=== PATIENT | female | born 1970 | race Caucasian/White ===

== ENCOUNTER 2020-10-25 08:55 | Outpatient (CLI) | payer MEDICARE, OTHER, SELFPAY ==
--- NOTE | ~2020-10-25 | MM_ITS ---
EXAMINATION: MM screening luis BI w wilian HISTORY: Screening TECHNIQUE: Craniocaudal and mediolateral oblique 3-D tomosynthesis images were obtained and synthetic 2-D images were generated. CAD analysis was submitted and interpreted. COMPARISON: Comparison to multiple prior studies sequentially, with oldest reviewed study dated 02/15. BREAST PARENCHYMAL COMPOSITION: There are scattered areas of fibroglandular density. FINDINGS: There is no evidence of suspicious mass, calcification, or architectural distortion to sugg est malignancy in either breast. There has been no suspicious interval change. IMPRESSION: 1. No mammographic evidence of malignancy. 2. Recommend routine screening mammography in one year. BI-RADS Category 1: Negative Reviewed, dictated and finalized at location A. TH CENTER ASSISTANT
== END 2020-10-25 08:56 | disposition home or self-care (01) ==
LOC: ANHIMG 08:58
PROVIDERS: PCP Family Medicine; Visit Provider Family Medicine
DX: Z12.31 Encounter for screening mammogram for malignant neoplasm of breast (principal)
CPT/HCPCS: 77063; 77067

== ENCOUNTER → 2020-11-30 12:35 | Outpatient (CLI) | payer MEDICARE, OTHER, SELFPAY ==
--- NOTE | ~2020-11-30 | US_ITS ---
EXAMINATION: US transvaginal DATE: 11/30/2020 12:56 INDICATION: Right upper quadrant pain. Comparison:No prior studies for comparison. TECHNIQUE: Multiple transabdominal and endovaginal sonographic images of the pelvis performed. FINDINGS: The uterus measures 4.3 x 1.6 x 2.8 cm. The endometrial complex measures 2 mm. The right ovary measures 2 x 1.1 x 1.2 cm and the left ovary measures 2.2 x 1.2 x 1.1 cm. There are small follicles in each ovary. There is normal Doppler signal in the ovaries. There is no free fluid in the pelvis. There are no abnormal masses seen on either side. IMPRESSION: 1. Unremarkable pelvic ultrasound. Reviewed, dictated and finalized at location A. EL SETTER
== END ==
PROVIDERS: PCP Family Medicine; Visit Provider Obstetrics & Gynecology Gynecology
DX: N83.201 Unspecified ovarian cyst, right side (principal)
CPT/HCPCS: 76830

== ENCOUNTER → 2021-01-20 17:37 | Outpatient (CLI) | payer MEDICARE, OTHER, SELFPAY ==
--- NOTE | ~2021-01-20 | DEXA_ITS ---
Bone Density Report Name: Tracey Lambert Age: 50 Sex: Female Ethnicity: White Date of : 1970 Indication: postmenopausal; screening for osteoporosis; height loss; history of glucocorticoids; asthma or emphysema; Referring Provider: JOHANNA MANZANO Study: Bone densitometry was performed. Exam Date: January 20, 2021 Accession number: [id number] Bone Density: Region BMD T-score Z-score Classification AP Spine (L1-L4) 1.298 2.3 3.1 Normal Femoral Neck (Left) 0.875 0.2 1.1 Normal Total Hip (Left) 0.963 0.2 0.7 Normal Femoral Neck (Right) 0.802 -0.4 0.4 Normal Total Hip (Right) 0.920 -0.2 0.3 Normal Total Hip Mean 0.942 0.0 0.5 Normal World Health Organization criteria for BMD impression classify patients as: Normal (T-score at or above -1.0), Osteopenia (T-score between -1.0 and -2.5), or Osteoporosis (T-score at or below -2.5). 10-year Fracture Risk: FRAX not reported because: All T-scores for Spine Total, Hip Total, Femoral Neck at or above -1.0 Previous Exams: Region Exam Age BMD T-score BMD Change BMD Change Date g/cm2 vs Baseline vs Previous AP Spine(L1-L4) 01/20/2021 50 1.298 2.3 0.095 0.082* 07/02/2018 47 1.216 1.5 0.013 0.077 06/23/2014 43 1.140 0.8 -0.064* -0.064* 09/26/2008 38 1.203 1.4 Total Hip(Left) 01/20/2021 50 0.963 0.2 -0.009 0.029* 07/02/2018 47 0.934 -0.1 -0.038 -0.002 06/23/2014 43 0.936 0.0 -0.036* -0.036* 09/26/2008 38 0.972 0.2 Total Hip(Right) 01/20/2021 50 0.920 -0.2 -0.094 -0.005 07/02/2018 47 0.926 -0.1 -0.089 0.024 06/23/2014 43 0.902 -0.3 -0.113* -0.113* 09/26/2008 38 1.015 0.6 *Denotes significance at 95% confidence level, LSC for AP Spine = 0.022 g/cm2, LSC for Total Hip = 0.027 g/cm2 Clinical Information Provided by Patient: Has taken Glucocorticoids Has used the following medications: Vitamin D Has the following medical conditions: Asthma or Emphysema Patient maximum height was 69.5 Does not regularly consume dairy products Drinks caffeinated beverages Onset of menses at age 7 Number of children 0 Missed period for more than 6 months in a row Impression: The patient has normal bone mass. The patient has risk factors, including: history of glucocorticoid therapy. No significant bone
== END ==
PROVIDERS: PCP Family Medicine; Visit Provider Obstetrics & Gynecology Gynecology
DX: Z78.0 Asymptomatic menopausal state (principal)
CPT/HCPCS: 77080

== ENCOUNTER 2021-01-24 12:35 | Inpatient (IN) | payer MEDICARE, OTHER, SELFPAY ==
--- NOTE | ~2021-01-24 | XR_ITS ---
EXAMINATION: XR chest 1V portable DATE: 01/25/2021 15:53 INDICATION: Hypoxia. TECHNIQUE: A single frontal view of the chest was obtained. COMPARISON: Chest 2 views 03/26/2015, CT abdomen and pelvis 01/24/2021 FINDINGS: There is mild atelectasis in the lower lung zones. No pleural effusion or pneumothorax. The heart size is normal. There is a right internal jugular port with tip at superior cavoatrial junctio n. IMPRESSION: 1. Mild atelectasis in the lower lung zones. Reviewed, dictated and finalized at location A.
--- NOTE | ~2021-01-24 | CT_ITS ---
EXAMINATION: CT abdomen pelvis w con DATE: 01/24/2021 15:46 INDICATION: Right lower quadrant abdominal pain. TECHNIQUE: Computed tomography (CT) of the abdomen and pelvis was performed with 100 mL Omnipaque 350 intravenous contrast. Automated exposure control and iterative reconstruction technique were employe d. The dose-length product was 1405.57 mGy-cm. COMPARISON: CT abdomen and pelvis 09/03/2019 FINDINGS: The visualized portions of the lung bases demonstrate mild atelectasis. No pleural effusion . The heart size is normal. No pericardial effusion. The liver is normal. The gallbladder is distende d. The spleen, pancreas, adrenal glands, and kidneys are normal. There is an anastomosis in the recto sigmoid, new from the prior exam. The appendix is absent. There are changes of multiple ventral herni a repairs. There is a small volume of fluid deep to a new mesh in the right lower quadrant. In the ri ght lower quadrant in the expected area of the appendix, there is a 7.1 x 3.6 x 3.5 cm rim-enhancing fluid collection. In the rectouterine pouch, there is a 7.7 x 3.8 x 3.4 cm rim-enhancing fluid collec tion. There is wall thickening of cecum and loops of ileum in right lower quadrant, consistent with i nflammation. There are no pathologically enlarged lymph nodes. There is severe lumbar spondylosis. IMPRESSION: 1. Rim-enhancing fluid collections in the right lower quadrant and rectouterine pouch, consistent wit h abscesses. 2. Gallbladder distention, which may be secondary to fasting. Reviewed, dictated and finalized at location A. IMPRESSION: 1. Rim-enhancing fluid collections in the right lower quadrant and rectouterine pouch, consistent with abscesses. 2. Gallbladder distention, which may be secondary to fasting.
[2021-01-24 12:40] VITALS: BP 131/75; PULSE 113; RESP 18; TEMP 38; O2SAT 98
[2021-01-24 12:58] LABS: Basophils Absolute Auto 0.1 K/mm3 (0.0-0.1); Basophils Percent Auto 0.4 % (0.2-1.2); Eosinophils Absolute Auto 0.3 K/mm3 (0-0.3); Eosinophils Percent Auto 1.8 % (0-4.4); Hematocrit 38.3 % (37.0-47.0); Hemoglobin 13.1 g/dL (12.0-15.0); Immature Granulocyte Absolute 0.08 K/mm3 (0.00-0.031); Immature Granulocyte Percent A 0.5 % (0-0.5); Lymphocytes Absolute Auto 1.67 K/mm3 (0.9-3.2); Lymphocytes Percent Auto 9.8 % (18.3-44.2); Mean Corpuscular HGB Conc 34.2 g/dl (32-36); Mean Corpuscular Hemoglobin 31.6 pg (26-34); Mean Corpuscular Volume 92.3 fl (80-100); Mean Platelet Volume 9.2 fl (7.4-10.4); Monocytes Absolute Auto 1.6 K/mm3 (0.1-0.6); Monocytes Percent Auto 9.2 % (2.6-8.5); Neutrophils Absolute Auto 13.3 K/mm3 (1.3-6.7); Neutrophils Percent Auto 78.3 % (45.5-73.1); Platelet Count Result 457 k/mm3 (150-375); Red Blood Count 4.15 M/mm3 (4.2-5.4); Red Cell Distribution Width 12.8 % (11.5-14.5)
[2021-01-24 13:10] LABS: Alanine Aminotransferase 12 U/L (4-35); Albumin Level 4.1 g/dL (3.5-5.1); Alkaline Phosphatase 65 U/L (38-126); Anion Gap 13 mmol/L (8-16); Aspartate Amino Transferase 18 U/L (14-36); Bilirubin,Total 0.8 mg/dL (0.2-1.3); Blood Urea Nitrogen 8 mg/dL (7-17); Calcium 8.6 mg/dL (8.4-10.2); Carbon Dioxide 21 mmol/L (22-30); Chloride 99 mmol/L (98-107); Estimated CRCL calculation 94 ml/min; Estimated Glomerular Filt Rate > 60; Glucose 116 mg/dL (65-105); Lipase 41 U/L (23-300); Potassium 3.1 mmol/L (3.4-5.0); Sodium 133 mmol/L (137-145)
[2021-01-24 14:36] VITALS: BP 136/74; PULSE 107; RESP 16; O2SAT 98
[2021-01-24] MEDS: SODIUM CHLORIDE 0.9% IV 1,000 ML 999 ML IV CONT (15:56)
[2021-01-24 16:06] LABS: Add Urine Microscopic? YES; Appearance Urine Cloudy (Clear); Bacteria Urine Trace /hpf; Bilirubin Urine Negative (Negative); Blood Urine Negative (Negative); Color Urine Amber (Yellow); Glucose Urine UA Negative (Negative); Ketones Urine 1+ mg/dL (Negative); Leukocyte Esterase Ur Negative LEU/UL (Negative); Mucus Urine Few /lpf; Nitrate Urine Negative (Negative); Protein Urine 2+ mg/dL (Negative); Specific Grav Ur 1.021 (1.001-1.035); Squamous Epithelial Cell Urine Few /hpf (Few); Urobilinogen Urine Negative mg/dL (<2.0)
--- NOTE | 2021-01-24 16:21 | ED.GENADULT ---
HPI - General Adult General Chief complaint: Nausea/Vomiting/Diarrhea Stated complaint: POST OP COMPLICATIONS Time Seen by Provider: 01/24/21 14:38 History of Present Illness HPI narrative: Patient is a 50-year-old female who presents ER with lower abdominal pain and fever. Patient underwent a operation on 12/28/2020 at [facility] by Dr. Zhou. Patient has history of ventral hernia and they placed a mesh in the right lower quadrant where she had some breakdown from previous surgery for partial colectomy. She reports she has been having persistent lower abdominal discomfort over the last month that she thought was related to her healing. She then started having fevers 4 days ago. They have been as high as 104.5 ?F. She reports she has been taking 325 mg of Tylenol to treat her fevers. She reports she feels like she is very dehydrated as she has been having some vomiting as well and is not keeping down food and water for the last 2 days. She denies any diarrhea. No abdominal distention. No abnormal discharge from the vagina. No urinary frequency/urgency/dysuria. Related Data Home Medications Medication Instructions Recorded Confirmed albuterol sulfate 09/03/19 11/03/19 amlodipine 10 mg PO DAILY 09/03/19 11/10/19 ciprofloxacin-dexamethasone drp 09/03/19 11/03/19 [Ciprodex] clindamycin-benzoyl peroxide TOPICAL 09/03/19 11/03/19 epinephrine 0.3 mg SUBCUT DIRECTED 09/03/19 11/10/19 ergocalciferol (vitamin D2) 50,000 unit PO DAILY 09/03/19 11/10/19 fluticasone propionate 50 mcg INTRANASAL DAILY 09/03/19 11/10/19 furosemide 40 mg PO DAILY 09/03/19 11/10/19 guaifenesin [Mucinex] 600 mg PO DAILY 09/03/19 11/10/19 hydrocodone-acetaminophen 2.5 - 325 tablet PO DAILY 09/03/19 11/10/19 lamotrigine 200 mg PO DAILY 09/03/19 11/10/19 omeprazole 20 mg PO DAILY 09/03/19 11/10/19 ondansetron HCl 4 mg PO DAILY 09/03/19 11/10/19 rivaroxaban [Xarelto] 20 mg PO DAILY 09/03/19 11/10/19 theophylline 300 mg PO DAILY 09/03/19 11/03/19 tiotropium bromide [Spiriva with 18 mcg INHALATION DAILY 09/03/19 11/03/19 HandiHaler] tobramycin 0.3 % OPHTHALMIC (EYE) DAILY 09/03/19 11/10/19 mometasone-formoterol HFA 200 2 puff INHALATION BID 11/03/19 11/10/19 mcg-5 mcg/actuation aerosol inhaler benzonatate 200 mg capsule 200 mg PO BID PRN 11/04/20 budesonide 0.5 mg/2 mL suspension 0.5 mg INHALATION DAILY 11/04/20 for nebulization fexofenadine 180 mg tablet 180 mg PO DAILY 11/04/20 ramipril 5 mg capsule 5 mg PO DAILY 11/04/20 Allergies Allergy/AdvReac Type Severity Reaction Status Date / Time aztreonam Allergy Intermediate RASH Verified 09/06/19 12:24 sulfamethoxazole Allergy Intermediate HIVES Verified 09/06/19 12:24 albuterol Allergy Mild Unknown Verified 09/06/19 12:24 adhesive Allergy Unknown rash Verified 09/06/19 12:24 aspirin Allergy Unknown anaphylaxis Verified 09/06/19 12:24 ciprofloxacin Allergy Unknown Unknown Verified 09/06/19 12:24 ibuprofen Allergy Unknown Anaphylaxis Verified 09/06/19 12:24 latex Allergy Unknown Dyspnea Verified 09/06/19 12:24 nifedipine Allergy Unknown Urticaria Verified 09/06/19 12:24 NSAIDS (Non-Steroidal Allergy Unknown Anaphylactic Verified 09/06/19 12:24 Anti-Inflamma Shock Penicillins Allergy Unknown Unknown Verified 09/06/19 12:24 shellfish derived Allergy Unknown Dyspnea / Verified 09/06/19 12:24 SOB soy Allergy Unknown Rash Verified 09/06/19 12:24 sulfamethizole Allergy Unknown Urticaria Verified 09/06/19 12:24 terbinafine Allergy Unknown Urticaria Verified 09/06/19 12:24 trimethoprim Allergy Unknown Unknown Verified 09/06/19 12:24 vancomycin Allergy Unknown Rash Verified 09/06/19 12:24 clioquinol [From Iohydro] AdvReac Dyspnea / Verified 09/06/19 12:24 SOB hydrocortisone [From Iohydro] AdvReac Dyspnea / Verified 09/06/19 12:24 SOB SHELL FISH Allergy Intermediate LIP Uncoded 11/09/19 12:24 SWELLING Review of Systems Review of Systems: All systems reviewed & are unremarkable
[2021-01-24] MEDS: MORPHINE SULFATE (*CRX) 4 MG/ML INJ IV PUSH ×2 (16:33→19:42)
--- NOTE | 2021-01-24 20:02 | PC.NURSE ---
Sarah from [facility] transfer...no beds available at [facility], at capacity. They don't expect anything until at least morning.
[2021-01-24 20:07] VITALS: BP 131/86; PULSE 83; RESP 16; TEMP 36.6; O2SAT 98
--- NOTE | 2021-01-24 23:10 | ADMGEN ---
This patient, Tracey Lambert, was admitted to Medical Room 340-01. Patient/family oriented to hospital policies and general routines including ID bracelet, bed and alarms, visiting hours, pain management, procedures, bathroom and other care routines, personal items, smoking policy, room service/diet, and visiting hours. Information on how to activate the Rapid Response Team has been discussed. Patient/Family are encouraged to report perceived risks to care and to ask questions if they do not understand what they are told or what they should do.
[2021-01-24 23:20] VITALS: BP 131/72; PULSE 116; RESP 20; TEMP 39.4; O2SAT 97; BMI 39.2
[2021-01-24] MEDS: SODIUM CHLORIDE 0.9% IV 1,000 ML 125 ML IV CONT (23:23)
[2021-01-24 23:52] LABS: Lactic Acid Reflex 1.5 mmol/L (0.7-2.1)
[2021-01-24 23:54] VITALS: TEMP 37.1
[2021-01-25] VITALS (9 sets, daily range): BP systolic 117–134; BP diastolic 62–79; PULSE 88–125; RESP 18–22; TEMP 37.7–40.1; O2SAT 88–98
[2021-01-25] MEDS: MORPHINE SULFATE (*CRX) 4 MG/ML INJ IV PUSH ×5 (00:54→16:00)
[2021-01-25] MEDS: ONDANSETRON INJ 4 MG/2 ML VIAL IV PUSH ×3 (00:55→13:54)
--- NOTE | 2021-01-25 05:43 | PM.SD2 ---
Same Day Admit/Disch: HPI History of Present Illness Chief complaint: intrabdominal abscess Narrative: H&P/transfer summary Tracey Lambert is a 50 year old female with a past medical history of immunodeficiency, COPD/asthma, and recent ventral hernia repair who presented to the ER with nausea vomiting and fevers for 4 days. She reports that she had a right ventral hernia repair December 28, 2020 with mesh placed. This was performed at [facility]. She reports that ever since she had surgery she has had intermittent abdominal discomfort. She has noticed that recently her abdominal pain has worsened instead of improving. She reports that she frequently does have low-grade temperatures at specially around times of her immunoglobulin infusions. However over the last 4 days she has had fevers as high as 104.5. She has been taking 325 mg with Tylenol to treat her fevers without relief in symptoms. She reports feeling dry and dehydrated. She has been having some vomiting for the last 2 days. She has not been having any diarrhea. She has some mild abdominal distension but is essentially unchanged from her preop state. She denies any dysuria or hematuria. She has not had any vaginal discharge. She denies any mucus year bloody stools. She received her 2nd COVID vaccine on January 09, 2021. The patient's case was discussed with nurse practitioner rn lactation consultant for the hospitalist service at [facility]. Given the patient's clinical stability in the fact that she was on the medical floor her bed request was changed to a request for medical bed. [facility], [facility] Past Medical History Medical History (Updated 01/25/21 @ 15:34 by Monique Sanchez DO) Abnormal uterine bleeding Anxiety Arthritis Arthropathy of right knee Asthma Bronchitis Colitis Dx 03 September 2019 COPD (chronic obstructive pulmonary disease) Depression DVT (deep venous thrombosis) Emphysema of lung Fibromyalgia Foot fracture, left GERD (gastroesophageal reflux disease) GI bleed History of oxygen administration HLD (hyperlipidemia) HTN (hypertension) IgM deficiency Irritable bowel Ovarian cyst PCOS (polycystic ovarian syndrome) Pneumonia Pulmonary embolism Raynauds syndrome Sinus problem UTI (urinary tract infection) Surgical History Surgical History (Updated 01/25/21 @ 14:07 by Monique Sanchez DO) H/O dilation and curettage H/O sinus surgery History of endometrial ablation History of ventral hernia repair (12/28/20) Hx of appendectomy Hx of tonsillectomy S/P laparoscopic-assisted sigmoidectomy (~03/2020) Performed due to: Stricture resulting in right ventral hernia Family History Family History (Updated 01/25/21 @ 14:09 by Monique Sanchez DO) Father Hypertension Diabetes mellitus Mother Hypertension Acute myocardial infarction Heart disease Rheumatoid arthritis Sibling Hypertension Other Family history of gout Family history of obesity Family history unknown Social History Social History Smoking status: Never smoker Alcohol intake: current Drinks per week: 1 Substance use: never Living arrangements: with family Gender identity (if verbalized by the patient): Female Spiritual care concerns: No Same Day Admit/Disch: Med Pre-admit Medications Home Medications Medication Instructions Recorded Confirmed Type albuterol sulfate 2.5 mg INHALATION Q6H PRN 09/03/19 01/25/21 History amlodipine 10 mg PO DAILY 09/03/19 01/25/21 History clindamycin-benzoyl peroxide 1 applic TOPICAL BID 09/03/19 01/25/21 History epinephrine 0.3 mg SUBCUT DIRECTED PRN 09/03/19 01/25/21 History ergocalciferol (vitamin D2) 50,000 unit PO WEEKLY 09/03/19 01/25/21 History fluticasone propionate 50 mcg INTRANASAL DAILY 09/03/19 01/25/21 History furosemide 40 mg PO DAILY 09/03/19 01/25/21 History guaifenesin [Mucinex] 600 mg PO DAILY 09/03/19 01/25/21 History lamotrigine 200 mg PO BID 09/03/19
[2021-01-25 06:39] LABS: Hematocrit 38.6 % (37.0-47.0); Hemoglobin 12.7 g/dL (12.0-15.0); Mean Corpuscular HGB Conc 32.9 g/dl (32-36); Mean Corpuscular Hemoglobin 31.1 pg (26-34); Mean Corpuscular Volume 94.4 fl (80-100); Mean Platelet Volume 9.3 fl (7.4-10.4); Platelet Count Result 439 k/mm3 (150-375); Red Blood Count 4.09 M/mm3 (4.2-5.4); Red Cell Distribution Width 13.1 % (11.5-14.5); White Blood Count 12.6 K/mm3 (4.5-10.0)
[2021-01-25 06:47] LABS: Anion Gap 10 mmol/L (8-16); Blood Urea Nitrogen 8 mg/dL (7-17); Calcium 8.4 mg/dL (8.4-10.2); Carbon Dioxide 25 mmol/L (22-30); Chloride 102 mmol/L (98-107); Estimated CRCL calculation 94 ml/min; Estimated Glomerular Filt Rate > 60; Glucose 99 mg/dL (65-105); Sodium 137 mmol/L (137-145)
[2021-01-25 06:50] LABS: Potassium 3.2 mmol/L (3.4-5.0)
[2021-01-25] MEDS: SODIUM CHLORIDE 0.9% IV 1,000 ML 100 ML IV CONT (10:01)
[2021-01-25] MEDS: FLUTICASONE PROPIONATE 0.05% NA SPR 16 GM BTL (*BKC) 2 SPRAY NASAL (10:03)
[2021-01-25] MEDS: PANTOPRAZOLE SODIUM IV 40 MG VIAL IV PUSH (10:04)
--- NOTE | 2021-01-25 14:55 | PM.IMPN ---
Progress Note: A&P Assessment and Plan (1) Sepsis: Qualifiers: Sepsis type: sepsis due to unspecified organism Sepsis acute organ dysfunction status: without acute organ dysfunction Qualified Code(s): A41.9 - Sepsis, unspecified organism Code(s): A41.9 - Sepsis, unspecified organism Status: Acute Assessment and Plan: Sepsis criteria met on admission with leukocytosis fever, intra-abdominal abscess. This afternoon patient spiked a fever of 104?, she was given IV Tylenol with improvement of temperature 98?. Will schedule Tylenol q.6 hours IV. She is tachycardic with a stable blood pressure at this time. She was found to be hypoxic, 88% on room air. She was placed on 1 L of oxygen and ordered stat DuoNeb treatment with improvement of her oxygen saturation at 97% on 1 L. will continue monitoring respiratory status Chest x-ray was ordered Patient is on empiric antibiotic therapy with Zosyn and blood cultures are pending. (2) Abscess, intra-abdominal, postoperative: Code(s): T81.43XA - Infection following a procedure, organ and space surgical site, initial encounter Status: Acute Assessment and Plan: The patient has intra-abdominal abscess following ventral hernia repair with mesh placement 12/28/20. Patient is awaiting a bed at [facility]. Patient is on empiric antibiotic therapy with Zosyn. She is currently NPO with ice chips. Blood cultures are pending. Leukocytosis has improved with antibiotic therapy. (3) Hypoxia: Code(s): R09.02 - Hypoxemia Status: Acute Assessment and Plan: Ordering chest x-ray. Could be due to COPD and not taking her inhaler this morning. Will schedule DuoNebs every 6 hours. If patient does have underlying pneumonia she is still being cover with the correct antibiotics with IV Zosyn. (4) COPD (chronic obstructive pulmonary disease): Code(s): J44.9 - Chronic obstructive pulmonary disease, unspecified Status: Acute Assessment and Plan: DuoNeb treatments scheduled. Will continue monitoring her respiratory status. 97% on 1 L at this time. Will wean as tolerated. Time Spent With Patient Time with patient: 25 - 35 minutes Subjective Date/time seen: 01/25/21 14:55 Interval history: Date of service 01/25/21: Evaluated the patient who is awaiting transfer to [facility]. She reports having a fever and shaking chills at this time. She was coughing up some yellow sputum, and she did not take her inhaler this morning for her COPD. She denies any shortness of breath, chest pain. She does have some abdominal distension and discomfort as well as some nausea. She denies any vomiting at this time. Review of Systems Review of Systems: All systems reviewed & are unremarkable except as noted in HPI and below Exam Narrative: Exam Narrative: General: 50-year-old woman laying on her right side in bed bundled up under blankets, shaking. Appears comfortable. In no acute distress. Skin: No jaundice or cyanosis. Good skin turgor. Neck: Full range of motion. Supple. Respiratory: Diffuse wheezing, and coarse breath sounds. No bony chest wall tenderness. Cardiovascular: Tachycardic heart rate, normal rhythm. Lower extremities: No lower extremity edema. Distal pulses are easily palpated. No calf tenderness to palpation. Gastrointestinal: Small laparoscopic abdominal incisions well healing, no signs of erythema, drainage, or abnormality. The abdomen has slight distention and mild tenderness to palpation. Active bowel sounds. Psychiatric: Lucid and oriented. Memory intact. Neurologic: No focal deficits. Speech is clear. No facial drooping. Objective Data Vital Signs Vital Signs: Vital Signs - 24 hr 01/24/21 20:
[2021-01-25] MEDS: ALBUTEROL SULFATE NEB 2.5 MG/0.5 ML INH INHALATION (15:30)
[2021-01-25] MEDS: IPRATROPIUM BR 0.02% INH SOLN 0.5 MG/2.5 ML VIAL INHALATION (15:30)
--- NOTE | 2021-01-25 15:37 | PM.IMHP ---
H&P: HPI History of Present Illness Date/Time: 01/25/21 15:37 Chief Complaint: Fever and abdominal pain Narrative: Tracey Lambert is a 50 year old female with a past medical history of immunodeficiency, COPD/asthma, and recent ventral hernia repair who presented to the ER with nausea vomiting and fevers for 4 days. She reports that she had a right ventral hernia repair December 28, 2020 with mesh placed. This was performed at [facility]. She reports that ever since she had surgery she has had intermittent abdominal discomfort. She has noticed that recently her abdominal pain has worsened instead of improving. She reports that she frequently does have low-grade temperatures at specially around times of her immunoglobulin infusions. However over the last 4 days she has had fevers as high as 104.5. She has been taking 325 mg with Tylenol to treat her fevers without relief in symptoms. She reports feeling dry and dehydrated. She has been having some vomiting for the last 2 days. She has not been having any diarrhea. She has some mild abdominal distension but is essentially unchanged from her preop state. She denies any dysuria or hematuria. She has not had any vaginal discharge. She denies any mucus year bloody stools. She received her 2nd COVID vaccine on January 09, 2021. The patient's case was discussed with nurse practitioner consulting business developer for the hospitalist service at [facility]. Given the patient's clinical stability in the fact that she was on the medical floor her bed request was changed to a request for medical bed. Review of Systems Review of Systems: Narrative: 12 systems were reviewed with pertinent positives and negatives per HPI. Except as documented in the HPI, all other systems were reviewed and are negative. [facility] Past Medical History Medical History (Updated 01/25/21 @ 15:34 by Monique Sanchez DO) Abnormal uterine bleeding Anxiety Arthritis Arthropathy of right knee Asthma Bronchitis Colitis Dx 03 September 2019 COPD (chronic obstructive pulmonary disease) Depression DVT (deep venous thrombosis) Emphysema of lung Fibromyalgia Foot fracture, left GERD (gastroesophageal reflux disease) GI bleed History of oxygen administration HLD (hyperlipidemia) HTN (hypertension) IgM deficiency Irritable bowel Ovarian cyst PCOS (polycystic ovarian syndrome) Pneumonia Pulmonary embolism Raynauds syndrome Sinus problem UTI (urinary tract infection) Surgical History Surgical History (Updated 01/25/21 @ 14:07 by Monique Sanchez DO) H/O dilation and curettage H/O sinus surgery History of endometrial ablation History of ventral hernia repair (12/28/20) Hx of appendectomy Hx of tonsillectomy S/P laparoscopic-assisted sigmoidectomy (~03/2020) Performed due to: Stricture resulting in right ventral hernia Family History Family History (Updated 01/25/21 @ 14:09 by Monique Sanchez DO) Father Hypertension Diabetes mellitus Mother Hypertension Acute myocardial infarction Heart disease Rheumatoid arthritis Sibling Hypertension Other Family history of gout Family history of obesity Family history unknown Social History Social History Smoking status: Never smoker Alcohol intake: current Drinks per week: 1 Substance use: never Living arrangements: with family Gender identity (if verbalized by the patient): Female Spiritual care concerns: No Meds Home Medications and Allergies Home Medications Medication Instructions Recorded Confirmed Type albuterol sulfate 2.5 mg INHALATION Q6H PRN 09/03/19 01/25/21 History amlodipine 10 mg PO DAILY 09/03/19 01/25/21 History clindamycin-benzoyl peroxide 1 applic TOPICAL BID 09/03/19 01/25/21 History epinephrine 0.3 mg SUBCUT DIRECTED PRN 09/03/19 01/25/21 History ergocalciferol (vitamin D2) 50,000 unit PO WEEKLY 09/03/19 01/25/21 History fluticasone propionate 50 mcg INTRANASAL
--- NOTE | 2021-01-25 16:06 | PC.NURSE ---
Observed patient care and reviewed documentation by [facility] student nurse Tiffany Brower
[2021-01-25] MEDS: ENOXAPARIN 120 MG/0.8 ML SYRINGE 115 MG SUB-Q (17:05)
--- NOTE | 2021-01-25 17:52 | PC.NURSE ---
Handoff report given to Shereen at [facility] concerned over Temperature. Pt received IV ofirmev and temperature was taken and reported to Shereen at time of DC.
--- NOTE | 2021-01-27 12:51 | PC.NURSE ---
urine cx results faxed to RN at [facility].
--- NOTE | 2021-01-31 12:17 | PC.NURSE ---
Blood cx are negative.
== END 2021-01-25 17:40 | disposition short-term general hospital (02) | DRG 862 ==
LOC: ANHED 21:32 → ANH3MED 22:09
PROVIDERS: Admitting Provider Internal Medicine; Emergency Provider Emergency Medicine; PCP Family Medicine; Visit Provider Internal Medicine
DX: T81.43XA Infection following a procedure, organ and space surgical site, initial encounter (principal); A41.9 Sepsis, unspecified organism; D83.9 Common variable immunodeficiency, unspecified; R09.02 Hypoxemia; J43.9 Emphysema, unspecified; I10 Essential (primary) hypertension; E78.5 Hyperlipidemia, unspecified; K21.9 Gastro-esophageal reflux disease without esophagitis; M79.7 Fibromyalgia; I73.00 Raynaud's syndrome without gangrene; Z79.01 Long term (current) use of anticoagulants; Z79.899 Other long term (current) drug therapy; Z86.711 Personal history of pulmonary embolism; Z86.718 Personal history of other venous thrombosis and embolism; Z90.49 Acquired absence of other specified parts of digestive tract; Z88.0 Allergy status to penicillin; Z88.2 Allergy status to sulfonamides; Z88.8 Allergy status to other drugs, medicaments and biological substances
CPT/HCPCS: 36415; 71045; 74177; 80048; 80053; 81001; 83605; 83690; 85025; 85027; 87040; 87077; 87086; 87088; 87186; 94640; 96361; 96365; 96375; 96376; 99285; A9270; C9113; G0378; J0131; J1650; J2270; J2405; J2543; J3480; J7030; Q9967

== ENCOUNTER → 2021-09-24 07:49 | Outpatient (CLI) | payer MEDICARE, OTHER, SELFPAY ==
--- NOTE | ~2021-09-24 | US_ITS ---
US abdomen complete EXAMINATION: US Abdomen Complete INDICATION: Nocturnal polyuria PROCEDURE: Realtime High Resolution abdomen ultrasound. COMPARISON: No prior studies for comparison FINDINGS: Gallbladder is surgically absent. Common bile duct measures 3 mm. Liver echotexture within normal limits without focal mass. Pancreas within normal limits. Pancreati c tail is obscured by bowel gas. Spleen is unremarkeable. Renal echotexture is within normal limits bilaterally without hydronephrosis, contour deforming mass or renal stone. Right kidney measures 10.1 cm. Left kidney measures 9.4 cm. Visualized aspects of the aorta and IVC are within normal limits. Portal vein is patent. IMPRESSION: 1: Normal abdominal ultrasound postcholecystectomy. Reviewed, dictated and finalized at location A. [facility]
== END ==
PROVIDERS: Visit Provider Family Medicine
DX: R35.81 Nocturnal polyuria (principal)
CPT/HCPCS: 76700

== ENCOUNTER → 2021-09-26 09:49 | Outpatient (CLI) | payer MEDICARE, OTHER, SELFPAY ==
--- NOTE | ~2021-09-26 | US_ITS ---
EXAMINATION: US pelvic complete DATE: 09/26/2021 10:07 INDICATION: Polyuria. Patient is postmenopausal. No hormone replacement therapy. Comparison:Ultrasound dated 11/30/2020 TECHNIQUE: Multiple transabdominal and endovaginal sonographic images of the pelvis performed. FINDINGS: The uterus measures 5.6 x 2.2 x 2.8 cm. The endometrial complex measures 5 mm. The ovaries are not visualized. There is no free fluid in the pelvis. There are no abnormal masses seen on either side. IMPRESSION: 1. Thickened endomtrial complex. The differential diagnosis includes endometrial hyperplasia, polyp a nd carcinoma. Biopsy is recommended. Reviewed, dictated and finalized at location B. EL TRUCK DRIVER IMPRESSION: 1. Thickened endomtrial complex. The differential diagnosis includes endometria l hyperplasia, polyp and carcinoma. Biopsy is recommended.
== END ==
PROVIDERS: PCP Family Medicine; Visit Provider Family Medicine
DX: R35.81 Nocturnal polyuria (principal); R93.89 Abnormal findings on diagnostic imaging of other specified body structures
CPT/HCPCS: 76856

== ENCOUNTER 2021-10-03 11:35 | Emergency (ER) | payer MEDICARE, OTHER, SELFPAY ==
--- NOTE | ~2021-10-03 | CT_ITS ---
EXAMINATION: CT abdomen pelvis w con EXAM DATE: 10/03/2021 17:48 INDICATION: Right lower quadrant pain. TECHNIQUE: Spiral CT of the abdomen and pelvis was performed following intravenous injection of 100 m L Omnipaque 350. Axial, coronal and sagittal images of the abdomen and pelvis were reviewed. The do se-length product (DLP) for this examination was 1275.63 mGy-cm. The exposure was tailored according to patient size (auto mA exposure control), and iterative reconstruction (ASIR) was used as addition al dose reduction technique. Comparison is made to prior examination from 01/24/2021. FINDINGS: Previously seen pelvic abscess has resolved. Development of left lower lobe subsegmental po steromedial airspace disease which could be bacterial pneumonia. Minimal amount of right lower lobe m edial airspace disease. The liver, spleen, adrenal glands and pancreas are unremarkable. There are cholecystectomy clips. P ortal and splenic veins are patent. Kidneys enhance symmetrically. There is no hydronephrosis. Ther e is punctate left nephrolithiasis. No ureteral stones. The uterus is unremarkable. The bladder is unremarkable. There is no retroperitoneal or pelvic lymphadenopathy. There is mild scattered naomy riosclerotic disease. Anterior abdominal wall mesh anchors. There is a right lower quadrant abdominal wall hernia which is moderate in size with a loop of nonobstructed small bowel bulging inside, is new compared to previous examination. The appendix is not positively visualized. There is no pericecal inflammatory change to suggest appe ndicitis. The stomach and small bowel are unremarkable. There is expected amount of colonic stool. No free intraperitoneal gas. There are no osteoblastic or osteolytic lesions identified. IMPRESSION: 1. Small amount of bibasilar left greater than right subsegmental airspace disease, would favor bact erial pneumonia over atelectasis. 2. Development of right lower quadrant hernia containing nonobstructed small bowel. 3. Punctate left nephrolithiasis. Reviewed, dictated and finalized at location A. ESTATE MARKETING COORDINATOR IMPRESSION: 1. Small amount of bibasilar left greater than right subsegmental airspace dis ease, would favor bacterial pneumonia over atelectasis. 2. Development of right lower quadrant hernia containing nonobstructed small b owel. 3. Punctate left nephrolithiasis.
[2021-10-03 11:55] VITALS: BP 138/91; PULSE 104; RESP 16; TEMP 36.8; O2SAT 96
[2021-10-03 15:33] VITALS: BP 143/79; PULSE 105; TEMP 38.7; O2SAT 100
[2021-10-03 16:33] LABS: Add Urine Microscopic? YES; Appearance Urine Cloudy (Clear); Bacteria Urine Trace /hpf; Bilirubin Urine Negative (Negative); Blood Urine Negative (Negative); Color Urine Yellow (Yellow); Glucose Urine UA Negative (Negative); Ketones Urine Trace mg/dL (Negative); Leukocyte Esterase Ur Negative LEU/UL (Negative); Mucus Urine Rare /lpf; Nitrate Urine Negative (Negative); Protein Urine Negative (Negative); Specific Grav Ur 1.018 (1.001-1.035); Squamous Epithelial Cell Urine Few /hpf (Few); Urobilinogen Urine Negative mg/dL (<2.0); WBC Urine 0-3 /hpf
[2021-10-03 16:54] VITALS: BP 137/76; PULSE 98; RESP 18; O2SAT 98
[2021-10-03 17:04] VITALS: BP 149/100; PULSE 100; RESP 17; O2SAT 96
[2021-10-03 17:04] LABS: Basophils Absolute Auto 0.1 K/mm3 (0.0-0.1); Basophils Percent Auto 0.6 % (0.2-1.2); Eosinophils Absolute Auto 0.3 K/mm3 (0-0.3); Eosinophils Percent Auto 2.4 % (0-4.4); Hematocrit 35.2 % (37.0-47.0); Hemoglobin 12.2 g/dL (12.0-15.0); Immature Granulocyte Absolute 0.04 K/mm3 (0.00-0.031); Immature Granulocyte Percent A 0.3 % (0-0.5); Lymphocytes Absolute Auto 1.97 K/mm3 (0.9-3.2); Lymphocytes Percent Auto 15.6 % (18.3-44.2); Mean Corpuscular HGB Conc 34.7 g/dl (32-36); Mean Corpuscular Hemoglobin 32.5 pg (26-34); Mean Corpuscular Volume 93.9 fl (80-100); Mean Platelet Volume 9.2 fl (7.4-10.4); Monocytes Absolute Auto 1.3 K/mm3 (0.1-0.6); Monocytes Percent Auto 10.5 % (2.6-8.5); Neutrophils Absolute Auto 8.9 K/mm3 (1.3-6.7); Neutrophils Percent Auto 70.6 % (45.5-73.1); Platelet Count Result 337 k/mm3 (150-375); Red Blood Count 3.75 M/mm3 (4.2-5.4); Red Cell Distribution Width 13.4 % (11.5-14.5); White Blood Count 12.6 K/mm3 (4.5-10.0)
[2021-10-03 17:14] LABS: Lactic Acid Reflex 0.8 mmol/L (0.7-2.1)
[2021-10-03 17:16] LABS: Alanine Aminotransferase 15 U/L (4-35); Albumin Level 4.4 g/dL (3.5-5.1); Alkaline Phosphatase 71 U/L (38-126); Anion Gap 13 mmol/L (8-16); Aspartate Amino Transferase 23 U/L (14-36); Bilirubin,Total 0.6 mg/dL (0.2-1.3); Blood Urea Nitrogen 7 mg/dL (7-17); Calcium 9.1 mg/dL (8.4-10.2); Carbon Dioxide 22 mmol/L (22-30); Chloride 98 mmol/L (98-107); Estimated CRCL calculation 107 ml/min; Estimated Glomerular Filt Rate > 60; Glucose 107 mg/dL (65-110); Lipase 57 U/L (23-300); Potassium 3.1 mmol/L (3.4-5.0); Sodium 133 mmol/L (137-145)
--- NOTE | 2021-10-03 18:38 | ED.ABDPAIN ---
HPI - Abdominal Pain General Chief Complaint: Abdominal Pain Stated Complaint: abd pain Time Seen by Provider: 10/03/21 16:11 Source: patient Mode of arrival: ambulatory Limitations: no limitations History of Present Illness HPI narrative: 51-year-old with a history of hypertension, hyperlipidemia, PCOS, multiple other medical problems here with complaints of fever and associated with right lower abdominal pain for past 2 to 3 days. She states her temperature was 100.3 this morning. She denies any nausea or vomiting. She states that she had diarrhea. Patient states that she becomes septic quite often. MD elicited complaint: abdominal pain Onset (ago): day(s) (3) Pain Consistency: constant Quality: cramping and aching Radiation: RLQ Migration to: no migration Exacerbating factors: nothing Relieving factors: nothing Related Data Home Medications Medication Instructions Recorded Confirmed albuterol sulfate 2.5 mg INHALATION Q6H PRN 09/03/19 01/25/21 amlodipine 10 mg PO DAILY 09/03/19 01/25/21 clindamycin-benzoyl peroxide 1 applic TOPICAL BID 09/03/19 01/25/21 epinephrine 0.3 mg SUBCUT DIRECTED PRN 09/03/19 01/25/21 ergocalciferol (vitamin D2) 50,000 unit PO WEEKLY 09/03/19 01/25/21 fluticasone propionate 50 mcg INTRANASAL DAILY 09/03/19 01/25/21 furosemide 40 mg PO DAILY 09/03/19 01/25/21 guaifenesin [Mucinex] 600 mg PO DAILY 09/03/19 01/25/21 lamotrigine 200 mg PO BID 09/03/19 01/25/21 omeprazole 40 mg PO BID 09/03/19 01/25/21 ondansetron HCl 4 mg PO Q8H PRN 09/03/19 01/25/21 rivaroxaban [Xarelto] 20 mg PO DAILY 09/03/19 01/25/21 theophylline 300 mg PO BID 09/03/19 01/25/21 tiotropium bromide [Spiriva with 18 mcg INHALATION DAILY 09/03/19 01/25/21 HandiHaler] mometasone-formoterol HFA 200 2 puff INHALATION BID 11/03/19 01/25/21 mcg-5 mcg/actuation aerosol inhaler benzonatate 200 mg capsule 200 mg PO TID PRN 11/04/20 01/25/21 budesonide 0.5 mg/2 mL suspension 0.5 mg INHALATION DAILY 11/04/20 01/25/21 for nebulization fexofenadine 180 mg tablet 180 mg PO DAILY 11/04/20 01/25/21 ramipril 5 mg capsule 5 mg PO BID 11/04/20 01/25/21 cetirizine-pseudoephedrine 1 tablet PO DAILY 01/25/21 01/25/21 diphenhydramine HCl [Allergy 25 mg PO HS 01/25/21 01/25/21 (diphenhydramine)] fluticasone propionate [Flovent 1 puff INHALATION BID 01/25/21 01/25/21 HFA] althea (Zingiber officinalis) 550 mg PO BIDWMEAL 01/25/21 01/25/21 hydrocodone-acetaminophen 1 tablet PO Q4H PRN 01/25/21 01/25/21 peg 400-propylene glycol [Systane 1 drp EACH EYE BID PRN 01/25/21 01/25/21 (propylene glycol)] polyethylene glycol 3350 17 g PO DAILY 01/25/21 01/25/21 Allergies Allergy/AdvReac Type Severity Reaction Status Date / Time shellfish derived Allergy Severe Swelling Verified 10/03/21 17:06 of Lip/Tongue/Throat aztreonam Allergy Intermediate RASH Verified 10/03/21 17:06 sulfamethoxazole Allergy Intermediate HIVES Verified 10/03/21 17:06 albuterol Allergy Mild Unknown Verified 10/03/21 17:06 adhesive Allergy Unknown rash Verified 10/03/21 17:06 aspirin Allergy Unknown anaphylaxis Verified 10/03/21 17:06 ciprofloxacin Allergy Unknown Unknown Verified 10/03/21 17:06 ibuprofen Allergy Unknown Anaphylaxis Verified 10/03/21 17:06 latex Allergy Unknown Dyspnea Verified 10/03/21 17:06 nifedipine Allergy Unknown Urticaria Verified 10/03/21 17:06 NSAIDS (Non-Steroidal Allergy Unknown Anaphylactic Verified 10/03/21 17:06 Anti-Inflamma Shock Penicillins Allergy Unknown Unknown Verified 10/03/21 17:06 sulfamethizole Allergy Unknown Urticaria Verified 10/03/21 17:06 terbinafine Allergy Unknown Urticaria Verified 10/03/21 17:06 trimethoprim Allergy Unknown Unknown Verified 10/03/21 17:06 vancomycin Allergy Unknown Rash Verified 10/03/21 17:06 clioquinol [From Iohydro] AdvReac Dyspnea / Verified 10/03/21 17:06 SOB hydrocortisone [From Ionoonan] AdvReac Dyspnea / Verified 10/03/21 17:06 SOB Review of Systems Review of Systems: All system
[2021-10-03] MEDS: ACETAMINOPHEN 325 MG TABLET 650 MG PO (19:06)
[2021-10-03] MEDS: HEPARIN SODIUM LOCK FLUSH 500 UNITS/5 ML VIAL (19:12)
[2021-10-03 19:20] VITALS: BP 154/86; PULSE 100; RESP 14; O2SAT 97
== END 2021-10-03 19:21 | disposition home or self-care (01) ==
PROVIDERS: Emergency Provider Family Medicine; PCP Family Medicine
DX: J18.9 Pneumonia, unspecified organism (principal); R10.31 Right lower quadrant pain; I10 Essential (primary) hypertension; E78.5 Hyperlipidemia, unspecified; E28.2 Polycystic ovarian syndrome; J43.9 Emphysema, unspecified; K58.9 Irritable bowel syndrome, unspecified; I73.00 Raynaud's syndrome without gangrene; Z86.718 Personal history of other venous thrombosis and embolism; Z86.711 Personal history of pulmonary embolism; Z87.440 Personal history of urinary (tract) infections; K46.9 Unspecified abdominal hernia without obstruction or gangrene; N20.0 Calculus of kidney
CPT/HCPCS: 36415; 74177; 80053; 81001; 83605; 83690; 85025; 99284; A9270; J1642; Q9967

== ENCOUNTER → 2021-11-02 13:02 | Outpatient (CLI) | payer MEDICARE, OTHER, SELFPAY ==
--- NOTE | ~2021-11-02 | US_ITS ---
EXAMINATION: US thyroid DATE: 11/02/2021 13:27 INDICATION: Goiter. TECHNIQUE: Multiple ultrasound images of the thyroid were obtained. COMPARISON: Ultrasound 08/15/2019 FINDINGS: The right thyroid lobe measures 4.6 x 1.5 x 1.5 cm. The left thyroid lobe measures 3.7 x 1.4 x 1.4 c m. In the right thyroid lobe, there is a 4 mm nodule. IMPRESSION: 1. Small thyroid nodule, likely not clinically significant. No follow-up is needed. Reviewed, dictated and finalized at location A. HASING COORDINATOR IMPRESSION: 1. Small thyroid nodule, likely not clinically significant. No follow-up is nee ded.
== END ==
PROVIDERS: Visit Provider Internal Medicine Endocrinology, Diabetes & Metabolism
DX: E04.1 Nontoxic single thyroid nodule (principal)
CPT/HCPCS: 76536

== ENCOUNTER → 2021-11-04 11:54 | Outpatient (CLI) | payer MEDICARE, OTHER, SELFPAY ==
--- NOTE | ~2021-11-04 | MM_ITS ---
EXAMINATION: MM screening [facility] BI w wilian HISTORY: Screening mammogram TECHNIQUE: Craniocaudal and mediolateral oblique 3-D tomosynthesis images were obtained and synthetic 2-D images were generated. CAD analysis was submitted and interpreted. COMPARISON: 10/25/2020, 07/28/2019, 06/05/2018 BREAST PARENCHYMAL COMPOSITION: The breasts are almost entirely fatty. FINDINGS: There is no evidence of suspicious mass, calcification, or architectural distortion to sugg est malignancy in either breast. There has been no suspicious interval change. IMPRESSION: 1. No mammographic evidence of malignancy. 2. Recommend routine screening mammography in one year. BI-RADS Category 1: Negative Reviewed, dictated and finalized at location A. D COOK
== END ==
PROVIDERS: Visit Provider Obstetrics & Gynecology Gynecology
DX: Z12.31 Encounter for screening mammogram for malignant neoplasm of breast (principal)
CPT/HCPCS: 77063; 77067

== ENCOUNTER 2021-11-11 09:33 | Outpatient (CLI) | payer MEDICARE, OTHER, SELFPAY ==
[2021-11-15 14:34] LABS: Theophylline 7.7 mg/L (10.0-20.0)
== END 2021-11-11 09:34 | disposition home or self-care (01) ==
PROVIDERS: Anesthesiology; Visit Provider Obstetrics & Gynecology Gynecology
DX: Z01.812 Encounter for preprocedural laboratory examination (principal); Z51.81 Encounter for therapeutic drug level monitoring; Z79.899 Other long term (current) drug therapy
CPT/HCPCS: 36415; 80198

== ENCOUNTER 2021-11-14 00:15 | Day surgery (SDC) | payer MEDICARE, OTHER, SELFPAY ==
--- NOTE | 2021-11-08 10:12 | PC.NURSE ---
Report to the Outpatient Waiting Room, entrance under the green pavilion located off [facility], at time 8:00 on date 11/14/21. OR Time: 10:00. - You will be asked a series of questions to screen for COVID 19 for your protection. - A mask is required within the hospital. - No visitors are allowed at this time. Preoperative COVID Testing Requirements: No COVID Test needed if: (proof is required; if not received patient will have Rapid Test prior to entry) - Patient has received COVID Vaccine at least 14 days prior to procedure date or - Patient has positive COVID test result within last 90 days of surgery date. COVID Test needed if above criteria is not met Patients may have clear liquids (water, carbonated beverages, clear teas, apple juice) until 3 hours prior to surgery (7:00) with a maximum of 20 ounces. - No food from midnight until time of surgery Take the following medications with a SIP of water the morning of surgery: INHALERS. AMLODIPINE, THEOPHYLLINE Medications to discontinue per physician: VITAMINS/SUPPLEMENTS Date to take last dose: 11/10/[address] MANZANO (5 DAYS PRIOR TO SURGERY, LAST DOSE 11/08/21) Please no make-up, nail yemeni, hairspray, perfume, deodorant, or body powder the day of surgery. No jewelry (including any body piercings) or valuables the day of surgery, leave them at home. Please take a shower or bath the night before, or the morning of, surgery with an antibacterial soap. Wear comfortable, loose fitting clothing. - Jewelry must be removed prior to entering the operating room. Rings and piercings that are not removed may be cut off. - The hospital will not accept responsibility for valuables. - Please leave all valuables, including medications, at home the day of surgery. If you are going home after surgery, a licensed pile driver engineer must drive you home. - NO public transportation without another adult. - We recommend that an adult stay with you for 24 hours following discharge. - We also recommend that you do not drive, make important decision, drink alcoholic beverages, or take any drugs that were not prescribed by your health care provider for at least 24 hours after your discharge time. Follow any additional instructions given to you from your surgeon. Telephone instructions given to FEDERICO TORRES and asked if any additional questions and then verbalized understanding. Patient advised to call surgeon office or pre surgery nurse liaison [phone] if any additional questions.
[2021-11-14 06:11] VITALS: BP 147/79; PULSE 91; RESP 20; TEMP 36.5; O2SAT 98
[2021-11-14] MEDS: ACETAMINOPHEN 500 MG TABLET 1000 MG PO (06:34)
[2021-11-14] MEDS: LACTATED RINGERS 1,000 ML 30 ML IV CONT (06:40)
--- NOTE | 2021-11-14 06:57 | WPDANESEPPF ---
Anes - Initial Pre Proc Eval Procedure: Operation Date: 11/14/21 07:30 Proposed Procedures p Hysteroscopy, Dilation and Curettage - Ketty Hinds MD Date/Time: 11/14/21 06:57 Surgeon: Ketty Hinds MD Pre Op Diagnosis: Thickened Endometrium Patient Data Age: 51 Gender: F Height: 1.7 m Weight: 116.9 kg Allergies Allergy/AdvReac Type Severity Reaction Status Date / Time shellfish derived Allergy Severe Swelling Verified 11/14/21 06:13 of Lip/Tongue/Throat aztreonam Allergy Intermediate RASH Verified 11/14/21 06:13 sulfamethoxazole Allergy Intermediate HIVES Verified 11/14/21 06:13 adhesive Allergy Unknown rash Verified 11/14/21 06:13 aspirin Allergy Unknown anaphylaxis Verified 11/14/21 06:13 ciprofloxacin Allergy Unknown Unknown Verified 11/14/21 06:13 ibuprofen Allergy Unknown Anaphylaxis Verified 11/14/21 06:13 latex Allergy Unknown Dyspnea Verified 11/14/21 06:13 nifedipine Allergy Unknown Urticaria Verified 11/14/21 06:13 NSAIDS (Non-Steroidal Allergy Unknown Anaphylactic Verified 11/14/21 06:13 Anti-Inflamma Shock sulfamethizole Allergy Unknown Urticaria Verified 11/14/21 06:13 terbinafine Allergy Unknown Urticaria Verified 11/14/21 06:13 trimethoprim Allergy Unknown Unknown Verified 11/14/21 06:13 vancomycin Allergy Unknown Rash Verified 11/14/21 06:13 Home Medications Medication Instructions Recorded Confirmed Type albuterol sulfate 2.5 mg INHALATION Q6H PRN 09/03/19 11/14/21 History amlodipine 10 mg PO DAILY 09/03/19 11/14/21 History epinephrine 0.3 mg SUBCUT DIRECTED PRN 09/03/19 11/08/21 History ergocalciferol (vitamin D2) 50,000 unit PO WEEKLY 09/03/19 11/14/21 History fluticasone propionate 50 mcg INTRANASAL DAILY 09/03/19 11/14/21 History furosemide 40 mg PO DAILY 09/03/19 11/14/21 History guaifenesin [Mucinex] 600 mg PO DAILY 09/03/19 11/08/21 History lamotrigine 200 mg PO BID 09/03/19 11/14/21 History omeprazole 40 mg PO BID 09/03/19 11/14/21 History ondansetron HCl 4 mg PO Q8H PRN 09/03/19 11/14/21 History rivaroxaban [Xarelto] 20 mg PO DAILY 09/03/19 11/14/21 History theophylline 300 mg PO BID 09/03/19 11/14/21 History tiotropium bromide [Spiriva with 18 mcg INHALATION DAILY 09/03/19 11/14/21 History HandiHaler] mometasone-formoterol HFA 200 2 puff INHALATION BID 11/03/19 11/14/21 History mcg-5 mcg/actuation aerosol inhaler fexofenadine 180 mg tablet 180 mg PO DAILY 11/04/20 11/14/21 History ramipril 5 mg capsule 5 mg PO BID 11/04/20 11/14/21 History cetirizine-pseudoephedrine 1 tablet PO DAILY 01/25/21 11/14/21 History diphenhydramine HCl [Allergy 25 mg PO HS 01/25/21 11/14/21 History (diphenhydramine)] fluticasone propionate [Flovent 1 puff INHALATION BID 01/25/21 11/14/21 History HFA] hydrocodone-acetaminophen 1 tablet PO Q4H PRN 01/25/21 11/14/21 History Patient hx anesthesia problems: post op nausea/vomiting Family hx anesthesia problems: none Results Review: All pre-operative results and documents have been reviewed as part of the pre-operative evaluation. [facility] Past Medical History Medical History Abnormal uterine bleeding Anxiety Arthritis Arthropathy of right knee Asthma Bronchitis Colitis Dx 03 September 2019 COPD (chronic obstructive pulmonary disease) Depression DVT (deep venous thrombosis) Emphysema of lung Fibromyalgia Foot fracture, left GERD (gastroesophageal reflux disease) GI bleed History of oxygen administration HLD (hyperlipidemia) HTN (hypertension) IgM deficiency Irritable bowel Ovarian cyst PCOS (polycystic ovarian syndrome) Pneumonia Pulmonary embolism Raynauds syndrome Sinus problem UTI (urinary tract infection) Surgical History Surgical History H/O dilation and curettage H/O sinus surgery History of endometrial ablation History of ventral hernia repair (12/28/20) Hx of appendectomy Hx of t
--- NOTE | 2021-11-14 06:59 | WPDHPUPDATE1 ---
History and Physical Update Update Date/Time: 11/14/21 06:59 History and Physical has been reviewed, including an updated exam of the patient. There are NO changes in the patient's condition. Risks, benefits, and alternatives have been discussed and questions answered. Patient agrees to proceed with procedure.
--- NOTE | 2021-11-14 06:59 | PM.HPGS ---
History of Present Illness History of Present Illness Consent: Risks, benefits, and alternatives have been discussed and questions answered. Patient agrees to proceed with procedure. Chief complaint: Thickened Endometrium Narrative: Tracey Lambert is a 51 year old female with thickened endometrium found on u/s. Patient without vaginal bleeding. History of endometrial ablation. Patient has taken cytotec for last 5 nights. Discussed with patient risks of infection, bleeding, perforation, and inability to enter cavity. Possible pathology also discussed. Agrees to proceed. PENDING SALE TO [facility] Past Medical History Medical History (Updated 11/14/21 @ 07:06 by Ketty Hinds MD) Anxiety Arthritis Arthropathy of right knee Asthma Colitis Dx 03 September 2019 Common variable immunodeficiency COPD (chronic obstructive pulmonary disease) Depression DVT (deep venous thrombosis) Emphysema of lung Fibromyalgia Foot fracture, left GERD (gastroesophageal reflux disease) GI bleed HLD (hyperlipidemia) HTN (hypertension) IgM deficiency Irritable bowel PCOS (polycystic ovarian syndrome) Pulmonary embolism Raynauds syndrome Surgical History Surgical History (Updated 11/14/21 @ 07:05 by Ketty Hinds MD) H/O dilation and curettage H/O laminectomy H/O sinus surgery History of endometrial ablation History of knee surgery x 2 right x 1 left History of ventral hernia repair (12/28/20) Hx of appendectomy Hx of tonsillectomy S/P laparoscopic-assisted sigmoidectomy (~03/2020) Performed due to: Stricture resulting in right ventral hernia Family History Family History Father Hypertension Diabetes mellitus Mother Hypertension Acute myocardial infarction Heart disease Rheumatoid arthritis Sibling Hypertension Other Family history of gout Family history of obesity Family history unknown Social History Social History Smoking status: Never smoker Alcohol intake: current Drinks per week: 1 Alcohol use details: A FEW/MONTH Substance use: never Substance use type: does not use Living arrangements: with family Gender identity (if verbalized by the patient): Female Spiritual care concerns: No Meds Home Medications and Allergies Home Medications Medication Instructions Recorded Confirmed Type albuterol sulfate 2.5 mg INHALATION Q6H PRN 09/03/19 11/14/21 History amlodipine 10 mg PO DAILY 09/03/19 11/14/21 History epinephrine 0.3 mg SUBCUT DIRECTED PRN 09/03/19 11/08/21 History ergocalciferol (vitamin D2) 50,000 unit PO WEEKLY 09/03/19 11/14/21 History fluticasone propionate 50 mcg INTRANASAL DAILY 09/03/19 11/14/21 History furosemide 40 mg PO DAILY 09/03/19 11/14/21 History guaifenesin [Mucinex] 600 mg PO DAILY 09/03/19 11/08/21 History lamotrigine 200 mg PO BID 09/03/19 11/14/21 History omeprazole 40 mg PO BID 09/03/19 11/14/21 History ondansetron HCl 4 mg PO Q8H PRN 09/03/19 11/14/21 History rivaroxaban [Xarelto] 20 mg PO DAILY 09/03/19 11/14/21 History theophylline 300 mg PO BID 09/03/19 11/14/21 History tiotropium bromide [Spiriva with 18 mcg INHALATION DAILY 09/03/19 11/14/21 History HandiHaler] mometasone-formoterol HFA 200 2 puff INHALATION BID 11/03/19 11/14/21 History mcg-5 mcg/actuation aerosol inhaler fexofenadine 180 mg tablet 180 mg PO DAILY 11/04/20 11/14/21 History ramipril 5 mg capsule 5 mg PO BID 11/04/20 11/14/21 History cetirizine-pseudoephedrine 1 tablet PO DAILY 01/25/21 11/14/21 History diphenhydramine HCl [Allergy 25 mg PO HS 01/25/21 11/14/21 History (diphenhydramine)] fluticasone propionate [Flovent 1 puff INHALATION BID 01/25/21 11/14/21 History HFA] hydrocodone-acetaminophen 1 tablet PO Q4H PRN 01/25/21 11/14/21 History Allergies Allergy/AdvReac Type Severity Reaction Status Date / Time shellfish derived Allergy Severe Swelling Veri
[2021-11-14] MEDS: FAMOTIDINE 20 MG/2 ML VIAL IV PUSH (07:09)
[2021-11-14] MEDS: ONDANSETRON INJ 4 MG/2 ML VIAL IV PUSH (07:11)
[2021-11-14] MEDS: MIDAZOLAM HCL (*CRX) 2 MG/2 ML VIAL IV PUSH (07:13)
[2021-11-14] MEDS: LIDOCAINE HCL 1% LOCAL INJ 2 ML AMPUL 30 ML INFILTRATE (07:40)
--- NOTE | 2021-11-14 07:51 | P.OP_ITS ---
Procedure Note - Detailed Date of Procedure 11/14/21 Pre-op Diagnosis Thickened Endometrium Post-op Diagnosis same Procedure Performed D&C hysteroscopy Surgeon Ketty Hinds MD Anesthesia MAC and local Findings Stenotic os with uterus measuring 5.5cm. Endometrium scarred with no thickened areas visible. Description of Procedure The patient is taken the operating room and placed under anesthesia in the dorsal lithotomy position. She was prepped and draped in the usual sterile fashion. [place] speculum was placed in the vagina and the cervix was grasped on the anterior lip with a tenaculum. The uterus is attempted to be sounded and the internal os is stenotic. The os Finders are used and able to enter the endometrium. The uterus is sounded to 5.5cm. The cervix is serially dilated with Hegar to an 8. The tenaculum pulled off the anterior lip x3 during this process. It was finally grasped at 1 to 3 o'clock and held. The diagnostic hysteroscope was placed with no abnormalities noted. Small sharp curette is used to curette the endometrium until a good uterine cry was noted in all areas. Minimal materials obtained consistent with the scarred atrophic appearance. All instruments are removed. Patient was awakened from anesthesia and taken to recovery in stable condition. Estimated Blood Loss 5 Drains No Packing No Pathology yes (Endometrial curettings) Complications No immediate complications Condition stable Disposition PACU
[2021-11-14 07:55] VITALS: BP 139/83; PULSE 95; RESP 18; O2SAT 97
[2021-11-14 08:20] VITALS: BP 131/80; PULSE 86; RESP 18; O2SAT 97
[2021-11-14] MEDS: oxyCODONE HCL (*CRX) 5 MG TAB IR PO (08:20)
[2021-11-14 08:45] VITALS: BP 125/72; PULSE 80; RESP 18
== END 2021-11-14 08:55 | disposition home or self-care (01) ==
PROVIDERS: PCP Family Medicine; Visit Provider Obstetrics & Gynecology Gynecology
PROC: 0U5B8ZZ Destruction of Endometrium, Via Natural or Artificial Opening Endoscopic (ICD-10-PCS; CPT 58563; principal; 2021-11-14 07:30)
DX: R93.89 Abnormal findings on diagnostic imaging of other specified body structures (principal); N88.2 Stricture and stenosis of cervix uteri; J44.9 Chronic obstructive pulmonary disease, unspecified; M19.90 Unspecified osteoarthritis, unspecified site; J45.909 Unspecified asthma, uncomplicated; K52.9 Noninfective gastroenteritis and colitis, unspecified; F41.8 Other specified anxiety disorders; Z86.718 Personal history of other venous thrombosis and embolism; K21.9 Gastro-esophageal reflux disease without esophagitis; E78.5 Hyperlipidemia, unspecified; I10 Essential (primary) hypertension; E28.2 Polycystic ovarian syndrome; I73.00 Raynaud's syndrome without gangrene; K92.2 Gastrointestinal hemorrhage, unspecified; Z79.01 Long term (current) use of anticoagulants; Z79.51 Long term (current) use of inhaled steroids; Z79.82 Long term (current) use of aspirin; E66.9 Obesity, unspecified; Z68.41 Body mass index [BMI] 40.0-44.9, adult
CPT/HCPCS: 58558; 88305; A9270; J2250; J2405; J2704; J3010; J7030; J7120

== ENCOUNTER 2022-02-21 10:43 | Emergency (ER) | payer MEDICARE, OTHER, SELFPAY ==
--- NOTE | ~2022-02-21 | CT_ITS ---
EXAMINATION: CT abdomen pelvis w con DATE: 02/21/2022 12:28 INDICATION: Right lower quadrant abdominal pain, fever. TECHNIQUE: Computed tomography (CT) of the abdomen and pelvis was performed with 100 CC Omnipaque 350 intravenous contrast. Automated exposure control and iterative reconstruction technique were employe d. Exam dose: 1377.22 mGy-cm total exam DLP. COMPARISON: 10/03/2021 CT abdomen pelvis FINDINGS: There is mild discoid atelectasis or scarring of the middle lobe and lingula and to a minim al extent the dependent posteromedial basilar left lower lobe. Normal heart size. No pericardial or pleural effusion. Status post cholecystectomy. No hepatic space-occupying mass lesion. No bile duct or pancreatic duct dilatation. No pancreatic mass lesion or calcification. Normal splenic size. 7.7 mm splenic cyst. Normal morphology of the adrenal glands. No renal mass lesion or urinary tract calculus or hydroureteronephrosis. The urinary bladder is unrem arkable. The uterus and adnexal areas are unremarkable. Normal caliber of the abdominal aorta. No intraperitoneal or retroperitoneal or pelvic mass lesion or adenopathy or ascites. There is a suture line in the distal sigmoid colon. Right lateral lower quadrant ventral abdominal wall hernia containing nonobstructed non strangulated small bowel. The mouth of the hernia is up to approximately 3.8 cm maximal width. Hernia sac measures up to 5.3 cm depth and 8 cm width. Status post ventral abdominal wall hernia repair There is degenerative change at the apophyseal joints with associated grade 1 anterolisthesis at L4-5 . Severe degenerative disc disease at L5-S1. IMPRESSION: Right lower quadrant anterolateral abdominal wall hernia containing nonobstructed small bowel Status post ventral abdominal wall hernia repair Status post cholecystectomy Status post sigmoid colon resection Reviewed, dictated and finalized at [facility]. Reviewed, dictated and finalized at location [facility]. IMPRESSION: Right lower quadrant anterolateral abdominal wall hernia containin g nonobstructed small bowel Status post ventral abdominal wall hernia repair Status post cholecystectomy Status post sigmoid colon resection
--- NOTE | ~2022-02-21 | XR_ITS ---
EXAMINATION: XR chest 2V DATE: 02/21/2022 11:20 INDICATION: Wheezing TECHNIQUE: PA and lateral views of the chest were obtained. COMPARISON: Chest radiograph dated 01/25/[address] dated 05/27/2019 FINDINGS: Dual-lumen right internal jugular central venous port catheter with distal tip at the caudal superior vena cava. Persistent chronic bandlike opacities at the lingula and right middle lobe consistent wit h discoid atelectasis/scarring. No new airspace opacities, pulmonary edema, pleural effusion or pneum othorax. The cardiomediastinal silhouette is normal. Mild thoracic spondylosis with chronic mild ante rior wedging at T6. Cholecystectomy clips in the right upper quadrant. IMPRESSION: 1. Chronic discoid atelectasis/scarring at the lingula and right middle lobe. No acute cardiopulmonar y disease. Reviewed, dictated and finalized at [facility]. IMPRESSION: 1. Chronic discoid atelectasis/scarring at the lingula and right middle lobe. N o acute cardiopulmonary disease.
[2022-02-21 10:45] VITALS: BP 156/95; PULSE 110; RESP 24; TEMP 36.2; O2SAT 94
--- NOTE | 2022-02-21 10:55 | ECG_ITS ---
Measurements Intervals [place] Rate: 98 P: 37 MD: 151 QRS: -5 QRSD: 106 T: 16 QT: 354 QTc: 453 Interpretive Statements SINUS RHYTHM NO PREVIOUS ECG AVAILABLE FOR COMPARISON Electronically Signed On 02-22-2022 13:30:32 CDT by Daisy Fabian M.D.
[2022-02-21 11:04] VITALS: RESP 24; O2SAT 96
[2022-02-21 11:10] LABS: Basophils Absolute Auto 0.1 K/mm3 (0.0-0.1); Eosinophils Absolute Auto 0.9 K/mm3 (0-0.3); Eosinophils Percent Auto 10.1 % (0-4.4); Hematocrit 42.6 % (37.0-47.0); Hemoglobin 13.7 g/dL (12.0-15.0); Immature Granulocyte Absolute 0.02 K/mm3 (0.00-0.031); Immature Granulocyte Percent A 0.2 % (0-0.5); Lymphocytes Absolute Auto 3.18 K/mm3 (0.9-3.2); Lymphocytes Percent Auto 34.9 % (18.3-44.2); Mean Corpuscular HGB Conc 32.2 g/dl (32-36); Mean Corpuscular Hemoglobin 31.1 pg (26-34); Mean Corpuscular Volume 96.6 fl (80-100); Mean Platelet Volume 9.4 fl (7.4-10.4); Monocytes Absolute Auto 0.7 K/mm3 (0.1-0.6); Monocytes Percent Auto 7.1 % (2.6-8.5); Neutrophils Absolute Auto 4.3 K/mm3 (1.3-6.7); Neutrophils Percent Auto 46.7 % (45.5-73.1); Platelet Count Result 398 k/mm3 (150-375); Red Blood Count 4.41 M/mm3 (4.2-5.4); Red Cell Distribution Width 13.9 % (11.5-14.5); White Blood Count 9.1 K/mm3 (4.5-10.0)
--- NOTE | 2022-02-21 11:13 | ED.FEVER ---
HPI - Fever General Chief Complaint: Fever Stated Complaint: i may have pneumonia - diarrhea Time Seen by Provider: 02/21/22 10:59 Source: patient Mode of arrival: ambulatory Limitations: no limitations History of Present Illness HPI Narrative: Patient is a 51-year-old female who presents the ED with report of cough and shortness of breath. Patient states she has felt unwell overall for the past 1 week. She has a history of COPD and asthma and reports having chronic shortness of breath but it has worsened over the last few days. She has been using her inhalers at home. She developed a cough around 4 days ago which has been productive of green-yellow, brown sputum. She also reports having a fever up to 101F at home, right lower quadrant abdominal pain, nausea, diarrhea, but she denies any chest pain, vomiting, rectal bleeding, urinary symptoms. Patient took Tylenol around 9 am this morning. Related Data Home Medications Medication Instructions Recorded Confirmed albuterol sulfate 2.5 mg INHALATION Q6H PRN 09/03/19 11/14/21 amlodipine 10 mg PO DAILY 09/03/19 11/14/21 epinephrine 0.3 mg SUBCUT DIRECTED PRN 09/03/19 11/08/21 ergocalciferol (vitamin D2) 50,000 unit PO WEEKLY 09/03/19 11/14/21 fluticasone propionate 50 mcg INTRANASAL DAILY 09/03/19 11/14/21 furosemide 40 mg PO DAILY 09/03/19 11/14/21 guaifenesin [Mucinex] 600 mg PO DAILY 09/03/19 11/08/21 lamotrigine 200 mg PO BID 09/03/19 11/14/21 omeprazole 40 mg PO BID 09/03/19 11/14/21 ondansetron HCl 4 mg PO Q8H PRN 09/03/19 11/14/21 rivaroxaban [Xarelto] 20 mg PO DAILY 09/03/19 11/14/21 theophylline 300 mg PO BID 09/03/19 11/14/21 tiotropium bromide [Spiriva with 18 mcg INHALATION DAILY 09/03/19 11/14/21 HandiHaler] mometasone-formoterol HFA 200 2 puff INHALATION BID 11/03/19 11/14/21 mcg-5 mcg/actuation aerosol inhaler fexofenadine 180 mg tablet 180 mg PO DAILY 11/04/20 11/14/21 ramipril 5 mg capsule 5 mg PO BID 11/04/20 11/14/21 cetirizine-pseudoephedrine 1 tablet PO DAILY 01/25/21 11/14/21 diphenhydramine HCl [Allergy 25 mg PO HS 01/25/21 11/14/21 (diphenhydramine)] fluticasone propionate [Flovent 1 puff INHALATION BID 01/25/21 11/14/21 HFA] hydrocodone-acetaminophen 1 tablet PO Q4H PRN 01/25/21 11/14/21 Allergies Allergy/AdvReac Type Severity Reaction Status Date / Time shellfish derived Allergy Severe Swelling Verified 02/21/22 11:05 of Lip/Tongue/Throat aztreonam Allergy Intermediate RASH Verified 02/21/22 11:05 sulfamethoxazole Allergy Intermediate HIVES Verified 02/21/22 11:05 adhesive Allergy Unknown rash Verified 02/21/22 11:05 aspirin Allergy Unknown anaphylaxis Verified 02/21/22 11:05 ciprofloxacin Allergy Unknown Unknown Verified 02/21/22 11:05 ibuprofen Allergy Unknown Anaphylaxis Verified 02/21/22 11:05 latex Allergy Unknown Dyspnea Verified 02/21/22 11:05 nifedipine Allergy Unknown Urticaria Verified 02/21/22 11:05 NSAIDS (Non-Steroidal Allergy Unknown Anaphylactic Verified 02/21/22 11:05 Anti-Inflamma Shock sulfamethizole Allergy Unknown Urticaria Verified 02/21/22 11:05 terbinafine Allergy Unknown Urticaria Verified 02/21/22 11:05 trimethoprim Allergy Unknown Unknown Verified 02/21/22 11:05 vancomycin Allergy Unknown Rash Verified 02/21/22 11:05 Review of Systems Review of Systems: CONSTITUTIONAL: Reports fever, chills. CARDIOVASCULAR: Denies chest pain. RESPIRATORY: Reports productive cough or dyspnea. GASTROINTESTINAL: Reports RLQ ABD pain, nausea, diarrhea. Denies vomiting or rectal bleeding. GENITOURINARY: Denies dysuria or hematuria. MUSCULOSKELETAL: Denies back pain, joint pain, or myalgia. NEUROLOGIC: Denies headache, numbness, or weakness. All systems reviewed & are unremarkable except as noted in HPI and below PMFSH Past Medical History Medical History Anxiety Arthritis Arthropathy of right knee Asthma Colitis Dx 03 September 2019 Common variable immunodeficiency
[2022-02-21 11:20] LABS: Alanine Aminotransferase 19 U/L (4-35); Albumin Level 4.8 g/dL (3.5-5.1); Alkaline Phosphatase 75 U/L (38-126); Anion Gap 11 mmol/L (8-16); Aspartate Amino Transferase 29 U/L (14-36); Bilirubin,Total 0.5 mg/dL (0.2-1.3); Blood Urea Nitrogen 15 mg/dL (7-17); Calcium 9.1 mg/dL (8.4-10.2); Carbon Dioxide 23 mmol/L (22-30); Chloride 104 mmol/L (98-107); Estimated CRCL calculation 77 ml/min; Estimated Glomerular Filt Rate > 60; Glucose 101 mg/dL (65-110); Potassium 4.3 mmol/L (3.4-5.0); Sodium 138 mmol/L (137-145)
[2022-02-21] MEDS: ONDANSETRON INJ 4 MG/2 ML VIAL IV PUSH (11:28)
[2022-02-21 11:50] LABS: D Dimer 0.31 ug/mL (<0.48)
[2022-02-21 11:52] LABS: Influenza A QL RT-PCR Negative (Negative); Influenza B QL RT-PCR Negative (Negative); SARS-CoV-2 RNA PCR Negative
[2022-02-21 12:04] LABS: Troponin I < 0.012 ng/mL (0.000-0.034)
[2022-02-21 14:15] VITALS: BP 154/93; PULSE 108; RESP 20; O2SAT 97
== END 2022-02-21 14:17 | disposition home or self-care (01) ==
PROVIDERS: Physician Assistant; Emergency Provider Emergency Medicine; PCP Family Medicine
DX: K43.9 Ventral hernia without obstruction or gangrene (principal); J06.9 Acute upper respiratory infection, unspecified; J44.9 Chronic obstructive pulmonary disease, unspecified; F32.A Depression, unspecified; M19.90 Unspecified osteoarthritis, unspecified site; M79.7 Fibromyalgia; E78.5 Hyperlipidemia, unspecified; I10 Essential (primary) hypertension; E28.2 Polycystic ovarian syndrome; Z20.822 Contact with and (suspected) exposure to COVID-19; Z86.718 Personal history of other venous thrombosis and embolism; Z79.899 Other long term (current) drug therapy; Z91.013 Allergy to seafood; Z88.2 Allergy status to sulfonamides; Z88.8 Allergy status to other drugs, medicaments and biological substances; Z91.040 Latex allergy status; Z91.048 Other nonmedicinal substance allergy status; Z90.89 Acquired absence of other organs; Z86.711 Personal history of pulmonary embolism
CPT/HCPCS: 36415; 71046; 74177; 80053; 84484; 85025; 85380; 87502; 93005; 96374; 99284; C9803; J2405; Q9967; U0003; U0005

== ENCOUNTER → 2022-05-10 09:58 | Outpatient (CLI) | payer MEDICARE, OTHER, SELFPAY ==
--- NOTE | ~2022-05-10 | MR_ITS ---
EXAMINATION: MR knee RT wo con DATE: 05/10/2022 10:57 INDICATION: Chronic right knee pain TECHNIQUE: Magnetic resonance imaging (MRI) of the right knee was performed without intravenous contr ast. Sequences included coronal PD-weighted FSE, coronal PD-weighted FS FSE, sagittal T2-weighted FS E, sagittal PD-weighted FS FSE and axial PD weighted fat saturated FSE. COMPARISON: Right knee radiographs dated 07/02/2018 FINDINGS: Medial compartment: Longitudinal horizontal tear extending to the inferior articular surface at the posterior aspect of t he medial meniscal body and medial side of the posterior horn. Articular cartilage is normal. Lateral compartment: Lateral meniscus is normal. Articular cartilage is normal. Patellofemoral compartment: Small region of partial-thickness chondral fissuring involving less than 50% the cartilage thickness along the lateral patellar facet. Trochlear cartilage is normal. Ligaments and tendons: Anterior and posterior cruciate ligaments are normal. The medial collateral ligament and fibular iza ateral ligament complex are normal. The extensor mechanism is normal. The visualized medial and later al hamstring tendons as well as the iliotibial band are normal. Fluid: Physiologic amount of fluid in the joint space. No loose osteochondral bodies identified. Osseous/other: Small low signal intensity bone island at the medial femoral condyle. Bone marrow signal is otherwise normal. No fracture or pathologic marrow replacing process. IMPRESSION: 1. Medial meniscal tear. 2. Small region of partial-thickness chondral fissuring at the lateral patellar facet. Reviewed, dictated and finalized at [facility].
== END ==
PROVIDERS: PCP Student in an Organized Health Care Education/Training Program; Visit Provider Student in an Organized Health Care Education/Training Program
DX: S83.241A Other tear of medial meniscus, current injury, right knee, initial encounter (principal)
CPT/HCPCS: 73721

== ENCOUNTER 2022-09-29 09:57 | Outpatient (CLI) | payer MEDICARE, OTHER, SELFPAY ==
--- NOTE | ~2022-09-29 | CT_ITS ---
EXAMINATION: CT abdomen pelvis w con DATE: 09/29/2022 10:29 INDICATION: Lower abdominal pain TECHNIQUE: Computed tomography (CT) of the abdomen and pelvis was performed with 100 CC Omnipaque 350 intravenous contrast. Automated exposure control and iterative reconstruction technique were employe d. Exam dose: 1109.32 mGy-cm total exam DLP. COMPARISON: 02/21/2022 CT abdomen pelvis FINDINGS: Chronic bibasilar discoid scarring. Normal heart size. No pericardial or pleural effusion. Status post cholecystectomy. No hepatic, splenic, pancreatic, and adrenal or renal space-occupying ma ss lesion. No bile duct or pancreatic duct dilatation. No urinary tract calculus or hydroureteronephr osis. The urinary bladder is unremarkable. Uterus and adnexal areas are unremarkable. There is a suture line of the distal sigmoid colon. No bowel obstruction is detected. Normal caliber of the abdominal aorta. No intraperitoneal or retroperitoneal or pelvic mass lesion or adenopathy or ascites. Status post ventral supraumbilical and infraumbilical abdominal wall repair. Again noted is an approximately 4 cm wide mouth prominent right lower anterolateral wall hernia conta ining fat and nonobstructed nonstrangulated small bowel. There is degenerative change at the apophyseal joints with associated grade 1 anterolisthesis at L4-5 . There is moderately severe degenerative disc disease at L5-S1. Mild to moderate degenerative disc disease at the remaining lumbar interspaces with associated minima l retrolisthesis L2-3 and L3-4. Mild degenerative change at the lower thoracic spine. No suspicious osteolytic or osteoblastic lesions are noted. IMPRESSION: Chronic 4 cm wide mouth right lower quadrant anterolateral wall ventral hernia containin g nonobstructed none strangulate and small bowel Status post supraumbilical and infraumbilical ventral abdominal wall hernia repair Status post cholecystectomy Status post sigmoid colon resection Reviewed, dictated and finalized at [facility]. Reviewed, dictated and finalized at [facility]. 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
[2022-09-29 10:21] LABS: Estimated Glomerular Filt Rate > 60
== END 2022-09-29 09:58 ==
LOC: MICIMG 09:58
PROVIDERS: PCP Student in an Organized Health Care Education/Training Program; Visit Provider Student in an Organized Health Care Education/Training Program
DX: K43.9 Ventral hernia without obstruction or gangrene (principal); R10.30 Lower abdominal pain, unspecified; R19.5 Other fecal abnormalities
CPT/HCPCS: 74177; Q9967

== ENCOUNTER → 2022-10-09 12:42 | Outpatient (CLI) | payer MEDICARE, OTHER, SELFPAY ==
--- NOTE | ~2022-10-09 | US_ITS ---
Ultrasound of the neck CLINICAL HISTORY: Cervical lymphadenopathy TECHNIQUE: Real-time sonographic imaging of the neck was performed bilaterally. FINDINGS: There are prominent bilateral cervical lymph nodes, many which demonstrate mild cortical th ickening, but most which also demonstrate a fatty hilum. No fluid collection identified. Largest righ t-sided lymph node measures 2.7 x 0.7 cm in size. Largest left-sided lymph node measures 2.1 x 1.2 x 0.9 cm. IMPRESSION: Mild bilateral cervical lymphadenopathy, as detailed above, nonspecific. Diagnostic considerations in clude reactive/inflammatory lymph nodes versus the possibility of lymphoma or other metastatic diseas e. Consider cross-sectional imaging of the neck for further evaluation, or PET/CT to evaluate for hyp ermetabolic activity. Reviewed, dictated and finalized at location [] CH ASSOCIATE IMPRESSION: Mild bilateral cervical lymphadenopathy, as detailed above, nonspecific. Diagno stic considerations include reactive/inflammatory lymph nodes versus the possib ility of lymphoma or other metastatic disease. Consider cross-sectional imaging of the neck for further evaluation, or PET/CT to evaluate for hypermetabolic a ctivity.
== END ==
PROVIDERS: PCP Internal Medicine Endocrinology, Diabetes & Metabolism; Visit Provider Internal Medicine Endocrinology, Diabetes & Metabolism
DX: R59.0 Localized enlarged lymph nodes (principal)
CPT/HCPCS: 76536

== ENCOUNTER → 2022-11-03 08:00 | Outpatient (CLI) | payer MEDICARE, OTHER, SELFPAY ==
--- NOTE | ~2022-11-03 | CT_ITS ---
EXAMINATION: CT soft tissue neck w con DATE: 11/03/2022 08:59 INDICATION: Localized enlarged lymph nodes in the neck. TECHNIQUE: Computed tomography (CT) of the neck was performed with 75 mL Omnipaque-350 intravenous co ntrast. Automated exposure control and iterative reconstruction technique were employed. The dose-mara gth product was 360.48 mGy-cm. COMPARISON: Neck CT 12/02/2012, ultrasound 10/09/2022, chest CT 05/27/2019 FINDINGS: The visualized portions of the lung apices demonstrate mild bronchiectasis in right upper l obe with nodules measuring up to 7 mm. There is mucosal thickening in the paranasal sinuses with thic kening and sclerosis of the sinus plaza and surgical changes, consistent with chronic sinusitis. Ther e are areas of bone dehiscence at the anterior skull base adjacent to the sinuses. The pharynx and la rynx are normal. There is a 15 x 10 mm right submandibular node. There is a 12 x 13 mm high left inte rnal jugular chain lymph node. There is a right internal jugular port with tip not included. There is plaque in proximal left internal carotid artery with 0% stenosis relative to normal distal artery tiana men diameter. There is severe cervical spondylosis. IMPRESSION: 1. Mild bilateral cervical lymphadenopathy, likely reactive. 2. Chronic sinusitis. 3. Pulmonary nodules measuring up to 7 mm, worsened from 05/27/19, probably benign. Noncontrast low-do se chest CT is recommended in 6 months. Reviewed, dictated and finalized at location [facility]. 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 Mild bilateral cervical lymphadenopathy, likely reactive. 2. Chronic sinusitis. 3. Pulmonary nodules measuring up to 7 mm, worsened from 05/27/19, probably radha gn. Noncontrast low-dose chest CT is recommended in 6 months.
[2022-11-03 08:49] LABS: Estimated Glomerular Filt Rate 58
== END ==
PROVIDERS: PCP Student in an Organized Health Care Education/Training Program; Visit Provider Internal Medicine Endocrinology, Diabetes & Metabolism
DX: R59.0 Localized enlarged lymph nodes (principal); J32.9 Chronic sinusitis, unspecified; R91.8 Other nonspecific abnormal finding of lung field
CPT/HCPCS: 70491; Q9967

== ENCOUNTER 2022-12-06 08:13 | Emergency (ER) | payer MEDICARE, OTHER, SELFPAY ==
--- NOTE | ~2022-12-06 | CT_ITS ---
EXAMINATION: CT abdomen pelvis wo con DATE: 12/06/2022 08:59 INDICATION: Right flank pain. Generalized abdominal pain. TECHNIQUE: Computed tomography (CT) of the abdomen and pelvis was performed without intravenous contr ast. Automated exposure control and iterative reconstruction technique were employed. The dose-length product was 749.53 mGy-cm. COMPARISON: CT abdomen and pelvis 09/29/2022, 10/03/21 FINDINGS: The visualized portions of the lung bases demonstrate mild atelectasis. There is mucous plu gging in the lower lobes. There is a 12 mm nodule in left lower lobe and measured 7 mm on 10/03/2021. No pleural effusion. The heart size is normal. No pericardial effusion. The liver and spleen are norm al. There are changes of cholecystectomy. The pancreas, adrenal glands, and kidneys are normal. There is no urolithiasis. There are changes of ventral hernia repair. There is a right-sided ventral herni a containing nonobstructed small bowel. There is an anastomosis in the sigmoid colon. The appendix is not visualized. There are no pathologically enlarged lymph nodes. There is no free intraperitoneal f luid. There is severe lower lumbar spondylosis. IMPRESSION: 1. Right-sided ventral hernia containing nonobstructed small bowel. I called this result to Dr. Patton on at 9:01 AM. 2. No urolithiasis. 3. 12 mm pulmonary nodule, which measured 7 mm on 10/03/2021. This finding is indeterminate for malign deann. Consider PET/CT. I called this result to Dr. Guerrier at 10:51 AM. 4. Mucous plugging in the lower lobes. Reviewed, dictated and finalized at location [facility]. 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 Right-sided ventral hernia containing nonobstructed small bowel. I called th is result to Dr. Guerrier at 9:01 AM. 2. No urolithiasis. 3. 12 mm pulmonary nodule, which measured 7 mm on 10/03/2021. This finding is in determinate for malignancy. Consider PET/CT. I called this result to Dr. Aly alvarez at 10:51 AM. 4. Mucous plugging in the lower lobes.
[2022-12-06 08:20] VITALS: BP 158/97; PULSE 104; RESP 18; TEMP 36.8; O2SAT 97
--- NOTE | 2022-12-06 08:26 | ED.ABDPAIN ---
HPI - Abdominal Pain General Chief Complaint: Abdominal Pain Stated Complaint: right flank pain, blood in urine Time Seen by Provider: 12/06/22 08:16 Source: RN notes reviewed History of Present Illness HPI narrative: Patient presents emergency room from home for hematuria. Patient states that she has a long history of kidney stones states that she has followed with urology at our facility and recently passed some kidney stones last week states that her symptoms have been resolving but then she began to note hematuria again yesterday and today states is associated with pain in the right flank that radiates around to the right side of the abdomen described as aching and feels like previous kidney stones. Patient states she did take a Vicodin this morning for the pain with minimal relief. She denies any fevers or chills chest pain shortness of breath nausea vomiting diarrhea or any other symptoms Related Data Home Medications Medication Instructions Recorded Confirmed albuterol sulfate 2.5 mg/3 mL 2.5 mg inhalation Q6H PRN Dyspnea 09/03/19 11/14/21 (0.083 %) solution for nebulization amlodipine 10 mg tablet 10 mg PO DAILY 09/03/19 11/14/21 epinephrine 0.3 mg/0.3 mL 0.3 mg subcut DIRECTED PRN 09/03/19 11/08/21 injection, auto-injector Anaphylaxis ergocalciferol (vitamin D2) 1,250 50,000 unit PO WEEKLY 09/03/19 11/14/21 mcg (50,000 unit) capsule fluticasone propionate 50 50 mcg intranasal DAILY 09/03/19 11/14/21 mcg/actuation nasal spray,suspension furosemide 40 mg tablet 40 mg PO DAILY 09/03/19 11/14/21 guaifenesin 600 mg tablet, 600 mg PO DAILY 09/03/19 11/08/21 extended release 12 hr (Mucinex) lamotrigine 200 mg tablet 200 mg PO BID 09/03/19 11/14/21 omeprazole 20 mg capsule,delayed 40 mg PO BID 09/03/19 11/14/21 release ondansetron HCl 4 mg tablet 4 mg PO Q8H PRN Nausea And Vomiting 09/03/19 11/14/21 rivaroxaban 20 mg tablet (Xarelto) 20 mg PO DAILY 09/03/19 11/14/21 theophylline 300 mg 300 mg PO BID 09/03/19 11/14/21 tablet,extended release,12 hr tiotropium bromide 18 mcg capsule 18 mcg inhalation DAILY 09/03/19 11/14/21 with inhalation device (Spiriva with HandiHaler) mometasone-formoterol HFA 200 2 puff inhalation BID 11/03/19 11/14/21 mcg-5 mcg/actuation aerosol inhaler (Dulera) fexofenadine 180 mg tablet 180 mg PO DAILY 11/04/20 11/14/21 ramipril 5 mg capsule (Altace) 5 mg PO BID 11/04/20 11/14/21 cetirizine 5 mg-pseudoephedrine ER 1 tablet PO DAILY 01/25/21 11/14/21 120 mg tablet,extended release,12hr diphenhydramine HCl 25 mg capsule 25 mg PO HS 01/25/21 11/14/21 (Allergy (diphenhydramine)) fluticasone propionate 110 1 puff inhalation BID 01/25/21 11/14/21 mcg/actuation HFA aerosol inhaler (Flovent HFA) hydrocodone 5 mg-acetaminophen 325 1 tablet PO Q4H PRN Pain (Scale 01/25/21 11/14/21 mg tablet Score 4-6) Allergies Allergy/AdvReac Type Severity Reaction Status Date / Time shellfish derived Allergy Severe Swelling Verified 12/06/22 08:41 of Lip/Tongue/Throat aztreonam Allergy Intermediate RASH Verified 12/06/22 08:41 sulfamethoxazole Allergy Intermediate HIVES Verified 12/06/22 08:41 adhesive Allergy Unknown rash Verified 12/06/22 08:41 aspirin Allergy Unknown anaphylaxis Verified 12/06/22 08:41 ciprofloxacin Allergy Unknown Unknown Verified 12/06/22 08:41 ibuprofen Allergy Unknown Anaphylaxis Verified 12/06/22 08:41 latex Allergy Unknown Dyspnea Verified 12/06/22 08:41 nifedipine Allergy Unknown Urticaria Verified 12/06/22 08:41 NSAIDS (Non-Steroidal Allergy Unknown Anaphylactic Verified 12/06/22 08:41 Anti-Inflamma Shock sulfamethizole Allergy Unknown Urticaria Verified 02/21/22 11:05 terbinafine Allergy Unknown Urticaria Verified 02/21/22 11:05 trimethoprim Allergy Unknown Unknown Verified 02/21/22 11:05 vancomycin Allergy Unknown Rash Verified 02/21/22 11:05 Review of Systems Review of Systems: Gen.: Denies fevers or chills ENT: Denies congestion Respi
[2022-12-06 09:05] LABS: Basophils Absolute Auto 0.1 K/mm3 (0.0-0.1); Basophils Percent Auto 0.8 % (0.2-1.2); Eosinophils Absolute Auto 0.8 K/mm3 (0-0.3); Hematocrit 41.6 % (37.0-47.0); Hemoglobin 13.6 g/dL (12.0-15.0); Immature Granulocyte Absolute 0.03 K/mm3 (0.00-0.031); Immature Granulocyte Percent A 0.3 % (0-0.5); Lymphocytes Absolute Auto 1.83 K/mm3 (0.9-3.2); Lymphocytes Percent Auto 16.2 % (18.3-44.2); Mean Corpuscular HGB Conc 32.7 g/dl (32-36); Mean Corpuscular Hemoglobin 31.2 pg (26-34); Mean Corpuscular Volume 95.4 fl (80-100); Mean Platelet Volume 9.3 fl (7.4-10.4); Monocytes Absolute Auto 0.8 K/mm3 (0.1-0.6); Neutrophils Absolute Auto 7.8 K/mm3 (1.3-6.7); Neutrophils Percent Auto 68.7 % (45.5-73.1); Platelet Count Result 426 k/mm3 (150-375); Red Blood Count 4.36 M/mm3 (4.2-5.4); Red Cell Distribution Width 14.5 % (11.5-14.5); White Blood Count 11.3 K/mm3 (4.5-10.0)
[2022-12-06] MEDS: MORPHINE SULFATE (*CRX) 4 MG/ML INJ IV PUSH (09:10)
[2022-12-06] MEDS: SODIUM CHLORIDE 0.9% IV 1,000 ML 999 ML IV CONT (09:10)
[2022-12-06] MEDS: ONDANSETRON INJ 4 MG/2 ML VIAL (09:19)
[2022-12-06 09:21] LABS: Alanine Aminotransferase 21 U/L (6-35); Albumin Level 4.7 g/dL (3.5-5.1); Alkaline Phosphatase 84 U/L (38-126); Anion Gap 9 mmol/L (8-16); Aspartate Amino Transferase 35 U/L (14-36); Bilirubin,Total 0.8 mg/dL (0.2-1.3); Blood Urea Nitrogen 15 mg/dL (7-17); Calcium 9.3 mg/dL (8.4-10.2); Carbon Dioxide 28 mmol/L (22-30); Chloride 102 mmol/L (98-107); Estimated Glomerular Filt Rate > 60; Glucose 103 mg/dL (65-110); Lipase 111 U/L (23-300); Potassium 3.9 mmol/L (3.4-5.0); Sodium 139 mmol/L (137-145)
[2022-12-06 10:05] LABS: Appearance Urine Clear (Clear); Bilirubin Urine Negative (Negative); Blood Urine 3+ (Negative); Color Urine Yellow (Yellow); Glucose Urine UA Negative (Negative); Ketones Urine Negative (Negative); Leukocyte Esterase Ur 2+ LEU/UL (Negative); Nitrate Urine Negative (Negative); Protein Urine 2+ mg/dL (Negative); Urobilinogen Urine 0.2 mg/dL (<2.0); pH Urine 6.5 (5.0-9.0)
[2022-12-06 10:08] LABS: Bacteria Urine Trace /hpf; Mucus Urine Rare /lpf; RBC Urine 21-50 /hpf (0-2); WBC Urine >75 /hpf
[2022-12-06 10:11] LABS: Add Urine Microscopic? YES
== END 2022-12-06 12:16 | disposition home or self-care (01) ==
PROVIDERS: Emergency Provider Emergency Medicine; PCP Student in an Organized Health Care Education/Training Program
DX: N39.0 Urinary tract infection, site not specified (principal); R10.9 Unspecified abdominal pain; F41.9 Anxiety disorder, unspecified; M19.90 Unspecified osteoarthritis, unspecified site; J45.909 Unspecified asthma, uncomplicated; F32.9 Major depressive disorder, single episode, unspecified; K21.9 Gastro-esophageal reflux disease without esophagitis; I10 Essential (primary) hypertension; E78.5 Hyperlipidemia, unspecified; I73.00 Raynaud's syndrome without gangrene
CPT/HCPCS: 36415; 74176; 80053; 81001; 83690; 85025; 87086; 96361; 96365; 96375; 99284; J0696; J2270; J2405; J7030

== ENCOUNTER 2023-03-01 21:13 | Inpatient (IN) | payer MEDICARE, OTHER, SELFPAY ==
--- NOTE | ~2023-03-01 | CT_ITS ---
EXAMINATION: CT soft tissue neck chest wo DATE: 03/02/2023 09:45 INDICATION: Chills. Infected port. TECHNIQUE: Computed tomography (CT) of the neck and chest was performed with 75 mL Omnipaque-350 intr avenous contrast. Automated exposure control and iterative reconstruction technique were employed. Th e dose-length product was 976.51 mGy-cm. COMPARISON: neck CT 11/03/22, chest CT 05/27/19, CT abdomen and pelvis 12/06/2022, 10/03/2021 FINDINGS: CT NECK: There is a right internal jugular port with tip directed superiorly in the internal jugular vein. There is a borderline-enlarged right submandibular lymph node, likely reactive. There is mucosa l thickening in the paranasal sinuses. There are ethmoidectomies and uncinectomies. There is perforat ion of the nasal septum. There is a trace right mastoid effusion. There is severe cervical spondylosi s. CT CHEST: The lungs demonstrate mild atelectasis. There is mucous plugging in the lower lobes. There is an 11 mm nodule in left lower lobe. No pleural effusion. There are calcifications in right brachio cephalic vein, likely chronic thrombus. There is fluid and fat stranding around the subcutaneous port reservoir in anterior right chest. The fluid collection measures 4.9 x 3.0 x 2.9 cm. There is a mild ly enlarged right paratracheal lymph node, likely reactive. There is mild thoracic spondylosis. IMPRESSION: 1. Port tip in abnormal position in right internal jugular vein directed superiorly. 2. 4.9 x 3.0 x 2.9 cm fluid collection around the port reservoir in anterior right chest. This findin g may be seroma, hematoma, or abscess. 3. 11 mm nodule in left lung lower lobe, stable from 12/06/22 and worsened from 7 mm on 10/03/21. This f inding is indeterminate for malignancy. Consider PET/CT. Reviewed, dictated and finalized at location A. IMPRESSION: 1. Port tip in abnormal position in right internal jugular vein directed superi ankit. 2. 4.9 x 3.0 x 2.9 cm fluid collection around the port reservoir in anterior ri ght chest. This finding may be seroma, hematoma, or abscess. 3. 11 mm nodule in left lung lower lobe, stable from 12/06/22 and worsened from 7 mm on 10/03/21. This finding is indeterminate for malignancy. Consider PET/CT.
--- NOTE | ~2023-03-01 | XR_ITS ---
EXAMINATION: XR chest 2V Exam Date/Time: 03/01/2023 22:40 CDT HISTORY: sepsis, PORT INFECTION. JUST HAD A NEW ONE PUT IN. Comparison: None available. RESULT: Lines, tubes, and devices: Right chest implanted port, which enters the right internal jugular vein and is directed superiorly, tip out of the [id number]. Lungs and pleura: Streaky bibasilar atelectasis/scar. No focal consolidation or pneumothorax. Cardiomediastinal silhouette: Stable. Other: No acute osseous or upper abdominal finding. IMPRESSION: No acute cardiopulmonary process. The catheter of the right chest port is directed superiorly into th e neck, tip not included in the [id number] Reviewed, dictated and finalized at location K. IMPRESSION: No acute cardiopulmonary process. The catheter of the right chest port is direc tamar superiorly into the neck, tip not included in the [id number]
[2023-03-01 21:19] VITALS: BP 147/82; PULSE 114; RESP 18; TEMP 38.7; O2SAT 93
--- NOTE | 2023-03-01 21:58 | ECG_ITS ---
Measurements Intervals [place] Rate: 103 P: 39 ID: [id number] QRS: -5 QRSD: 108 T: 3 QT: 322 QTc: 422 Interpretive Statements SINUS TACHYCARDIA BORDERLINE ST-T WAVE ABNORMALITY- ANT/INF LEADS BORDERLINE ECG COMPARED TO ECG 02/21/2022 11:02:15 SINUS TACHYCARDIA NOW PRESENT Electronically Signed On 03-02-2023 6:47:43 CDT by Lex Ch D.O.
--- NOTE | 2023-03-01 22:03 | ED.FEVER ---
HPI - Fever General Chief Complaint: Fever Stated Complaint: fever, infected port Time Seen by Provider: 03/01/23 21:43 History of Present Illness HPI Narrative: Patient is a 52-year-old female with a history of CVID on monthly plasma infusions, COPD, CHF presenting with concern for an infected port. Patient states that she had right-sided port placed a couple of months ago at an [facility] facility. States that for the last couple of days it has been increasingly swollen and red. States that she has been running a high fever. States that her PCP started her on doxycycline today but the redness and swelling is worsening. States that she is scheduled to have the port removed in a couple of weeks. Denies headache, vision changes, numbness or weakness, left-sided chest pain, shortness of breath, abdominal pain, vomiting, diarrhea, leg swelling. States that she has pain over the port site. Related Data Home Medications Medication Instructions Recorded Confirmed albuterol sulfate 2.5 mg/3 mL 2.5 mg inhalation Q6H PRN Dyspnea 09/03/19 03/01/23 (0.083 %) solution for nebulization amlodipine 10 mg tablet 10 mg PO DAILY 09/03/19 03/01/23 epinephrine 0.3 mg/0.3 mL 0.3 mg subcut DIRECTED PRN 09/03/19 03/01/23 injection, auto-injector Anaphylaxis ergocalciferol (vitamin D2) 1,250 50,000 unit PO WEEKLY 09/03/19 03/01/23 mcg (50,000 unit) capsule fluticasone propionate 50 50 mcg intranasal DAILY 09/03/19 03/01/23 mcg/actuation nasal spray,suspension furosemide 40 mg tablet 40 mg PO DAILY 09/03/19 03/01/23 guaifenesin 600 mg tablet, 600 mg PO DAILY 09/03/19 03/01/23 extended release 12 hr (Mucinex) lamotrigine 200 mg tablet 200 mg PO BID 09/03/19 03/01/23 omeprazole 20 mg capsule,delayed 40 mg PO BID 09/03/19 03/01/23 release ondansetron HCl 4 mg tablet 4 mg PO Q8H PRN Nausea And Vomiting 09/03/19 03/01/23 rivaroxaban 20 mg tablet (Xarelto) 20 mg PO DAILY 09/03/19 03/01/23 theophylline 300 mg 300 mg PO BID 09/03/19 03/01/23 tablet,extended release,12 hr tiotropium bromide 18 mcg capsule 18 mcg inhalation DAILY 09/03/19 03/01/23 with inhalation device (Spiriva with HandiHaler) mometasone-formoterol HFA 200 2 puff inhalation BID 11/03/19 03/01/23 mcg-5 mcg/actuation aerosol inhaler (Dulera) fexofenadine 180 mg tablet 180 mg PO DAILY 11/04/20 03/01/23 ramipril 5 mg capsule (Altace) 5 mg PO BID 11/04/20 03/01/23 cetirizine 5 mg-pseudoephedrine ER 1 tablet PO DAILY 01/25/21 03/01/23 120 mg tablet,extended release,12hr diphenhydramine HCl 25 mg capsule 25 mg PO HS 01/25/21 03/01/23 (Allergy (diphenhydramine)) fluticasone propionate 110 1 puff inhalation BID 01/25/21 03/01/23 mcg/actuation HFA aerosol inhaler (Flovent HFA) hydrocodone 5 mg-acetaminophen 325 1 tablet PO Q4H PRN Pain (Scale 01/25/21 03/01/23 mg tablet Score 4-6) folic acid 1 mg tablet 1 mg PO DAILY 03/02/23 03/02/23 levothyroxine 25 mcg tablet 50 mcg PO DAILY 03/02/23 03/02/23 (Unithroid) Allergies Allergy/AdvReac Type Severity Reaction Status Date / Time shellfish derived Allergy Severe Swelling Verified 03/01/23 21:35 of Lip/Tongue/Throat aztreonam Allergy Intermediate RASH Verified 03/01/23 21:35 sulfamethoxazole Allergy Intermediate HIVES Verified 03/01/23 21:35 adhesive Allergy Unknown rash Verified 03/01/23 21:35 aspirin Allergy Unknown anaphylaxis Verified 03/01/23 21:35 ciprofloxacin Allergy Unknown Unknown Verified 03/01/23 21:35 ibuprofen Allergy Unknown Anaphylaxis Verified 03/01/23 21:35 latex Allergy Unknown Dyspnea Verified 03/01/23 21:35 nifedipine Allergy Unknown Urticaria Verified 03/01/23 21:35 NSAIDS (Non-Steroidal Allergy Unknown Anaphylactic Verified 03/01/23 21:35 Anti-Inflamma Shock sulfamethizole Allergy Unknown Urticaria Verified 03/01/23 21:35 terbinafine Allergy Unknown Urticaria Verified 03/01/23 21:35 trimethoprim Allergy Unknown Unknown Verified 03/01/23 21:35 vancomycin Allergy Unknown Rash Verified
[2023-03-01 22:39] VITALS: BP 138/90; PULSE 103; RESP 18; O2SAT 93
[2023-03-01 22:45] LABS: Basophils Absolute Auto 0.1 K/mm3 (0.0-0.1); Basophils Percent Auto 0.7 % (0.2-1.2); Eosinophils Absolute Auto 0.3 K/mm3 (0-0.3); Hematocrit 40.8 % (37.0-47.0); Hemoglobin 13.2 g/dL (12.0-15.0); Immature Granulocyte Absolute 0.06 K/mm3 (0.00-0.031); Immature Granulocyte Percent A 0.4 % (0-0.5); Lymphocytes Absolute Auto 1.84 K/mm3 (0.9-3.2); Lymphocytes Percent Auto 12.8 % (18.3-44.2); Mean Corpuscular HGB Conc 32.4 g/dl (32-36); Mean Corpuscular Hemoglobin 30.2 pg (26-34); Mean Corpuscular Volume 93.4 fl (80-100); Mean Platelet Volume 9.5 fl (7.4-10.4); Monocytes Absolute Auto 1.1 K/mm3 (0.1-0.6); Monocytes Percent Auto 7.5 % (2.6-8.5); Neutrophils Percent Auto 76.6 % (45.5-73.1); Platelet Count Result 417 k/mm3 (150-375); Red Blood Count 4.37 M/mm3 (4.2-5.4); Red Cell Distribution Width 14.3 % (11.5-14.5); White Blood Count 14.4 K/mm3 (4.5-10.0)
[2023-03-01 22:55] LABS: Prothrombin Time 24.3 Seconds (11.1-14.7)
[2023-03-01 22:56] LABS: Partial Thromboplastin Time 43.4 SECONDS (22.3-36.8)
[2023-03-01 22:57] LABS: Lactic Acid Reflex 1.1 mmol/L (0.7-2.0)
[2023-03-01 22:59] LABS: Alanine Aminotransferase 19 U/L (6-35); Albumin Level 4.8 g/dL (3.5-5.1); Alkaline Phosphatase 69 U/L (38-126); Anion Gap 9 mmol/L (8-16); Aspartate Amino Transferase 28 U/L (14-36); Bilirubin,Total 0.8 mg/dL (0.2-1.3); Blood Urea Nitrogen 14 mg/dL (7-17); Calcium 9.1 mg/dL (8.4-10.2); Carbon Dioxide 26 mmol/L (22-30); Chloride 98 mmol/L (98-107); Estimated CRCL calculation 92 ml/min; Estimated Glomerular Filt Rate > 60; Glucose 120 mg/dL (65-110); Potassium 3.9 mmol/L (3.4-5.0); Sodium 133 mmol/L (137-145)
[2023-03-01 23:10] LABS: Troponin I < 0.012 ng/mL (0.000-0.034)
[2023-03-01] MEDS: PIPERACILLN/TAZ 3.375GM/NS50ML 3.375 GM/50 ML BAG IVPB (23:20)
[2023-03-01] MEDS: oxyCODONE HCL (*CRX) 5 MG TAB IR PO (23:26)
[2023-03-01 23:43] LABS: Appearance Urine Clear (Clear); Bilirubin Urine Negative (Negative); Blood Urine Negative (Negative); Color Urine Yellow (Yellow); Glucose Urine UA Negative (Negative); Ketones Urine Negative (Negative); Leukocyte Esterase Ur Negative LEU/UL (Negative); Nitrate Urine Negative (Negative); Protein Urine Negative (Negative); Specific Grav Ur 1.009 (1.001-1.035); Urobilinogen Urine 0.2 mg/dL (<2.0); pH Urine 6.5 (5.0-9.0)
[2023-03-01 23:53] LABS: Add Urine Microscopic? NO
[2023-03-01 23:57] VITALS: TEMP 37.6
[2023-03-02] VITALS (12 sets, daily range): BP systolic 118–131; BP diastolic 67–83; PULSE 74–93; RESP 12–20; TEMP 36.6–37.3; O2SAT 93–100; BMI 38.9
[2023-03-02] MEDS: CLINDAMYCIN 900 MG/D5W 50 ML 900 MG/50 ML PIGGYBACK 50 MG IVPB (00:02)
--- NOTE | 2023-03-02 00:39 | PM.IMHP ---
H&P: HPI History of Present Illness Date/Time: 03/02/23 00:39 Chief Complaint: Infected port Narrative: This is a 52-year-old female with past medical history significant for common variable immune deficiency, chronic port, chronic infusion of immunoglobulins, COPD/emphysema, obesity, hypertension. Patient presented to the emergency room due to tenderness, warmth, redness and swelling of the port site has had chills generalized malaise denies any cough, sputum production, no nausea, no vomiting, no diarrhea, no abdominal pain had a scheduled appointment for removal of the port upcoming. Preliminary workup was significant for chest x-ray was reported as: EXAMINATION:? XR chest 2V Exam Date/Time:? 03/01/2023 22:40 CDT HISTORY: sepsis, PORT INFECTION. JUST HAD A NEW ONE PUT IN. ? Comparison:? None available. RESULT: Lines, tubes, and devices:? Right chest implanted port, which enters the right internal jugular vein and is directed superiorly, tip out of the [id number]. Lungs and pleura:? Streaky bibasilar atelectasis/scar. No focal consolidation or pneumothorax. Cardiomediastinal silhouette:? Stable. Other:? No acute osseous or upper abdominal finding. ? IMPRESSION: No acute cardiopulmonary process. The catheter of the right chest port is directed superiorly into the neck, tip not included in the [id number] Patient is been admitted for further evaluation management and treatment. Review of Systems Review of Systems: Swelling, tenderness, redness, warmth of port site, chills, generalized malaise, malfunctioning port Constitutional: Constitutional: Reports chills, Reports fatigue, Reports fever(s), Reports lethargy, Reports malaise, Reports poor appetite and Reports weakness Eyes: Eyes: Denies change in vision ENT: Denies dysphagia, Denies vertigo, Denies dizziness, Denies nasal congestion, Denies nasal discharge and Denies odynophagia Cardiovascular: Cardiovascular: Denies chest pain, Denies leg edema, Denies lightheadedness and Denies palpitations Respiratory: Respiratory: Denies chest congestion, Denies cough and Denies dyspnea Gastrointestinal: Gastrointestinal: Denies dyspepsia, Denies heartburn, Denies diarrhea, Denies nausea and Denies vomiting Genitourinary: Genitourinary: Denies dysuria Musculoskeletal: Musculoskeletal: Denies back pain, Denies arthralgias, Denies joint swelling and Denies muscle weakness Integumentary/Breasts: Skin/Breast: Reports erythema, Reports skin pain and Reports skin swelling Neurologic: Denies focal weakness and Denies Sensory deficit (Neuro) Psychiatric: Psychiatric: Reports no additional psychiatric complaints and Reports as per HPI Endocrine: Endocrine: Denies cold intolerance, Denies flushing, Denies heat intolerance, Denies polyphagia, Denies polydipsia and Denies palpitations Hematologic/Lymphatic: Hematologic/Lymphatic: Reports no additional hematologic/lymphatic complaints and Reports as per HPI Allergic/Immunologic: Allergic/Immunologic: Reports no additional allergic/immunologic complaints and Reports as per HPI PMFSH Past Medical History Medical History (Updated 03/02/23 @ 03:27 by Anna Santos MD) Anxiety Arthritis Arthropathy of right knee Asthma Colitis Dx 03 September 2019 Common variable immunodeficiency COPD (chronic obstructive pulmonary disease) Depression DVT (deep venous thrombosis) Emphysema of lung Fibromyalgia Foot fracture, left GERD (gastroesophageal reflux disease) GI bleed HLD (hyperlipidemia) HTN (hypertension) IgM deficiency Irritable bowel PCOS (polycystic ovarian syndrome) Pulmonary embolism Raynauds syndrome Surgical History Surgical History H/O dilation and curettage H/O laminectomy H/O sinus surgery History of endometrial ablation History of knee surgery x 2 right x 1 left History of ventral hernia repair (12/28/20) Hx of appendectomy Hx of tonsille
--- NOTE | 2023-03-02 02:10 | ADMGEN ---
This patient, Tracey Lambert, was admitted to 3 [facility] Surg Room 305-01. Patient/family oriented to hospital policies and general routines including ID bracelet, bed and alarms, visiting hours, pain management, procedures, bathroom and other care routines, personal items, smoking policy, room service/diet, and visiting hours. Information on how to activate the Rapid Response Team has been discussed. Patient/Family are encouraged to report perceived risks to care and to ask questions if they do not understand what they are told or what they should do.
[2023-03-02] MEDS: oxyCODONE HCL (*CRX) 5 MG TAB IR PO ×3 (03:49→16:58)
[2023-03-02] MEDS: ALBUTEROL SULFATE NEB 2.5 MG/3 ML INH INHALATION (08:36)
[2023-03-02] MEDS: FLUTICASONE/SALMETEROL 230-21 MCG INHALER 1 PUFF 2 PUFF INHALATION ×2 (08:39→20:14)
[2023-03-02] MEDS: UMECLIDINIUM BROMIDE 62.5 MCG ELLIPTA 1 PUFF INHALATION (08:39)
[2023-03-02] MEDS: HYDROmorphone HCL INJ (*CRX) 1 MG/ML SYR 0.5 MG IV PUSH ×3 (09:04→21:02)
[2023-03-02] MEDS: THEOPHYLLINE 300 MG ER 12 HR TABLET PO ×2 (09:05→20:59)
[2023-03-02] MEDS: ERGOCALCIFEROL 50,000 UNITS CAPSULE 50000 UNITS PO (09:05)
[2023-03-02] MEDS: amLODIPine BESYLATE 5 MG TABLET 10 MG PO (09:05)
[2023-03-02] MEDS: lamoTRIgine 100 MG TABLET 200 MG PO ×2 (09:05→20:57)
--- NOTE | 2023-03-02 10:58 | PM.CNGS ---
Assessment and Plan Assessment and plan (1) Infected venous access port: Code(s): T80.219A - Unspecified infection due to central venous catheter, initial encounter Status: Acute Assessment and Plan: Patient appears to have an infected Port-A-Cath with wound abscess. Despite the fact that she is fully anticoagulated, we will go ahead with removal of the Port-A-Cath today. Unless there is significant bleeding such that the pocket asked to be packed rather than dressed, I will go ahead and place a wound VAC in the infected pocket to facilitate more efficient wound healing. She will not be having another Port-A-Cath placed until this infection is completely resolved. The Port-A-Cath itself is not in suitable position to be used. (2) Common variable immunodeficiency: Code(s): D83.9 - Common variable immunodeficiency, unspecified Status: Chronic Assessment and Plan: Increases risk of infection (3) Chronic anticoagulation: Code(s): Z79.01 - roasterman (current) use of anticoagulants Status: Chronic Assessment and Plan: Took a dose of Xarelto last night. Increases risks of postop bleeding. (4) Chronic, continuous use of opioids: Code(s): F11.90 - Opioid use, unspecified, uncomplicated Status: Chronic Assessment and Plan: Chronic use of hydrocodone. Has neuropathic pain syndrome. History of Present Illness Consult details Consult date: 03/02/23 Reason for consult: central line (Port-A-Cath infected) Requesting physician: Aarcelis Garcia MD Narrative: Patient is a 52-year-old woman with CVID and chronic neuropathic pain disorder. She had a Port-A-Cath placed at an outside facility several weeks ago. Recently it has become swollen and painful. She came to the emergency room where she was noted to have a Port-A-Cath infection and sepsis. Imaging shows the Port-A-Cath is not in the superior vena cava but rather proceeds up to the right internal jugular vein. She has been started on IV antibiotics and I am asked to see her for Port-A-Cath removal and wound care of the infected pocket. She has had fevers to 101.6 [place] [id number]. She has medical illnesses of chronic opioid dependence, fibromyalgia, CVID, irritable bowel syndrome, polycystic ovarian syndrome, pulmonary embolism and chronic anticoagulation with Xarelto. She took her last dose of 20 mg of Xarelto last night. She is seen in consultation at this time. Patient complains of pain and swelling at the right subclavian area. She informed me that the tip of the catheter is in her jaw and that she does need another Port-A-Cath placed. Review of Systems Review of Systems: All systems reviewed & are unremarkable except as noted in HPI and below (HPI and those items noted below) Constitutional: Constitutional: Denies chills and Denies fever(s) Cardiovascular: Cardiovascular: Denies chest pain, Denies diaphoresis, Denies dyspnea and Denies paroxysmal nocturnal dyspnea Respiratory: Respiratory: Denies chest congestion, Denies cough and Denies dyspnea Integumentary/Breasts: Skin/Breast: Denies lesions and Denies rash PMFSH Past Medical History Medical History Anxiety Arthritis Arthropathy of right knee Asthma Colitis Dx 03 September 2019 Common variable immunodeficiency COPD (chronic obstructive pulmonary disease) Depression DVT (deep venous thrombosis) Emphysema of lung Fibromyalgia Foot fracture, left GERD (gastroesophageal reflux disease) GI bleed HLD (hyperlipidemia) HTN (hypertension) IgM deficiency Irritable bowel PCOS (polycystic ovarian syndrome) Pulmonary embolism Raynauds syndrome Surgical History Surgical History H/O dilation and curettage H/O laminectomy H/O sinus surgery History of endometrial ablation History of knee surgery x 2 right x 1 left Histor
[2023-03-02] MEDS: ACETAMINOPHEN 500 MG TABLET 1000 MG PO (11:11)
[2023-03-02] MEDS: FLUTICASONE PROPIONATE 0.05% NA SPR 16 GM BTL (*BKC) 2 SPRAY NASAL (11:11)
[2023-03-02] MEDS: PIPERACILLN/TAZ 3.375GM/NS50ML 3.375 GM/50 ML BAG IVPB ×2 (11:17→17:00)
--- NOTE | 2023-03-02 11:45 | PM.IMPN ---
Progress Note: A&P Assessment and Plan (1) Infected venous access port: Code(s): T80.219A - Unspecified infection due to central venous catheter, initial encounter Status: Acute Assessment and Plan: Presented with redness, swelling over the port site, and high grade fever Continue clindamycin General surgery consult IV fluids CT soft tissue of the chest noted fluid collection, 11mm left lung nodule removal scheduled for today Cultures in progress pain medications ordered (2) COPD (chronic obstructive pulmonary disease): Code(s): J44.9 - Chronic obstructive pulmonary disease, unspecified Status: Acute Assessment and Plan: Stable Continue home meds Continue to monitor (3) HTN (hypertension): Code(s): I10 - Essential (primary) hypertension Status: Acute Assessment and Plan: Restart home meds Continue to monitor BP stable currently on 120/71 (4) Common variable immunodeficiency: Code(s): D83.9 - Common variable immunodeficiency, unspecified Status: Chronic Assessment and Plan: Follow-up in outpatient setting Time Spent With Patient Time: 38 minutes Time with patient: Greater than 35 minutes Subjective Date/time seen: 03/02/231114 Interval history: 03/02/231114 Patient stated that she is pretty uncomfortable at this time. Patient stated that she does have a lot of pain. Currently she is denying any chest pain, shortness a breath, nausea, vomiting, diarrhea constipation. She is wanting to have the procedure done today if possible. Currently she is set for 4:00pm 03/02/23? 00:39 This is a 52-year-old female with past medical history significant for common variable immune deficiency, chronic port, chronic infusion of immunoglobulins, COPD/emphysema, obesity, hypertension.? Patient presented to the emergency room due to tenderness, warmth, redness and swelling of the port site has had chills generalized malaise denies any cough, sputum production, no nausea, no vomiting, no diarrhea, no abdominal pain had a scheduled appointment for removal of the port upcoming. Review of Systems Review of Systems: All systems reviewed & are unremarkable except as noted in HPI and below Exam Narrative: General: well-nourished, well-appearing 52-year-old female, laying in bed, uncomfortable, NARD Neuro: awake, alert and oriented x4, speech clear, no focal neuro deficits noted HEENMT: normocephalic, atraumatic, EOMI, sclerae anicteric, moist oral mucosa Respiratory: Clear to auscultation bilaterally without crackles, rhonchi or wheezes, nonlabored breathing Cardio: regular rate, regular rhythm with S1-S2 Abdomen: nondistended, normoactive bowel sounds, soft, nontender to palpation Extremities: no edema, erythema, or tenderness to palpation, DP pulses 2+ bilaterally Skin: no rashes or lesions, warm and dry Psych: appropriate mood and affect, judgment and insight intact Chest: redness and swelling over the port site noted Objective Data Vital Signs Vital Signs: Vital Signs - 24 hr 03/01/23 21:19 03/01/23 22:39 03/01/23 23:57 Temperature 101.6 F H 99.7 F H Pulse Rate 114 H 103 H Respiratory Rate 18 18 Blood Pressure 147/82 H 138/90 Pulse Oximetry 93 93 Oxygen Delivery Room Air 03/02/23 00:06 03/02/23 01:48 03/02/23 02:27 Temperature 99.1 F Pulse Rate 89 88 89 Respiratory Rate 17 18 18 Blood Pressure 120/78 128/79 131/83 Pulse Oximetry 93 98 94 Oxygen Delivery 03/02/23 08:39 03/02/23 08:39 03/02/23 08:50 Temperature Pulse Rate 92 92 90 Respiratory Rate 20 20 Blood Pressure Pulse Oximetry 93 Oxygen Delivery Room Air 03/02/23 08:15 03/02/23 13:51 03/02/23 15:55 Temperature 99.2 F 98.5 F Pulse Rate 77 93 Respiratory Rate 16 15 Blood Pressure 131/72 130/77 Pulse Oximetry 99 96 Oxygen Delivery Room Air Room Air Room Air 03/02/23 16:10 03/02/23 16:25 03/02/23 16:40 Temperature P
--- NOTE | 2023-03-02 12:20 | WPDANESEPPF ---
Anes - Initial Pre Proc Eval Procedure: Operation Date: 03/02/23 16:00 Proposed Procedures p Removal Right Subclavian Shanelle Cath - Kelechi Lazar MD Date/Time: 03/02/23 12:20 Surgeon: Anna Santos MD Pre Op Diagnosis: Infected Port Patient Data Age: 52 Gender: F Height: 1.7 m Weight: 112.9 kg Last Vital Signs Temp 37.3 C 03/02/23 02:27 Pulse 90 03/02/23 08:50 Resp 20 03/02/23 08:50 BP 131/83 03/02/23 02:27 Pulse Ox 93 03/02/23 08:39 O2 Del Method Room Air 03/02/23 08:39 Allergies Allergy/AdvReac Type Severity Reaction Status Date / Time shellfish derived Allergy Severe Swelling Verified 03/01/23 21:35 of Lip/Tongue/Throat aztreonam Allergy Intermediate RASH Verified 03/01/23 21:35 sulfamethoxazole Allergy Intermediate HIVES Verified 03/01/23 21:35 adhesive Allergy Unknown rash Verified 03/01/23 21:35 aspirin Allergy Unknown anaphylaxis Verified 03/01/23 21:35 ciprofloxacin Allergy Unknown Unknown Verified 03/01/23 21:35 ibuprofen Allergy Unknown Anaphylaxis Verified 03/01/23 21:35 latex Allergy Unknown Dyspnea Verified 03/01/23 21:35 nifedipine Allergy Unknown Urticaria Verified 03/01/23 21:35 NSAIDS (Non-Steroidal Allergy Unknown Anaphylactic Verified 03/01/23 21:35 Anti-Inflamma Shock sulfamethizole Allergy Unknown Urticaria Verified 03/01/23 21:35 terbinafine Allergy Unknown Urticaria Verified 03/01/23 21:35 trimethoprim Allergy Unknown Unknown Verified 03/01/23 21:35 vancomycin Allergy Unknown Rash Verified 03/01/23 21:35 Home Medications Medication Instructions Recorded Confirmed Type albuterol sulfate 2.5 mg/3 mL 2.5 mg inhalation Q6H PRN Dyspnea 09/03/19 03/01/23 History (0.083 %) solution for nebulization amlodipine 10 mg tablet 10 mg PO DAILY 09/03/19 03/01/23 History epinephrine 0.3 mg/0.3 mL 0.3 mg subcut DIRECTED PRN 09/03/19 03/01/23 History injection, auto-injector Anaphylaxis ergocalciferol (vitamin D2) 1,250 50,000 unit PO WEEKLY 09/03/19 03/01/23 History mcg (50,000 unit) capsule fluticasone propionate 50 50 mcg intranasal DAILY 09/03/19 03/01/23 History mcg/actuation nasal spray,suspension furosemide 40 mg tablet 40 mg PO DAILY 09/03/19 03/01/23 History guaifenesin 600 mg tablet, 600 mg PO DAILY 09/03/19 03/01/23 History extended release 12 hr (Mucinex) lamotrigine 200 mg tablet 200 mg PO BID 09/03/19 03/01/23 History omeprazole 20 mg capsule,delayed 40 mg PO BID 09/03/19 03/01/23 History release ondansetron HCl 4 mg tablet 4 mg PO Q8H PRN Nausea And Vomiting 09/03/19 03/01/23 History rivaroxaban 20 mg tablet (Xarelto) 20 mg PO DAILY 09/03/19 03/01/23 History theophylline 300 mg 300 mg PO BID 09/03/19 03/01/23 History tablet,extended release,12 hr tiotropium bromide 18 mcg capsule 18 mcg inhalation DAILY 09/03/19 03/01/23 History with inhalation device (Spiriva with HandiHaler) mometasone-formoterol HFA 200 2 puff inhalation BID 11/03/19 03/01/23 History mcg-5 mcg/actuation aerosol inhaler (Dulera) fexofenadine 180 mg tablet 180 mg PO DAILY 11/04/20 03/01/23 History ramipril 5 mg capsule (Altace) 5 mg PO BID 11/04/20 03/01/23 History cetirizine 5 mg-pseudoephedrine ER 1 tablet PO DAILY 01/25/21 03/01/23 History 120 mg tablet,extended release,12hr diphenhydramine HCl 25 mg capsule 25 mg PO HS 01/25/21 03/01/23 History (Allergy (diphenhydramine)) fluticasone propionate 110 1 puff inhalation BID 01/25/21 03/01/23 History mcg/actuation HFA aerosol inhaler (Flovent HFA) hydrocodone 5 mg-acetaminophen 325 1 tablet PO Q4H PRN Pain (Scale 01/25/21 03/01/23 History mg tablet Score 4-6) cefdinir 300 mg capsule 300 mg PO Q12H #14 caps 12/06/22 03/01/23 Rx folic acid 1 mg tablet 1 mg PO DAILY 03/02/23 03/02/23 History levothyroxine 25 mcg tablet 50 mcg PO DAILY 03/02/23 03/02/23 History (Unithroid) Laboratory Tests 03/01/23 03/01/23 22:39 23:19 WBC 14.4 H K/mm3 (4.5-10.0
[2023-03-02] MEDS: LACTATED RINGERS 1,000 ML 30 ML IV CONT (13:45)
--- NOTE | 2023-03-02 14:55 | WPDHPUPDATE1 ---
History and Physical Update Update Date/Time: 03/02/23 14:55 History and Physical has been reviewed, including an updated exam of the patient. There are NO changes in the patient's condition. Risks, benefits, and alternatives have been discussed and questions answered. Patient agrees to proceed with procedure.
[2023-03-02] MEDS: ceFAZolin 2 GM/D5W 50 ML 2 GM/50 ML BAG IVPB (15:17)
[2023-03-02] MEDS: BUPIVACAINE/EPINEPHRINE 0.5% 50 ML VIAL 10 ML INFILTRATE (15:41)
--- NOTE | 2023-03-02 16:10 | W.PM.PROC2 ---
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 There was a large pocket with fluctuance. The tip of the Port-A-Cath was in the right internal jugular vein rather the superior vena cava. She is taken to surgery now for removal of the Port-A-Cath with drainage of the wound pocket abscess and placement of a wound VAC. Findings Purulent fluid filling the Port-A-Cath pocket. Intact Port-A-Cath. Fibrin is exudate. No evidence of necrosis or necrotizing infection. Description of Procedure Patient was taken to surgery and anesthesia was introduced. Prep and drape of the right subclavian area was carried out. Local anesthetic was infiltrated into the skin and the deeper subcutaneous tissues. Incision was made and deepened through the subcutaneous into the Port-A-Cath pocket. Thin purulent fluid gushed forth. Culture for aerobes, anaerobes, and Gram stain was obtained. Fluid was suctioned out of the Port-A-Cath pocket. The Port-A-Cath itself was exposed. The suture attached to the Port-A-Cath was dissected and removed. Port-A-Cath then easily came out of the pocket. The tubing was intact came out to the expected length. Port-A-Cath itself was discarded. The wound was irrigated and suctioned. Wound VAC was then placed. Black foam was then cut to the appropriate size and placed within the Port-A-Cath pocket. Adherent transparent gauze was placed over the wound and the surrounding skin. Transparent gauze attached to the suction tubing was then placed over the black foam. Wound VAC was turned on and was working well. Patient was then awakened and taken to recovery in good condition. Sponge and needle counts were correct x2. Estimated Blood Loss 0 Drains Yes (Wound VAC) Pathology Other (Cultures only) Complications No immediate complications Condition Stable Disposition PACU [facility] Billing Surgery - Charge Forward: Surgery Billing (Removal Port-A-Cath, drainage wound abscess, placement wound VAC.)
[2023-03-02] MEDS: fentaNYL CITRATE INJ (*CRX) 100 MCG/2 ML VIAL 25 MCG IV PUSH ×4 (16:16→16:30)
[2023-03-02] MEDS: PANTOPRAZOLE 40 MG TABLET PO (16:58)
[2023-03-02] MEDS: guaiFENesin 12 HR 600 MG TABCR PO (20:57)
[2023-03-02] MEDS: diphenhydrAMINE HCl CAP 25 MG CAPSULE PO (20:57)
[2023-03-02] MEDS: ramipriL 5 MG CAPSULE PO (20:58)
[2023-03-03] MEDS: PIPERACILLN/TAZ 3.375GM/NS50ML 3.375 GM/50 ML BAG IVPB ×5 (00:26→23:17)
[2023-03-03] MEDS: LEVOTHYROXINE SODIUM 50 MCG TABLET PO (05:37)
[2023-03-03] MEDS: HYDROmorphone HCL INJ (*CRX) 1 MG/ML SYR 0.5 MG IV PUSH ×3 (05:38→20:46)
[2023-03-03 05:50] VITALS: BP 102/58; PULSE 80; RESP 14; TEMP 37.1; O2SAT 97
[2023-03-03 06:36] LABS: Hematocrit 37.9 % (37.0-47.0); Hemoglobin 11.8 g/dL (12.0-15.0); Mean Corpuscular HGB Conc 31.1 g/dl (32-36); Mean Corpuscular Hemoglobin 29.9 pg (26-34); Mean Corpuscular Volume 95.9 fl (80-100); Mean Platelet Volume 9.4 fl (7.4-10.4); Platelet Count Result 352 k/mm3 (150-375); Red Blood Count 3.95 M/mm3 (4.2-5.4); Red Cell Distribution Width 13.8 % (11.5-14.5); White Blood Count 13.8 K/mm3 (4.5-10.0)
[2023-03-03 06:47] LABS: Anion Gap 8 mmol/L (8-16); Blood Urea Nitrogen 9 mg/dL (7-17); Calcium 9.1 mg/dL (8.4-10.2); Carbon Dioxide 27 mmol/L (22-30); Chloride 104 mmol/L (98-107); Estimated CRCL calculation 119 ml/min; Estimated Glomerular Filt Rate > 60; Glucose 90 mg/dL (65-110); Potassium 3.9 mmol/L (3.4-5.0); Sodium 139 mmol/L (137-145)
--- NOTE | 2023-03-03 06:59 | WPDANESPN ---
Anes - Prog Note Post-Op Date/Time: 03/03/23 06:59 Cardiovascular status: normal Respiratory status: normal Airway patency: baseline Mental status: baseline Post-Op hydration status: normal Vital Signs: Last Vital Signs Temp 37.1 C 03/03/23 05:50 Pulse 80 03/03/23 05:50 Resp 14 03/03/23 05:50 BP 102/58 L 03/03/23 05:50 Pulse Ox 97 03/03/23 05:50 O2 Del Method Room Air 03/02/23 20:00 Pain Score (VAS): 2 I/O: Intake & Output 03/02/23 03/02/23 03/03/23 15:59 23:59 07:59 Intake Total 100 1030 400 Balance 100 1030 400 Laboratory Tests 03/03/23 06:12 03/03/23 06:12 03/03/23 06:12 WBC 13.8 H RBC 3.95 L Hgb 11.8 L Hct 37.9 MCV 95.9 MCH 29.9 MCHC 31.1 L RDW 13.8 Plt Count 352 MPV 9.4 Sodium 139 Potassium 3.9 Chloride 104 Carbon Dioxide 27 Anion Gap 8 BUN 9 D Creatinine 0.60 L Estim Creat Clear Calc 119 Estimated GFR > 60 Glucose 90 Calcium 9.1 Microbiology 03/01/23 22:38 Blood Blood Culture - Preliminary 03/01/23 22:38 Blood Blood Culture - Preliminary Post-procedural complaints: none Patient Feedback: Patient satisfied with anesthetic care.
[2023-03-03] MEDS: lamoTRIgine 100 MG TABLET 200 MG PO ×2 (08:30→20:45)
[2023-03-03] MEDS: guaiFENesin 12 HR 600 MG TABCR PO ×2 (08:30→20:45)
[2023-03-03] MEDS: ramipriL 5 MG CAPSULE PO ×2 (08:30→20:45)
[2023-03-03] MEDS: oxyCODONE HCL (*CRX) 5 MG TAB IR PO ×3 (08:30→17:18)
[2023-03-03] MEDS: THEOPHYLLINE 300 MG ER 12 HR TABLET PO ×2 (08:30→20:45)
[2023-03-03] MEDS: amLODIPine BESYLATE 5 MG TABLET 10 MG PO (08:30)
[2023-03-03] MEDS: PANTOPRAZOLE 40 MG TABLET PO ×2 (08:30→17:18)
[2023-03-03] MEDS: FLUTICASONE PROPIONATE 0.05% NA SPR 16 GM BTL (*BKC) 2 SPRAY NASAL (08:31)
[2023-03-03 09:00] VITALS: PULSE 81; RESP 16
[2023-03-03] MEDS: UMECLIDINIUM BROMIDE 62.5 MCG ELLIPTA 1 PUFF INHALATION (09:00)
[2023-03-03] MEDS: FLUTICASONE/SALMETEROL 230-21 MCG INHALER 1 PUFF 2 PUFF INHALATION ×2 (09:00→20:40)
[2023-03-03 10:13] VITALS: BP 130/73; PULSE 81; RESP 16; TEMP 36.1; O2SAT 100
--- NOTE | 2023-03-03 11:00 | PM.IMPN ---
Progress Note: A&P Assessment and Plan (1) Infected venous access port: Qualifiers: Encounter type: subsequent encounter Qualified Code(s): T80.219D - Unspecified infection due to central venous catheter, subsequent encounter Code(s): T80.219A - Unspecified infection due to central venous catheter, initial encounter Status: Acute Assessment and Plan: Presented with redness, swelling over the port site, and high grade fever Continue Zosyn General surgery consult IV fluids CT soft tissue of the chest noted fluid collection, 11mm left lung nodule port was removed on 03/02/23, wound vac now present Blood Cultures grew staph coccus in clusters in one bottle, will hold off on treatment as it seems to be more likely a contaminate pain medications ordered (2) COPD (chronic obstructive pulmonary disease): Code(s): J44.9 - Chronic obstructive pulmonary disease, unspecified Status: Acute Assessment and Plan: Stable Continue home meds Continue to monitor (3) HTN (hypertension): Code(s): I10 - Essential (primary) hypertension Status: Acute Assessment and Plan: Restart home meds Continue to monitor BP stable currently on 130/73 (4) Common variable immunodeficiency: Code(s): D83.9 - Common variable immunodeficiency, unspecified Status: Chronic Assessment and Plan: Follow-up in outpatient setting Plan Staph coccus in cluster in one bottle of blood cultures hold off on changing antibiotics as this is most likely a contamination WBC slightly elevated probably related to post procedure no fevers noted Continue to tend labs Time Spent With Patient Time: 48 minutes Time with patient: Greater than 35 minutes Subjective Date/time seen: 03/03/23 1100 Interval history: 03/03/23 1100 patient was sitting in bed and is doing well. She does have some significant pain which she stated the pain medicine is helping. Talked to her about her labs in other findings. She currently denies any chest pain, shortness a breath, nausea, vomiting, diarrhea constipation. She does states that she was concerned about getting a DVT however has been walking around the room since she is not getting her Xarelto. She stated that she is allergic to Lovenox and gave her big whelps on her body. 03/02/23 1115 Patient stated that she is pretty uncomfortable at this time. Patient stated that she does have a lot of pain. Currently she is denying any chest pain, shortness a breath, nausea, vomiting, diarrhea constipation. She is wanting to have the procedure done today if possible. Currently she is set for 4:00pm 03/02/23? 00:39 This is a 52-year-old female with past medical history significant for common variable immune deficiency, chronic port, chronic infusion of immunoglobulins, COPD/emphysema, obesity, hypertension.? Patient presented to the emergency room due to tenderness, warmth, redness and swelling of the port site has had chills generalized malaise denies any cough, sputum production, no nausea, no vomiting, no diarrhea, no abdominal pain had a scheduled appointment for removal of the port upcoming. Review of Systems Review of Systems: All systems reviewed & are unremarkable except as noted in HPI and below Exam Narrative: General: well-nourished, well-appearing 52-year-old female, laying in bed, uncomfortable, NARD Neuro: awake, alert and oriented x4, speech clear, no focal neuro deficits noted HEENMT: normocephalic, atraumatic, EOMI, sclerae anicteric, moist oral mucosa Respiratory: Clear to auscultation bilaterally without crackles, rhonchi or wheezes, nonlabored breathing Cardio: regular rate, regular rhythm with S1-S2 Abdomen: nondistended, normoactive bowel sounds, soft, nontender to palpation Extremities: no edema, erythema, or tenderness to palpation, DP pulses 2+ bilaterally Skin: no rashes or lesions, warm and dry Psych: appropriate
--- NOTE | 2023-03-03 11:23 | PM.PNGS ---
Progress Note: A&P Assessment and Plan (1) Infected venous access port: Qualifiers: Encounter type: subsequent encounter Qualified Code(s): T80.219D - Unspecified infection due to central venous catheter, subsequent encounter Code(s): T80.219A - Unspecified infection due to central venous catheter, initial encounter Status: Acute Assessment and Plan: Catheter successfully removed yesterday and abscess drained. Wound VAC in place and working well. Cultures pending from wound. Continue IV antibiotics. (2) Chronic anticoagulation: Code(s): Z79.01 - roasterman (current) use of anticoagulants Status: Chronic Assessment and Plan: Xarelto on hold. No evidence of bleeding complication from surgery as yet. (3) Chronic, continuous use of opioids: Code(s): F11.90 - Opioid use, unspecified, uncomplicated Status: Chronic Subjective Subjective Date/Time Seen: 03/03/23 11:23 Post Op day: 1 Patient reports: no new complaints Exam Chest: Chest palpation & inspection: abnormal inspection of the chest (Wound VAC in place, working well, less erythema), no crepitus and tenderness Objective Data Vital Signs Vital Signs: Vital Signs - 24 hr 03/02/23 13:51 03/02/23 15:55 03/02/23 16:10 Temperature 37.3 C 36.9 C Pulse Rate 77 93 83 Respiratory Rate 16 15 14 Blood Pressure 131/72 130/77 120/74 Pulse Oximetry 99 96 96 Oxygen Delivery Room Air Room Air Room Air 03/02/23 16:25 03/02/23 16:40 03/02/23 20:16 Temperature Pulse Rate 83 83 74 Respiratory Rate 12 12 16 Blood Pressure 130/76 120/71 Pulse Oximetry 100 98 Oxygen Delivery Room Air Room Air 03/02/23 21:53 03/02/23 20:00 03/03/23 05:50 Temperature 36.6 C 37.1 C Pulse Rate 75 80 Respiratory Rate 16 14 Blood Pressure 118/67 102/58 L Pulse Oximetry 96 97 Oxygen Delivery Room Air 03/03/23 08:00 03/03/23 10:13 03/03/23 09:00 Temperature 36.1 C L Pulse Rate 81 81 Respiratory Rate 16 16 Blood Pressure 130/73 Pulse Oximetry 100 Oxygen Delivery Room Air Intake/Output Intake/Output: Intake & Output 05/03/23 03/01/23 03/02/23 03/03/23 23:59 23:59 23:59 23:59 Intake Total 100 3230 640 Output Total 1 Balance 100 3229 640 Meds/Results Medications: Active Medications Generic Name Dose Route Start Last Admin Trade Name Freq PRN Reason Stop Dose Admin Acetaminophen 1,000 mg 03/02/23 03:25 03/02/23 11:11 Acetaminophen 500 Mg Tablet PO 1,000 mg Q6H PRN Administration Mild Pain (1-3) or Fever Albuterol 2.5 mg 03/02/23 03:22 03/02/23 08:36 Albuterol Sulfate Neb 2.5 Mg/3 Ml Inh INHALATION 2.5 mg Q6H PRN Administration Dyspnea Amlodipine Besylate 10 mg 03/02/23 09:00 03/03/23 08:30 Amlodipine Besylate 5 Mg Tablet PO 10 mg DAILY RUSTY Administration Diphenhydramine HCl 25 mg 03/02/23 21:00 03/02/23 20:57 Diphenhydramine Hcl Cap 25 Mg Capsule PO 25 mg HS RUSTY Administration Ergocalciferol 50,000 units 03/02/23 09:00 03/02/23 09:05 Ergocalciferol 50,000 Units Capsule PO 50,000 units Fr@0900 RUSTY Administration Fluticasone Propionate 2 spray 03/02/23 09:00 03/03/23 08:31 Fluticasone Propionate 0.05% Na Spr 16 Gm Btl (*Bkc) NASAL 2 spray DAILY RUSTY Administration Guaifenesin 600 mg 03/02/23 09:00 03/03/23 08:30 Guaifenesin 12 Hr 600 Mg Tabcr PO 600 mg Q12HR RUSTY Administration Hydromorphone HCl 0.5 mg 03/02/23 11:59 03/03/23 05:38 Hydromorphone Hcl Inj (*Crx) 1 Mg/Ml Syr IV PUSH 0.5 mg Q3H PRN Administration Pain Rated 7-10 Piperacillin/Tazobactam/Dextrose 3.375 gm in 50 mls @ 100 mls/hr 03/02/23 12:00 03/03/23 05:37 Zosyn 3.375 Gm/Ns 50 Ml IVPB 100 mls/hr Q6HR RUSTY Administration Lamotrigine 200 mg 03/02/23 09:00 03/03/23 08:30 Lamotrigine 100 Mg Tablet PO 200 mg Q12HR RUSTY Administration Levothyroxine Sodium 50 mcg 03/03/23 06:30 03/03/23 05:3
[2023-03-03 14:27] VITALS: BP 123/76; PULSE 79; RESP 18; TEMP 36.3; O2SAT 100
[2023-03-03 20:00] VITALS: PULSE 80; RESP 16; O2SAT 99
[2023-03-03] MEDS: diphenhydrAMINE HCl CAP 25 MG CAPSULE PO (20:45)
[2023-03-03 21:48] VITALS: BP 117/70; PULSE 80; RESP 16; TEMP 36.3; O2SAT 99
[2023-03-04] MEDS: HYDROmorphone HCL INJ (*CRX) 1 MG/ML SYR 0.5 MG IV PUSH ×5 (02:21→21:27)
[2023-03-04 06:28] LABS: Basophils Absolute Auto 0.1 K/mm3 (0.0-0.1); Basophils Percent Auto 0.4 % (0.2-1.2); Eosinophils Absolute Auto 0.4 K/mm3 (0-0.3); Eosinophils Percent Auto 3.7 % (0-4.4); Hematocrit 34.3 % (37.0-47.0); Hemoglobin 10.8 g/dL (12.0-15.0); Immature Granulocyte Absolute 0.13 K/mm3 (0.00-0.031); Immature Granulocyte Percent A 1.2 % (0-0.5); Lymphocytes Absolute Auto 3.37 K/mm3 (0.9-3.2); Mean Corpuscular HGB Conc 31.5 g/dl (32-36); Mean Corpuscular Hemoglobin 30.3 pg (26-34); Mean Corpuscular Volume 96.3 fl (80-100); Mean Platelet Volume 9.6 fl (7.4-10.4); Monocytes Absolute Auto 0.8 K/mm3 (0.1-0.6); Monocytes Percent Auto 7.5 % (2.6-8.5); Neutrophils Absolute Auto 6.4 K/mm3 (1.3-6.7); Neutrophils Percent Auto 57.2 % (45.5-73.1); Platelet Count Result 353 k/mm3 (150-375); Red Blood Count 3.56 M/mm3 (4.2-5.4); Red Cell Distribution Width 14.1 % (11.5-14.5); White Blood Count 11.2 K/mm3 (4.5-10.0)
[2023-03-04] MEDS: PIPERACILLN/TAZ 3.375GM/NS50ML 3.375 GM/50 ML BAG IVPB (06:31)
[2023-03-04] MEDS: LEVOTHYROXINE SODIUM 50 MCG TABLET PO (06:31)
[2023-03-04 06:38] VITALS: BP 126/73; PULSE 69; RESP 16; TEMP 36.1; O2SAT 99
[2023-03-04 07:01] LABS: Alanine Aminotransferase 14 U/L (6-35); Albumin Level 3.8 g/dL (3.5-5.1); Alkaline Phosphatase 59 U/L (38-126); Anion Gap 8 mmol/L (8-16); Aspartate Amino Transferase 21 U/L (14-36); Bilirubin,Total 0.4 mg/dL (0.2-1.3); Blood Urea Nitrogen 13 mg/dL (7-17); Calcium 8.5 mg/dL (8.4-10.2); Carbon Dioxide 27 mmol/L (22-30); Chloride 106 mmol/L (98-107); Estimated CRCL calculation 104 ml/min; Estimated Glomerular Filt Rate > 60; Glucose 88 mg/dL (65-110); Potassium 3.6 mmol/L (3.4-5.0); Sodium 141 mmol/L (137-145)
[2023-03-04] MEDS: oxyCODONE HCL (*CRX) 5 MG TAB IR PO ×3 (08:12→16:14)
[2023-03-04] MEDS: lamoTRIgine 100 MG TABLET 200 MG PO ×2 (08:13→21:26)
[2023-03-04] MEDS: guaiFENesin 12 HR 600 MG TABCR PO ×2 (08:13→21:26)
[2023-03-04] MEDS: amLODIPine BESYLATE 5 MG TABLET 10 MG PO (08:13)
[2023-03-04] MEDS: ramipriL 5 MG CAPSULE PO ×2 (08:13→21:26)
[2023-03-04] MEDS: PANTOPRAZOLE 40 MG TABLET PO ×2 (08:13→16:13)
[2023-03-04] MEDS: THEOPHYLLINE 300 MG ER 12 HR TABLET PO ×2 (08:13→21:26)
[2023-03-04] MEDS: FLUTICASONE PROPIONATE 0.05% NA SPR 16 GM BTL (*BKC) 2 SPRAY NASAL (08:14)
[2023-03-04] MEDS: FLUTICASONE/SALMETEROL 230-21 MCG INHALER 1 PUFF 2 PUFF INHALATION ×2 (08:27→21:05)
[2023-03-04] MEDS: UMECLIDINIUM BROMIDE 62.5 MCG ELLIPTA 1 PUFF INHALATION (08:27)
[2023-03-04] MEDS: cefTRIAXone 2 GM/NS 100 ML 2 GM/100 ML BAG IVPB (10:20)
[2023-03-04 12:59] VITALS: TEMP 37.3
[2023-03-04] MEDS: ACETAMINOPHEN 500 MG TABLET 1000 MG PO (12:59)
--- NOTE | 2023-03-04 13:30 | PM.IMPN ---
Progress Note: A&P Assessment and Plan (1) Infected venous access port: Qualifiers: Encounter type: subsequent encounter Qualified Code(s): T80.219D - Unspecified infection due to central venous catheter, subsequent encounter Code(s): T80.219A - Unspecified infection due to central venous catheter, initial encounter Status: Acute Assessment and Plan: Presented with redness, swelling over the port site, and high grade fever Continue Zosyn General surgery consult IV fluids CT soft tissue of the chest noted fluid collection, 11mm left lung nodule port was removed on 03/02/23, wound vac now present Blood and wound Cultures grew staph aureus MSSA Change Zosyn to Ceftriaxone 2gm Q24H, and Ancef will start tomorrow Will consult ID pharm pain medications ordered (2) COPD (chronic obstructive pulmonary disease): Qualifiers: COPD type: unspecified COPD Qualified Code(s): J44.9 - Chronic obstructive pulmonary disease, unspecified Code(s): J44.9 - Chronic obstructive pulmonary disease, unspecified Status: Acute Assessment and Plan: Stable Continue home meds Continue to monitor Not in acute exacerbation (3) HTN (hypertension): Qualifiers: Hypertension type: primary hypertension Qualified Code(s): I10 - Essential (primary) hypertension Code(s): I10 - Essential (primary) hypertension Status: Acute Assessment and Plan: Restart home meds Continue to monitor BP stable currently on 126/73 (4) Common variable immunodeficiency: Code(s): D83.9 - Common variable immunodeficiency, unspecified Status: Chronic Assessment and Plan: Follow-up in outpatient setting (5) Bacteremia associated with IV line: Qualifiers: Encounter type: initial encounter Qualified Code(s): T82.7XXA - Infection and inflammatory reaction due to other cardiac and vascular devices, implants and grafts, initial encounter; R78.81 - Bacteremia Code(s): T82.7XXA - Infection and inflammatory reaction due to other cardiac and vascular devices, implants and grafts, initial encounter; R78.81 - Bacteremia Status: Acute Assessment and Plan: Blood culture grew Staph Aureus (MSSA) Change Zosyn to Ceftriaxone 2g Q24H, start ancef in the am Repeat blood cultures ordered ID consult Await sensitivities No fevers noted Most likely related to infected port, since wound cultures came back the same Time Spent With Patient Time: 48 minutes Time with patient: Greater than 35 minutes Subjective Date/time seen: 03/04/23 1330 Interval history: 03/04/231329 patient seems to be in good spirits. She is wondering about her blood infection. She denies any chest pain, shortness of breath, weakness, fatigue, constipation, diarrhea. She showed me some pictures from some of her reactions. She also told me that the pain is still relatively high and that The area is throbbing. she is also worried that she is Going to run into some constipation is requesting some stool softeners. 03/03/23 1100 patient was sitting in bed and is doing well. She does have some significant pain which she stated the pain medicine is helping. Talked to her about her labs in other findings. She currently denies any chest pain, shortness a breath, nausea, vomiting, diarrhea constipation. She does states that she was concerned about getting a DVT however has been walking around the room since she is not getting her Xarelto. She stated that she is allergic to Lovenox and gave her big whelps on her body. 03/02/23 1115 Patient stated that she is pretty uncomfortable at this time. Patient stated that she does have a lot of pain. Currently she is denying any chest pain, shortness a breath, nausea, vomiting, diarrhea constipation. She is wanting to have the procedure done today if p
--- NOTE | 2023-03-04 13:30 | P.PNIM_ITS ---
Progress Note: A&P Assessment and Plan (1) Infected venous access port: Qualifiers: Encounter type: subsequent encounter Qualified Code(s): T80.219D - Unspecified infection due to central venous catheter, subsequent encounter Code(s): T80.219A - Unspecified infection due to central venous catheter, initial encounter Status: Acute Assessment and Plan: * Presented with redness, swelling over the port site, and high grade fever * Continue Zosyn * General surgery consult * IV fluids * CT soft tissue of the chest noted fluid collection, 11mm left lung nodule * port was removed on 03/02/23, wound vac now present * Blood and wound Cultures grew staph aureus MSSA * Change Zosyn to Ceftriaxone 2gm Q24H, and Ancef will start tomorrow * Will consult ID pharm * pain medications ordered (2) COPD (chronic obstructive pulmonary disease): Qualifiers: COPD type: unspecified COPD Qualified Code(s): J44.9 - Chronic obstructive pulmonary disease, unspecified Code(s): J44.9 - Chronic obstructive pulmonary disease, unspecified Status: Acute Assessment and Plan: * Stable * Continue home meds * Continue to monitor * Not in acute exacerbation (3) HTN (hypertension): Qualifiers: Hypertension type: primary hypertension Qualified Code(s): I10 - Essential (primary) hypertension Code(s): I10 - Essential (primary) hypertension Status: Acute Assessment and Plan: * Restart home meds * Continue to monitor * BP stable * currently on 126/73 (4) Common variable immunodeficiency: Code(s): D83.9 - Common variable immunodeficiency, unspecified Status: Chronic Assessment and Plan: * Follow-up in outpatient setting (5) Bacteremia associated with IV line: Qualifiers: Encounter type: initial encounter Qualified Code(s): T82.7XXA - Infection and inflammatory reaction due to other cardiac and vascular devices, implants and grafts, initial encounter; R78.81 - Bacteremia Code(s): T82.7XXA - Infection and inflammatory reaction due to other cardiac and vascular devices, implants and grafts, initial encounter; R78.81 - Bacteremia Status: Acute Assessment and Plan: * Blood culture grew Staph Aureus (MSSA) * Change Zosyn to Ceftriaxone 2g Q24H, start ancef in the am * Repeat blood cultures ordered * ID consult * Await sensitivities * No fevers noted * Most likely related to infected port, since wound cultures came back the same Time Spent With Patient Time: 48 minutes Time with patient: Greater than 35 minutes Subjective Date/time seen: 03/04/231329 Interval history: 03/04/231329 patient seems to be in good spirits. She is wondering about her blood infection. She denies any chest pain, shortness of breath, weakness, fatigue, constipation, diarrhea. She showed me some pictures from some of her reactions. She also told me that the pain is still relatively high and that The area is throbbing. she is also worried that she is Going to run into some constipation is requesting some stool softeners. 03/03/23 1100 patient was sitting in bed and is doing well. She does have some significant pain which she stated the pain medicine is helping. Talked to her about her labs in other findings. She currently denies any chest pain, shortness a breath, nausea, vomiting, diarrhea constipation.
[2023-03-04] MEDS: FUROSEMIDE 40 MG TABLET PO (16:13)
[2023-03-04 20:00] VITALS: PULSE 72; RESP 16; O2SAT 99
[2023-03-04 21:05] VITALS: PULSE 77; RESP 16
[2023-03-04] MEDS: diphenhydrAMINE HCl CAP 25 MG CAPSULE PO (21:26)
[2023-03-04] MEDS: DOCUSATE SODIUM 100 MG CAPSULE PO (21:26)
[2023-03-04 21:55] VITALS: BP 127/78; PULSE 72; RESP 16; TEMP 36.3; O2SAT 99
--- NOTE | 2023-03-05 | ECHO_ITS ---
Patient Info Name: Tracey Lambert Age: 52 years : 1970 Gender: Female Ht: 67 in Wt: 248 lbs BSA: 2.36 m2 HR: 72 bpm BP: 128 / 76 mmHg Technical Quality: Good Exam Date: 03/05/2023 1:01 PM Exam Location: [facility] Exam Room: 305 Patient Status: Inpatient Admit Date: 03/02/2023 Staff Ordering Physician: James Spear Patient Service Associate: Reena Abdullahi RDCS Attending Provider: Anna Santos MD Referring Physician: Rainer BENSON; Exam Type: CA echo doppler color flow Study Info Indications - blood infection Complete two-dimensional, color flow and Doppler transthoracic echocardiogram is performed. Summary 1. Complete two-dimensional, color flow and Doppler transthoracic echocardiogram is performed. 2. Left ventricular chamber dimension is normal. 3. Left ventricular systolic function is normal, estimated at 60-65%. 4. The left ventricular diastolic function is grade II diastolic dysfunction. 5. E/e' 8 is minimally elevated. 6. There is trace mitral valve regurgitation. 7. There is trace tricuspid valve regurgitation. 8. No pulmonary hypertension, estimated pulmonary arterial systolic pressure is 36 mmHg. Left Ventricle E/e' 8 is minimally elevated. Left ventricular chamber dimension is normal. Left ventricular systolic function is normal, estimated at 60-65%. The left ventricular diastolic function is grade II diastolic dysfunction. Right Ventricle Right ventricular chamber dimension is normal. Right ventricular systolic function is normal. Left Atria Left atrial chamber dimension is normal. Right Atria Right atrial chamber dimension is normal. Aortic Valve The aortic valve is trileaflet. There is no aortic valve stenosis. There is no aortic valve regurgitation. Pulmonic Valve There is no pulmonic regurgitation. Mitral Valve There is no mitral valve stenosis. There is trace mitral valve regurgitation. Tricuspid Valve There is trace tricuspid valve regurgitation. No pulmonary hypertension, estimated pulmonary arterial systolic pressure is 36 mmHg. Pericardium/Pleural There is no pericardial effusion. Inferior Vena Cava Normal inferior vena cava with >50% collapse upon inspiration consistent with normal right atrial pressure, 5 mmHg. Aorta The aortic root size at the sinus of Valsalva is normal. Left Ventricular Outflow Tract Name Value Normal LVOT 2D LVOT Diameter 2.0 cm LVOT Doppler LVOT Peak Gradient 5 mmHg LVOT Mean Gradient 3 mmHg LVOT VTI 22 cm LVOT VTI/AV VTI Ratio 0.8 LVOT Stroke Volume 68 ml LVOT CO 14.8 l/min LVOT CI 6.3 l/min/m2 Pulmonic Valve Name Value Normal RVOT Doppler RVOT Peak Gradient 2 mmHg PV Doppler
[2023-03-05] MEDS: HYDROmorphone HCL INJ (*CRX) 1 MG/ML SYR 0.5 MG IV PUSH ×4 (04:11→20:48)
[2023-03-05] MEDS: LEVOTHYROXINE SODIUM 50 MCG TABLET PO (05:33)
[2023-03-05] MEDS: FOLIC ACID 1 MG TABLET PO (05:33)
[2023-03-05] MEDS: ceFAZolin 2 GM/D5W 50 ML 2 GM/50 ML BAG IVPB ×2 (05:33→13:31)
[2023-03-05 06:03] VITALS: BP 106/64; PULSE 73; RESP 16; TEMP 36.3; O2SAT 99
[2023-03-05 06:37] LABS: Basophils Absolute Auto 0.1 K/mm3 (0.0-0.1); Basophils Percent Auto 0.8 % (0.2-1.2); Eosinophils Absolute Auto 0.5 K/mm3 (0-0.3); Eosinophils Percent Auto 7.3 % (0-4.4); Hematocrit 38.7 % (37.0-47.0); Hemoglobin 11.7 g/dL (12.0-15.0); Immature Granulocyte Absolute 0.02 K/mm3 (0.00-0.031); Immature Granulocyte Percent A 0.3 % (0-0.5); Lymphocytes Absolute Auto 2.44 K/mm3 (0.9-3.2); Lymphocytes Percent Auto 34.3 % (18.3-44.2); Mean Corpuscular HGB Conc 30.2 g/dl (32-36); Mean Corpuscular Hemoglobin 29.8 pg (26-34); Mean Corpuscular Volume 98.7 fl (80-100); Mean Platelet Volume 9.3 fl (7.4-10.4); Monocytes Absolute Auto 0.5 K/mm3 (0.1-0.6); Monocytes Percent Auto 6.5 % (2.6-8.5); Neutrophils Absolute Auto 3.6 K/mm3 (1.3-6.7); Neutrophils Percent Auto 50.8 % (45.5-73.1); Platelet Count Result 391 k/mm3 (150-375); Red Blood Count 3.92 M/mm3 (4.2-5.4); White Blood Count 7.1 K/mm3 (4.5-10.0)
[2023-03-05 06:52] LABS: Alanine Aminotransferase 15 U/L (6-35); Albumin Level 4.2 g/dL (3.5-5.1); Alkaline Phosphatase 63 U/L (38-126); Anion Gap 9 mmol/L (8-16); Aspartate Amino Transferase 20 U/L (14-36); Bilirubin,Total 0.4 mg/dL (0.2-1.3); Blood Urea Nitrogen 8 mg/dL (7-17); Calcium 8.9 mg/dL (8.4-10.2); Carbon Dioxide 26 mmol/L (22-30); Chloride 102 mmol/L (98-107); Estimated CRCL calculation 104 ml/min; Estimated Glomerular Filt Rate > 60; Glucose 93 mg/dL (65-110); Magnesium 2.1 mg/dL (1.6-2.3); Potassium 3.5 mmol/L (3.4-5.0); Sodium 137 mmol/L (137-145)
--- NOTE | 2023-03-05 07:46 | PM.PNGS ---
Progress Note: A&P Assessment and Plan (1) Infected venous access port: Qualifiers: Encounter type: subsequent encounter Qualified Code(s): T80.219D - Unspecified infection due to central venous catheter, subsequent encounter Code(s): T80.219A - Unspecified infection due to central venous catheter, initial encounter Status: Acute Assessment and Plan: Wound healing well. Culture showing Staph aureus but sensitivities pending. Will start silver gel with Aquacel Silver rope and Mepilex transfer today. Okay to shower. (2) Chronic anticoagulation: Code(s): Z79.01 - jail (current) use of anticoagulants Status: Chronic Assessment and Plan: Continue to hold Xarelto for now. Subjective Subjective Date/Time Seen: 03/05/23 07:46 Post Op day: 3 Patient reports: no new complaints, feels better and pain is less Interval history: Wound VAC was not working and replaced with wet to dry dressing. I was not aware until this morning. Exam Chest: Chest palpation & inspection: abnormal inspection of the chest (Right subclavian wound looks great, granulating and pink.) Objective Data Vital Signs Vital Signs: Vital Signs - 24 hr 03/04/23 08:00 03/04/23 12:59 03/04/23 21:05 Temperature 37.3 C Pulse Rate 77 Respiratory Rate 16 Blood Pressure Pulse Oximetry Oxygen Delivery Room Air 03/04/23 21:55 03/04/23 20:00 03/05/23 06:03 Temperature 36.3 C L 36.3 C L Pulse Rate 72 72 73 Respiratory Rate 16 16 16 Blood Pressure 127/78 106/64 Pulse Oximetry 99 99 99 Oxygen Delivery Room Air Intake/Output Intake/Output: Intake & Output 03/02/23 03/03/23 03/04/23 03/05/23 23:59 23:59 23:59 23:59 Intake Total 3230 1870 2370 450 Output Total 1 Balance 3229 1870 2370 450 Meds/Results Medications: Active Medications Generic Name Dose Route Start Last Admin Trade Name Freq PRN Reason Stop Dose Admin Acetaminophen 1,000 mg 03/02/23 03:25 03/04/23 12:59 Acetaminophen 500 Mg Tablet PO 1,000 mg Q6H PRN Administration Mild Pain (1-3) or Fever Albuterol 2.5 mg 03/02/23 03:22 03/02/23 08:36 Albuterol Sulfate Neb 2.5 Mg/3 Ml Inh INHALATION 2.5 mg Q6H PRN Administration Dyspnea Amlodipine Besylate 10 mg 03/02/23 09:00 03/04/23 08:13 Amlodipine Besylate 5 Mg Tablet PO 10 mg DAILY RUSTY Administration Diphenhydramine HCl 25 mg 03/02/23 21:00 03/04/23 21:26 Diphenhydramine Hcl Cap 25 Mg Capsule PO 25 mg HS RUSTY Administration Docusate Sodium 100 mg 03/04/23 21:00 03/04/23 21:26 Docusate Sodium 100 Mg Capsule PO 100 mg Q12HR RUSTY Administration Ergocalciferol 50,000 units 03/02/23 09:00 03/02/23 09:05 Ergocalciferol 50,000 Units Capsule PO 50,000 units Fr@0900 RUSTY Administration Fluticasone Propionate 2 spray 03/02/23 09:00 03/04/23 08:14 Fluticasone Propionate 0.05% Na Spr 16 Gm Btl (*Bkc) NASAL 2 spray DAILY RUSTY Administration Folic Acid 1 mg 03/05/23 06:30 03/05/23 05:33 Folic Acid 1 Mg Tablet PO 1 mg DAILY@0630 RUSTY Administration Furosemide 40 mg 03/04/23 15:20 03/04/23 16:13 Furosemide 40 Mg Tablet PO 40 mg DAILY RUSTY Administration Guaifenesin 600 mg 03/02/23 09:00 03/04/23 21:26 Guaifenesin 12 Hr 600 Mg Tabcr PO 600 mg Q12HR RUSTY Administration Hydromorphone HCl 0.5 mg 03/02/23 11:59 03/05/23 04:11 Hydromorphone Hcl Inj (*Crx) 1 Mg/Ml Syr IV PUSH 0.5 mg Q3H PRN Administration Pain Rated 7-10 Cefazolin Sodium 2 gm in 50 mls @ 100 mls/hr 03/05/23 06:00 03/05/23 06:03 Ancef 2 Gm/D5w 50 Ml IVPB Infused Q8H RUSTY Infusion Lamotrigine 200 mg 03/02/23 09:00 03/04/23 21:26 Lamotrigine 100 Mg Tablet PO 200 mg Q12HR RUSTY Administration Levothyroxine Sodium 50 mcg 03/03/23 06:30 03/05/23 05:33 Levothyroxine Sodium 50 Mcg Tablet PO 50 mcg DAILY@0630 RUSTY Administration Loratadine/Pseudoephedrine
[2023-03-05] MEDS: DOCUSATE SODIUM 100 MG CAPSULE PO ×2 (07:59→20:47)
[2023-03-05 08:00] VITALS: BP 128/76
[2023-03-05] MEDS: amLODIPine BESYLATE 5 MG TABLET 10 MG PO (08:00)
[2023-03-05] MEDS: PANTOPRAZOLE 40 MG TABLET PO ×2 (08:00→16:42)
[2023-03-05] MEDS: guaiFENesin 12 HR 600 MG TABCR PO ×2 (08:01→20:47)
[2023-03-05] MEDS: lamoTRIgine 100 MG TABLET 200 MG PO ×2 (08:01→20:48)
[2023-03-05] MEDS: ramipriL 5 MG CAPSULE PO ×2 (08:01→20:48)
[2023-03-05] MEDS: THEOPHYLLINE 300 MG ER 12 HR TABLET PO ×2 (08:01→20:48)
[2023-03-05] MEDS: oxyCODONE HCL (*CRX) 5 MG TAB IR PO ×3 (08:02→16:42)
[2023-03-05] MEDS: FUROSEMIDE 40 MG TABLET PO (08:02)
[2023-03-05] MEDS: FLUTICASONE PROPIONATE 0.05% NA SPR 16 GM BTL (*BKC) 2 SPRAY NASAL (08:03)
[2023-03-05] MEDS: UMECLIDINIUM BROMIDE 62.5 MCG ELLIPTA 1 PUFF INHALATION (08:46)
[2023-03-05] MEDS: FLUTICASONE/SALMETEROL 230-21 MCG INHALER 1 PUFF 2 PUFF INHALATION ×2 (08:48→19:29)
--- NOTE | 2023-03-05 08:49 | IDPHARM ---
[facility] was consulted by Candice Spear regarding infectious diseases for Tracey Lambert. Tracey Lambert is a 52 year old F with concerns regarding MSSA BSI likely 2/2 patient's port also growing MSSA. Background The patient is currently receiving Cefazolin 2g q8h (D2). The patient's PMH includes multiple past infections per consulting provider, COPD, HTN, immunodeficiency among others. Additionally, patient has positive BCX on 03/01 with MSSA in one bottle of one set with repeat sets ordered on 03/04 that are still pending. Preliminary cultures obtained during port removal by surgery on 03/02 that also involved abscess drainage also growing Staphylococcus aureus with sensitivities pending. Admission BCX note MSSA resistant to clindamycin and erythromycin (Oxacillin NICOLETTE 0.5). Patient is also allergic to many antibiotic classes. Options unavailable to us include: Sulfamethoxazole/Trimethoprim, Aztreonam, Vancomycin, and Ciprofloxacin. Leukocytosis has resolved from admission (14.4 --> 7.1) and SCr remains stable around 0.7 mg/dL with CrCl >100 mL/min. 03/01 BCX: MSSA 11/01 bottles - R to clinda/eryth 03/02 Op CX: Staphylococcus aureus - sensitivities pending 03/04 BCX: Pending Assessment/Recommendation/Discussion Discussed patient with consulting provider and noted that the provider is currently seeking an echo at this time. Additionally, with the source of this BSI likely removed via the drainage of abscess and port removal on 03/02 - source control has likely been achieved (pending echo). Will leave diagnostic considerations to all providers. Discussions with provider revealed that patient may not be able to financially afford OPAT as the patient did require this in the past and was left with a hefty bill per the patient despite patient having insurance in the form of [employer]. Should the echo not reveal any further insidious source of infection, the patient will likely require two weeks of antibiotics from negative blood cultures (currently 03/04 BCX pending but if negative then EOT of 03/17/23). Ideally, the patient is able to receive oxacillin 12g/24h or nafcillin 12g/24h once outpatient for this duration, however if oral options are required linezolid serves as an appropriate (reported sensitive by Denise at [facility] and will be released) option for completing this relatively short course of 2 weeks after negative BCX. Linezolid may interact with patient's theophylline - can result in increased blood pressure and monitoring of BP is recommended whilst usage is concurrent (see below for a summary of this potential interaction). Will follow peripherally for 5/7 BCX being clear, sensitivities of 5/5 operative culture, and echo results but please reach out if needed if additional information is required or 5/7 BCX return positive, 5/5 Operative culture S. aureus has concerning resistances not accounted for, or if the indication for antibiotics changes. Theophylline and Linezolid interaction: Effect was noted in one clinical study (PMID [id number] and package insert) that patients receiving non-serotonergic sympathomimetics (pseudoephedrine / phenylpropanolamine in this study) found a peak increase in BP by 14-24 mmHg in healthy volunteers 2-3 hours after sympathomimetic administration and blood pressures returned to baseline 2-3 hours after this peak (no affect on HR). Thank you for the interesting consult. Wesly Gardner, SaeD Infectious Disease/Antimicrobial Stewardship Pharmacist 03/05/23; [id number]
--- NOTE | 2023-03-05 09:48 | PCWOUND ---
Spoke with Dr. Lazar who states wound vac was removed sometime on 03/04/23. Patient was already seen by today and states wound vac therapy no longer needed. Patient does not need to be followed by wound care at this time.
[2023-03-05] MEDS: SILVERGEL (ELTA) 45 ML 1 APPLIC TOPICAL (10:18)
[2023-03-05] MEDS: HYDROCOLLOID DRESSING 1 PATCH TOPICAL (10:18)
[2023-03-05] MEDS: SILVER NITRATE 1 EA BANDAGE (AQUACEL-AG)(*BKC) 1 EACH TOPICAL (10:19)
--- NOTE | 2023-03-05 13:45 | PM.IMPN ---
Progress Note: A&P Assessment and Plan (1) Infected venous access port: Qualifiers: Encounter type: subsequent encounter Qualified Code(s): T80.219D - Unspecified infection due to central venous catheter, subsequent encounter Code(s): T80.219A - Unspecified infection due to central venous catheter, initial encounter Status: Acute Assessment and Plan: Presented with redness, swelling over the port site, and high grade fever General surgery consult IV fluids stopped CT soft tissue of the chest noted fluid collection, 11mm left lung nodule port was removed on 03/02/23, wound vac now present Blood and wound Cultures grew staph aureus MSSA Repeat blood cultures are still pending discontinue ancef and start Zyvox to watch for any reactions Will consult ID pharm pain medications ordered (2) COPD (chronic obstructive pulmonary disease): Qualifiers: COPD type: unspecified COPD Qualified Code(s): J44.9 - Chronic obstructive pulmonary disease, unspecified Code(s): J44.9 - Chronic obstructive pulmonary disease, unspecified Status: Acute Assessment and Plan: Stable Continue home meds Continue to monitor Not in acute exacerbation (3) HTN (hypertension): Qualifiers: Hypertension type: primary hypertension Qualified Code(s): I10 - Essential (primary) hypertension Code(s): I10 - Essential (primary) hypertension Status: Acute Assessment and Plan: Restart home meds Continue to monitor BP stable currently on 128/76 (4) Common variable immunodeficiency: Code(s): D83.9 - Common variable immunodeficiency, unspecified Status: Chronic Assessment and Plan: Follow-up in outpatient setting (5) Bacteremia associated with IV line: Qualifiers: Encounter type: initial encounter Qualified Code(s): T82.7XXA - Infection and inflammatory reaction due to other cardiac and vascular devices, implants and grafts, initial encounter; R78.81 - Bacteremia Code(s): T82.7XXA - Infection and inflammatory reaction due to other cardiac and vascular devices, implants and grafts, initial encounter; R78.81 - Bacteremia Status: Acute Assessment and Plan: Blood culture grew Staph Aureus (MSSA) Ancef continued Repeat blood cultures ordered ID consult Await sensitivities No fevers noted Most likely related to infected port, since wound cultures came back the same If need IV antibiotics Oxicillin or naficillin both 12gm Q24H, or Zyvox 600mg PO BID for 2 weeks from negative 03/04/23 Started Zyvox. Echo is pending read Time Spent With Patient Time: 52 minutes Time with patient: Greater than 35 minutes Subjective Date/time seen: 03/05/23 1345 Interval history: 03/05/23 1345 She is laying in bed. Pain has been controlled. She is aware of the plan for up coming days. She is wanting to hopefully be able to be discharged tomorrow. She denies any chest pain, shortness of breath, nausea, vomiting, diarrhea, constipation. 03/04/23 1330 patient seems to be in good spirits. She is wondering about her blood infection. She denies any chest pain, shortness of breath, weakness, fatigue, constipation, diarrhea. She showed me some pictures from some of her reactions. She also told me that the pain is still relatively high and that The area is throbbing. she is also worried that she is Going to run into some constipation is requesting some stool softeners. 03/03/23 1100 patient was sitting in bed and is doing well. She does have some significant pain which she stated the pain medicine is helping. Talked to her about her labs in other findings. She currently denies any chest pain, shortness a breath, nausea, vomiting, diarrhea constipation. She does states that she was concerned about getting a DVT however has been walking around the
--- NOTE | 2023-03-05 13:45 | P.PNIM_ITS ---
Progress Note: A&P Assessment and Plan (1) Infected venous access port: Qualifiers: Encounter type: subsequent encounter Qualified Code(s): T80.219D - Unspecified infection due to central venous catheter, subsequent encounter Code(s): T80.219A - Unspecified infection due to central venous catheter, initial encounter Status: Acute Assessment and Plan: * Presented with redness, swelling over the port site, and high grade fever * General surgery consult * IV fluids stopped * CT soft tissue of the chest noted fluid collection, 11mm left lung nodule * port was removed on 03/02/23, wound vac now present * Blood and wound Cultures grew staph aureus MSSA * Repeat blood cultures are still pending * discontinue ancef and start Zyvox to watch for any reactions * Will consult ID pharm * pain medications ordered (2) COPD (chronic obstructive pulmonary disease): Qualifiers: COPD type: unspecified COPD Qualified Code(s): J44.9 - Chronic obstructive pulmonary disease, unspecified Code(s): J44.9 - Chronic obstructive pulmonary disease, unspecified Status: Acute Assessment and Plan: * Stable * Continue home meds * Continue to monitor * Not in acute exacerbation (3) HTN (hypertension): Qualifiers: Hypertension type: primary hypertension Qualified Code(s): I10 - Essential (primary) hypertension Code(s): I10 - Essential (primary) hypertension Status: Acute Assessment and Plan: * Restart home meds * Continue to monitor * BP stable * currently on 128/76 (4) Common variable immunodeficiency: Code(s): D83.9 - Common variable immunodeficiency, unspecified Status: Chronic Assessment and Plan: * Follow-up in outpatient setting (5) Bacteremia associated with IV line: Qualifiers: Encounter type: initial encounter Qualified Code(s): T82.7XXA - Infection and inflammatory reaction due to other cardiac and vascular devices, implants and grafts, initial encounter; R78.81 - Bacteremia Code(s): T82.7XXA - Infection and inflammatory reaction due to other cardiac and vascular devices, implants and grafts, initial encounter; R78.81 - Bacteremia Status: Acute Assessment and Plan: * Blood culture grew Staph Aureus (MSSA) * Ancef continued * Repeat blood cultures ordered * ID consult * Await sensitivities * No fevers noted * Most likely related to infected port, since wound cultures came back the same * If need IV antibiotics Oxicillin or naficillin both 12gm Q24H, or Zyvox 600mg PO BID for 2 weeks from negative 03/04/23 * Started Zyvox. * Echo is pending read Time Spent With Patient Time: 52 minutes Time with patient: Greater than 35 minutes Subjective Date/time seen: 03/05/23 1345 Interval history: 03/05/231344 She is laying in bed. Pain has been controlled. She is aware of the plan for up coming days. She is wanting to hopefully be able to be discharged tomorrow. She denies any chest pain, shortness of breath, nausea, vomiting, diarrhea, constipation. 03/04/23 1330 patient seems to be in good spirits. She is wondering about her blood infection. She denies any chest pain, shortness of breath, weakness, fatigue, constipation, diarrhea. She showed me some pictures from some of her reactions. She also told me that the pain is still relatively high and that T
[2023-03-05 14:00] VITALS: BP 134/96; PULSE 100; RESP 122; TEMP 36.1; O2SAT 98
[2023-03-05 19:31] VITALS: PULSE 75; RESP 18
[2023-03-05] MEDS: LINEZOLID 600 MG TABLET PO (20:48)
[2023-03-05] MEDS: diphenhydrAMINE HCl CAP 25 MG CAPSULE PO (20:48)
[2023-03-05 21:50] VITALS: BP 128/74; PULSE 88; RESP 18; TEMP 37.4; O2SAT 98
[2023-03-06] MEDS: HYDROmorphone HCL INJ (*CRX) 1 MG/ML SYR 0.5 MG IV PUSH ×3 (04:03→12:42)
[2023-03-06] MEDS: LEVOTHYROXINE SODIUM 50 MCG TABLET PO (05:56)
[2023-03-06] MEDS: FOLIC ACID 1 MG TABLET PO (05:56)
[2023-03-06 06:40] VITALS: BP 121/71; PULSE 84; RESP 18; TEMP 37.2; O2SAT 95
[2023-03-06 06:41] LABS: Basophils Absolute Auto 0.1 K/mm3 (0.0-0.1); Eosinophils Absolute Auto 0.6 K/mm3 (0-0.3); Eosinophils Percent Auto 7.2 % (0-4.4); Hematocrit 38.3 % (37.0-47.0); Hemoglobin 12.1 g/dL (12.0-15.0); Immature Granulocyte Absolute 0.02 K/mm3 (0.00-0.031); Immature Granulocyte Percent A 0.3 % (0-0.5); Lymphocytes Absolute Auto 2.37 K/mm3 (0.9-3.2); Lymphocytes Percent Auto 30.3 % (18.3-44.2); Mean Corpuscular HGB Conc 31.6 g/dl (32-36); Mean Corpuscular Hemoglobin 29.9 pg (26-34); Mean Corpuscular Volume 94.6 fl (80-100); Mean Platelet Volume 9.2 fl (7.4-10.4); Monocytes Absolute Auto 0.6 K/mm3 (0.1-0.6); Monocytes Percent Auto 7.8 % (2.6-8.5); Neutrophils Absolute Auto 4.2 K/mm3 (1.3-6.7); Neutrophils Percent Auto 53.4 % (45.5-73.1); Platelet Count Result 449 k/mm3 (150-375); Red Blood Count 4.05 M/mm3 (4.2-5.4); Red Cell Distribution Width 13.8 % (11.5-14.5); White Blood Count 7.8 K/mm3 (4.5-10.0)
[2023-03-06 07:00] LABS: Alanine Aminotransferase 15 U/L (6-35); Albumin Level 4.5 g/dL (3.5-5.1); Alkaline Phosphatase 63 U/L (38-126); Anion Gap 11 mmol/L (8-16); Aspartate Amino Transferase 24 U/L (14-36); Bilirubin,Total 0.6 mg/dL (0.2-1.3); Blood Urea Nitrogen 9 mg/dL (7-17); Calcium 9.2 mg/dL (8.4-10.2); Carbon Dioxide 26 mmol/L (22-30); Chloride 99 mmol/L (98-107); Estimated CRCL calculation 92 ml/min; Estimated Glomerular Filt Rate > 60; Glucose 96 mg/dL (65-110); Magnesium 2.2 mg/dL (1.6-2.3); Potassium 3.9 mmol/L (3.4-5.0); Sodium 136 mmol/L (137-145)
[2023-03-06] MEDS: oxyCODONE HCL (*CRX) 5 MG TAB IR PO (08:11)
[2023-03-06] MEDS: guaiFENesin 12 HR 600 MG TABCR PO (08:18)
[2023-03-06] MEDS: LINEZOLID 600 MG TABLET PO (08:18)
[2023-03-06] MEDS: ramipriL 5 MG CAPSULE PO (08:18)
[2023-03-06] MEDS: THEOPHYLLINE 300 MG ER 12 HR TABLET PO (08:18)
[2023-03-06] MEDS: amLODIPine BESYLATE 5 MG TABLET 10 MG PO (08:18)
[2023-03-06] MEDS: PANTOPRAZOLE 40 MG TABLET PO (08:18)
[2023-03-06] MEDS: DOCUSATE SODIUM 100 MG CAPSULE PO (08:18)
[2023-03-06] MEDS: lamoTRIgine 100 MG TABLET 200 MG PO (08:18)
[2023-03-06] MEDS: FUROSEMIDE 40 MG TABLET PO (08:19)
[2023-03-06] MEDS: FLUTICASONE PROPIONATE 0.05% NA SPR 16 GM BTL (*BKC) 2 SPRAY NASAL (08:41)
[2023-03-06] MEDS: FLUTICASONE/SALMETEROL 230-21 MCG INHALER 1 PUFF 2 PUFF INHALATION (09:00)
[2023-03-06] MEDS: UMECLIDINIUM BROMIDE 62.5 MCG ELLIPTA 1 PUFF INHALATION (09:00)
--- NOTE | 2023-03-06 09:30 | P.DS_ITS ---
DS: Admitting Diagnosis Discharge Date 03/06/23 0830 Admitting Diagnosis Bacteremia, infected implanted port DS: Discharge Diagnosis Discharge Diagnosis (1) Infected venous access port: Qualifiers: Encounter type: subsequent encounter Qualified Code(s): T80.219D - Unspecified infection due to central venous catheter, subsequent encounter Code(s): T80.219A - Unspecified infection due to central venous catheter, initial encounter Status: Acute Assessment and Plan: * Presented with redness, swelling over the port site, and high grade fever * General surgery consult * IV fluids stopped * CT soft tissue of the chest noted fluid collection, 11mm left lung nodule * port was removed on 03/02/23, wound vac now present * Blood and wound Cultures grew staph aureus MSSA * Repeat blood cultures are still pending * discontinue ancef and start Zyvox to watch for any reactions * Will consult ID pharm * pain medications ordered (2) COPD (chronic obstructive pulmonary disease): Qualifiers: COPD type: unspecified COPD Qualified Code(s): J44.9 - Chronic o bstructive pulmonary disease, unspecified Code(s): J44.9 - Chronic obstructive pulmonary disease, unspecified Status: Acute Assessment and Plan: * Stable * Continue home meds * Continue to monitor * Not in acute exacerbation (3) HTN (hypertension): Qualifiers: Hypertension type: primary hypertension Qualified Code(s): I10 - Essential (primary) hypertension Code(s): I10 - Essential (primary) hypertension Status: Acute Assessment and Plan: * Restart home meds * Continue to monitor * BP stable * currently on 121/71 (4) Common variable immunodeficiency: Code(s): D83.9 - Common variable immunodeficiency, unspecified Status: Chronic Assessment and Plan: * Follow-up in outpatient setting (5) Bacteremia associated with IV line: Qualifiers: Encounter type: initial encounter Qualified Code(s): T82.7XXA - Infection and inflammatory reaction due to other cardiac and vascular devices, implants and grafts, initial encounter; R78.81 - Bacteremia Code(s): T82.7XXA - Infection and inflammatory reaction due to other cardiac and vascular devices, implants and grafts, initial encounter; R78.81 - Bacteremia Status: Acute Assessment and Plan: * Blood culture grew Staph Aureus (MSSA) * Ancef continued * Repeat blood cultures ordered * ID consult * Await sensitivities * No fevers noted * Most likely related to infected port, since wound cultures came back the same * If need IV antibiotics Oxicillin or naficillin both 12gm Q24H, or Zyvox 600mg PO BID for 2 weeks from negative 03/04/23 * Started Zyvox. * Echo showed EF of 60-65% with grade 2 diastolic dysfunction Plan Was called to the patient's room today for what appeared to be purulent drainage of the right upper chest wound. Wound Care has been consulted and surgery did also come to evaluate. After removing the dressing, purulence appearing drainage did flow out however the tissue underneath appears to be healthy and well. Seems to be more likely the drainage came from the silver alginate. No signs or symptoms of further infection. Will continue Zyvox at this time. Dr. Lazar also viewed the wound and the patient and is okay with discharge at this ti me. Wound was clean and dressed and specific would instru
--- NOTE | 2023-03-06 09:30 | PM.DS ---
DS: Admitting Diagnosis Discharge Date 03/06/23829 Admitting Diagnosis Bacteremia, infected implanted port DS: Discharge Diagnosis Discharge Diagnosis (1) Infected venous access port: Qualifiers: Encounter type: subsequent encounter Qualified Code(s): T80.219D - Unspecified infection due to central venous catheter, subsequent encounter Code(s): T80.219A - Unspecified infection due to central venous catheter, initial encounter Status: Acute Assessment and Plan: Presented with redness, swelling over the port site, and high grade fever General surgery consult IV fluids stopped CT soft tissue of the chest noted fluid collection, 11mm left lung nodule port was removed on 03/02/23, wound vac now present Blood and wound Cultures grew staph aureus MSSA Repeat blood cultures are still pending discontinue ancef and start Zyvox to watch for any reactions Will consult ID pharm pain medications ordered (2) COPD (chronic obstructive pulmonary disease): Qualifiers: COPD type: unspecified COPD Qualified Code(s): J44.9 - Chronic obstructive pulmonary disease, unspecified Code(s): J44.9 - Chronic obstructive pulmonary disease, unspecified Status: Acute Assessment and Plan: Stable Continue home meds Continue to monitor Not in acute exacerbation (3) HTN (hypertension): Qualifiers: Hypertension type: primary hypertension Qualified Code(s): I10 - Essential (primary) hypertension Code(s): I10 - Essential (primary) hypertension Status: Acute Assessment and Plan: Restart home meds Continue to monitor BP stable currently on 121/71 (4) Common variable immunodeficiency: Code(s): D83.9 - Common variable immunodeficiency, unspecified Status: Chronic Assessment and Plan: Follow-up in outpatient setting (5) Bacteremia associated with IV line: Qualifiers: Encounter type: initial encounter Qualified Code(s): T82.7XXA - Infection and inflammatory reaction due to other cardiac and vascular devices, implants and grafts, initial encounter; R78.81 - Bacteremia Code(s): T82.7XXA - Infection and inflammatory reaction due to other cardiac and vascular devices, implants and grafts, initial encounter; R78.81 - Bacteremia Status: Acute Assessment and Plan: Blood culture grew Staph Aureus (MSSA) Ancef continued Repeat blood cultures ordered ID consult Await sensitivities No fevers noted Most likely related to infected port, since wound cultures came back the same If need IV antibiotics Oxicillin or naficillin both 12gm Q24H, or Zyvox 600mg PO BID for 2 weeks from negative 03/04/23 Started Zyvox. Echo showed EF of 60-65% with grade 2 diastolic dysfunction Plan Was called to the patient's room today for what appeared to be purulent drainage of the right upper chest wound. Wound Care has been consulted and surgery did also come to evaluate. After removing the dressing, purulence appearing drainage did flow out however the tissue underneath appears to be healthy and well. Seems to be more likely the drainage came from the silver alginate. No signs or symptoms of further infection. Will continue Zyvox at this time. Dr. Lazar also viewed the wound and the patient and is okay with discharge at this time. Wound was clean and dressed and specific would instructions have been given to the patient. DS: Summary Hospital Course Hospital Course: Patient is a 52-year-old white male with a past medical history of immuno deficiency, chronic port, chronic IgG infusions, COPD, obesity, hypertension who presented to the ED with complaints of tenderness, warmth, redness, increased swelling at the site of the port. Prior to coming the patient did state that she had a fever of 104. At that time her has been made her come to the ED. General surge
--- NOTE | 2023-03-06 09:45 | PM.PNGS ---
Progress Note: A&P Assessment and Plan (1) Infected venous access port: Qualifiers: Encounter type: subsequent encounter Qualified Code(s): T80.219D - Unspecified infection due to central venous catheter, subsequent encounter Code(s): T80.219A - Unspecified infection due to central venous catheter, initial encounter Status: Acute Assessment and Plan: Wound continues to heal well. Will change to silver gel dressing changes with moist gauze wicked into the wound, essentially wet to dry dressings to be changed daily. Patient states her and friends who are nurses will be able to assist with her daily dressing changes. Discussed with the Hospitalist that it is okay to discharge home on Linezolid from our standpoint. Follow-up with Dr. Lazar in 1 week. (2) Chronic anticoagulation: Code(s): Z79.01 - assisted (current) use of anticoagulants Status: Chronic Plan I have discussed the patient's case and plan of care with Dr. Lazar. Subjective Subjective Date/Time Seen: 03/06/23 09:45 Post Op day: 4 (Removal right subclavian Port-A-Cath, drainage abscess, placement wound VAC) Patient reports: no new complaints and afebrile Interval history: Chart reviewed. I was called to the room by the wound care nurse this morning as there was report from staff that she had purulent drainage from her right chest wound. Per wound care nurse, they had her wound packed with silver rope and covered with a duoderm dressing. When I entered the room, her dressing was already removed. No new complaints or acute changes overnight per the patient. Exam Narrative: Right chest wound with minimal yellow drainage in the wound and on the silver rope. The wound was irrigated and cleaned with wound cleanser. The entire wound bed appears pink and healthy with granulation tissue forming. No purulent drainage or pockets of fluid noted. Wound healing well. No surrounding erythema. Const: General: comfortable and no acute distress Orientation/consciousness: patient oriented x3 Objective Data Vital Signs Vital Signs: Vital Signs - 24 hr 03/05/23 14:00 03/05/23 19:31 03/05/23 21:50 Temperature 97.0 F L 99.3 F Pulse Rate 100 75 88 Respiratory Rate 122 H 18 18 Blood Pressure 134/96 H 128/74 Pulse Oximetry 98 98 03/06/23 06:40 Temperature 98.9 F Pulse Rate 84 Respiratory Rate 18 Blood Pressure 121/71 Pulse Oximetry 95 Intake/Output Intake/Output: Intake & Output 03/03/23 03/04/23 03/05/23 03/06/23 23:59 23:59 23:59 23:59 Intake Total 1870 2369 1969 200 Balance 1870 2369 1969 200 Meds/Results Medications: Active Medications Generic Name Dose Route Start Last Admin Trade Name Freq PRN Reason Stop Dose Admin Acetaminophen 1,000 mg 03/02/23 03:25 03/04/23 12:59 Acetaminophen 500 Mg Tablet PO 1,000 mg Q6H PRN Administration Mild Pain (1-3) or Fever Albuterol 2.5 mg 03/02/23 03:22 03/02/23 08:36 Albuterol Sulfate Neb 2.5 Mg/3 Ml Inh INHALATION 2.5 mg Q6H PRN Administration Dyspnea Amlodipine Besylate 10 mg 03/02/23 09:00 03/06/23 08:18 Amlodipine Besylate 5 Mg Tablet PO 10 mg DAILY RUSTY Administration Diphenhydramine HCl 25 mg 03/02/23 21:00 03/05/23 20:48 Diphenhydramine Hcl Cap 25 Mg Capsule PO 25 mg HS RUSTY Administration Docusate Sodium 100 mg 03/04/23 21:00 03/06/23 08:18 Docusate Sodium 100 Mg Capsule PO 100 mg Q12HR RUSTY Administration Ergocalciferol 50,000 units 03/02/23 09:00 03/02/23 09:05 Ergocalciferol 50,000 Units Capsule PO 50,000 units Fr@0900 RUSTY Administration Fluticasone Propionate 2 spray 03/02/23 09:00 03/06/23 08:41 Fluticasone Propionate 0.05% Na Spr 16 Gm Btl (*Bkc) NASAL 2 spray DAILY RUSTY Administration Folic Acid 1 mg 03/05/23 06:30 03/06/23 05:56 Folic Acid 1 Mg Tablet PO 1 mg DAILY@0630 RUSTY Administration Furosemide 40 mg 03/04/23 15:20 03/06/23 08:19 Furos
[2023-03-06] MEDS: SILVER NITRATE 1 EA BANDAGE (AQUACEL-AG)(*BKC) 1 EACH TOPICAL (13:00)
== END 2023-03-06 13:20 | disposition home or self-care (01) | DRG 315 ==
LOC: ANHED 21:43 → ANH3MEDSUR 03-02 02:01
PROVIDERS: Surgery; Admitting Provider Internal Medicine; Emergency Provider Emergency Medicine; PCP Student in an Organized Health Care Education/Training Program; Visit Provider Nurse Practitioner
PROC: 0JPT0WZ Removal of Totally Implantable Vascular Access Device from Trunk Subcutaneous Tissue and Fascia, Open Approach (ICD-10-PCS; CPT 36589; principal; 2023-03-02 16:00)
DX: T80.219A Unspecified infection due to central venous catheter, initial encounter (principal); D83.9 Common variable immunodeficiency, unspecified; R78.81 Bacteremia; I10 Essential (primary) hypertension; I73.00 Raynaud's syndrome without gangrene; J44.9 Chronic obstructive pulmonary disease, unspecified; B95.61 Methicillin susceptible Staphylococcus aureus infection as the cause of diseases classified elsewhere; E78.5 Hyperlipidemia, unspecified; E28.2 Polycystic ovarian syndrome; K58.9 Irritable bowel syndrome, unspecified; K21.9 Gastro-esophageal reflux disease without esophagitis; M19.90 Unspecified osteoarthritis, unspecified site; M79.7 Fibromyalgia; G89.29 Other chronic pain; G62.9 Polyneuropathy, unspecified; R91.1 Solitary pulmonary nodule; F41.9 Anxiety disorder, unspecified; F32.A Depression, unspecified; Z86.711 Personal history of pulmonary embolism; Z79.01 Long term (current) use of anticoagulants; Z86.718 Personal history of other venous thrombosis and embolism; Z79.891 Long term (current) use of opiate analgesic
CPT/HCPCS: 36415; 70490; 71046; 71250; 80048; 80053; 81003; 83605; 83735; 84484; 85025; 85027; 85610; 85730; 87040; 87070; 87075; 87147; 87181; 87186; 87205; 93005; 93306; 94640; 96365; 96367; 99285; A9270; J0131; J0690; J0696; J1100; J1170; J2250; J2405; J2543; J2704; J3010; J7030; J7120

== ENCOUNTER 2023-04-06 08:14 | Outpatient (CLI) | payer MEDICARE, OTHER, SELFPAY ==
[2023-04-06 09:16] LABS: INR 1.6; Prothrombin Time 20.1 Seconds (11.1-14.7)
[2023-04-06 09:17] LABS: Partial Thromboplastin Time 38.7 SECONDS (22.3-36.8)
[2023-04-10 13:52] LABS: Theophylline 7.2 mg/L (10.0-20.0)
== END 2023-04-06 08:15 | disposition home or self-care (01) ==
LOC: ANHSURGERY 08:18
PROVIDERS: Anesthesiology; PCP Student in an Organized Health Care Education/Training Program; Visit Provider Surgery
DX: T80.219A Unspecified infection due to central venous catheter, initial encounter (principal); Z51.81 Encounter for therapeutic drug level monitoring
CPT/HCPCS: 36415; 80198; 85610; 85730

== ENCOUNTER 2023-04-11 07:05 | Day surgery (SDC) | payer MEDICARE, OTHER, SELFPAY ==
[2023-04-04 10:15] VITALS: BMI 38.4
--- NOTE | 2023-04-04 10:35 | PC.NURSE ---
PRE-OP INSTRUCTIONS, PLEASE READ CAREFULLY Report to the Outpatient Waiting Room, entrance under the green pavilion located off [facility], at time _0630_ on date _04/11/23_. Planned Procedure Time: _0830_. Time changes happen often and if your time is changed the preop area will call you the afternoon before. - You and your visitor will be asked to self-screen and do not enter if you have any COVID symptoms. - A mask is optional within the hospital at this time. Patients may have clear liquids (water, carbonated beverages, clear teas, apple juice) until 3 hours prior to surgery (0530 AM) with a maximum of 20 ounces. - No food from midnight until time of surgery Take the following medications with a SIP of water the morning of surgery: _AMLODIPINE, FOLIC ACID, LAMOTRIGINE, LEVOTHYROXINE, THEOPHYLLINE, INHALERS, NASAL SPRAY_ DO NOT STOP ANY OF YOUR OTHER PRESCRIPTION MEDICATIONS PRIOR TO SURGERY ?EXCEPT THE FOLLOWING Medications to discontinue per DR. MILLER __XARELTO, Date to take last dose 04/07/23__ Please no make-up, nail burmese, hairspray, perfume, deodorant, or body powder the day of surgery. No jewelry (including any body piercings) or valuables the day of surgery, leave them at home. Please take a shower or bath the night before, or the morning of, surgery with an antibacterial soap. Wear comfortable, loose fitting clothing. - Jewelry must be removed prior to entering the operating room. Rings and piercings that are not removed may be cut off. - The hospital will not accept responsibility for valuables. - Please leave all valuables, including medications, at home the day of surgery. If you are going home after surgery, a licensed pharmacy delivery driver must drive you home. - NO public transportation without another adult if you receive anesthesia. - We recommend that an adult stay with you for 24 hours following discharge. - We also recommend that you do not drive, make important decision, drink alcoholic beverages, or take any drugs that were not prescribed by your health care provider for at least 24 hours after your discharge time. Follow any additional instructions given to you from your surgeon. If you or anyone in your household have experienced Covid symptoms in the past week, please notify your surgeon or the nurse liaison at the phone number below for possible testing. Telephone instructions given to _PATIENT_and asked if any additional questions and then verbalized understanding. Patient advised to call surgeon office or pre surgery nurse liaison [phone] if any additional questions.
== END 2023-04-11 07:06 | disposition home or self-care (01) ==
LOC: ANHSURGERY 05-04 14:06
PROVIDERS: PCP Student in an Organized Health Care Education/Training Program; Visit Provider Surgery
DX: T80.219A Unspecified infection due to central venous catheter, initial encounter (principal); Y83.8 Other surgical procedures as the cause of abnormal reaction of the patient, or of later complication, without mention of misadventure at the time of the procedure; Z53.8 Procedure and treatment not carried out for other reasons
CPT/HCPCS: 99199

== ENCOUNTER → 2023-05-02 13:58 | Outpatient (CLI) | payer MEDICARE, OTHER, SELFPAY ==
--- NOTE | ~2023-05-02 | US_ITS ---
EXAMINATION: US transvaginal DATE: 05/02/2023 14:25 INDICATION: Postmenopausal bleeding. TECHNIQUE: Multiple transvaginal sonographic images of the pelvis were obtained. COMPARISON: None. FINDINGS: The uterus measures 4.7 x 2.1 x 3.3 cm. There is physiologic free fluid in the pelvis. The endometria l complex measures 7 mm in thickness. The right ovary measures 3.5 x 2.5 x 3.2 cm. The left ovary no sures 1.8 x 1.0 x 1.2 cm. IMPRESSION: 1. Thickened endometrial complex. The differential diagnosis includes endometrial hyperplasia, polyp, and carcinoma. Biopsy is recommended. Reviewed, dictated and finalized at location A. IMPRESSION: 1. Thickened endometrial complex. The differential diagnosis includes endometri al hyperplasia, polyp, and carcinoma. Biopsy is recommended.
== END ==
PROVIDERS: PCP Student in an Organized Health Care Education/Training Program; Visit Provider Nurse Practitioner
DX: N95.0 Postmenopausal bleeding (principal); R93.89 Abnormal findings on diagnostic imaging of other specified body structures
CPT/HCPCS: 76830

== ENCOUNTER 2023-05-09 00:27 | Day surgery (SDC) | payer MEDICARE, OTHER, SELFPAY ==
--- NOTE | 2023-05-02 15:40 | PC.NURSE ---
Report to the Outpatient Waiting Room, entrance under the green pavilion located off [facility], at time _1230__ on date _05/09/23___. Planned Procedure Time: __1430 . Time changes happen often and if your time is changed the preop area will call you the afternoon before. - You and your visitor will be asked to self-screen and do not enter if you have any COVID symptoms. - A mask is optional within the hospital at this time. Patients may have clear liquids (water, carbonated beverages, clear teas, apple juice) until 3 hours prior to surgery with a maximum of 20 ounces. - No food from midnight until time of surgery Take the following medications with a SIP of water the morning of surgery: AMLODIPINE, FOLIC ACID, LAMICTAL, THYROID MED, THEOPHYLLINE, INHALERS, NASAL SPRAY DO NOT STOP ANY OF YOUR OTHER PRESCRIPTION MEDICATIONS PRIOR TO SURGERY ?EXCEPT THE FOLLOWING Medications to discontinue per physician ___BEBE CABRERA ___ Date to take last dose__05/06/23____ Please no make-up, nail azerbaijani, hairspray, perfume, deodorant, or body powder the day of surgery. No jewelry (including any body piercings) or valuables the day of surgery, leave them at home. Please take a shower or bath the night before, or the morning of, surgery with an antibacterial soap. Wear comfortable, loose fitting clothing. - Jewelry must be removed prior to entering the operating room. Rings and piercings that are not removed may be cut off. - The hospital will not accept responsibility for valuables. - Please leave all valuables, including medications, at home the day of surgery. If you are going home after surgery, a licensed mobile lounge driver must drive you home. - NO public transportation without another adult if you receive anesthesia. - We recommend that an adult stay with you for 24 hours following discharge. - We also recommend that you do not drive, make important decision, drink alcoholic beverages, or take any drugs that were not prescribed by your health care provider for at least 24 hours after your discharge time. Follow any additional instructions given to you from your surgeon. If you or anyone in your household have experienced Covid symptoms in the past week, please notify your surgeon or the nurse liaison at the phone number below for possible testing. Telephone instructions given to __AMBER_and asked if any additional questions and then verbalized understanding. Patient advised to call surgeon office or pre surgery nurse liaison [phone] if any additional questions.
--- NOTE | 2023-05-08 17:19 | PM.SD2 ---
Same Day Admit/Disch: HPI History of Present Illness Chief complaint: Requests Port-A-Cath Narrative: Tracey Lambert is a 52 year old female whom I saw her early in February for an infected Port-A-Cath in the right subclavian position. She has a history of common variable immunodeficiency disorder. This Port-A-Cath was placed at another facility several weeks prior to her presentation here. Port-A-Cath was removed and she was treated with antibiotics. I saw her in follow-up and the wound has gone on to heal. She receives IV immunoglobulin on a regular basis and has been requested by her administering physician, Dr. Quezada, to have a Port-A-Cath placed again for ease of administration. I spoke with Dr. Quezada who advised having the new Port-A-Cath placed within 3-4 days of IVIG administration for minimal risk of postoperative infection. She is taken to surgery now as an outpatient for elective placement of a new left subclavian Port-A-Cath under anesthesia. [facility] Past Medical History Medical History Anxiety Arthritis Arthropathy of right knee Asthma Colitis Dx 03 September 2019 Common variable immunodeficiency COPD (chronic obstructive pulmonary disease) Depression DVT (deep venous thrombosis) Emphysema of lung Fibromyalgia Foot fracture, left GERD (gastroesophageal reflux disease) GI bleed HLD (hyperlipidemia) HTN (hypertension) IgM deficiency Irritable bowel PCOS (polycystic ovarian syndrome) Pulmonary embolism Raynauds syndrome Surgical History Surgical History H/O dilation and curettage H/O laminectomy H/O sinus surgery History of endometrial ablation History of incision and drainage Removal of right subclavian port-a-cath and I&D of right chest abscess on 03/02/23. History of knee surgery x 2 right x 1 left History of ventral hernia repair (12/28/20) Hx of appendectomy Hx of tonsillectomy S/P laparoscopic-assisted sigmoidectomy (~03/2020) Performed due to: Stricture resulting in right ventral hernia Family History Family History Father Hypertension Diabetes mellitus Mother Hypertension Acute myocardial infarction Heart disease Rheumatoid arthritis Sibling Hypertension Other Family history of gout Family history of obesity Family history unknown Social History Social History Smoking status: Never smoker Second hand tobacco smoke exposure: No Alcohol intake: current Drinks per week: 1 Alcohol use details: FEW A MONTH Substance use: never Substance use type: does not use Lack of Transportation: No Lack of Food: Never True Current Housing: I Have Housing Concerned About Future Housing: No Difficulty Paying Gas/Electric Bills: No Difficulty Paying for Meds: No Currently Unemployed: No Education: Associate Degree Difficulty w/ Childcare or Family Care: No Living arrangements: with family Gender identity (if verbalized by the patient): Female Spiritual care concerns: No Same Day Admit/Disch: Med Pre-admit Medications Home Medications Medication Instructions Recorded Confirmed Type albuterol sulfate 2.5 mg/3 mL 2.5 mg inhalation Q6H PRN Dyspnea 09/03/19 05/09/23 History (0.083 %) solution for nebulization amlodipine 10 mg tablet 10 mg PO DAILY 09/03/19 05/09/23 History epinephrine 0.3 mg/0.3 mL 0.3 mg subcut DIRECTED PRN 09/03/19 05/09/23 History injection, auto-injector Anaphylaxis ergocalciferol (vitamin D2) 1,250 50,000 unit PO WEEKLY 09/03/19 05/09/23 History mcg (50,000 unit) capsule fluticasone propionate 50 50 mcg intranasal DAILY 09/03/19 05/09/23 History mcg/actuation nasal spray,suspension furosemide 40 mg tablet 40 mg PO DAILY 09/03/19 05/09/23 History guaifenesin 600 mg tablet, 600 mg PO DAILY 09/03/19
--- NOTE | ~2023-05-09 | XR_ITS ---
EXAMINATION: XR fl guide central line place DATE: 05/09/2023 11:07 INDICATION: Left subclavian port catheter insertion TECHNIQUE: Single frontal fluoroscopic image of the central chest was obtained during procedure perfo rmed by Dr. Lazar. Radiologist was not present for the imaging or procedure. The amount of fluoroscopy time used during this procedure was 1.2 minutes. COMPARISON: 03/01/2023 FINDINGS: New left subclavian central venous port catheter with distal tip at the caudal superior vena cava. Vi sualized portions of the lungs are clear. Heart size is normal. IMPRESSION: 1. Left subclavian central venous catheter with distal tip at the caudal superior vena cava. Reviewed, dictated and finalized at location A. IMPRESSION: 1. Left subclavian central venous catheter with distal tip at the caudal superi or vena cava.
--- NOTE | ~2023-05-09 | XR_ITS ---
EXAMINATION: XR chest port-a-cath/central DATE: 05/09/2023 11:18 INDICATION: Port catheter insertion TECHNIQUE: frontal view of the chest was obtained. COMPARISON: Chest radiograph dated 03/01/2023 FINDINGS: New left subclavian central venous port catheter with distal tip at the caudal superior vena cava. Ch ronic linear discoid atelectasis/scarring at the right middle lobe. No other airspace opacities, pulm onary edema, pleural effusion or pneumothorax. The cardiomediastinal silhouette is normal. IMPRESSION: 1. Left subclavian central venous port catheter tip in the caudal superior vena cava. 2. Chronic atelectasis/scarring at the right middle lobe. Reviewed, dictated and finalized at location A.
[2023-05-09 09:26] VITALS: BP 139/77; PULSE 79; RESP 20; TEMP 36.9; O2SAT 96
--- NOTE | 2023-05-09 09:33 | WPDANESEPPF ---
Anes - Initial Pre Proc Eval Procedure: Operation Date: 05/09/23 14:30 Proposed Procedures p Insertion Left Subclavian Shanelle Cath - Kelechi Lazar MD Date/Time: 05/09/23 09:33 Surgeon: Kelechi Lazar MD Pre Op Diagnosis: Requests Port-A-Cath Patient Data Age: 52 Gender: F Height: 1.7 m Weight: Allergies Allergy/AdvReac Type Severity Reaction Status Date / Time shellfish derived Allergy Severe Swelling Verified 05/02/23 15:32 of Lip/Tongue/Throat aztreonam Allergy Intermediate RASH Verified 05/02/23 15:32 sulfamethoxazole Allergy Intermediate HIVES Verified 05/02/23 15:32 adhesive Allergy Unknown rash Verified 05/02/23 15:32 aspirin Allergy Unknown anaphylaxis Verified 05/02/23 15:32 ciprofloxacin Allergy Unknown Hives Verified 05/02/23 15:32 ibuprofen Allergy Unknown Anaphylaxis Verified 05/02/23 15:32 latex Allergy Unknown Dyspnea Verified 05/02/23 15:32 nifedipine Allergy Unknown Urticaria Verified 05/02/23 15:32 NSAIDS (Non-Steroidal Allergy Unknown Anaphylactic Verified 05/02/23 15:32 Anti-Inflamma Shock sulfamethizole Allergy Unknown Urticaria Verified 05/02/23 15:32 terbinafine Allergy Unknown Urticaria Verified 05/02/23 15:32 trimethoprim Allergy Unknown Hives Verified 05/02/23 15:32 vancomycin Allergy Unknown Rash Verified 05/02/23 15:32 Home Medications Medication Instructions Recorded Confirmed Type albuterol sulfate 2.5 mg/3 mL 2.5 mg inhalation Q6H PRN Dyspnea 09/03/19 05/02/23 History (0.083 %) solution for nebulization amlodipine 10 mg tablet 10 mg PO DAILY 09/03/19 05/02/23 History epinephrine 0.3 mg/0.3 mL 0.3 mg subcut DIRECTED PRN 09/03/19 05/02/23 History injection, auto-injector Anaphylaxis ergocalciferol (vitamin D2) 1,250 50,000 unit PO WEEKLY 09/03/19 05/02/23 History mcg (50,000 unit) capsule fluticasone propionate 50 50 mcg intranasal DAILY 09/03/19 05/02/23 History mcg/actuation nasal spray,suspension furosemide 40 mg tablet 40 mg PO DAILY 09/03/19 05/02/23 History guaifenesin 600 mg tablet, 600 mg PO DAILY 09/03/19 05/02/23 History extended release 12 hr (Mucinex) lamotrigine 200 mg tablet 200 mg PO BID 09/03/19 05/02/23 History omeprazole 20 mg capsule,delayed 40 mg PO BID 09/03/19 05/02/23 History release ondansetron HCl 4 mg tablet 4 mg PO Q8H PRN Nausea And Vomiting 09/03/19 05/02/23 History rivaroxaban 20 mg tablet (Xarelto) 20 mg PO DAILY 09/03/19 05/02/23 History theophylline 300 mg 300 mg PO BID 09/03/19 05/02/23 History tablet,extended release,12 hr tiotropium bromide 18 mcg capsule 18 mcg inhalation DAILY 09/03/19 05/02/23 History with inhalation device (Spiriva with HandiHaler) mometasone-formoterol HFA 200 2 puff inhalation BID 11/03/19 05/02/23 History mcg-5 mcg/actuation aerosol inhaler (Dulera) fexofenadine 180 mg tablet 180 mg PO DAILY 11/04/20 05/02/23 History ramipril 5 mg capsule (Altace) 5 mg PO BID 11/04/20 05/02/23 History diphenhydramine HCl 25 mg capsule 25 mg PO HS PRN SLEEEP 01/25/21 05/02/23 History (Allergy (diphenhydramine)) fluticasone propionate 110 1 puff inhalation BID 01/25/21 05/02/23 History mcg/actuation HFA aerosol inhaler (Flovent HFA) hydrocodone 5 mg-acetaminophen 325 1 tablet PO Q4H PRN Pain (Scale 01/25/21 05/02/23 History mg tablet Score 4-6) folic acid 1 mg tablet 1 mg PO DAILY 03/02/23 05/02/23 History levothyroxine 25 mcg tablet 50 mcg PO DAILY 03/02/23 05/02/23 History (Unithroid) Ivig See Rx Instructions .Route .COMPLEX 04/04/23 05/02/23 History liothyronine 5 mcg tablet 5 mcg PO BID 05/02/23 05/02/23 History Patient hx anesthesia problems: none Family hx anesthesia problems: none Results Review: All pre-operative results and documents have been reviewed as part of the pre-operative evaluation. [facility] Past Medical History Medical History Anxiety Arthritis Arthropathy of right knee Asthma C
[2023-05-09] MEDS: LACTATED RINGERS 1,000 ML 30 ML IV CONT (09:40)
--- NOTE | 2023-05-09 09:49 | WPDHPUPDATE1 ---
History and Physical Update Update Date/Time: 05/09/23 09:49 History and Physical has been reviewed, including an updated exam of the patient. There are NO changes in the patient's condition. Risks, benefits, and alternatives have been discussed and questions answered. Patient agrees to proceed with procedure.
[2023-05-09 10:00] LABS: INR 0.9; Prothrombin Time 13.1 Seconds (11.1-14.7)
[2023-05-09 10:01] LABS: Partial Thromboplastin Time 27.4 SECONDS (22.3-36.8)
[2023-05-09] MEDS: ceFAZolin 2 GM/D5W 50 ML 2 GM/50 ML BAG IVPB (10:06)
[2023-05-09] MEDS: HEPARIN SODIUM 5,000 UNITS/ML VIAL 1000 UNITS IRRIGATION (10:32)
[2023-05-09 11:10] VITALS: BP 128/73; PULSE 84; RESP 16; O2SAT 98
--- NOTE | 2023-05-09 11:12 | P.OP_ITS ---
Procedure Note - Detailed Date of Procedure 05/09/23 Pre-op Diagnosis Common variable immunodeficiency disorder, inadequate venous access Post-op Diagnosis Same Procedure Performed Placement left subclavian vortex Port-A-Cath under fluoroscopy Surgeon Kelechi Lazar MD [employer] Marline Chambers [facility] Anesthesia General and Local (0.5% Marcaine with epinephrine) Indications Patient is a 52-year-old woman with CVID who gets monthly intravenous immunoglobulin infusions. She had a right subclavian Port-A-Cath that she was using for this but it became infected and had to be removed. She is taken to surgery now for placement of a left subclavian Port-A-Cath to be used for the infusions. She just received her IV immunoglobulin 4 days ago. Findings None significant, portable chest a ray by my review shows tip of the catheter in the distal SVC right atrial junction. Description of Procedure Patient was taken to surgery and anesthesia was introduced. The left subclavian and left neck areas were prepped and draped. The proposed incision was marked on the skin. Local was infiltrated in the area of the anticipated incision and the deeper subcutaneous tissues. Incision was made dissection was carried down through the subcutaneous. We continued all the way to the pectoralis major fascia. We then dissected under the pectoralis major fascia creating a subfascial pocket. Additional local was infiltrated in the area of the subcutaneous between the skin and the pocket. Some of the subcutaneous overlying the pocket was excised so that the port would be easier to palpate and cannulate. Cautery was used for hemostasis. Once the pocket was satisfactory, we infiltrated local under the left subclavian vein. It took a few different punctures but eventually, with the patient in Trendelenburg, I was able to cannulate the left subclavian vein and pass a guidewire into the superior vena cava. Patient was then placed back in a level supine position. We verified the guidewire was in the superior vena cava. I measured the length of Port-A-Cath that would be necessary. I cut the Port-A-Cath to the appropriate length. An introducer and sheath were then passed over the guidewire. The guidewire and introducer were removed. The Port-A-Cath was passed through the sheath and into the superior vena cava. We verified the position using fluoroscopy. The sheath was then removed. The Port-A-Cath tip was in the distal SVC. It appeared to be in the appropriate position. I checked the Port-A-Cath several times and it aspirated blood easily and flushed well with heparin. I then sutured the Port-A-Cath to the pectoralis major fascia with 4 different 3-0 silk suture. Port-A-Cath reservoir was easily palpable through the overlying subcutaneous and skin. I then closed the wound with layered closure of running 2-0 Vicryl. There were 2 layers of subcutaneous closure. The skin was then closed with running 4-0 Monocryl skin suture. Wound was dressed with Exofin surgical adhesive. Patient was taken to outpatient surgery in good condition. Sponge and needle counts were correct x2. Per my review of the chest x-ray following the procedure there was no pneumothorax and the Port-A-Cath appeared to be in good position. Implants Vortex Port-A-Cath Estimated Blood Loss -5 Drains No Packing No Pathology None sent Complications No immediate complications Condition Stable Disposition Same day [facility] Billing Surgery - Charge Forward: Surgery Billing (Placement left subclavian vortex Port-A-Cath under fluoroscopy)
[2023-05-09] MEDS: fentaNYL CITRATE INJ (*CRX) 100 MCG/2 ML VIAL 25 MCG IV PUSH ×2 (11:20→11:23)
[2023-05-09] MEDS: oxyCODONE HCL (*CRX) 5 MG TAB IR PO (11:31)
[2023-05-09 11:40] VITALS: BP 125/67; PULSE 83; RESP 20
[2023-05-09 12:10] VITALS: BP 109/77; PULSE 74; RESP 20
== END 2023-05-09 12:13 | disposition home or self-care (01) ==
PROVIDERS: PCP Student in an Organized Health Care Education/Training Program; Visit Provider Surgery
PROC: (CPT 36561; principal; 2023-05-09 14:30)
DX: D83.9 Common variable immunodeficiency, unspecified (principal); I87.2 Venous insufficiency (chronic) (peripheral); I10 Essential (primary) hypertension; E78.5 Hyperlipidemia, unspecified; K21.9 Gastro-esophageal reflux disease without esophagitis; M79.7 Fibromyalgia; F41.9 Anxiety disorder, unspecified; F32.A Depression, unspecified; J43.9 Emphysema, unspecified; Z86.711 Personal history of pulmonary embolism; Z86.718 Personal history of other venous thrombosis and embolism; Z90.49 Acquired absence of other specified parts of digestive tract; Z79.51 Long term (current) use of inhaled steroids; Z79.01 Long term (current) use of anticoagulants; Z79.891 Long term (current) use of opiate analgesic; E66.9 Obesity, unspecified; Z68.38 Body mass index [BMI] 38.0-38.9, adult
CPT/HCPCS: 36561; 36415; 77001; 85610; 85730; A9270; C1788; J0690; J1644; J2250; J2704; J3010; J7030; J7120

== ENCOUNTER 2023-06-13 10:17 | Outpatient (CLI) | payer MEDICARE, OTHER, SELFPAY ==
[2023-06-13 11:17] LABS: Anion Gap 12 mmol/L (8-16); Blood Urea Nitrogen 14 mg/dL (7-17); Calcium 9.6 mg/dL (8.4-10.2); Carbon Dioxide 26 mmol/L (22-30); Chloride 102 mmol/L (98-107); Estimated Glomerular Filt Rate > 60; Glucose 92 mg/dL (65-110); Potassium 3.6 mmol/L (3.4-5.0); Sodium 140 mmol/L (137-145)
[2023-06-15 14:57] LABS: Theophylline 7.1 mg/L (10.0-20.0)
== END 2023-06-13 10:18 | disposition home or self-care (01) ==
PROVIDERS: Anesthesiology; PCP Student in an Organized Health Care Education/Training Program; Visit Provider Obstetrics & Gynecology Gynecology
DX: Z01.818 Encounter for other preprocedural examination (principal); J44.9 Chronic obstructive pulmonary disease, unspecified; I10 Essential (primary) hypertension
CPT/HCPCS: 36415; 80048; 80198

== ENCOUNTER 2023-06-18 00:44 | Day surgery (SDC) | payer MEDICARE, OTHER, SELFPAY ==
--- NOTE | 2023-06-12 16:04 | SUR.PREOP ---
Report to the Outpatient Waiting Room, entrance under the green pavilion located off [facility], at time __1045 on date _06/18/23 . Planned Procedure Time: __1245 . Time changes happen often and if your time is changed the preop area will call you the afternoon before. - You and your visitor will be asked to self-screen and do not enter if you have any COVID symptoms. - A mask is optional within the hospital at this time. Patients may have clear liquids (water, carbonated beverages, clear teas, apple juice) until 3 hours prior to surgery with a maximum of 20 ounces. - No food from midnight until time of surgery - Infants may have breast milk until 4 hours before surgery, infant formula 6 hours prior to surgery. - Children will be allowed to drink immediately following surgery. If applicable, please bring a bottle or sippy cup to assist with drinking. Juice, water, soda, and popsicles are readily available. For infants on formula, please bring formula the day of surgery. Pacifiers are allowed. Take the following medications with a SIP of water the morning of surgery: SPIRIVA,FLOVENT,DULERA INHALERS,AMLODIPINE,LIOTHYRONINE,THEOPHYLINE, BRING ALBUTEROL INHALER DO NOT STOP ANY OF YOUR OTHER PRESCRIPTION MEDICATIONS PRIOR TO SURGERY ?EXCEPT THE FOLLOWING Medications to discontinue per physician _VITAMIN SUPPLEMENTS X 3DAYS,XARELTO X 4 DAYS Date to take last dose Please no make-up, nail guinean, hairspray, perfume, deodorant, or body powder the day of surgery. No jewelry (including any body piercings) or valuables the day of surgery, leave them at home. Please take a shower or bath the night before, or the morning of, surgery with an antibacterial soap. Wear comfortable, loose fitting clothing. Children are encouraged to wear pajamas. - Jewelry must be removed prior to entering the operating room. Rings and piercings that are not removed may be cut off. - The hospital will not accept responsibility for valuables. - Please leave all valuables, including medications, at home the day of surgery. If you are going home after surgery, a licensed stud driver must drive you home. - NO public transportation without another adult if you receive anesthesia. - We recommend that an adult stay with you for 24 hours following discharge. - We also recommend that you do not drive, make important decision, drink alcoholic beverages, or take any drugs that were not prescribed by your health care provider for at least 24 hours after your discharge time. For Pediatric surgeries, we recommend two adults accompany the child home. Follow any additional instructions given to you from your surgeon. If you or anyone in your household have experienced Covid symptoms in the past week, please notify your surgeon or the nurse liaison at the phone number below for possible testing. Telephone instructions given to _FEDERICO TORRES and asked if any additional questions and then verbalized understanding. Patient advised to call surgeon office or pre surgery nurse liaison [phone] if any additional questions.
--- NOTE | 2023-06-18 09:45 | WPDHPUPDATE1 ---
History and Physical Update Update Date/Time: 06/18/23 09:45 History and Physical has been reviewed, including an updated exam of the patient. There are NO changes in the patient's condition. Risks, benefits, and alternatives have been discussed and questions answered. Patient agrees to proceed with procedure.
--- NOTE | 2023-06-18 09:45 | PM.HPGS ---
History of Present Illness History of Present Illness Consent: Risks, benefits, and alternatives have been discussed and questions answered. Patient agrees to proceed with procedure. Chief complaint: postmenopausal bleeding Narrative: Tracey Lambert is a 52 year old female with an episode of postmenopausal bleeding. Pelvic ultrasound was performed and revealed a thickened endometrium 7mm. The uterus was noted to be quite small at 4.7cm length. It was recommended to undergo D&C hysteroscopy. The patient was initially scheduled, however, she was admitted with a collapsed lung on 05/18. The patient has been cleared by the clinical research coordinator to proceed. Risks of infection, bleeding, and perforation are reviewed. Due to the patient's prior endometrial ablation she was given Cytotec prior to the procedure. Possible pathology was also discussed. Patient voices understanding and agrees to proceed. Review of Systems Review of Systems: not repeated day of surgery; patient states no changes in status PMFSH Past Medical History Medical History (Updated 06/18/23 @ 09:50 by Ketty Hinds MD) Anxiety Arthritis Arthropathy of right knee Asthma Colitis Dx 03 September 2019 Common variable immunodeficiency COPD (chronic obstructive pulmonary disease) Depression DVT (deep venous thrombosis) Emphysema of lung Fibromyalgia Foot fracture, left GERD (gastroesophageal reflux disease) GI bleed HLD (hyperlipidemia) HTN (hypertension) IgM deficiency Irritable bowel PCOS (polycystic ovarian syndrome) Pulmonary embolism Raynauds syndrome Surgical History Surgical History (Updated 06/18/23 @ 09:49 by Ketty Hinds MD) H/O dilation and curettage H/O laminectomy H/O sinus surgery History of endometrial ablation History of hysteroscopy October of 2021 History of incision and drainage Removal of right subclavian port-a-cath and I&D of right chest abscess on 03/02/23. History of knee surgery x 2 right x 1 left History of ventral hernia repair (12/28/20) Hx of appendectomy Hx of tonsillectomy S/P laparoscopic-assisted sigmoidectomy (~03/2020) Performed due to: Stricture resulting in right ventral hernia Family History Family History Father Hypertension Diabetes mellitus Mother Hypertension Acute myocardial infarction Heart disease Rheumatoid arthritis Sibling Hypertension Other Family history of gout Family history of obesity Family history unknown Social History Social History Smoking status: Never smoker Second hand tobacco smoke exposure: No Alcohol intake: current Drinks per week: 3 Alcohol use details: FEW A MONTH Substance use: never Substance use type: does not use Lack of Transportation: No Lack of Food: Never True Current Housing: I Have Housing Concerned About Future Housing: No Difficulty Paying Gas/Electric Bills: No Difficulty Paying for Meds: No Currently Unemployed: No Education: Associate Degree Difficulty w/ Childcare or Family Care: No Living arrangements: with family Gender identity (if verbalized by the patient): Female Spiritual care concerns: No Meds Home Medications and Allergies Home Medications Medication Instructions Recorded Confirmed Type albuterol sulfate 2.5 mg/3 mL 2.5 mg inhalation Q6H PRN Dyspnea 09/03/19 06/12/23 History (0.083 %) solution for nebulization amlodipine 10 mg tablet 10 mg PO DAILY 09/03/19 06/12/23 History epinephrine 0.3 mg/0.3 mL 0.3 mg subcut DIRECTED PRN 09/03/19 06/12/23 History injection, auto-injector Anaphylaxis ergocalciferol (vitamin D2) 1,250 50,000 unit PO WEEKLY 09/03/19 06/12/23 History mcg (50,000 unit) capsule fluticasone propionate 50 50 mcg intranasal DAILY 09/03/19 06/12/23 History mcg/actuation nasal spray,suspension furosemide 40 mg tablet
[2023-06-18 10:54] VITALS: BP 136/80; PULSE 81; RESP 18; TEMP 36.2; O2SAT 100
--- NOTE | 2023-06-18 11:49 | WPDANESEPPF ---
Anes - Initial Pre Proc Eval Procedure: Operation Date: 06/18/23 12:45 Proposed Procedures p Hysteroscopy Dilation and Curettage - Ketty Hinds MD Date/Time: 06/18/23 11:49 Surgeon: Ketty Hinds MD Pre Op Diagnosis: postmenopausal bleeding Patient Data Age: 52 Gender: F Height: 1.7 m Weight: 114.3 kg Last Vital Signs Temp 36.2 C L 06/18/23 10:54 Pulse 81 06/18/23 10:54 Resp 18 06/18/23 10:54 BP 136/80 06/18/23 10:54 Pulse Ox 100 06/18/23 10:54 O2 Del Method Room Air 06/18/23 10:54 Allergies Allergy/AdvReac Type Severity Reaction Status Date / Time aspirin Allergy Severe anaphylaxis Verified 06/18/23 11:32 aztreonam Allergy Severe RASH Verified 06/18/23 11:32 ibuprofen Allergy Severe Anaphylaxis Verified 06/18/23 11:32 NSAIDS (Non-Steroidal Allergy Severe Anaphylactic Verified 06/18/23 11:32 Anti-Inflamma Shock shellfish derived Allergy Severe Swelling Verified 06/18/23 11:32 of Lip/Tongue/Throat adhesive Allergy Intermediate rash Verified 06/18/23 11:32 ciprofloxacin Allergy Intermediate Hives Verified 06/18/23 11:32 latex Allergy Intermediate Dyspnea Verified 06/18/23 11:32 nifedipine Allergy Intermediate Urticaria Verified 06/18/23 11:32 sulfamethizole Allergy Intermediate Urticaria Verified 06/18/23 11:32 terbinafine Allergy Intermediate Urticaria Verified 06/18/23 11:32 trimethoprim Allergy Intermediate Hives Verified 06/18/23 11:32 vancomycin Allergy Intermediate Rash Verified 06/18/23 11:32 Home Medications Medication Instructions Recorded Confirmed Type albuterol sulfate 2.5 mg/3 mL 2.5 mg inhalation Q6H PRN Dyspnea 09/03/19 06/18/23 History (0.083 %) solution for nebulization amlodipine 10 mg tablet 10 mg PO DAILY 09/03/19 06/18/23 History epinephrine 0.3 mg/0.3 mL 0.3 mg subcut DIRECTED PRN 09/03/19 06/18/23 History injection, auto-injector Anaphylaxis ergocalciferol (vitamin D2) 1,250 50,000 unit PO WEEKLY 09/03/19 06/18/23 History mcg (50,000 unit) capsule fluticasone propionate 50 50 mcg intranasal DAILY 09/03/19 06/18/23 History mcg/actuation nasal spray,suspension furosemide 40 mg tablet 40 mg PO DAILY 09/03/19 06/18/23 History guaifenesin 600 mg tablet, 600 mg PO DAILY 09/03/19 06/18/23 History extended release 12 hr (Mucinex) lamotrigine 200 mg tablet 200 mg PO BID 09/03/19 06/18/23 History omeprazole 20 mg capsule,delayed 40 mg PO BID 09/03/19 06/18/23 History release ondansetron HCl 4 mg tablet 4 mg PO Q8H PRN Nausea And Vomiting 09/03/19 06/18/23 History rivaroxaban 20 mg tablet (Xarelto) 20 mg PO DAILY 09/03/19 06/18/23 History theophylline 300 mg 300 mg PO BID 09/03/19 06/18/23 History tablet,extended release,12 hr tiotropium bromide 18 mcg capsule 18 mcg inhalation DAILY 09/03/19 06/18/23 History with inhalation device (Spiriva with HandiHaler) mometasone-formoterol HFA 200 2 puff inhalation BID 11/03/19 06/18/23 History mcg-5 mcg/actuation aerosol inhaler (Dulera) fexofenadine 180 mg tablet 180 mg PO DAILY 11/04/20 06/18/23 History ramipril 5 mg capsule (Altace) 5 mg PO BID 11/04/20 06/18/23 History diphenhydramine HCl 25 mg capsule 25 mg PO HS PRN SLEEEP 01/25/21 06/18/23 History (Allergy (diphenhydramine)) fluticasone propionate 110 1 puff inhalation BID 01/25/21 06/18/23 History mcg/actuation HFA aerosol inhaler (Flovent HFA) hydrocodone 5 mg-acetaminophen 325 1 tablet PO Q4H PRN Pain (Scale 01/25/21 06/18/23 History mg tablet Score 4-6) folic acid 1 mg tablet 1 mg PO DAILY 03/02/23 06/18/23 History levothyroxine 25 mcg tablet 50 mcg PO DAILY 03/02/23 06/18/23 History (Unithroid) Ivig See Rx Instructions .Route .COMPLEX 04/04/23 06/18/23 History liothyronine 5 mcg tablet 5 mcg PO BID 05/02/23 06/18/23 History Patient hx anesthesia problems: none Family hx anesthesia problems: none Results Review: All pre-operative results and documents have been reviewed as pa
[2023-06-18 13:06] VITALS: BP 140/79; PULSE 80; RESP 14; O2SAT 98
[2023-06-18] MEDS: LACTATED RINGERS 1,000 ML 30 ML IV CONT (13:06)
--- NOTE | 2023-06-18 13:08 | W.PM.PROC2 ---
Procedure Note - Detailed Date of Procedure 06/18/23 Pre-op Diagnosis postmenopausal bleeding Post-op Diagnosis Same Procedure Performed D&C hysteroscopy Surgeon Ketty Hinds MD Anesthesia MAC Findings cervix is very stenotic; endometrium was very scarred with no discrete lesions Description of Procedure The patient was taken to the operating room and placed under anesthesia in the dorsal lithotomy position. She was prepped and draped in the usual sterile fashion. [place] speculum was placed in the vagina and the cervix grasped on the anterior lip with a tenaculum. The cervix is stenotic at approximately half a cm into the cervical canal. The os Finders are used. The hysteroscope was then used to hydro dissect into the endometrial cavity. The cavity is very small and very scarred consistent with prior visualization and consistent with ultrasound. There are no lesions or thickened areas noted. The hysteroscope was removed and the sharp curette used to curette the endometrium until a good uterine cry was noted in all areas. Minimal materials obtained consistent with the visual appearance. All instruments are removed. Sponge, needle, and instrument counts are correct per the OR staff. Patient is awakened from anesthesia and taken to recovery in stable condition. Estimated Blood Loss 5 Drains No Packing No Pathology Yes ( Endometrial curettings) Complications No immediate complications Condition Stable Disposition PACU
[2023-06-18] MEDS: oxyCODONE HCL (*CRX) 5 MG TAB IR PO (13:32)
[2023-06-18 13:35] VITALS: BP 140/79; PULSE 80; RESP 20
[2023-06-18 14:00] VITALS: BP 135/77; PULSE 73; RESP 20
== END 2023-06-18 14:08 | disposition home or self-care (01) ==
PROVIDERS: PCP Student in an Organized Health Care Education/Training Program; Visit Provider Obstetrics & Gynecology Gynecology
PROC: 0U5B8ZZ Destruction of Endometrium, Via Natural or Artificial Opening Endoscopic (ICD-10-PCS; CPT 58563; principal; 2023-06-18 12:45)
DX: N95.0 Postmenopausal bleeding (principal); I10 Essential (primary) hypertension; E78.5 Hyperlipidemia, unspecified; E28.2 Polycystic ovarian syndrome; J43.9 Emphysema, unspecified; K21.9 Gastro-esophageal reflux disease without esophagitis; M79.7 Fibromyalgia; F41.9 Anxiety disorder, unspecified; F32.A Depression, unspecified; D83.9 Common variable immunodeficiency, unspecified; I73.00 Raynaud's syndrome without gangrene; Z86.718 Personal history of other venous thrombosis and embolism; Z86.711 Personal history of pulmonary embolism; Z79.51 Long term (current) use of inhaled steroids; Z79.01 Long term (current) use of anticoagulants; E66.01 Morbid (severe) obesity due to excess calories; Z68.39 Body mass index [BMI] 39.0-39.9, adult
CPT/HCPCS: 58558; 88305; A9270; J1100; J2250; J2405; J2704; J3010; J7120

== ENCOUNTER 2023-07-05 10:05 | Outpatient (CLI) | payer MEDICARE, OTHER, SELFPAY ==
--- NOTE | ~2023-07-05 | XR_ITS ---
Clinical Indication: Vascular implant/graft PA and lateral views of the chest: Comparison: 05/09/2023 Findings: Left-sided Mediport is unchanged. There is probable discoid atelectasis or scarring at the right lung base. Lungs are otherwise clear. Cardiomediastinal silhouette is within normal limits. Malachi jefry and soft tissues are unremarkable. Impression: Stable left-sided Mediport. Discoid right basilar atelectasis or scarring, otherwise clear lungs. Reviewed, dictated and finalized at location M. Impression: Stable left-sided Mediport. Discoid right basilar atelectasis or scarring, otherwise clear lungs.
== END 2023-07-05 10:06 | disposition home or self-care (01) ==
PROVIDERS: PCP Student in an Organized Health Care Education/Training Program; Visit Provider Surgery
DX: Z95.828 Presence of other vascular implants and grafts (principal)
CPT/HCPCS: 71046

== ENCOUNTER 2023-07-27 09:44 | Outpatient (CLI) | payer MEDICARE, OTHER, SELFPAY ==
[2023-07-27 10:18] LABS: Basophils Absolute Auto 0.1 K/mm3 (0.0-0.1); Basophils Percent Auto 1.3 % (0.2-1.2); Eosinophils Percent Auto 11.6 % (0-4.4); Hematocrit 41.6 % (37.0-47.0); Hemoglobin 13.2 g/dL (12.0-15.0); Immature Granulocyte Absolute 0.01 K/mm3 (0.00-0.031); Immature Granulocyte Percent A 0.1 % (0-0.5); Lymphocytes Percent Auto 29.4 % (18.3-44.2); Mean Corpuscular HGB Conc 31.7 g/dl (32-36); Mean Corpuscular Hemoglobin 29.4 pg (26-34); Mean Corpuscular Volume 92.7 fl (80-100); Mean Platelet Volume 9.4 fl (7.4-10.4); Monocytes Absolute Auto 0.6 K/mm3 (0.1-0.6); Monocytes Percent Auto 6.9 % (2.6-8.5); Neutrophils Absolute Auto 4.1 K/mm3 (1.3-6.7); Neutrophils Percent Auto 50.7 % (45.5-73.1); Platelet Count Result 425 k/mm3 (150-375); Red Blood Count 4.49 M/mm3 (4.2-5.4); Red Cell Distribution Width 13.9 % (11.5-14.5); White Blood Count 8.2 K/mm3 (4.5-10.0)
[2023-07-27 10:28] LABS: INR 1.5; Prothrombin Time 19.3 Seconds (11.1-14.7)
[2023-07-27 10:29] LABS: Partial Thromboplastin Time 37.6 SECONDS (22.3-36.8)
== END 2023-07-27 09:45 | disposition home or self-care (01) ==
LOC: ANHSURGERY 09:49
PROVIDERS: PCP Student in an Organized Health Care Education/Training Program; Visit Provider Surgery
DX: Z01.818 Encounter for other preprocedural examination (principal); T82.518A Breakdown (mechanical) of other cardiac and vascular devices and implants, initial encounter
CPT/HCPCS: 36415; 85025; 85610; 85730

== ENCOUNTER → 2023-07-27 12:07 | Outpatient (CLI) | payer MEDICARE, OTHER, SELFPAY ==
--- NOTE | ~2023-07-27 | MM_ITS ---
EXAMINATION: MM screening luis BI w wilian HISTORY: Screening mammogram TECHNIQUE: Craniocaudal and mediolateral oblique 3-D tomosynthesis images were obtained and synthetic 2-D images were generated. CAD analysis was submitted and interpreted. COMPARISON: 11/04/2021, 10/25/2020 bilateral screening mammogram examinations BREAST PARENCHYMAL COMPOSITION: The breasts are almost entirely fatty. FINDINGS: There is no evidence of suspicious mass, calcification, or architectural distortion to sugg est malignancy in either breast. There has been no suspicious interval change. IMPRESSION: 1. No mammographic evidence of malignancy. 2. Recommend routine screening mammography in one year. BI-RADS Category 1: Negative Reviewed, dictated and finalized at location A.
== END ==
PROVIDERS: PCP Student in an Organized Health Care Education/Training Program; Visit Provider Student in an Organized Health Care Education/Training Program
DX: Z12.31 Encounter for screening mammogram for malignant neoplasm of breast (principal)
CPT/HCPCS: 77063; 77067

== ENCOUNTER 2023-08-01 00:18 | Day surgery (SDC) | payer MEDICARE, OTHER, SELFPAY ==
--- NOTE | 2023-07-23 15:01 | PC.NURSE ---
Report to the Outpatient Waiting Room, entrance under the green pavilion located off [facility], at time _0600_ on date _[id number]_. Planned Procedure Time: _0730_. Time changes happen often and if your time is changed the preop area will call you the afternoon before. - You and your visitor will be asked to self-screen and do not enter if you have any COVID symptoms. - A mask is optional within the hospital at this time. Patients may have clear liquids (water, carbonated beverages, clear teas, apple juice) until 3 hours prior to surgery with a maximum of 20 ounces. - No food from midnight until time of surgery Take the following medications with a SIP of water the morning of surgery: __Amlodipine, Theophylline, Lamotrigine, Levothyroxine, Liothyronine, Flovent, Mometasone, Flonase, Vicodin or tylenol if needed.__ DO NOT STOP ANY OF YOUR OTHER PRESCRIPTION MEDICATIONS PRIOR TO SURGERY ?EXCEPT THE FOLLOWING Medications to discontinue per physician ___Patient says is stopping Xarelto [id number] Date to take last dose Please no make-up, nail tajik, hairspray, perfume, deodorant, or body powder the day of surgery. No jewelry (including any body piercings) or valuables the day of surgery, leave them at home. Please take a shower or bath the night before, or the morning of, surgery with an antibacterial soap. Wear comfortable, loose fitting clothing. - Jewelry must be removed prior to entering the operating room. Rings and piercings that are not removed may be cut off. - The hospital will not accept responsibility for valuables. - Please leave all valuables, including medications, at home the day of surgery. If you are going home after surgery, a licensed m48/m60 tank driver must drive you home. - NO public transportation without another adult if you receive anesthesia. - We recommend that an adult stay with you for 24 hours following discharge. - We also recommend that you do not drive, make important decision, drink alcoholic beverages, or take any drugs that were not prescribed by your health care provider for at least 24 hours after your discharge time. Follow any additional instructions given to you from your surgeon. If you or anyone in your household have experienced Covid symptoms in the past week, please notify your surgeon or the nurse liaison at the phone number below for possible testing. Telephone instructions given to __Patient___and asked if any additional questions and then verbalized understanding. Patient advised to call surgeon office or pre surgery nurse liaison [phone] if any additional questions.
--- NOTE | 2023-07-31 14:16 | WPDANESEPPF ---
Anes - Initial Pre Proc Eval Procedure: Operation Date: 08/01/23 07:30 Proposed Procedures p Revision or Replacemet of Left Subclavian Shanelle Cath - Kelechi Lazar MD Date/Time: 07/31/23 14:16 Surgeon: Kelechi Lazar MD Pre Op Diagnosis: Port A Cath Dysfunction Patient Data Age: 53 Gender: F Height: 1.7 m Weight: Allergies Allergy/AdvReac Type Severity Reaction Status Date / Time aspirin Allergy Severe anaphylaxis Verified 07/23/23 14:54 aztreonam Allergy Severe RASH Verified 07/23/23 14:54 ibuprofen Allergy Severe Anaphylaxis Verified 07/23/23 14:54 NSAIDS (Non-Steroidal Allergy Severe Anaphylactic Verified 07/23/23 14:54 Anti-Inflamma Shock shellfish derived Allergy Severe Swelling Verified 07/23/23 14:54 of Lip/Tongue/Throat adhesive Allergy Intermediate rash Verified 07/23/23 14:54 ciprofloxacin Allergy Intermediate Hives Verified 07/23/23 14:54 latex Allergy Intermediate Dyspnea Verified 07/23/23 14:54 nifedipine Allergy Intermediate Urticaria Verified 07/23/23 14:54 sulfamethizole Allergy Intermediate Urticaria Verified 07/23/23 14:54 terbinafine Allergy Intermediate Urticaria Verified 07/23/23 14:54 trimethoprim Allergy Intermediate Hives Verified 07/23/23 14:54 vancomycin Allergy Intermediate Rash Verified 07/23/23 14:54 Home Medications Medication Instructions Recorded Confirmed Type albuterol sulfate 2.5 mg/3 mL 2.5 mg inhalation Q6H PRN Dyspnea 09/03/19 07/23/23 History (0.083 %) solution for nebulization amlodipine 10 mg tablet 10 mg PO DAILY 09/03/19 07/23/23 History epinephrine 0.3 mg/0.3 mL 0.3 mg subcut DIRECTED PRN 09/03/19 07/23/23 History injection, auto-injector Anaphylaxis ergocalciferol (vitamin D2) 1,250 50,000 unit PO WEEKLY 09/03/19 07/23/23 History mcg (50,000 unit) capsule fluticasone propionate 50 50 mcg intranasal DAILY 09/03/19 07/23/23 History mcg/actuation nasal spray,suspension furosemide 40 mg tablet 40 mg PO DAILY 09/03/19 07/23/23 History guaifenesin 600 mg tablet, 600 mg PO DAILY 09/03/19 07/23/23 History extended release 12 hr (Mucinex) lamotrigine 200 mg tablet 200 mg PO BID 09/03/19 07/23/23 History omeprazole 20 mg capsule,delayed 40 mg PO BID 09/03/19 07/23/23 History release ondansetron HCl 4 mg tablet 4 mg PO Q8H PRN Nausea And Vomiting 09/03/19 07/23/23 History rivaroxaban 20 mg tablet (Xarelto) 20 mg PO DAILY 09/03/19 07/23/23 History theophylline 300 mg 300 mg PO BID 09/03/19 07/23/23 History tablet,extended release,12 hr tiotropium bromide 18 mcg capsule 18 mcg inhalation DAILY 09/03/19 07/23/23 History with inhalation device (Spiriva with HandiHaler) mometasone-formoterol HFA 200 2 puff inhalation BID 11/03/19 07/23/23 History mcg-5 mcg/actuation aerosol inhaler (Dulera) fexofenadine 180 mg tablet 180 mg PO DAILY 11/04/20 07/23/23 History ramipril 5 mg capsule (Altace) 5 mg PO BID 11/04/20 07/23/23 History diphenhydramine HCl 25 mg capsule 25 mg PO HS PRN SLEEEP 01/25/21 07/23/23 History (Allergy (diphenhydramine)) fluticasone propionate 110 1 puff inhalation BID 01/25/21 07/23/23 History mcg/actuation HFA aerosol inhaler (Flovent HFA) hydrocodone 5 mg-acetaminophen 325 1 tablet PO Q4H PRN Pain (Scale 01/25/21 07/23/23 History mg tablet Score 4-6) folic acid 1 mg tablet 1 mg PO DAILY 03/02/23 07/23/23 History levothyroxine 25 mcg tablet 50 mcg PO DAILY 03/02/23 07/23/23 History (Unithroid) Ivig See Rx Instructions .Route .COMPLEX 04/04/23 07/23/23 History liothyronine 5 mcg tablet 5 mcg PO BID 05/02/23 07/23/23 History progesterone micronized 100 mg 100 mg PO QAM 07/09/23 07/23/23 History capsule Patient hx anesthesia problems: post op nausea/vomiting Family hx anesthesia problems: none Results Review: All pre-operative results and documents have been reviewed as part of the pre-operative evaluation. [facility] Past Medical History Medical History (Reviewed 07/09/23 @ 10:3
--- NOTE | ~2023-08-01 | XR_ITS ---
CORRECTED REPORT exam description [facility] [place] 08/07/23 This report was recreated on 08/07/23. Original report was EXAMINATION: XR fluoroscopy no charge DATE: 08/01/2023 08:32 INDICATION: Revision left subclavian port catheter TECHNIQUE: 2 fluoroscopic images of the upper chest were obtained during procedure performed by Dr. Lazar. Radiologist was not present for the imaging or procedure. The amount of fluoroscopy time used during this procedure was 0.2 minutes. COMPARISON: None. FINDINGS/IMPRESSION: Left subclavian central venous port catheter with distal tip near the superior cavoatrial junction. Reviewed, dictated and finalized at location A. [facility]
--- NOTE | ~2023-08-01 | XR_ITS ---
EXAMINATION: XR chest port-a-cath/central DATE: 08/01/2023 08:54 INDICATION: Revision left subclavian port catheter placement TECHNIQUE: frontal view of the chest was obtained. COMPARISON: Chest radiograph dated 07/15/2023 FINDINGS: Left subclavian central venous port catheter with distal tip near the superior cavoatrial junction. N o significant change in a bandlike opacity extending across the right lower lung zone and more subtle linear opacity lateral left lung base consistent with discoid atelectasis/scarring. No new airspace opacities, pulmonary edema, pleural effusion or pneumothorax. Heart size is normal. IMPRESSION: 1. Left subclavian central venous port catheter in expected position with distal tip near the superio r cavoatrial junction. 2 . Chronic discoid atelectasis/scarring at the bilateral lower lung zones. No acute cardiopulmonary disease. Reviewed, dictated and finalized at location A. IMPRESSION: 1. Left subclavian central venous port catheter in expected position with dista l tip near the superior cavoatrial junction. 2 . Chronic discoid atelectasis/scarring at the bilateral lower lung zones. No acute cardiopulmonary disease.
[2023-08-01] MEDS: LACTATED RINGERS 1,000 ML 30 ML IV CONT (06:30)
[2023-08-01 07:00] VITALS: BP 129/83; PULSE 93; RESP 16; TEMP 36.6; O2SAT 98
--- NOTE | 2023-08-01 07:16 | WPDHPUPDATE1 ---
History and Physical Update Update Date/Time: 08/01/23 07:16 History and Physical has been reviewed, including an updated exam of the patient. There are NO changes in the patient's condition. Risks, benefits, and alternatives have been discussed and questions answered. Patient agrees to proceed with procedure.
[2023-08-01] MEDS: ceFAZolin 2 GM/D5W 50 ML 2 GM/50 ML BAG IVPB (07:28)
[2023-08-01 07:29] LABS: Prothrombin Time 13.3 Seconds (11.1-14.7)
[2023-08-01 07:30] LABS: Partial Thromboplastin Time 26.4 SECONDS (22.3-36.8)
[2023-08-01] MEDS: HEPARIN SODIUM 5,000 UNITS/ML VIAL 1000 UNITS IRRIGATION (07:46)
[2023-08-01] MEDS: BUPIVACAINE/EPINEPHRINE 0.5% 50 ML VIAL INFILTRATE (07:49)
[2023-08-01] MEDS: ceFAZolin SODIUM 1 GM VIAL IRRIGATION (08:19)
[2023-08-01 08:35] VITALS: BP 111/67; PULSE 81; RESP 16; O2SAT 99
--- NOTE | 2023-08-01 08:53 | W.PM.PROC2 ---
Procedure Note - Detailed Date of Procedure 08/01/23 Pre-op Diagnosis Port A Cath Dysfunction Common variable immunodeficiency disorder Post-op Diagnosis Same Procedure Performed Revision left subclavian Port-A-Cath Surgeon Kelechi Lazar MD Intermediate Card Tender Abner MEJIA Anesthesia General (G IV S) and Local (0.5% Marcaine with epinephrine) Indications Patient is a 53-year-old woman who I initially saw in early February with an infected right subclavian Port-A-Cath which had been placed at another facility. This Port-A-Cath was removed and the wound was allowed to heal. The patient receives IV infusions of immunoglobulin monthly. She has dwindling peripheral venous access. I placed a new left subclavian Port-A-Cath on May 09, 2023. Prior to that, I had discussed the proper timing of placement of a Port-A-Cath relative to her immunoglobulin infusion with her physician. This Port-A-Cath was placed shortly after that infusion, within a week. Unfortunately, this Port-A-Cath was unable to be cannulated by nursing where she receives her immunoglobulin. I saw her back in the office and it appeared that the Port-A-Cath had flipped 180? such that the back of the Port-A-Cath was now facing anterior. Chest x-ray done at that time looked normal. She is taken back to surgery now for revision or possibly replacement of the left subclavian Port-A-Cath. She did just have her immunoglobulin infusion 5 days ago. Findings I found 4 silk sutures in the wound but none of them were attached to the Port-A-Cath. She did have a fibrous sheath over the Port-A-Cath but this had been ruptured and the general pocket was much larger than usual. As I opened the wound, the Port-A-Cath was oriented properly but was quite mobile and easily could flipped 180? so that the back of the Port-A-Cath was anterior and not able to be cannulated. The Port-A-Cath itself was checked and re checked throughout the procedure and always aspirated blood and flushed easily with heparin. It was quite suitable to use. Description of Procedure Patient was taken to surgery and placed in a supine position with the head turned slightly to the right and the subclavian and neck areas were well exposed. The and the prep and drape was carried out the usual fashion. I then marked an ellipse around her old scar. Local was infiltrated into the skin and the deeper subcutaneous tissues. The ellipse of skin was excised. Cautery was used for hemostasis. Additional local was infiltrated and we dissected down to the Port-A-Cath pocket. The pocket was opened and very little fluid was within the pocket. I extended the opening of the pocket to coincide with the incision. I was then able to easily see the Port-A-Cath. It was oriented appropriately with the rubbery access side facing anterior. Further examination, showed that it was excessively mobile and no sutures were attached to the Port-A-Cath. I cannulated the Port-A-Cath with a Spear needle and was easily able to aspirate blood and flush the Port-A-Cath with heparin. This was done several times. I then searched the wound and removed all suture that I could find. There were at least 4 sutures I removed. These appeared to be silk sutures which is my usual practice to secure the Port-A-Cath. I did notice also that the fibrous sheath was present at the bottom of the pocket but the Port-A-Cath was cephalad to the sheath which had been disrupted in some fashion. A patient is obese and there was fair amount of subcutaneous tissue between the skin and the Port-A-Cath. I removed at least a cm to a cm and a half thickness of subcutaneous so that the skin would be closer to the Port-A-Cath but with still some subcutaneous over the Port-A-Cath and between the Port-A-Cath and the skin. This subcutaneous tissue was discarded. I then sutured the Port-A-Cath to the pectoralis major muscle. Healthy bites of pectoralis major or muscle and scar tissue from the fibrous sheath were
[2023-08-01 09:05] VITALS: BP 137/81; PULSE 72; RESP 20
[2023-08-01] MEDS: oxyCODONE HCL (*CRX) 5 MG TAB IR PO (09:19)
[2023-08-01 09:35] VITALS: BP 130/70; PULSE 70; RESP 20
--- NOTE | 2023-08-01 10:04 | SUR.PHASEII ---
0945 - dr. minor in room talking with patient
== END 2023-08-01 09:50 | disposition home or self-care (01) ==
PROVIDERS: PCP Student in an Organized Health Care Education/Training Program; Visit Provider Surgery
PROC: (CPT 36597; principal; 2023-08-01 07:30)
DX: T82.524A Displacement of infusion catheter, initial encounter (principal); Y83.8 Other surgical procedures as the cause of abnormal reaction of the patient, or of later complication, without mention of misadventure at the time of the procedure; D83.9 Common variable immunodeficiency, unspecified; I10 Essential (primary) hypertension; E78.5 Hyperlipidemia, unspecified; K21.9 Gastro-esophageal reflux disease without esophagitis; J43.9 Emphysema, unspecified; F41.9 Anxiety disorder, unspecified; F32.A Depression, unspecified; M79.7 Fibromyalgia; I73.00 Raynaud's syndrome without gangrene; Z86.711 Personal history of pulmonary embolism; Z86.718 Personal history of other venous thrombosis and embolism; Z79.51 Long term (current) use of inhaled steroids; Z79.01 Long term (current) use of anticoagulants; Z79.891 Long term (current) use of opiate analgesic; Z90.49 Acquired absence of other specified parts of digestive tract; E66.9 Obesity, unspecified; Z68.39 Body mass index [BMI] 39.0-39.9, adult
CPT/HCPCS: 36597; 36415; 77001; 85610; 85730; 99199; A9270; J0690; J1644; J2250; J2405; J2704; J7030; J7120

== ENCOUNTER → 2023-08-06 12:37 | Outpatient (CLI) | payer MEDICARE, OTHER, SELFPAY ==
--- NOTE | ~2023-08-06 | CT_ITS ---
EXAMINATION: CT abdomen pelvis wo con DATE: 08/06/2023 13:07 INDICATION: Renal stones. TECHNIQUE: Computed tomography (CT) of the abdomen and pelvis was performed without intravenous contr ast. Automated exposure control and iterative reconstruction technique were employed. The dose-length product was 1020.63 mGy-cm. COMPARISON: CT abdomen and pelvis 12/06/2022, 02/21/22 FINDINGS: The visualized portions of the lung bases demonstrate mild atelectasis. There is mucous plu gging in left lower lobe. In the left lower lobe, there is a 12 mm nodule, stable from 12/06/2022 and i ncreased from 10 mm on 02/21/2022. No pleural effusion. The heart size is normal. No pericardial effus ion. The liver is normal. There are changes of cholecystectomy. The spleen, pancreas, adrenal glands, and kidneys are normal. There is no urolithiasis. There is an anastomosis in the sigmoid colon. Ther e is a right-sided ventral hernia containing nonobstructed colon and distal small bowel. The appendix is not visualized. There are no pathologically enlarged lymph nodes. There are changes of ventral he rnia repair. There is no free intraperitoneal fluid. There is severe lower lumbar spondylosis. IMPRESSION: 1. No urolithiasis. 2. Right-sided ventral hernia containing nonobstructed bowel. 3. 12 mm pulmonary nodule, stable from 12/06/22 and increased from 10 mm on 02/21/22. This finding is in determinate for malignancy. Consider PET/CT. Reviewed, dictated and finalized at location A. IMPRESSION: 1. No urolithiasis. 2. Right-sided ventral hernia containing nonobstructed bowel. 3. 12 mm pulmonary nodule, stable from 12/06/22 and increased from 10 mm on . This finding is indeterminate for malignancy. Consider PET/CT.
== END ==
PROVIDERS: PCP Student in an Organized Health Care Education/Training Program; Visit Provider Urology
DX: N20.0 Calculus of kidney (principal); K43.9 Ventral hernia without obstruction or gangrene; R91.1 Solitary pulmonary nodule
CPT/HCPCS: 74176

== ENCOUNTER 2023-08-24 10:55 | Inpatient (IN) | payer MEDICARE, OTHER, SELFPAY ==
--- NOTE | ~2023-08-24 | XR_ITS ---
XR chest 1V portable DATE: 08/26/2023 13:40 INDICATION: Fever, leukocytosis, tachycardia TECHNIQUE: Portable upright AP chest on 08/26/2023 at 1337 hours COMPARISON: 07/2023 portable AP chest at 0851 hours FINDINGS: Left Port-A-Cath catheter tip overlies superior vena cava. Normal heart size. No hilar or mediastinal enlargement. Mild atelectasis is suggested at the lower lung zones. No pulmonary infiltrate or consolidation, pleu ral effusion or pulmonary vascular congestion or pneumothorax is noted otherwise. IMPRESSION: Mild bibasilar atelectasis Left Port-A-Cath Reviewed, dictated and finalized at location A.
--- NOTE | ~2023-08-24 | XR_ITS ---
EXAMINATION: XR surgery orthopedic DATE: 08/27/2023 12:02 INDICATION: ORIF left ankle fracture TECHNIQUE: 4 fluoroscopic images of the left ankle were obtained during procedure performed by Dr. Eduardo meng. Radiologist was not present for the imaging or procedure. The amount of fluoroscopy time used during this procedure was 0.8 minutes. COMPARISON: 08/24/2023 FINDINGS: Old reduction internal fixation of the previously seen left ankle fracture. The medial malleolar frac ture is fixed with a pair of cannulated lag screws. The lateral malleolar fractures fixed with interf ragmentary screw and lateral plate and screws. The small fracture at the posterior malleolus remains in near-anatomic alignment without fixation. Alignment appears near-anatomic with a congruent ankle m ortise. No other fractures identified. Small Achilles and plantar calcaneal spurs. Joint spaces are n ormal. IMPRESSION: 1. Near-anatomic alignment post reduction internal fixation of a trimalleolar fracture of the left an kle. Reviewed, dictated and finalized at location A. IMPRESSION: 1. Near-anatomic alignment post reduction internal fixation of a trimalleolar f racture of the left ankle.
--- NOTE | ~2023-08-24 | XR_ITS ---
XR ankle LT min 3V 08/24/2023 11:17 Indication: Left ankle pain Procedure: 3 views left ankle Comparison: 01/01/2019 Findings: There are displaced bilateral malleolar fractures. There is lateral subluxation of the talu s with respect to the tibia, approximately one half bone width. There is dorsal subluxation of the di stal fibular fracture fragment, best seen on lateral view. There is moderate soft tissue swelling. Sm all degenerative calcaneal enthesophytes. Impression: 1: Displaced bimalleolar fracture. Reviewed, dictated and finalized at location B. Impression: 1: Displaced bimalleolar fracture.
[2023-08-24 10:58] VITALS: BP 132/82; PULSE 105; RESP 20; TEMP 36.7; O2SAT 98
--- NOTE | 2023-08-24 12:31 | ED.LOWEXIN ---
HPI - Extremity Injury (Lower) General Chief Complaint: Extremity Injury, Lower <Sonia Matos PA-C - Last Filed: 08/24/23 16:46> Stated Complaint: left ankle injury <IAM Martines Last Filed: 08/24/23 16:46> Time Seen by Provider: 08/24/23 11:55 <Sonia Matos PA-C - Last Filed: 08/24/23 16:46> Source: patient <IAM Martines Last Filed: 08/24/23 16:46> Mode of arrival: wheelchair <IAM Martines Last Filed: 08/24/23 16:46> Limitations: no limitations <IAM Martines Last Filed: 08/24/23 16:46> History of Present Illness HPI Narrative: This is a 53-year-old female that presents to the emergency department for left ankle pain. Reports she slipped and fell trying to get out of the shower. Denies hitting her head or loss of consciousness. Reports decreased range of motion in the ankle. Denies numbness. <Sonia Matos PA-C - Last Filed: 08/24/23 16:46> Related Data Home Medications: Home Medications Medication Instructions Recorded Confirmed albuterol sulfate 2.5 mg/3 mL 2.5 mg inhalation Q6H PRN Dyspnea 09/03/19 08/24/23 (0.083 %) solution for nebulization amlodipine 10 mg tablet 10 mg PO DAILY 09/03/19 08/24/23 epinephrine 0.3 mg/0.3 mL 0.3 mg subcut DIRECTED PRN 09/03/19 08/24/23 injection, auto-injector Anaphylaxis ergocalciferol (vitamin D2) 1,250 50,000 unit PO WEEKLY 09/03/19 08/24/23 mcg (50,000 unit) capsule furosemide 40 mg tablet 40 mg PO DAILY 09/03/19 08/24/23 guaifenesin 600 mg tablet, 600 mg PO BID PRN Cough 09/03/19 08/24/23 extended release 12 hr (Mucinex) lamotrigine 200 mg tablet 200 mg PO BID 09/03/19 08/24/23 omeprazole 20 mg capsule,delayed 60 mg PO BID 09/03/19 08/24/23 release ondansetron HCl 4 mg tablet 4 mg PO Q8H PRN Nausea And Vomiting 09/03/19 08/24/23 rivaroxaban 20 mg tablet (Xarelto) 20 mg PO DAILY 09/03/19 08/24/23 theophylline 300 mg 300 mg PO BID 09/03/19 08/24/23 tablet,extended release,12 hr tiotropium bromide 18 mcg capsule 18 mcg inhalation DAILY 09/03/19 08/24/23 with inhalation device (Spiriva with HandiHaler) mometasone-formoterol HFA 200 2 puff inhalation BID 11/03/19 08/24/23 mcg-5 mcg/actuation aerosol inhaler (Dulera) fexofenadine 180 mg tablet 180 mg PO DAILY 11/04/20 08/24/23 (Nneka Allergy) ramipril 5 mg capsule (Altace) 5 mg PO BID 11/04/20 08/24/23 diphenhydramine HCl 25 mg capsule 50 mg PO Q28D 01/25/21 08/24/23 (Allergy (diphenhydramine)) fluticasone propionate 110 1 puff inhalation BID 01/25/21 08/24/23 mcg/actuation HFA aerosol inhaler (Flovent HFA) folic acid 1 mg tablet 1 mg PO QAM 03/02/23 08/24/23 levothyroxine 25 mcg tablet 50 mcg PO QMWF 03/02/23 08/24/23 (Unithroid) Ivig See Rx Instructions .Route .COMPLEX 04/04/23 08/24/23 liothyronine 5 mcg tablet 5 mcg PO BID 05/02/23 08/24/23 acetaminophen 325 mg tablet 650 mg PO Q6H PRN pain or fever 08/24/23 08/24/23 (Tylenol) doxycycline hyclate 100 mg tablet 100 mg PO BID 08/24/23 08/24/23 lansoprazole 15 mg capsule,delayed 15 mg PO DAILY 08/24/23 08/24/23 release (Prevacid 24Hr) levothyroxine 25 mcg tablet 25 mcg PO QTUTHSASU 08/24/23 08/24/23 (Unithroid) <Sonia Matos PA-C - Last Filed: 08/24/23 16:46> Allergies/Adverse Reactions: Allergies Allergy/AdvReac Type Severity Reaction Status Date / Time aspirin Allergy Severe anaphylaxis Verified 08/24/23 10:56 aztreonam Allergy Severe RASH Verified 08/24/23 10:56 ibuprofen Allergy Severe Anaphylaxis Verified 08/24/23 10:56 NSAIDS (Non-Steroidal Allergy Severe Anaphylactic Verified 08/24/23 10:56 Anti-Inflamma Shock shellfish derived Allergy Severe Swelling Verified 08/24/23 10:56 of Lip/Tongue/Throat adhesive Allergy Intermediate rash Verified 08/24/23 10:56 ciprofloxacin Allergy Intermediate Hives Verified 08/24/23 10:56 latex Allergy Intermediate Dyspnea Verified 08/24/23 10:56 nifedipine Allergy Int
[2023-08-24] MEDS: ONDANSETRON INJ 4 MG/2 ML VIAL IV PUSH (13:19)
[2023-08-24] MEDS: MORPHINE SULFATE (*CRX) 4 MG/ML INJ IV PUSH ×2 (13:19→16:39)
[2023-08-24] MEDS: fentaNYL CITRATE INJ (*CRX) 100 MCG/2 ML VIAL 50 MCG IV PUSH (14:13)
--- NOTE | 2023-08-24 14:52 | PC.NURSE ---
PA requested for pt to attempt walking with crutches. This RN attempted to get pt up to walk with crutches when she stated, you are going to need more help because I am clumsy and am probably going to just fall down. This RN did not get the pt up and PA aware of situation.
[2023-08-24 15:16] LABS: Basophils Absolute Auto 0.1 K/mm3 (0.0-0.1); Basophils Percent Auto 0.8 % (0.2-1.2); Eosinophils Absolute Auto 0.3 K/mm3 (0-0.3); Eosinophils Percent Auto 2.7 % (0-4.4); Hematocrit 38.5 % (37.0-47.0); Hemoglobin 12.1 g/dL (12.0-15.0); Immature Granulocyte Absolute 0.04 K/mm3 (0.00-0.031); Immature Granulocyte Percent A 0.3 % (0-0.5); Lymphocytes Absolute Auto 2.52 K/mm3 (0.9-3.2); Lymphocytes Percent Auto 20.6 % (18.3-44.2); Mean Corpuscular HGB Conc 31.4 g/dl (32-36); Mean Corpuscular Hemoglobin 29.2 pg (26-34); Mean Platelet Volume 9.2 fl (7.4-10.4); Monocytes Absolute Auto 0.8 K/mm3 (0.1-0.6); Monocytes Percent Auto 6.3 % (2.6-8.5); Neutrophils Absolute Auto 8.5 K/mm3 (1.3-6.7); Neutrophils Percent Auto 69.3 % (45.5-73.1); Platelet Count Result 417 k/mm3 (150-375); Red Blood Count 4.14 M/mm3 (4.2-5.4); Red Cell Distribution Width 15.7 % (11.5-14.5); White Blood Count 12.2 K/mm3 (4.5-10.0)
[2023-08-24 15:30] LABS: Anion Gap 7 mmol/L (8-16); Blood Urea Nitrogen 14 mg/dL (7-17); Calcium 9.3 mg/dL (8.4-10.2); Carbon Dioxide 24 mmol/L (22-30); Chloride 101 mmol/L (98-107); Estimated Glomerular Filt Rate > 60; Glucose 96 mg/dL (65-110); Potassium 3.7 mmol/L (3.4-5.0); Sodium 132 mmol/L (137-145)
[2023-08-24] MEDS: ACETAMINOPHEN 500 MG TABLET 1000 MG PO (16:43)
--- NOTE | 2023-08-24 16:55 | PM.IMHP ---
H&P: HPI History of Present Illness Date/Time: 08/24/23 19:30 Chief Complaint: Left ankle pain after fall. Narrative: This is a 53-year-old female with hypertension, asthma, hypothyroidism, fibromyalgia, common variable immunodeficiency, and deep venous thrombosis and pulmonary embolism on rivaroxaban who presented to the emergency department via private vehicle from home for evaluation of left ankle pain after a fall. The patient provides the following history. This morning the patient was shaving her legs and was sitting on the side of the bathtub. When she went to stand up she slept and turned her left ankle inward, causing her to fall. She had immediate pain in that left ankle and was unable to get herself up. EMS was summoned and she was brought in for evaluation. Radiographs showed a displaced bimalleolar fracture which was splinted. Unfortunately her pain is severe and she was unable to ambulate without multiple person assist and she is being admitted overnight for pain control and orthopedic consultation. She sustained no other injuries in the fall and she denies head trauma and loss of consciousness. Review of Systems Review of Systems: Twelve systems were reviewed. She has occasional fevers which she attributes to her common variable immunodeficiency. She denies current cold and flu symptoms, diarrhea, and dysuria. She is however currently on antibiotics for an ear infection and has 2 days remaining on that course. Except as documented, all other systems were reviewed and are negative. [facility] Past Medical History Medical History Anxiety Arthritis Arthropathy of right knee Asthma Colitis Dx 03 September 2019 Common variable immunodeficiency COPD (chronic obstructive pulmonary disease) Depression DVT (deep venous thrombosis) Emphysema of lung Fibromyalgia Foot fracture, left GERD (gastroesophageal reflux disease) GI bleed HLD (hyperlipidemia) HTN (hypertension) IgM deficiency Irritable bowel PCOS (polycystic ovarian syndrome) Pulmonary embolism Raynauds syndrome Surgical History Surgical History H/O dilation and curettage H/O laminectomy H/O sinus surgery History of endometrial ablation History of hysteroscopy October of 2021 History of incision and drainage Removal of right subclavian port-a-cath and I&D of right chest abscess on 03/02/23. History of knee surgery x 2 right x 1 left History of ventral hernia repair (12/28/20) Hx of appendectomy Hx of tonsillectomy S/P laparoscopic-assisted sigmoidectomy (~03/2020) Performed due to: Stricture resulting in right ventral hernia Family History Family History Father Diabetes mellitus Hypertension Mother Rheumatoid arthritis Acute myocardial infarction Heart disease Hypertension Sibling Hypertension Diabetes mellitus Other Family history of gout Family history of obesity Family history unknown Social History Social History (Updated 08/24/23 @ 22:55 by Beverley Lama PA-C) Social History: Surrogate medical decision maker: Hector Petra, spouse. Code status: Full code. Smoking status: Never smoker Second hand tobacco smoke exposure: No Alcohol intake: current Drinks per week: 1 Alcohol use details: FEW A MONTH Substance use: never Substance use type: does not use Lack of Transportation: No Lack of Food: Never True Current Housing: I Have Housing Concerned About Future Housing: No Difficulty Paying Gas/Electric Bills: No Difficulty Paying for Meds: No Currently Unemployed: No Education: Associate Degree Difficulty w/ Childcare or Family Care: No Living arrangements: with family Spiritual care concerns: No Meds Home Medications and Allergies Home Medications Medication Instructions Recorded Confirmed Type a
--- NOTE | 2023-08-24 17:50 | PC.NURSE ---
This patient, Tracey Lambert, was admitted to 3 Med Surg Room 328-01 @ 1750. Patient/family oriented to hospital policies and general routines including ID bracelet, bed and alarms, visiting hours, pain management, procedures, bathroom and other care routines, personal items, smoking policy, room service/diet, and visiting hours. Information on how to activate the Rapid Response Team has been discussed. Patient/Family are encouraged to report perceived risks to care and to ask questions if they do not understand what they are told or what they should do.
[2023-08-24 18:24] VITALS: BMI 39.1
[2023-08-24] MEDS: oxyCODONE HCL (*CRX) 5 MG TAB IR PO (19:56)
[2023-08-24 22:00] VITALS: BP 150/82; PULSE 91; RESP 18; TEMP 35.8; O2SAT 97
[2023-08-24] MEDS: HYDROmorphone HCL INJ (*CRX) 1 MG/ML SYR 0.5 MG IV PUSH (22:34)
[2023-08-24] MEDS: LIOTHYRONINE SODIUM 5 MCG TABLET PO (23:42)
[2023-08-24] MEDS: PANTOPRAZOLE 40 MG TABLET PO (23:43)
[2023-08-24] MEDS: THEOPHYLLINE 300 MG ER 12 HR TABLET PO (23:43)
[2023-08-24] MEDS: ramipriL 5 MG CAPSULE PO (23:43)
[2023-08-24] MEDS: lamoTRIgine 100 MG TABLET 200 MG PO (23:44)
[2023-08-25] VITALS (15 sets, daily range): BP systolic 84–150; BP diastolic 51–75; PULSE 75–108; RESP 12–18; TEMP 36.2–38.1; O2SAT 95–100
[2023-08-25] MEDS: oxyCODONE HCL (*CRX) 5 MG TAB IR PO (02:08)
[2023-08-25] MEDS: HYDROmorphone HCL INJ (*CRX) 1 MG/ML SYR 0.5 MG IV PUSH ×2 (03:08→06:01)
--- NOTE | 2023-08-25 04:52 | ECG_ITS ---
Measurements Intervals [place] Rate: 74 P: 60 MO: 154 QRS: 23 QRSD: 99 T: 24 QT: 392 QTc: 437 Interpretive Statements SINUS RHYTHM NORMAL ECG COMPARED TO ECG 03/01/2023 22:35:44 SINUS RHYTHM NOW PRESENT Electronically Signed On 08-25-2023 14:37:14 CDT by Shay Samayoa M.D.
[2023-08-25] MEDS: LEVOTHYROXINE SODIUM 25 MCG TABLET PO (06:01)
[2023-08-25] MEDS: ONDANSETRON INJ 4 MG/2 ML VIAL IV PUSH ×2 (06:01→23:03)
[2023-08-25] MEDS: FOLIC ACID 1 MG TABLET PO (06:01)
--- NOTE | 2023-08-25 07:56 | PM.CNOR ---
Assessment and Plan Assessment and plan (1) Bimalleolar fracture of left ankle: Qualifiers: Encounter type: initial encounter Fracture type: closed Qualified Code(s): S82.842A - Displaced bimalleolar fracture of left lower leg, initial encounter for closed fracture Code(s): S82.842A - Displaced bimalleolar fracture of left lower leg, initial encounter for closed fracture Status: Acute Assessment and Plan: New patient evaluation for chief complaint left ankle fracture. History, physical exam and radiographs reviewed with the patient. Discussed the condition, nature, etiology and course of natural history with the patient. Treatment options including surgical and nonoperative treatment were reviewed. Risks and benefits of each as well as alternatives reviewed. The patient's questions were answered. Splinted in the emergency room. Admitted for inability to mobilize with nonweightbearing restrictions. Also admitted for pain control. Conservative treatment ice, compression and elevation. Patient to consider operative versus non operative treatment options. Plan Discussed nonoperative and operative treatment options with the patient. Risks and benefits of each as well as alternatives were reviewed. All of the patient's questions were answered. The risks of surgery reviewed including but not limited to: Neurovascular damage, wound complication, infection, blood clot, pulmonary embolus, stroke, myocardial infarction, and anesthetic risks up to and including . Continued pain and possible dysfunction were explained. Specific risks of the procedure including later recurrence of deformity. No guarantees were offered. If hardware used, discussed risk of failure/ breakage and possible need for removal. If complications occur, the patient understands the need for further treatment, possible further surgery. Patient verbalizes understanding and wishes to proceed. PLAN: Open reduction internal fixation left ankle fracture History of Present Illness HPI Consult date: 08/25/23 Requesting physician: Sonia Matos PA-C Chief complaint: Left Bimalleolar Fracture Narrative: 53-year-old woman lost balance while at home and fell twisting left ankle. Unable to bear weight. Brought to the emergency room and found to have left ankle fracture. Reduced and splinted in the emergency room. No loss of consciousness. Review of Systems Constitutional: Constitutional: Denies fever(s) Eyes: Eyes: Denies blurry vision ENT: Reports Normal hearing present Cardiovascular: Cardiovascular: Denies chest pain and Denies dyspnea Respiratory: Respiratory: Denies dyspnea and Denies wheezing Gastrointestinal: Gastrointestinal: Denies abdominal pain Genitourinary: Genitourinary: Denies urinary urgency Musculoskeletal: Musculoskeletal: Reports as per HPI and Denies numbness Integumentary/Breasts: Skin/Breast: Denies changing lesions and Denies sores Neurologic: Reports Normal hearing present, Denies behavioral changes, Denies confusion, Denies numbness and Denies convulsions Psychiatric: Psychiatric: Denies behavioral changes, Denies confusion and Denies hallucinations Endocrine: Endocrine: Denies heat intolerance Hematologic/Lymphatic: Hematologic/Lymphatic: Denies easy bleeding Allergic/Immunologic: Allergic/Immunologic: Denies wheezing PMFSH Past Medical History Medical History Anxiety Arthritis Arthropathy of right knee Asthma Colitis Dx 03 September 2019 Common variable immunodeficiency COPD (chronic obstructive pulmonary disease) Depression DVT (deep venous thrombosis) Emphysema of lung Fibromyalgia Foot fracture, left GERD (gastroesophageal reflux disease) GI bleed HLD (hyperlipidemia) HTN (hypertension) IgM deficiency Irritable bowel PCOS (polycystic ovarian syndrome) Pulmonary embolism Raynauds syndrome Surgical History Surgical Histo
[2023-08-25] MEDS: UMECLIDINIUM BROMIDE 62.5 MCG ELLIPTA 1 PUFF INHALATION (08:01)
[2023-08-25] MEDS: FLUTICASONE/SALMETEROL 230-21 MCG INHALER 1 PUFF 2 PUFF INHALATION (08:02)
[2023-08-25] MEDS: ACETAMINOPHEN 500 MG TABLET 1000 MG PO (08:35)
[2023-08-25] MEDS: THEOPHYLLINE 300 MG ER 12 HR TABLET PO ×2 (08:36→20:46)
[2023-08-25] MEDS: ramipriL 5 MG CAPSULE PO ×2 (08:36→21:17)
[2023-08-25] MEDS: amLODIPine BESYLATE 5 MG TABLET 10 MG PO (08:37)
[2023-08-25] MEDS: lamoTRIgine 100 MG TABLET 200 MG PO ×2 (08:37→20:46)
[2023-08-25] MEDS: ACETAMINOPHEN 325 MG TABLET 650 MG PO ×2 (08:50→22:39)
--- NOTE | 2023-08-25 09:07 | WPDANESEPPF ---
Anes - Initial Pre Proc Eval Procedure: Operation Date: 08/25/23 12:00 Proposed Procedures p ORIF Ankle Fracture - Valentín De La Cruz MD Date/Time: 08/25/23 09:07 Surgeon: Caden Leiva MD Pre Op Diagnosis: Left Bimalleolar Fracture Patient Data Age: 53 Gender: F Height: 1.7 m Weight: 113.4 kg Last Vital Signs Temp 36.3 C L 08/25/23 06:00 Pulse 90 08/25/23 08:01 Resp 18 08/25/23 08:01 BP 133/75 08/25/23 06:00 Pulse Ox 98 08/25/23 06:00 O2 Del Method Room Air 08/24/23 10:58 Allergies Allergy/AdvReac Type Severity Reaction Status Date / Time aspirin Allergy Severe anaphylaxis Verified 08/24/23 10:56 aztreonam Allergy Severe RASH Verified 08/24/23 10:56 ibuprofen Allergy Severe Anaphylaxis Verified 08/24/23 10:56 NSAIDS (Non-Steroidal Allergy Severe Anaphylactic Verified 08/24/23 10:56 Anti-Inflamma Shock shellfish derived Allergy Severe Swelling Verified 08/24/23 10:56 of Lip/Tongue/Throat adhesive Allergy Intermediate rash Verified 08/24/23 10:56 ciprofloxacin Allergy Intermediate Hives Verified 08/24/23 10:56 latex Allergy Intermediate Dyspnea Verified 08/24/23 10:56 nifedipine Allergy Intermediate Urticaria Verified 08/24/23 10:56 sulfamethizole Allergy Intermediate Urticaria Verified 08/24/23 10:56 terbinafine Allergy Intermediate Urticaria Verified 08/24/23 10:56 trimethoprim Allergy Intermediate Hives Verified 08/24/23 10:56 vancomycin Allergy Intermediate Rash Verified 08/24/23 10:56 Home Medications Medication Instructions Recorded Confirmed Type albuterol sulfate 2.5 mg/3 mL 2.5 mg inhalation Q6H PRN Dyspnea 09/03/19 08/24/23 History (0.083 %) solution for nebulization amlodipine 10 mg tablet 10 mg PO DAILY 09/03/19 08/24/23 History epinephrine 0.3 mg/0.3 mL 0.3 mg subcut DIRECTED PRN 09/03/19 08/24/23 History injection, auto-injector Anaphylaxis ergocalciferol (vitamin D2) 1,250 50,000 unit PO WEEKLY 09/03/19 08/24/23 History mcg (50,000 unit) capsule furosemide 40 mg tablet 40 mg PO DAILY 09/03/19 08/24/23 History guaifenesin 600 mg tablet, 600 mg PO BID PRN Cough 09/03/19 08/24/23 History extended release 12 hr (Mucinex) lamotrigine 200 mg tablet 200 mg PO BID 09/03/19 08/24/23 History omeprazole 20 mg capsule,delayed 60 mg PO BID 09/03/19 08/24/23 History release ondansetron HCl 4 mg tablet 4 mg PO Q8H PRN Nausea And Vomiting 09/03/19 08/24/23 History rivaroxaban 20 mg tablet (Xarelto) 20 mg PO DAILY 09/03/19 08/24/23 History theophylline 300 mg 300 mg PO BID 09/03/19 08/24/23 History tablet,extended release,12 hr tiotropium bromide 18 mcg capsule 18 mcg inhalation DAILY 09/03/19 08/24/23 History with inhalation device (Spiriva with HandiHaler) mometasone-formoterol HFA 200 2 puff inhalation BID 11/03/19 08/24/23 History mcg-5 mcg/actuation aerosol inhaler (Dulera) fexofenadine 180 mg tablet 180 mg PO DAILY 11/04/20 08/24/23 History (Nneka Allergy) ramipril 5 mg capsule (Altace) 5 mg PO BID 11/04/20 08/24/23 History diphenhydramine HCl 25 mg capsule 50 mg PO Q28D 01/25/21 08/24/23 History (Allergy (diphenhydramine)) fluticasone propionate 110 1 puff inhalation BID 01/25/21 08/24/23 History mcg/actuation HFA aerosol inhaler (Flovent HFA) folic acid 1 mg tablet 1 mg PO QAM 03/02/23 08/24/23 History levothyroxine 25 mcg tablet 50 mcg PO QMWF 03/02/23 08/24/23 History (Unithroid) Ivig See Rx Instructions .Route .COMPLEX 04/04/23 08/24/23 History liothyronine 5 mcg tablet 5 mcg PO BID 05/02/23 08/24/23 History hydrocodone 5 mg-acetaminophen 325 1 - 2 tablet PO Q8H PRN pain #10 08/01/23 08/24/23 Rx mg tablet tabs acetaminophen 325 mg tablet 650 mg PO Q6H PRN pain or fever 08/24/23 08/24/23 History (Tylenol) doxycycline hyclate 100 mg tablet 100 mg PO BID 08/24/23 08/24/23 History lansoprazole 15 mg capsule,delayed 15 mg PO DAILY 08/24/23 08/24/23 History release (Prevacid 24Hr) levothyroxine 25 mc
--- NOTE | 2023-08-25 09:19 | WPDHPUPDATE1 ---
History and Physical Update Update Date/Time: 08/25/23 09:19 History and Physical has been reviewed, including an updated exam of the patient. There are NO changes in the patient's condition. Risks, benefits, and alternatives have been discussed and questions answered. Patient agrees to proceed with procedure.
[2023-08-25] MEDS: ceFAZolin 3 GM/D5W 100 ML 100 ML IVPB (09:44)
[2023-08-25] MEDS: BUPIVACAINE/EPINEPHRINE 0.5% 50 ML VIAL 30 ML INFILTRATE (10:13)
[2023-08-25] MEDS: LACTATED RINGERS 1,000 ML 30 ML IV CONT (11:37)
--- NOTE | 2023-08-25 11:54 | W.PM.PROC2 ---
Procedure Note - Detailed Date of Procedure 08/25/23 Pre-op Diagnosis Left Bimalleolar Fracture Post-op Diagnosis Same Procedure Performed Open reduction internal fixation left ankle bimalleolar fracture Surgeon Valentín De La Cruz MD Client Support Administrator 1st fws faculty assistant Anesthesia General Indications 53-year-old woman who fell at home and sustained a left ankle bimalleolar fracture. Noted to have displacement and instability. Presents now for operative treatment. Description of Procedure After informed consent, the operative extremity was marked in the preoperative holding area. Patient received intravenous antibiotics. Patient was then taken to the operating room and underwent general anesthesia by the anesthesia team. Positioned supine on the operating room table with a soft bump under the ipsilateral hip. A time-out was performed confirming the patient, site of the surgery, operative plan. Lower extremity then prepped and draped in the usual sterile surgical fashion using ChloraPrep skin solution. Foot and ankle exsanguinated and a thigh tourniquet inflated to 250 mmHg. Longitudinal incision made over the lateral ankle distal fibula with a 15 blade knife. Hemostasis controlled with electrocautery. Full-thickness soft tissue flaps developed and the fascia was incised in line with the skin incision. Fracture identified and cleared with a dental pick, irrigation and rongeur. Fracture reduced and held with bone-holding clamp. Image intensification confirmed reduction of the fracture and the ankle mortise. Fixation achieved with a 3.5 millimeter fully-threaded cortical screw placed in lag technique across the fracture. Neutralization with a lateral plate with unicortical screws distal to fracture and bicortical screws proximal to the fracture. Good alignment and stability of the fracture noted. Image intensification used to confirm reduction of the fracture and placement of the hardware. Medial side then addressed. Longitudinal incision made with a 15 blade knife over the medial malleolus fracture. Hemostasis controlled with electrocautery. Fascia incised in line with skin incision. Periosteum cleared from the medial malleolus fracture. Medial side of the joint inspected and noted to have mild amount of trauma to the chondral surface. Thorough irrigation of the ankle joint and suctioned out. Fracture reduced and provisionally pinned. Fixation achieved with 4.0 mm partially threaded cancellous screws x2 placed in cannulated screw fashion. Image intensification confirmed reduction of the fracture and placement of the hardware. Stress of the ankle performed with good stability of the ankle mortise in all directions. No posterior malleolus fracture noted. Wounds thoroughly irrigated with antibiotic solution. Fascia repaired with 00 Vicryl interrupted suture. Subcutaneous tissue repaired with 000 Monocryl interrupted suture and Skin approximated with cary. Sterile dressings applied followed by bulky dressing and splint. Patient awoken from anesthesia, extubated and taken to the recovery room in stable condition. All sponge, needle and instrument counts correct at the end of the case. Palpable dorsalis pedis pulse noted prior to dressing. Implants Arthrex distal fibula plate and screws, 4.0 mm cannulated screw x2 medially Estimated Blood Loss 30 Tourniquet Time 75 Urine Output 1,300 Drains No Packing No Pathology None sent Complications None Condition Stable Disposition PACU [facility] Billing Surgery - Charge Forward: Surgery Billing ([id number] LT)
--- NOTE | 2023-08-25 11:59 | PM.IMPN ---
Progress Note: A&P Assessment and Plan (1) Bimalleolar fracture of left ankle: Qualifiers: Encounter type: initial encounter Fracture type: closed Qualified Code(s): S82.842A - Displaced bimalleolar fracture of left lower leg, initial encounter for closed fracture Code(s): S82.842A - Displaced bimalleolar fracture of left lower leg, initial encounter for closed fracture Status: Acute Assessment and Plan: Sustained a mechanical fall. Ankle has been splinted. Orthopedic surgeon consulted. Analgesics available as needed. 08/25: Patient underwent open reduction internal fixation displaced by malleolar ankle fracture the left. (2) Hypertension: Code(s): I10 - Essential (primary) hypertension Status: Acute Assessment and Plan: Blood pressures were reviewed 08/25 and they are stable. Continue antihypertensives and monitor. (3) Ear infection: Code(s): H66.90 - Otitis media, unspecified, unspecified ear Status: Acute Assessment and Plan: On day 6 of 7 of doxycycline. Continue. (4) Hypothyroidism: Code(s): E03.9 - Hypothyroidism, unspecified Status: Acute Assessment and Plan: Continue levothyroxine and liothyronine. (5) Asthma: Code(s): J45.909 - Unspecified asthma, uncomplicated Status: Acute Assessment and Plan: No acute issues. Continue maintenance inhalers. 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 Home medication approved will be reviewed by pharmacy administered by nursing. Time Spent With Patient Time with patient: 25 - 35 minutes Subjective Date/time seen: 08/25/23 11:59 Interval history: Patient fractured left ankle by malleolar closed fracture that was displaced. The splinting in the emergency department and pain medicine was inadequate for pain control. Orthopedics was consulted in patient admitted to hospitalist service. Today patient underwent ORIF with Dr. Mei. Patient reports that she is due for her IVIG today that she takes every 28 days. Her port is accessed. Home supply is available. Pharmacy will verify home infusion and this will be delivered the IV pump. Patient gets 50 mg IV Benadryl before infusion and p.r.n. oral Benadryl for itching. Patient was having significant pain control issues earlier and was yelling at the nurses but has since calmed down and pain appears to be improved now the patient's is at bedside. Patient did apologize to the nurse she yelled at. Review of Systems Review of Systems: All systems reviewed & are unremarkable except as noted in HPI and below Exam Narrative: GENERAL: Generally well appearing, alert and oriented, in no apparent distress. HEENT: Pupils are equally round and briskly reactive to light. Extraocular muscles are intact. Oral mucous membranes are moist without lesions. NECK: The patient has no noted JVD. No adenopathy is appreciated. CHEST/LUNGS: Lungs are clear bilaterally without rhonchi, rales, or wheezes. There is no subcutaneous air appreciated. There is no tenderness to the chest wall. Left chest wall port is accessed. HEART: The patient has a regular rate and rhythm. No murmurs, rubs, or gallops are appreciated. Distal pulses are 2+. ABDOMEN: The patient?s abdomen is soft, nontender, and nondistended. Bowel sounds are positive. No peritoneal signs EXTREMITIES: Left ankle is splinted with good capillary refill motor and sensation to the exposed toes. Significant pain with any movement SKIN: The patient?s skin is warm and dry,
[2023-08-25] MEDS: fentaNYL CITRATE INJ (*CRX) 100 MCG/2 ML VIAL 25 MCG IV PUSH ×2 (12:20→12:27)
[2023-08-25] MEDS: PANTOPRAZOLE 40 MG TABLET PO ×2 (14:28→20:46)
[2023-08-25] MEDS: LORATADINE 10 MG TABLET 180 MG PO (14:29)
[2023-08-25] MEDS: DOXYCYCLINE HYCLATE 100 MG TABLET PO ×2 (14:29→20:46)
[2023-08-25] MEDS: FUROSEMIDE 40 MG TABLET PO (14:29)
[2023-08-25] MEDS: LIOTHYRONINE SODIUM 5 MCG TABLET PO ×2 (14:29→20:46)
[2023-08-25] MEDS: HYDROcodone/acetaminophen (*CRX) 5-325 MG TABLET PO ×2 (16:24→17:37)
--- NOTE | 2023-08-25 17:02 | PC.NURSE ---
Pt receives her IVig treatment from [facility] pharmacy and administered by Nursing
[2023-08-25] MEDS: ceFAZolin 1 GM/NS 50 ML 1 GM/50 ML BAG IVPB (17:34)
--- NOTE | 2023-08-25 22:24 | PM.EVENT ---
Event Note Event Note Event Note: Nursing staff with discussing the patient with me as the patient is anxious and restless in bed. Patient is requesting something for anxiety. I do not want to suppress patient's respiratory drive given her history of asthma. Shortly thereafter while I was still discussing the patient's case the nurse the patient's INJECTION SPECIALIST called to state the patient had spiked a fever of 100.4 work. This likely postoperative fever. However patient did have some mild leukocytosis yesterday. Will repeat CBC electrolyte panel lactic acid and obtain blood cultures and urine culture specially in the setting of patient having common variable immunodeficiency at baseline. Will also check a COVID PCR given the increasing numbers of COVID in the general population. Or encourage incentive spirometry. Will continue to monitor.
[2023-08-26] VITALS: BP 130/76; PULSE 104; RESP 18; TEMP 37.9; O2SAT 96
[2023-08-26 00:51] LABS: Basophils Absolute Auto 0.1 K/mm3 (0.0-0.1); Basophils Percent Auto 0.6 % (0.2-1.2); Eosinophils Percent Auto 0.3 % (0-4.4); Hematocrit 33.2 % (37.0-47.0); Hemoglobin 10.5 g/dL (12.0-15.0); Immature Granulocyte Absolute 0.03 K/mm3 (0.00-0.031); Immature Granulocyte Percent A 0.2 % (0-0.5); Lymphocytes Absolute Auto 2.67 K/mm3 (0.9-3.2); Lymphocytes Percent Auto 21.9 % (18.3-44.2); Mean Corpuscular HGB Conc 31.6 g/dl (32-36); Mean Corpuscular Hemoglobin 29.8 pg (26-34); Mean Corpuscular Volume 94.3 fl (80-100); Mean Platelet Volume 9.7 fl (7.4-10.4); Monocytes Absolute Auto 1.3 K/mm3 (0.1-0.6); Monocytes Percent Auto 10.3 % (2.6-8.5); Neutrophils Absolute Auto 8.1 K/mm3 (1.3-6.7); Neutrophils Percent Auto 66.7 % (45.5-73.1); Platelet Count Result 382 k/mm3 (150-375); Red Blood Count 3.52 M/mm3 (4.2-5.4); Red Cell Distribution Width 15.5 % (11.5-14.5); White Blood Count 12.2 K/mm3 (4.5-10.0)
[2023-08-26 00:57] LABS: Appearance Urine Clear (Clear); Bacteria Urine None Seen /hpf; Bilirubin Urine Negative (Negative); Blood Urine 3+ (Negative); Color Urine Yellow (Yellow); Glucose Urine UA Negative (Negative); Ketones Urine Negative (Negative); Leukocyte Esterase Ur Trace LEU/UL (Negative); Nitrate Urine Negative (Negative); Protein Urine 1+ mg/dL (Negative); RBC Urine 51-100 /hpf (0-2); Specific Grav Ur 1.014 (1.001-1.035); Squamous Epithelial Cell Urine None seen /hpf (Few); Urobilinogen Urine 0.2 mg/dL (<2.0); pH Urine 7.5 (5.0-9.0)
[2023-08-26 00:58] LABS: Add Urine Microscopic? YES
[2023-08-26 01:05] LABS: Anion Gap 8 mmol/L (8-16); Blood Urea Nitrogen 11 mg/dL (7-17); Carbon Dioxide 28 mmol/L (22-30); Chloride 98 mmol/L (98-107); Estimated CRCL calculation 82 ml/min; Estimated Glomerular Filt Rate > 60; Glucose 102 mg/dL (65-110); Potassium 3.5 mmol/L (3.4-5.0); Sodium 134 mmol/L (137-145)
[2023-08-26 01:07] LABS: Lactic Acid Reflex 1.2 mmol/L (0.7-2.0)
[2023-08-26] MEDS: HYDROcodone/acetaminophen (*CRX) 5-325 MG TABLET PO ×2 (01:10→08:44)
[2023-08-26 01:26] LABS: Influenza A QL RT-PCR Negative (Negative); Influenza B QL RT-PCR Negative (Negative); SARS-CoV-2 RNA PCR Negative (Negative)
[2023-08-26] MEDS: ceFAZolin 1 GM/NS 50 ML 1 GM/50 ML BAG IVPB ×2 (03:03→08:38)
[2023-08-26 05:09] VITALS: BP 155/81; PULSE 99; RESP 20; TEMP 37.8; O2SAT 95
[2023-08-26] MEDS: LEVOTHYROXINE SODIUM 25 MCG TABLET PO (06:07)
[2023-08-26 06:40] LABS: Hematocrit 33.6 % (37.0-47.0); Hemoglobin 10.4 g/dL (12.0-15.0); Mean Corpuscular Hemoglobin 29.4 pg (26-34); Mean Corpuscular Volume 94.9 fl (80-100); Platelet Count Result 357 k/mm3 (150-375); Red Blood Count 3.54 M/mm3 (4.2-5.4); Red Cell Distribution Width 15.4 % (11.5-14.5); White Blood Count 10.9 K/mm3 (4.5-10.0)
[2023-08-26 06:41] LABS: Basophils Absolute Auto 0.1 K/mm3 (0.0-0.1); Basophils Percent Auto 0.5 % (0.2-1.2); Eosinophils Absolute Auto 0.1 K/mm3 (0-0.3); Eosinophils Percent Auto 0.7 % (0-4.4); Immature Granulocyte Absolute 0.03 K/mm3 (0.00-0.031); Immature Granulocyte Percent A 0.3 % (0-0.5); Lymphocytes Absolute Auto 2.06 K/mm3 (0.9-3.2); Lymphocytes Percent Auto 18.9 % (18.3-44.2); Mean Platelet Volume 9.5 fl (7.4-10.4); Monocytes Absolute Auto 1.5 K/mm3 (0.1-0.6); Monocytes Percent Auto 13.4 % (2.6-8.5); Neutrophils Absolute Auto 7.2 K/mm3 (1.3-6.7); Neutrophils Percent Auto 66.2 % (45.5-73.1)
[2023-08-26 06:55] LABS: Albumin Level 4.2 g/dL (3.5-5.1); Anion Gap 7 mmol/L (8-16); Blood Urea Nitrogen 9 mg/dL (7-17); Carbon Dioxide 29 mmol/L (22-30); Chloride 99 mmol/L (98-107); Estimated CRCL calculation 91 ml/min; Estimated Glomerular Filt Rate > 60; Glucose 120 mg/dL (65-110); Phosphorus 3.7 mg/dL (2.5-4.5); Potassium 3.5 mmol/L (3.4-5.0); Sodium 135 mmol/L (137-145)
[2023-08-26 07:30] VITALS: PULSE 107; RESP 18; O2SAT 97
[2023-08-26] MEDS: FLUTICASONE/SALMETEROL 230-21 MCG INHALER 1 PUFF 2 PUFF INHALATION (07:36)
[2023-08-26] MEDS: FLUTICASONE PROP 110 MCG INHALER 12 GM (*SP) 1 PUFF INHALATION (07:36)
[2023-08-26] MEDS: UMECLIDINIUM BROMIDE 62.5 MCG ELLIPTA 1 PUFF INHALATION (07:37)
--- NOTE | 2023-08-26 08:19 | WPDANESPN ---
Anes - Prog Note Post-Op Date/Time: 08/26/23 08:19 Cardiovascular status: normal Respiratory status: normal Airway patency: baseline Mental status: baseline Post-Op hydration status: normal Vital Signs: Last Vital Signs Temp 37.8 C H 08/26/23 05:09 Pulse 107 H 08/26/23 07:30 Resp 18 08/26/23 07:30 BP 155/81 H 08/26/23 05:09 Pulse Ox 97 08/26/23 07:30 O2 Del Method Room Air 08/26/23 07:30 O2 Flow Rate 6 08/25/23 11:51 Pain Score (VAS): 01/05 I/O: Intake & Output 08/25/23 08/26/23 08/26/23 23:59 07:59 15:59 Intake Total 1330 800 Output Total 2500 1750 Balance -1170 -950 Laboratory Tests 08/26/23 06:17 08/26/23 06:17 08/25/23 08/25/23 08/25/23 23:16 23:17 23:18 WBC 12.2 H RBC 3.52 L Hgb 10.5 L Hct 33.2 L MCV 94.3 MCH 29.8 MCHC 31.6 L RDW 15.5 H Plt Count 382 H MPV 9.7 Immature Gran % (Auto) 0.2 Neut % (Auto) 66.7 Lymph % (Auto) 21.9 [place] % (Auto) 10.3 H Eos % (Auto) 0.3 Baso % (Auto) 0.6 Lymph # (Auto) 2.67 [place] # (Auto) 1.3 H Eos # (Auto) 0.0 Baso # (Auto) 0.1 Abs Immat Gran (auto) 0.03 Absolute Neuts (auto) 8.1 H Absolute Nucleated RBC 0.0 Nucleated RBC % 0.0 Sodium 134 L Potassium 3.5 Chloride 98 Carbon Dioxide 28 Anion Gap 8 BUN 11 Creatinine 0.90 Estim Creat Clear Calc 82 Estimated GFR > 60 Glucose 102 Lactic Acid 1.2 Calcium 9.0 Phosphorus Albumin Urine Color Yellow Urine Appearance Clear Urine pH 7.5 Ur Specific [place] 1.014 Urine Protein 1+ H Urine Glucose (UA) Negative Urine Ketones Negative Ur Blood (Man) 3+ H Urine Nitrate Negative Urine Bilirubin Negative Urine Urobilinogen 0.2 Leukocyte Esterase Rfl Trace H Urine RBC 51-100 Urine WBC 6-10 H Ur Squamous Epith Cells None seen Urine Bacteria None seen Urine Casts 3-5 Influenza A (RT-PCR) Negative Influenza B (RT-PCR) Negative SARS-CoV-2 RNA (RT-PCR) Negative 08/26/23 06:17 WBC 10.9 H RBC 3.54 L Hgb 10.4 L Hct 33.6 L MCV 94.9 MCH 29.4 MCHC 31.0 L RDW 15.4 H Plt Count 357 MPV 9.5 Immature Gran % (Auto) 0.3 Neut % (Auto) 66.2 Lymph % (Auto) 18.9 [place] % (Auto) 13.4 H Eos % (Auto) 0.7 Baso % (Auto) 0.5 Lymph # (Auto) 2.06 [place] # (Auto) 1.5 H Eos # (Auto) 0.1 Baso # (Auto) 0.1 Abs Immat Gran (auto) 0.03 Absolute Neuts (auto) 7.2 H Absolute Nucleated RBC 0.0 Nucleated RBC % 0.0 Sodium 135 L Potassium 3.5 Chloride 99 Carbon Dioxide 29 Anion Gap 7 L BUN 9 Creatinine 0.80 Estim Creat Clear Calc 91 Estimated GFR > 60 Glucose 120 H Lactic Acid Calcium 9.0 Phosphorus 3.7 Albumin 4.2 Urine Color Urine Appearance Urine pH Ur Specific [place] Urine Protein Urine Glucose (UA) Urine Ketones Ur Blood (Man) Urine Nitrate Urine Bilirubin Urine Urobilinogen Leukocyte Esterase Rfl Urine RBC Urine WBC Ur Squamous Epith Cells Urine Bacteria Urine Casts Influenza A (RT-PCR) Influenza B (RT-PCR) SARS-CoV-2 RNA (RT-PCR) Post-procedural complaints: none Patient Feedback: Patient satisfied with anesthetic care.
[2023-08-26] MEDS: LORATADINE 10 MG TABLET 180 MG PO (08:40)
[2023-08-26] MEDS: RIVAROXABAN 20 MG TABLET PO (08:41)
[2023-08-26] MEDS: PANTOPRAZOLE 40 MG TABLET PO (08:41)
[2023-08-26] MEDS: DOXYCYCLINE HYCLATE 100 MG TABLET PO (08:41)
[2023-08-26] MEDS: lamoTRIgine 100 MG TABLET 200 MG PO (08:41)
[2023-08-26] MEDS: THEOPHYLLINE 300 MG ER 12 HR TABLET PO (08:41)
[2023-08-26] MEDS: FUROSEMIDE 40 MG TABLET PO (08:41)
[2023-08-26] MEDS: LIOTHYRONINE SODIUM 5 MCG TABLET PO (08:41)
[2023-08-26] MEDS: FOLIC ACID 1 MG TABLET PO (08:41)
[2023-08-26] MEDS: amLODIPine BESYLATE 5 MG TABLET 10 MG PO (08:41)
[2023-08-26] MEDS: ONDANSETRON INJ 4 MG/2 ML VIAL IV PUSH (08:41)
[2023-08-26 08:45] VITALS: PULSE 82; RESP 16; TEMP 36.8; O2SAT 98
[2023-08-26] MEDS: ramipriL 5 MG CAPSULE PO (08:47)
--- NOTE | 2023-08-26 08:47 | PCOTNOTE ---
Pt declined to participate in therapy treatment right now due to increase pain and nausea. Pt states that she will be receiving pain medication shortly, but does not want to participate in anything until later.
[2023-08-26] MEDS: HYDROmorphone HCL INJ (*CRX) 1 MG/ML SYR 0.5 MG IV PUSH ×2 (08:48→13:06)
[2023-08-26 09:08] VITALS: BP 142/73; PULSE 101; RESP 20; TEMP 37.9; O2SAT 96
--- NOTE | 2023-08-26 09:14 | PM.PNORT ---
Progress Note: A&P Assessment and Plan (1) Bimalleolar fracture of left ankle: Qualifiers: Encounter type: subsequent encounter Fracture type: closed Fracture healing: with routine healing Qualified Code(s): S82.842D - Displaced bimalleolar fracture of left lower leg, subsequent encounter for closed fracture with routine healing Code(s): S82.842A - Displaced bimalleolar fracture of left lower leg, initial encounter for closed fracture Status: Acute Assessment and Plan: Postoperative day 1 open reduction internal fixation left ankle fracture. Operative treatment reviewed with the patient. Fixation of both medial and lateral fractures. Pain control -pain increased when nerve block wore off. Discussed medication. Will transition to Percocet at more frequent interval. Dilaudid for breakthrough. PT/OT with nonweightbearing left leg. DVT prophylaxis with Xarelto. Disposition when stable. Subjective Subjective Date/Time Seen: 08/26/23 09:14 Post Op day: 1 Principal diagnosis: Left ankle fracture Interval history: Patient complains of pain left ankle. Awake and alert. Oriented to person, place and time. pain worse after nerve block wore off. Exam Const: General: No confusion Orientation/consciousness: No confusion HENMT: Head: normal to inspection, normocephalic and atraumatic Neck: Neck: supple and nontender Chest: Chest palpation & inspection: normal inspection of the chest Resp: Effort & Inspection: normal respiratory effort and no audible wheezes Cardio: Rate: regular rate Extrem: General: capillary refill normal Right upper extremity: normal to inspection Left upper extremity: normal to inspection Right lower extremity: normal to inspection and hip/thigh Details: normal to inspection Left lower extremity: hip/thigh Details: normal to inspection, knee Details: normal to inspection and knee ligament exam normal Details: anterior drawer test normal, valgus stress test normal, varus stress test normal and Masha's test normal, ankle (no calf tenderness) Details: abnormal to inspection ( Obvious swelling at the ankle joint), tenderness ( lateral malleolus), swelling (moderate lateral ankle), abnormal ROM Details: pain with active ROM Details: with plantar flexion and with dorsiflexion and with range as follows ( limited secondary to injury), crepitus Details: at the lateral malleolus and other ( good capillary refill in toes, 2+ DP pulse) and foot Details: normal capillary refill, toes with normal ROM, vascular exam Details: dorsalis pedis pulse present and motor-sensory exam Other: Left leg splint in place. Toes pink and warm. Able to move. Good sensation. Objective Data Vital Signs Vital Signs: Vital Signs - 24 hr 08/25/23 11:37 08/25/23 11:51 08/25/23 12:05 Temperature 97.2 F L Pulse Rate 75 76 95 Respiratory Rate 13 12 14 Blood Pressure 84/57 L 87/51 L 122/74 Pulse Oximetry 97 97 99 Oxygen Delivery Simple Face Mask Simple Face Mask Room Air Oxygen Flow Rate 6 6 08/25/23 12:20 08/25/23 12:34 08/25/23 12:50 Temperature 97.7 F Pulse Rate 96 95 87 Respiratory Rate 12 13 13 Blood Pressure 121/73 135/75 119/58 L Pulse Oximetry 96 97 98 Oxygen Delivery Room Air Room Air Oxygen Flow Rate 08/25/23 13:20 08/25/23 14:20 08/25/23 14:45 Temperature 97.6 F 98 F Pulse Rate 93 101 H Respiratory Rate 14 14 Blood Pressure 110/61 144/72 H Pulse Oximetry 95 100 Oxygen Delivery Room Air Oxygen Flow Rate 08/25/23 22:39 08/25/23 20:53 08/25/23 22:20 Temperature 100.3 F H 97.5 F L 100.3 F H Pulse Rate 108 H Respiratory Rate 18 Blood Pressure 150/75 H Pulse Oximetry 99 Oxygen Delivery Oxygen Flow Rate 08/25/23 23:38 08/26/23 00:00 08/25/23 20:00 Temperature 100.5 F H 100.3 F H Pulse Rate 104 H 104 H Respiratory Rate 18 18 Blood Pressure 130/76 Pulse Oximetry 96 96 Oxygen Delivery Room Air Oxygen Flow R
--- NOTE | 2023-08-26 11:12 | PC.NURSE ---
I spoke with Dr. Mei regarding the possibility of pt discharging today with home health. He stated that was permissible and he would have his office follow up with her tomorrow.
--- NOTE | 2023-08-26 11:13 | PC.NURSE ---
Pt called me to her room to insist of more pain med. I explained to her that she already had two pain pills and IV push pain med all within the last 90 minutes and she could not have any more for several hours. Pt kept insisting on more pain med. Pt was not exhibiting any signs or symptoms of pain.
--- NOTE | 2023-08-26 13:15 | ECG_ITS ---
Measurements Intervals [place] Rate: 98 P: 52 MS: 144 QRS: -3 QRSD: 109 T: -2 QT: 364 QTc: 465 Interpretive Statements SINUS RHYTHM MINIMAL VOLTAGE CRITERIA FOR LVH, CONSIDER NORMAL VARIANT [MEETS CRITERIA IN ONE OF: R(aVL), S(V1), R(V5), R(V5/V6)+S(V1)] NONSPECIFIC ST AND T-WAVE ABNORMALITY ABNORMAL ECG COMPARED TO ECG 08/25/2023 05:05:54 NO SIGNIFICANT CHANGES Electronically Signed On 08-27-2023 8:46:43 CDT by Danilo Asencio M.D.
--- NOTE | 2023-08-26 13:19 | PM.IMPN ---
Progress Note: A&P Assessment and Plan (1) Bimalleolar fracture of left ankle: Qualifiers: Encounter type: subsequent encounter Fracture healing: with routine healing Fracture type: closed Qualified Code(s): S82.842D - Displaced bimalleolar fracture of left lower leg, subsequent encounter for closed fracture with routine healing Code(s): S82.842A - Displaced bimalleolar fracture of left lower leg, initial encounter for closed fracture Status: Acute Assessment and Plan: Sustained a mechanical fall. Ankle has been splinted. Orthopedic surgeon consulted. Analgesics available as needed. 08/25: Patient underwent open reduction internal fixation displaced by malleolar ankle fracture the left. (2) Hypertension: Code(s): I10 - Essential (primary) hypertension Status: Acute Assessment and Plan: Blood pressures were reviewed 08/25 and they are stable. Continue antihypertensives and monitor. (3) Ear infection: Code(s): H66.90 - Otitis media, unspecified, unspecified ear Status: Acute Assessment and Plan: On day 7 of 7 of doxycycline. Continue. (4) Hypothyroidism: Code(s): E03.9 - Hypothyroidism, unspecified Status: Acute Assessment and Plan: Continue levothyroxine and liothyronine. (5) Asthma: Code(s): J45.909 - Unspecified asthma, uncomplicated Status: Acute Assessment and Plan: No acute issues. Continue maintenance inhalers. 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 Home medication approved will be reviewed by pharmacy administered by nursing. (8) Fever: Code(s): R50.9 - Fever, unspecified Status: Acute Assessment and Plan: Leukocytosis, tachycardia and fever CXR blood culture, lactic acid monitor one more day Subjective Date/time seen: 08/26/23 13:19 Interval history: patient is s/p ORIF Patient is tachycardic, fever and leukocytosis Ortho okay with discharge and coordinator of library services set up Home health however wants to work up patient for infection given the above Review of Systems Review of Systems: Twelve systems were reviewed. She has occasional fevers which she attributes to her common variable immunodeficiency. She denies current cold and flu symptoms, diarrhea, and dysuria. She is however currently on antibiotics for an ear infection and has 2 days remaining on that course. Except as documented, all other systems were reviewed and are negative. All systems reviewed & are unremarkable except as noted in HPI and below Exam Narrative: GENERAL: Generally well appearing, alert and oriented, in no apparent distress. HEENT: Pupils are equally round and briskly reactive to light. Extraocular muscles are intact. Oral mucous membranes are moist without lesions. NECK: The patient has no noted JVD. No adenopathy is appreciated. CHEST/LUNGS: Lungs are clear bilaterally without rhonchi, rales, or wheezes. There is no subcutaneous air appreciated. There is no tenderness to the chest wall. Left chest wall port is accessed. HEART: The patient has a regular rate and rhythm. No murmurs, rubs, or gallops are appreciated. Distal pulses are 2+. ABDOMEN: The patient?s abdomen is soft, nontender, and nondistended. Bowel sounds are positive. No peritoneal signs EXTREMITIES: Left ankle is splinted with good capillary refill motor and sensation to the exposed toes. Significant pain with any movement SKIN: The patient?s skin is warm and dry, without rashes or lesions. PSYCHIATRIC: The patient has normal mental status and has an appropriate affect at time of
[2023-08-26 14:00] VITALS: BP 116/76; PULSE 103; RESP 20; TEMP 36.9; O2SAT 100
[2023-08-26 14:15] LABS: Lactic Acid Reflex 0.8 mmol/L (0.7-2.0)
--- NOTE | 2023-08-26 14:41 | PM.DS ---
DS: Admitting Diagnosis Discharge Date 08/26/23 Admitting Diagnosis bimalleolar fracture DS: Discharge Diagnosis Discharge Diagnosis (1) Bimalleolar fracture of left ankle: Qualifiers: Encounter type: subsequent encounter Fracture healing: with routine healing Fracture type: closed Qualified Code(s): S82.842D - Displaced bimalleolar fracture of left lower leg, subsequent encounter for closed fracture with routine healing Code(s): S82.842A - Displaced bimalleolar fracture of left lower leg, initial encounter for closed fracture Status: Acute DS: Summary Hospital Course Hospital Course: This is a 53-year-old female with hypertension, asthma, hypothyroidism, fibromyalgia, common variable immunodeficiency, and deep venous thrombosis and pulmonary embolism on rivaroxaban who presented to the emergency department via private vehicle from home for evaluation of left ankle pain after a fall. The patient provides the following history. This morning the patient was shaving her legs and was sitting on the side of the bathtub. When she went to stand up she slept and turned her left ankle inward, causing her to fall. She had immediate pain in that left ankle and was unable to get herself up. EMS was summoned and she was brought in for evaluation. Radiographs showed a displaced bimalleolar fracture which was splinted. Unfortunately her pain is severe and she was unable to ambulate without multiple person assist and she is being admitted overnight for pain control and orthopedic consultation. She sustained no other injuries in the fall and she denies head trauma and loss of consciousness. s/p ORIF patient had mild temperature today 100.2, but not below 100.4 and no other record of temperature upto 100.2 or above 100.4 Lactic acid normal, CXR unremarkable, EKG showed Sinus rhythm with rate of 98 leukocytosis is markedly improving Patient will continue Doxycycline for ear infection and f/u with PCP Also continue f/u with ortho. please see topical management below for other details Assessment and Plan (1) Bimalleolar fracture of left ankle: ?Qualifiers: ?Encounter type:?subsequent encounter??Fracture healing:?with routine healing??Fracture type:?closed? Qualified Code(s):?S82.842D - Displaced bimalleolar fracture of left lower leg, subsequent encounter for closed fracture with routine healing ?Code(s): S82.842A - Displaced bimalleolar fracture of left lower leg, initial encounter for closed fracture ?Status:?Acute ?Assessment and Plan: Sustained a mechanical fall. Ankle has been splinted. Orthopedic surgeon consulted.? Analgesics available as needed. 08/25:? Patient underwent open reduction internal fixation displaced by malleolar ankle fracture the left. PT evaluated adn recommended home with home health (2) Hypertension: ?Code(s): I10 - Essential (primary) hypertension ?Status:?Acute ?Assessment and Plan: Blood pressures were reviewed 08/25 and they are stable.? Continue antihypertensives and monitor. (3) Ear infection: ?Code(s): H66.90 - Otitis media, unspecified, unspecified ear ?Status:?Acute ?Assessment and Plan: Continue Doxycycline (4) Hypothyroidism: ?Code(s): E03.9 - Hypothyroidism, unspecified ?Status:?Acute ?Assessment and Plan: Continue levothyroxine and liothyronine. (5) Asthma: ?Code(s): J45.909 - Unspecified asthma, uncomplicated ?Status:?Acute ?Assessment and Plan: No acute issues.? Continue maintenance inhalers. (6) Chronic anticoagulation: ?Code(s): Z79.01 - group home (current) use of anticoagulants ?Status:?Chronic ?Assessment and Plan: back on Xarelto (7) Common variable immunodeficiency: ?Code(s): D83.9 - Common variable immunodeficiency, unspecified ?Status:?Chronic ?Assessment and Plan: 08/25:? Patient is due for IVIG infusion today.? Home
[2023-08-26] MEDS: oxyCODONE/ACETAMINOPHEN (*CRX) 10-325 MG TABLET 1 TAB PO (14:49)
--- NOTE | 2023-08-26 18:50 | PC.NURSE ---
I received a call from pt stating that her pain meds (which Dr. De La Cruz had changed to Percocet 10 prior to discharge this morning) were not available at the [facility]'s pharmacy. She stated she was having a lot of pain and would need something. I just spoke with the hospitalist, Dr. Leiva, and explained to him that pt's pain meds were not transmitted. I further explained that nurses cannot transmit narcotics and that he would have to transmit the orders to her preferred pharmacy. After discussing the problem and pt's situation, Dr. Leiva stated that he would attempt to transmit the Percocet 10 to pt's preferred pharmacy [facility].
== END 2023-08-26 15:53 | disposition home health service (06) | DRG 493 ==
LOC: ANHED 16:46 → ANH3MEDSUR 17:11
PROVIDERS: Internal Medicine; Nurse Practitioner; Orthopaedic Surgery; Admitting Provider Internal Medicine; Emergency Provider Physician Assistant; PCP Student in an Organized Health Care Education/Training Program; Visit Provider Internal Medicine
PROC: 0QSH04Z Reposition Left Tibia with Internal Fixation Device, Open Approach (ICD-10-PCS; principal; 2023-08-25 12:00)
DX: S82.842A Displaced bimalleolar fracture of left lower leg, initial encounter for closed fracture (principal); D83.9 Common variable immunodeficiency, unspecified; W18.2XXA Fall in (into) shower or empty bathtub, initial encounter; M19.90 Unspecified osteoarthritis, unspecified site; E78.5 Hyperlipidemia, unspecified; J44.9 Chronic obstructive pulmonary disease, unspecified; K21.9 Gastro-esophageal reflux disease without esophagitis; M79.7 Fibromyalgia; H66.90 Otitis media, unspecified, unspecified ear; E03.9 Hypothyroidism, unspecified; I10 Essential (primary) hypertension; E28.2 Polycystic ovarian syndrome; R50.9 Fever, unspecified; I73.00 Raynaud's syndrome without gangrene; E66.01 Morbid (severe) obesity due to excess calories; Z68.39 Body mass index [BMI] 39.0-39.9, adult; Z86.718 Personal history of other venous thrombosis and embolism; Z86.711 Personal history of pulmonary embolism; Z90.49 Acquired absence of other specified parts of digestive tract; Z79.01 Long term (current) use of anticoagulants; Z11.52 Encounter for screening for COVID-19
CPT/HCPCS: 29515; 36415; 71045; 73610; 80048; 80069; 81001; 83605; 85025; 87040; 87086; 87636; 93005; 94640; 96375; 96376; 97116; 97161; 97165; 97530; 97535; 99199; 99285; A9270; C1713; C1769; G0378; J0330; J0690; J1100; J1170; J1200; J2250; J2270; J2405; J2704; J3010; J7120

== ENCOUNTER → 2023-11-28 10:30 | Outpatient (CLI) | payer MEDICARE, OTHER, SELFPAY ==
--- NOTE | ~2023-11-28 | US_ITS ---
EXAMINATION: US pelvic complete w TV DATE: 11/28/2023 10:55 INDICATION: Postmenopausal bleeding TECHNIQUE: Multiple transabdominal and endovaginal sonographic images of the pelvis were obtained. COMPARISON: 05/02/2023 FINDINGS: The uterus measures 3.5 x 1.5 x 2.6 cm. The endometrial complex measures 3 mm in thickness. 4 mm ane choic nabothian cyst at the cervix. The right ovary measures 1.8 x 1.3 x 1.5 cm. The left ovary measu res 1.8 x 1.0 x 1.5 cm. After flow identified on color Doppler at both ovaries. There is no free flui d in the pelvis. IMPRESSION: 1. Normal postmenopausal COVID ultrasound. Reviewed, dictated and finalized at location A. 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
== END ==
PROVIDERS: PCP Student in an Organized Health Care Education/Training Program; Visit Provider Obstetrics & Gynecology Gynecology
DX: N95.0 Postmenopausal bleeding (principal)
CPT/HCPCS: 76830; 76856

== ENCOUNTER 2024-01-21 11:34 | Outpatient (CLI) | payer MEDICARE, OTHER, SELFPAY ==
--- NOTE | ~2024-01-21 | XR_ITS ---
XR chest 2V 01/21/2024 11:52 Indication: Presence of vascular implants. Dyspnea. Procedure: 2 view chest Comparison: Comparison to multiple prior studies sequentially, with oldest reviewed study dated 05/09. Findings: Heart size normal. Portacatheter tip in the SVC. No focal air space disease, pulmonary chayo a, pleural effusion or suspected pneumothorax. Left basilar atelectasis. Impression: 1: Left basilar atelectasis. Reviewed, dictated and finalized at location B. Impression: 1: Left basilar atelectasis.
== END 2024-01-21 11:35 | disposition home or self-care (01) ==
PROVIDERS: PCP Student in an Organized Health Care Education/Training Program; Visit Provider Surgery
DX: Z95.828 Presence of other vascular implants and grafts (principal); R91.8 Other nonspecific abnormal finding of lung field
CPT/HCPCS: 71046

== ENCOUNTER 2024-01-29 10:07 | Outpatient (CLI) | payer MEDICARE, OTHER, SELFPAY | END 2024-01-29 10:08 | disposition home or self-care (01) | LOC: ANHOUTPT 10:08 | PROVIDERS: PCP Student in an Organized Health Care Education/Training Program; Visit Provider Surgery | DX: T82.49XA Other complication of vascular dialysis catheter, initial encounter (principal); Y83.8 Other surgical procedures as the cause of abnormal reaction of the patient, or of later complication, without mention of misadventure at the time of the procedure | CPT/HCPCS: 96523 ==

== ENCOUNTER 2024-02-25 14:01 | Outpatient (CLI) | payer MEDICARE, OTHER, SELFPAY ==
--- NOTE | ~2024-02-25 | MR_ITS ---
EXAMINATION: MR knee RT wo con DATE: 02/25/2024 14:40 INDICATION: Pain and swelling of right knee TECHNIQUE: Magnetic resonance imaging (MRI) of the right knee was performed without intravenous contr ast. Sequences included axial PD-weighted FS FSE, coronal PD-weighted FSE and PD-weighted FS FSE, sag ittal PD-weighted FSE, and sagittal T2-weighted FS FSE. COMPARISON: 05/10/2022 FINDINGS: Medial compartment: Complex tear of the posterior horn involving oblique undersurface and vertical components, likely wit h interspersed granulation tissue. Moderate diffuse cartilage thinning. Mild osteophytosis. Lateral compartment: Intact meniscus. Moderate diffuse cartilage thinning. Mild osteophytosis. Patellofemoral compartment: Mild cartilage signal abnormality in the lateral facet. Mild thinning of cartilage in the medial face t. Intact retinacula. Ligaments and tendons: The ACL, PCL, MCL, and LCL are intact. Remaining flexor and extensor tendons are intact. Fluid: No significant fluid collection. Osseous/other: No suspicious focal or diffuse marrow signal. Bone island in the medial condyle. IMPRESSION: Chronic tear of the posterior horn, medial meniscus. Mild tricompartmental osteoarthritis. Reviewed, dictated and finalized at location K.
== END 2024-02-25 14:02 ==
LOC: MICIMG 14:02
PROVIDERS: PCP Student in an Organized Health Care Education/Training Program; Visit Provider Student in an Organized Health Care Education/Training Program
DX: M25.461 Effusion, right knee (principal); M17.11 Unilateral primary osteoarthritis, right knee
CPT/HCPCS: 73721

== ENCOUNTER 2024-03-04 11:09 | Emergency (ER) | payer MEDICARE, OTHER, SELFPAY ==
--- NOTE | ~2024-03-04 | US_ITS ---
EXAMINATION: US venous doppler UE LT DATE: 03/04/2024 12:53 INDICATION: Left upper limb pain TECHNIQUE: Grayscale images without and with compression and Doppler images of the left upper extremi ty veins were obtained. COMPARISON: None. FINDINGS: The left internal jugular vein, subclavian vein, axillary vein, brachial vein, basilic vein, cephalic vein, radial vein, and ulnar vein are patent. IMPRESSION: 1. Patent left upper extremity veins. No evidence of venous thrombosis. Reviewed, dictated and finalized at location A.
--- NOTE | ~2024-03-04 | XR_ITS ---
EXAMINATION: XR chest 2V DATE: 03/04/2024 12:22 INDICATION: Port-A-Cath problems with pain radiating to the left arm TECHNIQUE: PA and lateral views of the chest were obtained. COMPARISON: Chest radiograph dated 01/21/2024 FINDINGS: Again seen is a left subclavian central venous port catheter with distal tip at the cephalad superior vena cava. Since the prior study the reservoir has flipped with the access port directed right poste riorly. Unchanged mild streaky lingular atelectasis/scarring at the left lung base. No other airspace opaciti es, pulmonary edema, pleural effusion or pneumothorax. The cardiomediastinal silhouette is normal. Mo derate thoracic spondylosis with chronic mild anterior wedging of a midthoracic vertebral body. Anuja cystectomy clips in right upper quadrant. IMPRESSION: 1. Left subclavian central venous port catheter reservoir has flipped now with the access port direct ed right posteriorly. 2. Chronic mild lingular atelectasis/scarring. No acute cardiopulmonary disease. Reviewed, dictated and finalized at location A. IMPRESSION: 1. Left subclavian central venous port catheter reservoir has flipped now with the access port directed right posteriorly. 2. Chronic mild lingular atelectasis/scarring. No acute cardiopulmonary disease .
[2024-03-04 11:10] VITALS: BP 147/86; PULSE 98; RESP 16; TEMP 37.1; O2SAT 99
--- NOTE | 2024-03-04 12:00 | ED.GENADULT ---
HPI - General Adult General Chief complaint: Recheck/Abnormal Lab/Rx Stated complaint: left upper chest discomfort Time Seen by Provider: 03/04/24 11:57 History of Present Illness HPI narrative: Patient is a 53 year old female with history of HTN, DVT/PE, COPD, CVID here with left sided upper chest pain. Patient notes pain began a couple of days ago, is located in his left upper chest around the area of her port and radiates into her left neck and left arm. She denies associated nausea, shortness of breath, dizziness. She denies prior history of AL. She notes she has had ongoing issues with her ports in the past, last attempt to access was a couple of weeks ago at our vascular lab. She has followed with Dr. Lazar regarding her port for may years, is scheduled for a revision at the end of this month. She does take xeralto, last took a dose around 9 pm last night. Related Data Home Medications Medication Instructions Recorded Confirmed albuterol sulfate 2.5 mg/3 mL 2.5 mg inhalation Q6H PRN Dyspnea 09/03/19 01/28/24 (0.083 %) solution for nebulization amlodipine 10 mg tablet 10 mg PO DAILY 09/03/19 01/28/24 epinephrine 0.3 mg/0.3 mL 0.3 mg subcut DIRECTED PRN 09/03/19 01/28/24 injection, auto-injector Anaphylaxis ergocalciferol (vitamin D2) 1,250 50,000 unit PO WEEKLY 09/03/19 01/28/24 mcg (50,000 unit) capsule furosemide 40 mg tablet 40 mg PO DAILY 09/03/19 01/28/24 guaifenesin 600 mg tablet, 600 mg PO BID PRN Cough 09/03/19 01/28/24 extended release 12 hr (Mucinex) lamotrigine 200 mg tablet 200 mg PO BID 09/03/19 01/28/24 omeprazole 20 mg capsule,delayed 60 mg PO BID 09/03/19 01/28/24 release ondansetron HCl 4 mg tablet 4 mg PO Q8H PRN Nausea And Vomiting 09/03/19 01/28/24 rivaroxaban 20 mg tablet (Xarelto) 20 mg PO DAILY 09/03/19 01/28/24 theophylline 300 mg 300 mg PO BID 09/03/19 01/28/24 tablet,extended release,12 hr tiotropium bromide 18 mcg capsule 18 mcg inhalation DAILY 09/03/19 01/28/24 with inhalation device (Spiriva with HandiHaler) mometasone-formoterol HFA 200 2 puff inhalation BID 11/03/19 01/28/24 mcg-5 mcg/actuation aerosol inhaler (Dulera) fexofenadine 180 mg tablet 180 mg PO DAILY 11/04/20 01/28/24 (Nneka Allergy) ramipril 5 mg capsule (Altace) 5 mg PO BID 11/04/20 01/28/24 diphenhydramine HCl 25 mg capsule 50 mg PO Q28D 01/25/21 01/28/24 (Allergy (diphenhydramine)) fluticasone propionate 110 1 puff inhalation BID 01/25/21 01/28/24 mcg/actuation HFA aerosol inhaler (Flovent HFA) folic acid 1 mg tablet 1 mg PO QAM 03/02/23 01/28/24 levothyroxine 25 mcg tablet 50 mcg PO QMWF 03/02/23 01/28/24 (Unithroid) Ivig See Rx Instructions .Route .COMPLEX 04/04/23 01/28/24 liothyronine 5 mcg tablet 5 mcg PO BID 05/02/23 01/28/24 acetaminophen 325 mg tablet 650 mg PO Q6H PRN pain or fever 08/24/23 01/28/24 (Tylenol) lansoprazole 15 mg capsule,delayed 15 mg PO DAILY 08/24/23 01/28/24 release (Prevacid 24Hr) levothyroxine 25 mcg tablet 25 mcg PO QTUTHSASU 08/24/23 01/28/24 (Unithroid) Allergies Allergy/AdvReac Type Severity Reaction Status Date / Time aspirin Allergy Severe anaphylaxis Verified 01/28/24 09:47 aztreonam Allergy Severe RASH Verified 01/28/24 09:47 ibuprofen Allergy Severe Anaphylaxis Verified 01/28/24 09:47 NSAIDS (Non-Steroidal Allergy Severe Anaphylactic Verified 01/28/24 09:47 Anti-Inflamma Shock shellfish derived Allergy Severe Swelling Verified 01/28/24 09:47 of Lip/Tongue/Throat adhesive Allergy Intermediate rash Verified 01/28/24 09:47 ciprofloxacin Allergy Intermediate Hives Verified 01/28/24 09:47 latex Allergy Intermediate Dyspnea Verified 01/28/24 09:47 nifedipine Allergy Intermediate Urticaria Verified 01/28/24 09:47 sulfamethizole Allergy Intermediate Urticaria Verified 01/28/24 09:47 terbinafine Allergy Intermediate Urticaria Verified 01/28/24 09:47 trimethoprim Allergy Intermediate Hives Verified 01/28/24 09:47 vancomycin Allergy Intermedi
--- NOTE | 2024-03-04 13:00 | ECG_ITS ---
SEE SCANNED COPY FOR CONFIRMED REPORT. MTDD
[2024-03-04 13:26] VITALS: BP 126/91; PULSE 85; RESP 20; O2SAT 99
[2024-03-04 13:29] LABS: Basophils Absolute Auto 0.1 K/mm3 (0.0-0.1); Basophils Percent Auto 0.8 % (0.2-1.2); Eosinophils Absolute Auto 1.1 K/mm3 (0-0.3); Eosinophils Percent Auto 11.6 % (0-4.4); Hematocrit 38.9 % (37.0-47.0); Hemoglobin 12.3 g/dL (12.0-15.0); Immature Granulocyte Absolute 0.03 K/mm3 (0.00-0.031); Immature Granulocyte Percent A 0.3 % (0-0.5); Lymphocytes Absolute Auto 2.36 K/mm3 (0.9-3.2); Lymphocytes Percent Auto 25.9 % (18.3-44.2); Mean Corpuscular HGB Conc 31.6 g/dl (32-36); Mean Corpuscular Hemoglobin 29.4 pg (26-34); Mean Corpuscular Volume 92.8 fl (80-100); Mean Platelet Volume 9.2 fl (7.4-10.4); Monocytes Absolute Auto 0.6 K/mm3 (0.1-0.6); Monocytes Percent Auto 6.8 % (2.6-8.5); Neutrophils Percent Auto 54.6 % (45.5-73.1); Platelet Count Result 406 k/mm3 (150-375); Red Blood Count 4.19 M/mm3 (4.2-5.4); Red Cell Distribution Width 15.6 % (11.5-14.5); White Blood Count 9.1 K/mm3 (4.5-10.0)
[2024-03-04] MEDS: MORPHINE SULFATE (*CRX) 4 MG/ML INJ IV PUSH (13:40)
[2024-03-04] MEDS: ONDANSETRON INJ 4 MG/2 ML VIAL IV PUSH (13:40)
[2024-03-04 13:41] LABS: Alanine Aminotransferase 15 U/L (6-35); Albumin Level 4.8 g/dL (3.5-5.1); Alkaline Phosphatase 71 U/L (38-126); Anion Gap 10 mmol/L (4-12); Aspartate Amino Transferase 23 U/L (14-36); Bilirubin,Total 0.6 mg/dL (0.2-1.3); Blood Urea Nitrogen 13 mg/dL (7-17); Calcium 9.6 mg/dL (8.4-10.2); Carbon Dioxide 23 mmol/L (22-30); Chloride 107 mmol/L (98-107); Estimated CRCL calculation 68 ml/min; Estimated Glomerular Filt Rate > 60; Glucose 91 mg/dL (65-110); Potassium 3.6 mmol/L (3.4-5.0); Sodium 140 mmol/L (137-145)
[2024-03-04 13:44] LABS: INR 1.3; Prothrombin Time 16.8 Seconds (11.1-14.7)
[2024-03-04 13:45] VITALS: BP 143/78; PULSE 85; RESP 12; O2SAT 94
[2024-03-04 13:45] LABS: Partial Thromboplastin Time 26.4 Seconds (22.3-36.8)
[2024-03-04 13:46] VITALS: BP 130/86; PULSE 84; RESP 14; O2SAT 93
[2024-03-04 13:52] LABS: Troponin I < 0.012 ng/mL (0.000-0.034)
[2024-03-04 14:01] VITALS: BP 144/87; PULSE 81; RESP 15; O2SAT 93
[2024-03-04 14:16] VITALS: BP 140/80; PULSE 79; RESP 14
== END 2024-03-04 14:58 | disposition home or self-care (01) ==
PROVIDERS: Emergency Provider Student in an Organized Health Care Education/Training Program; PCP Student in an Organized Health Care Education/Training Program
DX: T82.524A Displacement of infusion catheter, initial encounter (principal); R07.9 Chest pain, unspecified; D83.9 Common variable immunodeficiency, unspecified; J44.9 Chronic obstructive pulmonary disease, unspecified; J43.9 Emphysema, unspecified; I10 Essential (primary) hypertension; I73.00 Raynaud's syndrome without gangrene; E78.5 Hyperlipidemia, unspecified; E28.2 Polycystic ovarian syndrome; K21.9 Gastro-esophageal reflux disease without esophagitis; M79.7 Fibromyalgia; M17.0 Bilateral primary osteoarthritis of knee; K58.9 Irritable bowel syndrome, unspecified; Z86.718 Personal history of other venous thrombosis and embolism; Z86.711 Personal history of pulmonary embolism; Z90.49 Acquired absence of other specified parts of digestive tract; Y84.8 Other medical procedures as the cause of abnormal reaction of the patient, or of later complication, without mention of misadventure at the time of the procedure
CPT/HCPCS: 36415; 71046; 80053; 84484; 85025; 85610; 85730; 93005; 93971; 96374; 96375; 99284; J2270; J2405

== ENCOUNTER 2024-03-05 01:05 | Day surgery (SDC) | payer MEDICARE, OTHER, SELFPAY ==
--- NOTE | 2024-03-04 17:13 | SUR.PREOP ---
Report to the Outpatient Waiting Room, entrance under the green pavilion located off [facility], at time 1245 on date 03/05/24. Planned Procedure Time: 1445. Time changes happen often and if your time is changed the preop area will call you the afternoon before. - You and your visitor will be asked to self-screen and do not enter if you have any COVID symptoms. - A mask is optional within the hospital at this time. Patients may have clear liquids (water, carbonated beverages, clear teas, apple juice) until 3 hours prior to surgery with a maximum of 20 ounces. - NO CLEAR LIQUIDS AFTER 11:45AM - No food from midnight until time of surgery - Infants may have breast milk until 4 hours before surgery, formula 6 hours prior to surgery. - Children will be allowed to drink immediately following surgery. If applicable, please bring a bottle or sippy cup to assist with drinking. Juice, water, soda, and popsicles are readily available. For infants on formula, please bring formula the day of surgery. Pacifiers are allowed. Take the following medications with a SIP of water the morning of surgery: amlodipine, folic acid, hydrocodone, lamotrigine, unithroid, liothyronine, theophylline Please no make-up, nail welsh, hairspray, perfume, deodorant, or body powder the day of surgery. No jewelry (including any body piercings) or valuables the day of surgery, leave them at home. Please take a shower or bath the night before, or the morning of, surgery with an antibacterial soap. Wear comfortable, loose fitting clothing. Children are encouraged to wear pajamas. - Jewelry must be removed prior to entering the operating room. Rings and piercings that are not removed may be cut off. - The hospital will not accept responsibility for valuables. - Please leave all valuables, including medications, at home the day of surgery. If you are going home after surgery, a licensed otr van cdl truck driver must drive you home. - NO public transportation without another adult if you receive anesthesia. - We recommend that an adult stay with you for 24 hours following discharge. - We also recommend that you do not drive, make important decision, drink alcoholic beverages, or take any drugs that were not prescribed by your health care provider for at least 24 hours after your discharge time. For Pediatric surgeries, we recommend two adults accompany the child home. Follow any additional instructions given to you from your surgeon. If you or anyone in your household have experienced Covid symptoms in the past week, please notify your surgeon or the nurse liaison at the phone number below for possible testing. Telephone instructions given to FEDERICO TORRES and asked if any additional questions and then verbalized understanding. Patient advised to call surgeon office or pre surgery nurse liaison [phone] if any additional questions.
--- NOTE | ~2024-03-05 | XR_ITS ---
EXAMINATION: XR fl guide central line place DATE: 03/05/2024 20:59 INDICATION: Port catheter removal and replacement TECHNIQUE: 3 fluoroscopic images of the chest were obtained during procedure performed by Dr. Lazar. R adiologist was not present for the imaging or procedure. The amount of fluoroscopy time used during t his procedure was 2.3 minutes. COMPARISON: 03/04/2024 which is been returned to a normal configuration. FINDINGS: Images redemonstrate a left subclavian central venous port catheter with distal tip . To advanced now to the caudal superior vena cava. The access port which previously appeared flipped towards the [facility] t now demonstrates a normal configuration. There is been placement of a new right internal jugular ce ntral venous port catheter with distal tip near the superior cavoatrial junction. IMPRESSION: 1. Placement of a new right internal jugular central venous port catheter with distal tip near the chavez perior cavoatrial junction. 2. Left subclavian central venous port catheter has changed in position with distal tip now extending to the caudal superior vena cava and with the previously flipped access port now having been returne d to a normal configuration. Reviewed, dictated and finalized at location A. IMPRESSION: 1. Placement of a new right internal jugular central venous port catheter with distal tip near the superior cavoatrial junction. 2. Left subclavian central venous port catheter has changed in position with di stal tip now extending to the caudal superior vena cava and with the previously flipped access port now having been returned to a normal configuration.
--- NOTE | ~2024-03-05 | XR_ITS ---
EXAMINATION: XR chest port-a-cath/central DATE: 03/05/2024 21:40 INDICATION: Port catheter removal and replacement TECHNIQUE: frontal view of the chest was obtained. COMPARISON: Chest radiograph dated 03/04/2024 FINDINGS: Interval removal of a prior left subclavian central venous port catheter in place. New right internal jugular central venous port catheter with distal tip near the superior cavoatrial junction. Unchange d mild streaky lingular atelectasis/scarring at the left lung base. No new airspace opacities, pulmon johan edema, pleural effusion or pneumothorax. The cardiomediastinal silhouette is normal. IMPRESSION: 1. New right internal jugular central venous port catheter with distal tip near the superior cavoatri al junction. 2. Chronic mild lingular atelectasis/scarring. No acute cardiopulmonary disease. Reviewed, dictated and finalized at location [facility]. IMPRESSION: 1. New right internal jugular central venous port catheter with distal tip near the superior cavoatrial junction. 2. Chronic mild lingular atelectasis/scarring. No acute cardiopulmonary disease .
[2024-03-05 13:23] VITALS: BP 145/78; PULSE 82; RESP 18; TEMP 36.6; O2SAT 99
[2024-03-05] MEDS: fentaNYL CITRATE INJ (*CRX) 100 MCG/2 ML VIAL 25 MCG IV PUSH ×4 (15:30→16:32)
--- NOTE | 2024-03-05 15:31 | SUR.PREOP ---
1515 PT UPDATED ON SURGERY TIME DELAY, WARM BLANKET GIVEN
[2024-03-05 15:57] VITALS: BMI 36.8
--- NOTE | 2024-03-05 17:02 | PM.SD2 ---
Same Day Admit/Disch: HPI History of Present Illness Chief complaint: Dysfunctional Port A Cath Narrative: Tracey Lambert is a 53 year old female whom I initially saw 1 year ago. At that time she had had a right subclavian Port-A-Cath placed and it had become infected. She had been admitted to the hospital and I removed her Port-A-Cath. Her wound healed with wound VAC therapy and chronic wound care. Last April, I placed a new left subclavian vortex Port-A-Cath. This was an uneventful placement and the port worked well. However, 3 months later, in July, the port had flipped such that the access side was facing the chest. She was taken back to surgery and the Port-A-Cath was revised. All the sutures had come loose from the pectoralis major muscle. I re-sutured the Port-A-Cath placing sutures in every access site available. Recently, it has become apparent that the Port-A-Cath is again turning over in the pocket and in fact has migrated down the chest wall, moving more caudal from its original position. Patient has common variable immune deficiency disorder and receives IV IG on a regular basis. She reports that she had good success with the Bard purple port which lasted 13 years. She does not want the current port revised again. She would like to try the purple port again and have it placed on her other (right) side. [facility] Past Medical History Medical History Anxiety Arthritis Arthropathy of right knee Asthma Colitis Dx 03 September 2019 Common variable immunodeficiency COPD (chronic obstructive pulmonary disease) Degenerative arthritis of knee, bilateral Depression DVT (deep venous thrombosis) Emphysema of lung Encounter for postoperative care Fibromyalgia Foot fracture, left GERD (gastroesophageal reflux disease) GI bleed HLD (hyperlipidemia) HTN (hypertension) IgM deficiency Irritable bowel PCOS (polycystic ovarian syndrome) Pulmonary embolism Raynauds syndrome Surgical History Surgical History H/O dilation and curettage H/O laminectomy H/O sinus surgery History of endometrial ablation History of hysteroscopy October of 2021 History of incision and drainage Removal of right subclavian port-a-cath and I&D of right chest abscess on 03/02/23. History of knee surgery x 2 right x 1 left History of ventral hernia repair (12/28/20) Hx of appendectomy Hx of tonsillectomy S/P laparoscopic-assisted sigmoidectomy (~03/2020) Performed due to: Stricture resulting in right ventral hernia Family History Family History Father Diabetes mellitus Hypertension Mother Rheumatoid arthritis Acute myocardial infarction Heart disease Hypertension Sibling Hypertension Diabetes mellitus Other Family history of gout Family history of obesity Family history unknown Social History Social History Social History: Surrogate medical decision maker: Hector Lambert, spouse. Code status: Full code. Smoking status: Never smoker Second hand tobacco smoke exposure: No Alcohol intake: current Drinks per week: 1 Alcohol use details: FEW A MONTH Substance use: never Substance use type: does not use Lack of Transportation: No Lack of Food: Never True Current Housing: I Have Housing Concerned About Future Housing: No Difficulty Paying Gas/Electric Bills: No Difficulty Paying for Meds: No Currently Unemployed: No Education: Associate Degree Difficulty w/ Childcare or Family Care: No Living arrangements: with family Spiritual care concerns: No Same Day Admit/Disch: Med Pre-admit Medications Home Medications Medication Instructions Recorded Confirmed Type albuterol sulfate 2.5 mg/3 mL 2.5 mg inhalation Q6H PRN Dyspnea 09/03/19 03/05/24 History (0.083 %) solution f
--- NOTE | 2024-03-05 17:15 | WPDHPUPDATE1 ---
History and Physical Update Update Date/Time: 03/05/24 17:15 History and Physical has been reviewed, including an updated exam of the patient. There are NO changes in the patient's condition. Risks, benefits, and alternatives have been discussed and questions answered. Patient agrees to proceed with procedure.
--- NOTE | 2024-03-05 18:26 | WPDANESEPPF ---
Anes - Initial Pre Proc Eval Procedure: Operation Date: 03/05/24 14:45 Proposed Procedures p Removal of Shanelle Cath, Replacement of Shanelle Cath - Kelechi Lazar MD Date/Time: 03/05/24 18:26 Surgeon: Kelechi Lazar MD Pre Op Diagnosis: Dysfunctional Port A Cath Patient Data Age: 53 Gender: F Height: 1.7 m Weight: 106.5 kg Last Vital Signs Temp 36.6 C 03/05/24 13:23 Pulse 82 03/05/24 13:23 Resp 18 03/05/24 13:23 BP 145/78 H 03/05/24 13:23 Pulse Ox 99 03/05/24 13:23 O2 Del Method Room Air 03/05/24 13:23 Allergies Allergy/AdvReac Type Severity Reaction Status Date / Time aspirin Allergy Severe anaphylaxis Verified 03/05/24 12:55 aztreonam Allergy Severe RASH Verified 03/05/24 12:55 ibuprofen Allergy Severe Anaphylaxis Verified 03/05/24 12:55 NSAIDS (Non-Steroidal Allergy Severe Anaphylactic Verified 03/05/24 12:55 Anti-Inflamma Shock shellfish derived Allergy Severe Swelling Verified 03/05/24 12:55 of Lip/Tongue/Throat adhesive Allergy Intermediate rash Verified 03/05/24 12:55 ciprofloxacin Allergy Intermediate Hives Verified 03/05/24 12:55 latex Allergy Intermediate Dyspnea Verified 03/05/24 12:55 nifedipine Allergy Intermediate Urticaria Verified 03/05/24 12:55 sulfamethizole Allergy Intermediate Urticaria Verified 03/05/24 12:55 terbinafine Allergy Intermediate Urticaria Verified 03/05/24 12:55 trimethoprim Allergy Intermediate Hives Verified 03/05/24 12:55 vancomycin Allergy Intermediate Rash Verified 03/05/24 12:55 Home Medications Medication Instructions Recorded Confirmed Type albuterol sulfate 2.5 mg/3 mL 2.5 mg inhalation Q6H PRN Dyspnea 09/03/19 03/05/24 History (0.083 %) solution for nebulization amlodipine 10 mg tablet 10 mg PO DAILY 09/03/19 03/05/24 History epinephrine 0.3 mg/0.3 mL 0.3 mg subcut DIRECTED PRN 09/03/19 03/05/24 History injection, auto-injector Anaphylaxis ergocalciferol (vitamin D2) 1,250 50,000 unit PO WEEKLY 09/03/19 03/05/24 History mcg (50,000 unit) capsule furosemide 40 mg tablet 40 mg PO DAILY 09/03/19 03/05/24 History guaifenesin 600 mg tablet, 600 mg PO BID PRN Cough 09/03/19 03/05/24 History extended release 12 hr (Mucinex) lamotrigine 200 mg tablet 200 mg PO BID 09/03/19 03/05/24 History omeprazole 20 mg capsule,delayed 60 mg PO BID 09/03/19 03/05/24 History release ondansetron HCl 4 mg tablet 4 mg PO Q8H PRN Nausea And Vomiting 09/03/19 03/05/24 History rivaroxaban 20 mg tablet (Xarelto) 20 mg PO DAILY 09/03/19 03/05/24 History theophylline 300 mg 300 mg PO BID 09/03/19 03/05/24 History tablet,extended release,12 hr tiotropium bromide 18 mcg capsule 18 mcg inhalation DAILY 09/03/19 03/05/24 History with inhalation device (Spiriva with HandiHaler) mometasone-formoterol HFA 200 2 puff inhalation BID 11/03/19 03/05/24 History mcg-5 mcg/actuation aerosol inhaler (Dulera) fexofenadine 180 mg tablet 180 mg PO DAILY 11/04/20 03/05/24 History (Nneka Allergy) ramipril 5 mg capsule (Altace) 5 mg PO BID 11/04/20 03/05/24 History diphenhydramine HCl 25 mg capsule 50 mg PO Q28D 01/25/21 03/05/24 History (Allergy (diphenhydramine)) fluticasone propionate 110 1 puff inhalation BID 01/25/21 03/05/24 History mcg/actuation HFA aerosol inhaler (Flovent HFA) folic acid 1 mg tablet 1 mg PO QAM 03/02/23 03/05/24 History levothyroxine 25 mcg tablet 50 mcg PO QMWF 03/02/23 03/05/24 History (Unithroid) Ivig See Rx Instructions .Route .COMPLEX 04/04/23 03/05/24 History liothyronine 5 mcg tablet 5 mcg PO BID 05/02/23 03/05/24 History acetaminophen 325 mg tablet 650 mg PO Q6H PRN pain or fever 08/24/23 03/05/24 History (Tylenol) lansoprazole 15 mg capsule,delayed 15 mg PO BID 08/24/23 03/05/24 History release (Prevacid 24Hr) levothyroxine 25 mcg tablet 25 mcg PO QTUTHSASU 08/24/23 03/05/24 History (Unithroid) hydrocodone 5 mg-acetaminophen 325 1 tablet PO Q6-8H PRN pain 03/04/24 03/05/24 His
[2024-03-05] MEDS: ceFAZolin 2 GM/D5W 50 ML 2 GM/50 ML BAG IVPB (19:42)
[2024-03-05] MEDS: HEPARIN SODIUM 1,000 UNITS/ML VIAL 1000 UNITS IV PUSH (20:09)
[2024-03-05] MEDS: BUPIVACAINE/EPINEPHRINE 0.5% 30 ML VIAL 20 ML INFILTRATE (20:09)
[2024-03-05 21:30] VITALS: BP 146/85; PULSE 93; RESP 16; O2SAT 94
[2024-03-05] MEDS: LACTATED RINGERS 1,000 ML 30 ML IV CONT (21:30)
--- NOTE | 2024-03-05 21:52 | W.PM.PROC2 ---
Procedure Note - Detailed Date of Procedure 03/05/24 Pre-op Diagnosis Dysfunctional Port A Cath Post-op Diagnosis Same Procedure Performed Placement new right internal jugular vein Bard purple port using ultrasound and under fluoroscopy, removal previous left subclavian Port-A-Cath. Surgeon Kelechi Lazar MD Change Management Director Marline MEJIA Anesthesia General (G IV S) and Local Indications Patient has had a right subclavian port infection 1 year ago and port removal. 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 After the infection resolved she had a left subclavian Port-A-Cath placed. This worked well but then the sutures came free from the surrounding tissues namely the pectoralis major muscle. The port flipped over so it was not accessible. This port was then revised but left in the left subclavian position. Despite suturing securely, this port has flipped and is also not accessible. She is taken to surgery now for placement of a new implantable venous access port on the right side. The left subclavian Port-A-Cath will also be removed. Findings I was not able to cannulate the right subclavian vein. The right internal jugular vein was easily cannulated. Port was placed in the right subclavian position with the catheter tunneled and entering the right internal jugular vein. The left subclavian Port-A-Cath was removed intact. The silk sutures holding the port in place were no longer attached to any surrounding tissue but were still attached to the openings on the Port-A-Cath made for securing the Port-A-Cath. Description of Procedure Patient was taken to surgery and anesthesia was introduced. Both the right upper chest and right neck as well as the left chest were prepped and draped. We started on patient's right side. Local was infiltrated into her old scar. The skin of this scar was excised. I then dissected down to the pectoralis fascia and the anterior edge of the clavicle. Cautery was used for hemostasis. A subcutaneous pocket was then created in this area. Additional local was placed under the right clavicle. I attempted 3 different times to cannulate the right subclavian vein what was unsuccessful. The ultrasound was then draped and brought into the field. It worked well and a single puncture was used to cannulate the right internal jugular vein. A guidewire passed readily. The guidewire was in good position in the distal SVC by fluoroscopy. I then marked a counter incision on the right neck and tunneled the tubing for the purple port from the pocket through the counter incision and then out the incision where the guidewire was located. I then used fluoroscopy and passed a dilator and sleeve over the guidewire and into the superior vena cava. The introducer and guidewire were removed. The Port-A-Cath tubing was passed down through the sleeve and into the distal SVC, right atrial junction. I then went to the other end of the tubing and cut the tubing at the appropriate length. It was attached to the purple port reservoir and secured with the overlying plastic sleeve. I then placed the Port-A-Cath so that the upper 2 sites that it can be secured were at the lower margin of the clavicle. I then sutured on the medial side of the port with 2-0 silk such that this suture included the paola clavicular fascia and also went through the port at the attachment site. I did the same procedure just lateral to the purple port and similarly brought that through the attachment site. Both of these 2-0 silk sutures were then tied down securing the port to paola clavicular fascia and possibly some periosteum to hopefully prevent it from migrating or turning over. The 2 other attachment sites were also sutured with 2 0 silk to the pectoralis major muscle. I checked the purple port several times and it aspirated blood and flushe
[2024-03-05 22:00] VITALS: BP 158/97; PULSE 83; RESP 14; O2SAT 94
[2024-03-05] MEDS: oxyCODONE HCL (*CRX) 5 MG TAB IR PO (22:15)
== END 2024-03-05 10:28 | disposition home or self-care (01) ==
PROVIDERS: PCP Student in an Organized Health Care Education/Training Program; Visit Provider Surgery
PROC: (CPT 36561; principal; 2024-03-05 14:45)
DX: T82.898A Other specified complication of vascular prosthetic devices, implants and grafts, initial encounter (principal); D83.9 Common variable immunodeficiency, unspecified; Y83.8 Other surgical procedures as the cause of abnormal reaction of the patient, or of later complication, without mention of misadventure at the time of the procedure; J44.9 Chronic obstructive pulmonary disease, unspecified; J43.9 Emphysema, unspecified; I10 Essential (primary) hypertension; E78.5 Hyperlipidemia, unspecified; K21.9 Gastro-esophageal reflux disease without esophagitis; M79.7 Fibromyalgia; F41.9 Anxiety disorder, unspecified; F32.A Depression, unspecified; Z86.718 Personal history of other venous thrombosis and embolism; Z86.711 Personal history of pulmonary embolism; Z90.49 Acquired absence of other specified parts of digestive tract; E66.9 Obesity, unspecified; Z68.36 Body mass index [BMI] 36.0-36.9, adult; Z79.51 Long term (current) use of inhaled steroids; Z79.01 Long term (current) use of anticoagulants; Z79.620 Long term (current) use of immunosuppressive biologic
CPT/HCPCS: 36561; 36590; 77001; A9270; C1788; J0690; J1200; J1644; J2250; J2405; J2704; J3010; J7030; J7120

== ENCOUNTER 2024-03-12 10:03 | Emergency (ER) | payer MEDICARE, OTHER, SELFPAY ==
--- NOTE | ~2024-03-12 | CT_ITS ---
Non-contrast CT scan of the Abdomen and Pelvis Clinical indication: Kidney stone Technique: 2.5 mm axial scans were obtained through the abdomen and pelvis without intravenous or or al contrast. Dose reduction technique was used on this scan by utilizing automated exposure control a nd iterative reconstruction technique. The dose-length product (DLP) was 726.07 mGy-cm. COMPARISON: 08/06/2023 Findings: Images through the lung bases reveal probable focal chronic area of rounded atelectasis in the right middle lobe adjacent to the fissure. There is mild lingular atelectatic change. Stable 11 mm left lower lobe pulmonary nodule (axial image 28). There is no evidence of renal or ureteral calculi. The kidneys and the ureters are nondilated. The liver, spleen, pancreas, and adrenals appear normal. Cholecystectomy clips are present. There is no aortic aneurysm. There is no evidence of bowel obstruction. There is evidence of prior anterior midline herniorrhaphy. There is a large right-sided spigelian hernia, containing the cecum/proximal ascending colon as well as loops of distal ileum. Images through the pelvis were performed. There is no evidence of ascites or lymphadenopathy. Urinary bladder unremarkable. No pelvic mass seen. No ascites. Impression: Large right-sided spigelian hernia containing cecum, proximal ascending colon, and multiple distal il eal loops. No bowel obstruction or bowel wall thickening seen. This is similar in appearance to prior exam. No renal stone identified. Stable 11 mm left lower lobe pulmonary nodule. Reviewed, dictated and finalized at [facility]. Impression: Large right-sided spigelian hernia containing cecum, proximal ascending colon, and multiple distal ileal loops. No bowel obstruction or bowel wall thickening seen. This is similar in appearance to prior exam. No renal stone identified. Stable 11 mm left lower lobe pulmonary nodule.
[2024-03-12 10:32] VITALS: BP 140/77; PULSE 94; RESP 18; TEMP 36.3; O2SAT 95
[2024-03-12 12:01] LABS: Basophils Absolute Auto 0.1 K/mm3 (0.0-0.1); Basophils Percent Auto 0.9 % (0.2-1.2); Eosinophils Absolute Auto 1.1 K/mm3 (0-0.3); Eosinophils Percent Auto 14.6 % (0-4.4); Hemoglobin 12.1 g/dL (12.0-15.0); Immature Granulocyte Absolute 0.02 K/mm3 (0.00-0.031); Immature Granulocyte Percent A 0.3 % (0-0.5); Lymphocytes Absolute Auto 2.42 K/mm3 (0.9-3.2); Lymphocytes Percent Auto 31.5 % (18.3-44.2); Mean Corpuscular HGB Conc 31.8 g/dl (32-36); Mean Corpuscular Hemoglobin 29.7 pg (26-34); Mean Corpuscular Volume 93.1 fl (80-100); Mean Platelet Volume 9.6 fl (7.4-10.4); Monocytes Absolute Auto 0.7 K/mm3 (0.1-0.6); Monocytes Percent Auto 9.4 % (2.6-8.5); Neutrophils Absolute Auto 3.3 K/mm3 (1.3-6.7); Neutrophils Percent Auto 43.3 % (45.5-73.1); Platelet Count Result 365 k/mm3 (150-375); Red Blood Count 4.08 M/mm3 (4.2-5.4); White Blood Count 7.7 K/mm3 (4.5-10.0)
[2024-03-12 12:03] LABS: Appearance Urine Cloudy (Clear); Bacteria Urine 4+ /hpf; Bilirubin Urine Negative (Negative); Blood Urine Trace (Negative); Color Urine Yellow (Yellow); Glucose Urine UA Negative (Negative); Ketones Urine Negative (Negative); Leukocyte Esterase Ur 3+ LEU/UL (Negative); Nitrate Urine Positive (Negative); Protein Urine Negative (Negative); RBC Urine 0-2 /hpf (0-2); Squamous Epithelial Cell Urine None Seen /hpf (Few); Urobilinogen Urine 0.2 mg/dL (<2.0); WBC Urine >100 /hpf (0-3)
[2024-03-12 12:05] LABS: Add Urine Microscopic? YES
[2024-03-12 12:13] LABS: Alanine Aminotransferase 14 U/L (6-35); Albumin Level 4.5 g/dL (3.5-5.1); Alkaline Phosphatase 72 U/L (38-126); Anion Gap 10 mmol/L (4-12); Aspartate Amino Transferase 24 U/L (14-36); Bilirubin,Total 0.4 mg/dL (0.2-1.3); Blood Urea Nitrogen 15 mg/dL (7-17); Carbon Dioxide 24 mmol/L (22-30); Chloride 105 mmol/L (98-107); Estimated CRCL calculation 87 ml/min; Estimated Glomerular Filt Rate > 60; Glucose 93 mg/dL (65-110); Potassium 3.8 mmol/L (3.4-5.0); Sodium 139 mmol/L (137-145)
--- NOTE | 2024-03-12 12:22 | ED.GENADULT ---
HPI - General Adult General Chief complaint: Urogenital-Female Stated complaint: frequent urination Time Seen by Provider: 03/12/24 11:23 History of Present Illness HPI narrative: Tracey Lambert is a 53 y/o female who presents today with complaints of having cloudy urine that started about 2 days ago, and she states she had a fever of 100 today. SHe took Acetaminophen at around 0900 today. reports mild suprapubic pain and pain to the right flank Denies any nausea/vomiting. Related Data Home Medications Medication Instructions Recorded Confirmed albuterol sulfate 2.5 mg/3 mL 2.5 mg inhalation Q6H PRN Dyspnea 09/03/19 03/05/24 (0.083 %) solution for nebulization amlodipine 10 mg tablet 10 mg PO DAILY 09/03/19 03/05/24 epinephrine 0.3 mg/0.3 mL 0.3 mg subcut DIRECTED PRN 09/03/19 03/05/24 injection, auto-injector Anaphylaxis ergocalciferol (vitamin D2) 1,250 50,000 unit PO WEEKLY 09/03/19 03/05/24 mcg (50,000 unit) capsule furosemide 40 mg tablet 40 mg PO DAILY 09/03/19 03/05/24 guaifenesin 600 mg tablet, 600 mg PO BID PRN Cough 09/03/19 03/05/24 extended release 12 hr (Mucinex) lamotrigine 200 mg tablet 200 mg PO BID 09/03/19 03/05/24 omeprazole 20 mg capsule,delayed 60 mg PO BID 09/03/19 03/05/24 release ondansetron HCl 4 mg tablet 4 mg PO Q8H PRN Nausea And Vomiting 09/03/19 03/05/24 rivaroxaban 20 mg tablet (Xarelto) 20 mg PO DAILY 09/03/19 03/05/24 theophylline 300 mg 300 mg PO BID 09/03/19 03/05/24 tablet,extended release,12 hr tiotropium bromide 18 mcg capsule 18 mcg inhalation DAILY 09/03/19 03/05/24 with inhalation device (Spiriva with HandiHaler) mometasone-formoterol HFA 200 2 puff inhalation BID 11/03/19 03/05/24 mcg-5 mcg/actuation aerosol inhaler (Dulera) fexofenadine 180 mg tablet 180 mg PO DAILY 11/04/20 03/05/24 (Nneka Allergy) ramipril 5 mg capsule (Altace) 5 mg PO BID 11/04/20 03/05/24 diphenhydramine HCl 25 mg capsule 50 mg PO Q28D 01/25/21 03/05/24 (Allergy (diphenhydramine)) fluticasone propionate 110 1 puff inhalation BID 01/25/21 03/05/24 mcg/actuation HFA aerosol inhaler (Flovent HFA) folic acid 1 mg tablet 1 mg PO QAM 03/02/23 03/05/24 levothyroxine 25 mcg tablet 50 mcg PO QMWF 03/02/23 03/05/24 (Unithroid) Ivig See Rx Instructions .Route .COMPLEX 04/04/23 03/05/24 liothyronine 5 mcg tablet 5 mcg PO BID 05/02/23 03/05/24 acetaminophen 325 mg tablet 650 mg PO Q6H PRN pain or fever 08/24/23 03/05/24 (Tylenol) lansoprazole 15 mg capsule,delayed 15 mg PO BID 08/24/23 03/05/24 release (Prevacid 24Hr) levothyroxine 25 mcg tablet 25 mcg PO QTUTHSASU 08/24/23 03/05/24 (Unithroid) hydrocodone 5 mg-acetaminophen 325 1 tablet PO Q6-8H PRN pain 03/04/24 03/05/24 mg tablet Allergies Allergy/AdvReac Type Severity Reaction Status Date / Time aspirin Allergy Severe anaphylaxis Verified 03/12/24 11:13 aztreonam Allergy Severe RASH Verified 03/12/24 11:13 ibuprofen Allergy Severe Anaphylaxis Verified 03/12/24 11:13 NSAIDS (Non-Steroidal Allergy Severe Anaphylactic Verified 03/12/24 11:13 Anti-Inflamma Shock shellfish derived Allergy Severe Swelling Verified 03/12/24 11:13 of Lip/Tongue/Throat adhesive Allergy Intermediate rash Verified 03/12/24 11:13 ciprofloxacin Allergy Intermediate Hives Verified 03/12/24 11:13 latex Allergy Intermediate Dyspnea Verified 03/12/24 11:13 nifedipine Allergy Intermediate Urticaria Verified 03/12/24 11:13 sulfamethizole Allergy Intermediate Urticaria Verified 03/12/24 11:13 terbinafine Allergy Intermediate Urticaria Verified 03/12/24 11:13 trimethoprim Allergy Intermediate Hives Verified 03/12/24 11:13 vancomycin Allergy Intermediate Rash Verified 03/12/24 11:13 Review of Systems Review of Systems: All systems reviewed & are unremarkable except as noted in HPI and below PMFSH Past Medical History Medical History Anxiety Arthritis Arthropathy of right knee A
[2024-03-12] MEDS: cefTRIAXone 2 GM/NS 100 ML 2 GM/100 ML BAG IVPB (13:17)
[2024-03-12 13:58] VITALS: BP 130/78; PULSE 84; RESP 16; TEMP 36.6; O2SAT 98
== END 2024-03-12 14:01 | disposition home or self-care (01) ==
PROVIDERS: Emergency Medicine; Emergency Provider Nurse Practitioner Family; PCP Student in an Organized Health Care Education/Training Program
DX: N30.00 Acute cystitis without hematuria (principal); R10.9 Unspecified abdominal pain; Z79.01 Long term (current) use of anticoagulants; J45.909 Unspecified asthma, uncomplicated; Z86.718 Personal history of other venous thrombosis and embolism; K21.9 Gastro-esophageal reflux disease without esophagitis; E78.5 Hyperlipidemia, unspecified; I10 Essential (primary) hypertension; F41.8 Other specified anxiety disorders; D83.9 Common variable immunodeficiency, unspecified; Z86.711 Personal history of pulmonary embolism
CPT/HCPCS: 36415; 74176; 80053; 81001; 85025; 87077; 87086; 87088; 87186; 96365; 99284; J0696

== ENCOUNTER 2024-11-10 12:25 | Outpatient (CLI) | payer MEDICARE, OTHER, SELFPAY ==
--- NOTE | ~2024-11-10 | MM_ITS ---
EXAMINATION: MM screening luis BI w wilian HISTORY: Screening mammogram TECHNIQUE: Craniocaudal and mediolateral oblique 3-D tomosynthesis images were obtained and synthetic 2-D images were generated. CAD analysis was submitted and interpreted. COMPARISON: 07/27/2023, 11/04/2021 BREAST PARENCHYMAL COMPOSITION:Not Dense. The breasts are almost entirely fatty FINDINGS: No suspicious mass, calcification, or architectural distortion are identified in either merrick ast to suggest malignancy. There has been no suspicious interval change. IMPRESSION: No mammographic evidence of malignancy. Recommend routine screening mammography in one year. BI-RADS Category 1: Negative Reviewed, dictated and finalized at location . NING SERVICES COORDINATOR
== END 2024-11-10 12:26 | disposition home or self-care (01) ==
PROVIDERS: PCP Student in an Organized Health Care Education/Training Program; Visit Provider Nurse Practitioner
DX: Z12.31 Encounter for screening mammogram for malignant neoplasm of breast (principal)
CPT/HCPCS: 77063; 77067

== ENCOUNTER 2024-12-14 13:15 | Emergency (ER) | payer MEDICARE, OTHER, SELFPAY ==
--- OUTSIDE RECORDS SUMMARY | 2024-12-14 13:18 | XMS_ITS | Encounter Summary ---
Author Organization [facility] Address [address] [place] [id number] Care Team Providers Care Drop Man Name Role Phone Sera Theodore Jesus DO Primary Care Provider + Nena Holland RN Unavailable [phone] Bonifacio Easton MD Unavailable Encounter Details Date Type Department Care Team (Late st Contact Info) Description 03/23/2022 Mundi Message Enc [facility] Family & Internal Medicine [address] [phone] M[facility] Provider Previous PCP Social History Tobacco Use Types Packs/Day Years Used Date Smoking Tobacco: Never Smokeless Tobacco: Never Alcohol Use Standard Drinks/Week Comments Yes 0 (1 standard drink = 0.6 oz pur e alcohol) occ PHQ-2 Answer Date Recorded PHQ-2 Score - If the patient scores above 3, please move on to questions 3-9 0 03/16/2022 Comments No Sex and Gender Information Value Date Recorded Sex Assigned at Female 11/26/2024 1:20 PM JAZZ SINGER Legal Sex Female 5:37 PM CDT Gender Identity Female 11/26/2024 1:20 PM JAZZ SINGER Sexual Orientation Not on file Occupation Industry Job Start Date Job End Date unemployed Not on file Not on file Not on file COVID-19 Exposure Response Date Recorded In the last 10 days, have yo u been in contact with someone who was confirmed or suspected to have Coronavirus/COVID-19? No / Unsure 03/16/2022 8:47 AM CDT documented as of this encounter Plan of Treatment Upcoming Encounters Date Type Department Care Team (Late st Contact Info) Description 12/16/2024 11:[address] [facility] [address] [place] [address] Marcus, MD Joycelyn 12/16/2024 1:00 [address] [facility] [address] [place] [address] Patel Garay MD [address] [facility] [address] [place] [address] 02/24/2025 1:00 PM CDT Office Visit [facility] Family & Internal Medicine [facility] [address] [place] [phone] Theodore Zamora DO [address] [place] [id number] documented as of this encounter Goals Goal Patient Goal Type Associated Problems Recent Progress Patient-Stated? Author Consistently take medications as Prescribed General On track(2024 3:27 PM JAZZ SINGER) Nena Mohan RN Establish Plan for Symptom Monitoring- COPD/Asthma General On track(2024 3:27 PM JAZZ SINGER) Nena Mohan RN Note: COPD/Asthma: Patient will recognize symptoms of COPD/Asthma exacerbation and report to the physician. If severe, patient will seek emergent treatment at [facility] or [facility]. 01/24/23: Patient seen by ([employer]) on 01/10/23 and will f/u on 03/28/23. Reduce Blood Pressure Lifestyle On track(2024 3:27 PM JAZZ SINGER) Nena Mohan RN Note: Patient to monitor blood pressure weekly and report the onset of any changes. Patient will take medications as directed. documented as of this encounter Visit Diagnoses Not on filedocumented in this encounter Care Teams Drop Man Relationship Specialty Start Date End Date Theodore Zamora DO [address] [place] [address] [phone] PCP - General FAMILY PRACTICE 03/15/22 Nena Holland RN [address] [place] [address] Seed Specialist (Ambulatory) REGISTERED NURSE 03/17/22 Bonifacio Easton MD [address] [place] [address] PULMONARY DISEASE 08/29/22 documented as of this encounter
--- OUTSIDE RECORDS SUMMARY | 2024-12-14 13:18 | XMS_ITS | Encounter Summary ---
Author Organization [facility] Address [address] [place] [address] Care Team Providers Care Laboratory Chief Name Role Phone Theodore Zamora DO Primary Care Provider + Nena Holland RN Unavailable [phone] Bonifacio Easton MD Unavailable Encounter Details Date Type Department Care Team (Late st Contact Info) Description 06/21/2022 MyChart Message Enc [facility] Family & Internal Medicine [facility] [address] [place] [address] Theodore Zamora DO [facility] [place] [address] Medication. Social History Tobacco Use Types Packs/Day Years Used Date Smoking Tobacco: Never Smokeless Tobacco: Never Alcohol Use Standard Drinks/Week Comments Yes 0 (1 standard drink = 0.6 oz pur e alcohol) occ PHQ-2 Answer Date Recorded PHQ-2 Score - If the patient scores above 3, please move on to questions 3-9 0 04/21/2022 Comments No Sex and Gender Information Value Date Recorded Sex Assigned at Female 11/26/2024 1:20 PM DRYING OVEN ATTENDANT Legal Sex Female 5:37 PM CDT Gender Identity Female 11/26/2024 1:20 PM DRYING OVEN ATTENDANT Sexual Orientation Not on file Occupation Industry Job Start Date Job End Date unemployed Not on file Not on file Not on file COVID-19 Exposure Response Date Recorded In the last 10 days, have yo u been in contact with someone who was confirmed or suspected to have Coronavirus/COVID-19? No / Unsure 06/02/2022 7:38 AM CDT documented as of this encounter Progress Notes * Theodore Zamora DO - 06/21/2022 3:42 PM CDT We do not have [facility] ID. ENT will order ID if it is needed. * Fariba Mari MA - 06/21/2022 1:57 PM CDTFrom: Tracey Lambert To: Dr. Theodore Zamora Sent: 06/21/2022 11:04 AM CDT Subject: Medication. Good morning Dr. Zamora, My ear and sinus surgery went well. Although, I didn't regain much hearing in my ears. Which is very disappointing. It???s been two weeks. My cultures for ear and sinuses grew some very odd and aggressive bacteria. Do you think I need a Infectious disease doctor? And if so is there on at [facility]. I need 2 refills on medications. My Hydrocodone. And my Amlodipine. To Man in [place]. Thank you. Tracey Lambert. [phone] documented in this encounter Plan of Treatment Upcoming Encounters Date Type Department Care Team (Late st Contact Info) Description 12/16/2024 11:30 AM DRYING OVEN ATTENDANT Appointment [facility] [address] [place] [address] Joycelyn Velazquez MD 12/16/2024 1:00 PM DRYING OVEN ATTENDANT Appointment [facility] [address] [place] [address] Patel Garay MD [address] [address] 02/24/2025 1:00 PM CDT Office Visit [facility] Family & Internal Medicine - [place] [address] [place] [address] Theodore Zamora DO [address] [place] [address] documented as of this encounter Goals Goal Patient Goal Type Associated Problems Recent Progress Patient-Stated? Author Consistently take medications as Prescribed General On track(2024 3:27 PM DRYING OVEN ATTENDANT) No Nena Holland RN Establish Plan for Symptom Monitoring- COPD/Asthma General On track(2024 3:27 PM DRYING OVEN ATTENDANT) Nena Mohan, RN Note: COPD/Asthma: Patient will recognize symptoms of COPD/Asthma exacerbation and report to the physician. If severe, patient will seek emergent treatment at [facility] or [facility]. 01/24/23: Patient seen by (Production Supervisor Trainee) on 01/10/23 and will f/u on 03/28/23. Reduce Blood Pressure Lifestyle On track(2024 3:27 PM DRYING OVEN ATTENDANT) Nena Mohan, RN Note: Patient to monitor blood pressure weekly and report the onset of any changes. Patient will take medications as directed. documented as of this encounter Visit Diagnoses Diagnosis Essential hypertension Unspecified essential hypertension Chronic pain syndrome documented in this encounter Additional Health Concerns Assessment Noted Time PHQ-9 Depression Total Score: 0 04/21/20 22 8:42 AM CDT documented as of this encounter Care Teams Laboratory Chief Relationship Specialty Start Date End Date Theodore Zamora DO [address] [place] [address] PCP - General FAMILY PRACTICE 03/15/22 Nena Holland, RN [address] [place] [address] Java Lead (Ambulatory) REGISTERED NURSE 03/17/22 Bonifacio Easton MD [address] [place] [id number] PULMONARY DISEASE 08/29/22 documented as of this encounter
--- OUTSIDE RECORDS SUMMARY | 2024-12-14 13:18 | XMS_ITS | Encounter Summary ---
Author Organization [facility] Address [address] [place] [address] Care Team Providers Care Customer Business Manager Name Role Phone Theodore Zamora DO Primary Care Provider + Nena Holland RN Unavailable [phone] Bonifacio Easton MD Unavailable Encounter Details Date Type Department Care Team (Late Contact Info) Description 07/25/2022 MyCOpGent Message Enc [facility] Family & Internal Medicine [facility] [address] [place] [address] Theodore Zamora DO [facility] [place] [address] Medication sent to [employer]. Social History Tobacco Use Types Packs/Day Years [...] Sex Assigned at Female 11/26/2024 1:20 PM WELDER PRODUCTION LINE COMBINATION Legal Sex Female 5:37 PM CDT Gender Identity Female 11/26/2024 1:20 PM WELDER PRODUCTION LINE COMBINATION Sexual Orientation Not on file Occupation Industry Job Start Date Job End Date unemployed Not on file Not on file Not on file documented as of this encounter Plan of Treatment Upcoming Encounters Date Type Department Care Team (Late st Contact Info) Description 12/16/2024 11:30 AM WELDER PRODUCTION LINE COMBINATION Appointment [facility] [address] [place] [address] None, MD Joycelyn 12/16/2024 1:00 PM WELDER PRODUCTION LINE COMBINATION Appointment [facility] [address] [place] [address] Patel Garay MD [address] [facility] [address] [place] [address] 02/24/2025 1:00 PM CDT Office Visit [facility] Family & Internal Medicine [place] [address] [place] [address] [place] [address] [place] [address] documented as of this encounter Goals Goal Patient Goal Type Associated Problems Recent Progress Patient-Stated? Author Consistently take medications as Prescribed General On track(2024 3:27 PM WELDER PRODUCTION LINE COMBINATION) Nena Mohan RN Establish Plan for Symptom Monitoring- COPD/Asthma General On track(2024 3:27 PM WELDER PRODUCTION LINE COMBINATION) Nena Mohan RN Note: COPD/Asthma: Patient will recognize symptoms of COPD/Asthma exacerbation and report to the physician. If severe, patient will seek emergent treatment at [facility]. 01/24/23: Patient seen by (Lpn Medical Assistant) on 01/10/23 and will f/u on 03/28/23. Reduce Blood Pressure Lifestyle On track(2024 3:27 PM WELDER PRODUCTION LINE COMBINATION) No Nena Holland RN Note: Patient to monitor blood pressure weekly and report the onset of any changes. Patient will take medications as directed. documented as of this encounter Visit Diagnoses Not on filedocumented in this encounter Additional Health Concerns Assessment Noted Time PHQ-9 Depression Total Score: 0 04/21/20 8:42 AM CDT documented as of this encounter Care Teams Customer Business Manager Relationship Specialty Start Date End Date Theodore Zamora DO [address] [place] [address] PCP - General FAMILY PRACTICE 03/15/22 Nena Holland RN [address] [place] [address] Band Director (Ambulatory) REGISTERED NURSE 03/17/22 Bonifacio Easton MD [address] [place] [id number] PULMONARY DISEASE 08/29/22 documented as of this encounter
--- OUTSIDE RECORDS SUMMARY | 2024-12-14 13:19 | XMS_ITS | Data Portability ---
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 Increasing areas of pain, dysuria/urgen cy/frequency. Waiting for surgery for removal of mesh which became infected after herniorrhaphy . surgery postponed due to high demand for previously postponed procedures. [email or web address] Not available 05/01/2021 17:01:22 Plan of Treatment Reminders Order Date Submit Date Provider Last Modified By Organization Details Last Modified Time Details Appointments None recorded. Lab culture, aerobic + anaerobic 2021 022 MABELVALE [facility], 2022 Sydni Crow, [address], [address], 15:09:15 urinalysis, dipstick 2020 021 BILL In-Office Order, Internal Use Only DO Not Attach Compendium DO Not Attach Compendium, Do Not Delete/merge, [id number] 14:42:27 Referral None recorded. Procedures None recorded. Surgeries None recorded. Imaging electrocard iogram 2021 022 In-Office Order, Internal Use Only DO Not Attach Compendium DO Not Attach Compendium, Do Not Delete/merge, [id number] 13:52:33 US, abdomen + pelvis 2020 021 [facility], [facility] [address], [place], [address], 15:46:27 Medication Orders omeprazole 40 mg capsule,del ayed release 2021 [facility] #[id number], [address] [facility], [place], [place], [id number], 15:55:14 amoxicillin 875 mg-potassiu m clavulanate 125 mg tablet 2021 [facility] #68941, [address] [facility], [place], [place], [id number], 15:55:16 hydrocodone 5 mg-acetamin ophen 325 mg tablet 2021 [facility] #38843, [address] [facility], [place], [place], [id number], 12:00:56 fluticasone propionate 50 mcg/actuati on nasal spray,suspe nsion 2021 [facility] #93785, [address] [facility], [place], [place], [id number], 12:00:23 theophyllin e ER 300 mg tablet,exte nded release,12 hr 2021 [facility] #85709, [address] [facility], [place], [place], [id number], 12:01:24 hydrocodone 5 mg-acetamin ophen 325 mg tablet [facility] [address] [facility], [place], [place], [id number], 14:49:59 fluticasone propionate 50 mcg/actuati on nasal spray,suspe nsion 2020 [facility] #24728, [address] [facility], [place], [place], [id number], 12:57:17 hydrocodone 5 mg-acetamin ophen 325 mg tablet 2020 [facility] #42060, [address] [facility], [place], [place], [id number], 10:29:16 fluticasone propionate 50 mcg/actuati on nasal spray,suspe nsion 2020 [facility] #79384, [address] [facility], [place], [place], [id number], 11:23:45 Patient TargetsNo targets recorded. Patient Instructions Encounter Date Encounter Id Patient Instructions Last Modified By Organization Details Last Modified Time 04/21/2021 [id number] acute pain after surgery: care instructions [email or web address] Not available 05/01/2021 17:06:05 06/06/2021 [id number] knee arthritis: care instructions Not available 06/06/2021 11:13:15 allergies: care instructions Not available 06/06/2021 11:23:25 managing your allergies: care instructions Not available 06/06/2021 11:23:25 gastroesophageal reflux disease (GERD): care instructions Not available 06/06/2021 11:23:25 chronic obstruct mario pulmonary disease (COPD): care instructions Not available 06/06/2021 11:13:14 learning about c opd and how to prevent lung infections Not available 06/06/2021 11:13:14 When You Want to Lose Weight: Care Instructions Not available 06/06/2021 11:23:25 learning about h igh blood pressure Not available 06/06/2021 11:23:25 deep vein thrombosis: care instructions Not available 06/06/2021 11:23:25 learning about d eep vein thrombosis Not available 06/06/2021 11:23:25 09/12/2021 [id number] painful urinatio n (dysuria): care instructions Not available 09/12/2021 13:04:38 knee arthritis: care instructions Not available 09/12/2021 12:56:49 allergies: care instructions Not available 09/12/2021 12:56:50 managing your allergies: care instructions Not available 09/12/2021 12:56:50 gastroesophageal reflux disease (GERD): care instructions Not available 09/12/2021 12:56:49 chronic obstruct mario pulmonary disease (COPD): care instructions Not available 09/12/2021 12:56:49 learning about c opd and how to prevent lung infections Not available 09/12/2021 12:56:50 When You Want to Lose Weight: Care Instructions Not available 09/12/2021 12:56:49 learning about h igh blood pressure Not available 09/12/2021 12:56:49 deep vein thrombosis: care instructions Not available 09/12/2021 12:56:49 learning about d eep vein thrombosis Not available 09/12/2021 12:56:50 10/31/2021 [id number] knee arthritis: care instructions Not available 10/31/2021 12:00:16 allergies: care instructions Not available 10/31/2021 12:00:17 managing your allergies: care instructions Not available 10/31/2021 12:00:16 gastroesophageal reflux disease (GERD): care instructions Not available 10/31/2021 12:00:16 chronic obstruct mario pulmonary disease (COPD): care instructions Not available 10/31/2021 12:00:17 learning about c opd and how to prevent lung infections Not available 10/31/2021 12:00:17 When You Want to Lose Weight: Care Instructions Not available 10/31/2021 12:00:16 learning about h igh blood pressure Not available 10/31/2021 12:00:17 deep vein thrombosis: care instructions Not available 10/31/2021 12:00:17 learning about d eep vein thrombosis Not available 10/31/2021 12:00:17 01/03/2022 [id number] osteoarthritis: care instructions jhsieh Not available 01/03/2022 15:55:10 Reason for Referral None Reported. Results Created Date Observation Date Name Description Value Unit Range Abnormal Flag Note LastModifiedBy Organization Detail LastModifiedTime 08/03/20 21 08/09/2021 TOXAS SURE SELEC T 13 (MW) summary report (summary) FINAL ===== ===== ===== ===== ===== ===== ===== ===== ===== ===== ===== ===== ===== === TOXAS SURE SELEC T 13 (MW) ===== ===== ===== ===== ===== ===== ===== ===== ===== ===== ===== ===== ===== === Test Resul t Flag Units NO DRUGS DETEC VENKAT. ===== ===== ===== ===== ===== ===== ===== ===== ===== ===== ===== ===== ===== === Test Resul t Flag Units Ref Range Creat inine 61 mg/dL >=20 ===== ===== ===== ===== ===== ===== ===== ===== ===== ===== ===== ===== ===== === Decla red Medic ation s: Medic ation list was not provi ded. ===== ===== ===== ===== ===== ===== ===== ===== ===== ===== ===== ===== ===== === For clini gricelda consu ltati on, pleas e call [phone]. ===== ===== ===== ===== ===== ===== ===== ===== ===== ===== ===== ===== ===== === Not Available [employer] [address] [facility], [place], [address], 08/10/2021 03:07:31 08/03/20 21 08/09/2021 TOXAS SURE SELEC T 13 (MW) pdf . Not Available [employer] [address] [facility], [place], [address], 08/10/2021 03:07:31 09/12/20 21 09/12/2021 urina lysis , dipst ick Leukocytes Negati ve Not Available In-Office Order Internal Use Only DO Not Attach Compendium DO Not Attach Compendium, Do Not Delete/merge, [id number] 09/12/2021 12:47:12 09/12/20 21 09/12/2021 urina lysis , dipst ick Nitrite negati ve Not Available In-Office Order Internal Use Only DO Not Attach Compendium DO Not Attach Compendium, Do Not Delete/merge, [id number] 09/12/2021 12:47:12 09/12/20 21 09/12/2021 urina lysis , dipst ick Urobilinogen .2 Not Available In-Of fice Order Internal Use Only DO Not Attach Compendium DO Not Attach Compendium, Do Not Delete/merge, [id number] 09/12/2021 12:47:12 09/12/20 21 09/12/2021 urina lysis , dipst ick Protein Negati ve Not Available In-Office Order Internal Use Only DO Not Attach Compendium DO Not Attach Compendium, Do Not Delete/merge, [id number] 09/12/2021 12:47:12 09/12/2009/12/2021 urina lysis , dipst ick pH 6.0 Not Available In-Office Order Internal Use Only DO Not Attach Compendium DO Not Attach Compendium, Do Not Delete/merge, [id number] 09/12/2021 12:47:12 09/12/20 21 09/12/2021 urina lysis , dipst ick Blood Negati ve Not Available In-Office Order Internal Use Only DO Not Attach Compendium DO Not Attach Compendium, Do Not Delete/merge, [id number] 09/12/2021 12:47:12 09/12/2009/12/2021 urina lysis , dipst ick Specific [place] 1.020 Not Available In-Off ice Order Internal Use Only DO Not Attach Compendium DO Not Attach Compendium, Do Not Delete/merge, 09/12/2021 12:47:12 09/12/20 21 09/12/2021 urina lysis , dipst ick Ketone Negati ve Not Available In-Office Order Internal Use Only DO Not Attach Compendium DO Not Attach Compendium, Do Not Delete/merge, 09/12/2021 12:47:12 09/12/2009/12/2021 urina lysis , dipst ick Bilirubin Negati ve Not Available In-Office Order Internal Use Only DO Not Attach Compendium DO Not Attach Compendium, Do Not Delete/merge, [id number] 09/12/2021 12:47:12 09/12/2009/12/2021 urina lysis , dipst ick Glucose Negati ve Not Available In-Office Order Internal Use Only DO Not Attach Compendium DO Not Attach Compendium, Do Not Delete/merge, 09/12/2021 12:47:12 09/12/2009/12/2021 urina lysis , dipst ick Appearance Clear Not Available In-Offi ce Order Internal Use Only DO Not Attach Compendium DO Not Attach Compendium, Do Not Delete/merge, [id number] 09/12/2021 12:47:12 09/12/20 09/12/2021 urina lysis , dipst ick Color Yellow Not Available In-Office Order Internal Use Only DO Not Attach Compendium DO Not Attach Compendium, Do Not Delete/merge, [id number] 09/12/2021 12:47:12 01/05/20 22 01/08/2022 ANAER OBIC AND AEROB IC CULTU RE aerobic culture Final report abnormal Not Available [facility] ([facility]) [address] [facility], [place], [address], 01/09/2022 15:09:15 01/05/20 22 01/08/2022 ANAER OBIC AND AEROB IC CULTU RE result 1 Staphy lococc us aureus abnormal Based on susce ptibi lity to oxaci llin this isola te would be susce ptibl e to: *Peni cilli nase- stabl e penic illin s, such as: Cloxa cilli n, Diclo xacil margi, Nafci llin *Beta -lact am combi natio n agent s, such as: Amoxi cilli n-cla vulan ic acid, Ampic illin -sulb actam , Piper acill in-ta zobac avitia *Oral cephe ms, such as: Cefac estephania, Cefdi arielle, Cefpo doxim e, Cefpr ozil, Cefur oxime , Cepha lexin , Lorac arbef *Pare ntera l cephe ms, such as: Cefaz lemuel, Cefep jay, Cefot axime , Cefot alina, Cefta rolin e, Cefti zoxim e, Ceftr iaxon e, Cefur oxime *Carb apene ms, such as: Dorip enem, Ertap enem, Imipe nem, Merop enem Scant growt h Not Available [facility] ([facility]) [address] [facility], [place], [address], 01/09/2022 15:09:15 01/05/20 22 01/08/2022 ANAER OBIC AND AEROB IC CULTU RE antimicrobia l susceptibili ty Commen t S = Susce ptibl e; I = Inter media te; R = Resis tant P = Posit mario; N = Negat mario MICS are expre ssed in micro grams per mL Antib iotic RSLT# 1 RSLT# 2 RSLT# 3 RSLT# 4 Cipro floxa jose c R Clind amyci n R Eryth romyc in R Genta micin S Levof loxac in R Linez olid S Moxif loxac in R Oxaci llin S Penic illin R Quinu prist in/Da lfopr istin S Rifam pin S Tetra cycli ne S Trime thopr im/ lfa S Vanco mycin S Not Available [facility] ([facility]) [address] [facility], [place], [address], 01/09/2022 15:09:15 01/05/20 22 01/09/2022 ANAER OBIC AND AEROB IC CULTU RE anaerobic culture Final report Not Available [facility] ([facility]) [address] [facility], [place], [address], 01/09/2022 15:09:15 01/05/20 22 01/09/2022 ANAER OBIC AND AEROB IC CULTU RE result 1 Commen t No anaer obic growt h in 72 hours . Not Available [facility] ([facility]) [address] [facility], [place], [address], 01/09/2022 15:09:15 09/24/20 21 09/24/2021 US, abdom en + pelvi s No observ ation record ed. [facility] [address], [place], [address], 09/25/2021 08:44:45 09/26/20 21 09/24/2021 US, abdom en + pelvi s No observ ation record ed. [facility] [address], [place], [address], 09/26/2021 13:29:34 09/26/20 21 09/26/2021 US, abdom en + pelvi s No observ ation record ed. [facility] [address], [place], [address], 09/26/2021 13:29:35 09/26/20 21 09/26/2021 US, abdom en + pelvi s No observ ation record ed. [facility] [address], [place], [address], 09/26/2021 13:29:35 09/26/20 21 09/24/2021 US, abdom en + pelvi s No observ ation record ed. [facility] [address], [place], [address], 09/26/2021 13:29:36 10/03/20 21 10/03/2021 CT, abdom en + pelvi s, w/ contr ast No observ ation record ed. [address], [address], 10/10/2021 09:44:10 10/31/19 22 10/31/2021 elect judah hoyt am No observ ation record ed. In-Office Order Internal Use Only DO Not Attach Compendium DO Not Attach Compendium, Do Not Delete/merge, [id number] 10/31/2021 13:58:21 10/31/19 22 11/03/2021 CT, abdom en + pelvi s, w/ contr ast No observ ation record ed. [facility] Not Available 2021 13:30:48 10/31/19 22 10/31/2021 elect rocana laura diogr am No observ ation record ed. [facility] In-Office Order Internal Use Only DO Not Attach Compendium DO Not Attach Compendium, Do Not Delete/merge, [id number] 10/31/2021 13:36:30 02/22/20 22 02/21/2022 XR, chest , 2 view No observ ation record ed. [address], [place], [address], 02/22/2022 16:08:33 02/22/20 22 02/21/2022 CT, abdom en + pelvi s, w/ contr ast No observ ation record ed. [place] [id number] [facility] [address], [place], [address], 02/22/2022 16:08:49 Result Notes None recorded. Problems Name Problem SNOMED Code Status Onset Date Resolution Date Notes Provider Name and Address Organization Details Recorded Time Acute bronchitis 33732778 Active 2017 Not Available [facility] 2 03:29:31 Osteoarthriti s of knee 904704745 Active 2017 Not Available [facility] 2 03:29:31 Low back pain 285251704 Active 2017 Not Available [facility] 2 03:29:31 Seasonal allergic rhinitis 585838061 Active 2017 Not Available [facility] 2 03:29:31 Conductive hearing loss 67369862 Active 2019 Not Available [facility] 2 03:29:31 Gastric ulcer 043860792 Active 2019 Not Available [facility] 2 03:29:31 Problem Notes None recorded. Procedures Surgical History Date Name Laterality Status Provider Name and Address Organization Details Recorded Time 12/29/19 21 Hernia repair w/mesh completed ZOE Dobbs [facility] 01/03/2021 14:04:26 11/29/19 21 Date of Last Pap Smear completed Debra Whitlock [place] [facility] 10/31/2021 11:00:33 06/17/20 20 procedure on ear completed ZOE Dobbs [facility] 07/28/2020 15:25:22 12/24/19 20 colonoscopy and biopsy of colon completed ZOE Dobbs [facility] 01/06/2020 14:14:46 10/29/19 19 Date of Last Mammogram completed ZOE Dobbs [facility] 01/06/2020 14:11:48 Knee Surgery completed Sandra Tao CMA [place] [facility] 03/26/2018 14:34:21 Appendectomy completed Sandra Tao [facility] 03/26/2018 14:34:28 Imaging Results Imaging Date Name Status LastModified by Organization Details LastModified Time 09/24/2021 US, abdomen + pelvis completed [facility] [address], [place], [address], 09/25/2021 08:44:45 09/24/2021 US, abdomen + pelvis completed [facility] [address], [place], [address], 09/26/2021 13:29:34 09/26/2021 US, abdomen + pelvis completed [facility] [address], [place], [address], 09/26/2021 13:29:35 09/26/2021 US, abdomen + pelvis completed [facility] [address], [place], [address], 09/26/2021 13:29:35 09/24/2021 US, abdomen + pelvis completed [facility] [address], [place], [address], 09/26/2021 13:29:36 10/03/2021 CT, abdomen + pelvis, w/ contrast completed [facility] [address], [place], [address], 10/10/2021 09:44:10 10/31/2021 electrocardiogram completed In-Offi ce Order Internal Use Only DO Not Attach Compendium DO Not Attach Compendium, Do Not Delete/merge, [id number] 10/31/2021 13:58:21 11/03/2021 CT, abdomen + pelvis, w/ contrast completed [facility] Information not available 10/31/2021 13:30:48 10/31/2021 electrocardiogram completed [facility] In-Offi ce Order Internal Use Only DO Not Attach Compendium DO Not Attach Compendium, Do Not Delete/merge, [id number] 10/31/2021 13:36:30 02/21/2022 XR, chest, 2 view completed [facility] [address] [place] [address], [address], 02/22/2022 16:08:33 02/21/2022 CT, abdomen + pelvis, w/ contrast completed [place] [id number] [facility] [address], [place], [address], 02/22/2022 16:08:49 Procedure Notes None recorded. Medical Equipment None Reported. Allergies Allergen ID Allergen Name Allergen Category Reaction Reaction Severity Criticality Documentation Date Start Date Code Code System Note Provider Name and Address Organization Details Recorded Time 193024 aspirin medicatio n Not available Not available Not available 03/26/2018 1191 RxNorm Not Available Not Available Not Available 669467 aztreonam medicatio n Not available Not available Not available 03/26/2018 1272 RxNorm Not Available Not Available Not Available 717012 sulfameth oxazole medicatio n Not available Not available Not available 03/26/2018 00854 RxNorm Not Available Not Available Not Available 720711 Cipro medicatio n Not available Not available Not available 03/26/2018 79390 3 RxNorm Not Available Not Available Not Available 304709 adhesive tape environme nt,medica tion Not available Not available Not available 03/26/2018 87095 UNK Not Available Not Available Not Available 668443 ibuprofen medicatio n Not available Not available Not available 03/26/2018 5640 RxNorm Not Available Not Available Not Available 566979 iohexol medicatio n Not available Not available Not available 03/26/2018 5956 RxNorm Not Available Not Available Not Available 142992 latex environme nt,medica tion Not available Not available Not available 03/26/2018 18540 91 RxNorm Not Available Not Available Not Available 069184 nifedipin e medicatio n Not available Not available Not available 03/26/2018 7417 RxNorm Not Available Not Available Not Available 166933 shellfish derived food,medi cation Not available Not available Not available 03/26/2018 24795 UNK Not Available Not Available Not Available 241817 soy environme nt,food,m edication Not available Not available Not available 03/26/2018 16745 UNK Not Available Not Available Not Available 160817 vancomyci n medicatio n Not available Not available Not available 03/26/2018 91203 RxNorm Not Available Not Available Not Available 409954 terbinafi ne medicatio n Not available Not available Not available 03/26/2018 45989 RxNorm Not Available Not Available Not Available 232929 Non-stero idal anti-infl ammatory agent (product) medicatio n Not available Not available Not available 03/26/2018 49608 005 SNOMED Not Available Not Available Not Available 987190 Iodinated contrast media (substanc e) medicatio n facial swelling moderate Not available 05/22/20182017 27186 2004 SNOMED Not Available Not Available Not Available 726404 Substance with sulfonami de structure and antibacte rial mechanism of action (substanc e) medicatio n Not available Not available Not available 07/16/2018 56735 8003 SNOMED Not Available Not Available Not Available 974429 heparin medicatio n hives Not available Not available 07/28/2020 5224 RxNorm Was getti ng shot in arm due-l ocali zed Not Available Not Available Not Available Medications Name Sig Start Date Stop Date Status Note LastModified by Organization Details LastModified Time Prescript ion - Prior Authoriza tion Request 08/25 completed Not Available Not Available Not Available furosemid e 40 mg tablet TAKE 1 TABLET BY MOUTH EVERY DAY IN THE MORNING NEEDED 2021 active Not Available Not Available Not Avai lable desonide 0.05 % topical cream active Not Available Not Available Not Available Qvar 80 mcg/actua tion Metered Aerosol oral inhaler 07/16 completed Not Available Not Available Not Available neomycin- polymyxin -hydrocor t 3.5 mg/mL-10, 000 unit/mL-1 % ear solution 01/03 completed Not Available Not Available Not Available nystatin 100,000 unit/mL oral suspensio n 01/03 completed Not Available Not Available Not Available cefprozil 500 mg tablet Take 1 tablet every 24 hours by oral route. 06/05 completed Not Available Not Available Not Available prednison e 10 mg tablet take 6 tablets for three days, then 5,5,5,4, 4,4,3,3, 3,2,2,2, 1,1,1 in am with food 01/03 completed Not Available Not Available Not Available doxycycli ne hyclate 100 mg capsule TAKE 1 CAPSULE BY MOUTH TWICE DAILY AFTER MEALS FOR 10 DAYS active Not Available Not Available No t Available lamotrigi ne 200 mg tablet TAKE 1 TABLET BY MOUTH TWICE DAILY active Not Available Not Available No t Available albuterol sulfate 2.5 mg/3 mL (0.083 %) solution for nebulizat ion USE 1 VIAL VIA NEBULIZE R FOUR TIMES DAILY NEEDED active Not Available Not Available No t Available BD Luer-Calvin Syringe 3 mL 25 x 5/8 USE TO ADMINIST ER DIPHENHY DRAMINE FOR ALLERGIC REACTION S ASSOCIAT ED WITH IMMUNE GLOBULIN INFUSION S FOR IMMUNODE FICIENCY active Not Available Not Available No t Available azithromy jose c 250 mg tablet 01/03 completed Not Available Not Available Not Available Lidocaine Viscous 2 % mucosal solution 01/03 completed Not Available Not Available Not Available fluconazo le 150 mg tablet TAKE 1 TABLET BY MOUTH EVERY WEEK 01/03 completed Not Available Not Available Not Available benzonata te 200 mg capsule Take 1 capsule 3 times a day by oral route. 01/05 completed Not Available Not Available Not Available hydrocodo ne 5 mg-acetam inophen 325 mg tablet TAKE 1 TABLET BY MOUTH TWICE DAILY NEEDED active Not Available Not Available No t Available sucralfat e 1 gram tablet 01/03 completed Not Available Not Available Not Available ondansetr on HCl 4 mg tablet TAKE 1 TABLET BY MOUTH PRE-OP FOR 1 DOSE active Not Available Not Available No t Available famotidin e 40 mg tablet Take 1 tablet every day by oral route. active Not Available Not Available No t Available prednison e 20 mg tablet 01/03 completed Not Available Not Available Not Available dexametha sone 6 mg tablet TAKE 1 TABLET BY MOUTH TWICE DAILY 01/03 completed Not Available Not Available Not Available moxifloxa jose c 400 mg tablet Take 1 tablet every day by oral route in the morning for 10 days. 08/25 completed Not Available Not Available Not Available pseudoeph edrine ER 120 mg tablet,ex tended release Take 1 tablet every 12 hours by oral route. 01/03 completed Not Available Not Available Not Available metronida zole 500 mg tablet TAKE 1 TABLET BY MOUTH THREE TIMES DAILY FOR 7 DAYS 01/03 completed Not Available Not Available Not Available fluocinon rebeca 0.05 % topical ointment apply thin layer daily to rash 01/03 completed Not Available Not Available Not Available clindamyc in 1 %-benzoyl peroxide 5 % topical gel Apply 1 applicat ion(s) by topical route. 01/03 completed Not Available Not Available Not Available sulfameth oxazole 800 mg-trimet hoprim 160 mg tablet Take 1 tablet every 12 hours by oral route. 06/05 completed Not Available Not Available Not Available peg-elect rolyte solution 420 gram oral solution 01/03 completed Not Available Not Available Not Available omeprazol e 40 mg capsule,d elayed release TAKE 1 CAPSULE BY MOUTH TWICE DAILY BEFORE BREAKFAS T AND SUPPER active Not Available Not Available No t Available triamcino lone acetonide 0.1 % topical cream APPLY EXTERNAL LY TO HANDS TWICE DAILY NEEDED FOR RASH 01/03 completed Not Available Not Available Not Available theophyll ine ER 300 mg tablet,ex tended release,1 2 hr TAKE 1 TABLET BY MOUTH TWICE DAILY 2021 active Not Available Not Available Not Avai lable cefadroxi l 500 mg capsule 08/25 completed Not Available Not Available Not Available diphenhyd ramine 50 mg/mL injection solution 1 ml IM prior to infusion ; may repeat x 3 09/12 completed Not Available Not Available Not Available amlodipin e 10 mg tablet Take 1 tablet(s ) every day by oral route. active Not Available Not Available No t Available benzonata te 100 mg capsule 01/03 completed Not Available Not Available Not Available doxycycli ne monohydra te 100 mg capsule Take 1 capsule twice a day by oral route. 06/05 completed Not Available Not Available Not Available pantopraz ole 40 mg tablet,de layed release 08/25 completed Not Available Not Available Not Available cyanocoba ange (vit B-12) 1,000 mcg/mL injection solution ADMINIST ER 1 ML UNDER THE SKIN EVERY WEEK IN THE MORNING active Not Available Not Available No t Available tacrolimu s 0.1 % topical ointment 01/03 completed Not Available Not Available Not Available ferrous sulfate 325 mg (65 mg iron) tablet Take 1 tablet every day by oral route. 01/03 completed Not Available Not Available Not Available triamcino lone acetonide 0.1 % topical ointment 01/03 completed Not Available Not Available Not Available nystatin 100,000 unit/gram topical cream APPLY TOPICALL Y TO THE AFFECTED AREA 2 TO 4 TIMES PER DAY active Not Available Not Available No t Available olopatadi ne 0.1 % eye drops INSTILL 2 DROPS IN AFFECTED EYE(S) EVERY DAY active Not Available Not Available No t Available Nneka-D 12 Hour 60 mg-120 mg tablet,ex tended release 06/27 completed Not Available Not Available Not Available misoprost ol 200 mcg tablet 01/03 completed Not Available Not Available Not Available BD Safety-Lo k Tuberculi n 1 mL 25 gauge x 5/8 syringe USE FOR B12 INJECTIO N ONCE A WEEK active Not Available Not Available No t Available omeprazol e 20 mg capsule,d elayed release Take 1 capsule every day by oral route. active Take 1 in the morning and 1 in the evening- GI Doctor @ [facility] Not Available Not Available Not Available folic acid 1 mg tablet TAKE 1 TABLET BY MOUTH EVERY DAY IN THE MORNING active Not Available Not Available No t Available Unithroid 25 mcg tablet TAKE 1 TABLET BY MOUTH EVERY DAY IN THE MORNING active Not Available Not Available No t Available ergocalci ferol (vitamin D2) 1,250 mcg (50,000 unit) capsule TAKE 1 CAPSULE BY MOUTH EVERY WEEK active Not Available Not Available No t Available azelastin e 137 mcg (0.1 %) nasal spray 2 puffs in nose daily as needed active Not Available Not Available No t Available epinephri ne 0.3 mg/0.3 mL injection , auto-inje ctor INJECT 0.3 ML IN THE MUSCLE ONCE NEEDED FOR ANAPHYLA XIS active Not Available Not Available No t Available cefprozil 250 mg tablet TAKE 2 TABLETS BY MOUTH TWICE DAILY FOR 7 DAYS 01/03 completed Not Available Not Available Not Available polyethyl rafael glycol 3350 17 gram/dose oral powder MIX AND DRINK 17 GRAMS PO D 01/03 completed Not Available Not Available Not Available neomycin 500 mg tablet 01/03 completed Not Available Not Available Not Available morphine 15 mg immediate release tablet TAKE 1 TABLET BY MOUTH EVERY 6 HOURS NEEDED FOR PAIN OR SEVERE PAIN 01/03 completed Not Available Not Available Not Available theophyll ine ER 300 mg capsule,e xtended release 24 hr one po bid 2017 active [facility] Not Available Not Available Not Available cefdinir 300 mg capsule Take 1 capsule every 12 hours by oral route for 20 days. 01/03 completed Not Available Not Available Not Available fluticaso ne propionat e 50 mcg/actua tion nasal spray,carla pension [place] 2 sprays every day by intranas al route. active Not Available Not Available No t Available doxycycli ne hyclate 100 mg tablet TAKE 1 TABLET BY MOUTH TWICE DAILY FOR 4 DAYS 01/03 completed Not Available Not Available Not Available ramipril 5 mg capsule TAKE 1 CAPSULE BY MOUTH TWICE DAILY active Not Available Not Available No t Available ipratropi um bromide 0.02 % solution for inhalatio n Inhale 2.5 mL every 6 hours by inhalati on route. active Not Available Not Available No t Available amoxicill in 875 mg-potass ium clavulana te 125 mg tablet TAKE 1 TABLET BY MOUTH EVERY 12 HOURS AFTER MEALS FOR 10 DAYS active Not Available Not Available No t Available amoxicill in 500 mg-potass ium clavulana te 125 mg tablet TAKE 1 TABLET BY MOUTH TWICE DAILY WITH THE MORNING AND EVENING MEAL 09/12 completed Not Available Not Available Not Available diphenhyd ramine 50 mg/mL injection syringe INJECT 1 ML IN THE port PRIOR TO INFUSION . MAY REPEAT THREE TIMES 2019 active Not Available Not Available Not Avai lable Mucinex 600 mg tablet, extended release Take 1 tablet 3 times a day by oral route as needed. 01/03 completed Not Available Not Available Not Available ciproflox acin 0.3 %-dexamet hasone 0.1 % ear drops,carla pension SHAKE WELL AND INSTILL 4 DROPS INTO BOTH EARS TWICE DAILY FOR 7 DAYS 01/03 completed Not Available Not Available Not Available Allergy Relief (diphenhy dramine) 25 mg capsule active Not Available Not Available Not Available Spiriva with [employer] r 18 mcg and inhalatio n capsules INHALE THE CONTENTS OF 1 CAPSULE VIA INHALATI ON DEVICE EVERY DAY IN THE MORNING active Not Available Not Available No t Available Flovent HFA 110 mcg/actua tion aerosol inhaler 06/05 completed Not Available Not Available Not Available Flovent HFA 220 mcg/actua tion aerosol inhaler USE 1 INHALATI ON TWICE A DAY active Not Available Not Available No t Available Nneka-D 24 Hour 180 mg-240 mg tablet,ex tended release Take 1 tablet every day by oral route in the morning. 2019 active Not Available Not Available Not Avai lable EasiVent Holding Chamber active Not Available Not Available Not Available ProAir HFA 90 mcg/actua tion aerosol inhaler INHALE 2 PUFFS BY MOUTH EVERY 4 HOURS NEEDED active Not Available Not Available No t Available peg 3350-elec trolytes 236 gram-22.7 4 gram-6.74 gram-5.86 gram solution 01/03 completed Not Available Not Available Not Available olopatadi ne 0.6 % nasal spray [place] 2 sprays every day by intranas al route as needed. 01/03 completed Not Available Not Available Not Available Dulera 200 mcg-5 mcg/actua tion HFA aerosol inhaler USE 2 INHALATI ONS TWICE A DAY active Not Available Not Available No t Available Allergy Relief (fexofena dine) 180 mg tablet TAKE 1 TABLET BY MOUTH EVERY DAY active Not Available Not Available No t Available Nneka Allergy active Not Available Not Available Not Available Xarelto 20 mg tablet Take 1 tablet every day by oral route. active Not Available Not Available No t Available tobramyci n add contents of one capsule and saline. irrigate each nostrile with 120 ML of medicine twice each day 01/03 completed Not Available Not Available Not Available clindamyc in 1 %-benzoyl peroxide 5 % topical gel with pump APPLY TOPICALL Y TO THE AFFECTED AREA TWICE DAILY DIRECTED 09/12 completed Not Available Not Available Not Available Flucelvax Quad 2866-9584 (PF) 60 mcg (15 mcg x 4)/0.5 mL IM syringe 06/27 completed Not Available Not Available Not Available Flucelvax Quad (PF) 60 mcg (15 mcg x 4)/0.5 mL IM syringe 07/28 completed Not Available Not Available Not Available Vitals Date Recorded Body height Body mass index (BMI) Body weight Oxygen saturation Oxygen saturation in Arterial blood by Pulse oximetry Heart rate Systolic blood pressure Diastolic blood pressure Provider Name and Address Organization Details Last Updated DateTime 1 171.45 cm 38.4 kg/m2 623910. 5 g 99 % 99 % 87 /min 110 mm[Hg] 70 mm[Hg] Chloe Montaño MA [facility] 1 10:28:44 Date Recorded Body height Body mass index (BMI) Body weight Oxygen saturation Oxygen saturation in Arterial blood by Pulse oximetry Heart rate Respiratory rate Body temperature Systolic blood pressure Diastolic blood pressure Provider Name and Address Organization Details Last Updated DateTime 1 171.45 cm 39.1 kg/m2 259897. 02 g 98 % 98 % 68 /min 16 /min 98.6 [degF] 140 mm[Hg] 80 mm[Hg] Chester Corea MA [facility] 1 12:06:17 Date Recorded Body height Body mass index (BMI) Body weight Oxygen saturation Oxygen saturation in Arterial blood by Pulse oximetry Heart rate Systolic blood pressure Diastolic blood pressure Provider Name and Address Organization Details Last Updated DateTime 2 171.45 cm 39.8 kg/m2 557581. 83 g 98 % 98 % 86 /min 114 mm[Hg] 82 mm[Hg] Debra Whitlock [facility] 2 11:03:11 Date Recorded Body height Body mass index (BMI) Body weight Body temperature Oxygen saturation Oxygen saturation in Arterial blood by Pulse oximetry Heart rate Systolic blood pressure Diastolic blood pressure Provider Name and Address Organization Details Last Updated DateTime 2 171.45 cm 40.4 kg/m2 294573. 2 g 98.1 [degF] 95 % 95 % 102 /min 116 mm[Hg] 78 mm[Hg] Altaf Samuel MA [place] - [facility] 2 14:26:55 Social History Question Answer Notes LastModified by Organizat ion Details LastModified Time Tobacco Smoking Status Never Smoker Sandra Tao, LAURITA null, [place] - [facility] 03/26/2018 14:45:09 Do You Have An Advance Directive? No Information not available 01/06/2020 What Is Your Level Of Alcohol Consumption? Occasional Socially Information not available 01/03/2021 Are You Blind Or Do You Have Difficulty Seeing? No Information not available 01/03/2021 What Is Your Level Of Caffeine Consumption? Moderate [email or web address] Information not available 04/21/2021 How Much Tobacco Do You Chew? None Information not available 01/06/2020 In The 14 Days Before Symptom Onset, Have You Had Close Contact With A Laboratory-confi rmed COVID-19 While That Case Was Ill? No Information not available 01/03/2021 In The 14 Days Before Symptom Onset, Have You Had Close Contact With A Person Who Is Under Investigation For COVID-19 While That Person Was Ill? No Information not available 01/03/2021 Have You Been To An Area Known To Be High Risk For COVID-19? No Information not available 01/03/2021 Are You Currently Employed? No Information not available 01/06/2020 Are You Deaf Or Do You Have Serious Difficulty Hearing? 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 REGULAR Information not available 01/03/2021 Which Illicit Or Recreational Drugs Have You Used? None Information not available 01/06/2020 Do You Or Have You Ever Used E-cigarettes Or Vape? Never Used Electronic Cigarettes Information not available 10/17/2019 Education 2 Year College Information not available 01/06/2020 What Is Your Occupation? Disability Information not available 09/12/2021 Are There Any Guns Present In Your Home? No Information not available 09/12/2021 Hard Of Hearing Or Deaf In One Or Both Ears? Yes Information not available 01/06/2020 Legally Blind In One Or Both Eyes? No Information not available 01/06/2020 Live Alone Or With Others? With Others Information not available 01/06/2020 Do You Have A High School Diploma Or Higher Education? Yes Information not available 09/12/2021 Do You Sometimes Have To Miss Your Medical Appointments Due To Difficult Getting Transportation? No Information not available 09/12/2021 Do You Feel Unfairly Treated Due To Things Such As Race, Age, Gender, Disability Or Some Other Reason? Yes Information not available 09/12/2021 Do You Feel Physically And Emotionally Safe While Living At Home? Yes Information not available 09/12/2021 Do You Feel Physically And Emotionally Safe In Your Neighborhood Or Other Public Places? Yes Information not available 09/12/2021 What Was The Date Of Your Most Recent Tobacco Screening? 10/31/2021 [email or web address] Information not available 10/31/2021 How Many Children Do You Have? 0 Information not available 01/06/2020 What Is Your Relationship Status? Information not available 09/12/2021 Do You Use Your Seat Belt Or Car Seat Routinely? Yes Information not available 09/12/2021 Are You Sexually Active? No Information not available 09/12/2021 Do You Have Smoke And Carbon Monoxide Detectors In Your Home? Yes Information not available 01/03/2021 Are You Passively Exposed To Smoke? No Child Information not available 07/28/2020 Do You Or Have You Ever Used Smokeless Tobacco? Never Used Smokeless Tobacco Information not available 10/17/2019 How Much Tobacco Do You Smoke? No Information not available 10/17/2019 General Stress Level Medium Information not available 01/06/2020 Do You Feel Stressed (tense, Restless, Nervous, Or Anxious, Or Unable To Sleep At Night)? [id number] Information not available 09/12/2021 Do You Use Sunscreen Routinely? Yes Information not available 09/12/2021 Has Tobacco Cessation Counseling Been Provided? No Information not available 01/03/2021 On What Date Was Tobacco Cessation Counseling Provided? 03/09/2020 Information not available 03/09/2020 How Many Years Have You Smoked Tobacco? 0 Information not available 10/17/2019 Do You Or Have You Ever Used Any Other Forms Of Tobacco Or Nicotine? No Information not available 01/03/2021 Sex: Female Functional Status Question Answer Note LastModified by Organizat ion Details LastModified Time Are you able to care for yourself? Yes Information not available 01/06/2020 What is your exercise level? Occasional Information not available 09/12/2021 Mental Status None recorded. Family History Relationship Description Onset Age of this Age Resolved Age Notes LastModified by Organization Details LastModified Time Father Malignant tumor of colon [email or web address] Not available 2017 14:35:13 Father Diabetes mellitus thulsema Not available 2017 14:35:33 Father Hypertensive disorder thulsema Not available 2017 14:35:54 Father Malignant tumor of prostate thulsema Not available 2017 14:36:33 Mother Coronary arterioscler osis thulsema Not available 2017 14:35:21 Mother Disorder of thyroid gland thulsema Not available 2017 14:35:44 Mother Hypertensive disorder thulsema Not available 2017 14:35:54 Mother Hypercholest erolemia thulsema Not available 2017 14:36:03 Mother Myocardial infarction thulsema Not available 03/26 14:36:13 Mother Osteoporosis thulsema Not avail able 03/26/2018 14:36:23 Mother Dementia Relate d to Calciu m deposi ts in her arteri es [email or web address] Not available 01/03/2021 14:02:10 Mother Vascular dementia [email or web address] Not available 2020 14:04:34 Brother Diabetes mellitus thulsema Not available 2017 14:35:33 Medical History Condition Response Coronary Artery Disease N Other N Atrial Fibrillation N High Blood Pressure Y Depression N COPD Y Blood Clots Y Anxiety Disorder Y Muscle, Joint, or Bone Problems Y Acid Reflux (GERD) Y Cancer N Stroke N Headaches N Kidney or Bladder Problems N Eating Disorder N Skin Problems Y Asthma Y Allergies Y Substance Abuse N Hepatitis N ADHD N High Cholesterol Y Liver Disease N Schizophrenia N Thyroid Problems Y GI Problems Y Anemia N Heart Attack (NC) N Diabetes N Seizures/Epilepsy N Heart Failure N Osteoporosis N Gynecological History Statement/Question Response Menses Monthly N Date of Last Pap Smear 11/29/2020 Age at Menarche 7 Date of Last Mammogram 10/29/2018 Obstetrics History GPAL:G 0 P 0 0 0 0 Type Value Multiple Births 0 Full Term 0 Induced 0 Spontaneous 0 Premature 0 Living 0 Ectopics 0 Total 0 Immunizations Vaccine Type Date Status Note Provider Nam e and Address Organization Details Recorded Time influenza, unspecified formulation 9 completed Not Available [facility] 02/03/2022 03:29:32 influenza, unspecified formulation 0 completed Not Available [facility] 02/03/2022 03:29:32 COVID-19, mRNA, LNP-S, PF, 100 mcg/0.5mL dose or 50 mcg/0.25mL dose 1 completed Not Available [facility] 02/03/2022 03:29:32 COVID-19, mRNA, LNP-S, PF, 30 mcg/0.3 mL dose 1 completed Not Available [facility] 02/03/2022 03:29:32 COVID-19, mRNA, LNP-S, PF, 30 mcg/0.3 mL dose 1 completed Not Available [facility] 02/03/2022 03:29:32 pneumococcal, unspecified formulation 6 completed Not Available [facility] 02/03/2022 03:29:31 Influenza, split virus, quadrivalent, PF 8 completed Not Available [facility] 11/15/2019 02:45:24 pneumococcal polysaccharide PPV23 8 completed Not Available [facility] 11/15/2019 02:36:24 Pneumococcal conjugate PCV 13 5 completed Not Available [facility] 02/03/2022 03:29:32 Past Encounters Encounter ID Performer Location Encounter Start Date Encounter Closed Date Diagnosis/Indication Diagnosis SNOMED-CT Code Diagnosis ICD10 Code Diagnosis Note [id number] Graciela Lee MD [facility] [address] [place] [address] 03/26/2018 13:55:48 03/29/2018 15:26:58 Acute bronchitis 66701116 J20.9 Chicken soup, orange juice, popsicles, snow cones, slurpees, ice cream, tea with honey and lemon, hot lemonade, gatorade, and yogurt may make you feel better. Chronic low back pain 27 5960836 M54.5 patient takes hydrocodon e as needed. Acute bila teral otitis media 866064556 H66.93 Avelox should help Immunodefi ciency disorder 048472780 D84.9 continue immunoglob ulin infections ; uses benadryl injections if needed for reactions. Osteoarthr itis of knee 792430839 M17.0 Standardiz ed adult depression screening tool completed 1829038635 42197 Z13.89 no sign of depression . Body mass index 30+ - obesity 416686120 Z68.37 discussed low fat, low carb diet, and encouraged exercise. [id number] Graciela Lee MD [facility] [address] [place] [address] 06/27/2018 12:04:56 06/27/2018 15:15:46 Osteoarthritis of knee 900688702 M17.0 Acute sinusitis 50597109 J01.90 patient specifical ly requested Septra since she did have a previous reaction, but was on multiple new medication s at the time, and she thought she might be able to tolerate sulfa antibiotic s. History of steroid therapy 860617272 Z92.241 History of deep vein thrombosis 142279754 Z86.787 [id number] Graciela Lee MD [facility] [address] [place] [address] 07/16/2018 11:30:40 07/17/2018 11:47:03 Osteoarthritis of knee 211852041 M17.0 Not up to date with immunizations 705184909 Z28.3 Acute bronchitis 5046408 2 J20.9 patient has immune suppressio n and gets lung infections frequently . [id number] Graciela Lee MD [facility] [address] [place] [address] 08/15/2018 13:36:08 08/15/2018 14:34:35 Rosacea 752190174 L71.9 Gallbladder pain 0034220 00 K82.9 [id number] Graciela Lee MD [facility] [address] [place] [address] 09/17/2018 11:09:39 10/03/2018 14:57:42 Acute sinusitis 34914480 J01.90 Patient had sinus surgery yesterday and is coming in for pain medication related to postop pain. Essential hypertension 99511399 I10 Moderate p ersistent asthma 122534090 J45.40 [id number] Graciela Lee MD [facility] [address] [place] [address] 10/15/2018 14:26:55 10/24/2018 10:31:36 Acute sinusitis 65765180 J01.90 Patient had sinus surgery yesterday and is coming in for pain medication related to postop pain. Moderate p ersistent asthma 520680517 J45.40 [id number] Graciela Lee MD [facility] [address] [place] [address] 11/14/2018 11:27:44 11/21/2018 11:27:21 Acute bronchitis 15165142 J20.9 patient has immune suppressio n and gets lung infections frequently . Standardiz ed adult depression screening tool completed 5682622075 19420 Z13.89 no sign of depression . [id number] Graciela Lee MD [facility] [address] [place] [address] 12/16/2018 11:34:45 12/23/2018 09:59:52 Chronic obstructive pulmonary disease 36932781 J44.9 If culture is resistant to everything but Zyvox, patient may need a prescripti on for Zyvox. Essential hypertension 15921021 I10 Eczema 84756943 L30.9 Allergic reaction 056397 005 T78.40XD patient gets infusions of immunoglob ulins every month and takes 3-5 ml of benadryl to control reactions to the infusions. Allergic rhinitis 231364 04 J30.9 Low back pain 880047237 M54.5 Left lower quadrant pain 651438217 R10.32 [id number] Graciela Lee MD [facility] [address] [place] [address] 01/06/2019 14:23:10 01/13/2019 07:57:49 Hyperthyroidism 01905303 E05.90 Iron defic iency anemia 72901748 D50.9 [id number] Graciela Lee MD [facility] [address] [place] [address] 02/10/2019 11:26:04 02/17/2019 08:41:14 Acute bronchitis 64945394 J20.9 patient has immune suppressio n and gets lung infections frequently . Tachycardia 6356392 R00. [address] Samayoa at [facility] [id number] E04.9 Combined immunodeficiency disease 140961019 D81.9 [id number] Graciela Lee MD [facility] [address] [place] [address] 03/05/2019 13:53:15 03/10/2019 08:18:08 Chronic hoarseness 1563348328 105 R49.0 Hernia of anterior abdominal wall 490531565 K43.9 Low back pain 767937707 M54.5 [id number] Graciela Lee MD [facility] [address] [place] [address] 04/24/2019 13:30:56 05/02/2019 08:34:14 Acute bronchitis 95171559 J20.9 patient has immune suppressio n and gets lung infections frequently . Osteoarthr itis of knee 830621783 M17.0 History of repair of umbilical hernia 225552567 Z98.890 may have reinjured her abdominal wall by heavy lifting after surgery. Will follow up with surgeon. 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 Serous kyle tis media of right ear 7167023314 638847 H65.91 Chronic re spiratory failure 80883427 J96.10 Gastroesop hageal reflux disease without esophagitis 676002792 K21.9 [id number] Graciela Lee MD [facility] [address] [place] [address] 09/10/2019 14:26:47 09/15/2019 09:38:11 Chronic diarrhea of unknown origin 96038909 K52.9 please send results to Dr. Lane Mixed hyperlipidemia 267 677653 E78.2 Osteoarthr itis of knee 929376327 M17.0 [id number] Graciela Lee MD [facility] [address] [place] [address] 10/17/2019 13:27:50 10/20/2019 14:40:32 Acute sinusitis 93160670 J01.90 Allergic rhinitis 244562 04 J30.9 Essential hypertension 89396611 I10 Moderate p ersistent asthma 190794650 J45.40 Gastrointe stinal hemorrhage 07023249 K92.2 Rosacea, e rythematous telangiectatic type 688464 L71.8 [id number] Graciela Lee MD [facility] [address] [place] [address] 11/21/2019 13:19:44 11/24/2019 10:59:35 Cough 34038571 R05 Osteoarthr itis of knee 938284713 M17.0 Chronic ob structive pulmonary disease 79778907 J44.9 Allergic reaction 082692 005 T78.40XD patient gets infusions of immunoglob ulins every month and takes 3-5 ml of benadryl to control reactions to the infusions. Acute bronchitis 5699631 2 J20.9 patient has immune suppressio n and gets lung infections frequently . Depression screening [id number] Z13.31 patient does not appear to be significan tly depressed. [id number] Graciela Lee MD [facility] [address] [place] [address] 01/06/2020 13:27:22 01/12/2020 08:20:19 Pre-surgery evaluation [id number] Z01.818 needs ear surgery. Decreased hearing acuity, increased pain and pressure. Osteoarthr itis of knee 856769030 M17.0 Gastritis 9244313 K29.70 [id number] Graciela Lee MD [facility] [address] [place] [address] 03/09/2020 09:28:47 03/12/2020 00:30:24 Osteoarthritis of knee 932083887 M17.0 Allergic reaction 178075 005 T78.40XD patient gets infusions of immunoglob ulins every month and takes 3-5 ml of benadryl to control reactions to the infusions. Eczema 53183992 L30.9 use to administer diphenhydr amine for allergic reactions for gamma globulin infusions [id number] Graciela Lee MD [facility] [address] [place] [address] 07/28/2020 15:21:48 07/29/2020 10:39:16 Allergic rhinitis 06201418 J30.9 Acute sinusitis 23640472 J01.90 Moderate p ersistent asthma 196994609 J45.40 Essential hypertension 89581641 I10 Vitamin D deficiency 347 14131 E55.9 Osteoarthr itis of knee 988346359 M17.0 [id number] Graciela Lee MD [facility] [address] [place] [address] 01/03/2021 08:05:36 01/10/2021 09:36:09 History of hernia repair [id number] 9109 Z98.890 patient will follow up with DR. Zhou as scheduled. [id number] Graciela Lee MD [facility] [address] [place] [address] 04/21/2021 08:19:09 04/27/2021 09:58:44 Postoperative pain 433197184 G89.18 post operative infection which will need surgery. [id number] Boogie Meyer MD [facility] [address] [place] [address] 06/06/2021 09:46:11 06/13/2021 13:51:14 Chronic obstructive pulmonary disease 88340569 J44.9 acute bronchitis history.. . 2 liters NC prn... Osteoarthr itis of knee 046235668 M17.9 right knee mostly... received injections ... Obesity 567662512 E66.9 diet and exercise.. . Allergic rhinitis 667976 04 J30.9 meds and follow up.... Essential hypertension 43554266 I10 amlodipine 10 mg po daily/losa rtan 100 mg Deep venou s thrombosis 974850989 I82.409 on Xarelto... Gastroesop hageal reflux disease 928175591 K21.9 omeprazole ... Hernia of abdominal cavity 09559808 K46.9 recent surgeries. .. had GB removed... [id number] Boogie Meyer MD [facility] [address] [place] [address] 09/12/2021 10:43:03 09/14/2021 12:18:07 Polyuria 19203425 R35.81 check and follow up.. Chronic ob structive pulmonary disease 42989006 J44.9 acute bronchitis history.. . 2 liters NC prn... Osteoarthr itis of knee 855558159 M17.9 right knee mostly... received injections ... Obesity 156318830 E66.9 diet and exercise.. . Allergic rhinitis 353272 04 J30.9 meds and follow up.... Essential hypertension 83054968 I10 amlodipine 10 mg po daily/losa rtan 100 mg Deep venou s thrombosis 934323519 I82.409 on Xarelto... Gastroesop hageal reflux disease 985292410 K21.9 omeprazole ... Hernia of abdominal cavity 73155919 K46.9 recent surgeries. .. had GB removed... ... Dysuria 63989255 R30.9 urine negative.. . U/s... [id number] Boogie Meyer MD [facility] [address] [place] [address] 10/31/2021 10:41:38 11/07/2021 10:57:09 Chronic obstructive pulmonary disease 87241282 J44.9 acute bronchitis history.. . 2 liters NC prn... Osteoarthr itis of knee 989220665 M17.9 right knee mostly... received injections ... Obesity 078970141 E66.9 diet and exercise.. . Allergic rhinitis 701273 04 J30.9 meds and follow up.... Essential hypertension 13709519 I10 amlodipine 10 mg po daily/losa rtan 100 mg Deep venou s thrombosis 324875174 I82.409 on Xarelto... Gastroesop hageal reflux disease 673674167 K21.9 omeprazole ... Hernia of abdominal cavity 82553260 K46.9 recent surgeries. .. had GB removed... -2020... Electrocar diogram abnormal 159572766 R94.31 reorder and follow up... [id number] Tim Leos MD [facility] (Adult Med) [address] [place] [address] 01/03/2022 13:23:21 01/04/2022 06:13:24 Chronic otitis media 47023119 H65.01 Culture of right ear obtained, she can take penicillin s and it derivative , she agreed to try amoxicilli n for the mean time, Acid reflux 761639885 K2 1.9 Wants refill omeprazole . Degenerati ve joint disease involving multiple joints 921177750 M15.9 Discussed with patient, she has been on hydrocodon e for the past 15 years. some dependence might have developed, due to comlexicit y of policy, will refer to pain management clinic, initially was referred to [facility], but she will find her own in the local area. 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 Disorder o f thyroid gland 59786892 E07.9 Under the care of [facility]. Health Concerns Section Related Observation LastModified by Organization Detai ls LastModified Time None Recorded Concern Status LastModified by Organization Details LastModified Time None Recorded Advance Directives Directive N: Payers Encounter Date Sequence Insurance Name Policy Number Policy Clements Covered Member ID Clements Member ID Guarantor Name 04/21/2021 1 [place] Tracey Navarro Petra [id number] Tracey Petra 04/21/2021 2 WPS - FOR LIFE (MEDICARE SUPPLEMENT) Tracey Petra [id number] Tracey Petra 06/06/2021 1 [place] Tracey Navarro Petra [id number] Tracey Petra 06/06/2021 2 [employer] - FOR LIFE (MEDICARE SUPPLEMENT) Tracey Petra [id number] Tracey Petra 09/12/2021 1 [place] Tracey Navarro Petra [id number] Tracey Petra 09/12/2021 2 [employer] - FOR LIFE (MEDICARE SUPPLEMENT) Tracey Petra [id number] Tracey Petra 10/31/2021 1 [place] Tracey Navarro Petra [id number] Tracey Petra 10/31/2021 2 [employer] - FOR LIFE (MEDICARE SUPPLEMENT) Tracey Petra [id number] Tracey Petra 01/03/2022 1 [place] Tracey Navarro Petra [id number] Tracey Petra 01/03/2022 2 [employer] - FOR LIFE (MEDICARE SUPPLEMENT) Tracey Petra [id number] Tracey Lambert Notes Date Note Type Note Provider Name and Address Organization Details Recorded Time 04/21/2021 text/html Abdominal PainReported bypatient.Location:LL Q; RLQ Quality:bloating;cram ping;sharp;stabbing Severity:moderate Duration:intermittent Onset/Timing:worse; wax/wane Associated Symptoms:no fever; no blood in the urine;chills;heartbur n;shortness of breath;nausea;decreas ed appetite Other:denies possible Graciela Lee MD Attn: Accounting,[address] [place], [address], [facility] 05/01/2021 17:06:23 06/06/2021 text/html non smoker... ra re drinker... has had abdominal surgeries in ther past... here to day for refills... right knee pain also... will start to exercise soon... Boogie Meyer MD Attn: Accounting[address] [place], [address], [facility] 06/06/2021 11:44:00 09/12/2021 text/html polyuria/dysuria x 5 months... no blood... positive chills at times...has diarrhea at times, but has GI issues also... had evin in past... Boogie Meyer MD Attn: Accounting[address] [place], [address], [facility] 09/12/2021 13:14:57 10/31/2021 text/html no fevers/chills/SOB... has low back at times from renal stones dx 10-03-2021... stressed, but no S/H ideations... 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 Also has thyroid disease which is under the care of her director medical economics at [facility] long lists, 17 of them, of allergy reviewed. Tim Leos MD Attn: Accounting, [address] [place], [address], [facility] 01/04/2022 16:23:40 OBGyn Episode No OBEpisode recorded.
--- OUTSIDE RECORDS SUMMARY | 2024-12-14 13:19 | XMS_ITS | Encounter Summary ---
Author Organization [facility] Address [facility] [place] [address] Care Team Providers Care Flooring Salesperson Name Role Phone Theodore Zamora DO Primary Care Provider + Nena Holland RN Unavailable [phone] Bonifacio Easton MD Unavailable Encounter Details Date Type Department Care Team (Late st Contact Info) Description 04/12/2024 MyChart Message Enc [facility] Family & Internal Medicine [facility] [address] [place] [address] Theodore Zamora DO [address] [place] [address] Base refills Social History Tobacco Use Types Packs/Day Years Used Date Smoking Tobacco: Never Passive Smoke Exposure: Past Smokeless Tobacco: Never Alcohol Use Standard Drinks/Week Comments Yes 0 (1 standard drink = 0.6 oz pur e alcohol) occasional Overall Financial Resource Strain (CARDIA) Kirk r Date Recorded How hard is it for you to pa y for the very basics like food, housing, medical care, and heating? Not hard at all 07/30/2023 PHQ-2 Answer Date Recorded Patient Health Questionnaire-2 Score 0 11/14/2023 Hunger Vital Sign Answer Date Recorded Within the past 12 months, y ou worried that your food would run out before you got the money to buy more. Never true 07/30/20 23 Within the past 12 months, t he food you bought just didn't last and you didn't have money to get more. Never true 07/30/2023 PRAPARE - Transportation Answer Date Re corded In the past 12 months, has l ack of transportation kept you from medical appointments or from getting medications? No 11/2022 In the past 12 months, has l ack of transportation kept you from meetings, work, or from getting things needed for daily living? No 07/30/2023 Housing Stability Vital Sign Answer Yahir e Recorded In the last 12 months, was t here a time when you were not able to pay the mortgage or rent on time? No 07/30/2023 In the last 12 months, how many places have you lived? 1 07/30/2023 In the last 12 months, was t here a time when you did not have a steady place to sleep or slept in a skilled nursing (including now)? No 07/30/2023 Comments No Sex and Gender Information Value Date Recorded Sex Assigned at Female 11/26/2024 1:20 PM BATCH FREEZER Legal Sex Female 5:37 PM CDT Gender Identity Female 11/26/2024 1:20 PM BATCH FREEZER Sexual Orientation Not on file Occupation Industry Job Start Date Job End Date unemployed Not on file Not on file Not on file documented as of this encounter Progress Notes * Theodore Zamora DO - 04/15/2024 8:38 AM CDT We have trouble filling that one sometimes from a cost perspective; I'd recommend having her specimen boss continue filling that. * Liliana Erickson MA - 04/14/2024 1:51 PM CDT Xarelto sent. Spiriva has been filled previously by pulm. Bonifacio Easton MD Please advise on sending rx fro spiriva * Liliana Erickson MA - 04/14/2024 1:49 PM CDTFrom: Tracey Lambert To: Dr. Theodore Zamora Sent: 04/12/2024 11:38 AM CDT Subject: Base refills Good morning, Can you please send refills to [facility] for two scrips. 1. Spiriva inhaler 2. Xarelto Thank you, Tracey Lambert [phone]. documented in this encounter Plan of Treatment Upcoming Encounters Date Type Department Care Team (Late st Contact Info) Description 12/16/2024 11:30 AM BATCH FREEZER Appointment [facility] [address] [place] [address] Marcus, MD Joyeclyn 12/16/2024 1:00 PM BATCH FREEZER Appointment [facility] [address] [place] [address] Patel Garay MD [address] [address] 02/24/2025 1:00 PM CDT Office Visit [facility] Family & Internal Medicine - [address] [address] Theodore Zamora DO [address] [place] [address] documented as of this encounter Goals Goal Patient Goal Type Associated Problems Recent Progress Patient-Stated? Author Consistently take medications as Prescribed General On track(2024 3:27 PM BATCH FREEZER) No Nena Holland, RN Establish Plan for Symptom Monitoring- COPD/Asthma General On track(2024 3:27 PM BATCH FREEZER) No Nena Holland, RN Note: COPD/Asthma: Patient will recognize symptoms of COPD/Asthma exacerbation and report to the physician. If severe, patient will seek emergent treatment at [facility] or ER. 01/24/23: Patient seen by (Thread Inspector) on 01/10/23 and will f/u on 03/28/23. Reduce Blood Pressure Lifestyle On track(2024 3:27 PM BATCH FREEZER) No Nena Holland RN Note: Patient to monitor blood pressure weekly and report the onset of any changes. Patient will take medications as directed. documented as of this encounter Visit Diagnoses Diagnosis History of pulmonary embolism Personal history of pulmonary embolism documented in this encounter Additional Health Concerns Assessment Noted Time PHQ-9 Depression Total Score: 0 04/21/20 8:42 AM CDT documented as of this encounter Care Teams Flooring Salesperson Relationship Specialty Start Date End Date Theodore Zamora DO [address] [place] [address] PCP - General FAMILY PRACTICE 03/15/22 Nena Holland RN [address] [place], [place] [phone] International Recruiter (Ambulatory) REGISTERED NURSE 03/17/22 Bonifacio Easton MD [address] [place] [id number] PULMONARY DISEASE 08/29/22 documented as of this encounter
--- OUTSIDE RECORDS SUMMARY | 2024-12-14 13:19 | XMS_ITS | Encounter Summary ---
Author Organization [facility] Address [address] [place] [address] Care Team Providers Care Teacher Tutor Name Role Phone Gerardo Angeles MD Unavailable [phone] Edgar Piper MD Unavailable [phone] Ruby Manzano MD Unavailable Unavailable Stanley Quezada MD Unavailable [phone] Graciela Artis MD Primary Care Provider [phone] Theodore Zamora DO Primary Care Provider + Encounter Details Date Type Department Care Team (Late st Contact Info) Description 04/02/2023 Telephone [facility] - Allergy [address] [place] [address], [place] [phone] Stanley Quezada MD [address] [place] [address] OF ALLERGY/[place] [address] Social History Tobacco Use Types Packs/Day Years Used Date Smoking Tobacco: Never Smokeless Tobacco: Never Alcohol Use Standard Drinks/Week Comments Yes 0 (1 standard drink = 0.6 oz pur e alcohol) Socially AUDIT-C Answer Date Recorded Q1: How often do you have a drink containing alc ohol? Monthly or less 06/08/2022 Q2: How many drinks containi ng alcohol do you have on a typical day when you are drinking? 1 or 2 06/08/2022 Q3: How often do you have si x or more drinks on one occasion? Never 06/08/2022 PHQ-2 Answer Date Recorded PHQ2 TOTAL SCORE 0 06/28/2022 Sex and Gender Information Value Date Recorded Sex Assigned at Not on file Gender Identity Not on file Sexual Orientation Not on file documented as of this encounter Functional Status Functional Status Response Date of Assess ment Is person deaf or have serious hearing difficult y? No 01/25/2021 Is person blind or have serious difficulty seein g? No 01/25/2021 Does person have serious dif ficulty walking/climbing stairs? No 01/25/2021 Does person have difficulty dressing/bathing? No 01/25/2021 Does person have difficulty doing errands alone? No 01/25/2021 Cognitive Status Response Date of Assessm ent Does person have difficulty concentrating/remembering/making decisions? No 01/25/2021 documented as of this encounter Miscellaneous Notes * Telephone Encounter - Stanley Quezada MD - 04/02/2023 5:24 PM CDT 04/02/2023 Received message taken in clinic to call back Dr. Lazar. Called [phone], left VM message at 5.30 PM. Subsequently spoke to him, discussed timing of IVIG vs surgical procedure. Plan to give dose of IVIG within days of surgical procedure. UCT SALES REPRESENTATIVE documented in this encounter Plan of Treatment Upcoming Encounters Date Type Department Care Team (Late st Contact Info) Description 03/18/2025 8:00 PM CDT Procedure visit [facility] - Sleep Services [address] [place] [phone] 03/30/2025 11:00 AM CDT Office Visit [facility] - Pulmonology [address] [place] [address], [place] [address] Boniafcio Easton MD [address] [place] [address] OF PULMONARY/[place] [phone] 04/01/2025 1:00 PM CDT Office Visit [facility] - Dermatology [address] [place] [address], [place] [address] Ty Molina MD [address] [place] [address] [address] Dept [place] [address] 05/20/2025 3:00 PM CDT Office Visit [facility] - Allergy [address] [place] [address], [place] [address] Stanley Quezada MD [address] [place] [address] [address] DIV OF ALLERGY/[place] [address] documented as of this encounter Goals Goal Patient Goal Type Associated Problems Recent Progress Patient-Stated? Author Medication Management General On track( 020 8:56 AM CDT) Ac Rodriguez, RN Note: Expected end date: ongoing Interventions: Take all medications as prescribed Let your doctor know right away about any changes in your medications Make sure to request a refill of your medication at least one week prior to your last dose documented as of this encounter Visit Diagnoses Not on filedocumented in this encounter Care Teams Teacher Tutor Relationship Specialty Start Date End Date Graciela Artis MD [address] [place] [phone] PCP - General 07/04/22 04/10/23 Theodore Zamora DO [address] [place] [address] PCP - General Family Medicine Geriatric Medicine 04/11/23 Gerardo Angeles MD Otolaryngology 07/16/19 Edgar Piper MD Otolaryngology 07/16/19 Ruby Manzano MD Dermatology 07/16/19 Stanley Quezada MD [facility] [address] [address] Allergy and Immunology 07/16/19 documented as of this encounter
--- OUTSIDE RECORDS SUMMARY | 2024-12-14 13:19 | XMS_ITS | Referral Summary ---
Author Organization [facility] Address [address] [place] [address] Care Team Providers Care [employer] Person Name Role Phone Theodore Zamora DO Primary Care Provide r Encounters Date Type Department Care Team Description 12/01/2024 10:00 AM ENVIRONMENTAL STUDIES FACULTY MEMBER Pre-Admission Testing [facility] Center for Preoperative Assessment and Planning [facility] ([facility]) [address] [place] [address] Preoperative testing (Primary Dx) 11/28/2024 Telephone Advanced Medicine ([facility]) - [facility] Minimally Invasive Surgery [address] [facility] [address], [place] [address] Davide Catherine MD Medical Question/Miscellaneo us from Last 3 Months Allergies Active Allergy Reactions Criticality Noted Date Comments Adhesive Rash,Other (See comments) Medium 03/27/2019 Other reaction(s): rash Adhesive Tape-Silicones Rash Medium Aspirin Anaphylaxis,Hives,U nknown High 11/12/2003 Tongue swelling, SOB, went to ER... Given med's no artificial airway needed epi pen steroids and benadryl Other reaction(s): anaphylaxis ANAPHYLAXIS (PER 3066 5--03) Aztreonam Fever,Other (See comments),Rash High 09/20/2013 Severe hives with over all rash and skin peeled off Other reaction(s): RASH Aztreonam In Dextrose(Iso-Osm) Fever,Rash,Other (See comments) High 09/20/2013 Severe hives with over all rash and skin peeled off Chlorhexidine Rash Medium 08/29/2022 Ciprofloxacin Rash,Other (See comments) Medium 07/10/2014 Other reaction(s): Unknown Heparin Other (See comments) Low 06/14/2020 Red areas where heparin was given subQ Ibuprofen Anaphylaxis,Other (See comments),Unknown High 11/12/2003 Reaction: Other Tongue swelling, went to ER received meds, no artifical airway needed per 3066 (3-6-03) Iohexol Shortness of breath High 08/22/2012 Latex Shortness of breath,Swelling,Oth er (See comments) High 12/15/2011 Swelling of where ever the latex touches Other reaction(s): Dyspnea Nifedipine Dizziness,Hives,Urt icaria,Other (See comments) Medium 02/16/2011 Other reaction(s): Urticaria Nsaids (Non-Steroidal Anti-Inflammatory Drug) Anaphylaxis High 09/01/2024 Ondansetron Other (See comments),Palpitati ons Low 05/10/2021 When taken in high frequent doses Other Unknown 11/12/2003 Prochlorperazine Other (See comments),Unknown Low 03/03/2021 Pt. 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 Medications Flovent HFA 220 mcg/actuation inhalerIndicat ions:Maintenan ce Therapy for Asthma Inhale 1 puff every morning 021 Active albuterol 2.5 mg /3 mL (0.083 %) nebulizer solutionIndica tions:Acute Asthma Attack,Chronic Obstructive Pulmonary Disease Take 3 mL (2.5 mg total) by nebulization 4 (four) times a day as needed for wheezing or shortness of breath Active diphenhydrAMIN E (diphenhydrAMI NE) 50 mg/mL injectionIndic ations:IBIG Infuse 1 mL (50 mg total) into a venous catheter every 30 (thirty) days Active Mucinex 600 mg 12 hr tablet Take 1 tablet (600 mg total) by mouth as needed for congestion or cough Active theophylline (THEODUR) 300 mg 12 hr tabletIndicati ons:asthma Take 1 tablet (300 mg total) by mouth 2 (two) times a day Active HYDROcodone-ac etaminophen (NORCO) 5-325 mg per tablet Take 1 tablet by mouth every 6 (six) hours as needed for pain Active Xarelto 20 mg tabletIndicati ons:VTE Prophylaxis Take 1 tablet (20 mg total) by mouth nightly Active omeprazole (PriLOSEC) 40 mg capsuleIndicat ions:Stress Ulcer Prophylaxis Take 1 capsule (40 mg total) by mouth 2 (two) times a day Active fexofenadine (LENA) 180 mg tabletIndicati ons:Allergic Rhinitis Take 1 tablet (180 mg total) by mouth every morning Active ergocalciferol (VITAMIN D) 50,000 unit capsuleIndicat ions:Vitamin D Deficiency Take 1 capsule (50,000 Units total) by mouth once a week Sunday Active Dulera 200-5 mcg/actuation inhalerIndicat ions:Maintenan ce Therapy for Asthma Inhale 2 puffs 2 (two) times a day Active immune globulin (GAMMAGARD S-D) infusionIndica tions:CVID Infuse 1,400 mL (70 g total) into a venous catheter once every four weeks Active EPINEPHrine 0.3 mg/0.3 mL auto-injection syringe Inject 0.3 mL (0.3 mg total) into the muscle as instructed as needed for anaphylaxis Active amLODIPine (NORVASC) 10 mg tabletIndicati ons:hypertensi on Take 1 tablet (10 mg total) by mouth every morning Active furosemide (LASIX) 40 mg tabletIndicati ons:Edema,hype rtension Take 1 tablet (40 mg total) by mouth every morning Active lamoTRIgine (LaMICtal) 200 mg tabletIndicati ons:anxiety Take 1 tablet (200 mg total) by mouth 2 (two) times a day Active ramipriL (ALTACE) 5 mg capsuleIndicat ions:hypertens ion Take 1 capsule (5 mg total) by mouth 2 (two) times a day Active albuterol HFA (PROVENTIL HFA,VENTOLIN HFA,PROAIR HFA) 90 mcg/actuation inhalerIndicat ions:Acute Asthma Attack,Chronic Obstructive Pulmonary Disease Inhale 2 puffs every 6 (six) hours as needed for wheezing Active fluticasone propionate (FLONASE) 50 mcg/actuation nasal sprayIndicatio ns:Allergic Rhinitis Administer 1 spray into each nostril every morning Active acetaminophen 500 mg capsuleIndicat ions:Pain Take 1 capsule (500 mg total) by mouth every 4 (four) hours as needed (pain) Active olopatadine (PATANOL) 0.1 % ophthalmic solution Administer 1 drop into both eyes as needed for allergies Active clobetasoL (TEMOVATE) 0.05 % cream Apply 1 Application topically as needed (RAsh) Active cyanocobalamin (Vitamin B-12) 1,000 mcg/mL injectionIndic ations:Prevent ion of Vitamin B12 Deficiency Inject 1 mL (1,000 mcg total) into the muscle as instructed once a week Sunday Active folic acid (FOLVITE) 1 mg tabletIndicati ons:Folate Deficiency Take 1 tablet (1,000 mcg total) by mouth every morning Active folic acid (FOLVITE) 1 mg tabletIndicati ons:Folate Deficiency Take 1 tablet (1 mg total) by mouth slp before breakfast Active naloxone (NARCAN) 4 mg/actuation spray,non-aero solIndications :Opiate-Induce d Respiratory Depression Administer 1 spray into affected nostril(s) as needed for respiratory depression Active tacrolimus (PROTOPIC) 0.1 % ointment Apply 1 Application topically as needed (rash) Active triamcinolone (KENALOG) 0.1 % cream Apply topically 2 (two) times a day Active Spiriva Respimat 2.5 mcg/actuation inhalerIndicat ions:Bronchosp asm Prevention with COPD,Maintenan ce Therapy for Asthma Inhale 2 puffs every morning Active liothyronine (CYTOMEL) 5 mcg tabletIndicati ons:Hypothyroi dism due to Louise thyroiditis Take 1 tablet (5 mcg total) by mouth 2 (two) times a day 180 tablet 3 2024 Active Additional Information Patient taking differently:5 mcg oral 2 times daily,Indications: hypothyroidism, Informant: Self, Reported on 12/01/2024 famotidine (PEPCID) 40 mg tabletIndicati ons:Heartburn, Heartburn Prevention,gas troesophageal reflux disease Take 1 tablet (40 mg total) by mouth 2 (two) times a day Activ e potassium chloride ER 10 mEq CR tablet Active ondansetron (ZOFRAN) 4 mg tabletIndicati ons:Nausea and Vomiting Take 1 tablet (4 mg total) by mouth every 8 (eight) hours as needed for nausea or vomiting Active diphenhydrAMIN E 25 mg capsuleIndicat ions:Allergic Rhinitis Take 1 tablet/capsule (25 mg total) by mouth every 6 (six) hours as needed for itching Active benzonatate (TESSALON) 100 mg capsuleIndicat ions:Cough Take 1 capsule (100 mg total) by mouth 3 (three) times a day as needed for cough Active levothyroxine (SYNTHROID) 25 mcg tabletIndicati ons:hypothyroi dism Take 1 tablet (25 mcg total) by mouth slp before breakfast Sunday, and Active levothyroxine (SYNTHROID) 50 mcg tablet Take 1 tablet (50 mcg total) by mouth slp before breakfast Sun, Wed, and Sun Active miscellaneous medical supply misc Administer 3 L into affected nostril(s) as needed (SOB) Active clindamycin-be nzoyl peroxide 1-5 % gel with pump APPLY TOPICALLY TO THE AFFECTED AREA TWICE DAILY DIRECTED 2024 Discontinued UNABLE TO FIND Apply topically 2 (two) times a day as needed 2024 Discontinued cetirizine-pse udoephedrine ER (ZyrTEC-D) 5-120 mg per 12 hr tablet Take by mouth 2024 Discontinued BD Luer-Calvin Syringe 3 mL 25 x 5/8 syringe USE TO ADMINISTER DIPHENHYDRAMINE FOR ALLERGIC REACTIONS ASSOCIATED WITH IMMUNE GLOBULIN INFUSIONS FOR IMMUNODEFICIENCY 2024 Discontinued cetirizine (ZyrTEC) 10 mg tablet Take 1 tablet (10 mg total) by mouth daily as needed for allergies or rhinitis 2024 Discontinued cholestyramine (QUESTRAN) 4 gram packet MIX AND DRINK 1 PACKET(4 GRAMS) BY MOUTH DAILY NEEDED FOR DIARRHEA 2024 Discontinued ciclopirox (PENLAC) 8 % solution Apply topically 2 (two) times a day 2024 Discontinued ciprofloxacin- dexAMETHasone (CIPRODEX) otic suspension 2024 Discontinued clobetasoL (TEMOVATE) 0.05 % ointment Apply to affected areas on hands up to twice daily as needed for rash/itch. Avoid on face/armpits/groin. Limit use to 2 weeks per month. 30 days supply. 2024 Discontinued ipratropium (ATROVENT) 0.02 % nebulizer solution Take by nebulization 2024 Discontinued miSOPROStoL (CYTOTEC) 200 mcg tablet TAKE 5 TABLETS BY MOUTH EVERY NIGHT AT BEDTIME FOR 5 NIGHTS 2024 Discontinued mupirocin (BACTROBAN) 2 % ointment Apply topically 3 (three) times a day 2024 Discontinued nystatin-triam cinolone ointment APPLY EXTERNALLY TO VULVA AND BUTTICK AREA TWICE DAILY FOR 2 WEESLKS 2024 Discontinued predniSONE (DELTASONE) 20 mg tablet 024 2024 Discontinued UltiCare 1 mL 25 gauge x 5/8 syringe USE ONCE A WEEK DIRECTED 2024 Discontinued Unithroid 25 mcg tabletIndicati ons:Hypothyroi dism due to Louise thyroiditis 2 tab oral on Sunday, Sunday and Sunday and one tab on Sunday, , Sunday and Sunday 120 tablet 3 024 2024 Discontinued syringe with needle (Tuberculin Syringe) 1 mL 25 gauge x 5/8 syringe USE ONCE A WEEK DIRECTED 2024 Discontinued amoxicillin-cl avulanate (AUGMENTIN) 875-125 mg per tablet 2024 Discontinued insulin syringe-needle U-100 1 mL 31 gauge x 5/16 syringe USE TO INJECT B12 INJECTION WEEKLY 025 2024 Discontinued Active Problems Problem Noted Date Diagnosed Date 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 Assessment & Plan (09/01/2024 11:02 AM ENVIRONMENTAL STUDIES FACULTY MEMBER): Chronic, stable reviewed and discussed patient recent thyroid lab results Recommend to continue current dose of Unithroid and liothyronine Follow-up in 1 year Vitamin B12 deficiency 09/01/2024 Assessment & Plan (09/01/2024 11:05 AM ENVIRONMENTAL STUDIES FACULTY MEMBER): Chronic, Unknown status Patient currently on replacement therapy Recheck levels and further plans based on it Vitamin D deficiency 09/01/2024 Assessment & Plan (09/01/2024 11:05 AM ENVIRONMENTAL STUDIES FACULTY MEMBER): Chronic, Unknown status Patient currently on replacement therapy Check levels today and further plans based on it Recurrent incisional hernia with incarceration 1 Thrombocytosis 02/23/2021 Anxiety 06/17/2014 Overview (02/01/2017): Anxiety High risk drug monitoring status 04/22/2014 Overview (02/01/2017): Chronic anticoagulation Benign hypertension 04/22/2014 Overview (02/01/2017): HTN (hypertension), benign History of pulmonary embolism 04/22/2014 Overview (02/01/2017): Healed or old pulmonary embolism Coagulation disorder (CMS/HCC) 04/22/2014 Overview (02/01/2017): Coagulopathy 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 (02/01/2017): Deficiency, immunity, common variable Chronic infection of sinus 10/07/2012 Immunizations Immunization Administration Dates Next Due Influenza, Unspecified 06/30/2020 Pfizer SARS-CoV-2 Monovalent Vaccination (12+ Yrs) PURPLE 02/14/2021,01/09/2021 Social History Tobacco Use Types Packs/Day Years Used Date Smoking Tobacco: Never Passive Smoke Exposure: Past Smokeless Tobacco: Never Tobacco Cessation:Counseling Given: Not Answered Alcohol Use Standard Drinks/Week Comments Yes 0 (1 standard drink = 0.6 oz pur e alcohol) AUDIT-C Answer Date Recorded Q1: How often do you have a drink containing alc ohol? Monthly or less 12/01/2024 Q2: How many drinks containi ng alcohol do you have on a typical day when you are drinking? 1 or 2 12/01/2024 Q3: How often do you have si x or more drinks on one occasion? Never 12/01/2024 Personal Safety Answer Date Recorded Have you ever been in or are you currently in a harmful physical or emotional relationship or is someone making you feel afraid or unsafe? Denies 12/01/2024 Comments Unknown Sex and Gender Information Value Date Recorded Sex Assigned at Not on file Legal Sex Female 9:35 AM ENVIRONMENTAL STUDIES FACULTY MEMBER Gender Identity Female 03/03/2021 1:42 PM CDT Sexual Orientation Not on file Last Filed Vital Signs Vital Sign Reading Time Taken Comments Blood Pressure 116/85 12/01/2024 10:01 AM ENVIRONMENTAL STUDIES FACULTY MEMBER Pulse 87 12/01/2024 10:00 AM ENVIRONMENTAL STUDIES FACULTY MEMBER Temperature 37.2 C (98.9 F) 07/16/2024 1:20 PM CDT Respiratory Rate 20 09/01/2024 9:54 AM ENVIRONMENTAL STUDIES FACULTY MEMBER Oxygen Saturation 95% 12/01/2024 10:00 AM ENVIRONMENTAL STUDIES FACULTY MEMBER Inhaled Oxygen Concentration - - Weight 106 kg (233 lb 11 oz) 12/01/2024 5:35 PM ENVIRONMENTAL STUDIES FACULTY MEMBER Height 170.2 cm (5' 7 ) 12/01/2024 10:00 AM ENVIRONMENTAL STUDIES FACULTY MEMBER Body Mass Index 36.6 12/01/2024 10:00 AM ENVIRONMENTAL STUDIES FACULTY MEMBER Plan of Treatment Upcoming Encounters Date Type Department Care Team (Latest Contact Info) Description 12/22/2024 7:30 AM ENVIRONMENTAL STUDIES FACULTY MEMBER Hospital Encounter [facility] Operating [address] [place] [address] Davide Catherine MD [address] [place] [address] 12/22/2024 7:30 AM ENVIRONMENTAL STUDIES FACULTY MEMBER Anesthesia Event [facility] Operating [address] [place] [phone] Kai Godinez MD [address] [place] [address] 12/22/2024 7:30 AM ENVIRONMENTAL STUDIES FACULTY MEMBER - 12/22/2024 1:10 PM ENVIRONMENTAL STUDIES FACULTY MEMBER Surgery [facility] Operating [address] [place] [phone] Davide Catherine MD [address] [place] [address] REPAIR INCISIONAL HERNIA Scheduled Procedures Name Priority Associated Diagnoses Date/Ti me REPAIR INCISIONAL HERNIA Recurrent incisional hernia with incarceration 12/22/2024 7:30 AM ENVIRONMENTAL STUDIES FACULTY MEMBER RECONSTRUCTION ABDOMINAL WALL Recurrent incisional hernia with incarceration 12/22/2024 7:30 AM ENVIRONMENTAL STUDIES FACULTY MEMBER Procedures Procedure Name Priority Date/Time Associated Diagnosis Comments MAGNESIUM Routine 12/01/2024 11:45 AM ENVIRONMENTAL STUDIES FACULTY MEMBER Preoperative testing TYPE AND SCREEN Routine 12/01/2024 11:45 AM ENVIRONMENTAL STUDIES FACULTY MEMBER Preoperative testing from Last 3 Months Results * Type and screen (12/01/2024 11:45 AM ENVIRONMENTAL STUDIES FACULTY MEMBER) ABO Rh B Positive Maria, indirect Negative CERNER BJ Blood 12/01/2024 11:4 5 AM ENVIRONMENTAL STUDIES FACULTY MEMBER 12/01/2024 12:29 PM ENVIRONMENTAL STUDIES FACULTY MEMBER Narrative [facility] - 12/01/2024 1:58 PM ENVIRONMENTAL STUDIES FACULTY MEMBER Has the patient had Daratumumab or Isatuximab in the past 6 months?->Unknown Kai Godinez MD LAB BLOOD BANK TEST ORDERABLES Final Result [facility] [place] [address] * Magnesium (12/01/2024 11:45 AM ENVIRONMENTAL STUDIES FACULTY MEMBER) Magnesium 2.1 1.4 - 2.5 mg/dL Blood 12/01/2024 11:4 5 AM ENVIRONMENTAL STUDIES FACULTY MEMBER 12/01/2024 12:24 PM ENVIRONMENTAL STUDIES FACULTY MEMBER Kai Godinez MD LAB BLOOD ORDERABLE S Final Result Performing Organization Address [facility] Co de Phone Number [facility] [place] [address] from Last 3 Months Insurance MEDICARE [facility] MEDICARE FOR LIFE MEDICARE Care Teams [employer] Person Relationship Specialty Start Date End Date Theodore Zamora DO [address] [place] [address] [phone] PCP - General Family Medicine 03/20/24
--- OUTSIDE RECORDS SUMMARY | 2024-12-14 13:19 | XMS_ITS | Clinical Summary ---
Author Organization [facility] Address [address] [place] [address] Care Team Providers Care Wood Carving Lathe Operator Name Role Phone Theodore Zamora DO Primary Care Provide r Allergies Active Allergy Reactions Criticality Noted Date Comments Adhesive Rash,Other (See comments) Medium 03/27/2019 Other reaction(s): rash Adhesive Tape-Silicones Rash Medium Aspirin Anaphylaxis,Hives,U nknown High 11/12/2003 Tongue swelling, SOB, went to ER... Given med's no artificial airway needed epi pen steroids and benadryl Other reaction(s): anaphylaxis ANAPHYLAXIS (PER 3066 03-18-03) Aztreonam Fever,Other (See comments),Rash High 09/20/2013 Severe [...] meds, no artifical airway needed per 3066 (01-01-03) Iohexol Shortness of breath High 08/22/2012 Latex [...] needed for wheezing or shortness of breath 015 Active diphenhydrAMIN E (diphenhydrAMI NE) 50 mg/mL injectionIndic ations:IBIG Infuse 1 mL (50 mg total) into a venous catheter every 30 (thirty) days Active Mucinex 600 mg 12 hr tablet Take 1 tablet (600 mg total) by mouth as needed for congestion or cough 021 Active theophylline (THEODUR) 300 mg 12 hr [...] 1 tablet (1 mg total) by mouth piping engineer before breakfast Active naloxone (NARCAN) 4 mg/actuation [...] (two) times a day 180 tablet 3 024 2024 Active Additional Information Patient taking differently:5 mcg oral 2 times daily,Indications: hypothyroidism, Informant: Self, Reported on 12/01/2024 famotidine (PEPCID) 40 mg tabletIndicati ons:Heartburn, Heartburn Prevention,gas troesophageal reflux disease Take 1 tablet (40 mg total) by mouth 2 (two) times a day Activ e potassium chloride ER 10 mEq CR tablet 024 Active ondansetron (ZOFRAN) 4 mg tabletIndicati ons:Nausea [...] 1 tablet (25 mcg total) by mouth piping engineer before breakfast Sunday, and Active levothyroxine (SYNTHROID) 50 mcg tablet Take 1 tablet (50 mcg total) by mouth piping engineer before breakfast Mon, Wed, and Sun Active miscellaneous medical supply misc Administer 3 L into affected nostril(s) as needed (SOB) Active clindamycin-be nzoyl peroxide 1-5 % gel with pump APPLY TOPICALLY TO THE AFFECTED AREA TWICE DAILY DIRECTED 021 2024 Discontinued UNABLE TO FIND Apply topically [...] 2024 Discontinued predniSONE (DELTASONE) 20 mg tablet 2024 Discontinued UltiCare 1 mL 25 gauge x 5/8 syringe USE ONCE A WEEK DIRECTED 2024 Discontinued Unithroid 25 mcg tabletIndicati ons:Hypothyroi dism due to Louise thyroiditis 2 tab oral on Sunday, Sunday and Sunday and one tab on Sunday, , Sunday and Sunday 120 tablet 3 2024 Discontinued syringe with needle (Tuberculin Syringe) 1 mL 25 gauge x 5/8 syringe USE ONCE A WEEK DIRECTED 024 2024 Discontinued amoxicillin-cl avulanate (AUGMENTIN) 875-125 mg per tablet 2024 Discontinued insulin syringe-needle U-100 1 mL 31 gauge x 5/16 syringe USE TO INJECT B12 INJECTION WEEKLY 025 2024 Discontinued Active Problems Problem Noted Date Diagnosed Date 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 Assessment & Plan (09/01/2024 11:02 AM MEDICAL RECORDS LIBRARY PROFESSOR): Chronic, stable reviewed and discussed patient recent thyroid lab results Recommend to continue current dose of Unithroid and liothyronine Follow-up in 1 year Vitamin B12 deficiency 09/01/2024 Assessment & Plan (09/01/2024 11:05 AM MEDICAL RECORDS LIBRARY PROFESSOR): Chronic, Unknown status Patient currently on replacement therapy Recheck levels and further plans based on it Vitamin D deficiency 09/01/2024 Assessment & Plan (09/01/2024 11:05 AM MEDICAL RECORDS LIBRARY PROFESSOR): Chronic, Unknown status Patient currently on replacement [...] common variable Chronic infection of sinus 10/07/2012 Encounters Date Type Department Care Team Description 12/01/2024 10:00 AM MEDICAL RECORDS LIBRARY PROFESSOR Pre-Admission Testing [facility] for Preoperative Assessment and [facility] [address] [place] [address] Preoperative testing (Primary Dx) 11/28/2024 Telephone [facility] ([facility] - [facility] Minimally Invasive Surgery [address] [facility] [address] Floor, [place] [address] Davide Catherine MD Medical Question/Miscellaneo us from Last 3 Months Immunizations Immunization Administration Dates Next Due Influenza, Unspecified 06/30/2020 Pfizer SARS-CoV-2 Monovalent Vaccination (12+ Yrs) PURPLE 02/14/2021,01/09/2021 Surgical History Surgery Date Site/Laterality Comments APPENDECTOMY Appendectomy COLON SURGERY 03/29/2020 - 04/27/2020 ABDOMINAL SURGERY septic infection HERNIA REPAIR 12/27/2020 - 01/26/2021 COLONOSCOPY 09/28/2020 - 10/28/2020 SINUS SURGERY 05/29/2020 - 06/28/2020 PORT PLACEMENT CHEST >5 YEARS 09/09/2013 N/A PORT PLACEMENT CHEST >5 YEARS 09/09/2013 N/A IR PICC LINE PLACEMENT > 5 YEARS 02/15/2023 N/A HERNIA MESH REMOVAL CHOLECYSTECTOMY Medical History Medical History Date Comments Hypertension Hypertension Anxiety disorder Anxiety Arthritis Asthma Emphysema lung (HCC) Hypercholesteremia Thyroid disease Pneumonia Bronchitis Mononucleosis PONV (postoperative nausea and vomiting) Family History Medical History Relation Name Comments Colon cancer Father Diabetes Father Diabetes mellit us; Hypertension Father Hypertension; Prostate cancer Father Hypertension Mother Hypertension; Anesthesia problems Neg Hx Relation Name Status Comments Brother Alive Father (Age 73) Mother Alive Social History Tobacco Use Types Packs/Day Years [...] on file Legal Sex Female 9:35 AM MEDICAL RECORDS LIBRARY PROFESSOR Gender Identity Female 03/03/2021 1:42 PM CDT Sexual Orientation Not on file Obstetrics History Last Filed Vital Signs Vital Sign Reading Time Taken Comments Blood Pressure 116/85 12/01/2024 10:01 AM MEDICAL RECORDS LIBRARY PROFESSOR Pulse 87 12/01/2024 10:00 AM MEDICAL RECORDS LIBRARY PROFESSOR Temperature 37.2 C (98.9 F) 07/16/2024 1:20 PM CDT Respiratory Rate 20 09/01/2024 9:54 AM MEDICAL RECORDS LIBRARY PROFESSOR Oxygen Saturation 95% 12/01/2024 10:00 AM MEDICAL RECORDS LIBRARY PROFESSOR Inhaled Oxygen Concentration - - Weight 106 kg (233 lb 11 oz) 12/01/2024 5:35 PM MEDICAL RECORDS LIBRARY PROFESSOR Height 170.2 cm (5' 7 ) 12/01/2024 10:00 AM MEDICAL RECORDS LIBRARY PROFESSOR Body Mass Index 36.6 12/01/2024 10:00 AM MEDICAL RECORDS LIBRARY PROFESSOR Plan of Treatment Upcoming Encounters Date Type Department Care Team (Latest Contact Info) Description 12/22/2024 7:30 AM MEDICAL RECORDS LIBRARY PROFESSOR Hospital Encounter [facility] Operating [address] [place] [phone] Davide Catherine MD [address] [place] [address] 12/22/2024 7:30 AM MEDICAL RECORDS LIBRARY PROFESSOR Anesthesia Event [facility] Operating [address] [place] [id number] Kai Godinez MD [address] [place] [address] 12/22/2024 7:30 AM MEDICAL RECORDS LIBRARY PROFESSOR - 12/22/2024 1:10 PM MEDICAL RECORDS LIBRARY PROFESSOR Surgery [facility] Operating [address] [place] [phone] Davide Catherine MD [address] [place] [address] REPAIR INCISIONAL HERNIA Scheduled Procedures Name Priority Associated Diagnoses Date/Ti me REPAIR INCISIONAL HERNIA Recurrent incisional hernia with incarceration 12/22/2024 7:30 AM MEDICAL RECORDS LIBRARY PROFESSOR RECONSTRUCTION ABDOMINAL WALL Recurrent incisional hernia with incarceration 12/22/2024 7:30 AM MEDICAL RECORDS LIBRARY PROFESSOR Health Maintenance Due Date Last Done Comments Breast Cancer Screening-Mammogram 1969 Cervical Cancer Screening 1969 Colon Cancer Screening-Colonoscopy 1969 Depression Screening 1969 Hepatitis C Screening 1969 Hepatitis B Screening 1987 Regular Well Visit/Exam 18-64 1987 Covid-19 Vaccine (4 - 2023-2 5 season) 2024 06/21/2021, 02/14/2021, 01/09/2021, Additional history exists DTaP/Tdap/Td Vaccine (3 - Td or Tdap) 06/19/2032 06/19/2022, 10/14/2014 Pneumococcal vaccine <65 (4 of 4 - PPSV23 or PCV20) 2034 07/16/2018, 10/29/2015, 10/29/2015 Zoster Vaccine Completed 12/07/2021, 08/24/2021 Influenza Vaccine Completed 08/04/2024, , 07/30/2022, Additional history exists Procedures Procedure Name Priority Date/Time Associated Diagnosis Comments MAGNESIUM Routine 12/01/2024 11:45 AM MEDICAL RECORDS LIBRARY PROFESSOR Preoperative testing TYPE AND SCREEN Routine 12/01/2024 11:45 AM MEDICAL RECORDS LIBRARY PROFESSOR Preoperative testing from Last 3 Months Results * Type and screen (12/01/2024 11:45 AM MEDICAL RECORDS LIBRARY PROFESSOR) ABO Rh B Positive Maria, indirect Negative [facility] Blood 12/01/2024 11:4 5 AM MEDICAL RECORDS LIBRARY PROFESSOR 12/01/2024 12:29 PM MEDICAL RECORDS LIBRARY PROFESSOR Narrative [facility] - 12/01/2024 1:58 PM MEDICAL RECORDS LIBRARY PROFESSOR Has the patient had Daratumumab or Isatuximab in the past 6 months?->Unknown Kai Godinez MD LAB BLOOD BANK TEST ORDERABLES Final Result [facility] [place] [address] * Magnesium (12/01/2024 11:45 AM MEDICAL RECORDS LIBRARY PROFESSOR) Magnesium 2.1 1.4 - 2.5 mg/dL Blood 12/01/2024 11:4 5 AM MEDICAL RECORDS LIBRARY PROFESSOR 12/01/2024 12:24 PM MEDICAL RECORDS LIBRARY PROFESSOR Kai Godinez MD LAB BLOOD ORDERABLE S Final Result Performing Organization Address [facility] Co de Phone Number [facility] [place] [address] from Last 3 Months Insurance MEDICARE [facility] MEDICARE FOR [facility] MEDICARE Care Teams Wood Carving Lathe Operator Relationship Specialty Start Date End Date Theodore Zamora DO [facility] [place] [address] PCP - General Family Medicine 03/20/24
--- OUTSIDE RECORDS SUMMARY | 2024-12-14 13:19 | XMS_ITS | Encounter Summary ---
Author Organization [facility] Address [address] [place] [address] Care Team Providers Care Creative Services Director Name Role Phone Theodore Zamora DO Primary Care Provider + Nena Holland RN Unavailable [phone] Bonifacio Easton MD Unavailable Encounter Details Date Type Department Care Team (Late st Contact Info) Description 03/02/2023 MyChart Message Enc [facility] Family & Internal Medicine [facility] [address] [place] [address] Theodore Zamora DO [address] [place] [address] [facility]. Social History Tobacco Use Types Packs/Day Years Used Date Smoking Tobacco: Never Passive Smoke Exposure: Past Smokeless Tobacco: Never Alcohol Use Standard Drinks/Week Comments Yes 0 (1 standard drink = 0.6 oz pur e alcohol) occ PHQ-2 Answer Date Recorded Patient Health Questionnaire-2 Score 0 11/23/2022 Comments No Sex and Gender Information Value Date Recorded Sex Assigned at Female 11/26/2024 1:20 PM LINE UP WORKER Legal Sex Female 5:37 PM CDT Gender Identity Female 11/26/2024 1:20 PM LINE UP WORKER Sexual Orientation Not on file Occupation Industry Job Start Date Job End Date unemployed Not on file Not on file Not on file COVID-19 Exposure Response Date Recorded In the last 10 days, have yo u been in contact with someone who was confirmed or suspected to have Coronavirus/COVID-19? No / Unsure 03/01/2023 8:29 AM CDT documented as of this encounter Progress Notes * Theodore Zamora DO - 03/02/2023 9:28 AM CDT Thank you for the update. [place], please follow this for TCM purposes. documented in this encounter Plan of Treatment Upcoming Encounters Date Type Department Care Team (Late st Contact Info) Description 12/16/2024 11:30 AM LINE UP WORKER Appointment [facility] [address] [place] [address] Joycelyn Velazquez MD 12/16/2024 1:00 PM LINE UP WORKER Appointment [facility] [address] [place] [address] Patel Garay MD [address] [address] 02/24/2025 1:00 PM CDT Office Visit [facility] Family & Internal Medicine [address] [phone] Theodore Zamora DO [address] [place] [address] documented as of this encounter Goals Goal Patient Goal Type Associated Problems Recent Progress Patient-Stated? Author Consistently take medications as Prescribed General On track(2024 3:27 PM LINE UP WORKER) No Nena Holland, RN Establish Plan for Symptom Monitoring- COPD/Asthma General On track(2024 3:27 PM LINE UP WORKER) Nena Mohan, RN Note: COPD/Asthma: Patient will recognize symptoms of COPD/Asthma exacerbation and report to the physician. If severe, patient will seek emergent treatment at [facility] or ER. 01/24/23: Patient seen by (Director Of Emergency Nursing) on 01/10/23 and will f/u on 03/28/23. Reduce Blood Pressure Lifestyle On track(2024 3:27 PM LINE UP WORKER) Nena Mohan RN Note: Patient to monitor blood pressure weekly and report the onset of any changes. Patient will take medications as directed. documented as of this encounter Visit Diagnoses Not on filedocumented in this encounter Additional Health Concerns Assessment Noted Time PHQ-9 Depression Total Score: 0 04/21/20 8:42 AM CDT documented as of this encounter Care Teams Creative Services Director Relationship Specialty Start Date End Date Theodore Zamora DO [address] [place] [address] PCP - General FAMILY PRACTICE 03/15/22 Nena Holland RN [address] [place] [address] Leaf Blender (Ambulatory) REGISTERED NURSE 03/17/22 Bonifacio Easton MD [address] [place] [id number] PULMONARY DISEASE 08/29/22 documented as of this encounter
--- OUTSIDE RECORDS SUMMARY | 2024-12-14 13:19 | XMS_ITS | Continuity of Care Document ---
Author Name [facility] Organization [facility] Care Team Providers Care Crown Buffer Name Role Phone [facility] Unavailable Unavailable Problems Combined list of problems from Department of Defense and Veterans Affairs facilities. It does not include entries that were removed or entered in error. 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 Medication Details Route Status Patient Instructions Prescription Expires Prescription Number Last Dispense Date Ordering Provider Order Date Order Qty Source ALLERGY RELIEF (fexofenadi ne HCl), 180 MG, TABLET, ORAL, CAMBER CONSUMER, 100 ea. BOTTLE Cancele d [id number] : 2023 0 Pharmac y Data Transac tion Service Facilit y AMLODIPINE BESYLATE (amlodipine besylate), 10 MG, TABLET, ORAL, LUPIN PHARMACEU, 1000 ea. BOTTLE Cancele d [id number] : 2023 0 Pharmac y Data Transac tion Service Facilit y AMLODIPINE BESYLATE (amlodipine besylate), 10 MG, TABLET, ORAL, LUPIN PHARMACEU, 1000 ea. BOTTLE Active [id number] 4 2023 90 Pharmac y Data Transac tion Service Facilit y Benzonatate ([employer]) 100 CAPSULE in 1 BOTTLE Active [id number] 11/14/19 2 4 2023 30 Pharmac y Data Transac tion Service Facilit y benzonatate 100 mg oral capsule TAKE ONE CAPSULE THREE TIMES DAILY DIRECTED , # 270 EA, 3 total refill(s ), Acute Complet ed 01/09/2024 270.0 Ambulat ory Pharmac y CEPHALEXIN (CEPHALEXIN MONOHYDRATE ), 500MG, CAPSULE, ORAL, AUROBINDO PHARM, 500 ea. BOTTLE Active [id number] 4 2023 14 Pharmac y Data Transac tion Service Facilit y CICLOPIROX (CICLOPIROX ), 8%, SOLUTION, TOPICAL, PERRIGO CO., 6.6 ml BOTTLE Cancele d [id number] : 2023 0 Pharmac y Data Transac tion Service Facilit y CICLOPIROX (CICLOPIROX ), 8%, SOLUTION, TOPICAL, PERRIGO CO., 6.6 ml BOTTLE Cancele d [id number] : 2023 0 Pharmac y Data Transac tion Service Facilit y CICLOPIROX (CICLOPIROX ), 8%, SOLUTION, TOPICAL, PERRIGO CO., 6.6 ml BOTTLE Active [id number] 2023 6.6 Pharmac y Data Transac tion Service Facilit y CIPROFLOXAC IN-DEXAMETH ASONE (ciprofloxa jose c HCl/dexamet hasone), 0.3 %-0.1%, DROPS SUSP, OTIC (EAR), 'S LAB, 7.5 ml DROP BTL Active [id number] 4 2023 7.5 Pharmac y Data Transac tion Service Facilit y CLOBETASOL PROPIONATE (clobetasol propionate) , 0.05 %, CREAM (G), TOPICAL, ENCUBE ETHICALS, 60 g TUBE Cancele d [id number] : 2023 0 Pharmac y Data Transac tion Service Facilit y CLOBETASOL PROPIONATE (clobetasol propionate) , 0.05 %, OINT. (G), TOPICAL, ENCUBE ETHICALS, 30 g TUBE Active [id number] 4 2023 60 Pharmac y Data Transac tion Service Facilit y CYANOCOBALA MIN INJECTION (cyanocobal aguirre (vitamin B-12)), 1000MCG/ML, VIAL, INJECTION, VITRUVIAS THERA, 1 ml VIAL Cancele d [id number] : 2023 0 Pharmac y Data Transac tion Service Facilit y DOXYCYCLINE HYCLATE (doxycyclin e hyclate), 100 MG, CAPSULE, ORAL, [employer], 500 ea. BOTTLE Active [id number] 2023 28 Pharmac y Data Transac tion Service Facilit y DULERA (mometasone furoate/for moterol fumarate), 200-5 MCG, HFA AER AD, INHALATION, [employer], 13 g AER W/ADAP Active [id number] 4 2023 39 Pharmac y Data Transac tion Service Facilit y DULERA (mometasone furoate/for moterol fumarate), 200-5 MCG, HFA AER AD, INHALATION, [employer] LLC, 13 g AER W/ADAP Active [id number] 4 2023 39 Pharmac y Data Transac tion Service Facilit y FEXOFENADIN E HCL (fexofenadi ne HCl), 180 MG, TABLET, ORAL, 'S LAB, 30 ea. BOTTLE Active [id number] 2023 90 Pharmac y Data Transac tion Service Facilit y FEXOFENADIN E HCL (fexofenadi ne HCl), 180 MG, TABLET, ORAL, 'S LAB, 30 ea. BOTTLE Active [id number] 4 2023 90 Pharmac y Data Transac tion Service Facilit y FLOVENT HFA (FLUTICASON E PROPIONATE) , 220 MCG, AER W/ADAP, INHALATION, GLAXOSMITHK LINE, 12 g AER W/ADAP Cancele d [id number] : 2023 0 Pharmac y Data Transac tion Service Facilit y FLOVENT HFA (FLUTICASON E PROPIONATE) , 220 MCG, AER W/ADAP, INHALATION, GLAXOSMITHK LINE, 12 g AER W/ADAP Active [id number] 4 2023 12 Pharmac y Data Transac tion Service Facilit y FOLIC ACID (folic acid), 1 MG, TABLET, ORAL, [employer], 90 ea. BOTTLE Cancele d [id number] : 2023 0 Pharmac y Data Transac tion Service Facilit y FOLIC ACID (folic acid), 1 MG, TABLET, ORAL, [employer] RX LL, 90 ea. BOTTLE Cancele d [id number] : 2023 0 Pharmac y Data Transac tion Service Facilit y guaiFENesin 600 mg oral tablet, extended release TAKE ONE TABLET BY MOUTH EVERY TWELVE HOURS NEEDED FOR COUGH, # 90 EA, 3 total refill(s ), Acute Complet ed 01/09/2024 90.0 Ambulat ory Pharmac y HYDROCODONE -ACETAMINOP HEN (HYDROCODON E/ACETAMINO PHEN), 5MG-325MG, TABLET, ORAL, MALLINCKROD T PH, 500 ea. BOTTLE Active [id number] 4 2023 60 Pharmac y Data Transac tion Service Facilit y HYDROCODONE -ACETAMINOP HEN (HYDROCODON E/ACETAMINO PHEN), 5MG-325MG, TABLET, ORAL, MALLINCKROD T PH, 500 ea. BOTTLE Active [id number] 2023 60 Pharmac y Data Transac tion Service Facilit y HYDROCODONE -ACETAMINOP HEN (HYDROCODON E/ACETAMINO PHEN), 5MG-325MG, TABLET, ORAL, MALLINCKROD T PH, 500 ea. BOTTLE Active [id number] 4 2023 60 Pharmac y Data Transac tion Service Facilit y HYDROCODONE -ACETAMINOP HEN (HYDROCODON E/ACETAMINO PHEN), 5MG-325MG, TABLET, ORAL, MALLINCKROD T PH, 500 ea. BOTTLE Active [id number] 4 2023 60 Pharmac y Data Transac tion Service Facilit y HYDROCODONE -ACETAMINOP HEN (HYDROCODON E/ACETAMINO PHEN), 5MG-325MG, TABLET, ORAL, MALLINCKROD T PH, 500 ea. BOTTLE Active [id number] 2023 60 Pharmac y Data Transac tion Service Facilit y HYDROCODONE -ACETAMINOP HEN (HYDROCODON E/ACETAMINO PHEN), 5MG-325MG, TABLET, ORAL, MALLINCKROD T PH, 500 ea. BOTTLE Active [id number] 2023 60 Pharmac y Data Transac tion Service Facilit y HYDROCODONE -ACETAMINOP HEN (HYDROCODON E/ACETAMINO PHEN), 5MG-325MG, TABLET, ORAL, MALLINCKROD T PH, 500 ea. BOTTLE Active [id number] 2023 30 Pharmac y Data Transac tion Service Facilit y HYDROCODONE -ACETAMINOP HEN (HYDROCODON E/ACETAMINO PHEN), 5MG-325MG, TABLET, ORAL, MALLINCKROD T PH, 500 ea. BOTTLE Active [id number] 2023 30 Pharmac y Data Transac tion Service Facilit y HYDROCODONE -ACETAMINOP HEN (HYDROCODON E/ACETAMINO PHEN), 5MG-325MG, TABLET, ORAL, MALLINCKROD T PH, 500 ea. BOTTLE Active [id number] 2023 30 Pharmac y Data Transac tion Service Facilit y HYDROCODONE -ACETAMINOP HEN (HYDROCODON E/ACETAMINO PHEN), 5MG-325MG, TABLET, ORAL, MALLINCKROD T PH, 500 ea. BOTTLE Active [id number] 4 2023 30 Pharmac y Data Transac tion Service Facilit y HYDROCODONE -ACETAMINOP HEN (HYDROCODON E/ACETAMINO PHEN), 5MG-325MG, TABLET, ORAL, MALLINCKROD T PH, 500 ea. BOTTLE Active [id number] 3 2022 30 Pharmac y Data Transac tion Service Facilit y HYDROCODONE -ACETAMINOP HEN (HYDROCODON E/ACETAMINO PHEN), 5MG-325MG, TABLET, ORAL, MALLINCKROD T PH, 500 ea. BOTTLE Active [id number] 2022 30 Pharmac y Data Transac tion Service Facilit y Lamotrigine (Lamotrigin e), 200mg, Tablet, Oral, [employer] Pharm, 60 Ea. Bottle Active [id number] 4 2023 180 Pharmac y Data Transac tion Service Facilit y Lamotrigine (Lamotrigin e), 200mg, Tablet, Oral, [employer] [facility] [place], 60 Ea. Bottle Active [id number] 4 2023 180 Pharmac y Data Transac tion Service Facilit y LIOTHYRONIN E SODIUM (liothyroni ne sodium), 5 MCG, TABLET, ORAL, SIGMAPHARM LABO, 90 ea. BOTTLE Active [id number] 4 2023 180 Pharmac y Data Transac tion Service Facilit y MUPIROCIN (MUPIROCIN) , 2%, OINT.(GM), TOPICAL, PERRIGO CO., 22 g TUBE Active [id number] 2023 22 Pharmac y Data Transac tion Service Facilit y NALOXONE HCL (naloxone HCl), 4 MG, SPRAY, NASAL, TEVA USA, 2 ea. BLIST PACK Active [id number] 4 2023 2 Pharmac y Data Transac tion Service Facilit y OLOPATADINE HCL (olopatadin e HCl), 0.1 %, DROPS, OPHTHALMIC, SOMERSET THERAP, 5 ml DROP BTL Cancele d [id number] : 2023 0 Pharmac y Data Transac tion Service Facilit y OLOPATADINE HCL (olopatadin e HCl), 0.1 %, DROPS, OPHTHALMIC, SOMERSET THERAP, 5 ml DROP BTL Cancele d [id number] : 2023 0 Pharmac y Data Transac tion Service Facilit y OMEPRAZOLE (OMEPRAZOLE ), 40 MG, CAPSULE DR, ORAL, ZYDUS PHARMACEU, 1000 ea. BOTTLE Active [id number] 4 2023 180 Pharmac y Data Transac tion Service Facilit y OMEPRAZOLE (OMEPRAZOLE ), 40 MG, CAPSULE DR, ORAL, ZYDUS PHARMACEU, 1000 ea. BOTTLE Active [id number] 2023 180 Pharmac y Data Transac tion Service Facilit y ONDANSETRON HCL (ONDANSETRO N HCL), 4MG, TABLET, ORAL, AUROBINDO PHARM, 30 ea. BOTTLE Active [id number] 4 2023 30 Pharmac y Data Transac tion Service Facilit y OXYCODONE-A CETAMINOPHE N (OXYCODONE HCL/ACETAMI NOPHEN), 7.5-325MG, TABLET, ORAL, MALLINKRT PHARM, 100 ea. BOTTLE Active [id number] 4 2023 5 Pharmac y Data Transac tion Service Facilit y PREDNISONE (prednisone ), 20 MG, TABLET, ORAL, NOVITIUM/AN I PH, 500 ea. BOTTLE Active [id number] 4 2023 10 Pharmac y Data Transac tion Service Facilit y RIVAROXABAN 20 MG ORAL TAB Take or use exactly as directed .Obtain advice for OTCs.Donna ck with your doctor before becoming .Take with food. 10/30/2024 [id number] 2023 90 [employer] Dre [facility] ([facility]) Spiriva Respimat 2.5 mcg inhaler (4g) See Instruct ions, Inhale, # 4 g, 11 total refill(s ), Hard Stop Inhala tion (breat he in) Complet ed 04/17/2024 4.0 Ambulat ory Pharmac y Spiriva Respimat 2.5 mcg inhaler (4g) See Instruct ions, # 4 g, 11 total refill(s ), Hard Stop Ordered 04/30/2025 4.0 Ambul at ory Pharmac y TACROLIMUS (tacrolimus ), 0.1 %, OINT. (G), TOPICAL, Snappy shuttle PHARMA, 30 g TUBE Active [id number] 2023 30 Pharmac y Data Transac tion Service Facilit y THEOPHYLLIN E ER (theophylli ne anhydrous), 300 MG, TAB ER 12H, ORAL, TEVA PHARM, 100 ea. BOTTLE Cancele d [id number] : 2023 0 Pharmac y Data Transac tion Service Facilit y THEOPHYLLIN E ER (theophylli ne anhydrous), 300 MG, TAB ER 12H, ORAL, TEVA PHARM, 100 ea. BOTTLE Active [id number] 2023 180 Pharmac y Data Transac tion Service Facilit y THEOPHYLLIN E ER (theophylli ne anhydrous), 300 MG, TAB ER 12H, ORAL, TEVA PHARM, 100 ea. BOTTLE Active [id number] 3 2022 180 Pharmac y Data Transac tion Service Facilit y THEOPHYLLIN E ER (theophylli ne anhydrous), 300 MG, TAB ER 12H, ORAL, TEVA PHARM, 100 ea. BOTTLE Active [id number] 2023 180 Pharmac y Data Transac tion Service Facilit y tiotropium 18 mcg inhalation capsule INHALE CONTENTS OF ONE CAPSULE VIA HANDIHAL ER ONCE DAILY DIRECTED , # 30 EA, 4 total refill(s ), Acute Complet ed 08/14/2023 30.0 Ambulat ory Pharmac y UNITHROID (LEVOTHYROX INE SODIUM), 25 MCG, TABLET, ORAL, LUCILA LABORATO, 100 ea. BOTTLE Active [id number] 4 2023 120 Pharmac y Data Transac tion Service Facilit y UNITHROID (LEVOTHYROX INE SODIUM), 25 MCG, TABLET, ORAL, LUCILA LABORATO, 100 ea. BOTTLE Active [id number] 2023 120 Pharmac y Data Transac tion Service Facilit y VITAMIN D2 (ergocalcif talisha (vitamin D2)), 1250 MCG, CAPSULE, ORAL, EP[employer] LLC, 100 ea. BOTTLE Active [id number] 4 2023 5 Pharmac y Data Transac tion Service Facilit y VITAMIN D2 (ergocalcif talisha (vitamin D2)), 1250 MCG, CAPSULE, ORAL, [employer], 100 ea. BOTTLE Active [id number] 2023 5 Pharmac y Data Transac tion Service Facilit y VITAMIN D2 (ergocalcif talisha (vitamin D2)), 1250 MCG, CAPSULE, ORAL, [employer], 100 ea. BOTTLE Active [id number] 4 2023 5 Pharmac y Data Transac tion Service Facilit y VITAMIN D2 (ergocalcif talisha (vitamin D2)), 1250 MCG, CAPSULE, ORAL, [employer], 100 ea. BOTTLE Active [id number] 2023 5 Pharmac y Data Transac tion Service Facilit y VITAMIN D2 (ergocalcif talisha (vitamin D2)), 1250 MCG, CAPSULE, ORAL, [employer], 100 ea. BOTTLE Active [id number] 2023 5 Pharmac y Data Transac tion Service Facilit y VITAMIN D2 (ergocalcif talisha (vitamin D2)), 1250 MCG, CAPSULE, ORAL, [employer], 100 ea. BOTTLE Active [id number] 2023 5 Pharmac y Data Transac tion Service Facilit y XARELTO (RIVAROXABA N), 20 MG, TABLET, ORAL, [employer] PHARM., 30 ea. BOTTLE Active [id number] 4 2023 30 Pharmac y Data Transac tion Service Facilit y Xarelto 20 mg tablet See Instruct ions, # 90 EA, 1 total refill(s ), Hard Stop Ordered 05/21/2025 90.0 Ambul at ory Pharmac y Xarelto 20 mg tablet See Instruct ions, # 90 EA, 1 total refill(s ), Hard Stop Complet ed 04/02/2024 90.0 Ambulat ory Pharmac y Xarelto 20 mg tablet See Instruct ions, # 90 EA, 1 total refill(s ), Hard Stop Discont inued 04/14/2024 90.0 Ambulat ory Pharmac y Allergies, Adverse Reactions, Alerts Combined list of allergies from Department of Defense and Veterans Affairs facilities. It does not include entries that were removed or entered in error. Substance Category Reaction Severity Reaction type Status Date Reported Comments Source ASPIRIN (ASPIRIN) Drug allergy (disorder ) Unknown active [address] [place] [address] Dre HAHN ([facility]) aspirin Drug allergy Anaphylaxis Severe Active 4 ANAPHYLAXIS (PER 3066 5--03) Ambulator y Pharmacy IBUPROFEN (IBUPROFEN ) Drug allergy (disorder ) Unknown active [address] [place] [address] Dre HAHN ([facility]) ibuprofen Drug allergy Unknown Unknown Active 4 per 3066 (3-6-03) Ambulator y Pharmacy NSAID Drug allergy (disorder ) Unknown active [address] [place] [address] Dre [facility]HN [facility] NSAIDs Drug allergy Anaphylaxis Severe Active [facility] Ambulato r y Pharmacy OTHER Drug allergy (disorder ) Unknown active 4 [facility] Dre HAHN ([facility]) Immunizations Combined list of available immunizations from the Department of Defense and Veterans Affairs facilities. Immunization Series Date Given Administered By Site Reaction Lot Number CVX Code Drug Engineer Byproduct Status Comments Source Tdap 2021 ALUL, () Not Given Tdap DoD COVID-19, mRNA, LNP-S, PF, 30 mcg/0.3 mL dose, abdirahman-sucrose 2021 TURABELIDZE,G EORGE Hachimenroppi [place] (PFR) Not Given COVID-19, mRNA, LNP-S, PF, 30 mcg/0.3 mL dose, abdirahman-sucr ose DoD zoster recombinant 2021 JOÃO MCCRACKEN () Not Given zoster recombina nt DoD zoster recombinant 2020 BALARAM, () Not Given zoster recombina nt DoD Influenza, injectable, MDCK, preservative free, quadrivalent 2020 MACIEL, () Not Given Influenza , injectabl e, MDCK, preservat mario free, quadrival ent DoD COVID-19, mRNA, LNP-S, PF, 30 mcg/0.3 mL dose 2020 MAGNO, Hachimenro[employer] [place] (PFR) Not Given COVID-19, mRNA, LNP-S, PF, 30 mcg/0.3 mL dose DoD COVID-19, mRNA, LNP-S, PF, 100 mcg or 50 mcg dose [address] [employer] (MOD) Not Given COVID-19, mRNA, LNP-S, PF, 100 mcg or 50 mcg dose DoD Influenza, injectable, MDCK, preservative free, quadrivalent 2019 ALUL, () Not Given Influenza , injectabl e, MDCK, preservat mario free, quadrival ent DoD influenza virus vaccine, live 2009 [id number] 111 [employer] patrick t ed influenza virus vaccine, live 07/19/10 Given Ambulat ory Pharmac y influenza virus vaccine, live, attenuated, for intranasal use 1 2009 Unknown, Provider [id number] 111 [employer] (MED) complet ed influenza virus vaccine, live, attenuate d, for intranasa l use DoD Novel influenza-H1N 1-09, injectable 2009 zzLef t Arm [id number] 1 127 Nov[employer]is [employer] ls complet ed Novel influenza -[id number], injectabl e 11/01/09 Given Ambulat ory Pharmac y Novel influenza-H1N 1-09, injectable 1 2009 Unknown, Provider [id number] 1 127 Nov[employer]is [employer] l [place]. (NOV) complet ed Novel influenza -[id number], injectabl e DoD influenza virus vaccine,split 2008 15 complet ed influenza virus vaccine,s plit 07/11/09 Given Ambulat ory Pharmac y influenza virus vaccine, split virus (incl. purified surface antigen)-reti red CODE 2 2008 Unknown, Provider 15 Transcribed (TRS) complet ed influenza virus vaccine, split virus (incl. purified surface antigen)- retired CODE DoD tetanus-dipht h toxoids (Td) adult/adol 2006 09 complet ed tetanus-d iphth toxoids (Td) adult/ado l 05/10/07 Given Ambulat ory Pharmac y tetanus and diphtheria toxoids, adsorbed, preservative free, for adult use (2 Lf of tetanus toxoid and 2 Lf of diphtheria toxoid) 2 2006 Unknown, Provider 09 Transcribed (TRS) complet ed tetanus and diphtheri a toxoids, adsorbed, preservat mario free, for adult use (2 Lf of tetanus toxoid and 2 Lf of diphtheri a toxoid) DoD hepatitis A-hepatitis B vaccine 2003 Olivier Arm [id number] 6 104 GlaxoSmithKli ne complet ed hepatitis A-hepatit is B vaccine 03/07/04 Given Ambulat ory Pharmac y hepatitis A and hepatitis B vaccine 3 2003 Unknown, Provider [id number] 6 104 [employer]Kline (SKB) complet ed hepatitis A and hepatitis B vaccine DoD hepatitis A-hepatitis B vaccine 2002 zzRig ht Arm [id number] 6 104 GlaxoSmithKli ne complet ed hepatitis A-hepatit is B vaccine 09/30/03 Given Ambulat ory Pharmac y hepatitis A and hepatitis B vaccine 2 2002 Unknown, Provider [id number] 6 104 [employer] (SKB) complet ed hepatitis A and hepatitis B vaccine DoD influenza virus vaccine, whole virus 2002 zzLef t Arm [id number] 16 sanofi pasteur complet ed influenza virus vaccine, whole virus 08/19/03 Given Ambulat ory Pharmac y hepatitis A-hepatitis B vaccine 2002 zzLef t Arm [id number] 6 104 GlaxoSmithKli ri complet ed hepatitis A-hepatit is B vaccine 08/19/03 Given Ambulat ory Pharmac y influenza virus vaccine, whole virus 1 2002 Unknown, Provider [id number] 16 Sanofi Pasteur ([facility]) complet ed influenza virus vaccine, whole virus DoD hepatitis A and hepatitis B vaccine 1 2002 Unknown, Provider [id number] 6 104 [facility] (SKB) complet ed hepatitis A and hepatitis B vaccine DoD pneumococcal polysaccharid e, 23 valent 2002 zzLef t Arm [id number] 33 Merck & Company Inc complet ed pneumococ gricelda polysacch aride, 23 valent 08/04/03 Given Ambulat ory Pharmac y pneumococcal polysaccharid e vaccine, 23 valent 1 2002 Unknown, Provider [id number] 33 Merck (MSD) complet ed pneumococ gricelda polysacch aride vaccine, 23 valent DoD influenza virus vaccine, whole virus 2001 zzLef t Arm [id number] 16 sanofi pasteur complet ed influenza virus vaccine, whole virus 10/03/02 Given Ambulat ory Pharmac y influenza virus vaccine, whole virus 1 2001 Unknown, Provider [id number] 16 Sanofi Pasteur ([facility]) complet ed influenza virus vaccine, whole virus DoD tuberculin purified protein derivative 2001 zzLef t Arm [id number] 96 sanofi pasteur complet ed Patient Tolerance : Negative Ambulat ory Pharmac y tuberculin skin test; purified protein derivative solution, intradermal 1 2001 Unknown, Provider [id number] 96 Sanofi Pasteur ([facility]) complet ed tuberculi n skin test; purified protein derivativ e solution, intraderm al DoD tuberculin purified protein derivative 2000 [id number] 96 [facility] complet ed tuberculi n purified protein derivativ e 07/02/01 Given Ambulat ory Pharmac y tuberculin purified protein derivative 1998 [id number] 96 [facility] complet ed tuberculi n purified protein derivativ e 07/25/99 Given Ambulat ory Pharmac y tetanus-dipht h toxoids (Td) adult/adol 1998 [id number] 09 [facility] complet ed tetanus-d iphth toxoids (Td) adult/ado l 07/25/99 Given Ambulat ory Pharmac y tetanus and diphtheria toxoids, adsorbed, preservative free, for adult use (2 Lf of tetanus toxoid and 2 Lf of diphtheria toxoid) 1 1998 Unknown, Provider [id number] 09 [place] (CON) complet ed tetanus and diphtheri a toxoids, adsorbed, preservat mario free, for adult use (2 Lf of tetanus toxoid and 2 Lf of diphtheri a toxoid) DoD measles/mumps /rubella virus vaccine 1989 zzLef t Arm 03 complet ed measles/m umps/rube lla virus vaccine 03/21/90 Given Ambulat ory Pharmac y measles, mumps and rubella virus vaccine 1 1989 Unknown, Provider 03 () complet ed measles, mumps and rubella virus vaccine DoD poliovirus vaccine, live, oral 1974 02 complet ed polioviru s vaccine, live, oral 04/03/75 Given Ambulat ory Pharmac y trivalent poliovirus vaccine, live, oral 5 1974 Unknown, Provider 02 () complet ed trivalent polioviru s vaccine, live, oral DoD Encounters Combined list of: 1) Encounters from Department of Veterans Affairs facilities going backup to the last 18 months, not all VA inpatient encounters are included; 2) Encounters from the Department of Defense facilities going backup to 280 months. Location Location Details Encounter Type Encounter Number Reason For Visit Attending Provider ADM Date DC Date Status Disposition Source [address] [place] [address] Dre HAHN [facility] ) OUTPATIENT [id number] follow- up JERRICA MITCHELL 04/27 Released w/o Limitations [address] [place] [address] Dre HAHN [facility] [employer] [facility]) [address] [place] [address] Dre HAHN 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 consult JERRICA MITCHELL 05/[address] [place] [address] Dre HAHN [facility] [employer] [facility]) [address] [place] [address] Dre HAHN [facility]All ergy Resource [facility]aring) TELE CONSULT [id number] ANTONIO COFFMAN 07/07 [employer] [facility] ([facility]A llergy Resourc e Sharing ) [employer] [facility] ([facility]All ergy Resource [facility]aring) TELE CONSULT [id number] ANTONIO COFFMAN 07/06 [employer] [facility] ([facility]A llergy Resourc e Sharing ) [employer] [facility] ([facility]All ergy Resource Sharing) TELE CONSULT [id number] Lab results ANTONIO COFFMAN 07/11 [facility] ([facility]A llergy Resourc e Sharing ) [employer] [facility] ([facility]All ergy Resource Sharing) TELE CONSULT [id number] lab results [id number] ANTONIO COFFMAN 07/25 [facility] ([facility]A llergy Resourc e Sharing ) [facility] ([facility]All ergy) TELE CONSULT [id number] hypogam jan bautista. ELIO HERRON 07/18 [facility]A llergy) [facility]Fam polo Practice Non-GME FHI1) OUTPATIENT [id number] naf physicbella l/ph#[phone] JIM DURÁN 07/09 Released w/o Limitations [employer] [facility]F amily Practic e Non-GME FHI1) [facility] ) TELE CONSULT [id number] NAF Physica l - ALIREZA Byrne 06/02 Referred for Appointment [employer] [facility] Medicin e Tm) [facility] Dre [facility] ) OUTPATIENT [id number] NAF OCHOA Mock 06/23 Released w/o Limitations [address] [place] [address] Group Dre [facility] [facility]) Procedures Combined list of: 1) Procedures from Department of Veterans Affairs facilities going back up to thelast 18 months, not all VA non-surgical procedures are included; 2) All procedures from the Department of Defense facilities. Procedure Procedure Type Code Date Perfomer Comments Sourc e No data available for this section Ambulatory Pharmacy Extensive Color Vision Testing Extensive Color Vision Testing 49553 0 QIANA, OCHOA E DoD Screening Test Of Visual Acuity, Quantitative, Bilateral Screening Test Of Visual Acuity, Quantitative, Bilateral 31209 0 QIANA, OCHOA E DoD Threshold Audiogram (Pure Tone) Threshold Audiogram (Pure Tone) 99235 0 QIANA, OCHOA E DoD BRONCHODILATION RESPONSIVENESS, [place] [address], PRE- AND POST-BRONCHODILATOR ADMINISTRATION 1 DoD INTRACUTANEOUS (INTRADERMAL) TESTS WITH ALLERGENIC EXTRACTS, DELAYED TYPE REACTION, INCLUDING READING, SPECIFY NUMBER OF TESTS 1 DoD INTRAVENOUS INFUSION FOR THERAPY/DIAGNOSIS, ADMINISTERED BY PHYSICIAN OR UNDER DIRECT SUPERVISION OF PHYSICIAN; UP TO ONE HOUR 2 DoD BLOOD COUNT; HEMOGRAM, MANUAL, COMPLETE CBC (RBC, WBC, HGB, HCT, DIFFERENTIAL AND INDICES) 1 DoD THERAPEUTIC, PROPHYLACTIC OR DIAGNOSTIC INJECTION (SPECIFY MATERIAL INJECTED); SUBCUTANEOUS OR INTRAMUSCULAR 1 DoD SHAVING OF EPIDERMAL OR DERMAL LESION, SINGLE LESION, TRUNK, ARMS OR LEGS; LESION DIAMETER 0.6 TO 1.0 CM 1 DoD PRESSURIZED/NONPRESS INHAL TREAT FOR AC AIRWAY OBSTRUCT,THERAP PURPOSE &/FOR DIAG PURP SUCH SPUTUM INDUCTION W AN AEROSOL GEN,NEBULIZER,METER DOSE INHALER/INTERMIT POSIT PRESS BREATHING (IPPB) DEV 1 DoD OPHTHALMOLOGICAL SERVICES: MEDICAL EXAMINATION AND EVALUATION WITH INITIATION OF DIAGNOSTIC AND TREATMENT PROGRAM; INTERMEDIATE, NEW PATIENT 1 DoD SCREENING TEST OF VISUAL ACUITY, QUANTITATIVE, BILATERAL 0 DoD INJECTION, LORAZEPAM, 2 MG 4 DoD SPIROMETRY, INCLUDING GRAPHIC RECORD, TOTAL AND TIMED VITAL CAPACITY, EXPIRATORY FLOW RATE MEASUREMENT(S), WITH OR WITHOUT MAXIMAL VOLUNTARY VENTILATION 4 DoD INJECTION, DIPHENHYDRAMINE HCL, UP TO 50 MG 4 DoD GLUCOSE; QUANTITATIVE, BLOOD (EXCEPT REAGENT STRIP) 4 DoD PREDNISOLONE ORAL, PER 5 MG 4 DoD INFUSION, NORMAL SALINE SOLUTION, 250 CC 4 DoD INJECTION, HYDROXYZINE HCL, UP TO 25 MG 4 DoD INFECTIOUS AGENT ANTIGEN DETECTION BY IMMUNOASSAY WITH DIRECT OPTICAL (IE, VISUAL) OBSERVATION; STREPTOCOCCUS, GROUP A 4 DoD INJECTION, FAMOTIDINE, 20 MG 4 DoD INJECTION, DIPHENHYDRAMINE HCL, UP TO 50 MG 4 DoD INFECTIOUS AGENT ANTIGEN DETECTION BY IMMUNOASSAY WITH DIRECT OPTICAL (IE, VISUAL) OBSERVATION; STREPTOCOCCUS, GROUP A 4 DoD CULTURE, BACTERIAL; ANY OTHER SOURCE EXCEPT URINE, BLOOD OR STOOL, AEROBIC, WITH ISOLATION AND PRESUMPTIVE IDENTIFICATION OF ISOLATES 3 DoD INFUSION, NORMAL SALINE SOLUTION, 250 CC 3 DoD PREDNISOLONE ORAL, PER 5 MG 3 DoD INJECTION, PENICILLIN G BENZATHINE, UP TO 600,000 UNITS 3 DoD PERCUTANEOUS TESTS (SCRATCH, PUNCTURE, PRICK) WITH ALLERGENIC EXTRACTS, IMMEDIATE TYPE REACTION, INCLUDING TEST INTERPRETATION AND REPORT, SPECIFY NUMBER OF TESTS 3 DoD INFECTIOUS AGENT ANTIGEN DETECTION BY IMMUNOASSAY WITH DIRECT OPTICAL (IE, VISUAL) OBSERVATION; STREPTOCOCCUS, GROUP A 3 DoD ALBUTEROL,ALL FORMULATIONS ISOMERS,INHALATION SOLUTION ADMINISTERED THRU DME,UNIT DOSE PER 1 MG PER.5 MG 3 DoD IPRATROPIUM BROMIDE, INHALATION SOLUTION, FDA-APPROVED FINAL PRODUCT, NON-COMPOUNDED, ADMINISTERED THROUGH DME, UNIT DOSE FORM, PER MILLIGRAM 3 DoD IPRATROPIUM BROMIDE, INHALATION SOLUTION, FDA-APPROVED FINAL PRODUCT, NON-COMPOUNDED, ADMINISTERED THROUGH DME, UNIT DOSE FORM, PER MILLIGRAM 3 DoD INFECTIOUS AGENT ANTIGEN DETECTION BY IMMUNOASSAY WITH DIRECT OPTICAL (IE, VISUAL) OBSERVATION; STREPTOCOCCUS, GROUP A 3 DoD RESPIRATORY FLOW VOLUME LOOP 3 DoD BRONCHODILATION RESPONSIVENESS, [place] [address], PRE- AND POST-BRONCHODILATOR ADMINISTRATION 3 DoD IPRATROPIUM BROMIDE, INHALATION SOLUTION, FDA-APPROVED FINAL PRODUCT, NON-COMPOUNDED, ADMINISTERED THROUGH DME, UNIT DOSE FORM, PER MILLIGRAM 3 DoD NONINVASIVE EAR OR PULSE OXIMETRY FOR OXYGEN SATURATION; SINGLE DETERMINATION 3 DoD ALBUTEROL,ALL FORMULATIONS ISOMERS,INHALATION SOLUTION ADMINISTERED THRU DME,UNIT DOSE PER 1 MG PER.5 MG 3 DoD IPRATROPIUM BROMIDE, INHALATION SOLUTION, FDA-APPROVED FINAL PRODUCT, NON-COMPOUNDED, ADMINISTERED THROUGH DME, UNIT DOSE FORM, PER MILLIGRAM 3 DoD IPRATROPIUM BROMIDE, INHALATION SOLUTION, FDA-APPROVED FINAL PRODUCT, NON-COMPOUNDED, ADMINISTERED THROUGH DME, UNIT DOSE FORM, PER MILLIGRAM 3 DoD NONINVASIVE EAR OR PULSE OXIMETRY FOR OXYGEN SATURATION; SINGLE DETERMINATION 3 DoD IPRATROPIUM BROMIDE, INHALATION SOLUTION, FDA-APPROVED FINAL PRODUCT, NON-COMPOUNDED, ADMINISTERED THROUGH DME, UNIT DOSE FORM, PER MILLIGRAM 3 DoD INJECTION, MAGNESIUM SULPHATE, PER 500 MG 3 DoD PATIENT EDUCATION, NOT OTHERWISE CLASSIFIED, NON-PHYSICIAN PROVIDER, INDIVIDUAL, PER SESSION 3 DoD DESTRUCTION (EG, LASER SURGERY, ELECTROSURGERY, CRYOSURGERY, CHEMOSURGERY, SURGICAL CURETTEMENT), PREMALIGNANT LESIONS (EG, ACTINIC KERATOSES); FIRST LESION 3 DoD NONINVASIVE EAR OR PULSE OXIMETRY FOR OXYGEN SATURATION; SINGLE DETERMINATION 2 DoD NONINVASIVE EAR OR PULSE OXIMETRY FOR OXYGEN SATURATION; SINGLE DETERMINATION 2 DoD SPIROMETRY, INCLUDING GRAPHIC RECORD, TOTAL AND TIMED VITAL CAPACITY, EXPIRATORY FLOW RATE MEASUREMENT(S), WITH OR WITHOUT MAXIMAL VOLUNTARY VENTILATION 2 DoD URINALYSIS, BY DIP STICK OR TABLET REAGENT FOR BILIRUBIN, GLUCOSE, HEMOGLOBIN, KETONES, LEUKOCYTES, NITRITE, PH, PROTEIN, SPEC GRAVITY, UROBILINOGEN, ANY NUMBER OF CONSTITUENTS; W/O MICRO, AUTOMATED 2 DoD SPIROMETRY, INCLUDING GRAPHIC RECORD, TOTAL AND TIMED VITAL CAPACITY, EXPIRATORY FLOW RATE MEASUREMENT(S), WITH OR WITHOUT MAXIMAL VOLUNTARY VENTILATION 2 DoD DIAGNOSTIC ULTRASOUND OF ABDOMEN AND RETROPERITONEUM 4 DoD LAPAROSCOPY 4 DoD APPENDECTOMY 4 DoD DIAGNOSTIC ULTRASOUND OF ABDOMEN AND RETROPERITONEUM 3 DoD Social History Combined list of available smoking, tobacco, and other social history from Department of Defense and Veterans Affairs facilities. Social History Type Response Date Comment Sourc e This section is an empty social history section. DoD Assessment and Plan Combined list of future care activities from Department of Defense and Veterans Affairs facilities (e.g., assessment and plan notes, appointments, orders, and referrals). Additional future care activities may be listed in the Plan of Care section. Result Assessment and Plan Date Source Assessment and Plan No data available for this section 12/14/2024 Ambulatory Pharmacy Functional Status Combined list of recent functional and cognitive assessments recorded at [facility] and [facility] ([place]).[place] Functional [place] Measurement (FIM) Scale: 1 = Total Assistance (Subject = 0% +), 2 = Maximal Assistance (Subject = 25% +), 3 = Moderate Assistance (Subject = 50% +), 4 = Minimal Assistance (Subject = 75% +), 5 = Supervision, 6 = Modified [place] (Device), 7 = Complete [place] (Timely, Safely). Assessment Date/Time Source Assessment Type Assessment Skill Assessment Score Assessment Details No data available for this section
--- OUTSIDE RECORDS SUMMARY | 2024-12-14 13:19 | XMS_ITS | Encounter Summary ---
Author Organization [facility] Address [address] [place] [address] Care Team Providers Care Screen And Cyclone Repairer Name Role Phone Gerardo Angeles MD Unavailable [phone] Edgar Piper MD Unavailable [phone] Ruby Manzano MD Unavailable Unavailable Stanley Quezada MD Unavailable [phone] Theodore Zamora DO Primary Care Provider + Reason for Visit * Reason Onset Date Comments MEDICATION REFILL 08/28/2024 Encounter Details Date Type Department Care Team (Late st Contact Info) Description 08/28/2024 Telephone [facility] - Allergy [address] [place] [address], [place] [id number] Stanley Quezada MD [address] [place] [address] OF ALLERGY/[place] [address] MEDICATION REFILL Social History Tobacco Use Types Packs/Day Years Used Date Smoking Tobacco: Never Smokeless Tobacco: Never Alcohol Use Standard Drinks/Week Comments Yes 0 (1 standard drink = 0.6 oz pur e alcohol) Socially AUDIT-C Answer Date Recorded Q1: How often do you have a drink containing alcohol? Never 05/18/2023 Q2: How many drinks containi ng alcohol do you have on a typical day when you are drinking? Patient does not drink Q3: How often do you have si x or more drinks on one occasion? Never 05/18/2023 PHQ-2 Answer Date Recorded Patient Health Questionnaire-2 Score 0 02/15/2024 Sex and Gender Information Value Date Recorded [...] encounter Miscellaneous Notes * Telephone Encounter - Any Kerr DO - 08/28/2024 2:54 PM CDT I sent another prescription for the RSV vaccine for her. If this also is not covered with insurance, she will need to follow up with her PCP for possible administration in their clinic or PA for the vaccine as we typically do not administer this in our clinic. * Telephone Encounter - Adam Stephenson - 08/28/2024 1:20 PM CDT change of medication or PA is needed. Arexvy 0.5ml Im vial ( 10pack) plan does not cover this medication . Needs a PA or change of medication. PT ID: [id number] [phone] documented in this encounter Plan of Treatment Upcoming Encounters Date Type Department Care Team (Late st Contact Info) Description 03/18/2025 8:00 PM CDT Procedure visit [facility] - Sleep Services [address] [place] [address] 03/30/2025 11:00 AM CDT Office Visit [facility] - Pulmonology [address], [place] [phone] Bonifacio Easton MD [address] [place] [address] 2L DIV OF PULMONARY/[place] [phone] 04/01/2025 1:00 PM CDT Office Visit [facility] - Dermatology [address] [place] [address], [place] [phone] Ty Molina MD [address] [place] [address] 3[address] Dept [place] [phone] 05/20/2025 3:00 PM CDT Office Visit [facility] - Allergy [address] [place] [address], [place] [phone] Stanley Quezada MD [address] [place] [address] [address] DIV OF ALLERGY/[place] [address] documented as of this encounter Goals Goal [...] on filedocumented in this encounter Care Teams Screen And Cyclone Repairer Relationship Specialty Start Date End Date Theodore Zamora DO [address] [place] [address] PCP - General Family Medicine Geriatric Medicine 04/11/23 Gerardo Angeles MD Otolaryngology 07/16/19 Edgar Piper MD Otolaryngology 07/16/19 Ruby Manzano MD Dermatology 07/16/19 Stanley Quezada MD [address] [place] [id number] Allergy and Immunology 07/16/19 documented as of this encounter
--- OUTSIDE RECORDS SUMMARY | 2024-12-14 13:19 | XMS_ITS | Encounter Summary ---
Author Organization [facility] Address [address] [place] [address] Care Team Providers Care Baked And Graphite Inspector Name Role Phone Theodore Zamora DO Primary Care Provider + Nena Holland RN Unavailable [phone] Bonifacio Easton MD Unavailable Encounter Details Date Type Department Care Team (Late st Contact Info) Description 03/03/2023 MyChart Message Enc [facility] Medical Group Family & Internal Medicine [facility] [address] [place] [address] Theoodre Zamora DO [address] [place] [address] [facility] Social History Tobacco Use Types Packs/Day Years Used Date Smoking Tobacco: Never Passive Smoke Exposure: Past Smokeless Tobacco: Never Alcohol Use Standard Drinks/Week Comments Yes 0 (1 standard drink = 0.6 oz pur e alcohol) occ PHQ-2 Answer Date Recorded Patient Health Questionnaire-2 Score 0 11/23/2022 Comments No Sex and Gender Information Value Date Recorded Sex Assigned at Female 11/26/2024 1:20 PM VIRTUAL OFFICE ASSISTANT Legal Sex Female 5:37 PM CDT Gender Identity Female 11/26/2024 1:20 PM VIRTUAL OFFICE ASSISTANT Sexual Orientation Not on file Occupation Industry [...] st Contact Info) Description 12/16/2024 11:30 AM VIRTUAL OFFICE ASSISTANT Appointment [facility] [address] [place] [address] Marcus, MD Joycelyn 12/16/2024 1:00 PM VIRTUAL OFFICE ASSISTANT Appointment [facility] [address] [place] [address] Patel Garay MD [address] [address] 02/24/2025 1:00 PM CDT Office Visit [facility] Medical Group Family & Internal Medicine [facility] [address] [place] [address] Theodore Zamora DO [address] [place] [address] documented as of this encounter Goals Goal Patient Goal Type Associated Problems Recent Progress Patient-Stated? Author Consistently take medications as Prescribed General On track(2024 3:27 PM VIRTUAL OFFICE ASSISTANT) No Nena Holland RN Establish Plan for Symptom Monitoring- COPD/Asthma General On track(2024 3:27 PM VIRTUAL OFFICE ASSISTANT) Nena Mohan RN Note: COPD/Asthma: Patient will recognize symptoms of COPD/Asthma exacerbation and report to the physician. If severe, patient will seek emergent treatment at [facility] or ER. 01/24/23: Patient seen by (Pool Installer) on 01/10/23 and will f/u on 03/28/23. Reduce Blood Pressure Lifestyle On track(2024 3:27 PM VIRTUAL OFFICE ASSISTANT) Nena Mohan RN Note: Patient to monitor blood pressure weekly and report the onset of any changes. Patient will take medications as directed. documented as of this encounter Visit Diagnoses Not on filedocumented in this encounter Additional Health Concerns Assessment Noted Time PHQ-9 Depression Total Score: 0 04/21/20 22 8:42 AM CDT documented as of this encounter Care Teams Baked And Graphite Inspector Relationship Specialty Start Date End Date Theodore Zamora DO [address] [place] [address] PCP - General FAMILY PRACTICE 03/15/22 Nena Holland RN [address] [place] [address] Unit Nurse (Ambulatory) REGISTERED NURSE 03/17/22 Bonifacio Easton MD [facility] [place] [address] PULMONARY DISEASE 08/29/22 documented as of this encounter
--- OUTSIDE RECORDS SUMMARY | 2024-12-14 13:20 | XMS_ITS | Clinical Summary ---
Author Organization [facility] Address [address] [place] [address] Care Team Providers Care Transition Program Manager Name Role Phone Gerardo Angeles MD Unavailable [phone] Reji Piper MD Unavailable [phone] Ruby Manzano MD Unavailable Unavailable Stanley Quzeada MD Unavailable [phone] Theodore Zamora DO Primary Care Provider + Source Comments [facility],non-owned Affiliates and Associated Physician Practices is amultiple site organization consisting of ambulatory clinics and hospital sitesin [place], [place], [place] and [place]. This disclosure is being madepursuant to the Care Everywhere program and may not contain all information available regarding this patient. Last updated 18.[facility] Allergies Active Allergy Reactions Criticality Noted Date Comments Adhesive Sensitivity Rash Medium 08/22/2012 Can use paper tape... NOT the IV clear tape... Can use coban Aspirin Anaphylaxis High 02/16/2011 Tongue swelling, SOB, went to ER... Given med's no artificial airway needed epi pen steroids and benadryl Aztreonam Fever,Other,Rash High 09/20/2013 Severe hives with over all rash and skin peeled off Aztreonam In Dextrose Rash,Fever,Systemic High 09/20 Severe hives with over all rash and skin peeled off Ciprofloxacin Rash Medium 07/10/2014 Heparin Other 06/14/2020 Red areas where heparin was given subQ Ibuprofen Anaphylaxis High 02/16/2011 Tongue swelling, went to ER received meds, no artifical airway needed Latex Shortness of Breath,Swelling High 12/15/2011 Swelling of where ever the latex touches Nifedipine Urticaria,Dizziness Medium 02/16/2011 Nsaids Anaphylaxis,Urticari a High 11/12/2003 Tongue swelling went to ER given meds no artifical airway needed Prochlorperazine Unknown 03/03/2021 Shellfish Allergy Shortness of Breath,Swelling High 08/22/2012 Did not go to ER.... 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 Alwaysverify current medications with the patient. Medication Sig Dispensed Refills Start Date End Date Status amLODIPine (NORVASC) 10 MG tablet Take 1 (one) tablet by mouth once daily 0 02/06/2018 Active furosemide (LASIX) 40 MG tablet Take 1 (one) tablet by mouth once daily 12/21/2017 Active lamoTRIgine (LAMICTAL) 200 MG tablet Take 1 (one) tablet by mouth 2 times daily 5 11/20/2017 Active ramipril (ALTACE) 5 MG capsule Take 1 (one) capsule by mouth 2 times daily 0 02/06/2018 Active immune globulin, human, (GAMUNEX-C) infusionIndication s:CVID (common variable immunodeficiency) (HCC) 70 g by Intravenous route every 28 days 700 mL 11 03/06/2018 Active albuterol (PROVENTIL;VENTOLI N) (2.5 MG/3ML) 0.083% nebulizer solution Inhale 2.5 (two and one-half) mg by mouth 4 times daily as needed for Shortness of Breath or Wheezing Active diphenhydrAMINE (BENADRYL) 25 mg/50 mL infusion 25 (twenty five) mg by Intravenous route every 28 days For IVIG Active fluticasone propionate (FLONASE) 50 MCG/ACT nasal spray [place] 2 (two) sprays into each nostril once daily Active albuterol HFA (PROVENTIL;VENTOLI N;PROAIR) 108 (90 Base) MCG/ACT inhaler Inhale 2 (two) puffs by mouth every 6 hours as needed Active cetirizine-pseudoe phedrine 12hr (ZYRTEC-D) 5-120 MG tablet Take 1 (one) tablet by mouth as needed Active fexofenadine (LENA) 180 MG tablet Take by mouth once daily 11/30/2020 Active theophylline CR 12hr (THEODUR) 300 MG tablet Take 1 (one) tablet by mouth 2 times daily 01/27/2021 Active olopatadine (PATANOL) 0.1 % ophthalmic solution 04/18/2021 Active acetaminophen (TYLENOL) 500 MG capsule Take 1 (one) capsule by mouth every 4 hours as needed for Fever or Pain Active mometasone-formote rol (DULERA) 200-5 MCG/ACT inhalerIndications :Asthma,Chronic Obstructive Pulmonary Disease Inhale 2 (two) puffs by mouth 2 times daily Reasons: Asthma, Chronic Obstructive Lung Disease 39 g 3 11/01/2021 Active levothyroxine (SYNTHROID) 25 MCG tablet Take by mouth once daily Mon, wed, fri-2 tabs, Tu, Thurs-1 tab 12/27/2021 Active rivaroxaban (XARELTO) 20 MG tablet Take 1 (one) tablet by mouth daily with dinner 30 tablet 05/21/2022 Active HYDROcodone-acetam inophen ([place]) 5-325 MG tablet Take 1 (one) tablet by mouth every 6 hours as needed for Pain Active benzonatate (Tessalon) 100 MG capsule Take 1 (one) capsule by mouth 3 times daily 270 capsule 4 01/10/2023 Active guaiFENesin ER 12hr (Mucinex) 600 MG tablet Take 1 (one) tablet by mouth every 12 hours as needed for Cough 90 tablet 3 01/10/2023 Active diphenhydrAMINE (Benadryl) 25 MG capsule Take 1 (one) capsule by mouth every 6 hours as needed for Allergies Active vitamin D, ergocalciferol, (Drisdol) 1.25 MG (90464 UT) capsule Take 1 (one) capsule by mouth every 7 days 11/05/2023 Active omeprazole (PriLOSEC) 40 MG capsule Take 1 (one) capsule by mouth 2 times daily, before breakfast and supper 11/28/2023 Active ciclopirox (Penlac) 8 % solution Apply to affected area 2 times daily 6.6 mL 4 02/15/2024 Active ondansetron (Zofran) 4 MG tabletIndications: CVID (common variable immunodeficiency) ([facility]) Take 1 (one) tablet by mouth every 8 hours as needed for Nausea/Vomiting 30 tablet 3 02/15/2024 Active mupirocin (Bactroban) 2 % ointment Apply to affected area 3 times daily 22 g 02/15/2024 Active tacrolimus (Protopic) 0.1 % ointmentIndication s:Morphea,Lichen sclerosus Apply clobetasol to affected areas on trunk twice daily for 2 weeks, then tacrolimus twice daily for 1 week, and continue to alternate as directed when rash is active. 30 day supply. 100 g 5 03/28/2024 Active tiotropium (Spiriva Respimat) 2.5 MCG/ACT inhalerIndications :Persistent asthma with undetermined severity ([facility]),Chronic obstructive pulmonary disease, unspecified COPD type ([facility]) Inhale 2 (two) puffs by mouth once daily 4 g 11 04/30/2024 Active ciprofloxacin-dexA METHasone (Ciprodex) 0.3-0.1 % otic suspension Instill 4 (four) drops into both ears 2 times daily Shake well before using. 7.5 mL 3 08/26/2024 Active Additional Information Patient taking differently:4 drop Each EarPRN, Shake well before using., Reported on 10/02/2024 EPINEPHrine (Epipen) 0.3 MG/0.3ML auto-injector penIndications:Nicole d allergy Inject 0.3 mL into muscle once as needed for Anaphylaxis 2 Each 1 08/27/2024 Active cetirizine (ZyrTEC) 10 MG tablet Take 1 (one) tablet by mouth once daily as needed Active cholestyramine (Questran) 4 g packet as needed 08/22/2024 Active UltiCare Tuberculin Safety Syr 25G X 5/8 1 ML MISC USE ONCE A WEEK DIRECTED 05/29/2024 Active clobetasol (Temovate) 0.05 % cream APPLY TO THE VULVAR AREA AT BEDTIME UNTIL FOLLOW UP APPOINTMENT Active cyanocobalamin (Vitamin B-12) injection Inject 1,000 (one thousand) mcg into muscle 05/21/2024 Active folic acid (Folvite) 1 MG tablet Take 1 (one) tablet by mouth once daily 06/09/2024 Active liothyronine (Cytomel) 5 MCG tablet Take 1 (one) tablet by mouth 2 times daily 09/01/2024 09/01/2025 Active famotidine (Pepcid) 40 MG tablet Take 1 (one) tablet by mouth 2 times daily Active fluticasone hfa 220 (Flovent HFA) 220 MCG/ACT inhaler Inhale 2 (two) puffs by mouth 2 times daily Active Active Problems Problem Noted Date Diagnosed Date 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 History of pulmonary embolism 05/26/2024 Lung nodule 04/18/2023 Pleuritic chest pain 04/18/2023 ILD (interstitial lung disease) 01/10/[address] 01/10/2023 Chronic cough 01/10/2023 Persistent asthma with undetermined severity Perennial allergic rhinitis 09/20/2022 Gastroesophageal reflux disease without esophagi tis 09/20/2022 Hyperuricemia 11/09/2021 Sepsis 01/24/2021 Hand dermatitis 11/15/2020 Assessment & Plan (11/15/2020 12:25 PM SHIPPING ASSISTANT): Favor irritant dermatitis due to hand washing - Start triamcinolone 0.1% cream BID to affected areas on hands, SE of topical steroids including skin atrophy discussed - Recommended emolliation after hand washing Inflamed seborrheic keratosis 11/15/2020 Assessment & Plan (11/15/2020 12:23 PM SHIPPING ASSISTANT): - Benign, reassured patient - Given bothersome, treated with LN2 in clinic today, see procedure note Multiple nevi 11/15/2020 Assessment & Plan (11/15/2020 12:23 PM SHIPPING ASSISTANT): - Reassured patient if benign appearance today - Continue in office and self skin examinations - ABCDE of melanoma discussed - Continue sun protection with sunscreen, sun protective clothing and sun avoidance 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 Assessment & Plan (11/15/2020 12:26 PM SHIPPING ASSISTANT): - Reassured of benign appearance today Slow transit constipation 08/16/2020 Bilious vomiting with nausea 08/16/2020 Epigastric pain 08/16/2020 Functional dyspepsia 08/16/2020 Colonic stricture 02/24/2020 Polycystic ovaries 02/23/2020 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 08/13/2019 Non-seasonal allergic rhinitis 07/16/2019 Hyperlipidemia 06/18/2019 Dysphagia 03/28/2019 Thyroid nodule 03/28/2019 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 Arthralgia 02/05/2019 Myalgia 02/05/2019 Vitamin D deficiency 02/05/2019 Low ferritin 02/05/2019 Autoimmune thyroiditis 02/05/2019 Eosinophilia 05/04/2018 Food allergy 05/03/2018 Overview (05/03/2018): Shellfish, soy Poorly controlled severe per sistent asthma without complication 02/20/2018 CVID (common variable immunodeficiency) 02/21/20 18 Recurrent respiratory infection 02/20/2018 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 MSSA infection, non-invasive 02/11/2016 Chronic pansinusitis 02/17/2015 Chronic sinus bradycardia 12/21/2014 Essential hypertension, benign 09/07/2014 Anxiety 06/17/2014 Overview (01/08/2019): Overview: Anxiety Pulmonary embolism 06/05/2014 Overview (03/20/2018): Overview: ICD-10 Update Coagulation disorder 04/22/2014 Overview (01/08/2019): Overview: Coagulopathy Respiratory distress 02/24/2014 Chronic obstructive pulmonary disease 03/15/2012 Nasal polyps 03/28/2011 Raynaud's syndrome 07/11/2007 Hypogammaglobulinemia 07/25/2005 Polycystic ovaries 05/04/2004 Incisional hernia, without obstruction or gangre ne Resolved Problems Problem Noted Date Diagnosed Date Resolved Date Severe persistent asthma wit h acute exacerbation 11/26/2023 12/10/2023 History of pneumothorax 05/28/2023 01/2 01/2024 SOB (shortness of breath) 05/18/2023 History of pulmonary embolism 04/18/2023 11/21/2023 Recurrent sinus infections 04/18/2023 0 11/21/2023 Encounter for monitoring of theophylline therapy 01/10/2023 11/21/2023 Adverse food reaction 11/09/20212021 Intra-abdominal abscess 01/24/2021 04/0 03/2022 S/P laparoscopic-assisted sigmoidectomy 08/16/2020 02/01/2022 Abdominal pain, LLQ (left lower quadrant) 08/12/2020 02/01/2022 History of blood clots 06/18/201902/01 Body mass index (bmi) 36.0-36.9, adult 03/28/2019 02/01/2022 Encounter for occupational h istory and physical examination 01/08/2019 02/01/2022 Allergic rhinitis 02/20/2018 05/03/2018 History of pulmonary embolism 02/20/2018 09/01/2020 Cough 08/23/2016 04/17/2018 Carrier of Staphylococcus aureus 06/28/2016 06/21/2022 Non-allergic rhinitis 11/12/20152017 Right forearm injury, initial encounter 08/18/2015 02/01/2022 Dyspnea 01/25/2015 02/01/2022 Calf pain 05/21/2014 09/01/2020 Allergy to multiple antibiotics 05/15/2014 09/01/2020 Chronic respiratory failure 05/15/2014 02/01/2022 Unknown and unspecified causes of morbidity 04/22/2014 02/01/2022 Overview (01/08/2019): Overview: Chronic anticoagulation Pneumonia due to methicillin sensitive Staphylococcus aureus 04/08/2014 05/04/2018 Pneumonia due to organism 04/08/2014 Overview (03/20/2018): Overview: Probable S. aureaus ICD-10 update 2015 Asthma exacerbation 04/06/2014 04/03/20 18 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 05/03/2018 Encounters Date Type Department Care Team Description 12/01/2024 Telephone [facility] - Infectious Disease [address] [place] [phone] Stanley Quezada MD Med Question 11/17/2024 Travel 10/21/2024 Telephone [facility] - Allergy [address] [place] [phone] Stanley Quezada MD Vaccine Question 10/16/2024 Orders Only [facility] - Rheumatology [address] [place] [phone] Ryan Morris MD 10/09/2024 Telephone [facility] - Allergy [address] [place] [phone] Stanley Quezada MD Reminder Call 10/02/2024 10:22 AM SHIPPING ASSISTANT - 10/02/2024 11:59 PM SHIPPING ASSISTANT Hospital Encounter [facility] OP [address] [place] [phone] Ryan Morris MD Discharge Disposition: Home or Self Care 10/02/2024 8:30 AM SHIPPING ASSISTANT Office Visit [facility] - Rheumatology [address] [place] [phone] Ryan Morris MD Localized scleroderma (Primary Dx); Polyarthralgia 10/02/2024 Travel 10/01/2024 1:45 PM SHIPPING ASSISTANT Office Visit [facility] - ENT [address] [place] [phone] Gerardo Angeles MD Samter's triad (HCC) (Primary Dx); Chronic rhinosinusitis; Nasal congestion; Rhinitis, unspecified type 10/01/2024 Travel from Last 3 Months Immunizations Name Administration Dates Next Due COVID PFIZER 12+YR 30MCG/0.3mL 08/22/2024,2022 Covid Moderna primary monova lent 12+ yr 0.5mL 01/09/2021 Covid Pfizer primary Monoval ent 12+ yr 0.3ml 02/01/2022 Covid Pfizer primary monoval ent 12+ yr 0.3mL Purple cap 01/09/2021 FLU VACCINE TRI IIV3 SPLIT I M (FLUVIRIN) 07/25/2021 FLU, HISTORIC VACCINE 07/19/2010, 010,08/19/2003,2002,10/03/2002,10/03/2002 HEP A/HEP B 03/07/2004,09/30/2003,08/19/2003 INFLUENZA [id number], HISTORIC VACCINE 11/01/2009,0 11/01/2009,11/01/2009 INFLUENZA VACCINE 08/12/2023,,07/25/2021,2019,06/29/2019,07/16/2018,07/13/2018,0 10/29/2017,08/06/2017,06/28/2016, 015,07/28/2014,07/15/2013,07/19/2012,,07/19/2010,11/01/2009,07/11/20 09,08/19/2003,10/03/2002 INFLUENZA VACCINE, CELL CULT URE, QUADR. (FLUCELVAX QUADRIVALENT; 6MO+) (CCIIV4) 08/12/2023,07/30/2022,06/30/2020,2016 INFLUENZA VACCINE, CELL CULT URE, TRIV. (FLUCELVAX TRIVALENT; 6MO+), 0.5 ML (CCIIV3) 08/04/2024 INFLUENZA VACCINE, QUADR. (A FLURIA, FLUZONE QUADRIVALENT; 6MO+) (IIV4) 07/11/2009 INFLUENZA VACCINE, QUADR. (F LUZONE; FLULAVAL; FLUARIX; AFLURIA QUADRIVALENT; 6MO+), 0.5 ML (IIV4) 07/16/2019,07/16/2018 Influenza Intradermal 06/28/2016, 015,07/28/2014,2012,07/19/2012 MMR 03/21/1990 PNEUMOCOCCAL PCV VACCINE 10/29/2015 PNEUMOCOCCAL PCV20 CONJ VAC IM 04/18/2023 PNEUMOCOCCAL PPSV23 07/16/2018,07/13/2018,2002 PNEUMOCOCCAL PPV VACCINE 10/29/2015 POLIO OPV 04/03/1975 Pneumococcal Pcv13 Conj 09/02/2015,10/29/2014 TDAP (7yrs+) 06/19/2022,10/14/2014 Td (Adult), 2 Lf Tetanus Tox oid, Adsorbed, Pf 05/10/2007,07/25/1999 Zoster Hzv Vacc Recombinant Inj Im 12/07/2021, Family History Medical History Relation Name Comments Arthritis - Rheumatoid Brother Diabetes - Type 2 Brother Gout Brother Hypertension Brother Diabetes - Type 2 Father Hypertension Father None Known Maternal Aunt None Known Maternal Grandfather None Known Maternal Grandmother None Known Maternal Uncle Arthritis - Rheumatoid Mother CAD (Coronary Artery Disease) Mother Gout Mother None Known Other None Known Paternal Aunt None Known Paternal Grandfather None Known Paternal Grandmother None Known Paternal Uncle Asthma Neg Hx CVA Neg Hx Cancer - Breast Neg Hx Cancer - Other Neg Hx Cancer - Skin, Melanoma Neg Hx Cancer - Skin, Non Melanoma Neg Hx Eczema Neg Hx Hemophilia Neg Hx Psoriasis Neg Hx Relation Name Status Comments Brother Father Maternal Aunt Maternal Grandfather Maternal Grandmother Maternal Uncle Mother Alive Other Paternal Aunt Paternal Grandfather Paternal Grandmother Paternal Uncle Social History Tobacco Use Types Packs/Day Years Used Date Smoking Tobacco: Never Smokeless Tobacco: Never Tobacco Cessation:Counseling Given: Not [...] Date Recorded Patient Health Questionnaire-2 Score 0 10/02/2024 Sex and Gender Information Value Date Recorded Sex Assigned at Not on file Gender Identity Not on file Sexual Orientation Not on file Last Filed Vital Signs Vital Sign Reading Time Taken Comments Blood Pressure 136/86 10/02/2024 8:25 AM SHIPPING ASSISTANT Pulse 92 10/02/2024 8:25 AM SHIPPING ASSISTANT Temperature 36.9 C (98.4 F) 10/02/2024 8:25 AM SHIPPING ASSISTANT Respiratory Rate 17 05/26/2024 11:07 AM CDT Oxygen Saturation 91% 10/02/2024 8:25 AM SHIPPING ASSISTANT Inhaled Oxygen Concentration 21% 02/01/2021 8 :33 AM CDT Weight 108.9 kg (240 lb) 05/26/2024 11:07 AM CDT Height 170.2 cm (5' 7 ) 10/02/2024 8:25 AM SHIPPING ASSISTANT Body Mass Index 36.49 05/26/2024 11:07 AM CDT Plan of Treatment Upcoming Encounters Date Type Department Care Team (Late st Contact Info) Description 03/18/2025 8:00 PM CDT Procedure visit [facility] - Sleep Services [facility] [place] [phone] 03/30/2025 11:00 AM CDT Office Visit [facility] - Pulmonology [address] [place] [phone] Bonifacio Easton MD [address] [place] [address] 2[address] DIV OF PULMONARY/[place] [phone] 04/01/2025 1:00 PM CDT Office Visit [facility] - Dermatology [address] [place] [phone] Ty Molina MD [address] [place] [address] [address] [place] [phone] 05/20/2025 3:00 PM CDT Office Visit [facility] - Allergy [address] [place] [phone] Stanley Quezada MD [address] [place] [address] [address] DIV OF ALLERGY[place] [address] Health Maintenance Due Date Last Done Comments COLOGUARD (AGES 45-75) - COLON CA SCREENING 1969 CT COLONOGRAPHY - COLON CA SCREENING 1969 FIT - COLON CA SCREENING 1969 FLEX SIG - COLON CA SCREENING 1969 LIPID TESTING 1970 MEDICARE AWV 12 MONTHS 1969 PAP SMEAR 1969 HEPATITIS C SCREENING 07/08/1987 DEPRESSION SCREENING 10/29/2024 02/15/2024, 05/25/2023, 06/28/2022 MAMMOGRAM 07/27/2025 07/27/2023, 04/2022, 11/04/2021, Additional history exists SCREENING FOR DIABETES 10/16/2027 , 02/21/2024, 05/19/2023, Additional history exists COLON MONITORING 10/11/2030 10/11/2020, , 12/24/2019, Additional history exists COLONOSCOPY - COLON CA SCREENING 10/11/2030 10/11/2020, 10/11/2020, 12/24/2019, Additional history exists Colorectal Cancer Screening 10/11/2030 DTAP/TDAP/TD VACCINES (3 - Td or Tdap) 06/19/2032 06/19/2022, 10/14/2014, 05/10/2007, Additional history exists HEPATITIS B VACCINE Completed 03/07/2004, 09/30/2003, 08/19/2003 HIV SCREENING Completed 07/13/2014 ZOSTER VACCINE Completed 12/07/2021, 08/24/2021 PNEUMOCOCCAL VACCINE 50+ Completed 023, 07/16/2018, 07/13/2018, Additional history exists INFLUENZA VACCINE Completed 08/04/2024, , 08/12/2023, Additional history exists COVID-19 VACCINE Completed 08/22/2024, , 08/06/2022, Additional history exists HIB VACCINE Aged Out No longer eligi ble based on patient's age to complete this topic HPV VACCINE Aged Out No longer eligi ble based on patient's age to complete this topic MENINGOCOCCAL (Group B) VACCINE Aged Out No longer eligible based on patient's age to complete this topic MENINGOCOCCAL VACCINE Aged Out No erika elsa eligible based on patient's age to complete this topic Goals Goal Patient Goal Type Associated Problems Recent Progress Patient-Stated? Author Medication Management General On track( 020 8:56 AM CDT) No Ac [place], RN Note: Expected end date: ongoing Interventions: Take all medications as prescribed Let your doctor know right away about any changes in your medications Make sure to request a refill of your medication at least one week prior to your last dose Medical Devices Implanted Type Area Cashier Office Device Identifier Shelf Expiration Date Model / Serial / Lot Mesh Srg Ventralight St Sepra 8x6in Implanted:Qty: 1 on 03/11/2019 by Vishal Zhou MD at [facility] [employer] 11/25/2020 [id number] / / [id number] Tube Vnt T Flng Grmt 12mm 9.5mm 1.14mm Implanted:Qty: 1 on 06/17/2020 by Reji Piper MD at [facility] Right: Ear [employer] [id number] / / [id number] Sys Fx 37cm Cpsr Str Ss Peek Perm Hndl Implanted:Qty: 1 on 12/28/2020 by Vishal Zhou MD at [facility] Right: Abdomen [employer] 07/26/2022 [id number] / / [id number] Mesh Srg Ventralight St Sepra 8x6in Implanted:Qty: 1 on 12/28/2020 by Vishal Zhou MD at [facility] Right: Abdomen [employer] 04/25/2022 [id number] / / [id number] Procedures Procedure Name Priority Date/Time Associated Diagnosis Comments [place] BLOOD TITER 10/16/2024 9:45 AM SHIPPING ASSISTANT HISTONE ANTIBODY Routine 10/16/2024 9:45 AM SHIPPING ASSISTANT Localized scleroderma Polyarthralgia RIBOSOMAL P PROTEIN ANTIBODY Routine 10/16/2024 9:45 AM SHIPPING ASSISTANT Localized scleroderma Polyarthralgia LINE MAINTENANCE ANTIBODY Routine 10/16/2024 9:45 AM SHIPPING ASSISTANT Localized scleroderma Polyarthralgia URINALYSIS W/MICROSCOPIC NO CULTURE Routine 10/16/2024 9:45 AM SHIPPING ASSISTANT Localized scleroderma Polyarthralgia ERYTHROCYTE SEDIMENTATION RATE Routine 10/16/2024 9:45 AM SHIPPING ASSISTANT Localized scleroderma Polyarthralgia C-REACTIVE PROTEIN Routine 10/16/2024 9: 45 AM SHIPPING ASSISTANT Localized scleroderma Polyarthralgia COMPREHENSIVE METABOLIC PANEL Routine 10/16/2024 9:45 AM SHIPPING ASSISTANT Localized scleroderma Polyarthralgia CK BLOOD Routine 10/16/2024 9:45 AM SHIPPING ASSISTANT Localized scleroderma Polyarthralgia CBC W AUTO DIFFERENTIAL Routine 10/16/20 9:45 AM SHIPPING ASSISTANT Localized scleroderma Polyarthralgia ALDOLASE Routine 10/16/2024 9:45 AM SHIPPING ASSISTANT Localized scleroderma Polyarthralgia SS-B (SJOGREN'S) ANTIBODY Routine 10/16/2024 9:45 AM SHIPPING ASSISTANT Localized scleroderma Polyarthralgia SS-A (SJOGREN'S) ANTIBODY Routine 10/16/2024 9:45 AM SHIPPING ASSISTANT Localized scleroderma Polyarthralgia MCCULLOUGH (SM) ANTIBODY LEO Routine 10/16/20 9:45 AM SHIPPING ASSISTANT Localized scleroderma Polyarthralgia SCLEROSIS 12 ANTIBODY PNL Routine 10/16/2024 9:45 AM SHIPPING ASSISTANT Localized scleroderma Polyarthralgia RHEUMATOID FACTOR BLOOD QUANTITATIVE Routine 10/16/2024 9:45 AM SHIPPING ASSISTANT Localized scleroderma Polyarthralgia HINA-1 ANTIBODY Routine 10/16/2024 9:45 AM SHIPPING ASSISTANT Localized scleroderma Polyarthralgia IMMUNOGLOBULINS IGG/IGM/IGA PANEL Routine 10/16/2024 9:45 AM SHIPPING ASSISTANT Localized scleroderma Polyarthralgia BETA-2 GLYCOPROTEIN 1 ANTIBODY IGG/IGM/IGA PANEL Routine 10/16/2024 9:45 AM SHIPPING ASSISTANT Localized scleroderma Polyarthralgia CARDIOLIPIN ANTIBODY IGA Routine 10/16/2024 9:45 AM SHIPPING ASSISTANT Localized scleroderma Polyarthralgia CARDIOLIPIN ANTIBODY IGG Routine 10/16/2024 9:45 AM SHIPPING ASSISTANT Localized scleroderma Polyarthralgia CARDIOLIPIN ANTIBODY IGM Routine 10/16/2024 9:45 AM SHIPPING ASSISTANT Localized scleroderma Polyarthralgia CHROMATIN ANTIBODY Routine 10/16/2024 9: 45 AM SHIPPING ASSISTANT Localized scleroderma Polyarthralgia COMPLEMENT C3 Routine 10/16/2024 9:45 AM SHIPPING ASSISTANT Localized scleroderma Polyarthralgia COMPLEMENT C4 Routine 10/16/2024 9:45 AM SHIPPING ASSISTANT Localized scleroderma Polyarthralgia COMPLEMENT TOTAL Routine 10/16/2024 9:45 AM SHIPPING ASSISTANT Localized scleroderma Polyarthralgia DNA ANTIBODY DOUBLE STRANDED Routine 10/16/2024 9:45 AM SHIPPING ASSISTANT Localized scleroderma Polyarthralgia DNA ANTIBODY DS CRITHIDIA W/REFLEX TITER Routine 10/16/2024 9:45 AM SHIPPING ASSISTANT Localized scleroderma Polyarthralgia [place] BLOOD SCREEN W/REFLEX TITER Routine 10/16/2024 9:45 AM SHIPPING ASSISTANT Localized scleroderma Polyarthralgia XR FOOT RIGHT 3VW OR MORE Routine 10/02/2024 10:47 AM SHIPPING ASSISTANT Localized scleroderma Polyarthralgia XR FOOT LEFT 3VW OR MORE Routine 10/02/2024 10:47 AM SHIPPING ASSISTANT Localized scleroderma Polyarthralgia XR HAND RIGHT 3VW OR MORE Routine 10/02/2024 10:47 AM SHIPPING ASSISTANT Localized scleroderma Polyarthralgia XR HAND LEFT 3VW OR MORE Routine 10/02/2024 10:47 AM SHIPPING ASSISTANT Localized scleroderma Polyarthralgia PA NASAL ENDOSCOPY,DX Routine 10/01/2024 1:33 PM SHIPPING ASSISTANT Samter's triad (HCC) Chronic rhinosinusitis Nasal congestion Rhinitis, unspecified type ENDOSCOPY, COLON, SCREENING Routine 10/11/2020 10:30 AM SHIPPING ASSISTANT HIV-1 HIV-2 ANTIGEN/ANTIBODY Add on 07/13/2014 1:36 PM CDT from Last 3 Months or Most Recently Relevant to Health Maintenance Results * SCLEROSIS 12 ANTIBODY PNL (10/16/2024 9:45 AM SHIPPING ASSISTANT) SCL-70 <11 <11 SI [facility] Centromere protein A Antibody <11 <11 SI [facility] Centromere protein B Antibody <11 <11 SI [facility] RP11 <11 <11 [facility] RP11 <11 <11 [facility] U1 small nuclear ribonucleoprotein A Antibody <11 <11 SI [facility] U1 small nuclear ribonucleoprotein C Antibody <11 <11 SI [facility] U1 small nuclear ribonucleoprotein 70kD Antibody <11 <11 SI [facility] Fibrillarin <11 <11 [facility] TH/TO <11 <11 [facility] PM/SCL 100 <11 <11 SI [facility] PM/SCL 75 <11 <11 SI [facility] Comment: The [place] [employer] (ACR) considers anti-Scl-70 (also known as anti-topoisomerase I), anti-centromere and/or anti-RNA polymerase III antibodies part of the classification criteria for Systemic Sclerosis(SSc) given that the antibodies are present in 30%-60% of patients with SSc. Centromere protein B (CENP B) antibody positivity is found in 64-95% of patients with a limited form of cutaneous systemic sclerosis i.e. CREST syndrome. The addition of centromere protein A (CENP A) antibody to CENP B antibody improves specificity for diagnosis of SSc. Patients presenting with diffuse cutaneous systemic sclerosis (dcSSc) and features of CREST may have both centromere (A & B) antibodies and Scl-70 antibodies. RNA polymerase III antibodies target RNAP III epitopes 11 (RP11) and 155 (RP155). Anti-RP11 antibody occurs in about 10% of scleroderma patients and anti-RP155 antibodies in about 8%. Epri-W7-viTIL antibodies are associated with SSc and inflammatory myopathy overlap syndromes. Three major components of U1-snRNP are tested: U1-snRNP LINE MAINTENANCE A, U1-snRNP LINE MAINTENANCE C, U1-snRNP LGF05ic. The presence of U1-snRNP antibodies occur in 14% and 26% of Caucasians and Americans, respectively, in [place]. Anti-fibrillarin (anti-U3RNP) antibodies are specific for SSc, but are mutually exclusive from Scl-70, CENP, and RNAP III antibodies. Anti-U3RNP antibodies are detected in 4-10% of SSc patients, and when present are associated with dcSSc and frequently visceral renal and cardiac involvement. Fibrillarin antibodies are found more frequently in -[place] patients and when seen in this population, the antibodies are associated with severe pulmonary disease, pulmonary hypertension, severe small bowel involvement, and a poorer prognosis. Anti-Th/To antibodies are present in 1-13% of SSc patients, and are rarely found in other autoimmune diseases. Anti-Th/To antibodies are primarily associated with localized cutaneous systemic sclerosis (lcSSc). Anti-Th/To antibodies are also associated with pericarditis, interstitial lung disease and a high frequency of intrinsic pulmonary hypertension, and hence, a poorer prognosis. Autoantibodies to PM/Scl, the human exosome complex, are found in 4-11% of patients with SSc. PM/Scl antibodies have also been observed in polymyositis/SSc overlap syndromes and other autoimmune diseases. The majority of anti-PM/Scl reactivity is directed to one of two proteins: PM/Zob178 and/or PM/Scl75. More information can be found at https://[email or web address]/testcenter/testguide.action ?dc=CF-SystScler This test was developed and its analytical performance characteristics have been determined by [employer]. It has not been cleared or approved by FDA. This assay has been validated pursuant to the CLIA regulations and is used for clinical purposes. REPORT COMMENT: FASTING:YES Test Performed at: [employer] [address] [place] [address] NIKKI COPE MD,PHD,ILEANA Blood BLOOD SPECIMEN / Unknown 10/16/2024 9:45 AM SHIPPING ASSISTANT 10/16/2024 9:48 AM SHIPPING ASSISTANT Ryan Morris MD LAB - SEROLOGY ORDER ROMINA Performing Organization Address [facility]/ZIP Co de Phone Number [facility] [address] [place] [address] * DNA ANTIBODY DS CRITHIDIA W/REFLEX TITER (10/16/2024 9:45 AM SHIPPING ASSISTANT) dsDNA Antibody Crithidia IFA NEGATIVE NEGATIVE [facility] Comment: Test Performed at: [employer]/[facility] [address] [place] [address] NIKKI COPE MD,PHD,ILEANA Blood BLOOD SPECIMEN / Unknown 10/16/2024 9:45 AM SHIPPING ASSISTANT 10/16/2024 9:48 AM SHIPPING ASSISTANT Ryan Morris MD LAB - HEMATOLOGY ORD ERABLES Performing Organization Address [facility] Co de Phone Number [facility] [address] [place] [address] * URINALYSIS W/MICROSCOPIC NO CULTURE (10/16/2024 9:45 AM SHIPPING ASSISTANT) Color UA YELLOW YELLOW [facility] Appearance CLEAR CLEAR [facility] Specific [place] UA 1.010 1.001 - 1.035 [facility] pH UA 6.0 5.0 - 8.0 [facility] Glucose UA NEGATIVE NEGATIVE [facility] Bilirubin UA NEGATIVE NEGATIVE [facility] Ketone UA NEGATIVE NEGATIVE [facility] Blood UA NEGATIVE NEGATIVE [facility] Protein UA NEGATIVE NEGATIVE [facility] Nitrite UA NEGATIVE NEGATIVE [facility] Leukocyte UA NEGATIVE NEGATIVE [facility] WBC UA NONE SEEN < OR = 5 /HPF [facility] RBC UA NONE SEEN < OR = 2 /HPF [facility] Epithelial Cell UA 0-5 < OR = 5 /HPF [facility] Transitional Epithelial Cells [facility] Renal Epithelial Cells [facility] Bacteria UA NONE SEEN NONE SEEN /HPF [facility] Calcium Oxalate Crystals [facility] Triple Phosphate Crystals [facility] Uric Acid Crystals [facility] Amorphous UA [facility] Crystals UA [facility] Hyaline Casts NONE SEEN NONE SEEN /LPF [facility] Comment: Test Performed at: [facility] [address] [place] [address] TUCKER CULVER MD Granular Casts [facility] Casts UA [facility] Yeast [facility] Comments [facility] Note [facility] Comment: Test Performed at: [facility] [address] [place] [address] TUCKER CULVER MD Urine URINE SPECIMEN OBTAINED BY CLEAN CATCH PROCEDURE / Unknown 10/16/2024 9:45 AM SHIPPING ASSISTANT 10/16/2024 9:48 AM SHIPPING ASSISTANT Ryan Morris MD LAB - URINALYSIS ORD ERABLES Performing Organization Address [facility] de Phone Number [facility] [address] [place] [address] * CHROMATIN ANTIBODY (10/16/2024 9:45 AM SHIPPING ASSISTANT) Chromatin Nucleosomal Antibody <1.0 NEG <1.0 NEG AI [facility] Comment: Test Performed at: [facility] [address] [place] [address] TUCKER CULVER MD Blood BLOOD SPECIMEN / Unknown 10/16/2024 9:45 AM SHIPPING ASSISTANT 10/16/2024 9:48 AM SHIPPING ASSISTANT Ryan Morris MD LAB - SEROLOGY ORDER ROMINA Performing Organization Address [facility] de Phone Number [facility] [id number] [place] [address] * CARDIOLIPIN ANTIBODY IGA (10/16/2024 9:45 AM SHIPPING ASSISTANT) Cardiolipin Antibody IgA <2.0 APL-U/mL [facility] Comment: Value Interpretation ----- < 20.0 Antibody not detected > or = 20.0 Antibody detected The antiphospholipid antibody syndrome (APS) is a clinical-pathologic correlation that includes a clinical event (e.g. arterial or venous thrombosis, morbidity) and persistent positive antiphospholipid antibodies (IgM, IgG Cardiolipin or b2GPI antibodies greater than the 99th percentile; or a lupus anticoagulant). International consensus guidelines for APS suggest waiting at least 12 weeks before retesting to confirm antibody persistence. The Systemic Lupus International [facility] immunological classification criteria for systemic lupus erythematosus (SLE) include testing for isotype IgA, which has yet to be incorporated into APS criteria. Low level antiphospholipid antibodies may sometimes be detected in the setting of infection, drug therapy or aging. For additional information, please refer to http://education.Marketfish/faq/KJR497 (This link is being provided for informational/ educational purposes only.) Test Performed at: [facility] [address] [facility] [place] [address] REJI GRAYSON Blood BLOOD SPECIMEN / Unknown 10/16/2024 9:45 AM SHIPPING ASSISTANT 10/16/2024 9:48 AM SHIPPING ASSISTANT Ryan Morris MD LAB - SEROLOGY ORDER ROMINA Performing Organization Address [facility] de Phone Number [facility] [address] [place] [address] * CARDIOLIPIN ANTIBODY IGM (10/16/2024 9:45 AM SHIPPING ASSISTANT) Pathologist [facility] Cardiolipin Antibody IgM <2.0 MPL-U/mL [facility] Comment: Value Interpretation ----- < 20.0 Antibody not detected > or = 20.0 Antibody detected The antiphospholipid antibody syndrome (APS) is a clinical-pathologic correlation that includes a clinical event (e.g. arterial or venous thrombosis, morbidity) and persistent positive antiphospholipid antibodies (IgM, IgG Cardiolipin or b2GPI antibodies greater than the 99th percentile; or a lupus anticoagulant). International consensus guidelines for APS suggest waiting at least 12 weeks before retesting to confirm antibody persistence. The Systemic Lupus International [facility] immunological classification criteria for systemic lupus erythematosus (SLE) include testing for isotype IgA, which has yet to be incorporated into APS criteria. Low level antiphospholipid antibodies may sometimes be detected in the setting of infection, drug therapy or aging. For additional information, please refer to http://education.Marketfish/faq/OGE179 (This link is being provided for informational/ educational purposes only.) Test Performed at: [employer] [address] [facility] [place] [address] REJI GRAYSON Blood BLOOD SPECIMEN / Unknown 10/16/2024 9:45 AM SHIPPING ASSISTANT 10/16/2024 9:48 AM SHIPPING ASSISTANT Ryan Morris MD LAB - SEROLOGY ORDER ROMINA Performing Organization Address [facility] Co de Phone Number [facility] [address] [place] [address] * CARDIOLIPIN ANTIBODY IGG (10/16/2024 9:45 AM SHIPPING ASSISTANT) Cardiolipin Antibody IgG <2.0 GPL-U/mL [facility] Comment: Value Interpretation ----- < 20.0 Antibody not detected > or = 20.0 Antibody detected The antiphospholipid antibody syndrome (APS) is a clinical-pathologic correlation that includes a clinical event (e.g. arterial or venous thrombosis, morbidity) and persistent positive antiphospholipid antibodies (IgM, IgG Cardiolipin or b2GPI antibodies greater than the 99th percentile; or a lupus anticoagulant). International consensus guidelines for APS suggest waiting at least 12 weeks before retesting to confirm antibody persistence. The Systemic Lupus International Collabor[facility] immunological classification criteria for systemic lupus erythematosus (SLE) include testing for isotype IgA, which has yet to be incorporated into APS criteria. Low level antiphospholipid antibodies may sometimes be detected in the setting of infection, drug therapy or aging. For additional information, please refer to http://education.Marketfish/faq/DEU745 (This link is being provided for informational/ educational purposes only.) Test Performed at: [facility] [facility] [address] [address] REJI GRAYSON Blood BLOOD SPECIMEN / Unknown 10/16/2024 9:45 AM SHIPPING ASSISTANT 10/16/2024 9:48 AM SHIPPING ASSISTANT Ryan Morris MD LAB - SEROLOGY ORDER ROMINA [facility] [address] [place] [address] * BETA-2 GLYCOPROTEIN 1 ANTIBODY IGG/IGM/IGA PANEL (10/16/2024 9:45 AM SHIPPING ASSISTANT) Beta-2 Glycoprotein I Antibody IgG <2.0 <20.0 U/mL [facility] Comment: Value Interpretation ----- < 20.0 Antibody not detected > or = 20.0 Antibody detected Beta-2 Glycoprotein I Antibody IgM <2.0 <20.0 U/mL [facility] Comment: Value Interpretation ----- < 20.0 Antibody not detected > or = 20.0 Antibody detected Beta-2 Glycoprotein I Antibody IgA <2.0 <20.0 U/mL [facility] Comment: Value Interpretation ----- < 20.0 Antibody not detected > or = 20.0 Antibody detected The antiphospholipid antibody syndrome (APS) is a clinical-pathologic correlation that includes a clinical event (e.g. arterial or venous thrombosis, morbidity) and persistent positive antiphospholipid antibodies (IgM, IgG Cardiolipin or b2GPI antibodies greater than the 99th percentile; or a lupus anticoagulant). International consensus guidelines for APS suggest waiting at least 12 weeks before retesting to confirm antibody persistence. The Systemic Lupus International Collabor[facility] immunological classification criteria for systemic lupus erythematosus (SLE) include testing for isotype IgA, which has yet to be incorporated into APS criteria. Low level antiphospholipid antibodies may sometimes be detected in the setting of infection, drug therapy or aging. For additional information, please refer to http://education.Marketfish/faq/KPD252 (This link is being provided for informational/ educational purposes only.) Test Performed at: [facility]/[address] KHUSHBU VILLAGRAN MD,PHD Blood BLOOD SPECIMEN / Unknown 10/16/2024 9:45 AM SHIPPING ASSISTANT 10/16/2024 9:48 AM SHIPPING ASSISTANT Ryan Morris MD LAB - SEROLOGY ORDER ROMINA [facility] [address] [place] [address] * MCCULLOUGH (SM) ANTIBODY LEO (10/16/2024 9:45 AM SHIPPING ASSISTANT) SM Antibody <1.0 NEG <1.0 NEG AI [facility] Comment: Test Performed at: [facility] [address] [place] [address] TUCKER CULVER MD Blood BLOOD SPECIMEN / Unknown 10/16/2024 9:45 AM SHIPPING ASSISTANT 10/16/2024 9:48 AM SHIPPING ASSISTANT Ryan Morris MD LAB - CHEMISTRY MINESH HAMILTON Performing Organization Address [facility] de Phone Number [address] [address] * LINE MAINTENANCE ANTIBODY (10/16/2024 9:45 AM SHIPPING ASSISTANT) LINE MAINTENANCE Antibody <1.0 NEG <1.0 NEG AI [facility] Comment: Test Performed at: [facility] [place] [address] TUCKER CULVER MD Blood BLOOD SPECIMEN / Unknown 10/16/2024 9:45 AM SHIPPING ASSISTANT 10/16/2024 9:48 AM SHIPPING ASSISTANT Ryan Morris MD LAB - CHEMISTRY MINESH HAMILTON Performing Organization Address [facility] de Phone Number [address] [address] * RHEUMATOID FACTOR BLOOD QUANTITATIVE (10/16/2024 9:45 AM SHIPPING ASSISTANT) Rheumatoid Factor <10 <14 IU/mL [facility] Comment: Test Performed at: [facility] [place] [address] [place] [address] TUCKER CULVER MD Blood BLOOD SPECIMEN / Unknown 10/16/2024 9:45 AM SHIPPING ASSISTANT 10/16/2024 9:48 AM SHIPPING ASSISTANT Ryan Morris MD LAB - CHEMISTRY MINESH HAMILTON Performing Organization Address [facility] de Phone Number [facility] [id number] [place] [address] * C-REACTIVE PROTEIN (10/16/2024 9:45 AM SHIPPING ASSISTANT) C-Reactive Protein 6.6 <8.0 mg/L [facility] Comment: Test Performed at: [facility] [place] [address] TUCKER CULVER MD Blood BLOOD SPECIMEN / Unknown 10/16/2024 9:45 AM SHIPPING ASSISTANT 10/16/2024 9:48 AM SHIPPING ASSISTANT Ryan Morris MD LAB - CHEMISTRY MINESH MARKJACKIE Performing Organization Address [facility] Co de Phone Number [facility] [id number] [place] [address] * (ABNORMAL) [place] BLOOD TITER (10/16/2024 9:45 AM SHIPPING ASSISTANT) [place] 1:80(H) titer [facility] Comment: A low level [place] titer may be present in pre-clinical autoimmune diseases and normal individuals. Reference Range <1:40 Negative 1:40-1:80 Low Antibody Level >1:80 Elevated Antibody Level [place] Pattern Nuclear, Homogeneou s(A) [facility] Comment: Homogeneous pattern is associated with systemic lupus erythematosus (SLE), drug-induced lupus and juvenile idiopathic arthritis. AC-1: Homogeneous International Consensus on [place] Patterns (https://doi.org/10.1515/rhhz-4072-9015) Test Performed at: [place] [address] TUCKER CULVER MD 10/16/2024 9:45 AM SHIPPING ASSISTANT 10/16/2024 9:48 AM SHIPPING ASSISTANT Ryan Morris MD LAB - CHEMISTRY MINESH HAMITLON Performing Organization Address [facility] de Phone Number [facility] [address] [place] [address] * (ABNORMAL) [place] BLOOD SCREEN W/REFLEX TITER (10/16/2024 9:45 AM SHIPPING ASSISTANT) [place] Screen POSITIVE( A) NEGATIVE [facility] Comment: [place] IFA is a first line screen for detecting the presence of up to approximately 150 autoantibodies in various autoimmune diseases. A positive [place] IFA result is suggestive of autoimmune disease and reflexes to titer and pattern. Further laboratory testing may be considered if clinically indicated. For additional information, please refer to http://education.CoSM[employer] Company/faq/AVH373 (This link is being provided for informational/ educational purposes only.) Test Performed at: [facility] [address] [employer] [address] TUCKER CULVER MD Blood BLOOD SPECIMEN / Unknown 10/16/2024 9:45 AM SHIPPING ASSISTANT 10/16/2024 9:48 AM SHIPPING ASSISTANT Ryan Morris MD LAB - CHEMISTRY MINESH HAMILTON Performing Organization Address [facility] Co de Phone Number [facility] [address] [place] [address] * RIBOSOMAL P PROTEIN ANTIBODY (10/16/2024 9:45 AM SHIPPING ASSISTANT) Ribosomal P Protein Antibody <1.0 NEG <1.0 NEG AI [facility] Comment: Test Performed at: [facility] [place] [address] TUCKER CULVER MD Blood BLOOD SPECIMEN / Unknown 10/16/2024 9:45 AM SHIPPING ASSISTANT 10/16/2024 9:48 AM SHIPPING ASSISTANT Ryan Morris MD LAB - CHEMISTRY MINESH HAMILTON Performing Organization Address [facility] de Phone Number [facility] [phone] [place] [address] * (ABNORMAL) HISTONE ANTIBODY (10/16/2024 9:45 AM SHIPPING ASSISTANT) Histone Antibodies 1.6(H) U [facility] Comment: Value Explanation of Results ------ <1.0 Negative 1.0-1.5 Weak Positive 1.6-2.5 Moderate Positive >2.5 Strong Positive REPORT COMMENT: FASTING:YES Test Performed at: [facility] [address] [address] REJI GRAYSON Blood BLOOD SPECIMEN / Unknown 10/16/2024 9:45 AM SHIPPING ASSISTANT 10/16/2024 9:48 AM SHIPPING ASSISTANT Ryan Morris MD LAB - CHEMISTRY MINESH HAMILTON Performing Organization Address [facility] Co de Phone Number [facility] [address] [place] [address] * (ABNORMAL) COMPLEMENT TOTAL (10/16/2024 9:45 AM SHIPPING ASSISTANT) Complement Total CH50 >60(H) 31 - 60 U/mL [facility] Comment: Test Performed at: [facility] [address] [facility] [address] TUCKER CULVER MD Blood BLOOD SPECIMEN / Unknown 10/16/2024 9:45 AM SHIPPING ASSISTANT 10/16/2024 9:48 AM SHIPPING ASSISTANT Ryan Morris MD LAB - CHEMISTRY MINESH HAMILTON Performing Organization Address [facility] Co de Phone Number [facility] [phone] [place] [address] * SS-B (SJOGREN'S) ANTIBODY (10/16/2024 9:45 AM SHIPPING ASSISTANT) Sjogren's Antibodies (SSB) <1.0 NEG <1.0 NEG AI [facility] Comment: Test Performed at: [facility] [facility] [place] [address] TUCKER CULVER MD Blood BLOOD SPECIMEN / Unknown 10/16/2024 9:45 AM SHIPPING ASSISTANT 10/16/2024 9:48 AM SHIPPING ASSISTANT Ryan Morris MD LAB - CHEMISTRY MINESH HAMILTON Performing Organization Address [facility] Co de Phone Number [facility] [address] [place] [address] * SS-A (SJOGREN'S) ANTIBODY (10/16/2024 9:45 AM SHIPPING ASSISTANT) Sjogren's Antibodies (SSA) <1.0 NEG <1.0 NEG AI [facility] Comment: Test Performed at: [employer] [facility] [place] [address] TUCKER CULVER MD Blood BLOOD SPECIMEN / Unknown 10/16/2024 9:45 AM SHIPPING ASSISTANT 10/16/2024 9:48 AM SHIPPING ASSISTANT Ryan Morris MD LAB - CHEMISTRY MINESH HAMILTON Performing Organization Address [facility] Co de Phone Number [facility] [address] [place] [address] * DNA ANTIBODY DOUBLE STRANDED (10/16/2024 9:45 AM SHIPPING ASSISTANT) dsDNA Antibody <1 IU/mL [facility] Comment: IU/mL Interpretation < or = 4 Negative 5-9 Indeterminate > or = 10 Positive Test Performed at: [facility] [facility] [place] [address] TUCKER CULVER MD Blood BLOOD SPECIMEN / Unknown 10/16/2024 9:45 AM SHIPPING ASSISTANT 10/16/2024 9:48 AM SHIPPING ASSISTANT Ryan Morris MD LAB - HEMATOLOGY ORD ERABLES Performing Organization Address [facility] Co de Phone Number [facility] [phone] [place] [address] * HINA-1 ANTIBODY (10/16/2024 9:45 AM SHIPPING ASSISTANT) Hina-1 Antibody <1.0 NEG <1.0 NEG AI [facility] Comment: Test Performed at: [employer] [facility] [place] [address] TUCKER CULVER MD Blood BLOOD SPECIMEN / Unknown 10/16/2024 9:45 AM SHIPPING ASSISTANT 10/16/2024 9:48 AM SHIPPING ASSISTANT Ryan Morris MD LAB - CHEMISTRY MINESH HAMILTON Performing Organization Address [facility] de Phone Number [facility] [address] [place] [address] * ALDOLASE (10/16/2024 9:45 AM SHIPPING ASSISTANT) Aldolase 4.1 < OR = 8.1 U/L [facility] Comment: REPORT COMMENT: FASTING:YES Test Performed at: [employer] [facility] [place] [address] TUCKER CULVER MD Blood BLOOD SPECIMEN / Unknown 10/16/2024 9:45 AM SHIPPING ASSISTANT 10/16/2024 9:48 AM SHIPPING ASSISTANT Ryan Morris MD LAB - CHEMISTRY MINESH HAMILTON Performing Organization Address [facility] de Phone Number [facility] [address] [place] [address] * (ABNORMAL) ERYTHROCYTE SEDIMENTATION RATE (10/16/2024 9:45 AM SHIPPING ASSISTANT) Erythrocyte Sedimentation Rate Westergren 39(H) < OR = 30 mm/h [facility] Comment: Test Performed at: [facility] [address] [facility] [place] [address] TUCKER CULVER MD Blood BLOOD SPECIMEN / Unknown 10/16/2024 9:45 AM SHIPPING ASSISTANT 10/16/2024 9:48 AM SHIPPING ASSISTANT Ryan Morris MD LAB - HEMATOLOGY ORD ERABLES [facility] [address] [place] [address] * (ABNORMAL) CBC WITH DIFFERENTIAL (10/16/2024 9:45 AM SHIPPING ASSISTANT) [facility] White Blood Cell Count 7.6 3.8 - 10.8 Thousand/u L [facility] RBC 4.50 3.80 - 5.10 Million/uL [facility] Hemoglobin 13.1 11.7 - 15.5 g/dL [facility] Hematocrit 40.9 35.0 - 45.0 % [facility] MCV 90.9 80.0 - 100.0 fL [facility] MCH 29.1 27.0 - 33.0 pg [facility] MCHC 32.0 32.0 - 36.0 g/dL [facility] Comment: For adults, a slight decrease in the calculated MCHC value (in the range of 30 to 32 g/dL) is most likely not clinically significant; however, it should be interpreted with caution in correlation with other red cell parameters and the patient's clinical condition. RDW 13.9 11.0 - 15.0 % [facility] Platelet Count 413(H) 140 - 400 Thousand/u L [facility] MPV 10.3 7.5 - 12.5 fL [facility] Neutrophil Absolute 3808 1500 - 7800 cells/uL [facility] Lymphocytes Absolute 2212 850 - 3900 cells/uL [facility] Absolute Monocytes 707 200 - 950 cells/uL [facility] Eosinophils Absolute 798(H) 15 - 500 cells/uL [facility] Basophils Absolute 76 0 - 200 cells/uL [facility] Granulocytes % 50.1 % [facility] Lymphocytes % 29.1 % [facility] Monocytes % 9.3 % [facility] Eosinophils % 10.5 % [facility] Basophils % 1.0 % [facility] Comment: Test Performed at: [facility] [id number] [facility] [address] TUCKER CULVER MD Blood BLOOD SPECIMEN / Unknown 10/16/2024 9:45 AM SHIPPING ASSISTANT 10/16/2024 9:48 AM SHIPPING ASSISTANT Ryan Morris MD LAB - HEMATOLOGY ORD ERABLES Performing Organization Address [facility]/ZIP Co de Phone Number [facility] [address] [place] [address] * COMPLEMENT C4 (10/16/2024 9:45 AM SHIPPING ASSISTANT) Complement C4 42 15 - 57 mg/dL [facility] Comment: Test Performed at: [facility] [id number] [place] [address] TUCKER CULVER MD Blood BLOOD SPECIMEN / Unknown 10/16/2024 9:45 AM SHIPPING ASSISTANT 10/16/2024 9:48 AM SHIPPING ASSISTANT Ryan Morris MD LAB - SEROLOGY ORDER ROMINA Performing Organization Address [facility] Co de Phone Number [facility] [address] [place] [address] * (ABNORMAL) COMPREHENSIVE METABOLIC PANEL (10/16/2024 9:45 AM SHIPPING ASSISTANT) Glucose 101(H) 65 - 99 mg/dL [facility] Comment: Fasting reference interval For someone without known diabetes, a glucose value between 100 and 125 mg/dL is consistent with prediabetes and should be confirmed with a follow-up test. BUN 11 7 - 25 mg/dL [facility] Creatinine 0.77 0.50 - 1.03 mg/dL [facility] eGFR by Cystatin C 91 > OR = 60 mL/min/1. 73m2 [facility] BUN/Creatinine Ratio SEE NOTE: 6 - 22 (calc) [facility] Comment: Not Reported: BUN and Creatinine are within reference range. Sodium 138 135 - 146 mmol/L [facility] Potassium 4.0 3.5 - 5.3 mmol/L [facility] Chloride 103 98 - 110 mmol/L [facility] CO2 23 20 - 32 mmol/L [facility] Calcium 9.8 8.6 - 10.4 mg/dL [facility] Protein Total 7.8 6.1 - 8.1 g/dL [facility] Albumin 4.7 3.6 - 5.1 g/dL [facility] Globulin Total 3.1 1.9 - 3.7 g/dL (calc) [facility] Albumin/Globulin Ratio 1.5 1.0 - 2.5 (calc) [facility] Bilirubin Total 0.4 0.2 - 1.2 mg/dL [facility] Alkaline Phosphatase 82 37 - 153 U/L [facility] AST 16 10 - 35 U/L [facility] ALT 15 6 - 29 U/L [facility] Comment: Test Performed at: [facility] [facility] [address] TUCKER CULVER MD Blood BLOOD SPECIMEN / Unknown 10/16/2024 9:45 AM SHIPPING ASSISTANT 10/16/2024 9:48 AM SHIPPING ASSISTANT Ryan Morris MD LAB - CHEMISTRY MINESH [place] Performing Organization Address [facility] [place] [address] * CK BLOOD (10/16/2024 9:45 AM SHIPPING ASSISTANT) CK 69 29 - 143 U/L [facility] Comment: Test Performed at: [facility] [facility] [place] [address] TUCKER CULVER MD Blood BLOOD SPECIMEN / Unknown 10/16/2024 9:45 AM SHIPPING ASSISTANT 10/16/2024 9:48 AM SHIPPING ASSISTANT Ryan Morris MD LAB - CHEMISTRY MINESH HAMIL[place] Performing Organization Address [facility] [place] [address] * (ABNORMAL) IMMUNOGLOBULINS IGG/IGM/IGA PANEL (10/16/2024 9:45 AM SHIPPING ASSISTANT) IgA 110 47 - 310 mg/dL [facility] IgG 1395 600 - 1640 mg/dL [facility] IgM 29(L) 50 - 300 mg/dL [facility] Comment: Test Performed at: [employer] [facility] [place] [address] TUCKER CULVER MD Blood BLOOD SPECIMEN / Unknown 10/16/2024 9:45 AM SHIPPING ASSISTANT 10/16/2024 9:48 AM SHIPPING ASSISTANT Ryan Morris MD LAB - CHEMISTRY MINESH [place]AMIL[place] Performing Organization Address [facility]/ZIP Co de Phone Number [facility] [address] [place] [address] * (ABNORMAL) COMPLEMENT C3 (10/16/2024 9:45 AM SHIPPING ASSISTANT) Complement C3 208(H) 83 - 193 mg/dL [facility] Comment: Test Performed at: [employer] [facility] [employer] [address] [place] [address] TUCKER CULVER MD Blood BLOOD SPECIMEN / Unknown 10/16/2024 9:45 AM SHIPPING ASSISTANT 10/16/2024 9:48 AM SHIPPING ASSISTANT Ryan Morris MD LAB - CHEMISTRY MINESH [place] Performing Organization Address [facility] Co de Phone Number [facility] [address] [place] [address] * XR Foot Right 3Vw or More (10/02/2024 10:47 AM SHIPPING ASSISTANT) Anatomical Region Laterality Modality Ankle / Foot Digital Radiogra phy 10/02/2024 10:5 0 AM SHIPPING ASSISTANT Impressions 10/02/2024 11:11 AM SHIPPING ASSISTANT IMPRESSION: Right hand: Normal Left hand: Normal Right foot: 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 Left foot: No evidence of arthritis. Report dictated by Jose Shrestha MD (interventional radiology technologist). I, Ayden Heard MD have personally reviewed and interpreted this examination/study. 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 FINDINGS: Right hand: The osseous structures are intact and well aligned without acute fracture or dislocation. The joint spaces are preserved. Bone density and texture are normal. No soft tissue swelling is present. Left hand: The osseous structures are intact and well aligned without acute fracture or dislocation. The joint spaces are preserved. Bone density and texture are normal. No soft tissue swelling is present. Right foot: There is no acute fracture or dislocation. 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 There are small plantar and posterior calcaneal spurs. Bone density and texture are normal. No soft tissue swelling is present. Left foot: Partial visualization of internal fixation hardware of the distal fibula and medial malleolus. There is no acute fracture or dislocation. There is chronic deformity at the first and fifth metatarsals likely reflecting osteotomies. The joint spaces are preserved. There are small plantar and posterior calcaneal spurs. Bone density and texture are normal. No soft tissue swelling is present. 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 FINDINGS: Right hand: The osseous structures are intact and well aligned without acutefracture or dislocation. The joint spaces are preserved. Bone density and texture are normal. No soft tissue swelling is present. Left hand: The osseous structures are intact and well aligned without acutefracture or dislocation. The joint spaces are preserved. Bone density and texture are normal. No soft tissue swelling is present. Right foot: There is no acute fracture or dislocation. 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 There are small plantar and posterior calcaneal spurs. Bone density and texture are normal. No soft tissue swelling is present. Left foot: Partial visualization of internal fixation hardware of the distal fibula and medial malleolus. There is no acute fracture or dislocation. There is chronic deformity at the first and fifth metatarsals likely reflecting osteotomies. The joint spaces are preserved. There are small plantar and posterior calcaneal spurs. Bone density and texture are normal. No soft tissue swelling is present. IMPRESSION: Right hand: Normal Left hand: Normal Right foot: Minimal osteoarthritis of the first metatarsophalangealjoint. Left foot: No evidence of arthritis. Report dictated by Jose Shrestha MD (interventional radiology technologist). Ayden Webb MD have personally reviewed and interpreted this examination/study. 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 Left foot: No evidence of arthritis. Report dictated by Jose Shrestha MD (interventional radiology technologist). Ayden Webb MD have personally reviewed and interpreted this examination/study. 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 FINDINGS: Right hand: The osseous structures are intact and well aligned without acute fracture or dislocation. The joint spaces are preserved. Bone density and texture are normal. No soft tissue swelling is present. Left hand: The osseous structures are intact and well aligned without acute fracture or dislocation. The joint spaces are preserved. Bone density and texture are normal. No soft tissue swelling is present. Right foot: There is no acute fracture or dislocation. 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 There are small plantar and posterior calcaneal spurs. Bone density and texture are normal. No soft tissue swelling is present. Left foot: Partial visualization of internal fixation hardware of the distal fibula and medial malleolus. There is no acute fracture or dislocation. There is chronic deformity at the first and fifth metatarsals likely reflecting osteotomies. The joint spaces are preserved. There are small plantar and posterior calcaneal spurs. Bone density and texture are normal. No soft tissue swelling is present. 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 FINDINGS: Right hand: The osseous structures are intact and well aligned without acutefracture or dislocation. The joint spaces are preserved. Bone density and texture are normal. No soft tissue swelling is present. Left hand: The osseous structures are intact and well aligned without acutefracture or dislocation. The joint spaces are preserved. Bone density and texture are normal. No soft tissue swelling is present. Right foot: There is no acute fracture or dislocation. 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 There are small plantar and posterior calcaneal spurs. Bone density and texture are normal. No soft tissue swelling is present. Left foot: Partial visualization of internal fixation hardware of the distal fibula and medial malleolus. There is no acute fracture or dislocation. There is chronic deformity at the first and fifth metatarsals likely reflecting osteotomies. The joint spaces are preserved. There are small plantar and posterior calcaneal spurs. Bone density and texture are normal. No soft tissue swelling is present. IMPRESSION: Right hand: Normal Left hand: Normal Right foot: Minimal osteoarthritis of the first metatarsophalangealjoint. Left foot: No evidence of arthritis. Report dictated by Jose Shrestha MD (interventional radiology technologist). Ayden Webb MD have personally reviewed and interpreted this examination/study. 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 Left foot: No evidence of arthritis. Report dictated by Jose Shrestha MD (interventional radiology technologist). Ayden Webb MD have personally reviewed and interpreted this examination/study. 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 FINDINGS: Right hand: The osseous structures are intact and well aligned without acute fracture or dislocation. The joint spaces are preserved. Bone density and texture are normal. No soft tissue swelling is present. Left hand: The osseous structures are intact and well aligned without acute fracture or dislocation. The joint spaces are preserved. Bone density and texture are normal. No soft tissue swelling is present. Right foot: There is no acute fracture or dislocation. 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 There are small plantar and posterior calcaneal spurs. Bone density and texture are normal. No soft tissue swelling is present. Left foot: Partial visualization of internal fixation hardware of the distal fibula and medial malleolus. There is no acute fracture or dislocation. There is chronic deformity at the first and fifth metatarsals likely reflecting osteotomies. The joint spaces are preserved. There are small plantar and posterior calcaneal spurs. Bone density and texture are normal. No soft tissue swelling is present. 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 FINDINGS: Right hand: The osseous structures are intact and well aligned without acutefracture or dislocation. The joint spaces are preserved. Bone density and texture are normal. No soft tissue swelling is present. Left hand: The osseous structures are intact and well aligned without acutefracture or dislocation. The joint spaces are preserved. Bone density and texture are normal. No soft tissue swelling is present. Right foot: There is no acute fracture or dislocation. 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 There are small plantar and posterior calcaneal spurs. Bone density and texture are normal. No soft tissue swelling is present. Left foot: Partial visualization of internal fixation hardware of the distal fibula and medial malleolus. There is no acute fracture or dislocation. There is chronic deformity at the first and fifth metatarsals likely reflecting osteotomies. The joint spaces are preserved. There are small plantar and posterior calcaneal spurs. Bone density and texture are normal. No soft tissue swelling is present. IMPRESSION: Right hand: Normal Left hand: Normal Right foot: Minimal osteoarthritis of the first metatarsophalangealjoint. Left foot: No evidence of arthritis. Report dictated by Jose Shrestha MD (interventional radiology technologist). Ayden Webb MD have personally reviewed and interpreted this examination/study. 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 Left foot: No evidence of arthritis. Report dictated by Jose Shrestha MD (interventional radiology technologist). Ayden Webb MD have personally reviewed and interpreted this examination/study. 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 FINDINGS: Right hand: The osseous structures are intact and well aligned without acute fracture or dislocation. The joint spaces are preserved. Bone density and texture are normal. No soft tissue swelling is present. Left hand: The osseous structures are intact and well aligned without acute fracture or dislocation. The joint spaces are preserved. Bone density and texture are normal. No soft tissue swelling is present. Right foot: There is no acute fracture or dislocation. 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 There are small plantar and posterior calcaneal spurs. Bone density and texture are normal. No soft tissue swelling is present. Left foot: Partial visualization of internal fixation hardware of the distal fibula and medial malleolus. There is no acute fracture or dislocation. There is chronic deformity at the first and fifth metatarsals likely reflecting osteotomies. The joint spaces are preserved. There are small plantar and posterior calcaneal spurs. Bone density and texture are normal. No soft tissue swelling is present. 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 FINDINGS: Right hand: The osseous structures are intact and well aligned without acutefracture or dislocation. The joint spaces are preserved. Bone density and texture are normal. No soft tissue swelling is present. Left hand: The osseous structures are intact and well aligned without acutefracture or dislocation. The joint spaces are preserved. Bone density and texture are normal. No soft tissue swelling is present. Right foot: There is no acute fracture or dislocation. 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 There are small plantar and posterior calcaneal spurs. Bone density and texture are normal. No soft tissue swelling is present. Left foot: Partial visualization of internal fixation hardware of the distal fibula and medial malleolus. There is no acute fracture or dislocation. There is chronic deformity at the first and fifth metatarsals likely reflecting osteotomies. The joint spaces are preserved. There are small plantar and posterior calcaneal spurs. Bone density and texture are normal. No soft tissue swelling is present. IMPRESSION: Right hand: Normal Left hand: Normal Right foot: Minimal osteoarthritis of the first metatarsophalangealjoint. Left foot: No evidence of arthritis. Report dictated by Jose Shrestha MD (interventional radiology technologist). I, Ayden Heard MD have personally reviewed and interpreted this examination/study. > Interpreting Provider: Ayden Heard MD on 10/02/2024 11:11 AM Ryan Morris MD DIAGNOSTIC IMAGING O RDERABLES * PA NASAL ENDOSCOPY,DX (10/01/2024 1:33 PM SHIPPING ASSISTANT) Narrative Mark Kwong MD - 10/01/2024 1:33 PM SHIPPING ASSISTANT Mark Kwong MD 10/02/2024 9:20 AM Procedure: Rigid Nasal Endoscopy Anesthesia: Bilateral Nasal Cavities sprayed with lidocaine and Neosynephrine Detail: Rigid nasal endoscopy performed bilaterally. We bilaterally visualized the interior nasal cavity, entire septum, inferior, middle and superior turbinates, middle meatus, superior meatus, sphenoethmoidal recess and the nasopharynx. Unless mentioned below these structures were normal. Removed crusting and thick secretions with suctions worst in left middle meatus. Was then able to visualize widely patent [place] cavity. The secretions on both sides were most consistent in appearance with dried out allergic mucin. I was able to visualize into all 4 sinuses on both sides after removing the debris. The mucosa appears decent with no severe polyposis. There is swollen inferior turbinates bilaterally. Patient tolerated well. Dr. Angeles was present for the entire procedure. Gerardo Angeles MD PROCEDURE/MINOR VINITA GICAL ORDERABLES * ENDOSCOPY, COLON, SCREENING (10/11/2020 10:30 AM SHIPPING ASSISTANT) Report Endoscopy POC Endoscopy Department Report _ Patient Name: Tracey Lambert Procedure Date: 10/11/2020 10:30 AM Date of : 1970 Classification: Outpatient Gender: Female Ethnicity: Not or Race: White _ Providers: Humza Wiley MD, Frederick Patel (Fellow) Referring MD: Val Huber MD; Minna Wang MD; Scarlet Osorio MD; Graciela Artis MD Procedure: Colonoscopy Indications: Screening for colorectal malignant neoplasm Medications: See the Anesthesia note for documentation of the administered medications Patient Profile: 50F w/ last Cscope 11/2019 revealing tortuous colon w/ signifcant narrowing around rectosigmoid and sharp splenic angle in s/o diverticulosis s/p failed exam completion x2 s/p sigmoidectomy 03/2020, otherwise PMH includes 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 Here for Cscope. Description of Procedure: Pre-Anesthesia Assessment: Prior to the procedure, a History and Physical was performed, and patient medications and allergies were reviewed. The patient's tolerance of previous anesthesia was also reviewed. The risks and benefits of the procedure and the sedation options and risks were discussed with the patient. All questions were answered, and informed consent was obtained. Prior Anticoagulants: The patient has taken no previous anticoagulant or antiplatelet agents. ASA Grade Assessment: III - A patient with severe systemic disease. After reviewing the risks and benefits, the patient was deemed in satisfactory condition to undergo the procedure. After I obtained informed consent, the scope was passed under direct vision. Throughout the procedure, the patient's blood pressure, pulse, and oxygen saturations were monitored continuously. The [id number] was introduced through the anus and advanced to the cecum, identified by appendiceal orifice and ileocecal valve. The colonoscopy was performed without difficulty. The patient tolerated the procedure well. The ileocecal valve, appendiceal orifice, and rectum were photographed. The quality of the bowel preparation was evaluated using the BBPS ([place] Bowel Preparation Scale) with scores of: Right Colon = 2 (minor amount of residual staining, small fragments of stool and/or opaque liquid, but mucosa seen well), Transverse Colon = 3 (entire mucosa seen well with no residual staining, small fragments of stool or opaque liquid) and Left Colon = 3 (entire mucosa seen well with no residual staining, small fragments of stool or opaque liquid). The total BBPS score equals 8. The quality of the bowel preparation was good. Findings: The perianal and digital rectal examinations were normal. The retroflexed view of the distal rectum was normal. Two diminutive hyperplastic-appea ring sessile polyps were found in the recto-sigmoid colon. The polyps were 2 mm in size each. The polyps were removed with a jumbo cold forceps for histology. Resection and retrieval were complete. There was evidence of a prior end-to-end colo-colonic anastomosis corresponding to a previous sigmoidectomy. The surgical anastomosis was widely patent and was characterized by healthy appearing mucosa with few visible surgical cary. The anastomosis was traversed without resistance. The remainder of the colonic exam was otherwise without abnormality through to the cecum. Estimated Blood Loss: Estimated blood loss: None. Complications: No immediate complications. Impression: - Two diminutive (2 mm) hyperplastic-appea ring sessile polyps in recto-sigmoid colon, removed with a jumbo cold forceps. Resected and retrieved. - Healthy appearing widely patent end-to-end colo-colonic anastomosis corresponding to previous sigmoidectomy. - Otherwise normal examination of the colon through to the cecum. Moderate Sedation: MAC Recommendation: - Resume previous diet. - Continue present medications. - Await pathology results. - Repeat colonoscopy timing to be determined based on pathology results. - Follow-up in GI clinic with referring providers. - Patient has a contact number available for emergencies. The signs and symptoms of potential delayed complications were discussed with the patient. Return to normal activities tomorrow. Written discharge instructions were provided to the patient. Attending Participation: I was present and participated during the entire procedure, including non-gray portions. Procedure Code(s): --- Professional --- 92407, Colonoscopy, flexible; with biopsy, single or multiple Diagnosis Code(s): --- Professional --- Z12.11, Encounter for screening for malignant neoplasm of colon K63.5, Polyp of colon Z98.0, Intestinal bypass and anastomosis status CPT copyright 2019 [employer]. All rights reserved. The codes documented in this report are preliminary and upon opener tender review may be revised to meet current compliance requirements. Humza Wiley MD 10/11/2020 11:33:23 AM Note Initiated On: 10/11/2020 10:30 AM Number of Addenda: [address] 10/11/2020 10:3 0 AM SHIPPING ASSISTANT Humza Wiley MD GI PROCEDURE ORDERABLES Performing Organization Address [facility] Co de Phone Number [facility] * HIV-1 HIV-2 ANTIGEN/ANTIBODY (07/13/2014 1:36 PM CDT) HIV Antigen/Antibod y 1 & 2 Non-reacti ve Non-react mario [facility] Comment: Neither HIV-1 p24 Antigen nor HIV-1/HIV-2 Antibodies are detected. Blood specimen (specimen) BLOOD SPECIMEN / Unknown 07/13/2014 1:36 PM CDT 07/13/2014 1:43 PM CDT James Calderon MD LAB - HEMATOLOGY OR DERABLES Performing Organization Address City/[facility]/ZIP Co de Phone Number [address] [phone] from Last 3 Months or Most Recently Relevant to Health Maintenance Advance Directives * Full Code (Latest Code Status on File) Date Activated Date Inactivated Comments 05/18/2023 3:07 PM 05/19/2023 8:46 PM * Full Code Date Activated Date Inactivated Comments 01/25/2021 7:00 PM 02/01/2021 3:50 PM * Full Code Date Activated Date Inactivated Comments 04/09/2020 4:32 PM 04/12/2020 1:28 PM * Full Code Date Activated Date Inactivated Comments 09/15/2018 11:50 AM 09/16/2018 3:31 PM Care Teams Transition Program Manager Relationship Specialty Start Date End Date Theodore Zamora DO [address] [place] [address] PCP - General Family Medicine Geriatric Medicine 04/11/23 Gerardo Angeles MD Otolaryngology 07/16/19 Reji Piper MD Otolaryngology 07/16/19 Ruby Manzano MD Dermatology 07/16/19 Stanley Quezada MD [address] [address] Allergy and Immunology 07/16/19
--- OUTSIDE RECORDS SUMMARY | 2024-12-14 13:20 | XMS_ITS | Encounter Summary ---
Author Organization [facility] Address [address] [facility] [place] [address] Care Team Providers Care Kitchen Aide Name Role Phone Gerardo Angeles MD Unavailable [phone] Edgar Piper MD Unavailable Ruby Manzano MD Unavailable Unavailable Stanley Quezada MD Unavailable [phone] Theodore Zamora DO Primary Care Provider + Encounter Details Date Type Department Care Team (Late st Contact Info) Description 03/07/2024 Telephone [facility] - Allergy [address] [facility], [place] [address] Renate Lynn MD [address] [place] [address] Social History Tobacco Use Types Packs/Day Years [...] encounter Miscellaneous Notes * Telephone Encounter - Renate Lynn MD - 03/07/2024 3:10 PM CDT Lab review 02/15/24 CMP wnl CBC w/diff significant for elevated AEC 1020 Renate Lynn MD Allergy & Immunology Fellow documented in this encounter Plan of Treatment Upcoming Encounters Date Type Department Care Team (Late st Contact Info) Description 03/18/2025 8:00 PM CDT Procedure visit [facility] - Sleep Services [facility] [place] [address] 03/30/2025 11:00 AM CDT Office Visit [facility] - Pulmonology [address] [place] [address], [place] [phone] Bonifacio Easton MD [address] [place] [address] 2L DIV OF PULMONARY/[place] [phone] 04/01/2025 1:00 PM CDT Office Visit [facility] - Dermatology [address] [place] [address] [place] [phone] Ty Molina MD [address] [place] [address] 3L [place] [phone] 05/20/2025 3:00 PM CDT Office Visit [facility] - Allergy [address] [place] [address], [place] [address] Stanley Quezada MD [address] [place] [address] DIV [place] ALLERGY/[place] [address] documented as of this encounter Goals Goal [...] on filedocumented in this encounter Care Teams Kitchen Aide Relationship Specialty Start Date End Date Theodore Zamora DO [address] [place] [address] PCP - General Family Medicine Geriatric Medicine 04/11/23 Gerardo Angeles MD Otolaryngology 07/16/19 Edgar Piper MD Otolaryngology 07/16/19 Ruby Manzano MD Dermatology 07/16/19 Stanley Quezada MD [address] [place] [address] Allergy and Immunology 07/16/19 documented as of this encounter
--- OUTSIDE RECORDS SUMMARY | 2024-12-14 13:20 | XMS_ITS | Encounter Summary ---
Author Organization [facility] Address [address] [facility] [place] [address] Care Team Providers Care Guncotton Packer Name Role Phone Gerardo Angeles MD Unavailable [phone] Edgar Piper MD Unavailable [phone] Ruby Manzano MD Unavailable Unavailable Stanley Quezada MD Unavailable [phone] Theodore Zamora DO Primary Care Provider + Reason for Visit * Reason Onset Date Comments MEDICATION REFILL 04/28/2024 Encounter Details Date Type Department Care Team (Late st Contact Info) Description 04/28/2024 Refill [facility] - Pulmonology [address], [address] [place] [address] Bonifacio Easton MD [address] [facility] 2L DIV OF PULMONARY/[place] [address] MEDICATION REFILL Social History Tobacco Use Types [...] encounter Miscellaneous Notes * Telephone Encounter - Jeannie Montoya RN - 04/30/2024 4:20 PM CDT Refill Request Tracey Lambert ASIF: 11/26/23 NOV scheduled: 05/26/2024 LRF: Qty Disp: # of refills: Allergies: Allergies Allergen Reactions Latex Shortness of Breath and Swelling Swelling of where ever the latex touches Aspirin Anaphylaxis Tongue swelling, SOB, went to ER... 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 Self medicated with benadryl Adhesive Sensitivity Rash Can use paper tape... NOT the IV clear tape... Can use coban Ciprofloxacin Rash Sulfamethoxazole W-Trimethoprim Urticaria and Fever Terbinafine Urticaria Heparin Other Red areas where heparin was given subQ Sulfamethoxazole Other Pended Medication Order: Requested Prescriptions Pending Prescriptions Disp Refills tiotropium (Spiriva Respimat) 2.5 MCG/ACT inhaler 4 g 11 Sig: Inhale 2 (two) puffs by mouth once daily documented in this encounter Plan of Treatment Upcoming Encounters Date Type Department Care Team (Late st Contact Info) Description 03/18/2025 8:00 PM CDT Procedure visit [facility] - Sleep Services [address] [place] [address] 03/30/2025 11:00 AM CDT Office Visit [facility] - Pulmonology [address] [place] [phone] Bonifacio Easton MD [address] [place] [address] 2L DIV OF PULMONARY/[place] [address] 04/01/2025 1:00 PM CDT Office Visit [facility] - Dermatology [address] [place] [phone] Ty Molina MD [address] [place] [address] 3L Dept [place] [phone] 05/20/2025 3:00 PM CDT Office Visit [facility] - Allergy [address] [place] [phone] Stanley Quezada MD [address] [place] [address] 2L DIV [place] ALLERGY/[place] [address] documented as of this encounter Goals Goal [...] as of this encounter Visit Diagnoses Diagnosis Persistent asthma with undetermined severity (HCC) Unspecified asthma Chronic obstructive pulmonary disease, unspecified COPD type (HCC) documented in this encounter Care Teams Guncotton Packer Relationship Specialty Start Date End Date Theodore Zamora DO [address] [place] [address] PCP - General Family Medicine Geriatric Medicine 04/11/23 Gerardo Angeles MD Otolaryngology 07/16/19 Edgar Piper MD Otolaryngology 07/16/19 Ruby Manzano MD Dermatology 07/16/19 Stanley Quezada MD [address] [place] [address] Allergy and Immunology 07/16/19 documented as of this encounter
--- OUTSIDE RECORDS SUMMARY | 2024-12-14 13:20 | XMS_ITS | Referral Summary ---
Author Organization [facility] Address [address] [facility] [place] [address] Care Team Providers Care Staff Submarine Warfare Officer Name Role Phone Gerardo Angeles MD Unavailable [phone] Reji Piper MD Unavailable [phone] Ruby Manzano MD Unavailable Unavailable Stanley Quezada MD Unavailable [phone] Theodore Zamora DO Primary Care Provider + Source Comments [facility],non-owned Affiliates and Associated Physician Practices is amultiple site organization consisting of ambulatory clinics and hospital sitesin [place], [place], [place] and [place]. This disclosure is being madepursuant to the Care Everywhere program and may not contain all information available regarding this patient. Last updated 18.[facility] Encounters Date Type Department Care Team Description 12/01/2024 Telephone [facility] - Infectious Disease [address] [place] [phone] Stanley Quezada MD Med Question 11/17/2024 Travel 10/21/2024 Telephone [facility] - Allergy [address] [place] [address] [phone] Stanley Quezada MD Vaccine Question 10/16/2024 Orders Only [facility] - Rheumatology [address] [place] [address] [phone] Ryan Morris MD 10/09/2024 Telephone [facility] - Allergy [address] [place] [phone] Stanley Quezada MD Reminder Call 10/02/2024 10:22 AM TECHNICAL BUSINESS SYSTEMS ANALYST - 10/02/2024 11:59 PM TECHNICAL BUSINESS SYSTEMS ANALYST Hospital Encounter [facility] [address] [place] [address] Ryan Morris MD Discharge Disposition: Home or Self Care 10/02/2024 Travel 10/02/2024 8:30 AM TECHNICAL BUSINESS SYSTEMS ANALYST Office Visit [facility] - Rheumatology [address] [place] [phone] Ryan Morris MD Localized scleroderma (Primary Dx); Polyarthralgia 10/01/2024 Travel 10/01/2024 1:45 PM TECHNICAL BUSINESS SYSTEMS ANALYST Office Visit [facility] - ENT [address] [place] [phone] Gerardo Angeles MD Samter's triad (HCC) (Primary Dx); Chronic rhinosinusitis; Nasal congestion; Rhinitis, unspecified type from Last 3 Months Allergies Active Allergy [...] fluticasone propionate (FLONASE) 50 MCG/ACT nasal spray [place] 2 (two) sprays into each nostril once [...] mouth once daily Mon, wed, fri-2 tabs, , Th-1 tab 12/27/2021 Active rivaroxaban (XARELTO) 20 MG tablet Take 1 (one) tablet by mouth daily with dinner 30 tablet 05/21/2022 Active HYDROcodone-acetam inophen (Conroe) 5-325 MG tablet Take 1 (one) tablet [...] Active vitamin D, ergocalciferol, (Drisdol) 1.25 MG (19553 UT) capsule Take 1 (one) capsule by mouth every 7 days 11/05/2023 Active omeprazole (PriLOSEC) 40 MG capsule Take 1 (one) capsule by mouth 2 times daily, before breakfast and supper 11/28/2023 Active ciclopirox (Penlac) 8 % solution Apply to affected area 2 times daily 6.6 mL 4 02/15/2024 Active ondansetron (Zofran) 4 MG tabletIndications: CVID (common variable immunodeficiency) (HCC) Take 1 (one) tablet by mouth every [...] MCG/ACT inhalerIndications :Persistent asthma with undetermined severity (HCC),Chronic obstructive pulmonary disease, unspecified COPD type (HCC) Inhale 2 (two) puffs by mouth once [...] 11/15/2020 Assessment & Plan (11/15/2020 12:25 PM TECHNICAL BUSINESS SYSTEMS ANALYST): Favor irritant dermatitis due to hand washing - Start triamcinolone 0.1% cream BID to affected areas on hands, SE of topical steroids including skin atrophy discussed - Recommended emolliation after hand washing Inflamed seborrheic keratosis 11/15/2020 Assessment & Plan (11/15/2020 12:23 PM TECHNICAL BUSINESS SYSTEMS ANALYST): - Benign, reassured patient - Given bothersome, treated with LN2 in clinic today, see procedure note Multiple nevi 11/15/2020 Assessment & Plan (11/15/2020 12:23 PM TECHNICAL BUSINESS SYSTEMS ANALYST): - Reassured patient if benign appearance today - Continue in office and self skin examinations - ABCDE of melanoma discussed - Continue sun protection with sunscreen, sun protective clothing and sun avoidance 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 Assessment & Plan (11/15/2020 12:26 PM TECHNICAL BUSINESS SYSTEMS ANALYST): - Reassured of benign appearance today Slow [...] 04/03/20 18 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 05/03/2018 Immunizations Name Administration Dates Next Due COVID PFIZER 12+YR 30MCG/0.3mL 08/22/2024,2022 Covid Moderna primary monova lent 12+ yr 0.5mL 01/09/2021 Covid Pfizer primary Monoval ent 12+ yr 0.3ml 02/01/2022 Covid Pfizer primary monoval ent 12+ yr 0.3mL Purple cap 01/09/2021 FLU VACCINE TRI IIV3 SPLIT I M (FLUVIRIN) 07/25/2021 FLU, HISTORIC VACCINE 07/19/2010, 010,08/19/2003,2002,10/03/2002,10/03/2002 HEP A/HEP B 03/07/2004,09/30/2003,08/19/2003 INFLUENZA Z2R1-29, HISTORIC VACCINE 11/01/2009,0 11/01/2009,11/01/2009 INFLUENZA VACCINE 08/12/2023,,07/25/2021,2019,06/29/2019,07/16/2018,07/13/2018,0 [...] Zoster Hzv Vacc Recombinant Inj Im 12/07/2021, Social History Tobacco Use Types Packs/Day Years [...] Comments Blood Pressure 136/86 10/02/2024 8:25 AM TECHNICAL BUSINESS SYSTEMS ANALYST Pulse 92 10/02/2024 8:25 AM TECHNICAL BUSINESS SYSTEMS ANALYST Temperature 36.9 C (98.4 F) 10/02/2024 8:25 AM TECHNICAL BUSINESS SYSTEMS ANALYST Respiratory Rate 17 05/26/2024 11:07 AM CDT Oxygen Saturation 91% 10/02/2024 8:25 AM TECHNICAL BUSINESS SYSTEMS ANALYST Inhaled Oxygen Concentration 21% 02/01/2021 8 :33 AM CDT Weight 108.9 kg (240 lb) 05/26/2024 11:07 AM CDT Height 170.2 cm (5' 7 ) 10/02/2024 8:25 AM TECHNICAL BUSINESS SYSTEMS ANALYST Body Mass Index 36.49 05/26/2024 11:07 AM CDT Functional Status Functional Status Response Date of [...] person have difficulty concentrating/remembering/making decisions? No 01/25/2021 Plan of Treatment Upcoming Encounters Date Type Department Care Team (Late st Contact Info) Description 03/18/2025 8:00 PM CDT Procedure visit [facility] - Sleep Services [address] [place] [phone] 03/30/2025 11:00 AM CDT Office Visit [facility] - Pulmonology [address] [place] [phone] Bonifacio Easton MD [address] [place] [address] 2L DIV OF PULMONARY/[place] [phone] 04/01/2025 1:00 PM CDT Office Visit [facility] - Dermatology [address] [place] [address], [place] [phone] Ty Molina MD [address] [place] [address] 3[address] [place] [phone] 05/20/2025 3:00 PM CDT Office Visit [facility] - Allergy [address] [place] [address] [phone] Stanley Quezada MD [address] [place] [address] [address] DIV [place]ERGY[place] [address] Goals Goal Patient Goal Type Associated Problems [...] last dose Medical Devices Implanted Type Area Computer Processing Scheduler Device Identifier Shelf Expiration Date Model / Serial / Lot Mesh Srg Ventralight St Sepra 8x6in Implanted:Qty: 1 on 03/11/2019 by Vishal Zhou MD at [facility] [employer] 11/25/2020 [id number] / / [id number] Tube Vnt T Flng Grmt 12mm 9.5mm 1.14mm Implanted:Qty: 1 on 06/17/2020 by Reji Piper MD at [facility] Right: Ear [employer] [id number] / / [id number] Sys Fx 37cm Cpsr Str Ss Peek Perm Hndl Implanted:Qty: 1 on 12/28/2020 by Vishal Zhou MD at [facility] Right: Abdomen [employer] 07/26/2022 [id number] / / [id number] Mesh Srg Ventralight St Sepra 8x6in Implanted:Qty: 1 on 12/28/2020 by Vishal Zhou MD at [facility] Right: Abdomen [employer] 04/25/2022 [id number] / / [id number] Procedures Procedure Name Priority Date/Time Associated Diagnosis Comments [place] BLOOD TITER 10/16/2024 9:45 AM TECHNICAL BUSINESS SYSTEMS ANALYST HISTONE ANTIBODY Routine 10/16/2024 9:45 AM TECHNICAL BUSINESS SYSTEMS ANALYST Localized scleroderma Polyarthralgia RIBOSOMAL P PROTEIN ANTIBODY Routine 10/16/2024 9:45 AM TECHNICAL BUSINESS SYSTEMS ANALYST Localized scleroderma Polyarthralgia SEWER HAND ANTIBODY Routine 10/16/2024 9:45 AM TECHNICAL BUSINESS SYSTEMS ANALYST Localized scleroderma Polyarthralgia URINALYSIS W/MICROSCOPIC NO CULTURE Routine 10/16/2024 9:45 AM TECHNICAL BUSINESS SYSTEMS ANALYST Localized scleroderma Polyarthralgia ERYTHROCYTE SEDIMENTATION RATE Routine 10/16/2024 9:45 AM TECHNICAL BUSINESS SYSTEMS ANALYST Localized scleroderma Polyarthralgia C-REACTIVE PROTEIN Routine 10/16/2024 9: 45 AM TECHNICAL BUSINESS SYSTEMS ANALYST Localized scleroderma Polyarthralgia COMPREHENSIVE METABOLIC PANEL Routine 10/16/2024 9:45 AM TECHNICAL BUSINESS SYSTEMS ANALYST Localized scleroderma Polyarthralgia CK BLOOD Routine 10/16/2024 9:45 AM TECHNICAL BUSINESS SYSTEMS ANALYST Localized scleroderma Polyarthralgia CBC W AUTO DIFFERENTIAL Routine 10/16/20 9:45 AM TECHNICAL BUSINESS SYSTEMS ANALYST Localized scleroderma Polyarthralgia ALDOLASE Routine 10/16/2024 9:45 AM TECHNICAL BUSINESS SYSTEMS ANALYST Localized scleroderma Polyarthralgia SS-B (SJOGREN'S) ANTIBODY Routine 10/16/2024 9:45 AM TECHNICAL BUSINESS SYSTEMS ANALYST Localized scleroderma Polyarthralgia SS-A (SJOGREN'S) ANTIBODY Routine 10/16/2024 9:45 AM TECHNICAL BUSINESS SYSTEMS ANALYST Localized scleroderma Polyarthralgia MCCULLOUGH (SM) ANTIBODY LEO Routine 10/16/20 9:45 AM TECHNICAL BUSINESS SYSTEMS ANALYST Localized scleroderma Polyarthralgia SCLEROSIS 12 ANTIBODY PNL Routine 10/16/2024 9:45 AM TECHNICAL BUSINESS SYSTEMS ANALYST Localized scleroderma Polyarthralgia RHEUMATOID FACTOR BLOOD QUANTITATIVE Routine 10/16/2024 9:45 AM TECHNICAL BUSINESS SYSTEMS ANALYST Localized scleroderma Polyarthralgia HINA-1 ANTIBODY Routine 10/16/2024 9:45 AM TECHNICAL BUSINESS SYSTEMS ANALYST Localized scleroderma Polyarthralgia IMMUNOGLOBULINS IGG/IGM/IGA PANEL Routine 10/16/2024 9:45 AM TECHNICAL BUSINESS SYSTEMS ANALYST Localized scleroderma Polyarthralgia BETA-2 GLYCOPROTEIN 1 ANTIBODY IGG/IGM/IGA PANEL Routine 10/16/2024 9:45 AM TECHNICAL BUSINESS SYSTEMS ANALYST Localized scleroderma Polyarthralgia CARDIOLIPIN ANTIBODY IGA Routine 10/16/2024 9:45 AM TECHNICAL BUSINESS SYSTEMS ANALYST Localized scleroderma Polyarthralgia CARDIOLIPIN ANTIBODY IGG Routine 10/16/2024 9:45 AM TECHNICAL BUSINESS SYSTEMS ANALYST Localized scleroderma Polyarthralgia CARDIOLIPIN ANTIBODY IGM Routine 10/16/2024 9:45 AM TECHNICAL BUSINESS SYSTEMS ANALYST Localized scleroderma Polyarthralgia CHROMATIN ANTIBODY Routine 10/16/2024 9: 45 AM TECHNICAL BUSINESS SYSTEMS ANALYST Localized scleroderma Polyarthralgia COMPLEMENT C3 Routine 10/16/2024 9:45 AM TECHNICAL BUSINESS SYSTEMS ANALYST Localized scleroderma Polyarthralgia COMPLEMENT C4 Routine 10/16/2024 9:45 AM TECHNICAL BUSINESS SYSTEMS ANALYST Localized scleroderma Polyarthralgia COMPLEMENT TOTAL Routine 10/16/2024 9:45 AM TECHNICAL BUSINESS SYSTEMS ANALYST Localized scleroderma Polyarthralgia DNA ANTIBODY DOUBLE STRANDED Routine 10/16/2024 9:45 AM TECHNICAL BUSINESS SYSTEMS ANALYST Localized scleroderma Polyarthralgia DNA ANTIBODY DS CRITHIDIA W/REFLEX TITER Routine 10/16/2024 9:45 AM TECHNICAL BUSINESS SYSTEMS ANALYST Localized scleroderma Polyarthralgia [place] BLOOD SCREEN W/REFLEX TITER Routine 10/16/2024 9:45 AM TECHNICAL BUSINESS SYSTEMS ANALYST Localized scleroderma Polyarthralgia XR FOOT RIGHT 3VW OR MORE Routine 10/02/2024 10:47 AM TECHNICAL BUSINESS SYSTEMS ANALYST Localized scleroderma Polyarthralgia XR FOOT LEFT 3VW OR MORE Routine 10/02/2024 10:47 AM TECHNICAL BUSINESS SYSTEMS ANALYST Localized scleroderma Polyarthralgia XR HAND RIGHT 3VW OR MORE Routine 10/02/2024 10:47 AM TECHNICAL BUSINESS SYSTEMS ANALYST Localized scleroderma Polyarthralgia XR HAND LEFT 3VW OR MORE Routine 10/02/2024 10:47 AM TECHNICAL BUSINESS SYSTEMS ANALYST Localized scleroderma Polyarthralgia VT NASAL ENDOSCOPY,DX Routine 10/01/2024 1:33 PM TECHNICAL BUSINESS SYSTEMS ANALYST Samter's triad (HCC) Chronic rhinosinusitis Nasal congestion Rhinitis, unspecified type ENDOSCOPY, COLON, SCREENING Routine 10/11/2020 10:30 AM TECHNICAL BUSINESS SYSTEMS ANALYST HIV-1 HIV-2 ANTIGEN/ANTIBODY Add on 07/13/2014 1:36 PM CDT from Last 3 Months or Most Recently Relevant to Health Maintenance Results * SCLEROSIS 12 ANTIBODY PNL (10/16/2024 9:45 AM TECHNICAL BUSINESS SYSTEMS ANALYST) SCL-70 <11 <11 SI [facility] Centromere protein [...] 75 <11 <11 SI [facility] Comment: The [place] [employer] (ACR) considers anti-Scl-70 (also [...] patients and anti-RP155 antibodies in about 8%. Hnhs-J1-thECT antibodies are associated with SSc and inflammatory myopathy overlap syndromes. Three major components of U1-snRNP are tested: U1-snRNP SEWER HAND A, U1-snRNP SEWER HAND C, U1-snRNP QWW60zn. The presence of U1-snRNP antibodies occur in [...] Fibrillarin antibodies are found more frequently in -[place] patients and when seen in this population, [...] is directed to one of two proteins: PM/Mdu820 and/or PM/Scl75. More information can be found at [email or web address].action ?[email or web address]-SystScler This test was developed and its analytical performance characteristics have been determined by [facility]. It has not been cleared or approved by FDA. This assay has been validated pursuant to the CLIA regulations and is used for clinical purposes. REPORT COMMENT: FASTING:YES Test Performed at: [facility] [address] [place] [address] NIKKI COPE MD,PHD,ILEANA Blood BLOOD SPECIMEN / Unknown 10/16/2024 9:45 AM TECHNICAL BUSINESS SYSTEMS ANALYST 10/16/2024 9:48 AM TECHNICAL BUSINESS SYSTEMS ANALYST Ryan Morris MD LAB - SEROLOGY ORDER ROMINA [facility] [address] [place] [address] * DNA ANTIBODY DS CRITHIDIA W/REFLEX TITER (10/16/2024 9:45 AM TECHNICAL BUSINESS SYSTEMS ANALYST) dsDNA Antibody Crithidia IFA NEGATIVE NEGATIVE [facility] Comment: Test Performed at: [facility] [address] [place] [address] NIKKI COPE MD,PHD,ILEANA Blood BLOOD SPECIMEN / Unknown 10/16/2024 9:45 AM TECHNICAL BUSINESS SYSTEMS ANALYST 10/16/2024 9:48 AM TECHNICAL BUSINESS SYSTEMS ANALYST Ryan Morris MD LAB - HEMATOLOGY ORD ERABLES [facility] [address] [place] [address] * URINALYSIS W/MICROSCOPIC NO CULTURE (10/16/2024 9:45 AM TECHNICAL BUSINESS SYSTEMS ANALYST) Color UA YELLOW YELLOW [facility] Appearance CLEAR CLEAR [facility] Specific [place] UA 1.010 1.001 - 1.035 [facility] pH [...] SEEN /LPF [facility] Comment: Test Performed at: [facility] [place] [address] TUCKER CULVER MD Granular Casts [facility] Casts UA [facility] Yeast [facility] Comments [facility] Note [facility] Comment: Test Performed at: [facility] [address] [place] [address] TUCKER CULVER MD Urine URINE SPECIMEN OBTAINED BY CLEAN CATCH PROCEDURE / Unknown 10/16/2024 9:45 AM TECHNICAL BUSINESS SYSTEMS ANALYST 10/16/2024 9:48 AM TECHNICAL BUSINESS SYSTEMS ANALYST Ryan Morris MD LAB - URINALYSIS ORD ERABLES Performing Organization Address [facility] Co de Phone Number [facility] [address] [place] [address] * CHROMATIN ANTIBODY (10/16/2024 9:45 AM TECHNICAL BUSINESS SYSTEMS ANALYST) Chromatin Nucleosomal Antibody <1.0 NEG <1.0 NEG AI [facility] Comment: Test Performed at: [facility] [address] [facility] [place] [address] TUCKER CULVER MD Blood BLOOD SPECIMEN / Unknown 10/16/2024 9:45 AM TECHNICAL BUSINESS SYSTEMS ANALYST 10/16/2024 9:48 AM TECHNICAL BUSINESS SYSTEMS ANALYST Ryan Morris MD LAB - SEROLOGY ORDER ROMINA Performing Organization Address [facility] Co de Phone Number [facility] [address] [place] [address] * CARDIOLIPIN ANTIBODY IGA (10/16/2024 9:45 AM TECHNICAL BUSINESS SYSTEMS ANALYST) Pathologist [facility] Cardiolipin Antibody IgA <2.0 APL-U/mL [facility] Comment: [...] aging. For additional information, please refer to http://education.Flowgear/faq/QIE306 (This link is being provided for informational/ educational purposes only.) Test Performed at: [facility] [address] [address] REJI GRAYSON Blood BLOOD SPECIMEN / Unknown 10/16/2024 9:45 AM TECHNICAL BUSINESS SYSTEMS ANALYST 10/16/2024 9:48 AM TECHNICAL BUSINESS SYSTEMS ANALYST Ryan Morris MD LAB - SEROLOGY ORDER ROMINA Performing Organization Address [facility] Co de Phone Number [facility] [address] [place] [address] * CARDIOLIPIN ANTIBODY IGM (10/16/2024 9:45 AM TECHNICAL BUSINESS SYSTEMS ANALYST) Cardiolipin Antibody IgM <2.0 MPL-U/mL [facility] Comment: Value Interpretation ----- < 20.0 Antibody [...] aging. For additional information, please refer to http://education.Flowgear/faq/HDV918 (This link is being provided for informational/ educational purposes only.) Test Performed at: [facility] [address] [address] REJI GRAYSON Blood BLOOD SPECIMEN / Unknown 10/16/2024 9:45 AM TECHNICAL BUSINESS SYSTEMS ANALYST 10/16/2024 9:48 AM TECHNICAL BUSINESS SYSTEMS ANALYST Ryan Morris MD LAB - SEROLOGY ORDER ROMINA Performing Organization Address City/[facility] Co de Phone Number [facility] [address] [place] [address] * CARDIOLIPIN ANTIBODY IGG (10/16/2024 9:45 AM TECHNICAL BUSINESS SYSTEMS ANALYST) Cardiolipin Antibody IgG <2.0 GPL-U/mL [employer] [facility] Comment: Value Interpretation ----- < 20.0 Antibody [...] aging. For additional information, please refer to http://education.Flowgear/faq/KZX761 (This link is being provided for informational/ educational purposes only.) Test Performed at: [facility] [address] [address] REJI GRAYSON Blood BLOOD SPECIMEN / Unknown 10/16/2024 9:45 AM TECHNICAL BUSINESS SYSTEMS ANALYST 10/16/2024 9:48 AM TECHNICAL BUSINESS SYSTEMS ANALYST Ryan Morris MD LAB - SEROLOGY ORDER ROMINA [facility] [address] [place] [address] * BETA-2 GLYCOPROTEIN 1 ANTIBODY IGG/IGM/IGA PANEL (10/16/2024 9:45 AM TECHNICAL BUSINESS SYSTEMS ANALYST) Pathologist [facility] Beta-2 Glycoprotein I Antibody IgG <2.0 <20.0 U/mL [employer] [facility] Comment: Value Interpretation ----- < 20.0 Antibody not detected > or = 20.0 Antibody detected Beta-2 Glycoprotein I Antibody IgM <2.0 <20.0 U/mL [employer] [facility] Comment: Value Interpretation ----- < 20.0 Antibody [...] aging. For additional information, please refer to http://education.Flowgear/faq/IOZ743 (This link is being provided for informational/ educational purposes only.) Test Performed at: [facility] [address] KHUSHBU VILLAGRAN MD,PHD Blood BLOOD SPECIMEN / Unknown 10/16/2024 9:45 AM TECHNICAL BUSINESS SYSTEMS ANALYST 10/16/2024 9:48 AM TECHNICAL BUSINESS SYSTEMS ANALYST Ryan Morris MD LAB - SEROLOGY ORDER ROMINA Performing Organization Address [facility] de Phone Number [employer] [address] [place] [address] * MCCULLOUGH (SM) ANTIBODY LEO (10/16/2024 9:45 AM TECHNICAL BUSINESS SYSTEMS ANALYST) SM Antibody <1.0 NEG <1.0 NEG AI [facility] Comment: Test Performed at: [facility] [address] [facility] [place] [address] TUCKER CULVER MD Blood BLOOD SPECIMEN / Unknown 10/16/2024 9:45 AM TECHNICAL BUSINESS SYSTEMS ANALYST 10/16/2024 9:48 AM TECHNICAL BUSINESS SYSTEMS ANALYST Ryan Morris MD LAB - CHEMISTRY ORDShorty HAMILTON Performing Organization Address [facility] Co de Phone Number [facility] [address] [place] [address] * SEWER HAND ANTIBODY (10/16/2024 9:45 AM TECHNICAL BUSINESS SYSTEMS ANALYST) SEWER HAND Antibody <1.0 NEG <1.0 NEG AI [facility] Comment: Test Performed at: [facility] [address] [employer] [address] TUCKER CULVER MD Blood BLOOD SPECIMEN / Unknown 10/16/2024 9:45 AM TECHNICAL BUSINESS SYSTEMS ANALYST 10/16/2024 9:48 AM TECHNICAL BUSINESS SYSTEMS ANALYST Ryan Morris MD LAB - CHEMISTRY MINESH HAMILTON [facility] [address] [place], [place] [id number] * RHEUMATOID FACTOR BLOOD QUANTITATIVE (10/16/2024 9:45 AM TECHNICAL BUSINESS SYSTEMS ANALYST) Pathologist [facility] Rheumatoid Factor <10 <14 IU/mL [facility] Comment: Test Performed at: [facility] [place] [address] TUCKER CULVER MD Blood BLOOD SPECIMEN / Unknown 10/16/2024 9:45 AM TECHNICAL BUSINESS SYSTEMS ANALYST 10/16/2024 9:48 AM TECHNICAL BUSINESS SYSTEMS ANALYST Ryan Morris MD LAB - CHEMISTRY MINESH HAMILTON Performing Organization Address [facility] Co de Phone Number [facility] [phone] [place] [address] * C-REACTIVE PROTEIN (10/16/2024 9:45 AM TECHNICAL BUSINESS SYSTEMS ANALYST) Pathologist [facility] C-Reactive Protein 6.6 <8.0 mg/L [facility] Comment: Test Performed at: [facility] [place] [address] TUCKER CULVER MD Blood BLOOD SPECIMEN / Unknown 10/16/2024 9:45 AM TECHNICAL BUSINESS SYSTEMS ANALYST 10/16/2024 9:48 AM TECHNICAL BUSINESS SYSTEMS ANALYST Ryan Morris MD LAB - CHEMISTRY MINESH HAMILTON Performing Organization Address City/[facility]/ZIP Co de Phone Number [facility] [address] [place] [phone] * (ABNORMAL) [place] BLOOD TITER (10/16/2024 9:45 AM TECHNICAL BUSINESS SYSTEMS ANALYST) [place] 1:80(H) titer [facility] Comment: A low level [place] titer may be present in pre-clinical autoimmune diseases and normal individuals. Reference Range <1:40 Negative 1:40-1:80 Low Antibody Level >1:80 Elevated Antibody Level [place] Pattern Nuclear, Homogeneou s(A) [facility] Comment: Homogeneous pattern is associated with systemic lupus erythematosus (SLE), drug-induced lupus and juvenile idiopathic arthritis. AC-1: Homogeneous International Consensus on [place] Patterns (https://doi.org/10.1515/hcgr-9836-4201) Test Performed at: [facility] [address] [address] [facility] [place] [employer] [address] TUCKER CULVER MD 10/16/2024 9:45 AM TECHNICAL BUSINESS SYSTEMS ANALYST 10/16/2024 9:48 AM TECHNICAL BUSINESS SYSTEMS ANALYST Ryan Morris MD LAB - CHEMISTRY MINESH HAMILTON Performing Organization Address [facility] de Phone Number [employer] [address] [place] [address] * (ABNORMAL) [place] BLOOD SCREEN W/REFLEX TITER (10/16/2024 9:45 AM TECHNICAL BUSINESS SYSTEMS ANALYST) Pathologist [facility] [place] Screen POSITIVE( A) NEGATIVE [facility] Comment: [place] IFA is a first line screen for detecting the presence of up to approximately 150 autoantibodies in various autoimmune diseases. A positive [place] IFA result is suggestive of autoimmune disease and reflexes to titer and pattern. Further laboratory testing may be considered if clinically indicated. For additional information, please refer to http://education.[employer]faq/DDH157 (This link is being provided for informational/ educational purposes only.) Test Performed at: [facility] [address] [place] [employer] [address] TUCKER CULVER MD Blood BLOOD SPECIMEN / Unknown 10/16/2024 9:45 AM TECHNICAL BUSINESS SYSTEMS ANALYST 10/16/2024 9:48 AM TECHNICAL BUSINESS SYSTEMS ANALYST Ryan Morris MD LAB - CHEMISTRY MINESH HAMILTON Performing Organization Address [facility] de Phone Number [facility] [address] [place] [phone] * RIBOSOMAL P PROTEIN ANTIBODY (10/16/2024 9:45 AM TECHNICAL BUSINESS SYSTEMS ANALYST) Pathologist [facility] Ribosomal P Protein Antibody <1.0 NEG <1.0 NEG AI [facility] Comment: Test Performed at: [facility] [address] [facility] [place] [address] TUCKER CULVER MD Blood BLOOD SPECIMEN / Unknown 10/16/2024 9:45 AM TECHNICAL BUSINESS SYSTEMS ANALYST 10/16/2024 9:48 AM TECHNICAL BUSINESS SYSTEMS ANALYST Ryan Morris MD LAB - CHEMISTRY MINESH HAMILTON Performing Organization Address [facility] Co de Phone Number [employer] [address] [place] [phone] * (ABNORMAL) HISTONE ANTIBODY (10/16/2024 9:45 AM TECHNICAL BUSINESS SYSTEMS ANALYST) Pathologist [facility] Histone Antibodies 1.6(H) U [facility] Comment: Value Explanation of Results ------ <1.0 Negative 1.0-1.5 Weak Positive 1.6-2.5 Moderate Positive >2.5 Strong Positive REPORT COMMENT: FASTING:YES Test Performed at: [employer] [address] [address] REJI GRAYSON Blood BLOOD SPECIMEN / Unknown 10/16/2024 9:45 AM TECHNICAL BUSINESS SYSTEMS ANALYST 10/16/2024 9:48 AM TECHNICAL BUSINESS SYSTEMS ANALYST Ryan Morris MD LAB - CHEMISTRY MINESH HAMILTON Performing Organization Address [facility] Co de Phone Number [address] [address] * (ABNORMAL) COMPLEMENT TOTAL (10/16/2024 9:45 AM TECHNICAL BUSINESS SYSTEMS ANALYST) Pathologist [facility] Complement Total CH50 >60(H) 31 - 60 U/mL [facility] Comment: Test Performed at: [employer] [address] [facility] [place] [address] TUCKER CULVER MD Blood BLOOD SPECIMEN / Unknown 10/16/2024 9:45 AM TECHNICAL BUSINESS SYSTEMS ANALYST 10/16/2024 9:48 AM TECHNICAL BUSINESS SYSTEMS ANALYST Ryan Morris MD LAB - CHEMISTRY MINESH HAMILTON Performing Organization Address [facility] Co de Phone Number [facility] [phone] [place] [address] * SS-B (SJOGREN'S) ANTIBODY (10/16/2024 9:45 AM TECHNICAL BUSINESS SYSTEMS ANALYST) Sjogren's Antibodies (SSB) <1.0 NEG <1.0 NEG AI [facility] Comment: Test Performed at: [employer] [address] [address] TUCKER CULVER MD Blood BLOOD SPECIMEN / Unknown 10/16/2024 9:45 AM TECHNICAL BUSINESS SYSTEMS ANALYST 10/16/2024 9:48 AM TECHNICAL BUSINESS SYSTEMS ANALYST Ryan Morris MD LAB - CHEMISTRY MINESH HAMILTON Performing Organization Address [facility] de Phone Number [facility] [address] [place] [phone] * SS-A (SJOGREN'S) ANTIBODY (10/16/2024 9:45 AM TECHNICAL BUSINESS SYSTEMS ANALYST) Sjogren's Antibodies (SSA) <1.0 NEG <1.0 NEG AI [facility] Comment: Test Performed at: [facility] [address] [address] TUCKER CULVER MD Blood BLOOD SPECIMEN / Unknown 10/16/2024 9:45 AM TECHNICAL BUSINESS SYSTEMS ANALYST 10/16/2024 9:48 AM TECHNICAL BUSINESS SYSTEMS ANALYST Ryan Morris MD LAB - CHEMISTRY MINESH HAMILTON Performing Organization Address [facility] Co de Phone Number [facility] [phone] [place] [address] * DNA ANTIBODY DOUBLE STRANDED (10/16/2024 9:45 AM TECHNICAL BUSINESS SYSTEMS ANALYST) dsDNA Antibody <1 IU/mL [facility] Comment: IU/mL Interpretation < or = 4 Negative 5-9 Indeterminate > or = 10 Positive Test Performed at: [facility] [address] [employer] [address] TUCKER CULVER MD Blood BLOOD SPECIMEN / Unknown 10/16/2024 9:45 AM TECHNICAL BUSINESS SYSTEMS ANALYST 10/16/2024 9:48 AM TECHNICAL BUSINESS SYSTEMS ANALYST Ryan Morris MD LAB - HEMATOLOGY ORD ERABLES Performing Organization Address [facility] Co de Phone Number [facility] [phone] [place] [address] * HINA-1 ANTIBODY (10/16/2024 9:45 AM TECHNICAL BUSINESS SYSTEMS ANALYST) Hina-1 Antibody <1.0 NEG <1.0 NEG AI [facility] Comment: Test Performed at: [facility] [place] [address] TUCKER CULVER MD Blood BLOOD SPECIMEN / Unknown 10/16/2024 9:45 AM TECHNICAL BUSINESS SYSTEMS ANALYST 10/16/2024 9:48 AM TECHNICAL BUSINESS SYSTEMS ANALYST Ryan Morris MD LAB - CHEMISTRY ORDShorty HAMILTON Performing Organization Address [facility] Co de Phone Number [facility] [address] [place] [address] * ALDOLASE (10/16/2024 9:45 AM TECHNICAL BUSINESS SYSTEMS ANALYST) Aldolase 4.1 < OR = 8.1 U/L [facility] Comment: REPORT COMMENT: FASTING:YES Test Performed at: [facility] [address] [place] [address] TUCKER CULVER MD Blood BLOOD SPECIMEN / Unknown 10/16/2024 9:45 AM TECHNICAL BUSINESS SYSTEMS ANALYST 10/16/2024 9:48 AM TECHNICAL BUSINESS SYSTEMS ANALYST Ryan Morris MD LAB - CHEMISTRY MINESH HAMILTON Performing Organization Address [facility] de Phone Number [facility] [phone] [place] [address] * (ABNORMAL) ERYTHROCYTE SEDIMENTATION RATE (10/16/2024 9:45 AM TECHNICAL BUSINESS SYSTEMS ANALYST) Erythrocyte Sedimentation Rate Westergren 39(H) < OR = 30 mm/h [facility] Comment: Test Performed at: [facility] [address] [employer] [place], [place] [address] TUCKER CULVER MD Blood BLOOD SPECIMEN / Unknown 10/16/2024 9:45 AM TECHNICAL BUSINESS SYSTEMS ANALYST 10/16/2024 9:48 AM TECHNICAL BUSINESS SYSTEMS ANALYST Ryan Morris MD LAB - HEMATOLOGY ORD ERABLES [facility] [address] [place] [address] * (ABNORMAL) CBC WITH DIFFERENTIAL (10/16/2024 9:45 AM TECHNICAL BUSINESS SYSTEMS ANALYST) White Blood Cell Count 7.6 3.8 - [...] 1.0 % [facility] Comment: Test Performed at: [facility] [address] [place] [address] TUCKER CULVER MD Blood BLOOD SPECIMEN / Unknown 10/16/2024 9:45 AM TECHNICAL BUSINESS SYSTEMS ANALYST 10/16/2024 9:48 AM TECHNICAL BUSINESS SYSTEMS ANALYST Ryan Morris MD LAB - HEMATOLOGY ORD ERABLES Performing Organization Address City/[facility]/ZIP Co de Phone Number [facility] [address] [place] [address] * COMPLEMENT C4 (10/16/2024 9:45 AM TECHNICAL BUSINESS SYSTEMS ANALYST) Pathologist [facility] Complement C4 42 15 - 57 mg/dL [facility] Comment: Test Performed at: [facility] [address] [facility] [place] [address] TUCKER CULVER MD Blood BLOOD SPECIMEN / Unknown 10/16/2024 9:45 AM TECHNICAL BUSINESS SYSTEMS ANALYST 10/16/2024 9:48 AM TECHNICAL BUSINESS SYSTEMS ANALYST Ryan Morris MD LAB - SEROLOGY ORDER ROMINA Performing Organization Address [facility] Co de Phone Number [facility] [address] [place] [address] * (ABNORMAL) COMPREHENSIVE METABOLIC PANEL (10/16/2024 9:45 AM TECHNICAL BUSINESS SYSTEMS ANALYST) Pathologist [facility] Glucose 101(H) 65 - 99 mg/dL [facility] [...] 29 U/L [facility] Comment: Test Performed at: [facility] [address] [facility] [place] [address] TUCKER CULVER MD Blood BLOOD SPECIMEN / Unknown 10/16/2024 9:45 AM TECHNICAL BUSINESS SYSTEMS ANALYST 10/16/2024 9:48 AM TECHNICAL BUSINESS SYSTEMS ANALYST Ryan Morris MD LAB - CHEMISTRY MINESH HAMILTON Performing Organization Address City/[facility]/ZIP Co de Phone Number [facility] [phone] [place] [address] * CK BLOOD (10/16/2024 9:45 AM TECHNICAL BUSINESS SYSTEMS ANALYST) Pathologist [facility] CK 69 29 - 143 U/L [facility] Comment: Test Performed at: [facility] [place] [address] TUCKER CULVER MD Blood BLOOD SPECIMEN / Unknown 10/16/2024 9:45 AM TECHNICAL BUSINESS SYSTEMS ANALYST 10/16/2024 9:48 AM TECHNICAL BUSINESS SYSTEMS ANALYST Ryan Morris MD LAB - CHEMISTRY MINESH HAMILTON Performing Organization Address [facility] Co de Phone Number [facility] [phone] [place] [address] * (ABNORMAL) IMMUNOGLOBULINS IGG/IGM/IGA PANEL (10/16/2024 9:45 AM TECHNICAL BUSINESS SYSTEMS ANALYST) Pathologist [facility] IgA 110 47 - 310 mg/dL [facility] IgG 1395 600 - 1640 mg/dL [facility] IgM 29(L) 50 - 300 mg/dL [facility] Comment: Test Performed at: [facility] [place] [address] TUCKER CULVER MD Blood BLOOD SPECIMEN / Unknown 10/16/2024 9:45 AM TECHNICAL BUSINESS SYSTEMS ANALYST 10/16/2024 9:48 AM TECHNICAL BUSINESS SYSTEMS ANALYST Ryan Morris MD LAB - CHEMISTRY MINESH HAMILTON Performing Organization Address [facility] Co de Phone Number [facility] [phone] [place] [address] * (ABNORMAL) COMPLEMENT C3 (10/16/2024 9:45 AM TECHNICAL BUSINESS SYSTEMS ANALYST) Complement C3 208(H) 83 - 193 mg/dL [facility] Comment: Test Performed at: [facility] [place] [address] [place] [address] TUCKER CULVER MD Blood BLOOD SPECIMEN / Unknown 10/16/2024 9:45 AM TECHNICAL BUSINESS SYSTEMS ANALYST 10/16/2024 9:48 AM TECHNICAL BUSINESS SYSTEMS ANALYST Ryan Morris MD LAB - CHEMISTRY MINESH HAMILTON [employer] [address] [place] [address] * XR Foot Right 3Vw or More (10/02/2024 10:47 AM TECHNICAL BUSINESS SYSTEMS ANALYST) Anatomical Region Laterality Modality Ankle / Foot Digital Radiogra phy 10/02/2024 10:5 0 AM TECHNICAL BUSINESS SYSTEMS ANALYST Impressions 10/02/2024 11:11 AM TECHNICAL BUSINESS SYSTEMS ANALYST IMPRESSION: Right hand: Normal Left hand: Normal Right foot: 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 Left foot: No evidence of arthritis. Report dictated by Jose Shrestha MD (radiology specialist). I, Ayden Heard MD have personally reviewed and interpreted this examination/study. > Interpreting Provider: Ayden Heard MD on 10/02/2024 11:11 AM Narrative 10/02/2024 11:11 AM TECHNICAL BUSINESS SYSTEMS ANALYST PROCEDURE: XR HAND LEFT 3VW OR MORE, XR HAND RIGHT 3VW OR MORE, XR FOOT LEFT 3VW OR MORE, XR FOOT RIGHT 3VW OR MORE, DATE/TIME OF EXAM: 10/02/2024 10:47 AM, LOCATION 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 Report dictated by Jose Shrestha MD (radiology specialist). Ayden Webb MD have personally reviewed and interpreted this examination/study. 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 Left foot: No evidence of arthritis. Report dictated by Jose Shrestha MD (radiology specialist). Ayden Webb MD have personally reviewed and interpreted this examination/study. > Interpreting Provider: Ayden Heard MD on 10/02/2024 11:11 AM Narrative 10/02/2024 11:11 AM TECHNICAL BUSINESS SYSTEMS ANALYST PROCEDURE: XR HAND LEFT 3VW OR MORE, XR HAND RIGHT 3VW OR MORE, XR FOOT LEFT 3VW OR MORE, XR FOOT RIGHT 3VW OR MORE, DATE/TIME OF EXAM: 10/02/2024 10:47 AM, LOCATION 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 Report dictated by Jose Shrestha MD (radiology specialist). Ayden Webb MD have personally reviewed and interpreted this examination/study. 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 Left foot: No evidence of arthritis. Report dictated by Jose Shrestha MD (radiology specialist). Ayden Webb MD have personally reviewed and interpreted this examination/study. > Interpreting Provider: Ayden Heard MD on 10/02/2024 11:11 AM Narrative 10/02/2024 11:11 AM TECHNICAL BUSINESS SYSTEMS ANALYST PROCEDURE: XR HAND LEFT 3VW OR MORE, XR HAND RIGHT 3VW OR MORE, XR FOOT LEFT 3VW OR MORE, XR FOOT RIGHT 3VW OR MORE, DATE/TIME OF EXAM: 10/02/2024 10:47 AM, LOCATION 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 Report dictated by Jose Shrestha MD (radiology specialist). Ayden Webb MD have personally reviewed and interpreted this examination/study. 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 Left foot: No evidence of arthritis. Report dictated by Jose Shrestha MD (radiology specialist). Ayden Webb MD have personally reviewed and interpreted this examination/study. > Interpreting Provider: Ayden Heard MD on 10/02/2024 11:11 AM Narrative 10/02/2024 11:11 AM TECHNICAL BUSINESS SYSTEMS ANALYST PROCEDURE: XR HAND LEFT 3VW OR MORE, XR HAND RIGHT 3VW OR MORE, XR FOOT LEFT 3VW OR MORE, XR FOOT RIGHT 3VW OR MORE, DATE/TIME OF EXAM: 10/02/2024 10:47 AM, LOCATION 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 Report dictated by Jose Shrestha MD (radiology specialist). I, Ayden Heard MD have personally reviewed and interpreted this examination/study. > Interpreting Provider: Ayden Heard MD on 10/02/2024 11:11 AM Ryan Morris MD DIAGNOSTIC IMAGING O RDERABLES * VT NASAL ENDOSCOPY,DX (10/01/2024 1:33 PM TECHNICAL BUSINESS SYSTEMS ANALYST) Narrative Mark Kwong MD - 10/01/2024 1:33 PM TECHNICAL BUSINESS SYSTEMS ANALYST Mark Kwong MD 10/02/2024 9:20 AM Procedure: [...] * ENDOSCOPY, COLON, SCREENING (10/11/2020 10:30 AM TECHNICAL BUSINESS SYSTEMS ANALYST) Report Endoscopy POC Endoscopy Department Report _ [...] and oxygen saturations were monitored continuously. The [id number] was introduced through the anus and advanced to the cecum, identified by appendiceal orifice and ileocecal valve. The colonoscopy was performed without difficulty. The patient tolerated the procedure well. The ileocecal valve, appendiceal orifice, and rectum were photographed. The quality of the bowel preparation was evaluated using the BBPS ([place] Bowel Preparation Scale) with scores of: Right [...] non-gray portions. Procedure Code(s): --- Professional --- 77448, Colonoscopy, flexible; with biopsy, single or multiple Diagnosis Code(s): --- Professional --- Z12.11, Encounter for screening for malignant neoplasm of colon K63.5, Polyp of colon Z98.0, Intestinal bypass and anastomosis status CPT copyright 2019 [employer]. All rights reserved. The codes documented in this report are preliminary and upon tower observer review may be revised to meet current compliance requirements. Humza Wiley MD 10/11/2020 11:33:23 AM Note Initiated On: 10/11/2020 10:30 AM Number of Addenda: 0 [facility] [address] [place], [place] [id number] [place] [address] [employer] 10/11/2020 10:3 0 AM TECHNICAL BUSINESS SYSTEMS ANALYST Humza Wiley MD GI PROCEDURE ORDERABLES [facility] * HIV-1 HIV-2 ANTIGEN/ANTIBODY (07/13/2014 1:36 PM CDT) HIV Antigen/Antibod y 1 & 2 Non-reacti ve Non-react mario [facility] Comment: Neither HIV-1 p24 Antigen nor HIV-1/HIV-2 Antibodies are detected. Blood specimen (specimen) BLOOD SPECIMEN / Unknown 07/13/2014 1:36 PM CDT 07/13/2014 1:43 PM CDT James Calderon MD LAB - HEMATOLOGY OR DERABLES [address] [phone] from Last 3 Months or Most Recently Relevant to Health Maintenance Administered Medications Advance Directives * Full Code (Latest Code [...] 11:50 AM 09/16/2018 3:31 PM Care Teams Staff Submarine Warfare Officer Relationship Specialty Start Date End Date Theodore Zamora DO [address] [place] [phone] PCP - General Family Medicine Geriatric Medicine 04/11/23 Gerardo Angeles MD Otolaryngology 07/16/19 Reji Piper MD Otolaryngology 07/16/19 Ruby Manzano MD Dermatology 07/16/19 [place] [address] [place] [address] Allergy and Immunology 07/16/19
--- OUTSIDE RECORDS SUMMARY | 2024-12-14 13:21 | XMS_ITS | Patient Health Summary ---
Author Organization [facility] Address [address] [place] [address] Care Team Providers Care Data Collection Interviewer Name Role Phone Gerardo Angeles MD Unavailable [phone] Edgar Piper MD Unavailable [phone] Ruby Manzano MD Unavailable Unavailable Stanley Quezada MD Unavailable [phone] Theodore Zamora DO Primary Care Provider + Note from [facility],non-owned Affiliates and Associated Physician Practices is amultiple site organization consisting of ambulatory clinics and hospital sitesin [place], [place], [place] and [place]. This disclosure is being madepursuant to the Care Everywhere program and may not contain all information available regarding this patient. Last updated 18.[facility] Allergies * Adhesive Sensitivity(Rash) -Medium Criticality * Aspirin(Anaphylaxis) -High Criticality * Aztreonam(Fever,Other,Rash) -High Criticality * Aztreonam In Dextrose(Rash,Fever,Systemic) -High Criticality * Ciprofloxacin(Rash) -Medium Criticality * Heparin(Other) * Ibuprofen(Anaphylaxis) -High Criticality * Latex(Shortness of Breath,Swelling) -High Criticality * Nifedipine(Urticaria,Dizziness) -Medium Criticality * Nsaids(Anaphylaxis,Urticaria) -High Criticality * Prochlorperazine(Unknown) * Shellfish Allergy(Shortness of Breath,Swelling) -High Criticality * Sulfamethoxazole(Other) * Sulfamethoxazole W-Trimethoprim(Urticaria,Fever) -Medium Criticality * Terbinafine(Urticaria) -Medium Criticality * Vancomycin(Rash) -Medium Criticality * Ondansetron(Palpitations) * Iohexol(Shortness of Breath) -High Criticality,Inactive * Soy Allergy(Rash,Swelling) -High Criticality,Inactive Medications * Be aware that medications may not be up to date on this document. Alwaysverify current medications with the patient. * amLODIPine (NORVASC) 10 MG tablet(Started 02/06/2018) Take 1 (one) tablet by mouth once daily * furosemide (LASIX) 40 MG tablet(Started 12/21/2017) Take 1 (one) tablet by mouth once daily * lamoTRIgine (LAMICTAL) 200 MG tablet(Started 11/20/2017) Take 1 (one) tablet by mouth 2 times daily 5 refills left * ramipril (ALTACE) 5 MG capsule(Started 02/06/2018) Take 1 (one) capsule by mouth 2 times daily * immune globulin, human, (GAMUNEX-C) infusion(Started 03/06/2018) 70 g by Intravenous route every 28 days 11 refills remaining * albuterol (PROVENTIL;VENTOLIN) (2.5 MG/3ML) 0.083% nebulizer solution Inhale 2.5 (two and one-half) mg by mouth 4 times daily as needed for Shortness of Breath or Wheezing * diphenhydrAMINE (BENADRYL) 25 mg/50 mL infusion 25 (twenty five) mg by Intravenous route every 28 days For IVIG * fluticasone propionate (FLONASE) 50 MCG/ACT nasal spray [place] 2 (two) sprays into each nostril once daily * albuterol HFA (PROVENTIL;VENTOLIN;PROAIR) 108 (90 Base) MCG/ACT inhaler Inhale 2 (two) puffs by mouth every 6 hours as needed * cetirizine-pseudoephedrine 12hr (ZYRTEC-D) 5-120 MG tablet Take 1 (one) tablet by mouth as needed * fexofenadine (LENA) 180 MG tablet(Started 11/30/2020) Take by mouth once daily * theophylline CR 12hr (THEODUR) 300 MG tablet(Started 01/27/2021) Take 1 (one) tablet by mouth 2 times daily * olopatadine (PATANOL) 0.1 % ophthalmic solution(Started 04/18/2021) * acetaminophen (TYLENOL) 500 MG capsule Take 1 (one) capsule by mouth every 4 hours as needed for Fever or Pain * mometasone-formoterol (DULERA) 200-5 MCG/ACT inhaler(Started 11/01/2021) Inhale 2 (two) puffs by mouth 2 times daily Reasons: Asthma, Chronic Obstructive Lung Disease 3 refills by 11/01/2022 * levothyroxine (SYNTHROID) 25 MCG tablet(Started 12/27/2021) Take by mouth once daily Mon, sun, sun-2 tabs, , Th-1 tab * rivaroxaban (XARELTO) 20 MG tablet(Started 05/21/2022) Take 1 (one) tablet by mouth daily with dinner * HYDROcodone-acetaminophen ([place]) 5-325 MG tablet Take 1 (one) tablet by mouth every 6 hours as needed for Pain * benzonatate (Tessalon) 100 MG capsule(Started 01/10/2023) Take 1 (one) capsule by mouth 3 times daily 4 refills by 01/10/2024 * guaiFENesin ER 12hr (Mucinex) 600 MG tablet(Started 01/10/2023) Take 1 (one) tablet by mouth every 12 hours as needed for Cough 3 refills by 01/10/2024 * diphenhydrAMINE (Benadryl) 25 MG capsule Take 1 (one) capsule by mouth every 6 hours as needed for Allergies * vitamin D, ergocalciferol, (Drisdol) 1.25 MG (97687 UT) capsule(Started 11/05/2023) Take 1 (one) capsule by mouth every 7 days * omeprazole (PriLOSEC) 40 MG capsule(Started 11/28/2023) Take 1 (one) capsule by mouth 2 times daily, before breakfast and supper * ciclopirox (Penlac) 8 % solution(Started 02/15/2024) Apply to affected area 2 times daily 4 refills by 02/14/2025 * ondansetron (Zofran) 4 MG tablet(Started 02/15/2024) Take 1 (one) tablet by mouth every 8 hours as needed for Nausea/Vomiting 3 refills by 02/14/2025 * mupirocin (Bactroban) 2 % ointment(Started 02/15/2024) Apply to affected area 3 times daily * tacrolimus (Protopic) 0.1 % ointment(Started 03/28/2024) Apply clobetasol to affected areas on trunk twice daily for 2 weeks, then tacrolimus twice daily for 1 week, and continue to alternate as directed when rash is active. 30 day supply. 5 refills by 03/28/2025 * tiotropium (Spiriva Respimat) 2.5 MCG/ACT inhaler(Started 04/30/2024) Inhale 2 (two) puffs by mouth once daily 11 refills by 04/30/2025 * ciprofloxacin-dexAMETHasone (Ciprodex) 0.3-0.1 % otic suspension(Started 08/26/2024) Instill 4 (four) drops into both ears 2 times daily Shake well before using. 3 refills by 08/26/2025 * EPINEPHrine (Epipen) 0.3 MG/0.3ML auto-injector pen(Started 08/27/2024) Inject 0.3 mL into muscle once as needed for Anaphylaxis 1 refill by 08/27/2025 * cetirizine (ZyrTEC) 10 MG tablet Take 1 (one) tablet by mouth once daily as needed * cholestyramine (Questran) 4 g packet(Started 08/22/2024) as needed * UltiCare Tuberculin Safety Syr 25G X 5/8 1 ML MISC(Started 05/29/2024) USE ONCE A WEEK DIRECTED * clobetasol (Temovate) 0.05 % cream APPLY TO THE VULVAR AREA AT BEDTIME UNTIL FOLLOW UP APPOINTMENT * cyanocobalamin (Vitamin B-12) injection(Started 05/21/2024) Inject 1,000 (one thousand) mcg into muscle * folic acid (Folvite) 1 MG tablet(Started 06/09/2024) Take 1 (one) tablet by mouth once daily * liothyronine (Cytomel) 5 MCG tablet(Started 09/01/2024) Take 1 (one) tablet by mouth 2 times daily * famotidine (Pepcid) 40 MG tablet Take 1 (one) tablet by mouth 2 times daily * fluticasone hfa 220 (Flovent HFA) 220 MCG/ACT inhaler Inhale 2 (two) puffs by mouth 2 times daily Active Problems Problem Noted Date Diagnosed Date 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 History of pulmonary embolism 05/26/2024 Lung nodule 04/18/2023 Pleuritic chest pain 04/18/2023 ILD (interstitial lung disease) 01/10/[address] on [address] 01/10/2023 Chronic cough 01/10/2023 Persistent asthma with undetermined severity Perennial allergic rhinitis 09/20/2022 Gastroesophageal reflux disease without esophagi tis 09/20/2022 Hyperuricemia 11/09/2021 Sepsis 01/24/2021 Hand dermatitis 11/15/2020 Inflamed seborrheic keratosis 11/15/2020 Multiple nevi 11/15/2020 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 Slow transit constipation 08/16/2020 Bilious vomiting with [...] thyroiditis 02/05/2019 Eosinophilia 05/04/2018 Food allergy 05/03/2018 Poorly controlled severe per sistent asthma without complication 02/20/2018 CVID (common variable immunodeficiency) 02/21/20 Recurrent respiratory infection 02/20/2018 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 MSSA infection, non-invasive 02/11/2016 Chronic pansinusitis 02/17/2015 Chronic sinus bradycardia 12/21/2014 Essential hypertension, benign 09/07/2014 Anxiety 06/17/2014 Pulmonary embolism 06/05/2014 Coagulation disorder 04/22/2014 Respiratory distress 02/24/2014 Chronic obstructive pulmonary disease 03/15/2012 Nasal polyps 03/28/2011 Raynaud's syndrome 07/11/2007 Hypogammaglobulinemia 07/25/2005 Polycystic ovaries 05/04/2004 Incisional hernia, without obstruction or gangre ne Resolved Problems Problem Noted Date Diagnosed Date Resolved Date Severe persistent asthma wit h acute exacerbation 11/26/2023 12/10/2023 History of pneumothorax 05/28/2023/2 01/2024 SOB (shortness of breath) 05/18/2023 History [...] and unspecified causes of morbidity 04/22/2014 02/01/2022 Pneumonia due to methicillin sensitive Staphylococcus aureus 04/08/2014 05/04/2018 Pneumonia due to organism 04/08/2014 Asthma exacerbation 04/06/2014 04/03/20 18 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 05/03/2018 Immunizations * COVID PFIZER 12+YR 30MCG/0.3mL(Given 08/22/2024, 08/12/2023) * Covid Moderna primary monovalent 12+ yr 0.5mL(Given 01/09/2021) * Covid Pfizer primary Monovalent 12+ yr 0.3ml(Given 02/01/2022) * Covid Pfizer primary monovalent 12+ yr 0.3mL Purple cap(Given 01/09/2021) * FLU VACCINE TRI IIV3 SPLIT IM (FLUVIRIN)(Given 07/25/2021) * FLU, HISTORIC VACCINE(Given 07/19/2010, 07/19/2010, 08/19/2003, 08/19/2003, 10/03/2002, 10/03/2002) * HEP A/HEP B(Given 03/07/2004, 09/30/2003, 08/19/2003) * INFLUENZA T6X4-72, HISTORIC VACCINE(Given 11/01/2009, 11/01/2009, 11/01/2009) * INFLUENZA VACCINE(Given 08/12/2023, 07/30/2022, 07/25/2021, 06/30/2020, 06/29/2019, 07/16/2018, 07/13/2018, 10/29/2017, 08/06/2017, 06/28/2016, 08/06/2015, 07/28/2014, 07/15/2013, 07/19/2012, 07/19/2010, 07/19/2010, 11/01/2009, 07/11/2009, 08/19/2003, 10/03/2002) * INFLUENZA VACCINE, CELL CULTURE, QUADR. (FLUCELVAX QUADRIVALENT; 6MO+) (CCIIV4)(Given 08/12/2023, 07/30/2022, 06/30/2020, 08/06/2017) * INFLUENZA VACCINE, CELL CULTURE, TRIV. (FLUCELVAX TRIVALENT; 6MO+), 0.5 ML (CCIIV3)(Given 08/04/2024) * INFLUENZA VACCINE, QUADR. (AFLURIA, FLUZONE QUADRIVALENT; 6MO+) (IIV4)(Given 07/11/2009) * INFLUENZA VACCINE, QUADR. (FLUZONE; FLULAVAL; FLUARIX; AFLURIA QUADRIVALENT; 6MO+), 0.5 ML (IIV4)(Given 07/16/2019, 07/16/2018) * Influenza Intradermal(Given 06/28/2016, 08/06/2015, 07/28/2014, 07/15/2013, 07/19/2012) * MMR(Given 03/21/1990) * PNEUMOCOCCAL PCV VACCINE(Given 10/29/2015) * PNEUMOCOCCAL PCV20 CONJ VAC IM(Given 04/18/2023) * PNEUMOCOCCAL PPSV23(Given 07/16/2018, 07/13/2018, 08/04/2003) * PNEUMOCOCCAL PPV VACCINE(Given 10/29/2015) * POLIO OPV(Given 04/03/1975) * Pneumococcal Pcv13 Conj(Given 09/02/2015, 10/29/2014) * TDAP (7yrs+)(Given 06/19/2022, 10/14/2014) * Td (Adult), 2 Lf Tetanus Toxoid, Adsorbed, Pf(Given 05/10/2007, 07/25/1999) * Zoster Hzv Vacc Recombinant Inj Im(Given 12/07/2021, 08/24/2021) Social History Tobacco Use Types Packs/Day Years [...] Comments Blood Pressure 136/86 10/02/2024 8:25 AM TOOL CRIB LEAD Pulse 92 10/02/2024 8:25 AM TOOL CRIB LEAD Temperature 36.9 C (98.4 F) 10/02/2024 8:25 AM TOOL CRIB LEAD Respiratory Rate 17 05/26/2024 11:07 AM CDT Oxygen Saturation 91% 10/02/2024 8:25 AM TOOL CRIB LEAD Inhaled Oxygen Concentration 21% 02/01/2021 8 :33 AM CDT Weight 108.9 kg (240 lb) 05/26/2024 11:07 AM CDT Height 170.2 cm (5' 7 ) 10/02/2024 8:25 AM TOOL CRIB LEAD Body Mass Index 36.49 05/26/2024 11:07 AM CDT Medical Devices Implanted Type Area [id number] Managed Service Sales Exec Device Identifier Shelf Expiration Date Model / Serial / Lot Mesh Srg Ventralight St Sepra 8x6in Implanted:Qty: 1 on 03/11/2019 by Vishal Zhou MD at [facility] [employer] 11/25/2020 [id number] / / [id number] Tube Vnt T Flng Grmt 12mm 9.5mm 1.14mm Implanted:Qty: 1 on 06/17/2020 by Edgar Piper MD at [facility] Right: Ear [employer] [id number] / / [id number] Sys Fx 37cm Cpsr Str Ss Peek Perm Hndl Implanted:Qty: 1 on 12/28/2020 by Vishal Zhou MD at [facility] Right: Abdomen [employer] 07/26/2022 [id number] / / [id number] Mesh Srg Ventralight St Sepra 8x6in Implanted:Qty: 1 on 12/28/2020 by Vishal Zhou MD at [facility] Right: Abdomen [employer] 04/25/2022 [id number] / / [id number] Procedures * [place] BLOOD TITER(Performed 10/16/2024) * HISTONE ANTIBODY(Performed 10/16/2024) Performed for Localized scleroderma, Polyarthralgia * RIBOSOMAL P PROTEIN ANTIBODY(Performed 10/16/2024) Performed for Localized scleroderma, Polyarthralgia * FINISHING INSPECTOR ANTIBODY(Performed 10/16/2024) Performed for Localized scleroderma, Polyarthralgia * URINALYSIS W/MICROSCOPIC NO CULTURE(Performed 10/16/2024) Performed for Localized scleroderma, Polyarthralgia * ERYTHROCYTE SEDIMENTATION RATE(Performed 10/16/2024) Performed for Localized scleroderma, Polyarthralgia * C-REACTIVE PROTEIN(Performed 10/16/2024) Performed for Localized scleroderma, Polyarthralgia * COMPREHENSIVE METABOLIC PANEL(Performed 10/16/2024) Performed for Localized scleroderma, Polyarthralgia * CK BLOOD(Performed 10/16/2024) Performed for Localized scleroderma, Polyarthralgia * CBC W AUTO DIFFERENTIAL(Performed 10/16/2024) Performed for Localized scleroderma, Polyarthralgia * ALDOLASE(Performed 10/16/2024) Performed for Localized scleroderma, Polyarthralgia * SS-B (SJOGREN'S) ANTIBODY(Performed 10/16/2024) Performed for Localized scleroderma, Polyarthralgia * SS-A (SJOGREN'S) ANTIBODY(Performed 10/16/2024) Performed for Localized scleroderma, Polyarthralgia * MCCULLOUGH (SM) ANTIBODY LEO(Performed 10/16/2024) Performed for Localized scleroderma, Polyarthralgia * SCLEROSIS 12 ANTIBODY PNL(Performed 10/16/2024) Performed for Localized scleroderma, Polyarthralgia * RHEUMATOID FACTOR BLOOD QUANTITATIVE(Performed 10/16/2024) Performed for Localized scleroderma, Polyarthralgia * HINA-1 ANTIBODY(Performed 10/16/2024) Performed for Localized scleroderma, Polyarthralgia * IMMUNOGLOBULINS IGG/IGM/IGA PANEL(Performed 10/16/2024) Performed for Localized scleroderma, Polyarthralgia * BETA-2 GLYCOPROTEIN 1 ANTIBODY IGG/IGM/IGA PANEL(Performed 10/16/2024) Performed for Localized scleroderma, Polyarthralgia * CARDIOLIPIN ANTIBODY IGA(Performed 10/16/2024) Performed for Localized scleroderma, Polyarthralgia * CARDIOLIPIN ANTIBODY IGG(Performed 10/16/2024) Performed for Localized scleroderma, Polyarthralgia * CARDIOLIPIN ANTIBODY IGM(Performed 10/16/2024) Performed for Localized scleroderma, Polyarthralgia * CHROMATIN ANTIBODY(Performed 10/16/2024) Performed for Localized scleroderma, Polyarthralgia * COMPLEMENT C3(Performed 10/16/2024) Performed for Localized scleroderma, Polyarthralgia * COMPLEMENT C4(Performed 10/16/2024) Performed for Localized scleroderma, Polyarthralgia * COMPLEMENT TOTAL(Performed 10/16/2024) Performed for Localized scleroderma, Polyarthralgia * DNA ANTIBODY DOUBLE STRANDED(Performed 10/16/2024) Performed for Localized scleroderma, Polyarthralgia * DNA ANTIBODY DS CRITHIDIA W/REFLEX TITER(Performed 10/16/2024) Performed for Localized scleroderma, Polyarthralgia * [place] BLOOD SCREEN W/REFLEX TITER(Performed 10/16/2024) Performed for Localized scleroderma, Polyarthralgia * XR FOOT RIGHT 3VW OR MORE(Performed 10/02/2024) Performed for Localized scleroderma, Polyarthralgia * XR FOOT LEFT 3VW OR MORE(Performed 10/02/2024) Performed for Localized scleroderma, Polyarthralgia * XR HAND RIGHT 3VW OR MORE(Performed 10/02/2024) Performed for Localized scleroderma, Polyarthralgia * XR HAND LEFT 3VW OR MORE(Performed 10/02/2024) Performed for Localized scleroderma, Polyarthralgia * MN NASAL ENDOSCOPY,DX(Performed 10/01/2024) Performed for Samter's triad ([facility]), Chronic rhinosinusitis, Nasal congestion, Rhinitis, unspecifiedtype * CT CHEST WO CONT AND HIRES(Performed 06/23/2024) Performed for Persistent asthma with undetermined severity ([facility]), Chronic obstructive pulmonary disease, unspecified COPD type ([facility]), Recurrent respiratory infection, Lung nodule, CVID (common variable immunodeficiency) ([facility]) * MN ENDO NASAL SINUS BX POLYP DEBRID COREY(Performed 04/29/2024) Performed for Chronic pansinusitis * MN LARYNGOSCOPY,FLEX FIBER,DIAGNOSTIC(Performed 04/29/2024) Performed for Chronic pansinusitis, Snoring * PROC SINUS ENDOSCOPY(Performed 04/11/2024) Performed for Chronic pansinusitis, 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[facility]), CVID (common variable immunodeficiency) ([facility]) * CULTURE RESPIRATORY+GRAM STAIN (STL)(Performed 04/09/2024) Performed for Chronic pansinusitis * FRACTIONAL EXHALED NITRIC OXIDE(Performed 04/04/2024) Performed for CVID (common variable immunodeficiency) ([facility]) * CARBON MONOXIDE DIFFUSER CAPACITY (DLCO)(Performed 04/04/2024) Performed for CVID (common variable immunodeficiency) ([facility]) * COMPLETE PFT W/WO BRONCHODILATOR(Performed 04/04/2024) Performed for CVID (common variable immunodeficiency) ([facility]) * MN PUNCH BX SKIN EA SEP ADDL(Performed 03/26/2024) Performed for Rash and other nonspecific skin eruption * MN PUNCH BX SKIN SINGLE LESION(Performed 03/26/2024) Performed for Rash and other nonspecific skin eruption * DERMATOPATHOLOGY(Performed 03/26/2024) Performed for Rash and other nonspecific skin eruption * MN EAR MICROSCOPY EXAMINATION(Performed 03/17/2024) Performed for Dysfunction of both eustachian tubes * CT TEMPORAL BONES WO CONTRAST(Performed 03/17/2024) Performed for Polyp of both middle ears * AUDIOLOGY/TYMPANOMETRY ORDER(Performed 03/13/2024) * COMPREHENSIVE METABOLIC PANEL(Performed 02/21/2024) Performed for CVID (common variable immunodeficiency) ([facility]) * CBC W AUTO DIFFERENTIAL(Performed 02/21/2024) Performed for CVID (common variable immunodeficiency) ([facility]) * CULTURE SPUTUM+GRAM STAIN(Performed 02/21/2024) Performed for Severe persistent asthma with acute exacerbation ([facility]) * MN EAR MICROSCOPY EXAMINATION(Performed 02/21/2024) Performed for Excessive cerumen in both ear canals * T3 TOTAL(Performed 01/31/2024) Performed for Louise's thyroiditis * T4 FREE(Performed 01/31/2024) Performed for Louise's thyroiditis * TSH(Performed 01/31/2024) Performed for Louise's thyroiditis * CT CHEST WO CONT AND HIRES(Performed 11/26/2023) Performed for Severe persistent asthma with acute exacerbation ([facility]), Chronic obstructive pulmonarydisease, unspecified COPD type ([facility]), Recurrent respiratory infection, CVID (common variable immunodeficiency) ([facility]), Lung nodule * MN ENDO NASAL SINUS BX POLYP DEBRID COREY(Performed 11/21/2023) Performed for Samter's triad ([facility]) * FLOW CYTOMETRY LCARITA MEDIUM PANEL(Performed 08/21/2023) Performed for CVID (common variable immunodeficiency) ([facility]) * [place] BLOOD SCREEN W/REFLEX TITER(Performed 08/21/2023) Performed for Arthralgia, unspecified joint * CBC W AUTO DIFFERENTIAL(Performed 08/21/2023) Performed for CVID (common variable immunodeficiency) ([facility]) * XR CHEST 2VW INSPIR EXPIRATION(Performed 05/25/2023) Performed for Postprocedural pneumothorax * XR CHEST 1VW PORTABLE(Performed 05/19/2023) Performed for Pleuritic chest pain * XR CHEST 1VW PORTABLE(Performed 05/19/2023) Performed for SOB (shortness of breath) * CBC W/O DIFFERENTIAL(Performed 05/19/2023) Performed for SOB (shortness of breath) * BASIC METABOLIC PANEL (CALCIUM TOTAL)(Performed 05/19/2023) Performed for SOB (shortness of breath) * XR CHEST 1VW PORTABLE(Performed 05/18/2023) Performed for SOB (shortness of breath) * TYPE + SCREEN PANEL(Performed 05/18/2023) * CBC W AUTO DIFFERENTIAL(Performed 05/18/2023) * COMPREHENSIVE METABOLIC PANEL(Performed 05/18/2023) * CT CHEST WO CONTRAST(Performed 05/18/2023) Performed for Lung nodule, Bronchiectasis without complication (HCC), CVID (common variable immunodeficiency) (HCC), Chronic obstructive pulmonary disease, unspecified COPD type (HCC), Persistent asthma with undetermined severity (HCC) * QUANTIFERON TB-GOLD(Performed 04/24/2023) * IGG BLOOD(Performed 02/08/2023) * THEOPHYLLINE LEVEL(Performed 02/08/2023) * CT CHEST WO CONT AND HIRES(Performed 01/18/2023) Performed for Persistent asthma with undetermined severity (HCC), CVID (common variable immunodeficiency) (HCC), Multiple lung nodules on CT, Chronic obstructive pulmonary disease, unspecified COPD type (HCC) * FRACTIONAL EXHALED NITRIC OXIDE(Performed 11/01/2022) Performed for Persistent asthma with undetermined severity (HCC) * PFT-LAB(Performed 11/01/2022) Performed for Persistent asthma with undetermined severity (HCC) * CULTURE SPUTUM+GRAM STAIN(Performed 10/15/2022) Performed for Persistent asthma with undetermined severity (HCC) * COMPREHENSIVE METABOLIC PANEL(Performed 07/06/2022) Performed for CVID (common variable immunodeficiency) (HCC) * MN EAR MICROSCOPY EXAMINATION(Performed 07/06/2022) Performed for Dysfunction of both eustachian tubes * MN ENDO NASAL SINUS BX POLYP DEBRID COREY(Performed 06/21/2022) Performed for Samter's triad (HCC), CVID (common variable immunodeficiency) (HCC), Chronic pansinusitis * CULTURE TISSUE+GRAM STAIN(Performed 06/08/2022) Performed for Samter's triad (HCC) * CULTURE FUNGUS OTHER+FUNGUS SMEAR(Performed 06/08/2022) Performed for Samter's triad (HCC) * CULTURE ANAEROBE(Performed 06/08/2022) Performed for Samter's triad (HCC) * CULTURE FUNGUS OTHER+FUNGUS SMEAR(Performed 06/08/2022) Performed for Samter's triad (HCC) * CULTURE ANAEROBE(Performed 06/08/2022) Performed for Samter's triad (HCC) * CULTURE TISSUE+GRAM STAIN(Performed 06/08/2022) Performed for Samter's triad (HCC) * PATHOLOGY TISSUE(Performed 06/08/2022) Performed for Samter's triad (HCC), Chronic pansinusitis, Perforation of tympanic membrane, right, Dysfunction of both eustachian tubes, Polyp of both middle ears * ENDOTRACHEAL TUBE NOTE(Performed 06/08/2022) * ENDOSCOPIC SINUS/NASAL SURGERY(Performed 06/08/2022) Performed for Samter's triad (HCC), Chronic pansinusitis, Perforation of tympanic membrane, right, Dysfunction of both eustachian tubes, Polyp of both middle ears * MYRINGOTOMY/ NASAL INFLATION EUSTACHIAN TUBE(Performed 06/08/2022) Performed for Samter's triad (HCC), Chronic pansinusitis, Perforation of tympanic membrane, right, Dysfunction of both eustachian tubes, Polyp of both middle ears * BASIC METABOLIC PANEL (CALCIUM TOTAL)(Performed 06/08/2022) Performed for Pre-op evaluation * CBC W/O DIFFERENTIAL(Performed 05/29/2022) Performed for Pre-op exam * AUDIOLOGY/TYMPANOMETRY ORDER(Performed 02/23/2022) * MN ENDO NASAL SINUS BX POLYP DEBRID RT SIDE(Performed 02/01/2022) Performed for Chronic pansinusitis, Samter's triad (HCC), Tympanic membrane perforation, right, Tympanic membrane perforation, left * MN EAR MICROSCOPY EXAMINATION(Performed 02/01/2022) Performed for Chronic pansinusitis, Samter's triad (HCC), Tympanic membrane perforation, right, Tympanic membrane perforation, left * XR CHEST 2VW(Performed 02/01/2022) Performed for Chronic pansinusitis, Samter's triad (HCC), Tympanic membrane perforation, right, Tympanic membrane perforation, left * IMMUNOSCORE IGE INTERP(Performed 12/07/2021) Performed for Non-seasonal allergic rhinitis, unspecified trigger * ALLERGEN RESPIRATORY PNL REGION 8 ([place])(Performed 12/07/2021) Performed for Non-seasonal allergic rhinitis, unspecified trigger * IMMUNOSCORE IGE INTERP(Performed 08/18/2021) Performed for Nonallergic rhinitis * CBC W AUTO DIFFERENTIAL(Performed 08/18/2021) Performed for Poorly controlled severe persistent asthma without complication (HCC) * ALLERGEN SOYBEAN IGE(Performed 08/18/2021) Performed for Food allergy * ALLERGEN RESPIRATORY PNL REGION 8 ([place])(Performed 08/18/2021) Performed for Nonallergic rhinitis * MN EAR MICROSCOPY EXAMINATION(Performed 06/13/2021) Performed for Dysfunction of both eustachian tubes * AUDIOLOGY/TYMPANOMETRY ORDER(Performed 06/13/2021) * IGG BLOOD(Performed 06/13/2021) Performed for CVID (common variable immunodeficiency) ([facility]) * CARDIAC RHYTHM STRIP ORDER(Performed 05/19/2021) * CULTURE FUNGUS OTHER+FUNGUS SMEAR(Performed 05/16/2021) Performed for Diagnosis unknown * CULTURE TISSUE+GRAM STAIN(Performed 05/16/2021) Performed for Diagnosis unknown * CULTURE ANAEROBE(Performed 05/16/2021) Performed for Diagnosis unknown * GROSS EXAM PATHOLOGY (STL)(Performed 05/16/2021) Performed for Diagnosis unknown * ENDOTRACHEAL TUBE NOTE(Performed 05/16/2021) * HCG URINE QUAL POCT NOTIFICATION(Performed 05/16/2021) Performed for Pre-op testing * MN LAP,CHOLECYSTECTOMY(Performed 05/16/2021) Performed for Diagnosis unknown * HCG URINE QUALITATIVE - POCT (IP) INTERFACED(Performed 05/16/2021) * NM HEPATOBILIARY W EF(Performed 04/19/2021) Performed for Right upper quadrant abdominal pain * US ABDOMEN LIMITED(Performed 04/04/2021) Performed for Biliary colic * CT ABDOMEN PELVIS W CONTRAST(Performed 03/18/2021) Performed for Fever, unspecified fever cause * CBC W AUTO DIFFERENTIAL(Performed 03/18/2021) Performed for Fever, unspecified fever cause * CREATININE - POCT INTERFACED(Performed 03/18/2021) * MN EAR MICROSCOPY EXAMINATION(Performed 02/17/2021) Performed for Dysfunction of both eustachian tubes * CARDIAC RHYTHM STRIP ORDER(Performed 02/02/2021) * BASIC METABOLIC PANEL (CALCIUM TOTAL)(Performed 02/01/2021) Performed for Intra-abdominal abscess (HCC) * CBC W/O DIFFERENTIAL(Performed 02/01/2021) Performed for Intra-abdominal abscess (HCC) * BASIC METABOLIC PANEL (CALCIUM TOTAL)(Performed 01/31/2021) Performed for Intra-abdominal abscess (HCC) * CBC W/O DIFFERENTIAL(Performed 01/31/2021) Performed for Intra-abdominal abscess (HCC) * MAGNESIUM BLOOD(Performed 01/30/2021) * BASIC METABOLIC PANEL (CALCIUM TOTAL)(Performed 01/30/2021) Performed for Intra-abdominal abscess (HCC) * CBC W/O DIFFERENTIAL(Performed 01/30/2021) Performed for Intra-abdominal abscess (HCC) * BASIC METABOLIC PANEL (CALCIUM TOTAL)(Performed 01/29/2021) Performed for Intra-abdominal abscess (HCC) * CBC W/O DIFFERENTIAL(Performed 01/29/2021) Performed for Intra-abdominal abscess (HCC) * ENDOTRACHEAL TUBE NOTE(Performed 01/28/2021) * CULTURE ABSCESS+GRAM STAIN(Performed 01/28/2021) Performed for Diagnosis unknown * CULTURE ANAEROBE(Performed 01/28/2021) Performed for Diagnosis unknown * CULTURE FLUID+GRAM STAIN(Performed 01/28/2021) Performed for Diagnosis unknown * CULTURE ANAEROBE(Performed 01/28/2021) Performed for Diagnosis unknown * MN LAP,DIAGNOSTIC ABDOMEN(Performed 01/28/2021) Performed for Diagnosis unknown * BASIC METABOLIC PANEL (CALCIUM TOTAL)(Performed 01/28/2021) Performed for Intra-abdominal abscess (HCC) * CBC W/O DIFFERENTIAL(Performed 01/28/2021) Performed for Intra-abdominal abscess (HCC) * HCG URINE QUALITATIVE(Performed 01/27/2021) Performed for Intra-abdominal abscess (HCC) * EKG 12-LEAD(Performed 01/27/2021) Performed for Poorly controlled severe persistent asthma without complication (HCC), CVID (common variable immunodeficiency) (HCC), Recurrent respiratory infection * BASIC METABOLIC PANEL (CALCIUM TOTAL)(Performed 01/27/2021) Performed for Intra-abdominal abscess (HCC) * CBC W/O DIFFERENTIAL(Performed 01/27/2021) Performed for Intra-abdominal abscess (HCC) * OT EVAL AND TREAT(Performed 01/26/2021) * PT EVAL AND TREAT(Performed 01/26/2021) * CT PELVIS WO CONTRAST(Performed 01/26/2021) Performed for Intra-abdominal abscess (HCC) * PT-INR(Performed 01/26/2021) Performed for Intra-abdominal abscess (HCC) * CBC W/O DIFFERENTIAL(Performed 01/26/2021) * SLIDE SCAN HEMATOLOGY(Performed 01/26/2021) * MAGNESIUM BLOOD(Performed 01/26/2021) * RENAL FUNCTION PANEL(Performed 01/26/2021) * CBC W AUTO DIFFERENTIAL(Performed 01/26/2021) * SARS-COV-2 (COVID-19) RAPID(Performed 01/26/2021) * XR CHEST 1VW(Performed 01/25/2021) Performed for Intra-abdominal abscess (HCC) * MAGNESIUM BLOOD(Performed 01/25/2021) * LACTIC ACID BLOOD(Performed 01/25/2021) * COMPREHENSIVE METABOLIC PANEL(Performed 01/25/2021) * CULTURE BLOOD(Performed 01/25/2021) * CULTURE BLOOD(Performed 01/25/2021) * ENDOTRACHEAL TUBE NOTE(Performed 12/28/2020) * LAPAROSCOPIC REPAIR VENTRAL HERNIA(Performed 12/28/2020) Performed for Incisional hernia with obstruction but no gangrene * TYPE + SCREEN PANEL(Performed 12/28/2020) * BASIC METABOLIC PANEL (CALCIUM TOTAL)(Performed 12/28/2020) Performed for Pre-op evaluation * SARS-COV-2 (COVID-19) IN HOUSE(Performed 12/24/2020) Performed for S/P laparoscopic-assisted sigmoidectomy * MN EAR MICROSCOPY EXAMINATION(Performed 12/20/2020) Performed for Mixed conductive and sensorineural hearing loss of right ear with restricted hearing of left ear * SARS-COV-2 (COVID-19) ANTIBODY IGG(Performed 12/20/2020) Performed for COVID-19 virus infection * BASIC METABOLIC PANEL (CALCIUM TOTAL)(Performed 11/19/2020) Performed for Pre-op evaluation * CBC W/O DIFFERENTIAL(Performed 11/19/2020) Performed for Pre-op evaluation * SARS-COV-2 (COVID-19) IN HOUSE(Performed 11/19/2020) Performed for Incisional hernia, without obstruction or gangrene * PROC DESTRUCT BENIGN LESION NOT SKIN TAG(Performed 11/15/2020) Performed for Inflamed seborrheic keratosis * MN EAR MICROSCOPY EXAMINATION(Performed 11/08/2020) Performed for Dysfunction of both eustachian tubes * AUDIOLOGY/TYMPANOMETRY ORDER(Performed 11/08/2020) * PATHOLOGY TISSUE(Performed 10/11/2020) Performed for Screen for colon cancer * COLONOSCOPY SCREEN(Performed 10/11/2020) Performed for Screen for colon cancer * ENDOSCOPY, COLON, SCREENING(Performed 10/11/2020) * CULTURE WOUND+GRAM STAIN(Performed 10/07/2020) Performed for Acute mucoid otitis media of right ear * MN EAR MICROSCOPY EXAMINATION(Performed 10/07/2020) Performed for Dysfunction of both eustachian tubes * MN NASAL ENDOSCOPY,DX(Performed 09/29/2020) Performed for Chronic pansinusitis, Samter's triad (HCC), Nasal polyps * MN EAR MICROSCOPY EXAMINATION(Performed 09/01/2020) Performed for Otorrhea of right ear, Samter's triad (HCC) * CULTURE WOUND+GRAM STAIN(Performed 09/01/2020) Performed for Otorrhea of right ear * US TRANSVAGINAL NON OB(Performed 09/01/2020) Performed for Abnormal abdominal CT scan * US PELVIS COMPLETE(Performed 09/01/2020) Performed for Abnormal CT scan, pelvis, Right pelvic adnexal fluid collection * CT ABDOMEN PELVIS W CONTRAST(Performed 08/20/2020) Performed for Lower abdominal pain, Constipation, unspecified constipation type, Sigmoid stricture (HCC) * CREATININE - POCT INTERFACED(Performed 08/20/2020) * MN ENDO NASAL SINUS BX POLYP DEBRID COREY(Performed 06/23/2020) Performed for Nasal polyps, Samter's triad (HCC), Dysfunction of both eustachian tubes, Anosmia * MN REMOVE CERUMEN IMPACTED W INSTR COREY(Performed 06/23/2020) Performed for Otorrhea of both ears, Nasal polyps, Samter's triad (HCC), Dysfunction of both eustachian tubes, Anosmia * MN NASAL SCOPE,BX/RMV POLYP/DEBRID(Performed 06/17/2020) Performed for Diagnosis unknown * MN TYMPANOPLAS/MASTOIDECTOMY(Performed 06/17/2020) Performed for Diagnosis unknown * ENDOTRACHEAL TUBE NOTE(Performed 06/17/2020) * HCG URINE QUALITATIVE - POCT (IP) INTERFACED(Performed 06/17/2020) * HCG URINE QUAL POCT NOTIFICATION(Performed 06/17/2020) Performed for Preop examination * SARS-COV-2 (COVID-19) IN HOUSE(Performed 06/14/2020) Performed for Dysfunction of both eustachian tubes, Otorrhea of both ears, 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 * MN EAR MICROSCOPY EXAMINATION(Performed 05/10/2020) Performed for 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 * CARDIAC EKG ORDER(Performed 04/14/2020) * PHOSPHORUS BLOOD(Performed 04/12/2020) * MAGNESIUM BLOOD(Performed 04/12/2020) * CBC W AUTO DIFFERENTIAL(Performed 04/12/2020) * BASIC METABOLIC PANEL (CALCIUM TOTAL)(Performed 04/12/2020) * PHOSPHORUS BLOOD(Performed 04/11/2020) * MAGNESIUM BLOOD(Performed 04/11/2020) * CBC W AUTO DIFFERENTIAL(Performed 04/11/2020) * BASIC METABOLIC PANEL (CALCIUM TOTAL)(Performed 04/11/2020) * GLUCOSE - POINT OF CARE(Performed 04/10/2020) * GLUCOSE - POINT OF CARE(Performed 04/10/2020) * PHOSPHORUS BLOOD(Performed 04/10/2020) * MAGNESIUM BLOOD(Performed 04/10/2020) * CBC W AUTO DIFFERENTIAL(Performed 04/10/2020) * BASIC METABOLIC PANEL (CALCIUM TOTAL)(Performed 04/10/2020) * PT EVAL AND TREAT(Performed 04/09/2020) * OT EVAL AND TREAT(Performed 04/09/2020) * PATHOLOGY TISSUE(Performed 04/09/2020) Performed for Colon stricture (HCC) * MN SIGMOIDOSCOPY,DIAGNOSTIC(Performed 04/09/2020) Performed for Colon stricture (HCC) * MN LAPARSCOPIC PARTIAL COLECTOMY(Performed 04/09/2020) Performed for Colon stricture (HCC) * ENDOTRACHEAL TUBE NOTE(Performed 04/09/2020) * TYPE + SCREEN PANEL(Performed 04/09/2020) * EKG 12-LEAD(Performed 04/09/2020) Performed for Body mass index (bmi) 36.0-36.9, adult, 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), Colonic stricture (HCC) * HCG URINE QUALITATIVE - POCT (IP) INTERFACED(Performed 04/09/2020) * HCG URINE QUAL POCT NOTIFICATION(Performed 04/09/2020) Performed for Chronic pansinusitis * TYPE + SCREEN PANEL(Performed 04/07/2020) Performed for Poorly controlled severe persistent asthma without complication (HCC) * BASIC METABOLIC PANEL (CALCIUM TOTAL)(Performed 04/07/2020) Performed for Poorly controlled severe persistent asthma without complication (HCC) * CBC W AUTO DIFFERENTIAL(Performed 04/07/2020) Performed for Poorly controlled severe persistent asthma without complication (HCC) * SARS-COV-2 (COVID-19) IN HOUSE(Performed 04/07/2020) Performed for Colonic stricture (HCC) * IGG BLOOD(Performed 04/06/2020) Performed for Poorly controlled severe persistent asthma without complication ([facility]) * ENDOSCOPY, COLON, DIAGNOSTIC(Performed 12/24/2019) * PATHOLOGY TISSUE(Performed 12/24/2019) Performed for Colonic stricture (HCC), Gastroesophageal reflux disease, esophagitis presence not specified * MN COLONOSCOPY, DIAGNOSTIC(Performed 12/24/2019) Performed for Colonic stricture (HCC), Gastroesophageal reflux disease, esophagitis presence not specified * MN ED EGD FLEX TRANSORAL DX(Performed 12/24/2019) Performed for Colonic stricture (HCC), Gastroesophageal reflux disease, esophagitis presence not specified * HCG URINE QUAL POCT NOTIFICATION(Performed 12/24/2019) Performed for Preop examination * EGD(Performed 12/24/2019) * HCG URINE QUALITATIVE - POCT (IP) INTERFACED(Performed 12/24/2019) * CULTURE RESPIRATORY LOWER(Performed 12/16/2019) * FRACTIONAL EXHALED NITRIC OXIDE(Performed 12/09/2019) Performed for Poorly controlled severe persistent asthma without complication ([facility]), Chronic obstructive pulmonary disease, unspecified COPD type ([facility]) * PFT-LAB(Performed 12/09/2019) Performed for Poorly controlled severe persistent asthma without complication (HCC), Chronic obstructive pulmonary disease, unspecified COPD type (HCC) * MN REMOVE CERUMEN IMPACTED W INSTR RT EAR(Performed 07/30/2019) Performed for Samter's triad ([facility]) * MN ENDO NASAL SINUS BX POLYP DEBRID COREY(Performed 07/30/2019) Performed for Samter's triad ([facility]), Chronic pansinusitis, Nasal polyps * PROC TYMPANOSTOMY WITH TUBES(Performed 07/04/2019) Performed for Right otitis media with effusion * CT TEMPORAL BONES WO CONTRAST(Performed 06/20/2019) Performed for Cholesteatoma of left ear * CULTURE ABSCESS+GRAM STAIN(Performed 06/18/2019) Performed for Nasal polyps * MN ENDO NASAL SINUS BX POLYP DEBRID LT SIDE(Performed 06/18/2019) Performed for PND (post-nasal drip), Nasal crusting * CULTURE RESPIRATORY LOWER(Performed 06/04/2019) * IMAGING/RADIOLOGY/XRAY RESULTS ORDER(Performed 05/28/2019) * TSH(Performed 05/13/2019) * IGG BLOOD(Performed 05/13/2019) * BASIC METABOLIC PANEL (CALCIUM TOTAL)(Performed 05/13/2019) * CARDIAC EKG ORDER(Performed 04/14/2019) * CARDIAC EKG ORDER(Performed 03/12/2019) * ENDOTRACHEAL TUBE NOTE(Performed 03/11/2019) * LAPAROSCOPIC REPAIR UMBILICAL HERNIA(Performed 03/11/2019) Performed for Umbilical hernia without obstruction and without gangrene * HCG URINE QUALITATIVE - POINT OF CARE(Performed 03/11/2019) Performed for Pre-op testing * BASIC METABOLIC PANEL (CALCIUM TOTAL)(Performed 02/24/2019) Performed for Pre-op testing * EKG 12-LEAD(Performed 02/24/2019) Performed for Pre-op testing * FRACTIONAL EXHALED NITRIC OXIDE(Performed 01/16/2019) Performed for Poorly controlled severe persistent asthma without complication ([facility]), CVID (common variable immunodeficiency) ([facility]), Non-seasonal allergic rhinitis, unspecified trigger * SIX MINUTE WALK(Performed 01/16/2019) Performed for Poorly controlled severe persistent asthma without complication ([facility]), CVID (common variable immunodeficiency) ([facility]), Non-seasonal allergic rhinitis, unspecified trigger * PFT-LAB(Performed 01/16/2019) Performed for Poorly controlled severe persistent asthma without complication ([facility]), CVID (common variable immunodeficiency) ([facility]), Non-seasonal allergic rhinitis, unspecified trigger * MN NASAL ENDOSCOPY,DX(Performed 01/09/2019) Performed for Samter's triad ([facility]) * IMAGING/RADIOLOGY/XRAY RESULTS ORDER(Performed 01/02/2019) * IMAGING/RADIOLOGY/XRAY RESULTS ORDER(Performed 01/02/2019) * IMAGING/RADIOLOGY/XRAY RESULTS ORDER(Performed 01/02/2019) * DNA ANTIBODY DS CRITHIDIA W/REFLEX TITER(Performed 12/25/2018) * COMPLEMENT C1 ESTERASE INHIBITOR FUNCTION ACTIVITY(Performed 12/25/2018) Performed for Dyspnea, unspecified type, Fever, unspecified fever cause, Arthralgia of lower leg, unspecified laterality, Fatigue, unspecified type, Hypovitaminosis D * ANCA SCREEN W MPO+PR3 W REFEX ANCA TITER(Performed 12/25/2018) Performed for Chronic pansinusitis, Dyspnea, unspecified type, Fever, unspecified fever cause, Arthralgia of lower leg, unspecified laterality, Fatigue, unspecified type, False positive [place], Hypovitaminosis D * FINISHING INSPECTOR ANTIBODY(Performed 12/25/2018) Performed for Chronic pansinusitis, Dyspnea, unspecified type, Fever, unspecified fever cause, Arthralgia of lower leg, unspecified laterality, Fatigue, unspecified type, False positive [place], Hypovitaminosis D * [place] (SM) ANTIBODY LEO(Performed 12/25/2018) Performed for Chronic pansinusitis, Dyspnea, unspecified type, Fever, unspecified fever cause, Arthralgia of lower leg, unspecified laterality, Fatigue, unspecified type, False positive [place], Hypovitaminosis D * SS-A/SS-B (SJOGREN'S) ANTIBODY PANEL(Performed 12/25/2018) Performed for Chronic pansinusitis, Dyspnea, unspecified type, Fever, unspecified fever cause, Arthralgia of lower leg, unspecified laterality, Fatigue, unspecified type, False positive [place], Hypovitaminosis D * TISSUE TRANSGLUTAMINASE AB IGG(Performed 12/25/2018) Performed for Chronic pansinusitis, Dyspnea, unspecified type, Fever, unspecified fever cause, Arthralgia of lower leg, unspecified laterality, Fatigue, unspecified type, False positive [place], Hypovitaminosis D * TISSUE TRANSGLUTAMINASE AB IGA(Performed 12/25/2018) Performed for Chronic pansinusitis, Dyspnea, unspecified type, Fever, unspecified fever cause, Arthralgia of lower leg, unspecified laterality, Fatigue, unspecified type, False positive [place], Hypovitaminosis D * COMPLEMENT TOTAL(Performed 12/25/2018) Performed for Chronic pansinusitis, Dyspnea, unspecified type, Fever, unspecified fever cause, Arthralgia of lower leg, unspecified laterality, Fatigue, unspecified type, False positive [place], Hypovitaminosis D * COMPLEMENT C4(Performed 12/25/2018) Performed for Chronic pansinusitis, Dyspnea, unspecified type, Fever, unspecified fever cause, Arthralgia of lower leg, unspecified laterality, Fatigue, unspecified type, False positive [place], Hypovitaminosis D * COMPLEMENT C3(Performed 12/25/2018) Performed for Chronic pansinusitis, Dyspnea, unspecified type, Fever, unspecified fever cause, Arthralgia of lower leg, unspecified laterality, Fatigue, unspecified type, False positive [place], Hypovitaminosis D * CHROMATIN ANTIBODY(Performed 12/25/2018) Performed for Chronic pansinusitis, Dyspnea, unspecified type, Fever, unspecified fever cause, Arthralgia of lower leg, unspecified laterality, Fatigue, unspecified type, False positive [place], Hypovitaminosis D * [place] BLOOD SCREEN W/REFLEX TITER(Performed 12/25/2018) Performed for Chronic pansinusitis, Dyspnea, unspecified type, Fever, unspecified fever cause, Arthralgia of lower leg, unspecified laterality, Fatigue, unspecified type, False positive [place], Hypovitaminosis D * THYROGLOBULIN ANTIBODY(Performed 12/25/2018) Performed for Chronic pansinusitis, Dyspnea, unspecified type, Fever, unspecified fever cause, Arthralgia of lower leg, unspecified laterality, Fatigue, unspecified type, False positive [place], Hypovitaminosis D * THYROID PEROXIDASE ANTIBODY(Performed 12/25/2018) Performed for Chronic pansinusitis, Dyspnea, unspecified type, Fever, unspecified fever cause, Arthralgia of lower leg, unspecified laterality, Fatigue, unspecified type, False positive [place], Hypovitaminosis D * TSH REFLEX FREE T4(Performed 12/25/2018) Performed for Chronic pansinusitis, Dyspnea, unspecified type, Fever, unspecified fever cause, Arthralgia of lower leg, unspecified laterality, Fatigue, unspecified type, False positive [place], Hypovitaminosis D * URINALYSIS W/MICROSCOPIC REFLEX TO CULTURE(Performed 12/25/2018) Performed for Chronic pansinusitis, Dyspnea, unspecified type, Fever, unspecified fever cause, Arthralgia of lower leg, unspecified laterality, Fatigue, unspecified type, False positive [place], Hypovitaminosis D * VITAMIN D 25-HYDROXY(Performed 12/25/2018) Performed for Chronic pansinusitis, Dyspnea, unspecified type, Fever, unspecified fever cause, Arthralgia of lower leg, unspecified laterality, Fatigue, unspecified type, False positive [place], Hypovitaminosis D * FERRITIN(Performed 12/25/2018) Performed for Chronic pansinusitis, Dyspnea, unspecified type, Fever, unspecified fever cause, Arthralgia of lower leg, unspecified laterality, Fatigue, unspecified type, False positive [place], Hypovitaminosis D * ERYTHROCYTE SEDIMENTATION RATE(Performed 12/25/2018) Performed for Chronic pansinusitis, Dyspnea, unspecified type, Fever, unspecified fever cause, Arthralgia of lower leg, unspecified laterality, Fatigue, unspecified type, False positive [place], Hypovitaminosis D * C-REACTIVE PROTEIN(Performed 12/25/2018) Performed for Chronic pansinusitis, Dyspnea, unspecified type, Fever, unspecified fever cause, Arthralgia of lower leg, unspecified laterality, Fatigue, unspecified type, False positive [place], Hypovitaminosis D * COMPREHENSIVE METABOLIC PANEL(Performed 12/25/2018) Performed for Chronic pansinusitis, Dyspnea, unspecified type, Fever, unspecified fever cause, Arthralgia of lower leg, unspecified laterality, Fatigue, unspecified type, False positive [place], Hypovitaminosis D * CBC W AUTO DIFFERENTIAL(Performed 12/25/2018) Performed for Chronic pansinusitis, Dyspnea, unspecified type, Fever, unspecified fever cause, Arthralgia of lower leg, unspecified laterality, Fatigue, unspecified type, False positive [place], Hypovitaminosis D * CULTURE URINE REFLEXED I(Performed 12/25/2018) * CBC W AUTO DIFFERENTIAL(Performed 11/08/2018) Performed for CVID (common variable immunodeficiency) ([facility]) * CARDIAC EKG ORDER(Performed 11/06/2018) * XR ABD OBSTR SERIES W CHEST 1VW(Performed 10/18/2018) Performed for Constipation, unspecified constipation type * MN ENDO NASAL SINUS BX POLYP DEBRID COREY(Performed 09/26/2018) Performed for Chronic pansinusitis, Nasal polyps * CARDIAC EKG ORDER(Performed 09/17/2018) * CULTURE TISSUE+GRAM STAIN(Performed 09/16/2018) Performed for Nasal polyps * ENDOTRACHEAL TUBE NOTE(Performed 09/16/2018) * ENDOSCOPIC SINUS ETHMOID(Performed 09/16/2018) Performed for Chronic pansinusitis * HCG URINE QUALITATIVE - POINT OF CARE(Performed 09/16/2018) Performed for Poorly controlled severe persistent asthma without complication ([facility]) * COMPREHENSIVE METABOLIC PANEL(Performed 09/10/2018) * CBC W AUTO DIFFERENTIAL(Performed 09/10/2018) * FL LOWER GI(Performed 09/10/2018) Performed for Colon stricture ([facility]) * BASIC METABOLIC PANEL (CALCIUM TOTAL)(Performed 09/04/2018) Performed for Poorly controlled severe persistent asthma without complication (HCC), History of pulmonary embolism, COPD, moderate (HCC) * EKG 12-LEAD(Performed 09/04/2018) Performed for Poorly controlled severe persistent asthma without complication ([facility]) * PFT(Performed 08/14/2018) * CT ABDOMEN PELVIS W CONTRAST(Performed 08/05/2018) Performed for Abdominal pain, LUQ (left upper quadrant) * CREATININE BLOOD - POCT (IP) SLH(Performed 08/05/2018) Performed for Abdominal pain, LUQ (left upper quadrant) * CULTURE RESPIRATORY LOWER(Performed 07/26/2018) * MN ENDO NASAL SINUS BX POLYP DEBRID COREY(Performed 07/03/2018) Performed for Samter's triad ([facility]), Chronic pansinusitis, Anosmia, Otalgia of both ears * CBC W AUTO DIFFERENTIAL(Performed 05/15/2018) * IGG BLOOD(Performed 05/15/2018) Performed for CVID (common variable immunodeficiency) ([facility]) * PFT-LAB(Performed 04/07/2018) Performed for Poorly controlled severe persistent asthma without complication ([facility]) * FRACTIONAL EXHALED NITRIC OXIDE(Performed 04/07/2018) Performed for Allergic rhinitis, unspecified seasonality, unspecified trigger, Poorly controlled severe persistent asthma without complication ([facility]) * SIX MINUTE WALK(Performed 04/07/2018) Performed for Poorly controlled severe persistent asthma without complication ([facility]) * MN NASAL ENDOSCOPY,DX(Performed 03/20/2018) Performed for Chronic pansinusitis * CULTURE RESPIRATORY LOWER(Performed 02/27/2018) * MN BIOPSY OF SKIN LESION(Performed 02/12/2018) Performed for Rash and other nonspecific skin eruption * DERMATOPATHOLOGY(Performed 02/11/2018) Performed for Rash and other nonspecific skin eruption * BASIC METABOLIC PANEL (CALCIUM TOTAL)(Performed 09/06/2017) * BASIC METABOLIC PANEL (CALCIUM TOTAL)(Performed 09/05/2017) * CBC W AUTO DIFFERENTIAL(Performed 08/22/2017) * COMPREHENSIVE METABOLIC PANEL(Performed 08/22/2017) * IGG BLOOD(Performed 08/20/2017) * THEOPHYLLINE LEVEL(Performed 08/20/2017) * CULTURE AEROBIC(Performed 08/15/2017) * COMPLETE PFT W/WO BRONCHODILATOR(Performed 04/18/2017) * BLOOD GASES ART - PFT(Performed 04/17/2017) * PATHOLOGY TISSUE(Performed 03/19/2017) * CULTURE AEROBIC(Performed 03/19/2017) * HCG URINE QUALITATIVE - POCT (IP) [facility]H(Performed 03/19/2017) * BLOOD GASES ARTERIAL(Performed 03/19/2017) * CBC W AUTO DIFFERENTIAL(Performed 03/05/2017) * BASIC METABOLIC PANEL (CALCIUM TOTAL)(Performed 03/05/2017) * CBC W AUTO DIFFERENTIAL(Performed 03/05/2017) * CULTURE AEROBIC(Performed 02/07/2017) * CULTURE AEROBIC(Performed 09/27/2016) * METHICILLIN RAPID TEST(Performed 09/27/2016) * COMPLETE PFT W/WO BRONCHODILATOR(Performed 09/14/2016) * BLOOD GASES ART - PFT(Performed 09/14/2016) * CULTURE RESPIRATORY LOWER(Performed 08/28/2016) * CULTURE RESPIRATORY LOWER(Performed 06/07/2016) * CBC W AUTO DIFFERENTIAL(Performed 06/06/2016) * [place] BLOOD SCREEN W/REFLEX TITER(Performed 04/25/2016) * CBC W AUTO DIFFERENTIAL(Performed 04/25/2016) * IGG BLOOD(Performed 04/25/2016) * CULTURE AEROBIC(Performed 04/19/2016) * PHOSPHORUS BLOOD(Performed 04/05/2016) * MAGNESIUM BLOOD(Performed 04/05/2016) * BASIC METABOLIC PANEL (CALCIUM TOTAL)(Performed 04/05/2016) * CBC W AUTO DIFFERENTIAL(Performed 04/05/2016) * CBC W AUTO DIFFERENTIAL(Performed 04/05/2016) * PHOSPHORUS BLOOD(Performed 04/04/2016) * MAGNESIUM BLOOD(Performed 04/04/2016) * BASIC METABOLIC PANEL (CALCIUM TOTAL)(Performed 04/04/2016) * CBC W AUTO DIFFERENTIAL(Performed 04/04/2016) * CBC W AUTO DIFFERENTIAL(Performed 04/04/2016) * MAGNESIUM BLOOD(Performed 04/03/2016) * PHOSPHORUS BLOOD(Performed 04/03/2016) * BASIC METABOLIC PANEL (CALCIUM TOTAL)(Performed 04/03/2016) * CBC W AUTO DIFFERENTIAL(Performed 04/03/2016) * CBC W AUTO DIFFERENTIAL(Performed 04/03/2016) * PHOSPHORUS BLOOD(Performed 04/02/2016) * BASIC METABOLIC PANEL (CALCIUM TOTAL)(Performed 04/02/2016) * MAGNESIUM BLOOD(Performed 04/02/2016) * LACTIC ACID BLOOD(Performed 04/02/2016) * CBC W AUTO DIFFERENTIAL(Performed 04/02/2016) * CBC W AUTO DIFFERENTIAL(Performed 04/02/2016) * PHOSPHORUS BLOOD(Performed 04/01/2016) * MAGNESIUM BLOOD(Performed 04/01/2016) * CBC W AUTO DIFFERENTIAL(Performed 04/01/2016) * DIFFERENTIAL MANUAL(Performed 04/01/2016) * BASIC METABOLIC PANEL (CALCIUM TOTAL)(Performed 04/01/2016) * CBC W AUTO DIFFERENTIAL(Performed 04/01/2016) * CBC W AUTO DIFFERENTIAL(Performed 03/31/2016) * DIFFERENTIAL MANUAL(Performed 03/31/2016) * PHOSPHORUS BLOOD(Performed 03/31/2016) * MAGNESIUM BLOOD(Performed 03/31/2016) * COMPREHENSIVE METABOLIC PANEL(Performed 03/31/2016) * CBC W AUTO DIFFERENTIAL(Performed 03/31/2016) * PT-INR [facility](Performed 03/31/2016) * CULTURE BLOOD(Performed 03/31/2016) * CULTURE BLOOD(Performed 03/31/2016) * HISTOPLASMA GALACTOMANNAN AG URINE(Performed 03/31/2016) * LEGIONELLA ANTIGEN URINE(Performed 03/31/2016) * STREP PNEUMONIAE ANTIGEN URINE/CSF(Performed 03/31/2016) * CULTURE CYSTIC FIBROSIS PULMONARY(Performed 03/31/2016) * METHICILLIN RAPID TEST(Performed 03/31/2016) * XR CHEST 2VW(Performed 03/31/2016) * RESPIRATORY PATHOGEN PANEL BY PCR(Performed 03/31/2016) * COMPLETE PFT W/WO BRONCHODILATOR(Performed 03/20/2016) * BLOOD GASES ART - PFT(Performed 03/20/2016) * CULTURE SPUTUM+GRAM STAIN(Performed 03/16/2016) * METHICILLIN RAPID TEST(Performed 03/16/2016) * CBC W AUTO DIFFERENTIAL(Performed 03/08/2016) * CBC W AUTO DIFFERENTIAL(Performed 03/08/2016) * CBC W AUTO DIFFERENTIAL(Performed 02/16/2016) * CBC W AUTO DIFFERENTIAL(Performed 02/16/2016) * BASIC METABOLIC PANEL (CALCIUM TOTAL)(Performed 02/16/2016) * BASIC METABOLIC PANEL (CALCIUM TOTAL)(Performed 02/15/2016) * CBC W AUTO DIFFERENTIAL(Performed 02/15/2016) * CBC W AUTO DIFFERENTIAL(Performed 02/15/2016) * CULTURE BLOOD(Performed 02/14/2016) * BASIC METABOLIC PANEL (CALCIUM TOTAL)(Performed 02/14/2016) * CBC W AUTO DIFFERENTIAL(Performed 02/14/2016) * CBC W AUTO DIFFERENTIAL(Performed 02/14/2016) * GLUCOSE ACCUCHECK(Performed 02/13/2016) * CULTURE RESPIRATORY LOWER(Performed 02/13/2016) * BASIC METABOLIC PANEL (CALCIUM TOTAL)(Performed 02/13/2016) * CBC W AUTO DIFFERENTIAL(Performed 02/13/2016) * CBC W AUTO DIFFERENTIAL(Performed 02/13/2016) * BLOOD GASES ARTERIAL(Performed 02/12/2016) * THEOPHYLLINE LEVEL(Performed 02/12/2016) * BASIC METABOLIC PANEL (CALCIUM TOTAL)(Performed 02/12/2016) * CBC W AUTO DIFFERENTIAL(Performed 02/12/2016) * CBC W AUTO DIFFERENTIAL(Performed 02/12/2016) * HCG URINE QUALITATIVE(Performed 02/11/2016) * BASIC METABOLIC PANEL (CALCIUM TOTAL)(Performed 02/11/2016) * CBC W AUTO DIFFERENTIAL(Performed 02/11/2016) * CBC W AUTO DIFFERENTIAL(Performed 02/11/2016) * CULTURE SPUTUM+GRAM STAIN(Performed 02/11/2016) * METHICILLIN RAPID TEST(Performed 02/11/2016) * EKG 12-LEAD(Performed 02/11/2016) * XR CHEST 2VW(Performed 02/10/2016) * LAB HISTORICAL RESULTS-ONBASE(Performed 02/09/2016) * CT FACIAL BONES WO CONTRAST(Performed 11/17/2015) * URINALYSIS W/MICROSCOPIC NO CULTURE(Performed 11/10/2015) * CULTURE SPUTUM+GRAM STAIN(Performed 11/10/2015) * METHICILLIN RAPID TEST(Performed 11/10/2015) * CULTURE URINE(Performed 11/10/2015) * CULTURE SPUTUM+GRAM STAIN(Performed 10/05/2015) * CBC W AUTO DIFFERENTIAL(Performed 09/29/2015) * CBC W AUTO DIFFERENTIAL(Performed 09/29/2015) * COMPREHENSIVE METABOLIC PANEL(Performed 09/29/2015) * CULTURE SPUTUM+GRAM STAIN(Performed 08/18/2015) * IGG BLOOD(Performed 08/16/2015) * CULTURE SPUTUM+GRAM STAIN(Performed 08/10/2015) * COMPLETE PFT W/WO BRONCHODILATOR(Performed 02/09/2015) * XR CHEST 1VW PORTABLE(Performed 01/31/2015) * EKG 12-LEAD(Performed 01/29/2015) * IGG BLOOD(Performed 01/28/2015) * CBC W AUTO DIFFERENTIAL(Performed 01/28/2015) * CBC W AUTO DIFFERENTIAL(Performed 01/28/2015) * PHOSPHORUS BLOOD(Performed 01/28/2015) * MAGNESIUM BLOOD(Performed 01/28/2015) * BASIC METABOLIC PANEL (CALCIUM TOTAL)(Performed 01/28/2015) * DIFFERENTIAL MANUAL(Performed 01/27/2015) * CBC W AUTO DIFFERENTIAL(Performed 01/27/2015) * PHOSPHORUS BLOOD(Performed 01/27/2015) * MAGNESIUM BLOOD(Performed 01/27/2015) * BASIC METABOLIC PANEL (CALCIUM TOTAL)(Performed 01/27/2015) * CBC W AUTO DIFFERENTIAL(Performed 01/27/2015) * CULTURE SPUTUM+GRAM STAIN(Performed 01/26/2015) * XR CHEST 2VW(Performed 01/26/2015) * COMPREHENSIVE METABOLIC PANEL(Performed 01/25/2015) * CBC W AUTO DIFFERENTIAL(Performed 01/25/2015) * CBC W AUTO DIFFERENTIAL(Performed 01/25/2015) * CULTURE BLOOD(Performed 01/25/2015) * CULTURE BLOOD(Performed 01/25/2015) * PATHOLOGY TISSUE(Performed 12/21/2014) * CULTURE ANAEROBE(Performed 12/21/2014) * CULTURE AEROBIC(Performed 12/21/2014) * HCG URINE QUALITATIVE - POCT (IP) [facility](Performed 12/21/2014) * MAGNESIUM BLOOD(Performed 11/20/2014) * PHOSPHORUS BLOOD(Performed 11/20/2014) * BASIC METABOLIC PANEL (CALCIUM TOTAL)(Performed 11/20/2014) * CBC W AUTO DIFFERENTIAL(Performed 11/20/2014) * CBC W AUTO DIFFERENTIAL(Performed 11/20/2014) * CULTURE STREP GROUP A(Performed 11/19/2014) * STREP A SCREEN DIRECT(Performed 11/19/2014) * CT CHEST WO CONTRAST(Performed 11/19/2014) * BASIC METABOLIC PANEL (CALCIUM TOTAL)(Performed 11/19/2014) * PHOSPHORUS BLOOD(Performed 11/19/2014) * MAGNESIUM BLOOD(Performed 11/19/2014) * CBC W AUTO DIFFERENTIAL(Performed 11/19/2014) * CBC W AUTO DIFFERENTIAL(Performed 11/19/2014) * STREP PNEUMONIAE ANTIGEN BLOOD/CSF(Performed 11/19/2014) * LEGIONELLA ANTIGEN URINE(Performed 11/19/2014) * CULTURE SPUTUM+GRAM STAIN(Performed 11/18/2014) * CULTURE BLOOD(Performed 11/18/2014) * CULTURE BLOOD(Performed 11/18/2014) * PHOSPHORUS BLOOD(Performed 11/18/2014) * MAGNESIUM BLOOD(Performed 11/18/2014) * BASIC METABOLIC PANEL (CALCIUM TOTAL)(Performed 11/18/2014) * CBC W AUTO DIFFERENTIAL(Performed 11/18/2014) * CBC W AUTO DIFFERENTIAL(Performed 11/18/2014) * EKG 12-LEAD(Performed 11/18/2014) * INFLUENZA A+B PCR(Performed 11/17/2014) * INFLUENZA B ANTIGEN RAPID(Performed 11/17/2014) * INFLUENZA A ANTIGEN RAPID(Performed 11/17/2014) * CBC W AUTO DIFFERENTIAL(Performed 11/17/2014) * CBC W AUTO DIFFERENTIAL(Performed 11/17/2014) * BASIC METABOLIC PANEL (CALCIUM TOTAL)(Performed 11/17/2014) * PHOSPHORUS BLOOD(Performed 11/17/2014) * MAGNESIUM BLOOD(Performed 11/17/2014) * XR CHEST 2VW(Performed 11/17/2014) * PATHOLOGY TISSUE(Performed 09/11/2014) * CYTOLOGY NON-[employer] PANEL (STL)(Performed 09/11/2014) * CYTOLOGY NON-[employer] INTERNS[employer]IP PANEL (STL)(Performed 09/11/2014) * FLOW CYTOMETRY PANEL(Performed 09/11/2014) * CULTURE FUNGUS OTHER+FUNGUS SMEAR(Performed 09/11/2014) * VIRAL CULTURE MISC(Performed 09/11/2014) * CULTURE CHLAMYDIA PSITTACI(Performed 09/11/2014) * CULTURE AEROBIC(Performed 09/11/2014) * CULTURE AFB+SMEAR(Performed 09/11/2014) * CELL COUNT W DIFFERENTIAL FLUID(Performed 09/11/2014) * DIFFERENTIAL MANUAL FLUID(Performed 09/11/2014) * CELL COUNT FLUID(Performed 09/11/2014) * CULTURE FUNGUS OTHER+FUNGUS SMEAR(Performed 09/11/2014) * CULTURE BRONCHOALVEOLAR LAVAGE QNT+GRAM STAIN(Performed 09/11/2014) * GRAM STAIN SMEAR(Performed 09/11/2014) * CULTURE AFB+SMEAR(Performed 09/11/2014) * XR CHEST 1VW(Performed 09/11/2014) * HCG URINE QUALITATIVE - POCT (IP) [facility](Performed 09/11/2014) * CBC W AUTO DIFFERENTIAL(Performed 09/07/2014) * DIFFERENTIAL MANUAL(Performed 09/07/2014) * BASIC METABOLIC PANEL (CALCIUM TOTAL)(Performed 09/07/2014) * CBC W AUTO DIFFERENTIAL(Performed 09/07/2014) * THEOPHYLLINE LEVEL(Performed 09/06/2014) * BASIC METABOLIC PANEL (CALCIUM TOTAL)(Performed 09/06/2014) * CBC W AUTO DIFFERENTIAL(Performed 09/06/2014) * DIFFERENTIAL MANUAL(Performed 09/06/2014) * CBC W AUTO DIFFERENTIAL(Performed 09/06/2014) * BASIC METABOLIC PANEL (CALCIUM TOTAL)(Performed 09/05/2014) * CBC W AUTO DIFFERENTIAL(Performed 09/05/2014) * DIFFERENTIAL MANUAL(Performed 09/05/2014) * CBC W AUTO DIFFERENTIAL(Performed 09/05/2014) * NEUTROPHIL CYTOPLASMIC ANTIBODY(Performed 09/04/2014) * MPO/MN 3 AUTOANTIBODIES PANEL(Performed 09/04/2014) * BASIC METABOLIC PANEL (CALCIUM TOTAL)(Performed 09/04/2014) * CBC W AUTO DIFFERENTIAL(Performed 09/04/2014) * CBC W AUTO DIFFERENTIAL(Performed 09/04/2014) * CULTURE AFB+SMEAR(Performed 09/03/2014) * ALLERGEN PROF ZONE 8 (IN [place])(Performed 09/03/2014) * CULTURE FUNGUS OTHER+FUNGUS SMEAR(Performed 09/03/2014) * CULTURE SPUTUM+GRAM STAIN(Performed 09/03/2014) * CULTURE AFB+SMEAR(Performed 09/03/2014) * EOSINOPHIL SPUTUM SMEAR(Performed 09/03/2014) * CT CHEST WO CONT AND HIRES(Performed 09/03/2014) * BASIC METABOLIC PANEL (CALCIUM TOTAL)(Performed 09/03/2014) * CBC W AUTO DIFFERENTIAL(Performed 09/03/2014) * CBC W AUTO DIFFERENTIAL(Performed 09/03/2014) * CULTURE SPUTUM+GRAM STAIN(Performed 09/03/2014) * DIFFERENTIAL MANUAL(Performed 09/02/2014) * CBC W AUTO DIFFERENTIAL(Performed 09/02/2014) * CBC W AUTO DIFFERENTIAL(Performed 09/02/2014) * COMPREHENSIVE METABOLIC PANEL(Performed 09/02/2014) * PHOSPHORUS BLOOD(Performed 09/02/2014) * MAGNESIUM BLOOD(Performed 09/02/2014) * XR CHEST 1VW PORTABLE(Performed 09/02/2014) * EKG 12-LEAD(Performed 09/02/2014) * IGE BLOOD(Performed 08/22/2014) * CULTURE STREP GROUP A(Performed 08/04/2014) * IMMUNOGLOBULINS IGG/IGM/IGA PANEL(Performed 08/03/2014) * LAB HISTORICAL RESULTS-ONBASE(Performed 08/03/2014) * THEOPHYLLINE LEVEL(Performed 07/17/2014) * DIFFERENTIAL MANUAL(Performed 07/17/2014) * CBC W AUTO DIFFERENTIAL(Performed 07/17/2014) * COMPREHENSIVE METABOLIC PANEL(Performed 07/17/2014) * CBC W AUTO DIFFERENTIAL(Performed 07/17/2014) * HEPATIC FUNCTION PANEL(Performed 07/16/2014) * BASIC METABOLIC PANEL (CALCIUM TOTAL)(Performed 07/16/2014) * PHOSPHORUS BLOOD(Performed 07/16/2014) * MAGNESIUM BLOOD(Performed 07/16/2014) * PT-INR [facility](Performed 07/16/2014) * CBC W AUTO DIFFERENTIAL(Performed 07/16/2014) * CBC W AUTO DIFFERENTIAL(Performed 07/16/2014) * THEOPHYLLINE LEVEL(Performed 07/16/2014) * COMPREHENSIVE METABOLIC PANEL(Performed 07/16/2014) * CBC W AUTO DIFFERENTIAL(Performed 07/16/2014) * DIFFERENTIAL MANUAL(Performed 07/16/2014) * PHOSPHORUS BLOOD(Performed 07/16/2014) * MAGNESIUM BLOOD(Performed 07/16/2014) * PT-INR [facility](Performed 07/16/2014) * CBC W AUTO DIFFERENTIAL(Performed 07/16/2014) * DIFFERENTIAL MANUAL(Performed 07/15/2014) * CBC W AUTO DIFFERENTIAL(Performed 07/15/2014) * HEPATIC FUNCTION PANEL(Performed 07/15/2014) * BASIC METABOLIC PANEL (CALCIUM TOTAL)(Performed 07/15/2014) * PHOSPHORUS BLOOD(Performed 07/15/2014) * MAGNESIUM BLOOD(Performed 07/15/2014) * COMPREHENSIVE METABOLIC PANEL(Performed 07/15/2014) * PT-INR [facility](Performed 07/15/2014) * CBC W AUTO DIFFERENTIAL(Performed 07/15/2014) * HCG BETA BLOOD QUANTITATIVE(Performed 07/14/2014) * VAS BILATERAL VENOUS DUPLEX LE(Performed 07/14/2014) * HEPATIC FUNCTION PANEL(Performed 07/13/2014) * BASIC METABOLIC PANEL (CALCIUM TOTAL)(Performed 07/13/2014) * PHOSPHORUS BLOOD(Performed 07/13/2014) * MAGNESIUM BLOOD(Performed 07/13/2014) * PT-INR [facility](Performed 07/13/2014) * CBC W AUTO DIFFERENTIAL(Performed 07/13/2014) * CBC W AUTO DIFFERENTIAL(Performed 07/13/2014) * LAB MISC TEST(Performed 07/13/2014) * GLUCOSE ACCUCHECK(Performed 07/13/2014) * HIV-1 HIV-2 ANTIGEN/ANTIBODY(Performed 07/13/2014) * ENTEROVIRUS PCR(Performed 07/13/2014) * NM LUNG VENT AND PERFUSION(Performed 07/13/2014) * VIRAL CULTURE MISC(Performed 07/13/2014) * FUNGUS SMEAR(Performed 07/13/2014) * CULTURE FUNGUS OTHER(Performed 07/13/2014) * CULTURE FUNGUS OTHER+FUNGUS SMEAR(Performed 07/13/2014) * DIFFERENTIAL MANUAL(Performed 07/13/2014) * CBC W AUTO DIFFERENTIAL(Performed 07/13/2014) * CBC W AUTO DIFFERENTIAL(Performed 07/13/2014) * BASIC METABOLIC PANEL (CALCIUM TOTAL)(Performed 07/13/2014) * HEPATIC FUNCTION PANEL(Performed 07/13/2014) * PHOSPHORUS BLOOD(Performed 07/13/2014) * MAGNESIUM BLOOD(Performed 07/13/2014) * CK BLOOD(Performed 07/13/2014) * PT-INR [facility](Performed 07/13/2014) * ECHO COMPLETE(Performed 07/13/2014) * CT CHEST WO CONT AND HIRES(Performed 2014) * GLUCOSE ACCUCHECK(Performed 2014) * CBC W AUTO DIFFERENTIAL(Performed 2014) * CBC W AUTO DIFFERENTIAL(Performed 2014) * HEPATIC FUNCTION PANEL(Performed 2014) * BASIC METABOLIC PANEL (CALCIUM TOTAL)(Performed 2014) * PHOSPHORUS BLOOD(Performed 2014) * MAGNESIUM BLOOD(Performed 2014) * CK BLOOD(Performed 2014) * PT-INR [facility](Performed 2014) * CULTURE FUNGUS OTHER(Performed 07/11/2014) * CULTURE FUNGUS OTHER+FUNGUS SMEAR(Performed 07/11/2014) * FUNGUS SMEAR(Performed 07/11/2014) * GLUCOSE ACCUCHECK(Performed 07/11/2014) * XR CHEST 1VW PORTABLE(Performed 07/11/2014) * PHOSPHORUS BLOOD(Performed 07/11/2014) * MAGNESIUM BLOOD(Performed 07/11/2014) * CK BLOOD(Performed 07/11/2014) * BASIC METABOLIC PANEL (CALCIUM TOTAL)(Performed 07/11/2014) * HEPATIC FUNCTION PANEL(Performed 07/11/2014) * LACTIC ACID BLOOD(Performed 07/11/2014) * CBC W AUTO DIFFERENTIAL(Performed 07/11/2014) * CBC W AUTO DIFFERENTIAL(Performed 07/11/2014) * PT-INR [facility](Performed 07/11/2014) * PTT [facility](Performed 07/11/2014) * CULTURE BLOOD(Performed 07/10/2014) * BLOOD GASES ARTERIAL(Performed 07/10/2014) * GLUCOSE ACCUCHECK(Performed 07/10/2014) * STREP PNEUMONIAE ANTIGEN BLOOD/CSF(Performed 07/10/2014) * CULTURE RESPIRATORY LOWER(Performed 07/10/2014) * CULTURE SPUTUM+GRAM STAIN(Performed 07/10/2014) * GRAM STAIN SMEAR(Performed 07/10/2014) * LEGIONELLA ANTIGEN URINE(Performed 07/10/2014) * CULTURE URINE(Performed 07/10/2014) * URINALYSIS REFLEX TO MICROSCOPIC NO CULTURE(Performed 07/10/2014) * MYCOPLASMA PNEUMONIAE AB IGM(Performed 07/10/2014) * THEOPHYLLINE LEVEL(Performed 07/10/2014) * CK BLOOD(Performed 07/10/2014) * HEPATIC FUNCTION PANEL(Performed 07/10/2014) * BASIC METABOLIC PANEL (CALCIUM TOTAL)(Performed 07/10/2014) * PHOSPHORUS BLOOD(Performed 07/10/2014) * MAGNESIUM BLOOD(Performed 07/10/2014) * LACTIC ACID BLOOD(Performed 07/10/2014) * LDH BLOOD(Performed 07/10/2014) * CBC W AUTO DIFFERENTIAL(Performed 07/10/2014) * CBC W AUTO DIFFERENTIAL(Performed 07/10/2014) * PTT [facility](Performed 07/10/2014) * PT-INR [facility](Performed 07/10/2014) * CULTURE RESPIRATORY LOWER(Performed 07/10/2014) * CULTURE SPUTUM+GRAM STAIN(Performed 07/10/2014) * GRAM STAIN SMEAR(Performed 07/10/2014) * BASIC METABOLIC PANEL (CALCIUM TOTAL)(Performed 07/10/2014) * MAGNESIUM BLOOD(Performed 07/10/2014) * CBC W AUTO DIFFERENTIAL(Performed 07/10/2014) * CBC W AUTO DIFFERENTIAL(Performed 07/10/2014) * EKG 12-LEAD(Performed 07/10/2014) * URINALYSIS W/MICROSCOPIC NO CULTURE(Performed 07/09/2014) * XR CHEST 1VW PORTABLE(Performed 07/09/2014) * TROPONIN I(Performed 07/09/2014) * CBC W AUTO DIFFERENTIAL(Performed 07/09/2014) * CBC W AUTO DIFFERENTIAL(Performed 07/09/2014) * COMPREHENSIVE METABOLIC PANEL(Performed 07/09/2014) * LACTIC ACID BLOOD(Performed 07/09/2014) * PHOSPHORUS BLOOD(Performed 07/09/2014) * MAGNESIUM BLOOD(Performed 07/09/2014) * CULTURE BLOOD(Performed 07/09/2014) * CULTURE BLOOD(Performed 07/09/2014) * EKG 12-LEAD(Performed 07/09/2014) * D-DIMER(Performed 06/10/2014) * PULSE OX EXERCISE - POCT (AMB) [facility](Performed 06/05/2014) * VAS BILATERAL VENOUS DUPLEX LE(Performed 05/21/2014) * XR CHEST 2VW(Performed 05/21/2014) * CULTURE RESPIRATORY LOWER(Performed 05/21/2014) * GRAM STAIN SMEAR(Performed 05/21/2014) * PHOSPHORUS BLOOD(Performed 04/13/2014) * MAGNESIUM BLOOD(Performed 04/13/2014) * BASIC METABOLIC PANEL (CALCIUM TOTAL)(Performed 04/13/2014) * CBC W AUTO DIFFERENTIAL(Performed 04/13/2014) * CBC W AUTO DIFFERENTIAL(Performed 04/13/2014) * FUNGUS SMEAR(Performed 04/12/2014) * CULTURE FUNGUS OTHER(Performed 04/12/2014) * CULTURE FUNGUS OTHER+FUNGUS SMEAR(Performed 04/12/2014) * CULTURE SPUTUM+GRAM STAIN(Performed 04/12/2014) * CULTURE RESPIRATORY LOWER(Performed 04/12/2014) * AFB SMEAR(Performed 04/12/2014) * GRAM STAIN SMEAR(Performed 04/12/2014) * CULTURE AFB+SMEAR(Performed 04/12/2014) * CULTURE AFB(Performed 04/12/2014) * CBC W AUTO DIFFERENTIAL(Performed 04/12/2014) * DIFFERENTIAL MANUAL(Performed 04/12/2014) * BASIC METABOLIC PANEL (CALCIUM TOTAL)(Performed 04/12/2014) * VANCOMYCIN LEVEL TROUGH(Performed 04/12/2014) * PHOSPHORUS BLOOD(Performed 04/12/2014) * MAGNESIUM BLOOD(Performed 04/12/2014) * CBC W AUTO DIFFERENTIAL(Performed 04/12/2014) * IGG BLOOD(Performed 04/11/2014) * DIFFERENTIAL MANUAL(Performed 04/11/2014) * CBC W AUTO DIFFERENTIAL(Performed 04/11/2014) * CBC W AUTO DIFFERENTIAL(Performed 04/11/2014) * PHOSPHORUS BLOOD(Performed 04/11/2014) * MAGNESIUM BLOOD(Performed 04/11/2014) * BASIC METABOLIC PANEL (CALCIUM TOTAL)(Performed 04/11/2014) * BASIC METABOLIC PANEL (CALCIUM TOTAL)(Performed 04/10/2014) * PHOSPHORUS BLOOD(Performed 04/10/2014) * MAGNESIUM BLOOD(Performed 04/10/2014) * CBC W AUTO DIFFERENTIAL(Performed 04/10/2014) * CBC W AUTO DIFFERENTIAL(Performed 04/10/2014) * VANCOMYCIN LEVEL TROUGH(Performed 04/09/2014) * BASIC METABOLIC PANEL (CALCIUM TOTAL)(Performed 04/09/2014) * PHOSPHORUS BLOOD(Performed 04/09/2014) * MAGNESIUM BLOOD(Performed 04/09/2014) * CBC W AUTO DIFFERENTIAL(Performed 04/09/2014) * CBC W AUTO DIFFERENTIAL(Performed 04/09/2014) * PFT-LAB(Performed 04/08/2014) * BASIC METABOLIC PANEL (CALCIUM TOTAL)(Performed 04/08/2014) * PHOSPHORUS BLOOD(Performed 04/08/2014) * MAGNESIUM BLOOD(Performed 04/08/2014) * CBC W AUTO DIFFERENTIAL(Performed 04/08/2014) * CBC W AUTO DIFFERENTIAL(Performed 04/08/2014) * XR CHEST 2VW(Performed 04/07/2014) * DIFFERENTIAL MANUAL(Performed 04/07/2014) * CBC W AUTO DIFFERENTIAL(Performed 04/07/2014) * PHOSPHORUS BLOOD(Performed 04/07/2014) * MAGNESIUM BLOOD(Performed 04/07/2014) * BASIC METABOLIC PANEL (CALCIUM TOTAL)(Performed 04/07/2014) * CBC W AUTO DIFFERENTIAL(Performed 04/07/2014) * CULTURE RESPIRATORY LOWER(Performed 04/06/2014) * CULTURE SPUTUM+GRAM STAIN(Performed 04/06/2014) * GRAM STAIN SMEAR(Performed 04/06/2014) * DIFFERENTIAL MANUAL(Performed 02/24/2014) * CBC W AUTO DIFFERENTIAL(Performed 02/24/2014) * CBC W AUTO DIFFERENTIAL(Performed 02/24/2014) * COMPREHENSIVE METABOLIC PANEL(Performed 02/24/2014) * PHOSPHORUS BLOOD(Performed 02/24/2014) * MAGNESIUM BLOOD(Performed 02/24/2014) * PT-INR [facility](Performed 02/24/2014) * COMPREHENSIVE METABOLIC PANEL(Performed 02/23/2014) * MAGNESIUM BLOOD(Performed 02/23/2014) * PHOSPHORUS BLOOD(Performed 02/23/2014) * PT-INR [facility](Performed 02/23/2014) * CBC W AUTO DIFFERENTIAL(Performed 02/23/2014) * DIFFERENTIAL MANUAL(Performed 02/23/2014) * CBC W AUTO DIFFERENTIAL(Performed 02/23/2014) * CT SINUS WO CONTRAST(Performed 02/22/2014) * XR SINUSES 3VW OR MORE(Performed 02/21/2014) * CULTURE MRSA(Performed 02/21/2014) * BLOOD GASES ARTERIAL(Performed 02/21/2014) * COMPREHENSIVE METABOLIC PANEL(Performed 02/21/2014) * PHOSPHORUS BLOOD(Performed 02/21/2014) * MAGNESIUM BLOOD(Performed 02/21/2014) * PT-INR [facility](Performed 02/21/2014) * CULTURE AFB+SMEAR(Performed 02/21/2014) * CULTURE AFB(Performed 02/21/2014) * CULTURE FUNGUS OTHER+FUNGUS SMEAR(Performed 02/21/2014) * CULTURE FUNGUS OTHER(Performed 02/21/2014) * CULTURE RESPIRATORY LOWER(Performed 02/21/2014) * CULTURE SPUTUM+GRAM STAIN(Performed 02/21/2014) * AFB SMEAR(Performed 02/21/2014) * FUNGUS SMEAR(Performed 02/21/2014) * GRAM STAIN SMEAR(Performed 02/21/2014) * ECHO COMPLETE(Performed 02/21/2014) * CULTURE BLOOD(Performed 02/20/2014) * CULTURE BLOOD(Performed 02/20/2014) * XR CHEST 1VW PORTABLE(Performed 02/20/2014) * HEPATIC FUNCTION PANEL(Performed 02/20/2014) * PHOSPHORUS BLOOD(Performed 02/20/2014) * MAGNESIUM BLOOD(Performed 02/20/2014) * BLOOD GASES [place](Performed 02/20/2014) * CK + CKMB PANEL(Performed 02/20/2014) * LACTIC ACID BLOOD(Performed 02/20/2014) * BASIC METABOLIC PANEL (CALCIUM TOTAL)(Performed 02/20/2014) * TROPONIN I(Performed 02/20/2014) * CBC W/O DIFFERENTIAL(Performed 02/20/2014) * ANTIPHOSPHOLIPID ANTIBODY PANEL(Performed 01/19/2014) * C-REACTIVE PROTEIN(Performed 12/16/2013) * RHEUMATOID FACTOR BLOOD QUANTITATIVE(Performed 12/16/2013) * [place] SCREEN IFA+LUPUS PANEL(Performed 12/16/2013) * IGG BLOOD(Performed 12/16/2013) * COMPLETE PFT W/WO BRONCHODILATOR(Performed 12/08/2013) * XR CHEST 2VW(Performed 11/14/2013) * US ABDOMEN LIMITED(Performed 11/05/2013) * DERMATOPATHOLOGY(Performed 10/27/2013) * COMPREHENSIVE METABOLIC PANEL(Performed 10/20/2013) * CBC W AUTO DIFFERENTIAL(Performed 10/20/2013) * [place] ANTIBODY A PANEL(Performed 10/20/2013) * PARVOVIRUS B19 IGG/IGM AB PANEL(Performed 10/20/2013) * CBC W AUTO DIFFERENTIAL(Performed 10/09/2013) * URINALYSIS W/MICROSCOPIC NO CULTURE(Performed 10/02/2013) * COMPREHENSIVE METABOLIC PANEL(Performed 10/02/2013) * PHOSPHORUS BLOOD(Performed 10/02/2013) * MAGNESIUM BLOOD(Performed 10/02/2013) * CBC W AUTO DIFFERENTIAL(Performed 10/02/2013) * CBC W AUTO DIFFERENTIAL(Performed 10/01/2013) * COMPREHENSIVE METABOLIC PANEL(Performed 10/01/2013) * PHOSPHORUS BLOOD(Performed 10/01/2013) * MAGNESIUM BLOOD(Performed 10/01/2013) * CULTURE AFB(Performed 09/30/2013) * CULTURE FUNGUS OTHER+FUNGUS SMEAR(Performed 09/30/2013) * CULTURE ANAEROBE(Performed 09/30/2013) * CULTURE TISSUE+GRAM STAIN(Performed 09/30/2013) * FUNGUS SMEAR(Performed 09/30/2013) * AFB SMEAR(Performed 09/30/2013) * PATHOLOGY TISSUE(Performed 09/30/2013) * VIRAL CULTURE STOOL(Performed 09/30/2013) * CBC W AUTO DIFFERENTIAL(Performed 09/30/2013) * COMPREHENSIVE METABOLIC PANEL(Performed 09/30/2013) * PHOSPHORUS BLOOD(Performed 09/30/2013) * MAGNESIUM BLOOD(Performed 09/30/2013) * CBC W AUTO DIFFERENTIAL(Performed 09/29/2013) * COMPREHENSIVE METABOLIC PANEL(Performed 09/29/2013) * PHOSPHORUS BLOOD(Performed 09/29/2013) * MAGNESIUM BLOOD(Performed 09/29/2013) * COMPREHENSIVE METABOLIC PANEL(Performed 09/28/2013) * PHOSPHORUS BLOOD(Performed 09/28/2013) * MAGNESIUM BLOOD(Performed 09/28/2013) * CBC W AUTO DIFFERENTIAL(Performed 09/28/2013) * BASIC METABOLIC PANEL (CALCIUM TOTAL)(Performed 09/27/2013) * PHOSPHORUS BLOOD(Performed 09/27/2013) * MAGNESIUM BLOOD(Performed 09/27/2013) * CBC W AUTO DIFFERENTIAL(Performed 09/27/2013) * HEPATIC FUNCTION PANEL(Performed 09/27/2013) * URINALYSIS W/MICROSCOPIC NO CULTURE(Performed 09/27/2013) * CULTURE SPUTUM+GRAM STAIN(Performed 09/27/2013) * CULTURE BLOOD(Performed 09/27/2013) * CULTURE BLOOD(Performed 09/27/2013) * EKG 12-LEAD(Performed 09/27/2013) * CBC W AUTO DIFFERENTIAL(Performed 09/26/2013) * BASIC METABOLIC PANEL (CALCIUM TOTAL)(Performed 09/26/2013) * STREP A SCREEN DIRECT(Performed 09/26/2013) * CULTURE STREP GROUP A(Performed 09/26/2013) * XR CHEST 2VW PNEUMONIA PROTCL(Performed 09/26/2013) * BASIC METABOLIC PANEL (CALCIUM TOTAL)(Performed 09/20/2013) * MAGNESIUM BLOOD(Performed 09/20/2013) * PHOSPHORUS BLOOD(Performed 09/20/2013) * CBC W AUTO DIFFERENTIAL(Performed 09/20/2013) * VANCOMYCIN LEVEL TROUGH(Performed 09/19/2013) * CULTURE FUNGUS OTHER+FUNGUS SMEAR(Performed 09/19/2013) * CULTURE SPUTUM+GRAM STAIN(Performed 09/19/2013) * FUNGUS SMEAR(Performed 09/19/2013) * BASIC METABOLIC PANEL (CALCIUM TOTAL)(Performed 09/19/2013) * MAGNESIUM BLOOD(Performed 09/19/2013) * PHOSPHORUS BLOOD(Performed 09/19/2013) * CBC W AUTO DIFFERENTIAL(Performed 09/19/2013) * URINALYSIS REFLEX TO MICROSCOPIC NO CULTURE(Performed 09/18/2013) * XR CHEST 2VW(Performed 09/18/2013) * COMPREHENSIVE METABOLIC PANEL(Performed 09/18/2013) * LACTIC ACID BLOOD(Performed 09/18/2013) * CBC W AUTO DIFFERENTIAL(Performed 09/18/2013) * CULTURE BLOOD(Performed 09/18/2013) * CULTURE URINE(Performed 09/18/2013) * EOSINOPHIL URINE SMEAR(Performed 09/18/2013) * LAB HISTORICAL RESULTS-ONBASE(Performed 09/12/2013) * LAB HISTORICAL RESULTS-ONBASE(Performed 09/12/2013) * GLUCOSE ACCUCHECK(Performed 09/11/2013) * GLUCOSE ACCUCHECK(Performed 09/11/2013) * CBC W AUTO DIFFERENTIAL(Performed 09/11/2013) * BASIC METABOLIC PANEL (CALCIUM TOTAL)(Performed 09/11/2013) * GLUCOSE ACCUCHECK(Performed 09/10/2013) * GLUCOSE ACCUCHECK(Performed 09/10/2013) * GLUCOSE ACCUCHECK(Performed 09/10/2013) * GLUCOSE ACCUCHECK(Performed 09/10/2013) * CBC W AUTO DIFFERENTIAL(Performed 09/10/2013) * THEOPHYLLINE LEVEL(Performed 09/10/2013) * HEPATIC FUNCTION PANEL(Performed 09/10/2013) * BASIC METABOLIC PANEL (CALCIUM TOTAL)(Performed 09/10/2013) * GLUCOSE ACCUCHECK(Performed 09/09/2013) * GLUCOSE ACCUCHECK(Performed 09/09/2013) * IR US GUIDE VASCULAR ACCESS(Performed 09/09/2013) * IR PICC LINE INSERT(Performed 09/09/2013) * IR KOSTAS CATH INSERT(Performed 09/09/2013) * THEOPHYLLINE LEVEL(Performed 09/09/2013) * CBC W AUTO DIFFERENTIAL(Performed 09/09/2013) * HEPATIC FUNCTION PANEL(Performed 09/09/2013) * BASIC METABOLIC PANEL (CALCIUM TOTAL)(Performed 09/09/2013) * VANCOMYCIN LEVEL TROUGH(Performed 09/09/2013) * VANCOMYCIN LEVEL TROUGH(Performed 09/08/2013) * GLUCOSE ACCUCHECK(Performed 09/08/2013) * GLUCOSE ACCUCHECK(Performed 09/08/2013) * CULTURE SPUTUM+GRAM STAIN(Performed 09/08/2013) * PT-INR SLH(Performed 09/08/2013) * GLUCOSE ACCUCHECK(Performed 09/08/2013) * THEOPHYLLINE LEVEL(Performed 09/08/2013) * CBC W AUTO DIFFERENTIAL(Performed 09/08/2013) * HEPATIC FUNCTION PANEL(Performed 09/08/2013) * BASIC METABOLIC PANEL (CALCIUM TOTAL)(Performed 09/08/2013) * GLUCOSE ACCUCHECK(Performed 09/08/2013) * LAB HISTORICAL RESULTS-ONBASE(Performed 09/08/2013) * GLUCOSE ACCUCHECK(Performed 09/07/2013) * VANCOMYCIN LEVEL RANDOM(Performed 09/07/2013) * GLUCOSE ACCUCHECK(Performed 09/07/2013) * GLUCOSE ACCUCHECK(Performed 09/07/2013) * THEOPHYLLINE LEVEL(Performed 09/07/2013) * BASIC METABOLIC PANEL (CALCIUM TOTAL)(Performed 09/07/2013) * HEPATIC FUNCTION PANEL(Performed 09/07/2013) * CBC W AUTO DIFFERENTIAL(Performed 09/07/2013) * VANCOMYCIN LEVEL RANDOM(Performed 09/07/2013) * GLUCOSE ACCUCHECK(Performed 09/07/2013) * GLUCOSE ACCUCHECK(Performed 09/06/2013) * GLUCOSE ACCUCHECK(Performed 09/06/2013) * GLUCOSE ACCUCHECK(Performed 09/06/2013) * THEOPHYLLINE LEVEL(Performed 09/06/2013) * GLUCOSE ACCUCHECK(Performed 09/06/2013) * CT CHEST WO CONT AND HIRES(Performed 09/06/2013) * T4 FREE(Performed 09/06/2013) * TSH(Performed 09/06/2013) * HEPATIC FUNCTION PANEL(Performed 09/06/2013) * BASIC METABOLIC PANEL (CALCIUM TOTAL)(Performed 09/06/2013) * CBC W AUTO DIFFERENTIAL(Performed 09/06/2013) * GLUCOSE ACCUCHECK(Performed 09/06/2013) * ASPERGILLUS ANTIBODY BY ID(Performed 09/05/2013) * IGE BLOOD(Performed 09/05/2013) * CULTURE AFB(Performed 09/05/2013) * AFB SMEAR(Performed 09/05/2013) * CULTURE SPUTUM+GRAM STAIN(Performed 09/05/2013) * BASIC METABOLIC PANEL (CALCIUM TOTAL)(Performed 09/05/2013) * CBC W AUTO DIFFERENTIAL(Performed 09/05/2013) * CULTURE BLOOD(Performed 09/05/2013) * CULTURE BLOOD(Performed 09/05/2013) * URINALYSIS REFLEX TO MICROSCOPIC NO CULTURE(Performed 09/05/2013) * CULTURE URINE(Performed 09/05/2013) * COMPLETE PFT W/WO BRONCHODILATOR(Performed 08/13/2013) * CULTURE RESPIRATORY LOWER(Performed 07/14/2013) * CULTURE RESPIRATORY LOWER(Performed 05/19/2013) * CBC W AUTO DIFFERENTIAL(Performed 01/15/2013) * IGE BLOOD(Performed 01/15/2013) * COMPLETE PFT W/WO BRONCHODILATOR(Performed 12/10/2012) * PATHOLOGY REPORTS - HPF HISTORICAL(Performed 09/11/2012) * CELL COUNT W DIFFERENTIAL FLUID(Performed 08/22/2012) * CULTURE AFB(Performed 08/22/2012) * CULTURE AFB(Performed 08/22/2012) * CULTURE FUNGUS OTHER+FUNGUS SMEAR(Performed 08/22/2012) * CULTURE FUNGUS OTHER+FUNGUS SMEAR(Performed 08/22/2012) * CULTURE LEGIONELLA(Performed 08/22/2012) * AFB SMEAR(Performed 08/22/2012) * AFB SMEAR(Performed 08/22/2012) * FUNGUS SMEAR(Performed 08/22/2012) * FUNGUS SMEAR(Performed 08/22/2012) * GRAM STAIN SMEAR(Performed 08/22/2012) * CULTURE BRONCHOALVEOLAR LAVAGE QNT+GRAM STAIN(Performed 08/22/2012) * VIRAL CULTURE RESPIRATORY(Performed 08/22/2012) * XR CHEST 1VW PORTABLE(Performed 08/22/2012) * XR CHEST 1VW PORTABLE(Performed 08/22/2012) * BASIC METABOLIC PANEL (CALCIUM TOTAL)(Performed 07/22/2012) * THEOPHYLLINE LEVEL(Performed 07/22/2012) * ALDOLASE(Performed 07/02/2012) * SS-B (SJOGREN'S) ANTIBODY(Performed 07/02/2012) * SS-A (SJOGREN'S) ANTIBODY(Performed 07/02/2012) * COMPREHENSIVE METABOLIC PANEL(Performed 07/02/2012) * CK BLOOD(Performed 07/02/2012) * CBC W AUTO DIFFERENTIAL(Performed 07/02/2012) * CYCLIC CITRULLINATED PEPTIDE(CCP) AB IGG(Performed 07/02/2012) * URINALYSIS W/MICROSCOPIC NO CULTURE(Performed 07/02/2012) * PATHOLOGY/GENETICS HISTORICAL-ONBASE(Performed 06/07/2012) * CULTURE RESPIRATORY LOWER(Performed 06/03/2012) * CT CHEST WO CONT AND HIRES(Performed 04/22/2012) * [place] TITER AND PATTERN RFLXD(Performed 04/22/2012) * [place] BLOOD SCREEN(Performed 04/22/2012) * THEOPHYLLINE LEVEL(Performed 04/22/2012) * AFB SMEAR(Performed 04/22/2012) * CULTURE FUNGUS OTHER+FUNGUS SMEAR(Performed 04/22/2012) * CULTURE SPUTUM+GRAM STAIN(Performed 04/22/2012) * SPIROMETRY W BD - POCT (AMB) SLU(Performed 04/05/2012) * SPIROMETRY - POCT (AMB) SLU(Performed 04/05/2012) * LAB HISTORICAL RESULTS-ONBASE(Performed 03/21/2012) * LAB HISTORICAL RESULTS-ONBASE(Performed 01/16/2012) * THEOPHYLLINE LEVEL(Performed 08/15/2011) * TSH(Performed 08/15/2011) * RENAL FUNCTION PANEL(Performed 08/15/2011) * COMPREHENSIVE METABOLIC PANEL(Performed 08/15/2011) * T4 FREE(Performed 08/15/2011) * [place] BLOOD SCREEN(Performed 08/15/2011) * DNA ANTIBODY DOUBLE STRANDED(Performed 08/15/2011) * [place] TITER AND PATTERN RFLXD(Performed 08/15/2011) * RHEUMATOID FACTOR BLOOD QUANTITATIVE(Performed 08/15/2011) * HEPATIC FUNCTION PANEL(Performed 03/28/2011) * LAB HISTORICAL RESULTS-ONBASE(Performed 03/28/2011) * LAB HISTORICAL RESULTS-ONBASE(Performed 12/01/2010) * LAB HISTORICAL RESULTS-ONBASE(Performed 08/08/2010) * NEUTROPHIL CYTOPLASMIC ANTIBODY(Performed 06/30/2010) * CYCLIC CITRULLINATED PEPTIDE(CCP) AB IGG(Performed 06/30/2010) * LUPUS ANTICOAGULANT PANEL(Performed 06/30/2010) * SS-B (SJOGREN'S) ANTIBODY(Performed 06/30/2010) * SS-A (SJOGREN'S) ANTIBODY(Performed 06/30/2010) * MCCULLOUGH (SM) ANTIBODY LEO(Performed 06/30/2010) * SCLERODERMA 70 (SCL) ANTIBODY(Performed 06/30/2010) * FINISHING INSPECTOR ANTIBODY(Performed 06/30/2010) * [place] BLOOD SCREEN(Performed 06/30/2010) * DNA ANTIBODY DOUBLE STRANDED(Performed 06/30/2010) * COMPLEMENT TOTAL(Performed 06/30/2010) * [place] W REFLEX DS-DNA+LEO+SSJ(Performed 06/30/2010) * CARDIOLIPIN ANTIBODY IGM(Performed 06/30/2010) * CARDIOLIPIN ANTIBODY IGG(Performed 06/30/2010) * CARDIOLIPIN ANTIBODY IGA(Performed 06/30/2010) * CBC W AUTO DIFFERENTIAL(Performed 06/30/2010) * IGG BLOOD(Performed 06/30/2010) * COMPLEMENT C4(Performed 06/30/2010) * COMPLEMENT C3(Performed 06/30/2010) * GROSS + MICRO EXAM(Performed 07/16/2009) * GROSS + MICRO EXAM(Performed 07/16/2009) Performed for Personal History of Colonic Polyps * HELICOBACTER PYLORI UREASE(Performed 07/16/2009) Performed for Personal History of Colonic Polyps * HCG URINE QUALITATIVE - POINT OF CARE(Performed 07/16/2009) Performed for Personal History of Colonic Polyps * ENDOSCOPY ORDER(Performed 07/16/2009) * PATHOLOGY REPORTS - HPF HISTORICAL(Performed 02/02/2009) * SPIROMETRY - POCT (AMB) SLU(Performed 10/29/1998) * SPIROMETRY - POCT (AMB) SLU(Performed 10/29/1998) * SPIROMETRY - POCT (AMB) SLU(Performed 10/29/1998) * SPIROMETRY - POCT (AMB) SLU(Performed 10/29/1998) * SPIROMETRY - POCT (AMB) SLU(Performed 10/29/1998) * SPIROMETRY - POCT (AMB) SLU(Performed 10/29/1998) * SPIROMETRY - POCT (AMB) SLU(Performed 10/29/1998) Results * SCLEROSIS 12 ANTIBODY PNL (10/16/2024 9:45 AM TOOL CRIB LEAD) SCL-70 <11 <11 SI [facility] Centromere protein [...] 75 <11 <11 SI [facility] Comment: The [place] [employer] (ACR) considers anti-Scl-70 (also [...] patients and anti-RP155 antibodies in about 8%. Lcsf-[id number] antibodies are associated with SSc and inflammatory myopathy overlap syndromes. Three major components of U1-snRNP are tested: U1-snRNP FINISHING INSPECTOR A, U1-snRNP FINISHING INSPECTOR C, U1-snRNP SZQ53yl. The presence of U1-snRNP antibodies occur in [...] Fibrillarin antibodies are found more frequently in -[place] patients and when seen in this population, [...] is directed to one of two proteins: PM/Grm507 and/or PM/Scl75. More information can be found at https://www.Varolii.Boedo/testcenter/testguide.action ?dc=CF-SystScler This test was developed and its analytical performance characteristics have been determined by [employer]. It has not been cleared or approved by FDA. This assay has been validated pursuant to the CLIA regulations and is used for clinical purposes. REPORT COMMENT: FASTING:YES Test Performed at: [facility] [address] [place] [address] NIKKI COPE MD,PHD,ILEANA Blood BLOOD SPECIMEN / Unknown 10/16/2024 9:45 AM TOOL CRIB LEAD 10/16/2024 9:48 AM TOOL CRIB LEAD Ryan Morris MD LAB - SEROLOGY ORDER ROMINA Performing Organization Address City/State/[facility] Co de Phone Number [facility] [address] [place] [address] * DNA ANTIBODY DS CRITHIDIA W/REFLEX TITER (10/16/2024 9:45 AM TOOL CRIB LEAD) Only the most recent of2 resultswithin the time period is included. dsDNA Antibody Crithidia IFA NEGATIVE NEGATIVE [facility] Comment: Test Performed at: [facility] [address] [place] [address] NIKKI COPE MD,PHD,ILEANA Blood BLOOD SPECIMEN / Unknown 10/16/2024 9:45 AM TOOL CRIB LEAD 10/16/2024 9:48 AM TOOL CRIB LEAD Ryan Morris MD LAB - HEMATOLOGY ORD ERABLES Performing Organization Address [facility] Co de Phone Number [facility] [address] [place] [address] * URINALYSIS W/MICROSCOPIC NO CULTURE (10/16/2024 9:45 AM TOOL CRIB LEAD) Only the most recent of6 resultswithin the time period is included. Color UA YELLOW YELLOW [facility] Appearance CLEAR CLEAR [facility] Specific [place] UA 1.010 1.001 - 1.035 [facility] pH [...] SEEN /LPF [facility] Comment: Test Performed at: [facility] [id number] [place] [address] TUCKER CULVER MD Granular Casts [facility] Casts UA [facility] Yeast [facility] Comments [facility] Note [facility] Comment: Test Performed at: [facility] [address] [place] [address] TUCKER CULVER MD Urine URINE SPECIMEN OBTAINED BY CLEAN CATCH PROCEDURE / Unknown 10/16/2024 9:45 AM TOOL CRIB LEAD 10/16/2024 9:48 AM TOOL CRIB LEAD Ryan Morris MD LAB - URINALYSIS ORD ERABLES Performing Organization Address [facility] de Phone Number [facility] [phone] [place] [address] * CHROMATIN ANTIBODY (10/16/2024 9:45 AM TOOL CRIB LEAD) Only the most recent of2 resultswithin the time period is included. Chromatin Nucleosomal Antibody <1.0 NEG <1.0 NEG AI [facility] Comment: Test Performed at: [facility] [address] [place] [address] TUCKER CULVER MD Blood BLOOD SPECIMEN / Unknown 10/16/2024 9:45 AM TOOL CRIB LEAD 10/16/2024 9:48 AM TOOL CRIB LEAD Ryan Morris MD LAB - SEROLOGY ORDER ROMINA Performing Organization Address [facility] de Phone Number [facility] [phone] [place] [address] * CARDIOLIPIN ANTIBODY IGA (10/16/2024 9:45 AM TOOL CRIB LEAD) Only the most recent of2 resultswithin the time period is included. Pathologist [facility] Cardiolipin Antibody IgA <2.0 APL-U/mL [facility] Comment: [...] aging. For additional information, please refer to http://Kingtop.Paradial/faq/GNP002 (This link is being provided for informational/ educational purposes only.) Test Performed at: [facility] [place] [address] EDGAR GRAYSON Blood BLOOD SPECIMEN / Unknown 10/16/2024 9:45 AM TOOL CRIB LEAD 10/16/2024 9:48 AM TOOL CRIB LEAD Ryan Morris MD LAB - SEROLOGY ORDER ROMINA [employer] [address] [place] [address] * CARDIOLIPIN ANTIBODY IGM (10/16/2024 9:45 AM TOOL CRIB LEAD) Only the most recent of2 resultswithin the time period is included. Cardiolipin Antibody IgM <2.0 MPL-U/mL [facility] Comment: [...] aging. For additional information, please refer to http://Kingtop.Paradial/faq/JNP180 (This link is being provided for informational/ educational purposes only.) Test Performed at: [facility] [facility] [place] [address] EDGAR GRAYSON Blood BLOOD SPECIMEN / Unknown 10/16/2024 9:45 AM TOOL CRIB LEAD 10/16/2024 9:48 AM TOOL CRIB LEAD Ryan Morris MD LAB - SEROLOGY ORDER ROMINA Performing Organization Address [facility] Co de Phone Number [facility] [address] [place] [address] * CARDIOLIPIN ANTIBODY IGG (10/16/2024 9:45 AM TOOL CRIB LEAD) Only the most recent of2 resultswithin the time period is included. Cardiolipin Antibody IgG <2.0 GPL-U/mL [employer] Comment: Value Interpretation ----- < 20.0 Antibody [...] aging. For additional information, please refer to http://education.Paradial/faq/MZC418 (This link is being provided for informational/ educational purposes only.) Test Performed at: [facility] [address] [address] EDGAR GRAYSON Blood BLOOD SPECIMEN / Unknown 10/16/2024 9:45 AM TOOL CRIB LEAD 10/16/2024 9:48 AM TOOL CRIB LEAD Ryan Morris MD LAB - SEROLOGY ORDER ROMINA Performing Organization Address [facility] de Phone Number [facility] [address] [place] [address] * BETA-2 GLYCOPROTEIN 1 ANTIBODY IGG/IGM/IGA PANEL (10/16/2024 9:45 AM TOOL CRIB LEAD) Beta-2 Glycoprotein I Antibody IgG <2.0 <20.0 U/mL [facility] Comment: Value Interpretation ----- < 20.0 Antibody not detected > or = 20.0 Antibody detected Beta-2 Glycoprotein I Antibody IgM <2.0 <20.0 U/mL [facility] Comment: Value Interpretation ----- < 20.0 Antibody not detected > or = 20.0 Antibody detected Beta-2 Glycoprotein I Antibody IgA <2.0 <20.0 U/mL [facility] Comment: Value Interpretation ----- < 20.0 Antibody [...] aging. For additional information, please refer to http://education.Paradial/faq/IBA851 (This link is being provided for informational/ educational purposes only.) Test Performed at: [facility] [address] [place] [address] KHUSHBU VILLAGRAN MD,PHD Blood BLOOD SPECIMEN / Unknown 10/16/2024 9:45 AM TOOL CRIB LEAD 10/16/2024 9:48 AM TOOL CRIB LEAD Ryan Morris MD LAB - SEROLOGY ORDER ROMINA [employer] [address] [place] [address] * MCCULLOUGH (SM) ANTIBODY LEO (10/16/2024 9:45 AM TOOL CRIB LEAD) Only the most recent of3 resultswithin the time period is included. SM Antibody <1.0 NEG <1.0 NEG AI [facility] Comment: Test Performed at: [facility] [place] [address] TUCKER CULVER MD Blood BLOOD SPECIMEN / Unknown 10/16/2024 9:45 AM TOOL CRIB LEAD 10/16/2024 9:48 AM TOOL CRIB LEAD Ryan Morris MD LAB - CHEMISTRY MINESH HAMILTON Performing Organization Address [facility] Co de Phone Number [facility] [phone] [place] [address] * FINISHING INSPECTOR ANTIBODY (10/16/2024 9:45 AM TOOL CRIB LEAD) Only the most recent of3 resultswithin the time period is included. FINISHING INSPECTOR Antibody <1.0 NEG <1.0 NEG AI [facility] Comment: Test Performed at: [facility] [address] TUCKER CULVER MD Blood BLOOD SPECIMEN / Unknown 10/16/2024 9:45 AM TOOL CRIB LEAD 10/16/2024 9:48 AM TOOL CRIB LEAD Ryan Morris MD LAB - CHEMISTRY MINESH HAMILTON Performing Organization Address [facility] de Phone Number [facility] [address] [place] [address] * RHEUMATOID FACTOR BLOOD QUANTITATIVE (10/16/2024 9:45 AM TOOL CRIB LEAD) Only the most recent of3 resultswithin the time period is included. Rheumatoid Factor <10 <14 IU/mL [facility] Comment: Test Performed at: [facility] [place] [address] TUCKER CULVER MD Blood BLOOD SPECIMEN / Unknown 10/16/2024 9:45 AM TOOL CRIB LEAD 10/16/2024 9:48 AM TOOL CRIB LEAD Ryan Morris MD LAB - CHEMISTRY MINESH HAMILTON Performing Organization Address [facility] Co de Phone Number [facility] [address] [place] [address] * C-REACTIVE PROTEIN (10/16/2024 9:45 AM TOOL CRIB LEAD) Only the most recent of3 resultswithin the time period is included. Pathologist [facility] C-Reactive Protein 6.6 <8.0 mg/L [facility] Comment: Test Performed at: [facility] [address] [facility] [address] TUCKER CULVER MD Blood BLOOD SPECIMEN / Unknown 10/16/2024 9:45 AM TOOL CRIB LEAD 10/16/2024 9:48 AM TOOL CRIB LEAD Ryan Morris MD LAB - CHEMISTRY MINESH HAMILTON Performing Organization Address [facility] Co de Phone Number [facility] [address] [place] [address] * (ABNORMAL) [place] BLOOD TITER (10/16/2024 9:45 AM TOOL CRIB LEAD) [facility] V[place] 1:80(H) titer [facility] Comment: A low level [place] titer may be present in pre-clinical autoimmune diseases and normal individuals. Reference Range <1:40 Negative 1:40-1:80 Low Antibody Level >1:80 Elevated Antibody Level [place] Pattern Nuclear, Homogeneou s(A) [facility] Comment: Homogeneous pattern is associated with systemic lupus erythematosus (SLE), drug-induced lupus and juvenile idiopathic arthritis. AC-1: Homogeneous International Consensus on [place] Patterns (https://doi.org/10.1515/yark-6168-1378) Test Performed at: [facility] [address] [facility] [address] TUCKER CULVER MD 10/16/2024 9:45 AM TOOL CRIB LEAD 10/16/2024 9:48 AM TOOL CRIB LEAD Ryan Morris MD LAB - CHEMISTRY MINESH HAMILTON Performing Organization Address [facility] Co de Phone Number [facility] [address] [place] [address] * (ABNORMAL) [place] BLOOD SCREEN W/REFLEX TITER (10/16/2024 9:45 AM TOOL CRIB LEAD) Only the most recent of4 resultswithin the time period is included. [facility] [place] Screen POSITIVE( A) NEGATIVE [facility] Comment: [place] IFA is a first line screen for detecting the presence of up to approximately 150 autoantibodies in various autoimmune diseases. A positive [place] IFA result is suggestive of autoimmune disease and reflexes to titer and pattern. Further laboratory testing may be considered if clinically indicated. For additional information, please refer to http://education.LightPole/faq/WNH394 (This link is being provided for informational/ educational purposes only.) Test Performed at: [facility] [address] [place] [address] TUCKER CULVER MD Blood BLOOD SPECIMEN / Unknown 10/16/2024 9:45 AM TOOL CRIB LEAD 10/16/2024 9:48 AM TOOL CRIB LEAD Ryan Morris MD LAB - CHEMISTRY MINESH HAMILTON Performing Organization Address [facility] Co de Phone Number [facility] [address] [place] [address] * RIBOSOMAL P PROTEIN ANTIBODY (10/16/2024 9:45 AM TOOL CRIB LEAD) Ribosomal P Protein Antibody <1.0 NEG <1.0 NEG AI [facility] Comment: Test Performed at: [facility] [address] [facility] [address] TUCKER CULVER MD Blood BLOOD SPECIMEN / Unknown 10/16/2024 9:45 AM TOOL CRIB LEAD 10/16/2024 9:48 AM TOOL CRIB LEAD Ryan Morris MD LAB - CHEMISTRY MINESH HAMILTON Performing Organization Address [facility] Co de Phone Number [address] [address] * (ABNORMAL) HISTONE ANTIBODY (10/16/2024 9:45 AM TOOL CRIB LEAD) Histone Antibodies 1.6(H) U [facility] Comment: Value Explanation of Results ------ <1.0 Negative 1.0-1.5 Weak Positive 1.6-2.5 Moderate Positive >2.5 Strong Positive REPORT COMMENT: FASTING:YES Test Performed at: [facility] [place] [address] [place] [address] EDGAR GRAYSON Blood BLOOD SPECIMEN / Unknown 10/16/2024 9:45 AM TOOL CRIB LEAD 10/16/2024 9:48 AM TOOL CRIB LEAD Ryan Morris MD LAB - CHEMISTRY MINESH HAMILTON Performing Organization Address [facility] Co de Phone Number [facility] [phone] [place] [address] * (ABNORMAL) COMPLEMENT TOTAL (10/16/2024 9:45 AM TOOL CRIB LEAD) Only the most recent of3 resultswithin the time period is included. Pathologist [facility] Complement Total CH50 >60(H) 31 - 60 U/mL [facility] Comment: Test Performed at: [employer] [place] [address] TUCKER CULVER MD Blood BLOOD SPECIMEN / Unknown 10/16/2024 9:45 AM TOOL CRIB LEAD 10/16/2024 9:48 AM TOOL CRIB LEAD Ryan Morris MD LAB - CHEMISTRY MINESH HAMILTON Performing Organization Address [facility] Co de Phone Number [facility] [phone] [place] [address] * SS-B (SJOGREN'S) ANTIBODY (10/16/2024 9:45 AM TOOL CRIB LEAD) Only the most recent of3 resultswithin the time period is included. Pathologist [facility] Sjogren's Antibodies (SSB) <1.0 NEG <1.0 NEG AI [facility] Comment: Test Performed at: [employer] [place] [address] TUCKER CULVER MD Blood BLOOD SPECIMEN / Unknown 10/16/2024 9:45 AM TOOL CRIB LEAD 10/16/2024 9:48 AM TOOL CRIB LEAD Ryan Morris MD LAB - CHEMISTRY MINESH HAMILTON Performing Organization Address [facility] Co de Phone Number [facility] [phone] [place] [address] * SS-A (SJOGREN'S) ANTIBODY (10/16/2024 9:45 AM TOOL CRIB LEAD) Only the most recent of3 resultswithin the time period is included. Sjogren's Antibodies (SSA) <1.0 NEG <1.0 NEG AI [facility] Comment: Test Performed at: [facility] [place] [address] TUCKER CULVER MD Blood BLOOD SPECIMEN / Unknown 10/16/2024 9:45 AM TOOL CRIB LEAD 10/16/2024 9:48 AM TOOL CRIB LEAD Ryan Morris MD LAB - CHEMISTRY MINESH HAMILTON Performing Organization Address [facility] Co de Phone Number [facility] [address] [place] [address] * DNA ANTIBODY DOUBLE STRANDED (10/16/2024 9:45 AM TOOL CRIB LEAD) Only the most recent of3 resultswithin the time period is included. dsDNA Antibody <1 IU/mL [facility] Comment: IU/mL Interpretation < or = 4 Negative 5-9 Indeterminate > or = 10 Positive Test Performed at: [place] [address] TUCKER CULVER MD Blood BLOOD SPECIMEN / Unknown 10/16/2024 9:45 AM TOOL CRIB LEAD 10/16/2024 9:48 AM TOOL CRIB LEAD Ryan Morris MD LAB - HEMATOLOGY ORD ERABLES Performing Organization Address [facility] Co de Phone Number [facility] [address] [place] [address] * HINA-1 ANTIBODY (10/16/2024 9:45 AM TOOL CRIB LEAD) Hina-1 Antibody <1.0 NEG <1.0 NEG AI [facility] Comment: Test Performed at: [place] [address] TUCKER CULVER MD Blood BLOOD SPECIMEN / Unknown 10/16/2024 9:45 AM TOOL CRIB LEAD 10/16/2024 9:48 AM TOOL CRIB LEAD Ryan Morris MD LAB - CHEMISTRY MINESH HAMILTON Performing Organization Address [facility] Co de Phone Number [facility] [address] [place] [address] * ALDOLASE (10/16/2024 9:45 AM TOOL CRIB LEAD) Only the most recent of2 resultswithin the time period is included. Pathologist [facility] Aldolase 4.1 < OR = 8.1 U/L [facility] Comment: REPORT COMMENT: FASTING:YES Test Performed at: [facility] [address] [facility] [address] TUCKER CULVER MD Blood BLOOD SPECIMEN / Unknown 10/16/2024 9:45 AM TOOL CRIB LEAD 10/16/2024 9:48 AM TOOL CRIB LEAD Ryan Morris MD LAB - CHEMISTRY ORDE ALFONSO Performing Organization Address City/[facility] Co de Phone Number [facility] [address] [place] [address] * (ABNORMAL) ERYTHROCYTE SEDIMENTATION RATE (10/16/2024 9:45 AM TOOL CRIB LEAD) Only the most recent of2 resultswithin the time period is included. [facility] Erythrocyte Sedimentation Rate Westergren 39(H) < OR = 30 mm/h [facility] Comment: Test Performed at: [facility] [place] [address] TUCKER CULVER MD Blood BLOOD SPECIMEN / Unknown 10/16/2024 9:45 AM TOOL CRIB LEAD 10/16/2024 9:48 AM TOOL CRIB LEAD Ryan Morris MD LAB - HEMATOLOGY ORD ERABLES Performing Organization Address City/[facility] Co de Phone Number [facility] [address] [place] [address] * (ABNORMAL) CBC WITH DIFFERENTIAL (10/16/2024 9:45 AM TOOL CRIB LEAD) Only the most recent of136 resultswithin the time period is included. Pathologist [facility] White Blood Cell Count 7.6 [...] 1.0 % [facility] Comment: Test Performed at: [employer] [facility] [id number] TUCKER CULVER MD Blood BLOOD SPECIMEN / Unknown 10/16/2024 9:45 AM TOOL CRIB LEAD 10/16/2024 9:48 AM TOOL CRIB LEAD Ryan Morris MD LAB - HEMATOLOGY ORD ERABLES Performing Organization Address [facility] Co de Phone Number [facility] [address] [place] [address] * COMPLEMENT C4 (10/16/2024 9:45 AM TOOL CRIB LEAD) Only the most recent of3 resultswithin the time period is included. Complement C4 42 15 - 57 mg/dL [facility] Comment: Test Performed at: [employer] [id number] [place] [place] [id number] TUCKER CULVER MD Blood BLOOD SPECIMEN / Unknown 10/16/2024 9:45 AM TOOL CRIB LEAD 10/16/2024 9:48 AM TOOL CRIB LEAD Ryan Morris MD LAB - SEROLOGY ORDER ROMINA Performing Organization Address City/[facility] Co de Phone Number [facility] [address] [place] [address] * (ABNORMAL) COMPREHENSIVE METABOLIC PANEL (10/16/2024 9:45 AM TOOL CRIB LEAD) Only the most recent of28 resultswithin the time period is included. Glucose 101(H) 65 - 99 mg/dL [facility] [...] 29 U/L [facility] Comment: Test Performed at: [employer] [id number] [place] [id number] TUCKER CULVER MD Blood BLOOD SPECIMEN / Unknown 10/16/2024 9:45 AM TOOL CRIB LEAD 10/16/2024 9:48 AM TOOL CRIB LEAD Ryan Morris MD LAB - CHEMISTRY MINESH HAMILTON [facility] [address] [place] [address] * CK BLOOD (10/16/2024 9:45 AM TOOL CRIB LEAD) Only the most recent of6 resultswithin the time period is included. Pathologist [facility] CK 69 29 - 143 U/L [facility] Comment: Test Performed at: [employer] [facility] [id number] TUCKER CULVER MD Blood BLOOD SPECIMEN / Unknown 10/16/2024 9:45 AM TOOL CRIB LEAD 10/16/2024 9:48 AM TOOL CRIB LEAD Ryan Morris MD LAB - CHEMISTRY MINESH HAMILTON Performing Organization Address [facility] Co de Phone Number [facility] [phone] [place] [address] * (ABNORMAL) IMMUNOGLOBULINS IGG/IGM/IGA PANEL (10/16/2024 9:45 AM TOOL CRIB LEAD) Only the most recent of2 resultswithin the time period is included. IgA 110 47 - 310 mg/dL [facility] IgG 1395 600 - 1640 mg/dL [facility] IgM 29(L) 50 - 300 mg/dL [facility] Comment: Test Performed at: [employer] [facility] [id number] TUCKER CULVER MD Blood BLOOD SPECIMEN / Unknown 10/16/2024 9:45 AM TOOL CRIB LEAD 10/16/2024 9:48 AM TOOL CRIB LEAD Ryan Morris MD LAB - CHEMISTRY MINESH HAMILTON Performing Organization Address [facility] de Phone Number [facility] [phone] [place] [address] * (ABNORMAL) COMPLEMENT C3 (10/16/2024 9:45 AM TOOL CRIB LEAD) Only the most recent of3 resultswithin the time period is included. Complement C3 208(H) 83 - 193 mg/dL [facility] Comment: Test Performed at: [employer] [facility] [id number] TUCKER CULVER MD Blood BLOOD SPECIMEN / Unknown 10/16/2024 9:45 AM TOOL CRIB LEAD 10/16/2024 9:48 AM TOOL CRIB LEAD Ryan Morris MD LAB - CHEMISTRY MINESH HAMILTON Performing Organization Address [facility] Co de Phone Number [facility] [address] [place] [address] * XR Foot Right 3Vw or More (10/02/2024 10:47 AM TOOL CRIB LEAD) Anatomical Region Laterality Modality Ankle / Foot Digital Radiogra phy 10/02/2024 10:5 0 AM TOOL CRIB LEAD Impressions 10/02/2024 11:11 AM TOOL CRIB LEAD IMPRESSION: Right hand: Normal Left hand: Normal Right foot: 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 Left foot: No evidence of arthritis. Report dictated by Jose Shrestha MD (workforce development vice president). I, Ayden Heard MD have personally reviewed and interpreted this examination/study. 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 Report dictated by Jose Shrestha MD (workforce development vice president). I, Ayden Heard MD have personally reviewed and interpreted this examination/study. 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 Left foot: No evidence of arthritis. Report dictated by Jose Shrestha MD (workforce development vice president). I, Ayden Heard MD have personally reviewed and interpreted this examination/study. 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 Report dictated by Jose Shrestha MD (workforce development vice president). I, Ayden Heard MD have personally reviewed and interpreted this examination/study. 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 Left foot: No evidence of arthritis. Report dictated by Jose Shrestha MD (workforce development vice president). I, Ayden Heard MD have personally reviewed and interpreted this examination/study. 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 Report dictated by Jose Shrestha MD (workforce development vice president). I, Ayden Heard MD have personally reviewed and interpreted this examination/study. 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 Left foot: No evidence of arthritis. Report dictated by Jose Shrestha MD (workforce development vice president). I, Ayden Heard MD have personally reviewed and interpreted this examination/study. 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 Report dictated by Jose Shrestha MD (workforce development vice president). I, Ayden Heard MD have personally reviewed and interpreted this examination/study. > Interpreting Provider: Ayden Heard MD on 10/02/2024 11:11 AM Ryan Morris MD DIAGNOSTIC IMAGING O RDERABLES * MN NASAL ENDOSCOPY,DX (10/01/2024 1:33 PM TOOL CRIB LEAD) Narrative Mark Kwong MD - 10/01/2024 1:33 PM TOOL CRIB LEAD Mark Kwong MD 10/02/2024 9:20 AM Procedure: [...] Angeles MD PROCEDURE/MINOR VINITA GICAL ORDERABLES * CT Chest Wo Cont And Hires (06/23/2024 10:46 AM CDT) Only the most recent of7 resultswithin the time period is included. Anatomical Region Laterality Modality Chest Computed Tomogra phy 06/23/2024 11:0 1 AM CDT Impressions 06/23/2024 11:46 AM CDT Impression: 1.Unchanged 1.8 cm nodular opacity in the left lower lobe. Continued follow-up is recommended. 2.Bronchial wall thickening with luminal narrowing noted in the lower lobes bilaterally associated with air trapping in the expiratory phase images especially posteriorly in the lower lobes consistent with bronchitis/reactive airway disease. > Dictated by Miguel Angel Thomas MD, (workforce development vice president). I, Tereso Winters MD have personally reviewed and interpreted this examination/study. > Interpreting Provider: Tereso Winters MD on 06/23/2024 11:46 AM Narrative 06/23/2024 11:46 AM CDT PROCEDURE: CT CHEST WO CONT AND HIRES, DATE/TIME OF EXAM: 06/23/2024 10:47 AM, LOCATION [facility] INDICATION: J45.998: Persistent asthma with undetermined severity (HCC) J44.9: Chronic obstructive pulmonary disease, unspecified COPD type (HCC) J98.8: Recurrent respiratory infection R91.1: Lung nodule D83.9: CVID (common variable immunodeficiency) ([facility]) ADDITIONAL CLINICAL INFORMATION: Ordering Provider Reason For Exam: Technologist Note: Additional: COMPARISON: CT chest 11/26/2023 and 01/16/2023 TECHNIQUE: CT of the chest was performed without contrast according to standard protocol. Then, utilizing a high-resolution algorithm, 1 mm noncontiguous axial images of the chest were obtained in inspiration and expiration. Findings: Evaluation of visceral and vascular structures is degraded due to lack of intravenous contrast administration. Right internal jugular approach central venous catheter terminates in the distal superior vena cava. Lower Neck and Axillae: Normal. Lungs: No significant change in pulmonary nodule in the left lower lobe that measures approximately 1.8 cm in transverse dimension (series 5 image 18), without significant change upon remeasurement from previous examination. Bronchial wall thickening with luminal narrowing noted in the lower lobes bilaterally. There are air trapping noted in the expiratory phase images. There is no evidence of reticulation or groundglass opacities. No architectural distortion or honeycombing is visible. Mild air trapping is seen on expiratory images. No pleural fluid or pneumothorax is present. Heart and Pericardium: The cardiac chambers are normal in size. No pericardial fluid or thickening is present. Mediastinum and Gogo: No enlarged lymph nodes are present. Thoracic Vasculature: No vascular abnormality is present. Bones and Chest Wall: Bone windows demonstrate no suspicious lytic or blastic lesions. The visible osseous structures are intact. Upper Abdomen: The visible portions of the upper abdominal organs are normal. Gallbladder is absent. Procedure Note Tereso Winters MD - 06/23/2024 PROCEDURE: CT CHEST CHUY COMBS, DATE/TIME OF EXAM: 0:47 AM, LOCATION [facility] INDICATION: J45.998: Persistent asthma with undetermined severity (HCC) J44.9: Chronic obstructive pulmonary disease, unspecified COPD type(HCC) J98.8: Recurrent respiratory infection R91.1: Lung nodule D83.9: CVID (common variable immunodeficiency) ([facility]) ADDITIONAL CLINICAL INFORMATION: Ordering Provider Reason For Exam: Technologist Note: Additional: COMPARISON: CT chest 11/26/2023 and 01/16/2023 TECHNIQUE: CT of the chest was performed without contrast according to standard protocol. Then, utilizing a high-resolution algorithm, 1 mm noncontiguous axial images of the chest were obtained in inspiration and expiration. Findings: Evaluation of visceral and vascular structures is degraded due to lackof intravenous contrast administration. Right internal jugular approach central venous catheter terminates inthe distal superior vena cava. Lower Neck and Axillae: Normal. Lungs: No significant change in pulmonary nodule in the left lower lobe that measures approximately 1.8 cm in transverse dimension (series 5 image18), without significant change upon remeasurement from previous examination. Bronchial wall thickening with luminal narrowing noted in the lowerlobes bilaterally. There are air trapping noted in the expiratory phaseimages. There is no evidence of reticulation or groundglass opacities. No architectural distortion or honeycombing is visible. Mild air trappingis seen on expiratory images. No pleural fluid or pneumothorax is present. Heart and Pericardium: The cardiac chambers are normal in size. No pericardial fluid orthickening is present. Mediastinum and Gogo: No enlarged lymph nodes are present. Thoracic Vasculature: No vascular abnormality is present. Bones and Chest Wall: Bone windows demonstrate no suspicious lytic or blastic lesions. The visible osseous structures are intact. Upper Abdomen: The visible portions of the upper abdominal organs are normal.Gallbladder is absent. Impression: 1.Unchanged 1.8 cm nodular opacity in the left lower lobe. Continued follow-up is recommended. 2.Bronchial wall thickening with luminal narrowing noted in the lowerlobes bilaterally associated with air trapping in the expiratory phase images especially posteriorly in the lower lobes consistent with bronchitis/reactive airway disease. > Dictated by Miguel Angel Thomas MD, (workforce development vice president). I, Tereso Winters MD have personally reviewed and interpreted this examination/study. > Interpreting Provider: Tereso Winters MD on 411:46 AM Bonifacio Easton MD CT ORDERABLES * MN ENDO NASAL SINUS BX POLYP DEBRID COREY (04/29/2024 12:18 PM CDT) Narrative Mark Kwong MD - 04/29/2024 12:18 PM CDT Mark Kwong MD 04/29/2024 7:49 PM Procedure: Rigid Nasal Endoscopy Anesthesia: Bilateral Nasal Cavities sprayed with lidocaine and Neosynephrine Detail: Rigid nasal endoscopy performed bilaterally. Post-surgical changes bilaterally consistent with prior draf 3 procedure. Right nasal cavity showed crusting of the posterior septectomy and super ethmoids. This was debrided. There was also some diffuse allergic mucin crusting on the left and secretions int he right middle meatus which were debrided. The patient tolerated the procedure well. Dr. Olea was present for the entire procedure. Chinmay Olea MD PROCEDURE/MINOR S URGICAL ORDERABLES * MN LARYNGOSCOPY,FLEX FIBER,DIAGNOSTIC (04/29/2024 12:04 PM CDT) Narrative Mark Kwong MD - 04/29/2024 12:04 PM CDT Mark Kwong MD 04/29/2024 7:49 PM Procedure Note Endoscopy Type: Laryngoscopy without stroboscopy [id number] Endoscope: Flexible 4mm Scope Anesthesia: Lidocaine 2% and Neosynephrine 1/2% (nasal) Procedure Details: The patient was sitting upright in a chair with the head in a slightly anterior sniffing position. The topical anesthesia was administered and then adequate time was allowed for an anesthetic effect. The endoscope was passed thru the nasal cavity with the tongue retracted anteriorly. The tip of the endoscope was positioned in the oropharynx which allowed a complete view of the base of tongue, vallecula, pyriform recesses, epiglottis, bilateral true and false vocal folds, the interarytenoid and post cricoid region, and the immediate subglottis. The exam was then repeated with the patient supine. Findings: Post-surgical changes throughout bilateral nasal cavities. There is crusting over the right posterior septectomy and diffuse allergic mucin. Secretions noted in left middle meatus. Symmetric palate rise. No significant adenoid tissue. Tonsils surgically absent. Mild lateral collapse at the soft palate especially when breathing against resistance. Jaw thrust with improvement in pharyngeal gutters and tongue base obstruction. Condition: Stable. Patient tolerated procedure well. Complications: None Dr. Olea was present for the entirety of the procedure. Chinmay Olea MD PROCEDURE/MINOR S URGICAL ORDERABLES * PROC SINUS ENDOSCOPY (04/11/2024 2:07 PM CDT) Narrative Gerardo Angeles MD - 04/11/2024 2:07 PM CDT Gerardo Angeles MD 04/11/2024 2:11 PM Procedure: Nasal Endoscopy With Debridement Anesthesia: Bilateral Nasal Cavity sprayed with Lidocaine and Phenylephrine Detail: Rigid nasal endoscopy was performed in bilateral nasal cavity. We visualized the entire septum as well as the inferior turbinate middle turbinate and superior turbinate. We also visualized the nasopharynx. Unless mentioned below these structures were normal. Removed crusting and thick secretions with suctions. Was then able to visualize widely patent [place] cavity. The secretions on both sides were most consistent in appearance with dried out allergic mucin. I was able to visualize into all 4 sinuses on both sides after removing the debris. This was primarily from the superior septectomy and into the frontal sinuses as well as in both maxillary and sphenoid sinuses. The mucosa appears decent with no severe polyposis. Patient tolerated well. Gerardo Angeles MD PROCEDURE/MINOR VINITA GICAL ORDERABLES * (ABNORMAL) CULTURE RESPIRATORY+GRAM STAIN (04/09/2024 4:27 PM CDT) Culture Moderate Staphylococcus aureus(A) NICOLETTE 04/11/2024 6:21 PM CDT [facility] Comment:Staphylococcus aureu s methicillin-susceptible (MSSA) detected by penicillin binding protein immunoassay. Gram Stain Rare Polymorphonuclear cells 04/11/2024 6:21 PM CDT [facility] Gram Stain Light Gram-positive cocci 04/11/2024 6:21 PM T [facility] Microbiology SINUS / Unknown Collection / Unknown 04/09/2024 4:27 PM CDT 04/09/2024 6:02 PM CDT Narrative Organism Antibiotic Method Susceptibility Staphylococcus aureus Cefazolin NICOLETTE Susceptible Staphylococcus aureus Clindamycin NICOLETTE 0.25 ug/mL: Resistant Staphylococcus aureus Doxycycline NICOLETTE <=0.5 ug/mL: Susceptible Staphylococcus aureus Inducible Clindamy jose c Resistance NICOLETTE POS ug/mL: Pos Staphylococcus aureus Oxacillin NICOLETTE 0.5 ug/mL: Susceptible Staphylococcus aureus Trimethoprim-sulfa methox azole NICOLETTE <=10 ug/mL: Susceptible Comment: This isolate is presumed to be resistant to clindamycin on the basis of detection of inducible clindamycin resistance. Staphylococcus sensitivity to oxacillin predicts susceptibility for nafcillin, ampicillin/sulbactam, amoxicillin/clavulanate, piperacillin/tazobactam, all cephalosporins (except ceftazidime, ceftazidime/avibactam, ceftolozane/tazobactam), and all carbapenems. Gerardo Angeles MD LAB - MICROBIOLOGY ORDERABLES [facility] [address] [place], [address] [phone] * Fractional Exhaled Nitric Oxide [facility] PFT Lab (04/04/2024 9:40 AM CDT) Impressions Moustapha Escobar MD - 04/04/2024 9:40 AM CDT [facility] DEPARTMENT OF PULMONARY, CRITICAL CARE, AND SLEEP MEDICINE EXHALED NITRIC OXIDE (FeNO) Federico Lambert 04/05/2024 INTERPRETATION The measurement of fractional exhaled nitric oxide (FENO) was 25 ppb. IMPRESSION: 1. High normal fractional exhaled nitric oxide. 2. No prior study to compare. Na Morgan MD PGY4 Pulmonary & Critical Care Fellow Division of Pulmonary, Critical Care, & Sleep Medicine [facility] Attestation: I have reviewed the test data and agree with Dr. Morgan's interpretation. Moustapha Escobar MD 04/08/2024 Narrative Moustapha Escobar MD - 04/04/2024 9:40 AM CDT Na Morgan MD 04/05/2024 3:27 PM Stanley Quezada MD RESPIRATORY THERAPY ORDERABLES * CARBON MONOXIDE DIFFUSER CAPACITY (DLCO) (04/04/2024 9:40 AM CDT) Narrative Moustapha Escobar MD - 04/04/2024 9:40 AM CDT Na Morgan MD 04/05/2024 3:29 PM Stanley Quezada MD RESPIRATORY THERAPY ORDERABLES * COMPLETE PFT W/WO BRONCHODILATOR (04/04/2024 9:40 AM CDT) Impressions Moustapha Escobar MD - 04/04/2024 9:40 AM CDT [facility] DEPARTMENT OF PULMONARY, CRITICAL CARE, AND SLEEP MEDICINE PULMONARY FUNCTION TEST Please see technologist's comments mentioned in the report. INTERPRETATION: SPIROMETRY: FVC: normal FEV1: moderately decreased(z-score -2.5 to -4.0). FEV1/FVC ratio is decreased. BRONCHODILATOR RESPONSE: There is no significant response to bronchodilator administration however does not preclude from bronchodilator therapy if clinically indicated otherwise FLOW-VOLUME LOOPS: small flow-volume loops LUNG VOLUMES: Lung volumes by body plethysmography show mild hyperinflation based on TLC(120-135% pred) and severe air-trapping based on RV(z-score > 4.0). DLCO: Unadjusted for Hb and COHb is normal(z-score -1.645 to 1.645) DLCO: Adjusted for Hb and COHb is: not performed AIRWAY RESISTANCE: The airway resistance is increased and the specific conductance is decreased ARTERIAL BLOOD GAS ANALYSIS: not performed IMPRESSION: 1. Moderate obstructive ventilatory limitation. There is mild pulmonary hyperinflation and severe air-trapping. 2. Normal unadjusted DLCO 3. No significant bronchodilator response, however this does not preclude the use of bronchodilators therapy if clinically indicated 4. When compared to the previous study on 11/01/2022, there is significant decrease of FEV1 by 250ml, and significant increase of TLC by 410ml. There is no significant change of FVC or DLCO. Na Morgan MD PGY4 Pulmonary & Critical Care Fellow Division of Pulmonary, Critical Care and Sleep Medicine [facility] Attestation: I have reviewed the test data and agree with Dr. Morgan's interpretation. Moustapha Escobar MD 04/08/2024 Narrative Moustapha Escobar MD - 04/04/2024 9:40 AM CDT Na Morgan MD 04/05/2024 3:29 PM Stanley Quezada MD RESPIRATORY THERAPY ORDERABLES * MN PUNCH BX SKIN SINGLE LESION, MN PUNCH BX SKIN EA SEP ADDL (03/26/2024 11:59 AM CDT) Narrative Ty Molina MD - 03/26/2024 11:59 AM CDT Coreen Gann DO 03/26/2024 12:00 PM Risks, benefits and alternatives to punch biopsy were discussed with the patient. Verbal consent was obtained. Encounter Diagnoses Name Primary? Rash and other nonspecific skin eruption Yes Allergic contact dermatitis due to other agents Multiple benign melanocytic nevi of upper and lower extremities and trunk Actinic skin damage Bautista angioma Seborrheic keratoses Location: R breast, L flank Punch biopsy: 4 mm Skin prep: Alcohol Anesthesia: 1% lidocaine with epinephrine 1:100,000 buffered with sodium bicarbonate 8.4% in a 1:10 ratio, 2.5 mL used in total Closure: 4-0 nylon suture Dressing and wound care discussed. Specimen(s) placed in a patient labeled container and sent to [facility] Dermatopathology. Patient agrees to phone call for results and message if not available. Coreen Gann DO PGY-4 Dermatology Resident Ty Molina MD PROCEDURE/MINOR SURG ICAL ORDERABLES * DERMATOPATHOLOGY - Number of specimens (03/26/2024 11:03 AM CDT) Only the most recent of3 resultswithin the time period is included. Case Report Dermatopathology Report Case: [id number] Authorizing Provider: Ty Molina MD Collected: 03/26/2024 11:03 AM [facility] [facility] - Received: 03/26/2024 12:07 PM Dermatology Pathologist: Lenora Hogue MD Specimens: A) - Skin, right breast B) - Skin, left flank 4:00 PM CDT DERMATOPATHOLOGY LABORATORY Final Diagnosis Specimen A. 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 SKIN, left flank: LICHEN SCLEROSUS (L90.0) 4:00 PM CDT DERMATOPATHOLOGY LABORATORY Clinical History DDX: LSP vs Morphea vs atrophoderma, degos, contact dermatitis, erythema migrans, tinea, noninfectious granuloma. 4:00 PM CDT DERMATOPATHOLOGY LABORATORY Gross Description Specimen A: Received is one formalin filled container labeled with the patient's name and designated right breast. The specimen consists of a punch biopsy measuring 4x3x10 mm. Jar 0. Specimen B: Received is one formalin filled container labeled with the patient's name and designated left flank. The specimen consists of a punch biopsy measuring 4x3x5 mm. Jar 0. 4 4:00 PM T DERMATOPATHOLOGY LABORATORY Microscopic Description Specimen A. SKIN, right breast: There is a predominantly deep, perivascular and interstitial inflammatory infiltrate composed of lymphocytes and plasma cells with focal sclerosis of collagen. Verhoeff-Van Gieson (VVG) elastic stain highlights a normal distribution of elastic fibers. COMMENT: Histologically, localized scleroderma (morphea and its variants) is indistinguishable from systemic scleroderma (diffuse and limited forms). Specimen B. SKIN, left flank: There is compact hyperkeratosis, atrophy, and vacuolar alteration of the basal cell layer. The papillary dermis is sclerotic and homogeneous with an underlying lymphohistiocytic infiltrate. Verhoeff-Van Gieson (VVG) elastic stain highlights a loss of elastic fibers in the papillary dermis and superficial reticular dermis. 4:00 PM T DERMATOPATHOLOGY LABORATORY Disclaimer An external and internal positive and negative controls are appropriate for the histochemical, immunohistochemical and immunofluorescence stain(s) in this case (if any), except where stated explicitly. The performance characteristics of the stain(s) cited in this report were developed and its performance characteristic determined by the Dermatopathology Laboratory at [facility], directed by Dr. Thuy Hogue. These tests need not be, and therefore are not, approved by the [place] Food and Drug Administration. The tests are used for clinical purposes. Billing Codes Specimen Charges Stain Charges 36931 36352 1 1 [id number] 1 1 4 4:00 PM CDT DERMATOPATHOLOGY LABORATORY Embedded Images 4 4:00 PM CDT DERMATOPATHOLOGY LABORATORY Pathology/Cytology TISSUE SPECIMEN FROM SKIN / Unknown 03/26/2024 11:03 AM CDT 03/26/2024 12:07 PM CDT Miscellaneous samples (specimen) TISSUE SPECIMEN FROM SKIN / Unknown 03/26/2024 11:03 AM CDT 03/26/2024 12:07 PM CDT Ty Molina MD LAB - PATHOLOGY/CYTO LOGY ORDERABLES DERMATOPATHOLOGY LABORATORY [facility] - Department of Dermatology [place] [id number] [facility], 3rd Floor [address] [phone] * [place] EAR MICROSCOPY EXAMINATION (03/17/2024 2:12 PM CDT) Narrative Edgar Piper MD - 03/17/2024 2:12 PM CDT Edgar Piper MD 03/17/2024 2:12 PM Procedure: Microscopic exam of the ear(s) Indications: ETD Findings: See main note. Procedure in detail: The binocular operating microscope and and ear speculum were used to exam the ear(s). The patient tolerated the procedure well and there was no bleeding. Edgar Piper MD Edgar Piper MD PROCEDURE/MINOR VINITA GICAL ORDERABLES * CT TEMPORAL BONES WO CONTRAST (03/17/2024 12:45 PM CDT) Only the most recent of2 resultswithin the time period is included. Anatomical Region Laterality Modality Head Computed Tomogra phy 03/18/2024 7:26 AM CDT Impressions 03/18/2024 1:45 PM CDT IMPRESSION: Soft tissue density within the right middle ear cavity, as detailed above, there is greater than on previous examination. This may represent inflammatory/granulation tissue and/or cholesteatoma. Some soft tissue density within the inferior aspect of the left middle ear cavity as detailed above. This is new relative previous study. This may reflect inflammatory/granulation tissue and/or cholesteatoma. Thickening and retraction of both tympanic membranes in keeping with chronic inflammation. Mild thickening of the anterior wall the right external auditory canal which may reflect some inflammatory change. Clinical correlation and direct visualization are recommended. Mild mucous membrane thickening/fluid in the inferior right mastoid air cells. Mucous membrane thickening in all the visualized paranasal sinuses with thickening of the sinus plaza of chronic inflammation. Overall there is greater mucous membrane thickening in the paranasal sinuses that on the previous study. There is a calcification mucous membrane thickening in the maxillary sinuses which may reflect inspissated secretions and/or fungal sinus disease. Clinical correlation recommended. Postoperative changes in the involving the paranasal sinuses that appear similar to previous study. Perforation of the nasal septum that appear similar to previous study. Clinical correlation recommended. The report is dictated by Gomez Kamara DO, (workforce development vice president) I, Kelechi Roy MD have personally reviewed and interpreted this examination/study. > Interpreting Provider: Kelechi Roy MD on 03/18/2024 1:45 PM Narrative 03/18/2024 1:45 PM CDT PROCEDURE: CT TEMPORAL BONES WO CONTRAST, DATE/TIME OF EXAM: 03/17/2024 12:45 PM, LOCATION [facility] INDICATION: H74.43: Polyp of both middle ears ADDITIONAL CLINICAL INFORMATION: Ordering Provider Reason For Exam: Technologist Note: Additional: EXAMINATION: Computed tomography (CT) of the temporal bones without contrast TECHNIQUE: CT of the temporal bones was performed without contrast according to standard protocol. CT dose reduction technique was used, including Automated Exposure Control. COMPARISON: Comparison is made with a study from 06/20/2019. FINDINGS: The left auricle has a normal appearance. The left external auditory canal is patent. There is some thickening and retraction of the left tympanic membrane. The left mastoid air cells are well-developed and clear. The left tegmen tympani is intact. The left ossicular chain appears intact. There are focal areas of soft tissue thickening in the left middle ear cavity. These are present in the hypotympanum, the round window niche and slightly Prussak's space lateral to the upper portion of the incus. The scutum appears preserved. The left cochlea, vestibule, and semicircular canals have a normal appearance. The vestibular aqueduct is normal in size. The left carotid and facial canals have a normal appearance. The left internal auditory canals normal in size. The right auricle has a normal appearance. The right external auditory canals patent. There is some mild thickening of the anterior wall of the right external auditory canal. There is likely thickening and retraction of the right tympanic membrane. The right mastoid air cells are well-developed. There is mild mucous membrane thickening/fluid in the inferior right mastoid air cells. The right tegmen tympani appears intact. The right ossicular chain appears preserved. There is abnormal soft tissue density in the inferior aspect of the right middle air cavity opacifying the oval and round window niches and portions of the sinus tympani and facial recess. The scutum appears preserved. The right cochlea and vestibule have a normal appearance as do the right semicircular canals. The right vestibular aqueduct is normal in size. The right carotid and facial canals are normal. The right internal auditory canals normal in size. There is mucous membrane thickening in all the visualized paranasal sinuses. There is severe mucous membrane thickening in both frontal sinuses which are partially visualized as well as both ethmoid sinuses. There is moderate to severe mucous membrane thickening in the right maxillary sinus and moderate mucous membrane thickening in the left maxillary and both sphenoid sinuses. There is thickening of the plaza of all the paranasal sinuses consistent with chronic inflammation. There is some calcification within the mucous membrane thickening in the maxillary sinuses which may be seen in setting of inspissated secretions and/or fungal sinus disease. The right there are postoperative changes involving the paranasal sinuses with resection of ethmoid air cells and portions of middle turbinates bilaterally and bilateral nasoantral windows. There is a perforation in the upper portion of the nasal septum. When today's study is compared to previous temporal bone CT dated 20 June 2019, there is greater soft tissue density within the right middle ear cavity on today's study, the soft tissue density in the left middle ear cavity is new, and the thickening and retraction of the tympanic membranes is likely similar. The mucous membrane thickening in the paranasal sinuses is overall greater on today's study with greater thickening of the plaza of the paranasal sinuses. Calcification of the mucous membrane thickening in the maxillary sinuses. The postoperative changes involving the paranasal sinuses and the perforation of the nasal septum are likely similar. Procedure Note Kelechi Roy MD - 03/18/2024 PROCEDURE: CT TEMPORAL BONES WO CONTRAST, DATE/TIME OF EXAM: 03/17/2024 12:45 PM, LOCATION [facility] INDICATION: H74.43: Polyp of both middle ears ADDITIONAL CLINICAL INFORMATION: Ordering Provider Reason For Exam: Technologist Note: Additional: EXAMINATION: Computed tomography (CT) of the temporal bones without contrast TECHNIQUE: CT of the temporal bones was performed without contrast according to standard protocol. CT dose reduction technique was used, including Automated Exposure Control. COMPARISON: Comparison is made with a study from 06/20/2019. FINDINGS: The left auricle has a normal appearance. The left external auditorycanal is patent. There is some thickening and retraction of the left tympanic membrane. The left mastoid air cells are well-developed and clear. Theleft tegmen tympani is intact. The left ossicular chain appears intact. There are focal areas of soft tissue thickening in the left middle ear cavity. These are present in the hypotympanum, the round window niche andslightly Prussak's space lateral to the upper portion of the incus. The scutum appears preserved. The left cochlea, vestibule, and semicircular canals have a normal appearance. The vestibular aqueduct is normal in size. The left carotid and facial canals have a normal appearance. The leftinternal auditory canals normal in size. The right auricle has a normal appearance. The right external auditory canals patent. There is some mild thickening of the anterior wall of the right external auditory canal. There is likely thickening and retractionof the right tympanic membrane. The right mastoid air cells are well-developed. There is mild mucous membrane thickening/fluid in the inferior right mastoid air cells. The right tegmen tympani appearsintact. The right ossicular chain appears preserved. There is abnormal softtissue density in the inferior aspect of the right middle air cavity opacifying the oval and round window niches and portions of the sinus tympani and facial recess. The scutum appears preserved. The right cochlea and vestibule have a normal appearance as do the right semicircular canals.The right vestibular aqueduct is normal in size. The right carotid andfacial canals are normal. The right internal auditory canals normal in size. There is mucous membrane thickening in all the visualized paranasal sinuses. There is severe mucous membrane thickening in both frontalsinuses which are partially visualized as well as both ethmoid sinuses. There is moderate to severe mucous membrane thickening in the right maxillarysinus and moderate mucous membrane thickening in the left maxillary and both sphenoid sinuses. There is thickening of the plaza of all the paranasal sinuses consistent with chronic inflammation. There is somecalcification within the mucous membrane thickening in the maxillary sinuses which maybe seen in setting of inspissated secretions and/or fungal sinus disease.The right there are postoperative changes involving the paranasal sinuseswith resection of ethmoid air cells and portions of middle turbinates bilaterally and bilateral nasoantral windows. There is a perforation inthe upper portion of the nasal septum. When today's study is compared to previous temporal bone CT dated 2018, there is greater soft tissue density within the right middle ear cavity on today's study, the soft tissue density in the left middle ear cavity is new, and the thickening and retraction of the tympanicmembranes is likely similar. The mucous membrane thickening in the paranasalsinuses is overall greater on today's study with greater thickening of the wallsof the paranasal sinuses. Calcification of the mucous membrane thickeningin the maxillary sinuses. The postoperative changes involving the paranasal sinuses and the perforation of the nasal septum are likely similar. IMPRESSION: Soft tissue density within the right middle ear cavity, as detailedabove, there is greater than on previous examination. This may represent inflammatory/granulation tissue and/or cholesteatoma. Some soft tissue density within the inferior aspect of the left middleear cavity as detailed above. This is new relative previous study. This may reflect inflammatory/granulation tissue and/or cholesteatoma. Thickening and retraction of both tympanic membranes in keeping with chronic inflammation. Mild thickening of the anterior wall the right external auditory canal which may reflect some inflammatory change. Clinical correlation anddirect visualization are recommended. Mild mucous membrane thickening/fluid in the inferior right mastoid air cells. Mucous membrane thickening in all the visualized paranasal sinuses with thickening of the sinus plaza of chronic inflammation. Overall there is greater mucous membrane thickening in the paranasal sinuses that on the previous study. There is a calcification mucous membrane thickening inthe maxillary sinuses which may reflect inspissated secretions and/or fungal sinus disease. Clinical correlation recommended. Postoperative changes in the involving the paranasal sinuses that appear similar to previous study. Perforation of the nasal septum that appear similar to previous study. Clinical correlation recommended. The report is dictated by Gomez Kamara DO, (workforce development vice president) I, Kelechi Roy MD have personally reviewed and interpreted this examination/study. > Interpreting Provider: Kelechi Roy MD on 03/18/2024 1:45 PM [address] MD [address] ORDERABLES * AUDIOLOGY/TYMPANOMETRY ORDER (03/13/2024 1:26 PM CDT) Narrative Sara Patrick AuD - 03/13/2024 1:54 PM CDT History: Federico Lambert arrived for a hearing evaluation. Patient reports problems hearing AU, along with pain, drainage, dizziness and tinnitus in both ears. She has a known history of hearing loss in both ears. She has had ear surgery. She is unsure of changes in overall hearing ability. Results: Puretone air/bone conduction testing revealed a normal sloping to severe mixed hearing loss in the right ear and a normal sloping to severe rising to a moderately-severe SN hearing loss in the left ear. Speech understanding was good in the right ear and excellent in the left ear. When compared to the previous hearing test, today's results do indicate a decrease in hearing RT. Immittance measures revealed a Type As tympanogram in the right ear, indicating shallow middle ear function; excessive positive pressure noted. Results for the left ear revealed a Type A tympanogram, indicating normal middle ear function in that ear. These results were discussed in detail with the patient and all pertinent questions were answered. Recommendations: 1) ENT consult. 2) Hearing evaluation per medical recommendation, annually or if a change in hearing is suspected. 3) Amplification pending medical clearance/interest. Carol Calhoun. [facility]-A Clinical Carbonation Equipment Operator [facility]-Department of Otolaryngology/Audiology [facility] [address] [place] [address] Sara Medina AUDIOLOGY SERVICES O RDERABLES * (ABNORMAL) CULTURE SPUTUM+GRAM STAIN (02/21/2024 2:07 PM CDT) Only the most recent of22 resultswithin the time period is included. Culture Heavy Staphylococcus aureus(A) NICOLETTE 02/23/2024 12:02 PM CDT [facility] Comment:Staphylococcus aureu s methicillin-susceptible (MSSA) detected by penicillin binding protein immunoassay. Culture Moderate normal oropharyngeal brooks 02/23/2024 12:02 PM CDT [facility] MICROBIOLOG[facility] Gram Stain <10 per low power field Squamous epithelial cells 02/23/2024 12:02 PM CDT [facility] Gram Stain >= 25 per low power field Polymorphonuclear cells 02/23/2024 12:02 PM CDT [facility] Gram Stain Moderate Gram-positive cocci 02/23/2024 12:02 PM CDT [facility] Microbiology SPUTUM / Unknown Collection / Unknown 02/21/2024 2:07 PM CDT 02/21/2024 2:22 PM CDT Narrative Organism Antibiotic Method Susceptibility Staphylococcus aureus Cefazolin NICOLETTE Susceptible Staphylococcus aureus Clindamycin NICOLETTE 0.25 ug/mL: Resistant Staphylococcus aureus Doxycycline NICOLETTE <=0.5 ug/mL: Susceptible Staphylococcus aureus Inducible Clindamy jose c Resistance NICOLETTE POS ug/mL: Pos Staphylococcus aureus Oxacillin NICOLETTE 0.5 ug/mL: Susceptible Staphylococcus aureus Trimethoprim-sulfa methox azole NICOLETTE <=10 ug/mL: Susceptible Comment: This isolate is presumed to be resistant to clindamycin on the basis of detection of inducible clindamycin resistance. Staphylococcus sensitivity to oxacillin predicts susceptibility for nafcillin, ampicillin/sulbactam, amoxicillin/clavulanate, piperacillin/tazobactam, all cephalosporins (except ceftazidime, ceftazidime/avibactam, ceftolozane/tazobactam), and all carbapenems. Bonifacio Easton MD LAB - MICROBIOLOGY O RDERABLES [facility] [address] [facility] [address] [place] [phone] * [place] EAR MICROSCOPY EXAMINATION (02/21/2024 1:46 PM CDT) Narrative Edgar Piper MD - 02/21/2024 1:46 PM CDT Edgar Piper MD 02/21/2024 1:46 PM Procedure: Microscopic exam of the ear(s) with debridement of excessive cerumen under microscopic guidance Indications: Excessive cerumen in both ear canals Findings: See main note. Procedure in detail: The binocular operating microscope and and ear speculum were used to exam the ear(s). The patient tolerated the procedure well and there was no bleeding. Edgar Piper MD Edgar Piper MD PROCEDURE/MINOR VINITA GICAL ORDERABLES * TSH (01/31/2024 12:21 PM CDT) Only the most recent of4 resultswithin the time period is included. TSH 1.160 0.450 - 4.500 uIU/mL [facility] INSURANCE BILL Blood BLOOD SPECIMEN / Unknown 01/31/2024 12:21 PM CDT 01/31/2024 Narrative Resulting Agency Comment Lab Testing performed at: [facility] [address] [facility] [id number] Sonia Pratt DO LAB - CHEMISTRY MINESH [place] Performing Organization Address [facility] de Phone Number [facility] INSURANCE BILL [address] [place] [address] * T4 FREE (01/31/2024 12:21 PM CDT) Only the most recent of3 resultswithin the time period is included. T4 Free 0.89 0.82 - 1.77 ng/dL [facility] INSURANCE BILL Blood BLOOD SPECIMEN / Unknown 01/31/2024 12:21 PM CDT 01/31/2024 Narrative Resulting Agency Comment Lab Testing performed at: [facility] [address] [phone] Sonia Pratt DO LAB - CHEMISTRY MINESH HAMIL[place] Performing Organization Address [facility] de Phone Number [id number] INSURANCE BILL [address] [place] [address] * T3 TOTAL (01/31/2024 12:21 PM CDT) T3 Total 135 71 - 180 ng/dL [facility] INSURANCE BILL Blood BLOOD SPECIMEN / Unknown 01/31/2024 12:21 PM CDT 01/31/2024 Narrative Resulting Agency Comment Lab Testing performed at: [facility] [address] [facility] [phone] Sonia Pratt DO LAB - CHEMISTRY MINESH [place] Performing Organization Address [facility] de Phone Number [id number] INSURANCE BILL [address] [place] [address] * MN ENDO NASAL SINUS BX POLYP DEBRID COREY (11/21/2023 1:39 PM TOOL CRIB LEAD) Narrative Gerardo Angeles MD - 11/21/2023 1:39 PM TOOL CRIB LEAD Tank Light MD 11/21/2023 2:15 PM Procedure: Nasal Endoscopy With Debridement Anesthesia: Bilateral Nasal Cavity sprayed with Lidocaine and Phenylephrine Detail: Rigid nasal endoscopy was performed in bilateral nasal cavity. Removed crusting and thick secretions with suctions. Was then able to visualize widely patent nasal cavities bilaterally. We suctioned out the bilateral sphenoid sinuses. Good postoperative appearance. Gerardo Angeles MD PROCEDURE/MINOR VINITA GICAL ORDERABLES * FLOW CYTOMETRY [facility] MEDIUM PANEL (08/21/2023 11:10 AM CDT) Reason for test CVID (common variable immunodeficiency) ([facility]) 279.06 08/21/2023 3:42 PM CDT [facility] Client Specimen ID # [id number] 08/21/2023 3:42 PM T [facility] Number of Markers 9 08/21/2023 3:42 PM T [facility] Flow Cytometry Results Differential Result Comment WBC Count /uL 9,000 % Lymphocytes 39 Lymphocyte Count u/L 3,510 08/21/2023 3:42 PM CDT [facility] Flow Cytometry Results (Continued) Cell Region A: Lymphocytes Dual Labeled Results Results % Absolute Count (cells/uL) CD3 78 2,738 CD3+CD4+ 55 1,931 CD3+CD8+ 20 702 CD4:CD8 Ratio 2.75 CD19 9 316 CD27 46 1,615 CD56 10 351 sIgD 9 316 %CD4 & CD45RO 50 965 %CD4 &CD45RA 50 965 %CD27 & CD19 1 16 %CD19 & CD27 5 16 %CD19 & CD27 + IgD+ 0 0 %CD19 & CD27 + IgD- 3 9 %CD19 & CD27 - IgD+ 98 310 08/21/2023 3:42 PM T [facility] Flow Cytometry Interpretation Testing is technical only and does not require an interpretation of results. 08/21/2023 3:42 PM T [facility] Reference Range Adult Normal Reference Range Adult (> 18 years) CD3 54-84 % CD4 33-63 % CD8 12-39 % CD19 5-19 % CD56 6-26 % CD4+CD45RA+ 30-50 % CD4+CD45RO+ 17-42 % CD19+CD27+ 7-48 % CD19+CD27+IgD+ 7-29 % CD19+CD27+IgD- 3-23 % CD19+XZ53-NtE+ 29-93 % % 08/21/2023 3:42 PM CDT [facility] Disclaimer Test performed at [facility], [address], [place], [address]. This test was developed and its performance characteristics determined by the Flow Cytometry Laboratory. It has not been cleared by the [place] Food and Drug Administration (FDA). The FDA has determined that such clearance or approval is not necessary. This test is used for clinical purposes. It should not be regarded as investigational or for research. This laboratory is regulated under the Clinical Laboratory Improvement Amendments of 1998 (CLIA) as a qualified to perform high complexity clinical testing. By law [place], CD4 lymphocyte counts on patients with HIV infection must be reported by the physician to the [facility] Health authority. 08/21/2023 3:42 PM CDT [facility] Embedded Images 3:42 PM CDT [facility] Blood BLOOD SPECIMEN / Unknown Lab Venipuncture / Unknown 08/21/2023 11:10 AM CDT 08/21/2023 11:38 AM CDT Stanley Quezada MD LAB - PATHOLOGY/CYTO LOGY ORDERABLES [facility] [address] [place] [address]. [address] [phone] * XR CHEST 2VW INSPIR EXPIRATION (05/25/2023 9:56 AM CDT) Anatomical Region Laterality Modality Chest Radiographic Colette ging 05/25/2023 10:3 3 AM CDT Impressions 05/25/2023 11:21 AM CDT IMPRESSION: Mild basilar atelectasis, otherwise no acute pulmonary process. Report dictated by Dawood Brown MD (workforce development vice president). I, Jeannie Priest MD have personally reviewed and interpreted this examination/study. > Interpreting Provider: Jeannie Priest MD on 05/25/2023 11:21 AM Narrative 05/25/2023 11:21 AM CDT PROCEDURE: XR CHEST 2VW INSPIR EXPIRATION DATE/TIME OF EXAM: 05/25/2023 9:56 AM Indication: J95.811: Postprocedural pneumothorax Additional History: Shortness of breath COMPARISON: AP chest x-ray from 05/19/2023 FINDINGS: Left subclavian approach venous access port is seen overlying the left mid chest, its tip is in the superior vena cava. Minimally changed in position from prior. Surgical clips are noted in the right upper abdomen. There is no focal consolidation, pleural effusion, or pneumothorax. Some linear atelectasis is present in the lung bases. The cardiomediastinal silhouette is normal. The visible bony thorax is intact. Procedure Note Jeannie Priest MD - 05/25/2023 PROCEDURE: XR CHEST 2VW INSPIR EXPIRATION DATE/TIME OF EXAM: 05/25/2023 9:56 AM Indication: J95.811: Postprocedural pneumothorax Additional History: Shortness of breath COMPARISON: AP chest x-ray from 05/19/2023 FINDINGS: Left subclavian approach venous access port is seen overlying the leftmid chest, its tip is in the superior vena cava. Minimally changed inposition from prior. Surgical clips are noted in the right upper abdomen. There is no focal consolidation, pleural effusion, or pneumothorax. Some linear atelectasis is present in the lung bases. The cardiomediastinal silhouette is normal. The visible bony thorax is intact. IMPRESSION: Mild basilar atelectasis, otherwise no acute pulmonary process. Report dictated by Dawood Brown MD (workforce development vice president). I, Jeannie Priest MD have personally reviewed and interpreted this examination/study. > Interpreting Provider: Jeannie Priest MD on 05/25/2023 11:21 AM Stanley Quezada MD DIAGNOSTIC IMAGING O RDERABLES * XR CHEST 1VW PORTABLE (05/19/2023 5:55 PM CDT) Only the most recent of10 resultswithin the time period is included. Anatomical Region Laterality Modality Chest Radiographic Colette ging 05/20/2023 8:51 AM CDT Narrative 05/20/2023 7:57 PM CDT PROCEDURE: XR CHEST 1VW PORTABLE, DATE/TIME OF EXAM: 05/19/2023 5:55 PM, LOCATION [facility] INDICATION: R07.81: Pleuritic chest pain ADDITIONAL CLINICAL INFORMATION: Ordering Provider Reason For Exam: recent left pneumothorax, chest tube removed COMPARISON: Chest radiograph 05/19/2023 4:47 AM FINDINGS/IMPRESSION: Lines, tubes, hardware: *Chemotherapy port in the left upper chest wall, tip is in the superior cavoatrial junction. *Interval removal of the left sided pigtail chest tube. Triangular opacity overlying the left mid mediastinum corresponding to partial collapse seen on CT chest from 05/18/2023. No pneumothorax is visible. The cardiomediastinal silhouette is normal. The visible bony thorax is intact. Report dictated by Adelaida Powell MD, MD (workforce development vice president). Chris Webb have personally reviewed and interpreted this examination/study. > Interpreting Provider: Chris Cantu on 05/20/2023 7:57 PM Procedure Note Chris Cantu MD - 05/20/2023 PROCEDURE: XR CHEST 1VW PORTABLE, DATE/TIME OF EXAM: 05/19/2023 5:55PM, LOCATION [facility] INDICATION: R07.81: Pleuritic chest pain ADDITIONAL CLINICAL INFORMATION: Ordering Provider Reason For Exam: recent left pneumothorax, chest tube removed COMPARISON: Chest radiograph 05/19/2023 4:47 AM FINDINGS/IMPRESSION: Lines, tubes, hardware: *Chemotherapy port in the left upper chest wall, tip is in the superior cavoatrial junction. *Interval removal of the left sided pigtail chest tube. Triangular opacity overlying the left mid mediastinum corresponding to partial collapse seen on CT chest from 05/18/2023. No pneumothorax is visible. The cardiomediastinal silhouette is normal. The visible bony thorax is intact. Report dictated by Adelaida Powell MD, MD (workforce development vice president). Chris Webb have personally reviewed and interpreted this examination/study. > Interpreting Provider: Chris Cantu on 05/20/2023 7:57 PM Stanley Sanderson MD DIAGNOSTIC IMAGING O RDERABLES * (ABNORMAL) CBC W/O DIFFERENTIAL (05/19/2023 3:33 AM CDT) Only the most recent of11 resultswithin the time period is included. Pathologist [facility] WBC 8.5 3.5 - 10.5 10 3/uL 05/19/2023 5:03 AM [facility] RBC 4.03 3.80 - 5.20 10 6/uL 05/19/2023 5:03 AM [facility] Hemoglobin 11.8(L) 12.0 - 15.6 g/dL 05/19/2023 5:03 AM [facility] Hematocrit 35.6 35.0 - 45.0 % 05/19/2023 5:03 AM [facility] MCV 88.3 80.7 - 98.3 fL 05/19/2023 5:03 AM [facility] MCH 29.3 26.7 - 34.0 pg 05/19/2023 5:03 AM [facility] MCHC 33.1 30.8 - 35.9 g/dL 05/19/2023 5:03 AM [facility] RDW-SD 47.5 36.0 - 50.0 fL 05/19/2023 5:03 AM [facility] RDW-CV 14.7 11.2 - 14.8 % 05/19/2023 5:03 AM [facility] Platelet Count 366 150 - 400 10 3/uL 05/19/2023 5:03 AM [facility] MPV 9.5 9.4 - 12.9 fL 05/19/2023 5:03 AM [facility] nRBC Absolute 0.00 0 10 3/uL 05/19/2023 5:03 AM [facility] nRBC Auto 0.0 0 /100 WBC 05/19/2023 5:03 AM [facility] Blood BLOOD SPECIMEN / Unknown Lab Venipuncture / Unknown 05/19/2023 3:33 AM CDT 05/19/2023 4:50 AM [facility] Roxann Bailey MD LAB - HEMATOLOGY OR DERABLES [facility] [address] [place] [address], [facility] [phone] * (ABNORMAL) BASIC METABOLIC PANEL (CALCIUM TOTAL) (05/19/2023 3:33 AM CDT) Only the most recent of70 resultswithin the time period is included. BUN 12 7 - 26 mg/dL 05/19/2023 5:22 AM [facility] Creatinine 0.77 0.56 - 0.96 mg/dL 05/19/2023 5:22 AM [facility] Sodium 134(L) 136 - 145 mmol/L 05/19/2023 5:22 AM [facility] Potassium 3.4(L) 3.5 - 4.5 mmol/L 05/19/2023 5:22 AM [facility] Chloride 102 98 - 107 mmol/L 05/19/2023 5:22 AM [facility] CO2 22 22 - 29 mmol/L 05/19/2023 5:22 AM [facility] Glucose 97 70 - 115 mg/dL 05/19/2023 5:22 AM [facility] Calcium 9.3 8.4 - 10.2 mg/dL 05/19/2023 5:22 AM [facility] Anion Gap 13 8 - 18 05/19/2023 5:22 AM [facility] BUN/Creatinine Ratio 16 7 - 23 05/19/2023 5:22 AM [facility] Osmolality Calculated 278 270 - 300 mOsm/kg 05/19/2023 5:22 AM [facility] eGFR by CKD-EPI >90 >=90 mL/min/1.7 3 m2 05/19/2023 5:22 AM [facility] Blood BLOOD SPECIMEN / Unknown Lab Venipuncture / Unknown 05/19/2023 3:33 AM CDT 05/19/2023 4:49 AM CDT Roxann Bailey MD LAB - CHEMISTRY ORD ERABLES [facility] [address] [place] [address], [facility] [phone] * TYPE + SCREEN PANEL (05/18/2023 12:02 PM CDT) Only the most recent of4 resultswithin the time period is included. Antibody Screen NEG 3 1:20 PM CDT [facility] ABO Rh B POS 05/18/2023 1:20 PM CDT [facility] Blood Bank BLOOD SPECIMEN / Unknown Venipuncture / Unknown 05/18/2023 12:02 PM CDT 05/18/2023 12:15 PM CDT Moe Asif MD LAB - BLOOD BANK ORD ERABLES [facility] [address] [place] [address], [facility] [phone] * CT CHEST WO CONTRAST (05/18/2023 9:53 AM CDT) Only the most recent of2 resultswithin the time period is included. Anatomical Region Laterality Modality Chest Computed Tomogra phy 05/18/2023 9:54 AM CDT Impressions 05/18/2023 10:14 AM CDT Impression 1. Moderate-sized left-sided pneumothorax with no associated midline shift. 2. Trace left pleural effusion with associated segmental atelectasis left lower lobe. These findings were discussed in detail with the patient's care provider, Ms. Lazaro, ED Charge Nurse by Dr. Topete via telephone at 10:08 AM on 05/18/2023 with readback comprehension and verification. > Dictated by Alyse Topete M.D. (workforce development vice president). I, Tereso Winters MD have personally reviewed and interpreted this examination/study. > Interpreting Provider: Tereso Winters MD on 05/18/2023 10:14 AM Narrative 05/18/2023 10:14 AM CDT Procedure Information DATE: 05/18/2023 9:53 AM EXAMINATION: Computed tomography (CT) of the chest without contrast TECHNIQUE: CT of the chest was performed without contrast according to standard protocol. Clinical Information HISTORY: R91.1: Lung nodule J47.9: Bronchiectasis without complication (CMS/HCC) D83.9: CVID (common variable immunodeficiency) (CMS/HCC) J44.9: Chronic obstructive pulmonary disease, unspecified COPD type (CMS/HCC) J45.998: Persistent asthma with undetermined severity COMPARISON: CT chest without contrast and high risk dated 01/18/2023. Findings Evaluation of visceral and vascular structures is degraded due to lack of intravenous contrast administration. Lines: Left internal jugular approach Port-A-Cath terminates in the superior vena cava. Lower neck and axilla: Normal Lungs: There is a moderate left pneumothorax with no associated midline shift. There is a trace left pleural effusion with associated atelectasis. No right pleural effusion or pneumothorax. Heart and Pericardium: The cardiac chambers are normal in size. No pericardial fluid or thickening is present. Mediastinum and Gogo: No mediastinal mass is present. No enlarged lymph nodes are present. Thoracic Vessels: No vascular abnormality is present. Bones and Chest Wall: Bone windows demonstrate no suspicious lytic or blastic lesions. The visible osseous structures are intact. Upper Abdomen: The gallbladder surgically absent with cholecystectomy clips in place. Otherwise, the remaining visible upper abdominal viscera is normal. Procedure Note Tereso Winters MD - 05/18/2023 Procedure Information DATE: 05/18/2023 9:53 AM EXAMINATION: Computed tomography (CT) of the chest without contrast TECHNIQUE: CT of the chest was performed without contrast according to standard protocol. Clinical Information HISTORY: R91.1: Lung nodule J47.9: Bronchiectasis without complication (CMS/HCC) D83.9: CVID (common variable immunodeficiency) (CMS/HCC) J44.9: Chronic obstructive pulmonary disease, unspecified COPD type (CMS/HCC) J45.998: Persistent asthma with undetermined severity COMPARISON: CT chest without contrast and high risk dated 01/18/2023. Findings Evaluation of visceral and vascular structures is degraded due to lackof intravenous contrast administration. Lines: Left internal jugular approach Port-A-Cath terminates in the superiorvena cava. Lower neck and axilla: Normal Lungs: There is a moderate left pneumothorax with no associated midline shift. There is a trace left pleural effusion with associated atelectasis. No right pleural effusion or pneumothorax. Heart and Pericardium: The cardiac chambers are normal in size. No pericardial fluid orthickening is present. Mediastinum and Gogo: No mediastinal mass is present. No enlarged lymph nodes are present. Thoracic Vessels: No vascular abnormality is present. Bones and Chest Wall: Bone windows demonstrate no suspicious lytic or blastic lesions. The visible osseous structures are intact. Upper Abdomen: The gallbladder surgically absent with cholecystectomy clips in place. Otherwise, the remaining visible upper abdominal viscera is normal. Impression 1. Moderate-sized left-sided pneumothorax with no associated midlineshift. 2. Trace left pleural effusion with associated segmental atelectasisleft lower lobe. These findings were discussed in detail with the patient's careprovider, Ms. Lazaro, ED Charge Nurse by Dr. Topete via telephone at 10:08 AM on 05/18/2023 with readback comprehension and verification. > Dictated by Alyse Topete M.D. (workforce development vice president). I, Tereso Winters MD have personally reviewed and interpreted this examination/study. > Interpreting Provider: Tereso Winters MD on 310:14 AM Bonifacio Easton MD CT ORDERABLES * QUANTIFERON TB-GOLD (04/24/2023 10:14 AM CDT) QuantiFERON Incubation Incubation performed. [facility] INSURANCE BILL QuantiFERON Criteria [facility] INSURANCE BILL Comment: QuantiFERON-TB Gold Plus is a qualitative indirect test for M tuberculosis infection (including disease) and is intended for use in conjunction with risk assessment, radiography, and other medical and diagnostic evaluations. The QuantiFERON-TB Gold Plus result is determined by subtracting the Nil value from either TB antigen (Ag) value. The Mitogen tube serves as a control for the test. QuantiFERON TB1 Ag Value 0.03 IU/mL [facility] INSURANCE BILL QuantiFERON TB2 Ag Value 0.02 IU/mL [facility] INSURANCE BILL QuantiFERON Nil Value 0.02 IU/mL [facility] INSURANCE BILL QuantiFERON Mitogen Value >10.00 IU/mL [facility] INSURANCE BILL QuantiFERON-TB Gold Plus Negative Negative [facility] INSURANCE BILL Comment: No response to M tuberculosis antigens detected. Infection with M tuberculosis is unlikely, but high risk individuals should be considered for additional testing (ATS/IDSA/CDC Clinical Practice Guidelines, 2017). The reference range is an Antigen minus Nil result of <0.35 IU/mL. Chemiluminescence immunoassay methodology 04/24/2023 10:1 4 AM CDT 04/24/2023 Narrative Resulting Agency Comment Lab Testing performed at: [facility] [employer] [address] [place] [phone] Bonifacio Easton MD LAB - CHEMISTRY MINESH HAMILTON Performing Organization Address City/[facility]/ZIP Co de Phone Number [facility] INSURANCE BILL [address] [place] [address] * THEOPHYLLINE LEVEL (02/08/2023 12:00 AM CDT) Only the most recent of15 resultswithin the time period is included. Theophylline 10.0 10.0 - 20.0 ug/mL [facility] INSURANCE BILL Comment: Detection Limit = 0.8 <0.8 indicates None Detected 02/08/2023 02/08/2023 Narrative Resulting Agency Comment Lab Testing performed at: [facility] [employer] [address] [facility] [place] [phone] Bonifacio Easton MD LAB - CHEMISTRY MINESH HAMILTON Performing Organization Address [facility] Co de Phone Number [facility] INSURANCE BILL [address] [place] [address] * IGG BLOOD (02/08/2023 12:00 AM CDT) Only the most recent of12 resultswithin the time period is included. IgG Quantitative 1,318 586 - 1,602 mg/dL [facility] INSURANCE BILL 02/08/2023 02/08/2023 Narrative Resulting Agency Comment Lab Testing performed at: [facility] [employer] [address] [facility] [place] [phone] Bonifacio Easton MD LAB - CHEMISTRY MINESH HAMILTON Performing Organization Address City/[facility]/ZIP Co de Phone Number [facility] INSURANCE BILL [address] [place] [address] * FRACTIONAL EXHALED NITRIC OXIDE (11/01/2022 4:33 PM TOOL CRIB LEAD) Impressions Elvis Avilez MD - 11/01/2022 4:33 PM TOOL CRIB LEAD [facility] DEPARTMENT OF PULMONARY, CRITICAL CARE, AND SLEEP MEDICINE EXHALED NITRIC OXIDE (FeNO) Federico D Petra 11/03/2022 INTERPRETATION The measurement of fractional exhaled nitric oxide (FENO) was 16 ppb. IMPRESSION: 1. Normal fractional exhaled nitric oxide. 2. Last FENO on 12/09/2019 was 10.0 Alberto Orozco MD Pulmonary & Critical Care Fellow, PGY4 Division of Pulmonary, Critical Care and Sleep Medicine [facility] I have reviewed this study and agree with the interpretation by the Weed Sprayer. Elvis Avilez M.D. Skiff Operator of Internal Medicine Division of Pulmonary, Critical Care and Sleep Medicine [facility] Narrative Elvis Avilez MD - 11/01/2022 4:33 PM TOOL CRIB LEAD Alberto Orozco MD 11/03/2022 7:58 AM Bonifacio Easton MD RESPIRATORY THERAPY ORDERABLES * COMPLETE PFT (11/01/2022 4:27 PM TOOL CRIB LEAD) Impressions Elvis Avilez MD - 11/01/2022 4:27 PM TOOL CRIB LEAD [facility] DEPARTMENT OF PULMONARY, CRITICAL CARE, AND SLEEP MEDICINE PULMONARY FUNCTION TEST Please see technologist's comments mentioned in the report. INTERPRETATION: SPIROMETRY: FVC: Normal FEV1: Decreased FEV1/FVC ratio is Decreased BRONCHODILATOR RESPONSE: There is no significant response to bronchodilator therapy FLOW-VOLUME LOOPS: There is scooping of the expiratory limbs LUNG VOLUMES: Lung volumes by body plethysmography show increased total lung capacity and residual volume DLCO: Unadjusted for Hb and COHb is normal DLCO: Corrected for Hb and COHb is: not performed AIRWAY RESISTANCE: The airway resistance is INCREASED and the specific conductance is DECREASED IMPRESSION: Moderate Obstructive Ventilatory Limitation There is evidence of mild air trapping and hyperinflation Normal diffusion by DLCO No significant bronchodilator response, however this does not preclude the use of bronchodilators Compared with previous study on 12/09/19, there has been no significant change in FVC, FEV1, or DLCO, and an interval decrease in TLC of 430ml, Alberto Orozco MD Pulmonary & Critical Care Fellow, PGY5 Division of Pulmonary, Critical Care and Sleep Medicine [facility] I have reviewed this study and agree with the interpretation by the Weed Sprayer. Elvis Avilez M.D. Skiff Operator of Internal Medicine Division of Pulmonary, Critical Care and Sleep Medicine [facility] Narrative Elvis Avilez MD - 11/01/2022 4:27 PM TOOL CRIB LEAD Alberto Orozco MD 11/03/2022 7:58 AM Bonifacio Easton MD RESPIRATORY THERAPY ORDERABLES * MN EAR MICROSCOPY EXAMINATION (07/06/2022 2:03 PM CDT) Narrative Edgar Piper MD - 07/06/2022 2:03 PM CDT Edgar Piper MD 07/06/2022 2:03 PM Procedure: Microscopic exam of the ear(s) Findings: See main note. Procedure in detail: The binocular operating microscope and and ear speculum were used to exam the ear(s). The patient tolerated the procedure well and there was no bleeding. Edgar Piper MD Edgar Piper MD PROCEDURE/MINOR VINITA GICAL ORDERABLES * MN ENDO NASAL SINUS BX POLYP DEBRID COREY (06/21/2022 3:24 PM CDT) Gerardo Rudolph MD - 06/21/2022 3:24 PM CDT Gerardo Angeles MD 06/21/2022 3:29 PM Procedure: Nasal Endoscopy With Debridement Anesthesia: Bilateral Nasal Cavity sprayed with Lidocaine and Phenylephrine Detail: Rigid nasal endoscopy was performed in bilateral nasal cavity. Removed crusting and thick secretions with suctions. Was then able to visualize widely patent nasal cavities bilaterally. I suctioned out the right maxillary sinus and right sphenoid sinus as well as bilaterally into the frontal outflow in the left skull base. Good early postoperative appearance. Gerardo Angeles MD PROCEDURE/MINOR VINITA GICAL ORDERABLES * CULTURE FUNGUS OTHER+FUNGUS SMEAR (06/08/2022 11:59 AM CDT) Only the most recent of15 resultswithin the time period is included. Culture No fungus isolated NICOLETTE 07/02/2022 3:23 PM CDT [facility] Fungus Stain No yeast or hyphae seen 07/02/2022 3:23 PM CDT [facility] Microbiology POLYP / Unknown Collection / Unknown 06/08/2022 11:59 AM CDT 06/08/2022 12:36 PM CDT Edgar Piper MD LAB - MICROBIOLOGY ORDERABLES [facility] [address] [place] [address], [facility] [phone] * (ABNORMAL) CULTURE TISSUE+GRAM STAIN (06/08/2022 11:59 AM CDT) Only the most recent of5 resultswithin the time period is included. Culture Light Streptococcus agalactiae (Group B)(AA) 06/12/2022 8:11 AM CDT [facility] Culture Rare Streptococcus mitis/oralis(AA) 06/12/2022 8:11 AM CDT [facility] Comment:No further workup pe rformed Culture Light Staphylococcus aureus(AA) NICOLETTE 06/12/2022 8:11 AM CDT [facility] Comment:Staphylococcus aureu s methicillin-susceptible (MSSA) detected by penicillin binding protein immunoassay. Culture Rare Staphylococcus pettenkoferi(AA) 06/12/2022 8:11 AM T [facility] Comment:No further workup pe rformed Gram Stain Light Red blood cells 06/12/2022 8:11 AM CDT [facility] Gram Stain Light Polymorphonuclear cells 06/12/2022 8:11 AM CDT [facility] Gram Stain No organisms seen 022 8:11 AM CDT [facility] Microbiology POLYP / Unknown Collection / Unknown 06/08/2022 11:59 AM CDT 06/08/2022 12:36 PM CDT Narrative [facility] - 06/12/2022 8:11 AM CDT Susceptibility testing of penicillin, other beta-lactam antibiotics, and vancomycin is not necessary for beta-hemolytic streptococci groups A,B,C and G because resistant strains have not been recognized. Organism Antibiotic Method Susceptibility Staphylococcus aureus Clindamycin NICOLETTE >=4 ug/mL: Resistant Staphylococcus aureus Doxycycline NICOLETTE <=0.5 ug/mL: Susceptible Staphylococcus aureus Gentamicin NICOLETTE <=0.5 ug/mL: Susceptible Staphylococcus aureus Inducible Clindamy jose c Resistance NICOLETTE NEG ug/mL: Neg Staphylococcus aureus Linezolid NICOLETTE 2 ug/mL: Susceptible Staphylococcus aureus Oxacillin NICOLETTE 0.5 ug/mL: Susceptible Staphylococcus aureus Tetracycline NICOLETTE <=1 ug/mL: Susceptible Staphylococcus aureus Trimethoprim-sulfa methoxa zole NICOLETTE <=10 ug/mL: Susceptible Staphylococcus aureus Vancomycin NICOLETTE 1 ug/mL: Susceptible Comment: Staphylococcus sensitivity to oxacillin predicts susceptibility for nafcillin, ampicillin/sulbactam, amoxicillin/clavulanate, piperacillin/tazobactam, all cephalosporins (except ceftazidime, ceftazidime/avibactam, ceftolozane/tazobactam), and all carbapenems. Edgar Piper MD LAB - MICROBIOLOGY ORDERABLES Performing Organization Address City/[facility] Co de Phone Number [facility] [address] [place] [address], [facility] [phone] * (ABNORMAL) CULTURE ANAEROBE (06/08/2022 11:59 AM CDT) Only the most recent of7 resultswithin the time period is included. Culture Moderate Prevotella bergensis(A) NICOLETTE 06/14/2022 8:31 AM CDT [facility] Comment:Beta-lactamase posit mario Microbiology POLYP / Unknown Collection / Unknown 06/08/2022 11:59 AM CDT 06/08/2022 12:36 PM CDT Edgar Piper MD LAB - MICROBIOLOGY ORDERABLES Performing Organization Address City/[facility] Co de Phone Number [facility] [address] [place] [address], [facility] [phone] * PATHOLOGY TISSUE (06/08/2022 11:35 AM CDT) Only the most recent of8 resultswithin the time period is included. Case Report Surgical Pathology Report Case: [id number] Authorizing Provider: Edgar Piper MD Collected: 06/08/2022 11:35 AM Ordering Location: [facility] Received: 06/08/2022 01:03 PM Pathologist: Flores Oden MD Specimen: Sinus, sinus contents 06/14/2022 4:43 PM [facility] Final Diagnosis Paranasal sinus, contents, excision (A): - Allergic sinusitis 06/14/2022 4:43 PM [facility] Microscopic Description and Comment Sections show allergic mucin with eosinophil debris and Charcot-Leyden crystals. No fungi are noted. The mucosa has chronic inflammation and sclerosis. There are approximately 80 eosinophils per high power field of mucosa. 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 06/14/2022 4:43 PM [facility] Gross Description The requisition and specimen label(s) are identified with the patient's name, Federico Lambert. Received in formalin, specimen A , is a 2.0 x 2.0 x 0.4 cm aggregate of winkler-pink soft tissue submitted in toto in A1.SP 06/14/2022 4:43 PM [facility] Disclaimer The performance characteristics of all immunohistochemical and indirect immunofluorescence stains (if any) cited in this report were determined by the Histopathology Laboratory of [facility]. Some of these tests were developed by our own laboratory and have not been cleared or approved by the US Food and Drug Administration. The FDA does not require this test to go through premarket FDA review. These tests are used for clinical purposes. They should not be regarded as investigational or for research. This laboratory is certified under the Clinical Laboratory Improvement Amendments (CLIA) as qualified to perform high complexity clinical laboratory testing. This case has been personally reviewed and interpreted by the attending (teaching) pathologist. 06/14/2022 4:43 PM [facility] Embedded Images 06/14/2022 4:43 PM [facility] Biopsy, Excision SINUS / Unknown 06/08/20 11:35 AM CDT 06/08/2022 1:03 PM CDT Comment:Pre-op diagnosis: SAMTER'S TRIAD,CHRONIC PANSINUSITIS, RIGHT TYMPANIC MEMBRANE PERFORMATION,DYSFUNCTION BOTH EUSTACHIAN TUBES,POLYP BOTH MIDDLE EARS Edgar Piper MD LAB - PATHOLOGY/CYT OLOGY ORDERABLES [facility] [address], [place] [address] [phone] * ETT LINE PERFORMABLE (06/08/2022 10:14 AM CDT) Narrative Lakeisha Lockhart Anes Asst - 06/08/2022 10:14 AM CDT Lakeisha Lockhart Anes Asst 06/08/2022 10:16 AM Endotracheal Tube Placement: Patient Location: OR. Intubation Event Date/Time: 06/08/2022 9:51 AM Procedure: intubation (35687). Procedure Section: Induction: standard IV Patient Position: sniffing Mask Ventilation: easy. Blade Type: Bowie Blade Size: 2 Laryngoscopy View: grade 1 (full cords) Tube: LUZ tube Placement: oral Tube type: cuff - inflated Tube Size (MM): 7 Depth of Insertion (CM): 21 Measured From: lips Cuff Inflated With: air Number of Attempts: 2 (First attempt by medical student unsuccess, send attempt by QS uneventfully.). Placement Verified By: direct visualization, bilateral breath sounds, CO2 detector and CO2 monitor CXR Findings: ETT in proper place. Tube secured with: adhesive tape. Dentition unchanged? Yes Difficult Airway? No. Procedure Start Time: 06/08/2022 9:51 AM. Staff Section Anesthesia Provider: Lakeisha Lockhart Anes Asst, Performed the procedure Carl Davis MD GENERAL ANESTHESIA O RDERABLES * AUDIOLOGY/TYMPANOMETRY ORDER (02/23/2022 2:20 PM CDT) Narrative Sara Patrick AuD - 02/23/2022 2:45 PM CDT History: Federico Lambert arrived for a hearing evaluation. Patient reports issues with hearing loss, tinnitus, and otalgia. History of mixed hearing loss. She denies dizziness and ototoxicity. There is not a history of noise exposure. There is not a family history of hearing loss. There is a history of surgery on either ear(s). Results: Puretone air/bone conduction testing revealed a normal sloping to moderately severe mixed hearing loss in the right ear and a normal sloping to severe rising to a moderately-severe hearing loss with a conductive component at 4000 Hz in the left ear. Speech understanding was excellent in the right ear and excellent in the left ear. When compared to the previous hearing test, today's results do indicate a change in hearing - increase bilaterally from 250-500 Hz. Immittance measures revealed a Type A tympanogram in the right ear, indicating normal middle ear function. Results for the left ear revealed a Type A tympanogram, indicating normal middle ear function in that ear. These results were discussed in detail with the patient and all pertinent questions were answered. Recommendations: 1) ENT consult. 2) Hearing evaluation annually or if a change in hearing is suspected. 3) Amplification pending medical clearance/interest. Carol Calhoun. [facility] Clinical Carbonation Equipment Operator Ignacio-Department of Otolaryngology/Audiology [facility] [address] [place] [address] Sara Medina AUDIOLOGY SERVICES O RDERABLES * MN ENDO NASAL SINUS BX POLYP DEBRID RT SIDE (02/01/2022 5:27 PM CDT) Narrative Gerardo Angeles MD - 02/01/2022 5:27 PM CDT Shirlene Brooks MD 02/02/2022 9:52 AM Procedure: Rigid Nasal Endoscopy with Debridement Anesthesia: Bilateral Nasal Cavities sprayed with lidocaine and Neosynephrine Detail: Rigid nasal endoscopy performed bilaterally. Septum was midline. Bilaterally there has been extensive sinus surgery with a Lothrop procedure. All sinuses continue to be open. On the left the maxillary, sphenoid, and ethmoid are open with no significant edema or debris. There was significant amount of very thick allergic mucin from the right sphenoid and maxillary sinuses which could only be partially removed with suction. Interval development of polyposis in the right nasal cavity anteriorly which appears to be extending along the nasal floor. Dr. Angeles performed this procedure. Gerardo Angeles MD PROCEDURE/MINOR VINITA GICAL ORDERABLES * MN EAR MICROSCOPY EXAMINATION (02/01/2022 5:24 PM CDT) Narrative Gerardo Angeles MD - 02/01/2022 5:24 PM CDT Shirlene Brooks MD 02/02/2022 9:52 AM PROCEDURE NOTE Procedure: Microscopy Examination Indication: Tympanic membrane perforations Procedure Note: Verbal consent for the procedure was obtained. Patient was placed under the ear microscope and bilateral ears examined. Bilateral TM perforations (moderate size on the right and very small on the left) seen with overlying granulation tissue. Scant otorrhea bilaterally which was suctioned. Dr. Angeles performed this procedure. Gerardo Angeles MD PROCEDURE/MINOR VINITA GICAL ORDERABLES * XR CHEST 2VW (02/01/2022 3:18 PM CDT) Only the most recent of9 resultswithin the time period is included. Anatomical Region Laterality Modality Chest Radiographic Colette ging 02/01/2022 4:07 PM CDT Impressions 02/01/2022 4:29 PM CDT FINDINGS/IMPRESSION: The right internal jugular approach central venous port catheter tip terminates in the superior vena cava. Grossly unchanged bibasilar atelectasis. No focal consolidation, pleural effusion, or pneumothorax is seen. The cardiomediastinal silhouette is normal. No acute fractures are seen. Report drafted by Janusz Valderrama MD (workforce development vice president) I, Dr. QUINCY BACH have personally reviewed and interpreted this examination/study. This report was electronically signed by QUINCY BACH on 02/01/2022 4:29 PM . 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 Grossly unchanged bibasilar atelectasis. No focal consolidation, pleural effusion, or pneumothorax is seen. The cardiomediastinal silhouette is normal. No acute fractures are seen. Report drafted by Januzs Valderrama MD (workforce development vice president) IDr. QUINCY have personally reviewed and interpreted this examination/study. This report was electronically signed by QUINCY BACH on 02/01/2022 4:29 PM. Gerardo Angeles MD DIAGNOSTIC IMAGING ORDERABLES * IMMUNOSCORE IGE INTERP (12/07/2021 1:38 PM TOOL CRIB LEAD) Only the most recent of2 resultswithin the time period is included. Immunocap Score See Note 3:10 PM TOOL CRIB LEAD [employer] ([facility]) Comment: REFERENCE INTERVAL: Allergen, Interpretation Less than 0.10 kU/L......Class 0.....No significant level detected 0.10-0.34 kU/L...........Class 0/1...Clinical relevance undetermined 0.35-0.70 kU/L...........Class 1.....Low 0.71-3.50 kU/L...........Class 2.....Moderate 3.51-17.50 kU/L..........Class 3.....High 17.51-50.00 kU/L.........Class 4.....Very High 50.01-100.00 kU/L........Class 5.....Very High Greater than 100.00kU/L..Class 6.....Very High Allergen results of 0.10-0.34 kU/L are intended for specialist use as the clinical relevance is undetermined. Even though increasing ranges are reflective of increasing concentrations of allergen-specific IgE, these concentrations may not correlate with the degree of clinical response or skin testing results when challenged with a specific allergen. The correlation of allergy laboratory results with clinical history and in vivo reactivity to specific allergens is essential. A negative test may not rule out clinical allergy or even anaphylaxis. Performed By: [email or web address] [address] [place] [address] Logistics Solution Manager: Yue Kim MD Blood BLOOD SPECIMEN / Unknown Lab Venipuncture / Unknown 12/07/2021 1:38 PM TOOL CRIB LEAD 12/07/2021 2:01 PM TOOL CRIB LEAD Stanley Quezada MD LAB - SEROLOGY ORDER [facility]) [address] [place] [address], [facility] * ALLERGEN RESPIRATORY PROF (IL,MO,IA) IGE (12/07/2021 1:38 PM TOOL CRIB LEAD) Only the most recent of2 resultswithin the time period is included. IgE Total 63 <=214 kU/L 12/10/2021 1:53 PM TOOL CRIB LEAD [facility] ([facility]) Comment: REFERENCE INTERVAL: Immunoglobulin E, Serum Access complete set of age- and/or gender-specific reference intervals for this test in the [facility] Test Directory (Carlotz). Allergen Harley Elder <0.10 <=0.34 kU/L 12/10/2021 1:53 PM TOOL CRIB LEAD [facility] ([facility]) Allergen Alternaria alternata <0.10 <=0.34 kU/L 12/10/2021 1:53 PM TOOL CRIB LEAD [facility] ([facility]) Allergen [place] Maple <0.10 <=0.34 kU/L 12/10/2021 1:53 PM TOOL CRIB LEAD [facility]) Allergen Cat Dander <0.10 <=0.34 kU/L 12/10/2021 1:53 PM TOOL CRIB LEAD [facility] ([facility]) Allergen Mountain Tallmadge <0.10 <=0.34 kU/L 12/10/2021 1:53 PM TOOL CRIB LEAD [facility] ([facility]) Allergen Springfield Tree <0.10 <=0.34 kU/L 12/10/2021 1:53 PM TOOL CRIB LEAD [facility] ([facility]) Allergen Rough Pigweed <0.10 <=0.34 kU/L 12/10/2021 1:53 PM TOOL CRIB LEAD [facility] ([facility]) Allergen Pakistani Thistle <0.10 <=0.34 kU/L 12/10/2021 1:53 PM TOOL CRIB LEAD [facility] ([facility]) Allergen Benny Grass <0.10 <=0.34 kU/L 12/10/2021 1:53 PM TOOL CRIB LEAD [facility] ([facility]) Allergen Hormodendrum <0.10 <=0.34 kU/L 12/10/2021 1:53 PM TOOL CRIB LEAD [facility] ([facility]) Allergen Elm <0.10 <=0.34 kU/L 12/10/2021 1:53 PM TOOL CRIB LEAD [facility] ([facility]) Allergen Manchester <0.10 <=0.34 kU/L 12/10/2021 1:53 PM TOOL CRIB LEAD [facility] ([facility]) Allergen A fumigatus IgE <0.10 <=0.34 kU/L 12/10/2021 1:53 PM TOOL CRIB LEAD [facility] ([facility]) Allergen Dermatophagoides pteronyssinus <0.10 <=0.34 kU/L 12/10/2021 1:53 PM TOOL CRIB LEAD [facility] ([facility]) Allergen Dermatophagoides farinae <0.10 <=0.34 kU/L 12/10/2021 1:53 PM TOOL CRIB LEAD [facility]) Allergen Bermuda Grass <0.10 <=0.34 kU/L 12/10/2021 1:53 PM TOOL CRIB LEAD [facility] ([facility]) Allergen White Germán <0.10 <=0.34 kU/L 12/10/2021 1:53 PM TOOL CRIB LEAD [facility] ([facility]) Allergen P. Notatum <0.10 <=0.34 kU/L 12/10/2021 1:53 PM TOOL CRIB LEAD [facility] ([facility]) Allergen Common Ragweed <0.10 <=0.34 kU/L 12/10/2021 1:53 PM TOOL CRIB LEAD [facility] ([facility]) Allergen Cockroach Colombian <0.10 <=0.34 kU/L 12/10/2021 1:53 PM TOOL CRIB LEAD [facility] ([facility]) Allergen Mickleton Tree <0.10 <=0.34 kU/L 12/10/2021 1:53 PM TOOL CRIB LEAD [facility] ([facility]) Allergen Pipestem Tree <0.10 <=0.34 kU/L 12/10/2021 1:53 PM TOOL CRIB LEAD [facility] ([facility]) Allergen Pecan Tree <0.10 <=0.34 kU/L 12/10/2021 1:53 PM TOOL CRIB LEAD [facility] ([facility]) Allergen Mouse Epithelium IgE <0.10 <=0.34 kU/L 12/10/2021 1:53 PM TOOL CRIB LEAD [facility]) Allergen Mucor racemosus <0.10 <=0.34 kU/L 12/10/2021 1:53 PM TOOL CRIB LEAD [facility]) Allergen White [place] Tree IgE <0.10 <=0.34 kU/L 12/10/2021 1:53 PM TOOL CRIB LEAD [facility] ([facility]) Allergen Dog Dander <0.10 <=0.34 kU/L 12/10/2021 1:53 PM TOOL CRIB LEAD [facility] ([facility]) Comment: Performed By: [email or web address] [address] [place] [address] Logistics Solution Manager: Yue Kim MD Blood BLOOD SPECIMEN / Unknown Lab Venipuncture / Unknown 12/07/2021 1:38 PM TOOL CRIB LEAD 12/07/2021 2:01 PM TOOL CRIB LEAD Stanley Quezada MD LAB - CHEMISTRY ORDE [facility]) [address] [place] [address], [facility] * ALLERGEN SOYBEAN IGE (08/18/2021 12:25 PM CDT) Allergen Soybean <0.10 Class 0 kU/L 08/25/2021 4:10 PM CDT [facility] ([facility]) Comment: Levels of Specific IgE Class Description of Class ----- < 0.10 0 Negative 0.10 - 0.31 0/I Equivocal/Low 0.32 - 0.55 I Low 0.56 - 1.40 II Moderate 1.41 - 3.90 III High 3.91 - 19.00 IV Very High 19.01 - 100.00 V Very High >100.00 Very High Blood BLOOD SPECIMEN / Unknown Lab Venipuncture / Unknown 08/18/2021 12:25 PM CDT 08/18/2021 12:46 PM CDT [facility] ([facility]) - 08/25/2021 4:10 PM CDT Performed at: [address] [place] [phone] Adoption Agent: Eugenio Wells MD, Phone: [phone] Stanley Quezada MD LAB - CHEMISTRY [facility] ([facility]) [address] [id number] * MN EAR MICROSCOPY EXAMINATION (06/13/2021 2:14 PM CDT) Edgar Rivero MD - 06/13/2021 2:14 PM CDT Edgar Piper MD 06/13/2021 2:14 PM Procedure: Microscopic exam of the ear(s) Findings: See main note. Procedure in detail: The binocular operating microscope and and ear speculum were used to exam the ear(s). The patient tolerated the procedure well and there was no bleeding. Edgar Piper MD Edgar Piper MD PROCEDURE/MINOR VINITA GICAL ORDERABLES * AUDIOLOGY/TYMPANOMETRY ORDER (06/13/2021 12:24 PM CDT) Rayo Stephen, PhD - 06/13/2021 12:51 PM CDT Federico Lambert is a 50 year old female was seen for an assessment of their hearing. The patient reports difficulty hearing. There is a report of dizziness. There is a report of tinnitus. There is a report of otalgia. There is not a report of noise exposure. There is not a history of hearing loss in the family. There is a history of previous ear surgery. Results: Findings were reviewed and discussed with Federico Lambert following the hearing evaluation. Written interpretation is also noted in the audiogram report. Plan: 1. The risks and benefits of my recommendations, as well as other treatment options were discussed today. 2. I recommend that the patient follow up with their facility, ENT or PCP PRN. Rayo Montaño, Ph.D., ILEANA., [facility] Skiff Operator Director, Division of Audiology Department of Otolaryngology- Head & Neck Surgery [facility] Rayo Montaño PhD AUDIOLOGY SERVICES O RDERABLES * CARDIAC RHYTHM STRIP ORDER (05/19/2021 5:37 PM CDT) Only the most recent of2 resultswithin the time period is included. Narrative 05/19/2021 5:37 PM CDT Ordered by an unspecified provider. Scanned Document CARDIAC SERVICES ORD ERABLES * GROSS EXAM PATHOLOGY (STL) (05/16/2021 10:59 AM CDT) Case Report Surgical Pathology Report Case: [id number] Authorizing Provider: Vishal Zhou MD Collected: 05/16/2021 10:59 AM Ordering Location: [facility] Received: 05/16/2021 11:50 AM Pathologist: Finn Dillon MD Specimens: A) - Gallbladder B) - Mesh, Abdominal Wall Mesh 05/18/2021 8:42 AM CDT [facility] Final Diagnosis Gallbladder, resection: Chronic cholecystitis with cholesterolosis. Abdominal wall mesh (gross only). 05/18/2021 8:42 AM CDT [facility] Gross Description The requisition and specimen are identified with patient's name and date of . Received in formalin, specimen A, gallbladder is a collapsed gallbladder 6.5 x 3.5 x 1.3 cm. Serosa is pink to purple-winkler with fatty adhesions. The mucosa is pink-winkler with multiple yellow-winkler specks. The wall thickness is 0.2 cm thick. No cystic duct lymph node identified. No lesions are present. Server Software Engineer sections submitted A1. Received in formalin, specimen B, abdominal wall mesh is a pink-winkler synthetic mesh, 12.5 x 7.3 x 0.3 cm with densely adherent soft tissue. The specimen is for gross only. LJ 05/18/2021 8:42 AM CDT [facility] Microscopic Description A microscopic examination was performed. 05/18/2021 8:42 AM CDT [facility] Embedded Images 05/18/2021 8:42 AM CDT [facility] Pathology/Cytology ENTIRE GALLBLADDER / Unknown 05/16/2021 10:59 AM CDT 05/16/2021 11:50 AM CDT Comment:Pre-op diagnosis: Diagnosis unknown [R69] Miscellaneous samples (specimen) MESH / Unknown 05/16/2021 11:01 AM CDT 05/16/2021 11:50 AM CDT Vishal Zhou MD LAB - PATHOLOGY/CYTO LOGY ORDERABLES Performing Organization Address City/State/[facility] Co de Phone Number [facility] [address] [place], [place] [phone] * ETT LINE PERFORMABLE (05/16/2021 9:52 AM CDT) Narrative Mary Squires APRN-CRNA - 05/16/2021 9:52 AM CDT Mary Squires APRN-CRNA 05/16/2021 9:53 AM Endotracheal Tube Placement: Patient Location: OR. Intubation Event Date/Time: 05/16/2021 9:33 AM Procedure: intubation ([id number]). Procedure Section: Sedation: under general anesthesia. Indications for Airway Management: anesthesia Procedure pretreatments used? No Induction: standard IV Patient Position: sniffing Mask Ventilation: easy. Blade Type: Bowie Blade Size: 2 Laryngoscopy View: grade 1 (full cords) Intubation Adjuncts: cricoid pressure and stylet Tube: endotracheal tube Placement: oral Tube type: cuff - inflated Tube Size (MM): 7 Depth of Insertion (CM): 22 Measured From: lips Cuff volume (mL): 4 Cuff Inflated With: air Number of Attempts: 1. Placement Verified By: direct visualization, bilateral breath sounds, chest auscultation and CO2 monitor Tube secured with: adhesive tape. Dentition unchanged? Yes Difficult Airway? No. Procedure Start Time: 05/16/2021 9:33 AM. Staff Section Anesthesia Provider: Mary Squires APRN-LEONOR, Performed the procedure Provider #1: Shereen Patricia MD. Additional Comments: Smooth IV induction. DVOI. Positive ETCO2. Positive BBS. Tube secured. Oral cavity unchanged. . Shereen Patricia MD GENERAL ANESTHESIA O RDERABLES * HCG URINE QUAL POCT NOTIFICATION (05/16/2021 9:00 AM CDT) Only the most recent of4 resultswithin the time period is included. Comment Notification Label Only - See Separate Report 05/16/2021 9:00 AM CDT [facility] Urine URINE / Unknown 7:56 AM CDT Shereen Patricia MD LAB - URINALYSIS ORD ERABLES Performing Organization Address City/[facility] de Phone Number [facility] [address] [place] [phone] * HCG URINE QUALITATIVE - POCT (IP) INTERFACED (05/16/2021 8:11 AM CDT) Only the most recent of4 resultswithin the time period is included. HCG Qual Urine Negative Negative 05/16/2021 8:17 AM CDT [facility] Urine URINE / Unknown 05/16/2021 8 :11 AM CDT 05/16/2021 8:17 AM CDT Vishal Zhou MD LAB - POINT OF CARE ORDERABLES Performing Organization Address [facility] Co de Phone Number [facility] [address] [place] [phone] * NM HEPATOBILIARY W CCK EF (04/19/2021 11:36 AM CDT) Anatomical Region Laterality Modality Abdomen Nuclear Medicine 04/19/2021 10:5 7 AM CDT Impressions 04/19/2021 5:06 PM CDT Impression: 1. No evidence of acute cholecystitis. 2. Normal hepatocellular function in the liver. 3. Probably normal gallbladder function with an ejection fraction of 40 %. However, sensitivity of the study is suboptimal due to use of fatty meal instead of CCK. Of note: According to A Jennyfer et al 2003 : A standard methodology and normal GBEFs (> or =33%) were established for supplement-stimulated cholescintigraphy. Jennyfer SAHA, Noel DA, Amy LR, Marla AK. Cholecystokinin cholescintigraphy: methodology and normal values using a lactose-free fatty-meal food supplement. J Nucl Med. 2002;44(8):1263-6. PMID: [id number]. This report was approved by Patel Baca on 04/19/2021 4:13 PM . I, Dr. AMINA SHAH M.D. have personally reviewed and interpreted this examination/study. This report was electronically signed by AMINA SHAH M.D. on 04/19/2021 5:06 PM . Narrative 04/19/2021 5:06 PM CDT Procedure: Hepatobiliary scan with ejection fraction calculation by fatty meal. History: 50 year old female with right upper quadrant abdominal pain. Patient's BMI is 39.19 kg/m. Technique: 5.5 mCi of [id number] injected IV in the medicine port; dynamic images of the abdomen were obtained for 60 minutes. Ensure (11 g of fat ) was given to patient orally and dynamic imaging were performed for 59 minutes due to shortage of CCK. Comparison: No similar prior. Correlation was made with US ABDOMEN on 04/04/2021, CT ABDOMEN PELVIS on 03/18/2021. Findings: Radiotracer uptake by the visualized portion of liver is homogeneous. Hepatocellular function is normal. Tracer clearance from the liver parenchyma into the biliary tree and small bowel is prompt. The gallbladder is seen as early as 9 minutes. Ensure was given to patient orally and dynamic imaging were performed for 59 minutes which reveals prompt clearance from the gallbladder with an EF of 40%. GBEF of 33% or greater is considered normal. There is no retrograde reflux into the stomach. Procedure Note Amina Shah MD - 04/19/2021 Procedure: Hepatobiliary scan with ejection fraction calculation byfatty meal. History: 50 year old female with right upper quadrant abdominal pain. Patient's BMI is 39.19 kg/m. Technique: 5.5 mCi of [id number] injected IV in the medicine port; dynamic images of the abdomen were obtained for 60 minutes. Ensure (11 g of fat ) was given to patient orally and dynamic imaging were performed for 59 minutes due to shortage of CCK. Comparison: No similar prior. Correlation was made with US ABDOMEN on 04/04/2021, CT ABDOMEN PELVIS on 03/18/2021. Findings: Radiotracer uptake by the visualized portion of liver is homogeneous. Hepatocellular function is normal. Tracer clearance from the liver parenchyma into the biliary tree and small bowel is prompt. The gallbladder is seen as early as 9 minutes. Ensure was given to patient orally and dynamic imaging were performedfor 59 minutes which reveals prompt clearance from the gallbladder with anEF of 40%. GBEF of 33% or greater is considered normal. There is no retrograde reflux into the stomach. Impression: 1. No evidence of acute cholecystitis. 2. Normal hepatocellular function in the liver. 3. Probably normal gallbladder function with an ejection fraction of 40%. However, sensitivity of the study is suboptimal due to use of fatty meal instead of CCK. Of note: According to A Jennyfer et al 2003 : A standard methodology and normal GBEFs (> or =33%) were established for supplement-stimulated cholescintigraphy. Jennyfer SAHA, Noel DA, Amy LR, Marla AK. Cholecystokinin cholescintigraphy: methodology and normal values using a lactose-free fatty-meal food supplement. J Nucl Med. 2003 May;44(8):1263-6. PMID: [id number]. This report was approved by Patel Baca on 04/19/2021 4:13 PM . I, Dr. AMINA SHAH M.D. have personally reviewed and interpreted this examination/study. This report was electronically signed by AMINA SHAH M.D. on04/19/2021 5:06 PM . Vishal Zhou MD NM ORDERABLES * US ABDOMEN LIMITED (04/04/2021 9:08 AM CDT) Only the most recent of2 resultswithin the time period is included. Anatomical Region Laterality Modality Abdomen Ultrasound 04/04/2021 10:0 2 AM CDT Impressions 04/04/2021 11:54 AM CDT IMPRESSION: Unremarkable right upper quadrant ultrasound. Dictated by Austin Gao MD (Resident). I, Dr. PRESTON SWAN have personally reviewed and interpreted this examination/study. This report was electronically signed by PRESTON SWAN on 04/04/2021 11:54 AM . Narrative 04/04/2021 11:54 AM CDT EXAMINATION: Limited abdominal sonogram HISTORY: K80.50: Biliary colic COMPARISON: Abdominal ultrasound dated 11/05/2013 FINDINGS: The liver is normal in echotexture, echogenicity, and surface contour. No discrete hepatic mass or intrahepatic biliary dilation is seen. Color Doppler evaluation demonstrates patency of the hepatic and portal veins. No gallstones or pericholecystic fluid is seen. The gallbladder wall is normal in thickness, measuring 3 mm. The common bile duct is nondilated, measuring 5.8 mm. The right kidney measures 10.9 cm in length. Limited views of the right kidney reveal no evidence of nephrolithiasis or hydronephrosis. The spleen measures 11 cm in length. The visible pancreas is normal in echogenicity. No ascites is present. Procedure Note Preston Swan MD - 04/04/2021 EXAMINATION: Limited abdominal sonogram HISTORY: K80.50: Biliary colic COMPARISON: Abdominal ultrasound dated 11/05/2013 FINDINGS: The liver is normal in echotexture, echogenicity, and surface contour.No discrete hepatic mass or intrahepatic biliary dilation is seen. Color Doppler evaluation demonstrates patency of the hepatic and portal veins. No gallstones or pericholecystic fluid is seen. The gallbladder wall is normal in thickness, measuring 3 mm. The common bile duct is nondilated, measuring 5.8 mm. The right kidney measures 10.9 cm in length. Limited views of the right kidney reveal no evidence of nephrolithiasis or hydronephrosis. Thespleen measures 11 cm in length. The visible pancreas is normal inechogenicity. No ascites is present. IMPRESSION: Unremarkable right upper quadrant ultrasound. Dictated by Austin Gao MD (Resident). Dr. PRESTON Webb have personally reviewed and interpreted this examination/study. This report was electronically signed by PRESTON SWAN on 111:54 AM . Vishal Zhou MD US ORDERABLES * CT ABDOMEN PELVIS W CONTRAST (03/18/2021 10:29 AM CDT) Only the most recent of3 resultswithin the time period is included. Anatomical Region Laterality Modality Abdomen, Pelvis Computed Tomogra phy 03/18/2021 10:3 6 AM CDT Impressions 03/18/2021 12:36 PM CDT Impression: 1.Grossly unchanged appearance of right lower quadrant abdominal wall thickening and stranding compared to prior exam. 2.No intra-abdominal fluid collections identified. 3.Interval decrease in size of a right adnexal cyst now measuring 1.7 x 2.9 x 3.6 cm. Report drafted by Stanley Benitez (resident) Dr. Manish Webb M.D. have personally reviewed and interpreted this examination/study. This report was electronically signed by Manish RIBERA M.D. on 03/18/2021 12:36 PM . Narrative 03/18/2021 12:36 PM CDT Procedure Information DATE: 03/18/2021 10:29 AM EXAMINATION: Computed tomography (CT) of the abdomen and pelvis with contrast TECHNIQUE: CT of the abdomen and pelvis was performed following the uneventful administration of 100 mL of Isovue 370 intravenous contrast according to standard protocol. Clinical Information HISTORY: R50.9: Fever, unspecified fever cause COMPARISON: Comparison is made with a prior CT abdomen pelvis from 08/20/2020. Findings Lower Chest: Linear atelectasis in the lung bases. A central venous line tip is in the superior vena cava. Hepatobiliary: The liver appears normal. The gallbladder is distended without wall thickening. Pancreas: Normal. Spleen: Normal. Kidneys: Normal. Adrenals: Normal. Retroperitoneum: Normal. Peritoneum: Postsurgical changes from ventral hernia repair. Mild thickening and peritoneal fat stranding is seen adjacent to the hernia repair in the right lower quadrant, similar to prior exam from 08/20/2020. Gastrointestinal: The stomach and small bowel are normal in appearance. Postsurgical changes are seen in the region of the sigmoid colon. The cecum and whole colon is mildly distended with stool.A few, prominent right lower quadrant mesenteric lymph nodes are unchanged compared to prior exam. Appendix: Not seen. Pelvic Structures: A right adnexal cyst measures 1.7 x 2.9 x 3.6 cm (series 3 image 122 and series 5 image 82). The uterus is seen. Vasculature: Scattered atherosclerotic vasculature changes. Bones: The visible osseous structures are intact. Mild degenerative changes are seen in the spine. Soft tissues: Inflammation and fat stranding in the right lower quadrant abdominal wall and subcutaneous tissue is similar in appearance compared to prior exam (series 3 image 118). For reference, this measures 1.4 cm AP by 2.2 cm TV by 2.0 cm CC (series 3 image 118 and series 5 image 99), previously 1.5 x 2.2 x 2.0. Procedure Note Cyndee Ribera MD - 03/18/2021 Procedure Information DATE: 03/18/2021 10:29 AM EXAMINATION: Computed tomography (CT) of the abdomen and pelvis with contrast TECHNIQUE: CT of the abdomen and pelvis was performed following the uneventful administration of 100 mL of Isovue 370 intravenous contrast according to standard protocol. Clinical Information HISTORY: R50.9: Fever, unspecified fever cause COMPARISON: Comparison is made with a prior CT abdomen pelvis from 08/20/2020. Findings Lower Chest: Linear atelectasis in the lung bases. A central venous line tip is inthe superior vena cava. Hepatobiliary: The liver appears normal. The gallbladder is distended without wall thickening. Pancreas: Normal. Spleen: Normal. Kidneys: Normal. Adrenals: Normal. Retroperitoneum: Normal. Peritoneum: Postsurgical changes from ventral hernia repair. Mild thickening and peritoneal fat stranding is seen adjacent to the hernia repair in the right lower quadrant, similar to prior exam from 08/20/2020. Gastrointestinal: The stomach and small bowel are normal in appearance. Postsurgicalchanges are seen in the region of the sigmoid colon. The cecum and whole colonis mildly distended with stool.A few, prominent right lower quadrant mesenteric lymph nodes are unchanged compared to prior exam. Appendix: Not seen. Pelvic Structures: A right adnexal cyst measures 1.7 x 2.9 x 3.6 cm (series 3 image 122 and series 5 image 82). The uterus is seen. Vasculature: Scattered atherosclerotic vasculature changes. Bones: The visible osseous structures are intact. Mild degenerative changes are seen in the spine. Soft tissues: Inflammation and fat stranding in the right lower quadrant abdominalwall and subcutaneous tissue is similar in appearance compared to prior exam (series 3 image 118). For reference, this measures 1.4 cm AP by 2.2 cmTV by 2.0 cm CC (series 3 image 118 and series 5 image 99), previously 1.5x 2.2 x 2.0. Impression: 1.Grossly unchanged appearance of right lower quadrant abdominal wall thickening and stranding compared to prior exam. 2.No intra-abdominal fluid collections identified. 3.Interval decrease in size of a right adnexal cyst now measuring 1.7 x 2.9 x 3.6 cm. Report drafted by Stanley Benitez (resident) Dr. Manish Webb M.D. have personally reviewed and interpretedthis examination/study. This report was electronically signed by Manish RIBERA M.D. on 03/18/2021 12:36 PM . Vishal Zhou MD CT ORDERABLES * CREATININE - POCT INTERFACED (03/18/2021 8:58 AM CDT) Only the most recent of2 resultswithin the time period is included. Creatinine POCT 0.76 0.30 - 1.30 mg/dL 03/18/2021 9:29 AM CDT [facility] eGFR >60 >60 mL/min/1.7 3 m2 03/18/2021 9:29 AM CDT [facility] Blood BLOOD SPECIMEN / Unknown 03/18/2021 8:58 AM CDT 03/18/2021 9:29 AM CDT Vishal Zhou MD LAB - POINT OF CARE ORDERABLES [facility] [address] [place] [id number], [facility] [phone] * [place] EAR MICROSCOPY EXAMINATION (02/17/2021 1:11 PM CDT) Narrative Edgar Piper MD - 02/17/2021 1:11 PM CDT Edgar Piper MD 02/17/2021 1:11 PM Procedure: Microscopic exam of the ear(s) Findings: See main note. Procedure in detail: The binocular operating microscope and and ear speculum were used to exam the ear(s). The patient tolerated the procedure well and there was no bleeding. Edgar Piper MD Edgar Piper MD PROCEDURE/MINOR VINITA GICAL ORDERABLES * MAGNESIUM BLOOD (01/30/2021 5:31 AM CDT) Only the most recent of48 resultswithin the time period is included. Magnesium 1.9 1.6 - 2.6 mg/dL 01/30/2021 6:07 AM CDT [facility] Blood BLOOD SPECIMEN / Unknown Venipuncture / Unknown 01/30/2021 5:31 AM CDT 01/30/2021 5:42 AM CDT Enrique Montaño DO LAB - CHEMISTRY MINESH [facility] Performing Organization Address City/State/[facility] Co de Phone Number [facility] [address] [place], [place] [id number] * ETT LINE PERFORMABLE (01/28/2021 12:26 PM CDT) Narrative Gomez Burkett MD - 01/28/2021 12:26 PM CDT Robbie Clarke APRN-LEONOR 01/28/2021 12:27 PM Endotracheal Tube Placement: Patient Location: OR. Intubation Event Date/Time: 01/28/2021 11:56 AM Procedure: intubation ([id number]). Procedure Section: Sedation: IV sedation. Indications for Airway Management: airway protection Procedure pretreatments used? No Induction: standard IV Patient Position: sniffing Mask Ventilation: easy. Blade Type: Lyndon Blade Size: 3 Laryngoscopy View: grade 2 (partial cords) Intubation Adjuncts: cricoid pressure and stylet Tube: endotracheal tube Placement: oral Tube type: cuff - inflated Tube Size (FR): 7 Depth of Insertion (CM): 19 Measured From: gums Cuff volume (mL): 6 Cuff Inflated With: air Number of Attempts: 1. Placement Verified By: direct visualization, bilateral breath sounds, chest auscultation, CO2 monitor and CO2 detector Tube secured with: adhesive tape. Difficult Airway? No. Procedure Start Time: 01/28/2021 11:56 AM. Staff Section Anesthesia Provider: Robbie Clarke, PATIENTS TRANSPORTER-[employer]ICAL [employer]GE[employer], Performed the procedure Gomez Burkett MD GENERAL ANESTHESIA ORDERABLES * CULTURE ABSCESS+GRAM STAIN (01/28/2021 12:22 PM CDT) Only the most recent of2 resultswithin the time period is included. Culture No growth NICOLETTE 01/31/2021 6:37 AM CDT [facility] Gram Stain No organisms seen 021 6:37 AM CDT [facility] Gram Stain Moderate Polymorphonuclear cells 01/31/2021 6:37 AM CDT [facility] Microbiology TISSUE SPECIMEN / Unknown 01/28/2021 12:22 PM CDT 01/28/2021 2:10 PM CDT Comment:Pre-op diagnosis: Diagnosis unknown [R69] Narrative [facility] - 01/31/2021 6:37 AM CDT Surgical Description: Intra-Abdominal Abcess Vishal Zhou MD LAB - MICROBIOLOGY O RDERABLES [facility] [address] [place] [address], [facility] [phone] * CULTURE FLUID+GRAM STAIN (01/28/2021 12:18 PM CDT) Culture No growth NICOLETTE 01/31/2021 10:33 PM CDT [facility] Gram Stain No organisms seen 021 10:33 PM CDT [facility] Gram Stain Light Polymorphonuclear cells 01/31/2021 10:33 PM CDT [facility] Fluid PERITONEAL FLUID / Unknown 01/28/2021 12:18 PM CDT 01/28/2021 2:11 PM CDT Comment:Pre-op diagnosis: Diagnosis unknown [R69] Narrative [facility] - 01/31/2021 10:33 PM CDT Surgical Description: Abdominal Fluid Vishal Zhou MD LAB - MICROBIOLOGY O RDERABLES Performing Organization Address City/[facility] Co de Phone Number [facility] [address] [place], [place] [address] [phone] * HCG URINE QUALITATIVE (01/27/2021 6:00 PM CDT) Only the most recent of2 resultswithin the time period is included. hCG Qualitative Urine Negative Negative 01/27/2021 6:06 PM CDT [facility] Urine URINE / Unknown Collection / Unknown 01/27/2021 6:00 PM CDT 01/27/2021 6:00 PM CDT Prosper Saucedo APRN-[employer]ICAL [employer]GEANT LAB - URINA LYSIS ORDERABLES Performing Organization Address [facility] Co de Phone Number [facility] [address] [place] [address] * EKG 12-LEAD (01/27/2021 2:31 PM CDT) Only the most recent of11 resultswithin the time period is included. Ventricular Rate 89 BPM [facility] Atrial Rate 89 BPM [facility] P-R Interval 148 ms [facility] QRS Duration ms 100 ms [facility] Q-T Interval ms 410 ms [facility] QTC Calculation (Bezet) 498 ms [facility] Calculated P [place] 55 degrees [facility] Calculated R [place] 37 degrees [facility] Calculated T [place] 44 degrees [facility] Interpretation EKG NORMAL SINUS RHYTHM PROLONGED QT ABNORMAL ECG WHEN COMPARED WITH ECG OF 09-APR-2020 09:49, NO SIGNIFICANT CHANGE WAS FOUND Confirmed by DO Zuleta Stephanie ([id number]) on 01/28/2021 11:44:17 AM [facility] 01/27/2021 2:31 PM CDT 01/28/2021 11:44 AM CDT Enrique Montaño DO ECG ORDERABLES Performing Organization Address [facility] Co de Phone Number [facility] * CT PELVIS WO CONTRAST (01/26/2021 3:42 PM CDT) Anatomical Region Laterality Modality Pelvis Computed Tomogra phy 01/26/2021 4:28 PM CDT Impressions 01/26/2021 4:31 PM CDT Mesh along the anterior abdominal wall prevents placement of percutaneous drainage of patient's right lower quadrant abscess/fluid collection. *Reading Radiologist: Altaf Auguste on 01/26/2021 at 4:31 PM Narrative 01/26/2021 4:[address] pelvis without contrast INDICATION: Intra-abdominal abscess TECHNIQUE: Helical images were obtained through the pelvis. FINDINGS: CT scan was performed prior to abscess drainage. Unfortunately patient's fluid collection in the right lower quadrant is covered by mesh from prior abdominal wall surgery. This prevents access to the fluid collection percutaneously. There are dilated loops of small bowel suggesting ileus. Colonic structures are decompressed. There are postop changes of the rectosigmoid colon. There is free fluid in the dependent portion of the pelvis. The bladder and uterus are unremarkable. Procedure Note Altaf Auguste MD - 01/26/2021 CT pelvis without contrast INDICATION: Intra-abdominal abscess TECHNIQUE: Helical images were obtained through the pelvis. FINDINGS: CT scan was performed prior to abscess drainage. Unfortunately patient's fluid collection in the right lower quadrant is covered by mesh from prior abdominal wall surgery. This prevents access to the fluid collection percutaneously. There are dilated loops of small bowel suggesting ileus. Colonic structures are decompressed. There are postop changes of the rectosigmoid colon. There is free fluid in the dependent portion of the pelvis. The bladder and uterus are unremarkable. IMPRESSION Mesh along the anterior abdominal wall prevents placement of percutaneous drainage of patient's right lower quadrant abscess/fluid collection. *Reading Radiologist: Altaf Auguste on 01/26/2021 at 4:31 PM [address] Maddox MD CT ORDERABLES * (ABNORMAL) PT-INR (01/26/2021 1:37 PM CDT) PT 15.9(H) 12.1 - 14.8 sec 01/26/2021 1:56 PM CDT [facility] INR 1.3(H) 0.9 - 1.1 01/26/2021 1:56 PM CDT [facility] Blood BLOOD SPECIMEN / Unknown Venipuncture / Unknown 01/26/2021 1:37 PM CDT 01/26/2021 1:37 PM CDT Narrative [facility] - 01/26/2021 1:56 PM CDT Conventional Warfarin Anticoagulant Therapy: INR Reference Range: 2.0-3.0 Intensive Warfarin Anticoagulant Therapy: INR Reference Range: 2.5-3.5 Enrique Montaño DO LAB - COAGULATION OR DERABLES Performing Organization Address [facility] Co de Phone Number [facility] [address] [place] [phone] * (ABNORMAL) SLIDE SCAN HEMATOLOGY (01/26/2021 5:20 AM CDT) Pathologist [facility] WBC Morph Normal 01/26/2021 6:29 AM CDT [facility] RBC Morphology Normal 01/26/2021 6:29 AM CDT [facility] Platelet Estimation Adequate platelets Normal, Adequate platelets 01/26/2021 6:29 AM CDT [facility] Clumped Platelets Occasional(A ) None 01/26/2021 6:29 AM CDT [facility] Blood BLOOD SPECIMEN / Unknown Lab Venipuncture / Unknown 01/26/2021 5:20 AM CDT 01/26/2021 5:52 AM CDT Janusz Holland MD LAB - HEMATOLOGY ORD ERABLES Performing Organization Address City/[facility]/ZIP Co de Phone Number [facility] [address] [place] [phone] * (ABNORMAL) RENAL FUNCTION PANEL (01/26/2021 5:20 AM CDT) Only the most recent of2 resultswithin the time period is included. Glucose 87 70 - 105 mg/dL 01/26/2021 6:26 AM CDT [facility] Sodium 132(L) 136 - 145 mmol/L 01/26/2021 6:26 AM CDT [facility] Potassium 3.6 3.5 - 5.1 mmol/L 01/26/2021 6:26 AM CDT [facility] Chloride 103 98 - 107 mmol/L 01/26/2021 6:26 AM CDT [facility] CO2 18(L) 23 - 31 mmol/L 01/26/2021 6:26 AM CDT [facility] Calcium 8.4 8.4 - 10.4 mg/dL 01/26/2021 6:26 AM CDT [facility] Anion Gap 11 8 - 18 mmol/L 01/26/2021 6:26 AM CDT [facility] Comment:Attention clinician: Reference Range change. BUN 5(L) 9.8 - 20.1 mg/dL 01/26/2021 6:26 AM CDT [facility] Creatinine 0.72 0.57 - 1.11 mg/dL 01/26/2021 6:26 AM CDT [facility] Albumin 3.2(L) 3.5 - 5.2 gm/dL 01/26/2021 6:26 AM CDT [facility] Phosphorus 1.9(L) 2.3 - 4.7 mg/dL 01/26/2021 6:26 AM CDT [facility] Comment:Attention clinician: Reference Range change. eGFR by MDRD >60 >60 mL/min/1.7 3m2 01/26/2021 6:26 AM CDT [facility] eGFR by MDRD >60 >60 mL/min/1.7 3m2 01/26/2021 6:26 AM CDT [facility] Blood BLOOD SPECIMEN / Unknown Lab Venipuncture / Unknown 01/26/2021 5:20 AM CDT 01/26/2021 5:52 AM CDT Janusz Holland MD LAB - CHEMISTRY [facility]ESH [facility] Address City/State/ZIP Co de Phone Number [facility] [address] [place] [address] * SARS-COV-2 (COVID-19) RAPID (01/26/2021 2:03 AM CDT) [facility] Signature COVID-19 PCR Not detected Not detected 01/27/20 21 3:15 AM CDT [facility] Microbiology SPECIMEN FROM NASOPHARYNGEAL STRUCTURE / Unknown Collection / Unknown 01/26/2021 2:03 AM CDT 01/26/2021 2:29 AM CDT Narrative [facility] - 01/26/2021 3:15 AM CDT The [employer] Xpert Xpress SARS-COV-2 has been authorized by the Food and Drug Administration (FDA) under an Emergency Use Authorization (EUA). This test has been validated in accordance with the FDA's guidance document Policy for Diagnostic Testing in Laboratories Certified to perform High Complexity Testing under CLIA prior to Emergency Use Authorization for Coronavirus Disease-2019 during the Public Health Emergency issued on December 27, 2019. FDA independent review of this validation is pending. This test is only authorized for the duration of the time the declaration that circumstances exist justifying the authorization of emergency use of in vitro diagnostic tests for detection of SARS-COV-2 virus and/or diagnosis of COVID-19 infection under 564(b) (1) of the Act. 21 U.S.C. 360bbb-3 (b) (1), unless the authorization is terminated or revoked sooner. Fact Sheets for this EUA assay are available upon request. Janusz Holland MD LAB - MICROBIOLOGY O RDERABLES [facility] [address] [place] [address] * XR CHEST 1VW (01/25/2021 8:49 PM CDT) Only the most recent of2 resultswithin the time period is included. Anatomical Region Laterality Modality Chest Radiographic Colette ging 01/25/2021 8:53 PM CDT Narrative 01/25/2021 8:53 PM CDT Chest 01/25/2021 at 2031 hours HISTORY: Intra-abdominal abscess There is a right IJ Port-A-Cath. The heart size is normal. The pulmonary vascularity is normal. A linear infiltrate is present in the right midlung field suggesting atelectasis or possibly fluid within the right minor fissure. The lungs are otherwise clear. No pneumothorax is seen *Reading Radiologist: Patel Corona on 01/25/2021 at 8:53 PM Procedure Note Patel Corona MD - 01/25/2021 Chest 01/25/2021 at 2031 hours HISTORY: Intra-abdominal abscess There is a right IJ Port-A-Cath. The heart size is normal. The pulmonary vascularity is normal. A linear infiltrate is present in the right midlung field suggesting atelectasis or possibly fluid within the right minor fissure. The lungs are otherwise clear. No pneumothorax is seen *Reading Radiologist: Patel Corona on 01/25/2021 at 8:53 PM Janusz Holland MD DIAGNOSTIC IMAGING O RDRONALDO * CULTURE BLOOD (01/25/2021 7:29 PM CDT) Only the most recent of19 resultswithin the time period is included. Culture No growth day 5 NICOLETTE 01/30/2021 11:00 PM CDT [facility] Blood PERIPHERAL BLOOD / Unknown Lab Venipuncture / Unknown 01/25/2021 7:29 PM CDT 01/25/2021 7:40 PM CDT Janusz Holland MD LAB - MICROBIOLOGY O RDRONALDO Performing Organization Address City/[facility]/ZIP Co de Phone Number [facility] [address] [phone] * LACTIC ACID BLOOD (01/25/2021 7:29 PM CDT) Only the most recent of7 resultswithin the time period is included. Lactic Acid 1.2 0.5 - 2.2 mmol/L 01/25/2021 8:04 PM CDT [facility] Blood BLOOD SPECIMEN / Unknown Lab Venipuncture / Unknown 01/25/2021 7:29 PM CDT 01/25/2021 7:41 PM CDT Janusz Holland MD LAB - CHEMISTRY MINESH [facility] Performing Organization Address City/[facility]/ZIP Co de Phone Number [facility] [address] [place] [address] * ETT LINE PERFORMABLE (12/28/2020 8:18 AM TOOL CRIB LEAD) Narrative Debra Mckeon APRN-CRNA - 12/28/2020 8:18 AM TOOL CRIB LEAD Debra Mckeon APRN-CRNA 12/28/2020 8:19 AM Endotracheal Tube Placement: Patient Location: OR. Intubation Event Date/Time: 12/28/2020 7:57 AM Procedure: intubation ([id number]). Procedure Section: Sedation: under general anesthesia. Indications for Airway Management: anesthesia Induction: standard IV and patient unconcious Patient Position: sniffing Mask Ventilation: easy. Blade Type: Bowie Blade Size: 2 Laryngoscopy View: grade 1 (full cords) Intubation Adjuncts: stylet Tube: endotracheal tube Placement: oral Tube type: cuff - inflated Tube Size (MM): 8 Depth of Insertion (CM): 22 Measured From: lips Cuff volume (mL): 7 Cuff Inflated With: air Number of Attempts: 2 (first attempt by MS4). Placement Verified By: direct visualization, bilateral breath sounds, chest auscultation and CO2 monitor Tube secured with: adhesive tape. Dentition unchanged? Yes Difficult Airway? No. Procedure Start Time: 12/28/2020 7:57 AM. Staff Section Anesthesia Provider: Debra Mckeon APRN-CRNA, Performed the procedure Provider #1: Dorothy Jacques MD. Dorothy Trinidad MD GENERAL ANESTHESIA ORDERABLES * SARS-COV-2 (COVID-19) PRE-SURGICAL/PROCEDURE (12/24/2020 1:09 PM TOOL CRIB LEAD) Only the most recent of4 resultswithin the time period is included. COVID-19 PCR Not detected Not detected 12/24/2020 9:33 PM TOOL CRIB LEAD [facility] Microbiology SPECIMEN FROM NASOPHARYNGEAL STRUCTURE / Unknown Collection / Unknown 12/24/2020 1:09 PM TOOL CRIB LEAD 12/24/2020 1:09 PM TOOL CRIB LEAD Narrative [facility] - 12/24/2020 9:33 PM TOOL CRIB LEAD This nucleic acid amplification assay performance was validated by [facility]. This test has been authorized by the Food and Drug administration (FDA)under an Emergency Use Authorization (EUA). This test has been validated in accordance with the FDA's guidance document Policy for Diagnostic Testing in Laboratories Certified to perform High Complexity Testing under CLIA prior to Emergency Use Authorization for Coronavirus Disease-2019 during the Public Health Emergency issued on December 27, 2019. FDA independent review of this validation is pending. This test is only authorized for the duration of time the declaration that circumstances exist justifying the authorization of emergency use of in vitro diagnostic tests for detection of SARS-CoV-2 virus and/or diagnosis of COVID-19 infection under section 564(b)(1) of the Act, 21 U.S.C 360bbb-3 (b)(1), unless the authorization is terminated or revoked sooner. Fact Sheets for this EUA assay are available upon request. Vishal Zhou MD LAB - MICROBIOLOGY O RDERABLES [facility] [address] [place], [place] [id number] [place] [address] * MN EAR MICROSCOPY EXAMINATION (12/20/2020 2:57 PM TOOL CRIB LEAD) Narrative Edgar Piper MD - 12/20/2020 2:57 PM TOOL CRIB LEAD Edgar Piper MD 12/20/2020 3:01 PM Procedure: Microscopic exam of the ear(s) Findings: See main note. Procedure in detail: The binocular operating microscope and and ear speculum were used to exam the ear(s). The patient tolerated the procedure well and there was no bleeding. Edgar Piper MD Edgar Piper MD PROCEDURE/MINOR VINITA GICAL ORDERABLES * SARS-COV-2 (COVID-19) ANTIBODY IGG (12/20/2020 12:53 PM TOOL CRIB LEAD) CoV2 IGG Positive 12/20/2020 9:35 PM TOOL CRIB LEAD [facility] Blood BLOOD SPECIMEN / Unknown Lab Venipuncture / Unknown 12/20/2020 12:53 PM TOOL CRIB LEAD 12/20/2020 1:43 PM TOOL CRIB LEAD Narrative [facility] - 12/20/2020 9:35 PM TOOL CRIB LEAD This serologic based test was developed by [employer] and its performance characteristics determined by [facility]. This test has not been fully reviewed by the FDA but is being allowed for use per the FDAs' Emergency Use Authorization. Please note the following disclaimers: Negative results do not rule out SARS-CoV-2 infection, particularly in those who have been in contact with the virus. Follow-up testing with a molecular diagnostic should be considered to rule out infection in these individuals. Results from antibody testing should not be used as the sole basis to diagnose or exclude SARS-CoV-2 infection or to inform infection status. False positive results may be due to past or present infection with [id number] coronavirus strains. Rigorous scientific studies have not been completed to determine if detectable IgG to SARS-CoV-2 confers protective immunity. Bonifacio Easton MD LAB - CHEMISTRY [facility] Address City/State/ZIP Co de Phone Number [address] [address], [facility] [phone] * PROC DESTRUCT BENIGN LESION NOT SKIN TAG (11/15/2020 1:06 PM TOOL CRIB LEAD) Narrative Madeleine Chavez MD - 11/15/2020 1:06 PM TOOL CRIB LEAD Madeleine Chavez MD 11/15/2020 1:07 PM Liquid nitrogen was applied for 10-12 seconds to the inflamed seborrheic keratosis and the expected blistering or scabbing reaction explained. Do not pick at the area. Patient reminded to expect hypopigmented scars from the procedure. Return if lesion fails to fully resolve. Madeleine Chavez MD PROCEDURE/SETH R SURGICAL ORDERABLES * MN EAR MICROSCOPY EXAMINATION (11/08/2020 2:29 PM TOOL CRIB LEAD) Narrative Edgar Piper MD - 11/08/2020 2:29 PM TOOL CRIB LEAD Edgar Piper MD 11/08/2020 2:30 PM Procedure: Microscopic exam of the ear(s) Findings: See main note. Procedure in detail: The binocular operating microscope and and ear speculum were used to exam the ear(s). The patient tolerated the procedure well and there was no bleeding. Edgar Piper MD Edgar Piper MD PROCEDURE/MINOR VINITA GICAL ORDERABLES * AUDIOLOGY/TYMPANOMETRY ORDER (11/08/2020 12:51 PM TOOL CRIB LEAD) Rayo Stephen, PhD - 11/08/2020 1:34 PM TOOL CRIB LEAD Federico Lambert is a 50 year old female was seen for an assessment of their hearing. The patient reports difficulty hearing. There is a report of dizziness. There is a report of tinnitus. There is a report of otalgia, ear pressure, TM perforation AD and left ear drainage the last couple of days. There is a history of previous ear surgery. Plan: 1. The risks and benefits of my recommendations, as well as other treatment options were discussed today. 2. I recommend that the patient follow up with an ENT/ PCP. Rayo Montaño, Ph.D., CCC-A Skiff Operator Director, Division of Audiology Department of Otolaryngology- Head & Neck Surgery [facility] Rayo Montaño PhD AUDIOLOGY SERVICES O RDERABLES * ENDOSCOPY, COLON, SCREENING (10/11/2020 10:30 AM TOOL CRIB LEAD) Report Endoscopy POC Endoscopy Department Report _ Patient Name: Federico Lambert Procedure Date: 10/11/2020 10:30 AM Date [...] and oxygen saturations were monitored continuously. The [id number] was introduced through the anus and advanced to the cecum, identified by appendiceal orifice and ileocecal valve. The colonoscopy was performed without difficulty. The patient tolerated the procedure well. The ileocecal valve, appendiceal orifice, and rectum were photographed. The quality of the bowel preparation was evaluated using the BBPS (Copeland Bowel Preparation Scale) with scores of: Right [...] healthy appearing mucosa with few visible surgical cray. The anastomosis was traversed without resistance. The [...] non-gray portions. Procedure Code(s): --- Professional --- 96607, Colonoscopy, flexible; with biopsy, single or multiple Diagnosis Code(s): --- Professional --- Z12.11, Encounter for screening for malignant neoplasm of colon K63.5, Polyp of colon Z98.0, Intestinal bypass and anastomosis status CPT copyright 2019 [employer]. All rights reserved. The codes documented in this report are preliminary and upon electrical engineer review may be revised to meet current compliance requirements. Humza Wiley MD 10/11/2020 11:33:23 AM Note Initiated On: 10/11/2020 10:30 AM Number of Addenda: [address] [id number] [facility] 10/11/2020 10:3 0 AM TOOL CRIB LEAD Humza Wiley MD GI PROCEDURE ORDERABLES [facility] * (ABNORMAL) CULTURE WOUND+GRAM STAIN (10/07/2020 4:31 PM TOOL CRIB LEAD) Only the most recent of2 resultswithin the time period is included. Culture Light Staphylococcus aureus(A) NICOLETTE 10/10/2020 6:08 AM [facility] Comment:Staphylococcus aureu s methicillin-susceptible (MSSA) detected by penicillin binding protein immunoassay. Gram Stain No organisms seen 020 6:08 AM TOOL CRIB LEAD [facility] Gram Stain Rare Polymorphonuclear cells 10/10/2020 6:08 AM [facility] Microbiology EAR SWAB SPECIMEN / Unknown Collection / Unknown 10/07/2020 4:31 PM TOOL CRIB LEAD 10/07/2020 7:19 PM TOOL CRIB LEAD Narrative Organism Antibiotic Method Susceptibility Staphylococcus aureus Clindamycin NICOLETTE >=4 ug/mL: Resistant Staphylococcus aureus Doxycycline NICOLETTE <=0.5 ug/mL: Susceptible Staphylococcus aureus Erythromycin NICOLETTE >=8 ug/mL: Resistant Staphylococcus aureus Gentamicin NICOLETTE <=0.5 ug/mL: Susceptible Staphylococcus aureus Inducible Clindamy jose c Resistance NICOLETTE NEG ug/mL: Neg Staphylococcus aureus Linezolid NICOLETTE 2 ug/mL: Susceptible Staphylococcus aureus Oxacillin NICOLETTE <=0.25 ug/mL: Susceptible Staphylococcus aureus Tetracycline NICOLETTE <=1 ug/mL: Susceptible Staphylococcus aureus Trimethoprim-sulfa methoxa zole NICOLETTE <=10 ug/mL: Susceptible Staphylococcus aureus Vancomycin NICOLETTE <=0.5 ug/mL: Susceptible Comment:Methicillin-suscepti ble Staphylococci are susceptible to oxacillin, nafcillin, cloxacillin,dicloxacillin, beta lactam/betalactamase inhibitor combinations, cephalosporins including cefazolin and carbapenems. Edgar Piper MD LAB - MICROBIOLOGY ORDERABLES [facility] [address] [place] [address] [phone] * MN EAR MICROSCOPY EXAMINATION (10/07/2020 3:13 PM TOOL CRIB LEAD) Edgar Rivero MD - 10/07/2020 3:13 PM TOOL CRIB LEAD Edgar Piper MD 10/07/2020 3:18 PM Procedure: Microscopic exam of the ear(s) Findings: See main note. Procedure in detail: The binocular operating microscope and and ear speculum were used to exam the ear(s). The patient tolerated the procedure well and there was no bleeding. Edgar Piper MD Edgar Piper MD PROCEDURE/MINOR VINITA GICAL ORDERABLES * MN NASAL ENDOSCOPY,DX (09/29/2020 2:31 PM TOOL CRIB LEAD) Narrative Gerardo Angeles MD - 09/29/2020 2:31 PM TOOL CRIB LEAD Gerardo Angeles MD 09/29/2020 2:32 PM Procedure: Rigid Nasal Endoscopy Anesthesia: Bilateral Nasal Cavities sprayed with lidocaine and Neosynephrine Detail: Rigid nasal endoscopy performed bilaterally. Septum was midline. Bilaterally there has been extensive sinus surgery with a Lothrop procedure. All sinuses continue to be open. On the left the maxillary, sphenoid, and ethmoid are open with no significant edema or debris. There is some thick material from the right sphenoid and maxillary sinuses consistent with allergic mucin. Bilaterally in the superior frontal there is thick allergic mucin. I suctioned this with frontal suction as much as patient would tolerate. No blanche polyposis. Gerardo Angeles MD PROCEDURE/MINOR VINITA GICAL ORDERABLES * MN EAR MICROSCOPY EXAMINATION (09/01/2020 2:38 PM TOOL CRIB LEAD) Gerardo Rudolph MD - 09/01/2020 2:38 PM TOOL CRIB LEAD Gerardo Angeles MD 09/01/2020 2:39 PM Procedure: Microscopic Ear Exam Details: Informed consent was obtained. The patient was placed in the supine position. The operative microscope used to visualize both ear canals. On the right there is purulent debris coming out of the ear canal and down the side of her ear. This was suctioned. Culture was taken. The tympanic membrane has a perforation which appears stable. Suctioned otorrhea from within the middle ear space and noted what appeared to be a green T-tube within the middle ear space. On the left the ear canal was cleaned and there is dried light brown crust over what appears to be a perforation. Patient tolerated well. Gerardo Angeles MD PROCEDURE/MINOR VINITA GICAL ORDERABLES * US TRANSVAGINAL NON OB (09/01/2020 1:57 PM TOOL CRIB LEAD) Anatomical Region Laterality Modality Abdomen Ultrasound 09/01/2020 1:52 PM TOOL CRIB LEAD Impressions 09/01/2020 2:09 PM TOOL CRIB LEAD IMPRESSION: Large 5.3 cm cyst originating from the right ovary. Recommend ultrasound follow-up in 3-6 months for resolution or growth assessment. Dictated by Juli Nava MD (resident). I, Dr. PRESTON SWAN have personally reviewed and interpreted this examination/study. This report was electronically signed by PRESTON SWAN on 09/01/2020 2:09 PM . Narrative 09/01/2020 2:09 PM TOOL CRIB LEAD EXAMINATION: 1. Transabdominal pelvic sonogram 2. Transvaginal pelvic sonogram HISTORY: R93.5: Abnormal CT scan, pelvis, R19.8: Right pelvic adnexal fluid collection, postmenopausal COMPARISON: CT abdomen and pelvis dated 08/20/2020 FINDINGS: Transabdominal: Pelvic structures were not well seen on the transabdominal ultrasound. Transvaginal: The uterus measures 4.3 x 1.7 x 3.3 cm. The right ovary measures 3.1 x 1.8 x 2.0 cm. The left ovary measures 2.6 x 1.9 x 1.6 cm. A large cyst is seen originating from the right ovary that measures 4.9 x 3.3 x 5.3. The left ovary appears normal for the patient's age. A few follicles are seen in both ovaries. There is no evidence of ovarian torsion. The uterus appears normal. The endometrial bilayer thickness measures 3 mm, which is within normal limits for postmenopausal women. No free fluid is present in the cul-de-sac. Procedure Note Preston Swan MD - 09/01/2020 EXAMINATION: 1. Transabdominal pelvic sonogram 2. Transvaginal pelvic sonogram HISTORY: R93.5: Abnormal CT scan, pelvis, R19.8: Right pelvic adnexal fluid collection, postmenopausal COMPARISON: CT abdomen and pelvis dated 08/20/2020 FINDINGS: Transabdominal: Pelvic structures were not well seen on the transabdominal ultrasound. Transvaginal: The uterus measures 4.3 x 1.7 x 3.3 cm. The right ovary measures 3.1 x1.8 x 2.0 cm. The left ovary measures 2.6 x 1.9 x 1.6 cm. A large cyst isseen originating from the right ovary that measures 4.9 x 3.3 x 5.3. The left ovary appears normal for the patient's age. A few follicles are seen in both ovaries. There is no evidence of ovarian torsion. The uterus appears normal. The endometrial bilayer thickness measures 3 mm, which is within normal limits for postmenopausal women. No freefluid is present in the cul-de-sac. IMPRESSION: Large 5.3 cm cyst originating from the right ovary. Recommend ultrasound follow-up in 3-6 months for resolution or growth assessment. Dictated by Juli Nava MD (resident). Dr. PRESTON Webb have personally reviewed and interpreted this examination/study. This report was electronically signed by PRESTON SWAN on 09/01/20202:09 PM . Val Huber MD US ORDERABLES * US PELVIS COMPLETE (09/01/2020 1:56 PM TOOL CRIB LEAD) Anatomical Region Laterality Modality Pelvis Ultrasound 09/01/2020 1:52 PM TOOL CRIB LEAD Impressions 09/01/2020 2:09 PM TOOL CRIB LEAD IMPRESSION: Large 5.3 cm cyst originating from the right ovary. Recommend ultrasound follow-up in 3-6 months for resolution or growth assessment. Dictated by Juli Nava MD (resident). Dr. PRESTON Webb have personally reviewed and interpreted this examination/study. This report was electronically signed by PRESTON SWAN on 09/01/2020 2:09 PM . Narrative 09/01/2020 2:09 PM TOOL CRIB LEAD EXAMINATION: 1. Transabdominal pelvic sonogram 2. Transvaginal pelvic sonogram HISTORY: R93.5: Abnormal CT scan, pelvis, R19.8: Right pelvic adnexal fluid collection, postmenopausal COMPARISON: CT abdomen and pelvis dated 08/20/2020 FINDINGS: Transabdominal: Pelvic structures were not well seen on the transabdominal ultrasound. Transvaginal: The uterus measures 4.3 x 1.7 x 3.3 cm. The right ovary measures 3.1 x 1.8 x 2.0 cm. The left ovary measures 2.6 x 1.9 x 1.6 cm. A large cyst is seen originating from the right ovary that measures 4.9 x 3.3 x 5.3. The left ovary appears normal for the patient's age. A few follicles are seen in both ovaries. There is no evidence of ovarian torsion. The uterus appears normal. The endometrial bilayer thickness measures 3 mm, which is within normal limits for postmenopausal women. No free fluid is present in the cul-de-sac. Procedure Note Preston Swan MD - 09/01/2020 EXAMINATION: 1. Transabdominal pelvic sonogram 2. Transvaginal pelvic sonogram HISTORY: R93.5: Abnormal CT scan, pelvis, R19.8: Right pelvic adnexal fluid collection, postmenopausal COMPARISON: CT abdomen and pelvis dated 08/20/2020 FINDINGS: Transabdominal: Pelvic structures were not well seen on the transabdominal ultrasound. Transvaginal: The uterus measures 4.3 x 1.7 x 3.3 cm. The right ovary measures 3.1 x1.8 x 2.0 cm. The left ovary measures 2.6 x 1.9 x 1.6 cm. A large cyst isseen originating from the right ovary that measures 4.9 x 3.3 x 5.3. The left ovary appears normal for the patient's age. A few follicles are seen in both ovaries. There is no evidence of ovarian torsion. The uterus appears normal. The endometrial bilayer thickness measures 3 mm, which is within normal limits for postmenopausal women. No freefluid is present in the cul-de-sac. IMPRESSION: Large 5.3 cm cyst originating from the right ovary. Recommend ultrasound follow-up in 3-6 months for resolution or growth assessment. Dictated by Juli Nava MD (resident). I, Dr. PRESTON SWAN have personally reviewed and interpreted this examination/study. This report was electronically signed by PRESTON SWAN on 09/01/20202:09 PM . Val Huber MD ORDERABLES * MN ENDO NASAL SINUS BX POLYP DEBRID COREY (06/23/2020 1:54 PM CDT) Narrative Gerardo Angeles MD - 06/23/2020 1:54 PM CDT Theodore Hairston MD 06/23/2020 4:24 PM Procedure: Nasal Endoscopy With Debridement Anesthesia: Bilateral Nasal Cavity sprayed with Lidocaine and Phenylephrine Detail: Rigid nasal endoscopy was performed in bilateral nasal cavity. Removed crusting and thick secretions with suction and forceps. Was then able to visualize the nasal cavity. The bilateral maxillary, ethmoid, sphenoid, and frontal sinuses were open. Dr. Angeles was present for the entire procedure. Theodore Hairston MD PROCEDURE/MINOR SURG ICAL ORDERABLES * MN REMOVE CERUMEN IMPACTED W INSTR COREY (06/23/2020 1:53 PM CDT) Narrative Gerardo Angeles MD - 06/23/2020 1:53 PM CDT Theodore Hairston MD 06/23/2020 4:24 PM Procedure Note: Ear debridement bilateral Procedure Details: Informed consent was obtained. The patient was placed in the supine position. The operative microscope used to visualize both ear canals. Mucoid effusion was suctioned from the right ear. Some packing was removed from the left. The patient tolerated the procedure without complication. The following findings were noted: T tube in place in left ear with otherwise intact TM. Right packing left in place The patient tolerated procedure well. Complications: None Dr. Angeles was present for the entire procedure. Theodore Hairston MD PROCEDURE/MINOR SURG ICAL ORDERABLES * ETT LINE PERFORMABLE (06/17/2020 8:14 AM CDT) Narrative Hermilo Zambrano APRN-LEONOR - 06/17/2020 8:14 AM CDT Hermilo Zambrano APRN-LEONOR 06/17/2020 8:16 AM Endotracheal Tube Placement: Patient Location: OR. Intubation Event Date/Time: 06/17/2020 7:45 AM Procedure: intubation ([id number]). Procedure Section: Sedation: under general anesthesia. Indications for Airway Management: anesthesia Induction: standard IV Patient Position: sniffing and supine Mask Ventilation: easy. Blade Type: Lyndon Blade Size: 3 Laryngoscopy View: grade 1 (full cords) Tube: endotracheal tube Placement: oral Tube Size (MM): 7 Depth of Insertion (CM): 21 Cuff Inflated With: air Number of Attempts: 1. Placement Verified By: direct visualization, bilateral breath sounds and CO2 monitor Tube secured with: adhesive tape. Dentition unchanged? Yes Difficult Airway? No. Procedure Start Time: 06/17/2020 7:45 AM. Staff Section Anesthesia Provider: Hermilo Zambrano, PATIENTS TRANSPORTER-[employer]CIAL [employer] MEDICAL SERGEANT, Performed the procedure Additional Comments: DVOI x 1 per ED resident. Myrna Wahl MD GENERAL ANESTHESIA O RDERABLES * MN EAR MICROSCOPY EXAMINATION (05/10/2020 1:41 PM CDT) Narrative Edgar Piper MD - 05/10/2020 1:41 PM CDT Edgar Piper MD 05/10/2020 1:41 PM Procedure: Microscopic exam of the ear(s) Findings: See main note. Procedure in detail: The binocular operating microscope and and ear speculum were used to exam the ear(s). The patient tolerated the procedure well and there was no bleeding. Edgar Piper MD Edgar Piper MD PROCEDURE/MINOR VINITA GICAL ORDERABLES * CARDIAC EKG ORDER (04/14/2020 3:27 PM CDT) Only the most recent of5 resultswithin the time period is included. Narrative 04/14/2020 3:27 PM CDT Ordered by an unspecified provider. Scanned Document CARDIAC SERVICES ORD ERABLES * PHOSPHORUS BLOOD (04/12/2020 5:41 AM CDT) Only the most recent of44 resultswithin the time period is included. Phosphorus 2.9 2.3 - 4.7 mg/dL 04/12/2020 6:29 AM CDT [facility] Blood BLOOD SPECIMEN / Unknown Lab Venipuncture / Unknown 04/12/2020 5:41 AM CDT 04/12/2020 6:01 AM CDT Scarlet Samuel MD LAB - CHEMISTRY [facility] [address] [address] [phone] * GLUCOSE - POINT OF CARE (04/10/2020 4:14 PM CDT) Only the most recent of2 resultswithin the time period is included. Glucose WB/POC 73 70 - 115 mg/dL 04/11/2020 12:12 AM CDT [facility] Specimen Type Arterial/C apillary 04/11/2020 12:12 AM CDT [facility] Blood BLOOD SPECIMEN / Unknown 04/10/2020 4:14 PM CDT 04/11/2020 12:12 AM CDT Val Huber MD LAB - POINT OF CAR E ORDERABLES [facility] [address] [place] [id number], [facility] [phone] * ETT LINE PERFORMABLE (04/09/2020 10:53 AM CDT) Narrative Madie Obrien APRN-CRNA - 04/09/2020 10:53 AM CDT Madie Obrien APRN-CRNA 04/09/2020 10:54 AM Endotracheal Tube Placement: Patient Location: OR. Intubation Event Date/Time: 04/09/2020 10:33 AM Procedure: intubation ([id number]). Procedure Section: Sedation: under general anesthesia. Indications for Airway Management: anesthesia Procedure pretreatments used? No Induction: standard IV Patient Position: sniffing Mask Ventilation: easy. Blade Type: Bowie Blade Size: 2 Laryngoscopy View: grade 1 (full cords) Tube: endotracheal tube Tube type: cuff - inflated Tube Size (MM): 7 Depth of Insertion (CM): 21 Measured From: lips Cuff volume (mL): 6 Cuff Inflated With: air Number of Attempts: 1. Placement Verified By: direct visualization, bilateral breath sounds, chest auscultation and CO2 monitor Tube secured with: adhesive tape. Difficult Airway? No. Procedure Start Time: 04/09/2020 10:33 AM. Staff Section Anesthesia Provider: Madie Obrien, OMEGASPE[employer]CES MEDICAL SERGEANT, Performed the procedure Idris Rangel DO GENERAL ANESTHESIA ORDERABLES * ENDOSCOPY, COLON, DIAGNOSTIC (12/24/2019 9:46 AM TOOL CRIB LEAD) Report Endoscopy POC Endoscopy Department Report _ Patient Name: Federico Lambert Procedure Date: 12/24/2019 9:46 AM Date of : 1970 Classification: Outpatient Gender: Female Ethnicity: Not or Race: White _ Providers: Cathleen Rick MD, Frederick Patel (Fellow) Referring MD: Procedure: Colonoscopy Indications: Abnormal CT of the GI tract Medications: Monitored Anesthesia Care Description of Procedure: Pre-Anesthesia Assessment: - Prior to the procedure, a History and [...] anticoagulant or antiplatelet agents. ASA Grade Assessment: IV - A patient with severe systemic disease that is a constant threat to life. After reviewing the risks and benefits, the patient was deemed in satisfactory condition to undergo the procedure. After I obtained informed consent, the scope was passed under direct vision. Throughout the procedure, the patient's blood pressure, pulse, and oxygen saturations were monitored continuously. The PCF-[id number] was introduced through the anus and advanced to the transverse colon. The colonoscopy was performed without difficulty. The patient tolerated the procedure well. The quality of the bowel preparation was good. The rectum was photographed. Findings: The perianal and digital rectal examinations were normal. The recto-sigmoid colon was significantly tortuous. Advancing the scope required withdrawing the scope and replacing with the adult endoscope. A few small-mouthed diverticula were found in the recto-sigmoid colon. Biopsies were taken with a cold forceps in the descending colon for histology. Verification of patient identification for the specimen was done. Estimated blood loss was minimal. Non-bleeding internal hemorrhoids were found during retroflexion. The hemorrhoids were large. Estimated Blood Loss: Estimated blood loss was minimal. Complications: No immediate complications. Impression: - Tortuous colon. Signifcant narrowing around rectosigmoid as well as sharp splenic angle. No stricture. - Diverticulosis in the recto-sigmoid colon. - Non-bleeding internal hemorrhoids. - Biopsies were taken with a cold forceps for histology in the descending colon. Recommendation: - Patient has a contact number available for emergencies. The signs and symptoms of potential delayed complications were discussed with the patient. Return to normal activities tomorrow. Written discharge instructions were provided to the patient. - Resume previous diet. - Continue present medications. - Await pathology results. - Repeat colonoscopy for surveillance based on last complete colonoscopy. - Consider advanced endoscopist for next screening colonoscopy given 2 failed attempts at traversing colon. Attending Participation: I personally performed the entire procedure. Procedure Code(s): --- Professional --- 45396, 52, Colonoscopy, flexible; with biopsy, single or multiple Diagnosis Code(s): --- Professional --- K64.8, Other hemorrhoids K57.30, Diverticulosis of large intestine without perforation or abscess without bleeding R93.3, Abnormal findings on diagnostic imaging of other parts of digestive tract Q43.8, Other specified congenital malformations of intestine CPT copyright 2016 [employer]. All rights reserved. The codes documented in this report are preliminary and upon electrical engineer review may be revised to meet current compliance requirements. Cathleen Rick MD 12/24/2019 10:34:50 AM Note Initiated On: 12/24/2019 9:46 AM Number of Addenda: 0 [facility] [address] [facility] [place] [address] [facility] 12/24/2019 9:46 AM TOOL CRIB LEAD Tomer Patel MD GI PRO CEDURE ORDERABLES [facility] * EGD (12/24/2019 8:44 AM TOOL CRIB LEAD) Report Endoscopy POC Endoscopy Department Report __ _ Patient Name: Federico Lambert Procedure Date: 12/24/2019 8:44 AM Date of : 1970 Classification: Outpatient Gender: Female Ethnicity: Not or Race: White __ _ Providers: Cathleen Rick MD, Frederick Patel (Fellow) Referring MD: Procedure: Upper GI endoscopy Indications: Epigastric abdominal pain, Heartburn Medications: Monitored Anesthesia Care Description of Procedure: Pre-Anesthesia Assessment: - Prior to the procedure, a History and [...] anticoagulant or antiplatelet agents. ASA Grade Assessment: IV - A patient with severe systemic disease that is a constant threat to life. After reviewing the risks and benefits, the patient was deemed in satisfactory condition to undergo the procedure. After obtaining informed consent, the endoscope was passed under direct vision. Throughout the procedure, the patient's blood pressure, pulse, and oxygen saturations were monitored continuously. The GIF-H190 was introduced through the mouth, and advanced to the second part of duodenum. The upper GI endoscopy was accomplished without difficulty. The patient tolerated the procedure well. Findings: Esophagogastric landmarks were identified: the Z-line was found at 35 cm, the gastroesophageal junction was found at 35 cm and the site of hiatal narrowing was found at 38 cm from the incisors. 3cm hiatal hernia The examined esophagus was normal. Multiple pedunculated and sessile fundic gland polyps with no bleeding and no stigmata of recent bleeding were found in the stomach. This was biopsied with a cold forceps for histology. Nodular mucosa was found in the entire examined stomach. Biopsies were taken with a cold forceps for histology. Biopsies were taken with a cold forceps for Helicobacter pylori testing in a separate jar. The cardia and gastric fundus were normal on retroflexion. The examined duodenum was normal. Estimated Blood Loss: Estimated blood loss was minimal. Complications: No immediate complications. Impression: - Esophagogastric landmarks identified. 3 cm hiatal hernia - Normal esophagus. - Multiple fundic gland polyps. Biopsied. - Nodular mucosa in the entire stomach. Biopsied. Biopsies taken for H. Pylori - Normal examined duodenum. Recommendation: - Patient has a contact number available for emergencies. The signs and symptoms of potential delayed complications were discussed with the patient. Return to normal activities tomorrow. Written discharge instructions were provided to the patient. - Resume previous diet. - Continue present medications. - Await pathology results. - See the other procedure note for documentation of additional recommendations. Attending Participation: I was present and participated during the entire procedure, including non-gray portions. Procedure Code(s): --- Professional --- 25846, Esophagogastroduode noscopy, flexible, transoral; with biopsy, single or multiple Diagnosis Code(s): --- Professional --- K31.7, Polyp of stomach and duodenum K31.89, Other diseases of stomach and duodenum R10.13, Epigastric pain R12, Heartburn CPT copyright 2016 [employer]. All rights reserved. The codes documented in this report are preliminary and upon electrical engineer review may be revised to meet current compliance requirements. ____ Cathleen Rick MD 12/24/2019 10:35:52 AM Note Initiated On: 12/24/2019 8:44 AM Number of Addenda: 0 [facility] [address] [place] [address] [facility] 12/24/2019 8:44 AM TOOL CRIB LEAD Tomer Patel MD GI PRO CEDURE ORDERABLES Performing Organization Address [facility] Co de Phone Number [facility] * CULTURE RESPIRATORY LOWER (12/16/2019) Only the most recent of16 resultswithin the time period is included. Pathologist [facility] Culture [facility] Comment: CULTURE, SPUTUM/LOWER RESPIRATORY Micro Number: [id number] Test Status: Final Specimen Source: SPUTUM Specimen Quality: Adequate Gram Stain: Few White blood cells seen Few Mixed bacterial brooks Rare epithelial cells Gram stain indicates that the specimen is product sales representative of the lower respiratory tract. Result: Growth of normal oropharyngeal brooks. REPORT COMMENT: FASTING:NO Test Performed at: [facility] [id number] TUCKER CULVER MD 12/16/2019 12/16/2019 10: 50 AM TOOL CRIB LEAD Bonifacio Easton MD LAB - MICROBIOLOGY O RDERABLES Performing Organization Address [facility] Co de Phone Number [address] [address] * FRACTIONAL EXHALED NITRIC OXIDE (12/09/2019 11:20 AM TOOL CRIB LEAD) Impressions Bonifacio Easton MD - 12/09/2019 11:20 AM TOOL CRIB LEAD [facility] DEPARTMENT OF PULMONARY, CRITICAL CARE, AND SLEEP MEDICINE EXHALED NITRIC OXIDE (FeNO) Federico Lambert 12/09/2019 INTERPRETATION The measurement of fractional exhaled nitric oxide (FENO) was 10 ppb. IMPRESSION: 1. Normal fractional exhaled nitric oxide. 2. Compared to prior study on 01/14/19 this is decreased by 8 ppb. Jose J Negron MD ( Fellow) Division of Pulmonary, Critical Care, & Sleep Medicine [facility] Narrative Bonifacio Easton MD - 12/09/2019 11:20 AM TOOL CRIB LEAD Jose J Negron MD 12/09/2019 11:36 AM Procedure Note Jose J Negron MD - 12/09/2019 11:20 AM CST Images from the original note were not included. Bonifacio Easton MD RESPIRATORY THERAPY ORDERABLES * COMPLETE PFT (12/09/2019 11:19 AM TOOL CRIB LEAD) Impressions Bonifacio Easton MD - 12/09/2019 11:19 AM TOOL CRIB LEAD [facility] DEPARTMENT OF PULMONARY, CRITICAL CARE, AND SLEEP MEDICINE PULMONARY FUNCTION TEST Please see technologist's comments mentioned in the report. INTERPRETATION: SPIROMETRY: FVC: normal FEV1: decreased FEV1/FVC ratio is decreased. BRONCHODILATOR RESPONSE: There is no response to bronchodilator therapy however does not mean the patient wont benefit from bronchodilator therapy FLOW-VOLUME LOOPS: Scooping of the expiratory limbs LUNG VOLUMES: Total lung capacity and residual volume by body plethysmography are increased. Expiratory reserve volume is reduced DLCO: Unadjusted for Hb and COHb is normal DLCO: Corrected for Hb and COHb is: not able to perform AIRWAY RESISTANCE: The airway resistance is increased and the specific conductance is decreased. Airway resistance normalizes with bronchodilators ARTERIAL BLOOD GAS ANALYSIS: not performed IMPRESSION: 1. Severe Obstructive Ventilatory Limitation 2. Severe air trapping and hyperinflation are noted 3. Unadjusted DLCO is normal 4. No positive bronchodilator response, however this does not preclude the use of bronchodilators 5. Compared with previous study on 01/14/19 FEV1 has decreased by 740 mL, FVC has decreased by 640 mL, TLC has increased by 810 mL, DLCO is not significantly changed. Jose J Negron MD Pulmonary & Critical Care Fellow Division of Pulmonary, Critical Care and Sleep Medicine [facility] Pager: [phone] I have personally reviewed the test and agreed with the interpretation. Bonifacio Easton M.D., [facility]. Hermilo Bowie Endowed Chair in Internal Medicine Professor and Interim Bridge Attacher of Internal Medicine Director, Division of Pulmonary, Critical Care and Sleep Medicine Director, Adult CF Program [facility] Narrative Bonifacio Easton MD - 12/09/2019 11:19 AM TOOL CRIB LEAD Jose J Negron MD 12/09/2019 11:36 AM Procedure Note Jose J Negron MD - 12/09/2019 11:19 AM CST Images from the original note were not included. Bonifacio Easton MD RESPIRATORY THERAPY ORDERABLES * MN REMOVE CERUMEN IMPACTED W INSTR RT EAR (07/30/2019 12:03 PM CDT) Narrative Gerardo Angeles MD - 07/30/2019 12:03 PM CDT Gerardo Angeles MD 07/30/2019 12:33 PM Cerumen Removal Procedure Note Attending physician: Dr. Angeles Indications: Samter's Triad, R sided cerumen impaction Findings: After informed consent was obtained, the binocular operative microscope was brought into position with the patient reclined in examination chair. An otologic speculum was inserted into the cartilaginous external auditory canal. Impacted cerumen was seen in the R external auditory canal. Cerumen was removed with suction and alligator foreceps. Tympanostomy tube was not present in the tympanic membrane. A perforation was present in the anteroinferior quadrant of the tympanic membrane with mucoid fluid in the middle ear space. The fluid was evacuated with a 3 suction. Ciprodex drops were instilled in the ear and a cotton ball was placed in the external auditory canal. The patient tolerated the procedure well. Dr. Angeles was present for the procedure. Hermilo Painter MD Otolaryngology - Head & Neck Surgery PGY-1 07/30/2019 12:10 PM Hermilo Painter MD PROCEDURE/MINOR SURG ICAL ORDERABLES * MN ENDO NASAL SINUS BX POLYP DEBRID COREY (07/30/2019 11:48 AM CDT) Narrative Gerardo Angeles MD - 07/30/2019 11:48 AM CDT Hermilo Painter MD 07/30/2019 12:35 PM Procedure: Rigid Nasal Sinus Endoscopy Procedure date: 07/30/2019 Pre Op Dx: nasal crusting Post Op Dx: same Attending: Dr. Angeles Resident: Hermilo Painter MD Anesthesia: Bilateral Nasal Cavities sprayed with Lidocaine and Neosynephrine Detail: Rigid nasal endoscopy performed bilaterally. Septum was relatively midline. Right nasal cavity showed crusting at frontal and sphenoid sinus openings, crusting removed, there were no polyps. Purulence was suctioned from R maxillary sinus. Left nasal cavity showed crusting at frontal and sphenoid sinus openings, crusting removed, there were no polyps. Dr. Angeles performed the procedure. Hermilo Painter MD 07/30/2019 Hermilo Painter MD PROCEDURE/MINOR SURG ICAL ORDERABLES * PROC TYMPANOSTOMY WITH TUBES (07/04/2019 5:03 PM CDT) Edgar Rivero MD - 07/04/2019 5:03 PM CDT Edgar Piper MD 07/04/2019 5:04 PM Indications: AD otitis media with effusion Findings: See main note Procedure: After informed consent was obtained, the binocular operative microscope was brought into position with the patient laying semi-supine on the procedure room table. An otologic speculum was inserted into the cartilaginous external auditory canal. The anterior inferior quandtrant of the tympanic membrane was anesthetized with topical phenol. A radial incision was made in the anesthetized area. Middle ear contents was suctioned. A tiny titan tympanosotomy tube was inserted into the myringotomy using alligator forceps. The patient tolerated the procedure well. Edgar Piper MD Edgar Piper MD PROCEDURE/MINOR VINITA GICAL ORDERABLES * MN ENDO NASAL SINUS BX POLYP DEBRID LT SIDE (06/18/2019 11:05 AM CDT) Narrative Gerardo Angeles MD - 06/18/2019 11:05 AM CDT Gerardo Angeles MD 06/18/2019 11:20 AM Procedure: Rigid Nasal Sinus Endoscopy Procedure date: 06/18/2019 Pre Op Dx: nasal crusting, PND Post Op Dx: same Attending: Dr. Angeles Resident: Jam Pereira MD Anesthesia: Bilateral Nasal Cavities sprayed with Lidocaine and Neosynephrine Detail: Rigid nasal endoscopy performed bilaterally. Septum was relatively midline. Right nasal cavity showed crusting at frontal and sphenoid sinus openings, crusting removed, there were no polyps. Left nasal cavity showed crusting at frontal and sphenoid sinus openings, crusting removed, culture taken from left sphenoid sinus, there were no polyps. Dr. Angeles was present for the entire procedure. Jam Pereira MD 06/18/2019 Jam Pereira MD PROCEDURE/MINOR SURG ICAL ORDERABLES * IMAGING/RADIOLOGY/XRAY RESULTS ORDER (05/28/2019 1:23 PM CDT) Only the most recent of4 resultswithin the time period is included. Anatomical Region Laterality Modality Other Narrative 05/28/2019 1:23 PM CDT Ordered by an unspecified provider. Scanned Document IMAGING * HCG URINE QUALITATIVE - POINT OF CARE (03/11/2019 6:00 AM CDT) Only the most recent of3 resultswithin the time period is included. HCG Qual Urine Negative Negative [facility] OCT TEST[facility] QC Verified Yes Yes [facility] Urine URINE / Unknown 03/11/2019 6 :00 AM CDT Hesham Servin DO LAB - POINT OF CARE ORDERABLES Performing Organization Address City/State/[facility] Co de Phone Number [facility] [address] [place] [address] * FRACTIONAL EXHALED NITRIC OXIDE (01/16/2019 6:29 AM CDT) Impressions David Bowers MD - 01/16/2019 6:29 AM CDT [facility] DEPARTMENT OF PULMONARY, CRITICAL CARE, AND SLEEP MEDICINE EXHALED NITRIC OXIDE (FeNO) Federico Lambert 01/14/2019 INTERPRETATION The measurement of fractional exhaled nitric oxide (FENO) was 18 ppb. IMPRESSION: 1. Normal fractional exhaled nitric oxide. 2. Compared to last study done 04/03/18 (FENO) dropped from 22 to 18 ppb. Reji Canales MD 01/14/2019 2:06 PM I have personally reviewed the pulmonary function test data and made adjustment to the interpretation where necessary. David Bowers MD 01/16/2019 Narrative David Bowers MD - 01/16/2019 6:29 AM CDT Reji Canales MD 01/14/2019 2:05 PM Procedure Note Reji Canales MD - 01/14/2019 1:22 PM CDT Images from the original note were not included. Bonifacio Easton MD RESPIRATORY THERAPY ORDERABLES * SIX MINUTE WALK (01/16/2019 6:29 AM CDT) Impressions David Bowers MD - 01/16/2019 6:29 AM CDT [facility] DEPARTMENT OF PULMONARY, CRITICAL CARE, AND SLEEP MEDICINE SIX MINUTE WALK TEST Federico Navarro Petra 01/14/2019 Interpretation: The patient walked for 6 minutes on leveled ground and covered total distance of 366 meters. On the Rosemary scale at baseline, reported dyspnea was 0 and fatigue was 3. At the end of the study, the Rosemary reported dyspnea was 2 and fatigue was 3. Oxygen saturation remained 97% at the end of the test. IMPRESSION: 1. Total 6 minute walk distance is 366 meters which is above the lower limit of normal for this patient. 2. Compared to a study done on 04/03/18 the total walked distance decreased from 445 to 366 meters. Reji Canales MD ( Fellow) Division of Pulmonary, Critical Care, & Sleep Medicine [facility] P: [phone] 01/14/2019 , 2:08 PM I have personally reviewed the pulmonary function test data and made adjustment to the interpretation where necessary. David Bowers MD 01/16/2019 Narrative David Bowers MD - 01/16/2019 6:29 AM CDT Reji Canales MD 01/14/2019 2:05 PM Procedure Note Reji Canales MD - 01/14/2019 1:24 PM CDT Images from the original note were not included. Bonifacio Easton MD RESPIRATORY THERAPY ORDERABLES * (ABNORMAL) COMPLETE PFT (01/16/2019 6:29 AM CDT) David Rebollar MD - 01/16/2019 6:29 AM CDT [facility] DEPARTMENT OF PULMONARY, CRITICAL CARE, AND SLEEP MEDICINE PULMONARY FUNCTION TESTS Federico Lambert 48 year old 01/14/2019 INTERPRETATION Please see technologist's comments mentioned above. SPIROMETRY: Forced vital capacity is normal. FEV1 is mildly reduced FEV1/FVC ratio is reduced. There is no significant response to bronchodilator administration. The inspection of the patient's flow-volume loops shows abnormal configuration of the inspiratory and expiratory limbs, consistent with obstruction. LUNG VOLUMES: Lung volumes by body plethysmography reveals moderate increase in RV and normal TLC DLCO: Diffusing capacity unadjusted for Hb and COHb is within normal limits. AIRWAY RESISTANCE: The airway resistance and the specific conductance are normal. IMPRESSION: 1. Mild obstructive ventilatory limitation. 2. No significant bronchodilator response, however this does not preclude the use of bronchodilators. 3. Moderate air trapping without hyperinflation. 4. Compared to a study done 04/03/18 the patient has significant increase in FVC by 350cc, FEV1 by 290cc and a significant decrease in TLC by 1.08 L. Reji Canales MD Pulmonary & Critical Care Fellow Division of Pulmonary, Critical Care and Sleep Medicine [facility] I have personally reviewed the pulmonary function test data and made adjustment to the interpretation where necessary. David Bowers MD 01/16/2019 Narrative David Bowers MD - 01/16/2019 6:29 AM CDT Reji Canales MD 01/14/2019 2:05 PM Procedure Note Reji Canales MD - 01/14/2019 1:24 PM CDT Images from the original note were not included. Bonifacio Easton MD RESPIRATORY THERAPY ORDERABLES * MN NASAL ENDOSCOPY,DX (01/09/2019 12:50 PM CDT) Narrative Gerardo Angeles MD - 01/09/2019 12:50 PM CDT Gerardo Angeles MD 01/09/2019 12:50 PM Procedure: Rigid Nasal Endoscopy Anesthesia: Bilateral Nasal Cavities sprayed with Lidocaine and Neosynephrine Detail: Rigid nasal endoscopy performed bilaterally. Septectomy visualized. Patent post operative sinonasal passages with a minimal amount of mucous. No polyps or purulence noted. Today's endoscopy is very good for her. Sphenoid sinuses are widely patent with no debris. Only a small amount of crust superiorly on the posterior wall of the [place] cavity. Dr. Angeles was present for the entire procedure. Lorenzo Durán MD PROCEDURE/MINOR SURG ICAL ORDERABLES * ANCA SCREEN W MPO+PR3 W REFEX ANCA TITER (12/25/2018 1:30 PM TOOL CRIB LEAD) ANCA Screen Negative Negative [facility] Comment: ANCA Screen includes evaluation for p-ANCA, c-ANCA and atypical p-ANCA. A positive ANCA screen reflexes to titer and pattern(s), e.g., cytoplasmic pattern (c-ANCA), perinuclear pattern (p-ANCA), or atypical p-ANCA pattern. c-ANCA and p-ANCA are observed in vasculitis, whereas atypical p-ANCA is observed in IBD (Inflammatory Bowel Disease). Atypical p-ANCA is detected in about 55% to 80% of patients with ulcerative colitis but only 5% to 25% of patients with Crohn's disease. Myeloperoxidase Antibody <1.0 <1.0 AI [facility] Comment: Value Interpretation <1.0 AI: No Antibody Detected >or=1.0 AI: Antibody Detected Autoantibodies to myeloperoxidase (MPO) are commonly associated with the following small-vessel vasculitides: microscopic polyangiitis, polyarteritis nodosa, Churg-Michelet syndrome, necrotizing and crescentic glomerulonephritis and occasionally granulomatosis with polyangiitis (GPA, Dang's). The perinuclear IFA pattern, (p-ANCA) is based largely on autoantibody to myeloperoxidase which serves as the primary antigen. These autoantibodies are present in active disease. Proteinase 3 Antibody <1.0 <1.0 AI [facility] Comment: Value Interpretation <1.0 AI: No Antibody Detected >or=1.0 AI: Antibody Detected Autoantibodies to proteinase-3 (MN-3) are accepted as characteristic for granulomatosis with polyangiitis (GPA, Dang's), and are detectabale in 95% of the histologically proven cases. The cytoplasmic IFA pattern, (c-ANCA), is based largely on autoantibody to MN-3 which serves as the primary antigen. These autoantibodies are present in active disease. Test Performed at: [facility] [address] KHUSHBU VILLAGRAN MD,PHD Blood BLOOD SPECIMEN / Unknown 12/25/2018 1:30 PM TOOL CRIB LEAD 12/25/2018 1:33 PM TOOL CRIB LEAD Alyse Bailey MD LAB - CHEMISTRY ORD ERABLES Performing Organization Address [facility] [place] [address] * CULTURE URINE REFLEXED I (12/25/2018 1:30 PM TOOL CRIB LEAD) Reflexive Urine Culture NO CULTURE INDICATED [facility] Comment: Test Performed at: [facility] [id number] HESHAM HOOKS DO,MPH 12/25/2018 1:30 PM TOOL CRIB LEAD 12/25/2018 1:33 PM TOOL CRIB LEAD Alyse Bailey MD LAB - MICROBIOLOGY ORDERABLES Performing Organization Address [facility] [place] [address] * TSH REFLEX FREE T4 (12/25/2018 1:30 PM TOOL CRIB LEAD) Pathologist [facility] TSH with Reflex FT4 1.15 mIU/L [facility] Comment: Reference Range > or = 20 Years 0.40-4.50 Ranges First trimester 0.26-2.66 Second trimester 0.55-2.73 Third trimester 0.43-2.91 Test Performed at: [facility] [id number] HESHAM HOOKS DO,MPH Blood BLOOD SPECIMEN / Unknown 12/25/2018 1:30 PM TOOL CRIB LEAD 12/25/2018 1:33 PM TOOL CRIB LEAD Alyse Bailey MD LAB - CHEMISTRY ORD ERABLES Performing Organization Address [facility] Co de Phone Number [facility] [phone] [place] [address] * URINALYSIS W/MICROSCOPIC REFLEX TO CULTURE (12/25/2018 1:30 PM TOOL CRIB LEAD) Color UA YELLOW YELLOW [facility] Appearance CLEAR CLEAR [facility] Specific [place] UA 1.013 1.001 - 1.035 [facility] pH UA 7.0 5.0 - 8.0 [facility] Glucose UA NEGATIVE NEGATIVE [facility] Bilirubin UA NEGATIVE NEGATIVE [facility] Ketone UA NEGATIVE NEGATIVE [facility] Blood UA NEGATIVE NEGATIVE [facility] Protein UA NEGATIVE NEGATIVE [facility] Nitrite NEGATIVE NEGATIVE [facility] Leukocyte Esterase NEGATIVE NEGATIVE [facility] WBC UA NONE SEEN < OR = 5 /HPF [facility] RBC UA NONE SEEN < OR = 2 /HPF [facility] Epithelial Cell UA 0-5 < OR = 5 /HPF [facility] Bacteria UA NONE SEEN NONE SEEN /HPF [facility] Hyaline Casts NONE SEEN NONE SEEN /LPF [facility] Comment: Test Performed at: [facility] [address] [place] [address] HESHAM HOOKS DO,MPH Urine URINE SPECIMEN OBTAINED BY CLEAN CATCH PROCEDURE / Unknown 12/25/2018 1:30 PM TOOL CRIB LEAD 12/25/2018 1:33 PM TOOL CRIB LEAD Alyse Bailey MD LAB - URINALYSIS OR DERABLES Performing Organization Address [facility] [place] [address] * COMPLEMENT C1 ESTERASE INHIBITOR FUNCT ACTIVITY (12/25/2018 1:30 PM TOOL CRIB LEAD) [facility] Complement C1 Esterase Inhibitor Functional >100 % [facility] Comment: Reference Range: > OR = 68 NORMAL 41-67 EQUIVOCAL < OR = 40 ABNORMAL Less than 40% of the reference functional activity indicates a likely diagnosis of hereditary angioedema or acquired C1 inhibitor deficiency. For additional information, please refer to http://education.Paradial/faq/FAQ54 (This link is being provided for informational/educational purposes only.) Test Performed at: [facility] [address] [place] [address] NIKKI COPE MD,PHD,ILEANA Blood BLOOD SPECIMEN / Unknown 12/25/2018 1:30 PM TOOL CRIB LEAD 12/25/2018 1:33 PM TOOL CRIB LEAD Alyse Bailey MD LAB - CHEMISTRY ORD ERABLES Performing Organization Address [facility] Co de Phone Number [address] [address] * TISSUE TRANSGLUTAMINASE AB IGG (12/25/2018 1:30 PM TOOL CRIB LEAD) [facility] TTG Antibody IgG 2 <6 U/mL [facility] Comment: Value Interpretation <6 U/mL: No Antibody Detected >or=6 U/mL: Antibody Detected Test Performed at: [facility] KHUSHBU VILLAGRAN MD,PHD Blood BLOOD SPECIMEN / Unknown 12/25/2018 1:30 PM TOOL CRIB LEAD 12/25/2018 1:33 PM TOOL CRIB LEAD Alyse Bailey MD LAB - CHEMISTRY ORD ERANAINA Performing Organization Address [facility] [place] [address] * TISSUE TRANSGLUTAMINASE AB IGA (12/25/2018 1:30 PM TOOL CRIB LEAD) TTG Antibody IgA 1 <4 U/mL [facility] Comment: Value Interpretation <4 U/mL: No Antibody Detected >or=4 U/mL: Antibody Detected Test Performed at: [facility] [address] KHUSHBU VILLAGRAN MD,PHD Blood BLOOD SPECIMEN / Unknown 12/25/2018 1:30 PM TOOL CRIB LEAD 12/25/2018 1:33 PM TOOL CRIB LEAD Alyse Bailey MD LAB - SEROLOGY MINESH HAMILTON Performing Organization Address [facility] [place] [address] * SS-A/SS-B (SJOGRENS) ANTIBODY PANEL (12/25/2018 1:30 PM TOOL CRIB LEAD) Sjogren's Antibodies (SSA) <1.0 NEG <1.0 NEG [facility] Sjogren's Antibodies (SSB) <1.0 NEG <1.0 NEG AI [facility] Comment: Test Performed at: [facility] [address] [address] HESHAM HOOKS DO,MPH Blood BLOOD SPECIMEN / Unknown 12/25/2018 1:30 PM TOOL CRIB LEAD 12/25/2018 1:33 PM TOOL CRIB LEAD Alyse Bailey MD LAB - CHEMISTRY ORD ERANAINA Performing Organization Address [facility] [place] [address] * (ABNORMAL) THYROID PEROXIDASE ANTIBODY (12/25/2018 1:30 PM TOOL CRIB LEAD) Thyroid Peroxidase TPO Antibody 21(H) <9 IU/mL [facility] Comment: Test Performed at: [facility] [address] [address] HESHAM HOOKS DO,MPH Blood BLOOD SPECIMEN / Unknown 12/25/2018 1:30 PM TOOL CRIB LEAD 12/25/2018 1:33 PM TOOL CRIB LEAD Alyse Bailey MD LAB - CHEMISTRY ORD GumGumBLES Performing Organization Address [facility] [place] [address] * (ABNORMAL) THYROGLOBULIN ANTIBODY (12/25/2018 1:30 PM TOOL CRIB LEAD) Thyroglobulin Antibody 3(H) < or = 1 IU/mL [facility] Comment: Test Performed at: [facility] [address] [address] HESHAM HOOKS DO,MPH Blood BLOOD SPECIMEN / Unknown 12/25/2018 1:30 PM TOOL CRIB LEAD 12/25/2018 1:33 PM TOOL CRIB LEAD Alyse Bailey MD LAB - CHEMISTRY ORD GumGumBLES Performing Organization Address [facility] [place] [address] * (ABNORMAL) VITAMIN D 25-HYDROXY (12/25/2018 1:30 PM TOOL CRIB LEAD) Vitamin D, 25 Hydroxy 6(L) 30 - 100 ng/mL [facility] Comment: Vitamin D Status 25-OH Vitamin D: Deficiency: <20 ng/mL Insufficiency: 20 - 29 ng/mL Optimal: > or = 30 ng/mL For 25-OH Vitamin D testing on patients on D2-supplementation and patients for whom quantitation of D2 and D3 fractions is required, the QuestAssureD(TM) 25-OH VIT D, (D2,D3), LC/MS/MS is recommended: order code 16814 (patients >2yrs). For more information on this test, go to: http://education.Paradial/faq/ELE722 (This link is being provided for informational/educational purposes only.) Test Performed at: [employer] [address] [employer] [address] [facility] [place] [address] HESHAM HOOKS DO,MPH Blood BLOOD SPECIMEN / Unknown 12/25/2018 1:30 PM TOOL CRIB LEAD 12/25/2018 1:33 PM TOOL CRIB LEAD Alyse Bailey MD LAB - CHEMISTRY ORD ERABLES Performing Organization Address [facility] [place] [address] * FERRITIN (12/25/2018 1:30 PM TOOL CRIB LEAD) Ferritin 11 10 - 232 ng/mL [facility] Comment: Test Performed at: [facility] [address] [place] [address] HESHAM HOOKS DO,MPH Blood BLOOD SPECIMEN / Unknown 12/25/2018 1:30 PM TOOL CRIB LEAD 12/25/2018 1:33 PM TOOL CRIB LEAD Alyse Bailey MD LAB - CHEMISTRY ORD ERABLES Performing Organization Address [facility] [place] [address] * XR ABD OBSTR SERIES W CHEST 1VW (10/18/2018 9:25 AM TOOL CRIB LEAD) Anatomical Region Laterality Modality Abdomen Radiographic Colette ging 10/18/2018 9:18 AM TOOL CRIB LEAD Impressions 10/18/2018 9:23 AM TOOL CRIB LEAD IMPRESSION: No acute pulmonary process. No evidence of abdominal obstruction. Dictated by Juli Nava MD (workforce development vice president). I, Dr. JOÃO DAVID have personally reviewed and interpreted this examination/study. This report was electronically signed by JOÃO DAVID on 10/18/2018 9:23 AM . Narrative 10/18/2018 9:23 AM TOOL CRIB LEAD EXAMINATION: XR ABD OBSTR SERIES W CHEST 1VW HISTORY: K59.00: Constipation, unspecified constipation type COMPARISON: Comparison made to chest radiograph dated 03/31/2016. FINDINGS: Chest: A right internal jugular central venous port catheter tip overlies the superior vena cava. There is bibasilar atelectasis.There is no focal consolidation, pleural effusion, or pneumothorax. The cardiomediastinal silhouette is normal. The visible bony thorax is intact. ABDOMEN: Hernia repair clips overlie the left abdomen. There are no dilated bowel loops. No pneumoperitoneum or pathological calcification is seen. The visible osseous structures are intact. Procedure Note João David, - 10/18/2018 EXAMINATION: XR ABD OBSTR SERIES W CHEST 1VW HISTORY: K59.00: Constipation, unspecified constipation type COMPARISON: Comparison made to chest radiograph dated 03/31/2016. FINDINGS: Chest: A right internal jugular central venous port catheter tipoverlies the superior vena cava. There is bibasilar atelectasis.There is no focal consolidation, pleural effusion, or pneumothorax. The cardiomediastinal silhouette is normal. The visible bony thorax is intact. ABDOMEN: Hernia repair clips overlie the left abdomen. There are no dilated bowel loops. No pneumoperitoneum or pathological calcificationis seen. The visible osseous structures are intact. IMPRESSION: No acute pulmonary process. No evidence of abdominal obstruction. Dictated by Juli Nava MD (workforce development vice president). I, Dr. JOÃO DAVID have personally reviewed and interpreted this examination/study. This report was electronically signed by JOÃO DAVID on 10/18/2018 9:23 AM . Val Huber MD DIAGNOSTIC IMAGING ORDERABLES * MN ENDO NASAL SINUS BX POLYP DEBRID COREY (09/26/2018 8:36 AM TOOL CRIB LEAD) Narrative Gerardo Angeles MD - 09/26/2018 8:36 AM TOOL CRIB LEAD Gerardo Angeles MD 09/26/2018 8:36 AM Procedure: Nasal Endoscopy With Debridement Anesthesia: Bilateral Nasal Cavity Sprayed with Lidocaine and Phenylephrine Detail: Rigid nasal endoscopy was performed in bilateral nasal cavity. Removed crusting and thick secretions with suction and forceps. Was then able to visualize open septectomy. This required a very large removal of dried crusts and allergic mucin. Right sphenoid sinus is now open and I suction a moderate amount of debris. Left sphenoid sinus widely open as well with only a very small amount of debris. Also suction a small amount of debris from within bilateral maxillary sinus. Lothrop cavity is much more open. I removed as much debris as patient would tolerate. Gerardo Angeles MD PROCEDURE/MINOR VINITA GICAL ORDERABLES * FL LOWER GI (09/10/2018 9:24 AM TOOL CRIB LEAD) Anatomical Region Laterality Modality Abdomen Radiographic Colette ging 09/10/2018 9:56 AM TOOL CRIB LEAD Impressions 09/10/2018 12:31 PM TOOL CRIB LEAD IMPRESSION: No evidence of stricture on this focused exam of the descending colon and sigmoid. Report dictated by Lai Silva M.D. I, Dr. JEANNIE PRIEST M.D. have personally reviewed and interpreted this examination/study. This report was electronically signed by JEANNIE PRIEST M.D. on 09/10/2018 12:31 PM . Narrative 09/10/2018 12:31 PM TOOL CRIB LEAD EXAMINATION: FL LOWER GI HISTORY: K56.699: Colon stricture CT done 08/05/2018 raising a question of stricture at the distal descending colon. History of left upper quadrant pain and chronic constipation. COMPARISON: None. FLUOROSCOPY TIME: 0.8 minutes TECHNIQUE: Following placement of a rectal tube, the colon was opacified with dilute Gastrografin. Fluoroscopic and overhead images were obtained. FINDINGS: The exam is done without preparation of the colon. A large amount of stool is seen throughout the colon with less stool in the sigmoid and rectum. A focused exam was done to rule out stricture in the distal descending colon. The sigmoid and distal descending are redundant. No stricture is demonstrated. Occasional spasm was observed. No diverticulosis is seen in the examined portion of the colon. Retained stool precludes evaluation for mass or polyp. After the exam, the patient developed skin redness and decreased blood pressure. For this reason, she was sent to the emergency room. Procedure Note Jeannie Priest MD - 09/10/2018 EXAMINATION: FL LOWER GI HISTORY: K56.699: Colon stricture CT done 08/05/2018 raising a questionof stricture at the distal descending colon. History of left upper quadrant pain and chronic constipation. COMPARISON: None. FLUOROSCOPY TIME: 0.8 minutes TECHNIQUE: Following placement of a rectal tube, the colon was opacified withdilute Gastrografin. Fluoroscopic and overhead images were obtained. FINDINGS: The exam is done without preparation of the colon. A large amount ofstool is seen throughout the colon with less stool in the sigmoid and rectum.A focused exam was done to rule out stricture in the distal descending colon. The sigmoid and distal descending are redundant. No stricture is demonstrated. Occasional spasm was observed. No diverticulosis is seenin the examined portion of the colon. Retained stool precludes evaluationfor mass or polyp. After the exam, the patient developed skin redness and decreased blood pressure. For this reason, she was sent to the emergency room. IMPRESSION: No evidence of stricture on this focused exam of the descending colonand sigmoid. Report dictated by Lai Silva M.D. I, Dr. JEANNIE PRIEST M.D. have personally reviewed and interpreted this examination/study. This report was electronically signed by JEANNIE PRIEST M.D. on09/10/2018 12:31 PM . Vishal Zhou MD FLUOROSCOPY ORDERABL ES * PFT (08/14/2018 1:21 PM CDT) Narrative 08/14/2018 1:21 PM CDT Ordered by an unspecified provider. Scanned Document SCANNING ONLY * (ABNORMAL) CREATININE BLOOD - POCT (IP) [facility] (08/05/2018 9:55 AM CDT) Creatinine POCT 1.05 0.3 - 1.3 mg/dL [facility] eGFR POCT 59(A) 60 ml/min [facility] Blood BLOOD SPECIMEN / Unknown 08/05/2018 9:55 AM CDT Vishal Zhou MD LAB - POINT OF CARE ORDERABLES [facility] [address] [phone] * MN ENDO NASAL SINUS BX POLYP DEBRID COREY (07/03/2018 1:31 PM CDT) Narrative Gerardo Angeles MD - 07/03/2018 1:31 PM CDT Gerardo Angeles MD 07/03/2018 12:51 PM Procedure: Nasal Endoscopy With Debridement Anesthesia: Bilateral Nasal Cavity Sprayed with Lidocaine and Phenylephrine Detail: Rigid nasal endoscopy was performed in bilateral nasal cavity. Removed crusting and thick secretions with suction and forceps. Was then able to visualize the nasal cavities and sinuses. The bilateral maxillary, ethmoid, sphenoid, and frontal sinuses were open, however there was thick mucin particularly in the right sphenoid. Less mucin the the frontals and ethmoids. It took extensive time to debride. Dr. Angeles was present for the entire procedure. Theodore Hairston MD PROCEDURE/MINOR SURG ICAL ORDERABLES * COMPLETE PFT (04/07/2018 10:35 AM CDT) Impressions David Bowers MD - 04/07/2018 10:35 AM CDT [facility] DEPARTMENT OF PULMONARY, CRITICAL CARE, AND SLEEP MEDICINE PULMONARY FUNCTION TESTS Federico Lambert 04/07/2018 INTERPRETATION Please see technologist's comments mentioned above. SPIROMETRY: FVC is Normal. FEV1 is Low . FEV1/FVC ratio is Low . There is no significant response to bronchodilator administration. The inspection of the patient's flow-volume loops shows normal configuration of the inspiratory and expiratory limbs. LUNG VOLUMES: TLC is High. RV is High. DLCO: Diffusing capacity unadjusted for Hb and COHb is Normal. AIRWAY RESISTANCE: The airway resistance is High and the specific conductance is Low . IMPRESSION: 1. Moderate obstructive ventilatory limitation 2. There is no significant response to bronchodilator administration. This does not preclude the use of bronchodilator therapy. 3. There is mild hyperinflation and severe air trapping. 4. The airway resistance is High and the specific conductance is Low. 5. Compared to previous study from 04/17/2017, there is a significant increase in FVC and FEV1. Arcenio Bowie MD I have personally reviewed the pulmonary function test data and made adjustment to the interpretation where necessary. David Bowers MD 04/10/2018 Narrative David Bowers MD - 04/07/2018 10:35 AM CDT Arcenio Bowie MD 04/07/2018 10:35 AM Procedure Note Arcenio Bowie MD - 04/03/2018 1:00 PM CDT Images from the original note were not included. Bonifacio Easton MD RESPIRATORY THERAPY ORDERABLES * FRACTIONAL EXHALED NITRIC OXIDE (04/07/2018 10:35 AM CDT) Impressions David Bowers MD - 04/07/2018 10:35 AM CDT [facility] DEPARTMENT OF PULMONARY, CRITICAL CARE, AND SLEEP MEDICINE EXHALED NITRIC OXIDE (FeNO) Federico Lambert 04/07/2018 INTERPRETATION The measurement of fractional exhaled nitric oxide (FENO) was 22 ppb. IMPRESSION: 1. Patient has high-normal fractional exhaled nitric oxide. This may be suggestive of reactive airway disease. Clinical correlation is recommended. 2. The previous test from 09/14/2016 showed a FeNO of 49. Arcenio Bowie MD I have personally reviewed the pulmonary function test data and made adjustment to the interpretation where necessary. David Bowers MD 04/10/2018 Narrative David Bowers MD - 04/07/2018 10:35 AM CDT Arcenio Bowie MD 04/07/2018 10:35 AM Procedure Note Arcenio Bowie MD - 04/03/2018 1:00 PM CDT Images from the original note were not included. Bonifacio Easton MD RESPIRATORY THERAPY ORDERABLES * SIX MINUTE WALK (04/07/2018 10:35 AM CDT) Impressions David Bowers MD - 04/07/2018 10:35 AM CDT [facility] DEPARTMENT OF PULMONARY, CRITICAL CARE, AND SLEEP MEDICINE SIX MINUTE WALK TEST Federico Lambert 04/07/2018 Interpretation: The patient walked for 6 minutes on room air and covered total distance of 445 meters. On the Rosemary scale at baseline, reported dyspnea was 0 and fatigue was 0. At the end of the study, the Rosemary reported dyspnea was 4 and fatigue was 4. There were no additional symptoms reported and oxygen saturation remained >96% throughout the test. IMPRESSION: 1. Total 6 minute walk distance is 445 meters, which is ABOVE the lower limit of normal of 376 meters for this patient. 2. Previous 6MW test on 04/17/2017, the patient's 6MW distance has 400 meters. Arcenio Bowie MD I have personally reviewed the pulmonary function test data and made adjustment to the interpretation where necessary. David Bowers MD 04/10/2018 Narrative David Bowers MD - 04/07/2018 10:35 AM CDT Arcenio Bowie MD 04/07/2018 10:35 AM Procedure Note Arcenio Bowie MD - 04/03/2018 1:00 PM CDT Images from the original note were not included. Bonifacio Easton MD RESPIRATORY THERAPY ORDERABLES * MN NASAL ENDOSCOPY,DX (03/20/2018 3:33 PM CDT) Gerardo Rudolph MD - 03/20/2018 3:33 PM CDT Gerardo Angeles MD 03/20/2018 3:15 PM Procedure: Rigid Nasal Endoscopy Anesthesia: Bilateral Nasal Cavities sprayed with Lidocaine and Neosynephrine Detail: Rigid nasal endoscopy performed bilaterally. Open maxillary, ethmoid and sphenoid cavities bilaterally. Some allergic mucin and dried crusting in the common Lothrop cavity that was removed. Overall improved from prior exams. Dr. Angeles was present for the entire procedure Shiva Buchanan MD PROCEDURE/MINOR SURG ICAL ORDERABLES * MN BIOPSY OF SKIN LESION (02/12/2018 8:41 AM CDT) Ruby Santos MD - 02/12/2018 8:41 AM CDT Rachel Ramirez MD 02/12/2018 8:41 AM Risks, benefits and alternatives to punch biopsy were discussed with the patient. Verbal consent was obtained. Location: L neck Punch biopsy: 4mm Skin prep: Alcohol Anesthesia: 1% lidocaine with epinephrine Closure: 4-0 nylon suture Dressing and wound care discussed. Patient agrees to phone call for results and message if not available. Rachel Ramirez MD Dermatology Resident, PGY-4 Ruby Manzano MD PROCEDURE/MINOR SURG ICAL ORDERABLES * (ABNORMAL) CULTURE AEROBIC (08/15/2017 9:48 AM CDT) Only the most recent of7 resultswithin the time period is included. Culture Aerobic ESCHERICHIA COLI(A) [facility] Comment: Heavy Growth Escherichia Coli Further Identified as Multi-drug Resistant Organism. Patient MUST be placed on Contact Isolation Precautions. Culture Aerobic MULTI-DRUG RESISTANT ORGANISM(A) [facility] Comment:Multi-Drug Resistant Organism Culture Aerobic PSEUDOMONAS AERUGINOSA(A) [facility] Comment:Heavy Growth Pseudom onas Aeruginosa Gram Stain [facility] Comment:QNS-1 swab. Fluid specimen (specimen) 08/15/2017 9:48 AM CDT 08/16/2017 3:36 PM CDT Narrative [facility] - 08/19/2017 9:13 AM CDT sinus Specimen Type->Body Fluid Gram Stains are routinely screened for the presence of Polymorphonuclear Cells. Organism Antibiotic Method Susceptibility Escherichia coli Amikacin SUSCEPTIBILITY <=2: Sensitive Escherichia coli Ampicillin SUSCEPTIBILITY >=32: Resistant Escherichia coli Ampicillin-sulbactam SUSCEPTIBILITY >=32: Resistant Escherichia coli Cefepime SUSCEPTIBILITY >=64: Resistant Escherichia coli Gentamicin SUSCEPTIBILITY >=16: Resistant Escherichia coli Imipenem SUSCEPTIBILITY <=0.25: Sensitive Escherichia coli Levofloxacin SUSCEPTIBILITY >=8: Resistant Escherichia coli Piperacillin-tazobactam SUSCEPTIBILIT Y 16: Sensitive Escherichia coli Tobramycin SUSCEPTIBILITY >=16: Resistant Escherichia coli Trimethoprim-sulfame thoxazo le SUSCEPTIBILITY >=320: Resistant Escherichia coli Extended-Spectrum Beta-Lactamase SUSCEPTIBILITY Pos: + Pseudomonas aeruginosa Amikacin SUSCEPTIBILITY <=2: Sensitive Pseudomonas aeruginosa Cefepime SUSCEPTIBILITY 2: Sensitive Pseudomonas aeruginosa Ceftazidime SUSCEPTIBILITY 4: Sensitive Pseudomonas aeruginosa Ciprofloxacin SUSCEPTIBILITY <=0.25: Sensitive Pseudomonas aeruginosa Gentamicin SUSCEPTIBILITY <=1: Sensitive Pseudomonas aeruginosa Imipenem SUSCEPTIBILITY <=0.25: Sensitive Pseudomonas aeruginosa Piperacillin-tazobactam SUSCEPT IBILITY 8: Sensitive Pseudomonas aeruginosa Tobramycin SUSCEPTIBILITY <=1: Sensitive Gerardo Angeles MD LAB - MICROBIOLOGY ORDERABLES [facility] [address] [phone] * COMPLETE PFT W/WO BRONCHODILATOR (04/18/2017 11:12 AM CDT) Impressions [facility] - 04/18/2017 11:12 AM CDT [facility] DEPARTMENT OF PULMONARY, CRITICAL CARE, AND SLEEP MEDICINE PULMONARY FUNCTION TESTS Federico Masle 46 y.o. 04/17/2017 INTERPRETATION Please see technologist's comments mentioned above. SPIROMETRY: Forced vital capacity is normal. FEV1 is reduced. FEV1/FVC ratio is reduced. There is no significant response to bronchodilator administration. The inspection of the patient's flow-volume loops shows normal configuration of the inspiratory limbs and concave expiratory limbs. LUNG VOLUMES: Lung volumes by body plethysmography show severely increased residual volumes and mildly increased total lung capacity. DLCO: Diffusing capacity adjusted for Hb and COHb is within normal limits. AIRWAY RESISTANCE: The airway resistance is increased and the specific conductance is reduced. ARTERIAL BLOOD GAS ANALYSIS: ABG drawn on room air revealed mildly decrease PO2, chronic respiratory alkalosis IMPRESSION: 1. Severe obstructive ventilatory limitation. 2. There is no significant response to bronchodilator administration. This does not preclude the use of bronchodilator therapy if clinically indicated. 3. Severe air trapping with mild hyperinflation. 4. Chronic respiratory alkalosis In comparison to the test performed on 09/14/2016, there was a significant decrease in TLC by 1020 ml. There was no significant change in FEV1, FVC and DLCO. Darren Lawson MD Pulmonary & Critical Care Fellow Division of Pulmonary, Critical Care and Sleep Medicine [facility] Pager: [phone] PULMONARY PFT ATTENDING NOTE I reviewed and revised the PFT results accordingly and agree with Dr. Lawson's findings and impression. James Calderon MD, [facility], [facility], [facility] [place], [facility] Sleep Disorders [place] Skiff Operator of Internal Medicine Division of Pulmonary, Critical Care, and Sleep Medicine [facility] Narrative Procedure Note Provider, MD Brianna - 04/05/2018 IMPRESSION [facility] DEPARTMENT OF PULMONARY, CRITICAL CARE, AND SLEEP MEDICINE PULMONARY FUNCTION TESTS Federico Navarro Petra 46 y.o. 04/17/2017 INTERPRETATION Please see technologist's comments mentioned above. SPIROMETRY: Forced vital capacity is normal. FEV1 is reduced. FEV1/FVC ratio is reduced. There is no significant response to bronchodilator administration. The inspection of the patient's flow-volume loops shows normalconfiguration of the inspiratory limbs and concave expiratory limbs. LUNG VOLUMES: Lung volumes by body plethysmography show severely increasedresidual volumes and mildly increased total lung capacity. DLCO: Diffusing capacity adjusted for Hb and COHb is within normallimits. AIRWAY RESISTANCE: The airway resistance is increased and the specificconductance is reduced. ARTERIAL BLOOD GAS ANALYSIS: ABG drawn on room air revealed mildlydecrease PO2, chronic respiratory alkalosis IMPRESSION: 1. Severe obstructive ventilatory limitation. 2. There is no significant response to bronchodilator administration.This does not preclude the use of bronchodilator therapy if clinicallyindicated. 3. Severe air trapping with mild hyperinflation. 4. Chronic respiratory alkalosis In comparison to the test performed on 09/14/2016, there was a significantdecrease in TLC by 1020 ml. There was no significant change in FEV1, FVCand DLCO. Darren Lawson MD Pulmonary & Critical Care Fellow Division of Pulmonary, Critical Care and Sleep Medicine [facility] Pager: [phone] PULMONARY PFT ATTENDING NOTE I reviewed and revised the PFT results accordingly and agree with 's findings and impression. James Calderon MD, [facility], [facility], [facility] [place], [facility] Sleep Disorders Center [employer] Operator of Internal Medicine Division of Pulmonary, Critical Care, and Sleep Medicine [facility] Bonifacio Easton MD RESPIRATORY THERAPY ORDERABLES [facility] * (ABNORMAL) BLOOD GASES ART - PFT (04/17/2017 8:29 AM CDT) Only the most recent of3 resultswithin the time period is included. pH Arterial 7.44 7.35 - 7.45 [facility] pCO2 Arterial 30(L) 35 - 45 mmHg [facility] pO2 Arterial 70(L) 77 - 101 mmHg [facility] HCO3 Arterial 20.2(L) 22.0 - 26.0 mmol/L [facility] TCO2 Arterial 21.1(L) 25.0 - 29.0 mmol/L [facility] Base Excess Arterial -2.5(L) -2.0 - 2.0 mmol/L [facility] Hemoglobin Arterial 12.6 12.0 - 15.5 g/dL [facility] Oxyhemoglobin Arterial 94.7(L) 95.0 - 100.0 % [facility] Carboxyhemoglobin 1.3 0.0 - 3.0 % [facility] Methemoglobin 0.0 0.0 - 2.0 % [facility] FI O2 Arterial 21.0 % [facility] Blood specimen (specimen) (Blood Line - Arterial) 04/17/2017 8:29 AM CDT 04/17/2017 9:24 AM CDT Narrative [facility] - 04/17/2017 9:27 AM CDT Room Air (21%)->Yes FiO2->.21 Bonifacio Easton MD LAB - BLOOD GASES OR DERABLES Performing Organization Address City/[facility]/ZIP Co de Phone Number [address] [phone] * HCG URINE QUALITATIVE - POCT (IP) [facility] (03/19/2017 7:27 AM CDT) Only the most recent of3 resultswithin the time period is included. Pathologist [facility] NEGATIVE [facility] ([facility]) Comment:Airplane Refueler: HARIKA VASQUEZ 03/19/2017 7:27 AM CDT Gerardo Angeles MD LAB - POINT OF CARE ORDERABLES Performing Organization Address [facility] Co de Phone Number [facility] ([facility]) * (ABNORMAL) BLOOD GASES ART (03/19/2017 7:02 AM CDT) Only the most recent of4 resultswithin the time period is included. Pathologist [facility] EPOC Potassium POCT 3.4(L) 3.5 - 4.5 mmol/L [facility] ([facility]) Comment: Sample Type: Venous Airplane Refueler: NUHA PRINGLE 03/19/2017 7:02 AM CDT Gerardo Angeles MD LAB - BLOOD GASES O RDERABLES Performing Organization Address City/[facility]/ZIP Co de Phone Number [facility] ([facility]) * METHICILLIN RAPID TEST (09/27/2016 3:00 PM TOOL CRIB LEAD) Only the most recent of5 resultswithin the time period is included. Methicillin Rapid Test Negative Negative [facility] Fluid specimen (specimen) 09/27/2016 3:00 PM TOOL CRIB LEAD 09/27/2016 3:06 PM TOOL CRIB LEAD Narrative [facility] - 09/28/2016 10:06 AM TOOL CRIB LEAD Rt Nasal Cavity Methicillin Susceptible Staphylococcus aureus (MSSA) by penicillin binding protein immunoassay. Conventional susceptibility testing to follow. Gerardo Angeles MD LAB - MICROBIOLOGY ORDERABLES [facility] [address] [place] [address], [facility] [phone] * COMPLETE PFT W/WO BRONCHODILATOR (09/14/2016 10:09 AM TOOL CRIB LEAD) Impressions [facility] - 09/14/2016 10:09 AM TOOL CRIB LEAD [facility] DEPARTMENT OF PULMONARY, CRITICAL CARE, AND SLEEP MEDICINE PULMONARY FUNCTION TESTS Federico Lambert 09/18/2016 INTERPRETATION SPIROMETRY: Forced vital capacity is normal. FEV1 is decreased. FEV1/FVC ratio is decreased. Response to bronchodilator therapy:no The inspection of the patient's flow-volume loops shows normal configuration of the inspiratory and scooping expiratory limbs. LUNG VOLUMES: Lung volumes by body plethysmography are :Elevated RV/TLC DLCO: Diffusing capacity adjusted for Hb and COHb is normal AIRWAY RESISTANCE: The airway resistance elevated and the specific conductance reduced ARTERIAL BLOOD GAS ANALYSIS: ABG drawn on RA revealed hypoxia and compensated metabolic acidosis. IMPRESSION: 1.severe obstructive ventilatory limitation. There is no significant response to bronchodilator therapy. This does not preclude the use of bronchodilator therapy if clinically indicated. 2.Mild hyperinflation 3.severe air trapping 4. Hypoxia and partially compensated metabolic acidosis 5.Eelvated airway resistance and reduced specific conductance. 6.Comapred to study done on 04/03/16, no significant change in FEV1 and FVC. Compared to study done on 03/20/16, TLC increased by 1050 ml, RV increased by 800 ml and no significant change in DLCO. Dr.Venkatkiran Anaya MD Pulmonary / Critical Care Fellow Division of Pulmonary, Critical Care, & Sleep Medicine [facility] I have reviewed this study and agree with the interpretation by Dr. Julien. Elvis Avilez M.D. [facility] Operator of Internal Medicine Division of Pulmonary, Critical Care and Sleep Medicine [facility] Narrative Procedure Note Provider, MD Brianna - 04/05/2018 IMPRESSION [facility] DEPARTMENT OF PULMONARY, CRITICAL CARE, AND SLEEP MEDICINE PULMONARY FUNCTION TESTS Federico Lambert 09/18/2016 INTERPRETATION SPIROMETRY: Forced vital capacity is normal. FEV1 is decreased. FEV1/FVC ratio is decreased. Response to bronchodilator therapy:no The inspection of the patient's flow-volume loops shows normalconfiguration of the inspiratory and scooping expiratory limbs. LUNG VOLUMES: Lung volumes by body plethysmography are :Elevated RV/TLC DLCO: Diffusing capacity adjusted for Hb and COHb is normal AIRWAY RESISTANCE: The airway resistance elevated and the specificconductance reduced ARTERIAL BLOOD GAS ANALYSIS: ABG drawn on RA revealed hypoxia andcompensated metabolic acidosis. IMPRESSION: 1.severe obstructive ventilatory limitation. There is no significantresponse to bronchodilator therapy. This does not preclude the use ofbronchodilator therapy if clinically indicated. 2.Mild hyperinflation 3.severe air trapping 4. Hypoxia and partially compensated metabolic acidosis 5.Eelvated airway resistance and reduced specific conductance. 6.Comapred to study done on 04/03/16, no significant change in FEV1 and FVC.Compared to study done on 03/20/16, TLC increased by 1050 ml, RV increasedby 800 ml and no significant change in DLCO. Dr.Venkatkiran Anaya MD Pulmonary / Critical Care Fellow Division of Pulmonary, Critical Care, & Sleep Medicine [facility] I have reviewed this study and agree with the interpretation by . Elvis Avilez M.D. [facility] Operator of Internal Medicine Division of Pulmonary, Critical Care and Sleep Medicine [facility] Bonifacio Easton MD RESPIRATORY THERAPY ORDERABLES [facility] * (ABNORMAL) DIFFERENTIAL MANUAL (04/01/2016 3:47 AM CDT) Only the most recent of16 resultswithin the time period is included. WBC (corrected for NRBC) 12.1 10 3/uL [facility] Total Cell Count 100 [facility] Neutrophils Absolute Manual 10.29(H) 1.60 - 7.00 10 3/uL [facility] Comment:(BANDS+SEGS) x WBC = NEUT # (ANC) Lymphocyte Absolute Manual 1.33 0.80 - 2.90 10 3/uL [facility] Monocytes Absolute Manual 0.24 0.14 - 0.66 10 3/uL [facility] Eosinophils Absolute Manual 0.24(H) 0.00 - 0.22 10 3/uL [facility] Band % Manual 3 0 - 10 % [facility] Neutrophil % Manual 82(H) 30 - 60 % [facility] Lymphocyte % Manual 11(L) 20 - 45 % [facility] Monocytes % Manual 2 2 - 10 % [facility] Eosinophils % Manual 2 1 - 6 % [facility] Platelet Estimate Adequate Adequate [facility] RBC Morphology Normal [facility] Blood specimen (specimen) BLOOD SPECIMEN / Unknown 04/01/2016 3:47 AM CDT 04/01/2016 4:31 AM CDT Jose Bowie MD LAB - HEMATOLOGY ORD ERABLES [address] [phone] * PT-INR [facility] (03/31/2016 11:15 PM CDT) Only the most recent of13 resultswithin the time period is included. PT 14.7 12.1 - 14.8 Seconds [facility] INR 1.2 See Comment [facility] Comment: Suggested therapeutic range for low-intensity coumadin therapy for venous thromboembolism prophylaxis is an INR of 2.0-3.0. For high risk patients (Mitral Valve Prosthesis, Atrial Fibrillation, history of TIA/stroke), suggested prophylactic therapeutic range is an INR of 2.5-3.5. Blood specimen (specimen) BLOOD SPECIMEN / Unknown 03/31/2016 11:15 PM CDT 03/31/2016 11:26 PM CDT Narrative [facility] - 03/31/2016 11:42 PM CDT Is patient on Heparin, Argatroban or Dabigatran?->N Jose Bowie MD LAB - COAGULATION OR DERABLES [facility] [address] [phone] * STREP PNEUMONIAE ANTIGEN URINE/CSF (03/31/2016 10:20 PM CDT) Specimen Source Urine [facility] ([facility]) Streptococcus pneumoniae Antigen Negative Negative [facility] ([facility]) Body Fluid Culture Sterile Not Indicated [facility] ([facility]) Organism Not indicated. [facility] ([facility]) Please Note Comment [facility] ([facility]) Comment: [employer] guidelines require a culture to be performed on CSF specimens negative by bacterial antigen testing (CAP [id number]). 03/31/2016 10:2 0 PM CDT 03/31/2016 10:29 PM CDT Narrative [facility] ([facility]) - 04/03/2016 3:13 PM CDT Performed at: [address] [place] [address] [id number] Adoption Agent: Hesham Stout MD, Phone: [phone] Jose Bowie MD LAB - MICROBIOLOGY O RDERABLES [facility] ([facility]) * LEGIONELLA ANTIGEN URINE (03/31/2016 10:20 PM CDT) Only the most recent of3 resultswithin the time period is included. Legionella pneumophila Antigen Urine Negative Negative [facility] ([facility]) Comment: Sample is negative for the presence of L. pneumophila serogroup 1 antigen in urine, suggesting no recent or current infection. Legionnaires' Disease cannot be ruled out since other serogroups and species may also cause disease. INTERPRETIVE INFORMATION: Legionella pneumophila Antigen, Urine This assay detects Legionella pneumophila serogroup one (1) antigen. Urine specimen (specimen) URINE SPECIMEN OBTAINED BY CLEAN CATCH PROCEDURE / Unknown 03/31/2016 10:20 PM CDT 03/31/2016 10:29 PM CDT Jose Bowie MD LAB - MICROBIOLOGY O RDERABLES [facility] ([facility]) * HISTOPLASMA GALACTOMANNAN AG URINE (03/31/2016 10:20 PM CDT) Urine specimen (specimen) URINE SPECIMEN OBTAINED BY CLEAN CATCH PROCEDURE / Unknown 03/31/2016 10:20 PM CDT 03/31/2016 10:29 PM CDT Jose Bowie MD LAB - URINE CHEMISTR Y ORDERABLES Performing Organization Address City/[facility]/ZIP Co de Phone Number [facility] [address] * (ABNORMAL) CULTURE CYSTIC FIBROSIS PULMONARY (03/31/2016 9:45 PM CDT) Culture CF Sputum Growth of respiratory brooks. [facility] Culture CF Sputum STAPHYLOCOCCUS AUREUS(A) [facility] Comment: Moderate Growth Staphylococcus Aureus Organism further identified as Methicillin Susceptible Staphylococcus aureus (MSSA) by penicillin binding protein immunoassay. Culture CF Sputum HAEMOPHILUS INFLUENZAE(A) [facility] Comment:Moderate Growth Haem ophilus Influenzae Gram Stain Few-Moderate Epithelial Cells [facility] Gram Stain Moderate Polymorphonuclear Cells [facility] Gram Stain Many Gram Positive cocci in pairs, chains, and clusters [facility] Gram Stain Many Gram Positive bacilli [facility] Gram Stain Many Gram Negative bacilli [facility] Sputum specimen (specimen) SPUTUM / Unknown 03/31/2016 9:45 PM CDT 03/31/2016 9:55 PM CDT Narrative [facility] - 04/04/2016 10:18 AM CDT Gram Stains are routinely screened for the presence of Polymorphonuclear Cells. Organism Antibiotic Method Susceptibility Staphylococcus aureus Clindamycin SUSCEPTIBILITY >=4: Resistant Staphylococcus aureus Doxycycline SUSCEPTIBILITY <=0.5: Sensitive Staphylococcus aureus Erythromycin SUSCEPTIBILITY >=8: Resistant Staphylococcus aureus Gentamicin SUSCEPTIBILITY <=0.5: Sensitive Staphylococcus aureus Levofloxacin SUSCEPTIBILITY >=8: Resistant Staphylococcus aureus Oxacillin SUSCEPTIBILITY 0.5: Sensitive Comment: Oxacillin susceptibility predicts susceptibility to beta-lactam/beta-lactamase inhibitor combinations, cephalosporins, and carbapenems. Oxacillin resistance predicts resistance to all penicillins, beta-lactam/beta-lactamase inhibitor combinations, cephalosporins, and carbapenems with the exception of cephalosporins with anti-MRSA activity. Staphylococcus aureus Trimethoprim-sulfa methoxazol e SUSCEPTIBILITY <=10: Sensitive Staphylococcus aureus Vancomycin SUSCEPTIBILITY 1: Sensitive Haemophilus influenzae Beta-Lactamase SUSCEPTIBILITY Sensitive Comment: Resistant Result: Organism is Beta-Lactamase Positive. Sensitive Result: Organism is Beta-Lactamase Negative. Beta-Lactamase Positive results predict resistance to Amoxicillin and Ampicillin. Rare Beta-Lactamase Negative Ampicillin Resistant strains of Hemophilus Influenza exist and cannot be ruled out with Beta-Lactamase testing. Jose Bowie MD LAB - MICROBIOLOGY O RDERABLES [facility] [address] [phone] * RESPIRATORY PATHOGEN PANEL BY PCR (03/31/2016 9:06 PM CDT) [facility] Adenovirus Not Detected Not Detected [facility] Human Metapneumovirus Not Detected Not Detected [facility] Influenza A Non subtyped Not Detected Not Detected [facility] Influenza B Not Detected Not Detected [facility] Parainfluenza 1 Not Detected Not Detected [facility] Parainfluenza 2 Not Detected Not Detected [facility] Parainfluenza 3 Not Detected Not Detected [facility] Parainfluenza 4 Not Detected Not Detected [facility] Respiratory Syncytial Virus Not Detected Not Detected [facility] RSV B Not Detected Not Detected [facility] Rhinovirus/Enterov irus Not Detected Not Detected [facility] Nasopharyngeal NASOPHARYNGEAL SWAB / Unknown 03/31/2016 9:06 PM CDT 03/31/2016 9:09 PM CDT Narrative [facility] - 04/01/2016 11:44 AM CDT Negative results for this viral respiratory panel do not preclude viral infection. Test performed by nucleic acid amplification. NOTES: Detecting and identifying specific viral nucleic acids from individuals exhibiting signs and symptoms of respiratory infection aids in the diagnosis of respiratory infection, if used in conjunction with other clinical and laboratory findings. The results of this test should not be used as the sole basis for diagnosis, treatment, or patient management decisions. Clinical evaluation of this panel indicates a lower sensitivity for the detection of Rhinovirus. If infection with Rhinovirus is suspected, negative samples should be confirmed using an alternate method. Jose Bowie MD LAB - MICROBIOLOGY O RDERABLES [facility] [address] [place] [address], [facility] [phone] * (ABNORMAL) COMPLETE PFT W/WO BRONCHODILATOR (03/20/2016 12:39 PM CDT) Impressions [facility] - 03/20/2016 12:39 PM CDT [facility] DEPARTMENT OF PULMONARY, CRITICAL CARE, AND SLEEP MEDICINE PULMONARY FUNCTION TESTS Federico Lambert 03/20/2016 INTERPRETATION Please see technologist's comments mentioned above. SPIROMETRY: Forced vital capacity is decreased but normalized with bronchodilator administration. FEV1 is decreased. FEV1/FVC ratio is decreased. There is significant response to bronchodilator administration. The inspection of the patient's flow-volume loops shows normal configuration of the inspiratory limbs and scooping of the expiratory limbs. LUNG VOLUMES: Lung volumes by body plethysmography show increased TLC and RV. DLCO: Diffusing capacity adjusted for Hb and COHb is within normal limits. AIRWAY RESISTANCE: The airway resistance is increased and the specific conductance is decreased. Airway resistance normalized after bronchodilator administration. ARTERIAL BLOOD GAS ANALYSIS: ABG drawn on RA revealed mild hypoxemia and acute respiratory alkalosis. IMPRESSION: 1. Severe obstructive ventilatory limitation. 2. There is a significant response to bronchodilator administration. 3. Severe air trapping with mild hyperinflation. 4. The airway resistance is increased and the specific conductance is decreased. Airway resistance normalizes with bronchodilator administration. 5. Arterial blood gas reveals mild hypoxemia (However PaO2 > 60) and acute respiratory alkalosis. 6. Compared to the study dated 08/13/2015, there is significant increase in FEV1 of 240 mL. There is no significant change in FVC. There is significant decreased in DLCO 4.41 mL/min/mmHg compared to previous study dated 02/09/2015 . Jurgen Funez MD I have personally reviewed pulmonary function test data and finding. I concur with fellow's note. Juvenal Leos MD Narrative Procedure Note Provider, MD Brianna - 04/05/2018 IMPRESSION [facility] DEPARTMENT OF PULMONARY, CRITICAL CARE, AND SLEEP MEDICINE PULMONARY FUNCTION TESTS Federico Lambert 03/20/2016 INTERPRETATION Please see technologist's comments mentioned above. SPIROMETRY: Forced vital capacity is decreased but normalized with bronchodilator administration. FEV1 is decreased. FEV1/FVC ratio is decreased. There is significant response to bronchodilator administration. The inspection of the patient's flow-volume loops shows normal configuration of the inspiratory limbs and scooping of the expiratory limbs. LUNG VOLUMES: Lung volumes by body plethysmography show increased TLC and RV. DLCO: Diffusing capacity adjusted for Hb and COHb is within normal limits. AIRWAY RESISTANCE: The airway resistance is increased and the specific conductance is decreased. Airway resistance normalized after bronchodilator administration. ARTERIAL BLOOD GAS ANALYSIS: ABG drawn on RA revealed mild hypoxemia and acute respiratory alkalosis. IMPRESSION: 1. Severe obstructive ventilatory limitation. 2. There is a significant response to bronchodilator administration. 3. Severe air trapping with mild hyperinflation. 4. The airway resistance is increased and the specific conductance is decreased. Airway resistance normalizes with bronchodilator administration. 5. Arterial blood gas reveals mild hypoxemia (However PaO2 > 60) and acute respiratory alkalosis. 6. Compared to the study dated 08/13/2015, there is significant increase in FEV1 of 240 mL. There is no significant change in FVC. There is significant decreased in DLCO 4.41 mL/min/mmHg compared to previous study dated 02/09/2015 . Jurgen Funez MD I have personally reviewed pulmonary function test data and finding. I concur with fellow's note. Juvenal Leos MD Bonifacio Easton MD RESPIRATORY THERAPY ORDERABLES [facility] * GLUCOSE ACCUCHECK (02/13/2016 10:53 AM CDT) Only the most recent of26 resultswithin the time period is included. Glucose, Fingerstick 102 70-115mg/d L mg/dL [facility] ([facility]) Comment:Airplane Refueler: MAHAJAN MARCELO 02/13/2016 10:5 3 AM CDT Kadie Lee DO LAB - OBSTETRIC ANAESTHETIST RY ORDERABLES Performing Organization Address City/[facility]/ZIP Co de Phone Number [facility] ([place]) * LAB HISTORICAL RESULTS-ONBASE (02/09/2016) Only the most recent of10 resultswithin the time period is included. 02/09/2016 Narrative [facility] - 02/17/2016 7:49 AM CDT Historical Provider MD LAB - CHEMISTRY O RDERABLES Performing Organization Address City/[facility] Co de Phone Number [facility] [address] * CT FACIAL BONES WO CONTRAST (11/17/2015 11:56 AM TOOL CRIB LEAD) Anatomical Region Laterality Modality Head Other Impressions 11/17/2015 1:51 PM TOOL CRIB LEAD IMPRESSION: 1. Mild diffuse paranasal sinus disease with sclerotic changes and thickening of the plaza, representing acute on chronic sinus disease. 2. Postoperative changes of a bilateral maxillary antrostomy, ethmoidectomy, sphenoidotomy and frontal sinusotomy are seen. This report was approved by Jong Timmons on 11/17/2015 1:45 PM . I, Dr. ISATU GUILLORY M.D. have personally reviewed and interpreted this examination/study. This report was electronically signed by ISATU GUILLORY M.D. on 11/17/2015 1:51 PM . Narrative 11/17/2015 1:51 PM TOOL CRIB LEAD EXAMINATION: Computed tomography (CT) of the maxillofacial bones, orbits, and paranasal sinuses without contrast HISTORY: 45-year-old female with chronic sinusitis. TECHNIQUE: CT of the maxillofacial bones, orbits, and paranasal sinuses was performed without contrast according to standard protocol. FINDINGS: No prior study is available for comparison. The orbits appear normal. Postoperative changes of a bilateral maxillary antrostomy, uncinectomy, ethmoidectomy, sphenoidotomy and frontal sinusotomy are seen. A 1.5 cm defect is seen in the nasal septum. There is diffuse paranasal sinus disease with sclerotic changes and thickening of the plaza. The hard palate, mandible, and temporomandibular joints appear normal. No acute facial bone fractures are identified. The mastoid air cells are clear. No soft tissue abnormality is identified. Procedure Note Isatu Guillory MD - 01/26/2018 EXAMINATION: Computed tomography (CT) of the maxillofacial bones, orbits,and paranasal sinuses without contrast HISTORY: 45-year-old female with chronic sinusitis. TECHNIQUE: CT of the maxillofacial bones, orbits, and paranasal sinuseswas performed without contrast according to standard protocol. FINDINGS: No prior study is available for comparison. The orbits appear normal. Postoperative changes of a bilateral maxillaryantrostomy, uncinectomy, ethmoidectomy, sphenoidotomy and frontalsinusotomy are seen. A 1.5 cm defect is seen in the nasal septum. There isdiffuse paranasal sinus disease with sclerotic changes and thickening of the plaza. The hard palate, mandible,and temporomandibular joints appear normal. No acute facial bone fracturesare identified. The mastoid air cells are clear. No soft tissueabnormality is identified. IMPRESSION IMPRESSION: 1. Mild diffuse paranasal sinus disease with sclerotic changes andthickening of the plaza, representing acute on chronic sinus disease. 2. Postoperative changes of a bilateral maxillary antrostomy,ethmoidectomy, sphenoidotomy and frontal sinusotomy are seen. This report was approved by Jong Timmons on 11/17/2015 1:45 PM . I, Dr. ISATU GUILLORY M.D. have personally reviewed and interpreted thisexamination/study. This report was electronically signed by ISATU GUILLORY M.D. on 11/17/20151:51 PM . Gerardo Angeles MD CT ORDERABLES * CULTURE URINE (11/10/2015 10:28 AM TOOL CRIB LEAD) Only the most recent of4 resultswithin the time period is included. Culture Urine No Growth of >=100 CFU/ml after 48 Hours [facility] Urine specimen (specimen) URINE SPECIMEN OBTAINED BY CLEAN CATCH PROCEDURE / Unknown 11/10/2015 10:28 AM TOOL CRIB LEAD 11/10/2015 3:43 PM TOOL CRIB LEAD Narrative [facility] - 11/12/2015 1:32 PM TOOL CRIB LEAD Specimen Type->Urine Karen Quiñones MD LAB - MICROBI OLOGY ORDERABLES [facility] [address] [place] [address], [facility] [phone] * COMPLETE PFT W/WO BRONCHODILATOR (02/09/2015 10:37 AM CDT) Impressions [facility] - 02/09/2015 10:37 AM CDT [facility] DEPARTMENT OF PULMONARY, CRITICAL CARE, AND SLEEP MEDICINE PULMONARY FUNCTION TESTS Federico Lambert 02/09/2015 INTERPRETATION Please see technologist's comments mentioned above. SPIROMETRY: Forced vital capacity is normal. FEV1 is decreased. FEV1/FVC ratio is decreased. Response to bronchodilator therapy:yes The inspection of the patient's flow-volume loops shows normal configuration of the inspiratory and severe scooping of expiratory limbs. LUNG VOLUMES: Lung volumes by N2 wash out are :Elevated RV DLCO: Diffusing capacity unadjusted for Hb and COHb is within normal limits. IMPRESSION: 1. Severe obstructive ventilatory limitation with a significant bronchodilator response 2. Moderate air trapping 3.Comapred to study done on 07/16/2014, FVC increased by 310 ml and no significant change in FEV1. Compared to study done on 12/08/2013, TLC reduced by 1.24 liters,RV reduced by 1.74 liters. No significant change in DLCO Gregorio Julien MD Pulmonary/Critical Care Fellow I have personally reviewed the test and agreed with the interpretation. Bonifacio Easton M.D., [facility] Narrative Procedure Note Provider, MD Brianna - 04/05/2018 IMPRESSION [facility] DEPARTMENT OF PULMONARY, CRITICAL CARE, AND SLEEP MEDICINE PULMONARY FUNCTION TESTS Federico Lambert 02/09/2015 INTERPRETATION Please see technologist's comments mentioned above. SPIROMETRY: Forced vital capacity is normal. FEV1 is decreased. FEV1/FVC ratio is decreased. Response to bronchodilator therapy:yes The inspection of the patient's flow-volume loops shows normal configuration of the inspiratory and severe scooping of expiratory limbs. LUNG VOLUMES: Lung volumes by N2 wash out are :Elevated RV DLCO: Diffusing capacity unadjusted for Hb and COHb is within normal limits. IMPRESSION: 1. Severe obstructive ventilatory limitation with a significant bronchodilator response 2. Moderate air trapping 3.Comapred to study done on 07/16/2014, FVC increased by 310 ml and no significant change in FEV1. Compared to study done on 12/08/2013, TLC reduced by 1.24 liters,RV reduced by 1.74 liters. No significant change in DLCO Gregorio Julien MD Pulmonary/Critical Care Fellow I have personally reviewed the test and agreed with the interpretation. Bonifacio Easton M.D., [facility] Bonifacio Easton MD RESPIRATORY THERAPY ORDERABLES Performing Organization Address City/[facility]/ZIP Co de Phone Number [facility] * STREP A SCREEN DIRECT (11/19/2014 5:17 PM TOOL CRIB LEAD) Only the most recent of2 resultswithin the time period is included. Rapid Strep A Screen Negative Negative [facility] Throat swab (specimen) ENTIRE THROAT (SURFACE REGION OF NECK) / Unknown 11/19/2014 5:17 PM TOOL CRIB LEAD 11/19/2014 5:20 PM TOOL CRIB LEAD Narrative [facility] - 11/19/2014 5:35 PM TOOL CRIB LEAD Specimen Type->Throat Swab Rapid test for Group A Beta Streptococcus is NEGATIVE. A Negative, Direct Test for Group A Streptococcus will be followed with a confirmatory Throat Culture when 2 swabs have been submitted. Chante Trevizo MD LAB - MICROBIOLOGY ORDERABLES Performing Organization Address [facility] Co de Phone Number [address] [phone] * CULTURE STREP GROUP A (11/19/2014 5:17 PM TOOL CRIB LEAD) Only the most recent of3 resultswithin the time period is included. Culture Beta Strep No Growth of Groups A, C or G Beta Streptococc us. [facility] Throat swab (specimen) ENTIRE THROAT (SURFACE REGION OF NECK) / Unknown 11/19/2014 5:17 PM TOOL CRIB LEAD 11/19/2014 5:35 PM TOOL CRIB LEAD Chante Trevizo MD LAB - MICROBIOLOGY ORDERABLES Performing Organization Address [facility] Co de Phone Number [address] [phone] * STREP PNEUMONIAE ANTIGEN BLOOD/CSF (11/19/2014 1:35 AM TOOL CRIB LEAD) Only the most recent of2 resultswithin the time period is included. Pathologist [facility] Specimen Source Urine [facility] ([facility]) Streptococcus pneumoniae Antigen Negative Negative [facility] ([facility]) Body Fluid Culture Sterile Not Indicated [facility] ([facility]) Organism ID Not indicated. [facility] ([facility]) Please Note Comment [facility] ([facility]) Comment: [employer] guidelines require a culture to be performed on CSF specimens negative by bacterial antigen testing (CAP [id number]). Performed at: [address] [id number] Adoption Agent: Amaury Moctezuma PhD, Phone: [phone] Other (qualifier value) URINE / Unknown 11/19/2014 1:35 AM TOOL CRIB LEAD 11/19/2014 1:45 AM TOOL CRIB LEAD Narrative [facility] ([facility]) - 11/20/2014 3:21 PM TOOL CRIB LEAD Performed at: [address] [id number] Adoption Agent: Hesham Stout MD, Phone: [phone] Chante Trevizo MD LAB - MICROBIOLOGY ORDERABLES [facility]) * INFLUENZA A+B PCR (11/17/2014 10:43 PM TOOL CRIB LEAD) [facility] Influenza A Non subtyped Not Detected Not Detected [facility] Influenza B Not Detected Not Detected [facility] Respiratory Syncytial Virus Not Detected Not Detected [facility] RSV B Not Detected Not Detected [facility] Nasopharyngeal NASOPHARYNGEAL SWAB / Unknown 11/17/2014 10:43 PM TOOL CRIB LEAD 11/17/2014 10:48 PM TOOL CRIB LEAD Narrative [facility] - 11/18/2014 10:21 AM TOOL CRIB LEAD Assay performed by [employer]. NOTE: Negative results for Influenza A, Influenza B or RSV do not preclude influenza virus or RSV infection and should not be used as the sole basis for diagnosis, treatment or patient management decisions. Chante Trevizo MD LAB - MICROBIOLOGY ORDERABLES Performing Organization Address [facility]/ZIP Co de Phone Number [address] [phone] * INFLUENZA B ANTIGEN RAPID (11/17/2014 10:42 PM TOOL CRIB LEAD) Influenza B Rapid Test Negative Negative [facility] Comment: If clinical conditions warrant, molecular testing for Influenza offers superior sensitivity (>98%) and is available by ordering INFLUENZA/RSV SYDNIE [[id number]]. To add to current sample within [address] an electronic or signed manual requisition order and call the [facility] Microbiology Lab at [phone] with your request. Nasopharyngeal SPECIMEN FROM NASOPHARYNGEAL STRUCTURE / Unknown 11/17/2014 10:42 PM TOOL CRIB LEAD 11/17/2014 10:[address] [facility] - 11/17/2014 11:23 PM TOOL CRIB LEAD Specimen Type->Nasopharyngeal The positive and negative predictive values of rapid influenza testing vary considerably depending upon the prevalence on influenza in the community. *False-positive results are more likely to occur when disease prevalence is low. *False-negative results are more likely to occur when disease prevalence is high. *Current local influenza prevalence can be obtained by calling the Director of Microbiology at [phone]. Chante Trevizo MD LAB - CHEMISTRY ORD ERABLES Performing Organization Address [facility] Co de Phone Number [address] [phone] * INFLUENZA A ANTIGEN RAPID (11/17/2014 10:42 PM TOOL CRIB LEAD) Pathologist [facility] Influenza A Rapid Test Negative Negative [facility] Comment: If clinical conditions warrant, molecular testing for Influenza offers superior sensitivity (>98%) and is available by ordering INFLUENZA/RSV SYDNIE [[id number]]. To add to current sample within [address] an electronic or signed manual requisition order and call the [facility] Microbiology Lab at [phone] with your request. Nasopharyngeal SPECIMEN FROM NASOPHARYNGEAL STRUCTURE / Unknown 11/17/2014 10:42 PM TOOL CRIB LEAD 11/17/2014 10:48 PM TOOL CRIB LEAD Narrative [facility] - 11/17/2014 11:23 PM TOOL CRIB LEAD Specimen Type->Nasopharyngeal The positive and negative predictive values of rapid influenza testing vary considerably depending upon the prevalence on influenza in the community. *False-positive results are more likely to occur when disease prevalence is low. *False-negative results are more likely to occur when disease prevalence is high. *Current local influenza prevalence can be obtained by calling the Director of Microbiology at [phone]. Chante Trevizo MD LAB - CHEMISTRY ORD ERABLES [facility] [address] [place] [address], [facility] [phone] * CYTOLOGY NON-[employer]TS [employer] PANEL (STL) (09/11/2014 3:01 PM TOOL CRIB LEAD) Only the most recent of2 resultswithin the time period is included. Cytology Non-Vp Strategic Planning Reference: [id number] Specimen: LUNG, RUL, BRUSH Clinical History: Lung infiltrates Gross Description: 5 fixed slides, 10ml saline clear Preparation Method: 5 pap stained slides, 1 GMS slide SPECIMEN ADEQUACY: - SATISFACTORY FOR EVALUATION FINAL DIAGNOSIS: LUNG, RIGHT UPPER LOBE, BRUSHING - NEGATIVE FOR MALIGNANCY - NO FUNGAL ELEMENTS SEEN MICROSCOPIC DESCRIPTION: Material reviewed: 5 pap stained slides, 1 GMS special stain Review of slides prepared reveals scattered squamous cells, bronchial epithelial cells, and histiocytes in a background of fibrin, lymphocytes and neutrophils. The epithelial cells seen are benign in appearance with no nuclear abnormality. No evidence of malignancy is seen. GMS staining is performed and no fungal elements are identified. COMMENT(S): This case has been personally reviewed and interpreted by the attending (teaching) pathologist. Initial Evaluation performed by Himanshu MORENO(ASCP). Electronically signed 09/15/2014 Final Diagnosis performed by Felix Burnett MD. Electronically signed 09/15/2014 [facility] ([facility]) Other (qualifier value) 09/11/2014 3:01 PM TOOL CRIB LEAD 09/11/2014 3:16 PM TOOL CRIB LEAD Narrative [facility] ([facility]) - 09/16/2014 1:37 PM TOOL CRIB LEAD Diagnosis->Lung Infiltrates Collection Date->09/11/14 Collection Time-> 2:24 PM Specimen A->[place] RUL cytobrush and cytorinse Elvis Avilez MD LAB - PATHOLOGY/CYTO LOGY ORDERABLES [facility] ([place]) * FLOW CYTOMETRY PANEL (09/11/2014 3:01 PM TOOL CRIB LEAD) Flow Cytometry Results Specimen: BAL Reference: [id number] Reason for test: None Provided Markers: 9 DIAGNOSIS: BRONCHOALVEOLAR LAVAGE, FLOW CYTOMETRIC IMMUNOPHENOTYPIC ANALYSIS: - REDUCED VIABILITY SPECIMEN WITHOUT EVIDENCE OF NON-HODGKIN LYMPHOMA - SEE DESCRIPTION Flow Cytometry Results: Differential Result Comment %VIABILITY * 47 %LYMPHOCYTES 26 %MONOCYTES 9 %GRANULOCYTES 65 Cell Region A: Lymphocytes Surface Marker Result (%) CD3 3 CD4 4 CD5 7 CD8 1 CD10 2 CD19 0 CD20 0 CD45 16 HLA-DR 4 Cell Region B: Monocytes Surface Marker Result (%) CD3 0 CD4 4 CD5 3 CD8 0 CD10 3 CD19 0 CD20 1 CD45 11 HLA-DR 8 Peripheral Blood Lymphocyte Adult Normal Reference Range (%) except CD4/CD8 CD1 0 CD24 11-19 CD2 74-94 CD25 5-17 CD3 54-94 CD33 0-7 CD4 40-56 CD34 0-3 CD4/CD8 (0.7-2.7) CD38 15-55 CD5 57-93 CD45 97-100 CD7 58-82 CD56 6-26 CD8 17-45 CD57 0-26 CD10 1-9 CD117 0 CD11b 14-42 CD138 0-1 CD11c 4-14 IgG 0-7 CD13 0-4 IgM 4-16 CD14 0-11 IgA 2-6 CD15 0-1 IgD 3-15 CD16 0-23 [place] 3-12 CD19 8-24 Lambda 3-7 CD20 7-17 HLA-DR 9-25 CD23 2-16 TdT 0 Peripheral Blood Monocyte Region Adult Normal Reference Range (%) CD1 0-2 CD24 0-28 CD2 0-28 CD25 5-17 CD3 0-13 CD33 74-100 CD4 20-100 CD34 0-5 CD5 0-16 CD38 65-100 CD7 0-3 CD45 97-100 CD8 0-16 CD56 0-18 CD10 11-39 CD57 0-8 CD11b 84-100 CD117 0-1 CD11c 89-100 CD138 0-1 CD13 63-100 IgG 46-98 CD14 79-99 IgM 0-15 CD15 0-37 IgA 0-16 CD16 0-34 IgD 0-20 CD19 0-48 [place] 0-6 CD20 0-10 Lambda 0-7 CD23 0-13 HLA-DR 67-100 TdT 0 * The established laboratory minimum viability is 70%. Values below this minimum may result in the failure to find an abnormal population of cells. Test performed at [facility], [address] [facility] [address] This test was developed and its performance characteristics determined by The [facility] Laboratory. It has not been cleared by the U.S. Food and Drug Administration. The FDA has determined that such clearance or approval is not necessary. This test is used for clinical purposes. It should not be regarded as investigational or for research. This laboratory is regulated under the Clinical Laboratory Improvement Amendments of 1998 (CLIA) as qualified to perform high complexity clinical testing. IMMUNOPHENOTYPE AND MORPHOLOGY: Flow cytometry of the bronchoalveolar lavage demonstrates a decreased viability of only 47% with 26% of cells within the small lymphocyte region, 9% of cells within the large mononuclear region, and 65% of cells within the granulocyte region. Within the small lymphocyte region, only 16% of flow events are [id number]. 3% of cells are CD3-positive T-cells with appropriate expression of CD5. No significant B-cell population is identified. Within the large mononuclear region, 11% of flow events are [id number]-ypxxdffh, but no significant population of T-cells or B-cells is identified in this region. Cytomorphologic examination of the cytospin prepared from the flow cytometry specimen in the [facility] Department of Pathology demonstrates primarily bronchoalveolar macrophages with admixed red blood cells and few small, mature-appearing lymphocytes, neutrophils, and degenerating cells. No large, atypical cells are seen. Overall, flow cytometry fails to identify a significant abnormal B-cell or T-cell population. There is no evidence of involvement by a non-Hodgkin lymphoma. Correlation with clinical findings and concurrent cytology is recommended. KM/MS/OA/pj This case has been personally reviewed and interpreted by the attending (teaching) pathologist. Final Diagnosis performed by Karen Gates MD. Electronically signed 09/14/2014 [facility] ([facility]) Other (qualifier value) BRONCHIOLOALVEOLAR LAVAGE / Unknown 09/11/2014 3:01 PM TOOL CRIB LEAD 09/11/2014 3:13 PM TOOL CRIB LEAD Elvis Avilez MD LAB - HEMATOLOGY ORD ERABLES [facility] ([facility]) * CULTURE CHLAMYDIA PSITTACI (09/11/2014 2:56 PM TOOL CRIB LEAD) Chlamydia psittaci Culture Negative [facility] Bronchial Washings SPECIMEN FROM LUNG OBTAINED BY BRONCHIAL WASHING PROCEDURE / Unknown 09/11/2014 2:56 PM TOOL CRIB LEAD 09/11/2014 3:55 PM TOOL CRIB LEAD Narrative [facility] - 09/17/2014 6:30 AM TOOL CRIB LEAD Specimen Type->Bronchial washings Performed at: [address] [place] [id number] Adoption Agent: Hesham Stout MD, Phone: [phone] Elvis Avilez MD LAB - MICROBIOLOGY O RDRONALDO Performing Organization Address [facility] Co de Phone Number [facility] ([facility]) * CULTURE AFB+SMEAR (09/11/2014 2:56 PM TOOL CRIB LEAD) Only the most recent of6 resultswithin the time period is included. Culture Acid Fast Bacilli No Growth of Acid Fast bacilli after 8 weeks. [facility] AFB Smear No Acid Fast bacilli seen on direct smear. [facility] AFB Smear No Acid Fast bacilli seen on concentrated smear. [facility] Bronchial Washings SPECIMEN FROM LUNG OBTAINED BY BRONCHIAL WASHING PROCEDURE / Unknown 09/11/2014 2:56 PM TOOL CRIB LEAD 09/11/2014 3:54 PM TOOL CRIB LEAD Narrative [facility] - 11/09/2014 11:01 AM TOOL CRIB LEAD BRONCHIAL WASH Specimen Type->Bronchial Washings Elvis Avilez MD LAB - MICROBIOLOGY O RDERABLES [address] [phone] * VIRAL CULTURE MISC (09/11/2014 2:56 PM TOOL CRIB LEAD) Only the most recent of2 resultswithin the time period is included. Pathologist [facility] Viral Culture General No virus isolated. [facility] ([facility]) Bronchial Washings SPECIMEN FROM LUNG OBTAINED BY BRONCHIAL WASHING PROCEDURE / Unknown 09/11/2014 2:56 PM TOOL CRIB LEAD 09/11/2014 3:55 PM TOOL CRIB LEAD Narrative [facility]) - 09/21/2014 8:09 AM TOOL CRIB LEAD BRONCHIAL WASH Specimen Type->Bronchial Washings Performed at: - [address] [id number] Adoption Agent: Hesham Stout MD, Phone: [phone] Elvis Avilez MD LAB - MICROBIOLOGY O RDERABLES Performing Organization Address [facility] Co de Phone Number [facility] ([facility]) * CELL COUNT W DIFFERENTIAL FLUID (09/11/2014 2:51 PM TOOL CRIB LEAD) Only the most recent of2 resultswithin the time period is included. Bronchoalveolar Lavage BRONCHIOLOALVEOLAR LAVAGE / Unknown 09/11/2014 2:51 PM TOOL CRIB LEAD Narrative [facility] - 09/11/2014 4:22 PM TOOL CRIB LEAD The following orders were created for panel order Body fluid cell count with diff. Procedure Abnormality Status --------- ------ Body fluid cell count wit...[[id number]] Abnormal Final result MANUAL DIFFERENTIAL FLUID[[id number]] Final result Please view results for these tests on the individual orders. Elvis Avilez MD LAB - BODY FLUID ORD ERABLES Performing Organization Address City/[facility]/ZIP Co de Phone Number [facility] [address] [place] [address], [facility] * DIFFERENTIAL MANUAL FLUID (09/11/2014 2:51 PM TOOL CRIB LEAD) Pathologist [facility] Segs % Fluid 4 % [facility] Lymphocytes % Fluid 18 % [facility] Monocytes % Fluid 21 % [facility] Eosinophils % Fluid 3 % [facility] Macrophages % Fluid 48 % [facility] Pneumocytes % Fluid 6 % [facility] Bronchoalveolar Lavage BRONCHIOLOALVEOLAR LAVAGE / Unknown 09/11/2014 2:51 PM TOOL CRIB LEAD 09/11/2014 4:07 PM TOOL CRIB LEAD Narrative [facility] - 09/11/2014 4:22 PM TOOL CRIB LEAD No reference ranges established for body fluid differential. Elvis Avilez MD LAB - BODY FLUID ORD ERABLES Performing Organization Address City/[facility]/ZIP Co de Phone Number [address] [phone] * (ABNORMAL) CELL COUNT FLUID (09/11/2014 2:51 PM TOOL CRIB LEAD) Color Fluid Mcintosh(A) Colorles s, Straw [facility] Clarity Fluid Hazy(A) Clear [facility] Volume Fluid 8.0 mL [facility] WBC Calculation Fluid 41 /uL [facility] RBC Calculation 1,230 /uL [facility] Differential Manual Differential to follow. [facility] Bronchoalveolar Lavage BRONCHIOLOALVEOLAR LAVAGE / Unknown 09/11/2014 2:51 PM TOOL CRIB LEAD 09/11/2014 3:[address] [facility] - 09/11/2014 4:08 PM TOOL CRIB LEAD No established reference ranges for WBC and RBC body fluid count. Elvis Avilez MD LAB - BODY FLUID ORD ERABLES Performing Organization Address [facility] Co de Phone Number [address] [phone] * CULTURE BRONCHOALVEOLAR LAVAGE QNT+GRAM STAIN (09/11/2014 2:50 PM TOOL CRIB LEAD) Only the most recent of2 resultswithin the time period is included. Culture Quant-BAL No Growth of >=100 CFU/ml after 48 Hours [facility] Bronchoalveolar Lavage BRONCHIOLOALVEOLAR LAVAGE / Unknown 09/11/2014 2:50 PM TOOL CRIB LEAD 09/11/2014 3:[address] [facility] - 09/13/2014 9:16 AM TOOL CRIB LEAD RML BAL Specimen Type->Bronchoalveolar Lavage RML BAL Elvis Avilez MD LAB - MICROBIOLOGY O RDERABLES Performing Organization Address City/[facility]/ZIP Co de Phone Number [address] [phone] * GRAM STAIN SMEAR (09/11/2014 2:50 PM TOOL CRIB LEAD) Only the most recent of8 resultswithin the time period is included. Gram Stain No Organism Seen [facility] Bronchoalveolar Lavage BRONCHIOLOALVEOLAR LAVAGE / Unknown 09/11/2014 2:50 PM TOOL CRIB LEAD 09/11/2014 3:54 PM TOOL CRIB LEAD Narrative [facility] - 09/11/2014 7:56 PM TOOL CRIB LEAD [facility] BAL Specimen Type->Bronchoalveolar Lavage Gram Stains are routinely screened for the presence of Polymorphonuclear Cells. Elvis Avilez MD LAB - MICROBIOLOGY O RDRONALDO Performing Organization Address [facility] Co de Phone Number [address] [phone] * NEUTROPHIL CYTOPLASMIC ANTIBODY (09/04/2014 2:03 PM TOOL CRIB LEAD) Only the most recent of2 resultswithin the time period is included. Cytoplasmic (C-ANCA) <1:20 Neg:<1:20 titer [facility] ([facility]) p-ANCA <1:20 Neg:<1:20 titer [facility] ([facility]ER) Comment: The presence of positive fluorescence exhibiting P-ANCA or C-ANCA patterns alone is not specific for the diagnosis of Dang's Granulomatosis (WG) or microscopic polyangiitis. Decisions about treatment should not be based solely on ANCA IFA results. The [employer] ANCA [employer] Consensus recommends follow up testing of positive sera with both MN-3 and MPO-ANCA enzyme immunoassays. As many as 5% serum samples are positive only by EIA. Ref. AM J Clin Pathol 1999;111:507-513. Atypical p-ANCA <1:20 Neg:<1:20 titer [facility] ([facility]ER) Comment: The atypical pANCA pattern has been observed in a significant percentage of patients with ulcerative colitis, primary sclerosing cholangitis and autoimmune hepatitis. Blood specimen (specimen) BLOOD SPECIMEN / Unknown 09/04/2014 2:03 PM TOOL CRIB LEAD 09/04/2014 2:15 PM TOOL CRIB LEAD Narrative [facility] ([place]) - 09/07/2014 5:13 PM TOOL CRIB LEAD Performed at: [address] [id number] Adoption Agent: Amaury Moctezuma PhD, Phone: [phone] Historical Provider LAB - CHEMISTRY O RDRONALDO Performing Organization Address [facility] Co de Phone Number [facility] ([facility]) * MPO/MN 3 AUTOANTIBODIES PANEL (09/04/2014 2:03 PM TOOL CRIB LEAD) Pathologist [facility] Anti-myeloperox idase (MPO) Antibody <9.0 0.0 - 9.0 U/mL [facility]) Anti-Proteinase 3 (MN-3) Antibody <3.5 0.0 - 3.5 U/mL [facility] ([facility]) Blood specimen (specimen) BLOOD SPECIMEN / Unknown 09/04/2014 2:03 PM TOOL CRIB LEAD 09/04/2014 2:16 PM TOOL CRIB LEAD Narrative [facility] - 09/07/2014 3:18 PM TOOL CRIB LEAD Performed at: [address] [id number] Adoption Agent: Hesham Stout MD, Phone: [phone] Historical Provider LAB - CHEMISTRY O DEMETRI Performing Organization Address City/[facility] Co de Phone Number [facility] ([facility]) * (ABNORMAL) ALLERGEN PROF ZONE 8 (IN [place]) (09/03/2014 2:29 PM TOOL CRIB LEAD) Pathologist [facility] Class Description Comment [facility] ([facility]) Comment: Levels of Specific IgE Class Description of Class ----- < 0.10 0 Negative 0.10 - 0.31 0/I Equivocal/Low 0.32 - 0.55 I Low 0.56 - 1.40 II Moderate 1.41 - 3.90 III High 3.91 - 19.00 IV Very High 19.01 - 100.00 V Very High >100.00 Very High Allergen Dermatophagoides pteronyssinus <0.10 Class 0 kU/L [facility] ([facility]ER) Allergen Dermatophagoides farinae S803-HgZ <0.10 Class 0 kU/L [facility] (BEAKER) Allergen Cat Dander <0.10 Class 0 kU/L [facility] (BEAKER) Allergen Dog Dander <0.10 Class 0 kU/L [facility] (BEAKER) Allergen B[place] Grass IgE <0.10 Class 0 kU/L [facility] (BEAKER) [facility]en [facility] G008 IgE <0.10 Class 0 kU/L [facility] (BEAKER) Allergen Daniel Grass <0.10 Class 0 kU/L [facility] (BEAKER) Allergen Bahia Grass (G17) IgE <0.10 Class 0 kU/L [facility] (BE[facility]) Allergen Cockroach Rwandan <0.10 Class 0 kU/L [facility] ([facility]) Allergen Penicillium chrysogen <0.10 Class 0 kU/L [facility] ([facility]) Cladosporium herbarum <0.10 Class 0 kU/L [facility] ([facility]) Allergen Aspergillus fumigatus Antibody IgE 1.16(A) Class II kU/L [facility] [facility] (BEAKER) Allergen Mucor racemosus M004 <0.10 Class 0 kU/L [facility] (BEAKER) Allergen Alternaria tenuis IgE <0.10 Class 0 kU/L [facility] (BEAKER) Allergen M10 Stemphylium herbarum IgE <0.10 Class 0 kU/L [facility] (BEAKER) Allergen T007 Manchester White <0.10 Class 0 kU/L [facility] (BEAKER) Allergen T008 Elm Rwandan IgE <0.10 Class 0 kU/L [facility] (BEAKER) Allergen Maple/Saguache T001 IgE <0.10 Class 0 kU/L [facility] (BEAKER) Allergen Hazelnut Tree (T4) IgE <0.10 Class 0 kU/L [facility] (BEAKER) Allergen Leslie <0.10 Class 0 kU/L [facility] (BEAKER) Allergen Mickleton Tree <0.10 Class 0 kU/L [facility] (BEAKER) Allergen Hial[place] Tree <0.10 Class 0 kU/L [facility] (BEAKER) Allergen T006 [place] Mountain <0.10 Class 0 kU/L [facility] (BEAKER) Allergen Sweet Gum (T211) IgE <0.10 Class 0 kU/L [facility] (BEAKER) Allergen Short Ragweed IgE <0.10 Class 0 kU/L [facility] (BEAKER) Allergen Mugwort IgE <0.10 Class 0 kU/L [facility] (BEAKER) Allergen Spanish Plantain <0.10 Class 0 kU/L [facility] (BEAKER) Allergen Rough Pigweed IgE <0.10 Class 0 kU/L [facility] (BEAKER) Allergen Sheep Truchas (W18) IgE <0.10 Class 0 kU/L [facility] (BEAKER) Allergen Nettle (W20) IgE <0.10 Class 0 kU/L [facility] (BEAKER) Blood specimen (specimen) BLOOD SPECIMEN / Unknown 09/03/2014 2:29 PM TOOL CRIB LEAD 09/03/2014 2:38 PM TOOL CRIB LEAD Narrative [facility] (BEAKER) - 09/06/2014 10:00 AM TOOL CRIB LEAD Test(s) [id number] Cockroach, Rwandan; [id number] Leslie, White; [id number] Sweet Gum were developed and had performance characteristics determined by [facility]. These tests have not been cleared or approved by the U.S. Food and Drug Administration. The FDA has determined that such clearance or approval is not necessary. These tests are used for clinical purposes. These should not be regarded as investigational or for research. Performed at: - [address] [id number] Adoption Agent: Hesham Stout MD, Phone: [phone] Historical Provider LAB - SEROLOGY OR DERABLES Performing Organization Address [facility]/ZIP Co de Phone Number [facility] (BEAKER) * EOSINOPHIL SPUTUM SMEAR (09/03/2014 1:46 PM TOOL CRIB LEAD) [facility] Eosinophils Smear None None [facility] Sputum specimen (specimen) SPUTUM / Unknown 09/03/2014 1:46 PM TOOL CRIB LEAD 09/03/2014 1:50 PM TOOL CRIB LEAD Historical Provider LAB - MICROBIOLOG Y ORDERABLES Performing Organization Address City/[facility]/ZIP Co de Phone Number [facility] [address] [place] [address] * IGE BLOOD (08/22/2014 9:28 AM CDT) Only the most recent of3 resultswithin the time period is included. [facility] IgE Total 71 <KI=844 kU/L [facility] ([facility]) Comment: Test Performed at: [facility] [address] [place] [address] HESHAM HOOKS DO,MPH Blood specimen (specimen) BLOOD SPECIMEN / Unknown 08/22/2014 9:28 AM CDT 08/22/2014 9:29 AM CDT Bonifacio Easton MD LAB - CHEMISTRY MINESH HAMILTON Performing Organization Address [facility] Co de Phone Number [facility] ([facility]) * (ABNORMAL) HEPATIC FUNCTION PANEL (07/16/2014 11:55 PM CDT) Only the most recent of15 resultswithin the time period is included. [facility] Protein Total 7.9 6.0 - 8.3 g/dL S LABORATORY [facility] Albumin 3.5 3.4 - 5.0 g/dL [facility] Bilirubin Total 0.3 0.2 - 1.2 mg/dL [facility] Bilirubin Conjugated 0.1 0.0 - 0.5 mg/dL [facility] Bilirubin Unconjugated 0.2 Unconjugated Bilirubin is a calculated value: Reference ranges have not been established. mg/dL [facility] Alkaline Phosphatase 63 40 - 150 Units/L [facility] ALT 12 0 - 55 Units/L [facility] AST 16 5 - 34 Units/L [facility] Albumin/Globulin Ratio 0.8(L) 1.1 - 2.3 [facility] Blood specimen (specimen) BLOOD SPECIMEN / Unknown 07/16/2014 11:55 PM CDT 07/16/2014 11:55 PM CDT James Calderon MD LAB - CHEMISTRY ORD ERABLES Performing Organization Address [facility]/ZIP Co de Phone Number [address] [phone] * HCG BETA BLOOD QUANTITATIVE (07/14/2014 5:38 PM CDT) Pathologist [facility] Beta-hCG Total Quantitative <5 <5 mIU/mL [facility] Comment: HCG Numeric Result Interpretation: Non- Females: < 5 mIU/mL Post-Menopausal Females: < 7 mIU/mL Blood specimen (specimen) BLOOD SPECIMEN / Unknown 07/14/2014 5:38 PM CDT 07/14/2014 5:52 PM CDT James Calderon MD LAB - CHEMISTRY ORD RONALDO Performing Organization Address [facility] de Phone Number [address] [phone] * VAS BILATERAL VENOUS DUPLEX LE (07/14/2014 1:32 PM CDT) Only the most recent of2 resultswithin the time period is included. Anatomical Region Laterality Modality Other Historical Provider VASCULAR LAB MINESH HAMILTON * LAB MISC TEST (07/13/2014 1:45 PM CDT) Pathologist [facility] Reference Lab Results SEE SCANNED REPORT [facility] REF LAB NON INTERF Other (qualifier value) 07/13/2014 1:45 PM CDT 07/13/2014 2:19 PM CDT James Calderon MD LAB SEND OUT [facility] REF LAB NON INTERF * HIV-1 HIV-2 ANTIGEN/ANTIBODY (07/13/2014 1:36 PM CDT) HIV Antigen/Antibod y 1 & 2 Non-reacti ve Non-react mario [facility] Comment: Neither HIV-1 p24 Antigen nor HIV-1/HIV-2 Antibodies are detected. Blood specimen (specimen) BLOOD SPECIMEN / Unknown 07/13/2014 1:36 PM CDT 07/13/2014 1:43 PM CDT James Calderon MD LAB - HEMATOLOGY OR DERABLES Performing Organization Address [facility]/ZIP Co de Phone Number [address] [phone] * ENTEROVIRUS PCR (07/13/2014 1:24 PM CDT) Enterovirus RT-PCR Negative Negative [facility] ([facility]) Comment: No Enteroviral RNA Detected. This test was developed and its performance characteristics determined by [employer]. It has not been cleared or approved by the Food and Drug Administration. The FDA has determined that such clearance or approval is not necessary. Other (qualifier value) NASOPHARYNGEAL SWAB / Unknown 07/13/2014 1:24 PM CDT 07/13/2014 2:14 PM CDT Narrative [facility] ([facility]) - 07/16/2014 6:37 AM CDT Performed at: [facility] [id number] Adoption Agent: Hesham Stout MD, Phone: [phone] James Calderon MD LAB - SEROLOGY ORDE RABLES Performing Organization Address City/[facility] Co de Phone Number [facility] * NM LUNG VENT AND PERFUSION (07/13/2014 12:40 PM CDT) Anatomical Region Laterality Modality Lung, Chest Other Impressions 07/13/2014 2:16 PM CDT Impression: 1. Low probability of pulmonary embolism. This report was approved by CONSUELO GALLEGOS on 07/13/2014 2:04 PM . Tracey, Dr. ANGELA PRESLEY D.O. have personally reviewed and interpreted this examination/study. This report was electronically signed by ANGELA PRESLEY D.O. on 07/13/2014 2:16 PM . Narrative 07/13/2014 2:16 PM CDT Procedure: Ventilation and Perfusion Lung (V/Q) Scan. History: Bronchial asthma with increasing oxygen requirements and dyspnea. Agent: 26.8 mCi of Xe-133, inhaled; 5.3 mCi Tc-99m MAA, IV in the right chest port Findings: Multiple planar perfusion images of the lungs reveal regional areas of decreased activity in the left and right midlungs with no segmental appearing defects. The fissures are prominent bilaterally. Focal intense uptake in the right chest is likely secondary to the injection catheter or a mucous plug. Ventilation scan shows regional areas of decreased activity in the left and right midlungs during xenon entry and equilibrium phase within the lung. The fissures are prominent bilaterally. The early washout and delayed washout reveal no abnormal retention of the radiotracer. Procedure Note Angela Presley, DO - 01/26/2018 Procedure: Ventilation and Perfusion Lung (V/Q) Scan. History: Bronchial asthma with increasing oxygen requirements anddyspnea. Agent: 26.8 mCi of Xe-133, inhaled; 5.3 mCi Tc-99m MAA, IV in the rightchest port Findings: Multiple planar perfusion images of the lungs reveal regional areas ofdecreased activity in the left and right midlungs with no segmentalappearing defects. The fissures are prominent bilaterally. Focal intenseuptake in the right chest is likely secondary to the injection catheter or a mucous plug. Ventilation scan shows regional areas of decreased activity in the leftand right midlungs during xenon entry and equilibrium phase within thelung. The fissures are prominent bilaterally. The early washout anddelayed washout reveal no abnormal retention of the radiotracer. IMPRESSION Impression: 1. Low probability of pulmonary embolism. This report was approved by CONSUELO GALLEGOS on 07/13/2014 2:[address] ANGELA Webb D.O. have personally reviewed and interpreted thisexamination/study. This report was electronically signed by ANGELA PRESLEY D.O. on 07/13/20142:16 PM . James Calderon MD [place] ORDERABLES * FUNGUS SMEAR (07/13/2014 5:08 AM CDT) Only the most recent of8 resultswithin the time period is included. Fungus Smear No Fungi seen. [facility] Sputum specimen (specimen) (Unspecified) 07/13/2014 5:08 AM CDT 07/13/2014 7:25 AM CDT James Calderon MD LAB - MICROBIOLOGY ORDERABLES Performing Organization Address City/[facility]/ZIP Co de Phone Number [address] [phone] * (ABNORMAL) CULTURE FUNGUS OTHER (07/13/2014 5:06 AM CDT) Only the most recent of4 resultswithin the time period is included. Pathologist [facility] Culture Fungus-Other AYLIN DUBLINIENSI S(A) [facility] Comment:Light Growth Aylin Dubliniensis Sputum specimen (specimen) (Unspecified) 07/13/2014 5:06 AM CDT 07/14/2014 8:41 AM CDT James Calderon MD LAB - MICROBIOLOGY ORDERABLES Performing Organization Address [facility]/ZIP Co de Phone Number [address] [phone] * ECHO W DOPPLER AND COLOR FLOW (07/13/2014 12:00 AM CDT) Only the most recent of2 resultswithin the time period is included. Anatomical Region Laterality Modality Other 07/13/2014 James Calderon MD ECHOCARDIOGRAPHY RA DIANT * PTT [facility] (07/11/2014 12:12 AM CDT) Only the most recent of2 resultswithin the time period is included. APTT 30.5 23.0 - 38.4 Seconds [facility] Comment:Suggested therapeuti c range for full dose I.V. heparin therapy for venous thromboembolism is 66.0-91.0 seconds. Blood specimen (specimen) BLOOD SPECIMEN / Unknown 07/11/2014 12:12 AM CDT 07/11/2014 12:16 AM CDT Narrative [facility] - 07/11/2014 12:41 AM CDT Is patient on Heparin, Argatroban or Dabigatran?->N Historical Provider LAB - COAGULATION ORDERABLES Performing Organization Address City/State/[facility] Co de Phone Number [address] [phone] * (ABNORMAL) URINALYSIS REFLEX TO MICROSCOPIC NO CULTURE (07/10/2014 6:43 PM CDT) Only the most recent of3 resultswithin the time period is included. Color UA Yellow Straw, Yellow, Colorless, Light Yellow [facility] Clarity UA Hazy(A) Clear [facility] Specific Milton UA 1.010 1.001 - 1.030 [facility] pH UA 5.0 5.0 - 8.0 [facility] Protein UA 20 <=20 mg/dL [facility] Glucose UA Negative Negative mg/dL [facility] Ketone UA Negative Negative mg/dL [facility] Bilirubin UA Negative Negative mg/dL [facility] Blood UA Negative Negative [facility] Nitrite UA Negative Negative [facility] Leukocyte Esterase Negative Negative [facility] Urobilinogen UA <2.0 <2.0 mg/dL [facility] RBC UA 3 0 - 8 /HPF [facility] WBC UA 1 0 - 2 /HPF [facility] Bacteria UA Rare Rare, Occasional, None /HPF [facility] Squamous Epithelial Cells UA 32(H) 0 - 1 /HPF [facility] Mucus UA Occasional( A) None /LPF [facility] Urine specimen (specimen) 07/10/2014 6:43 PM CDT 07/10/2014 7:02 PM CDT Historical Provider LAB - URINALYSIS ORDERABLES [address] [phone] * MYCOPLASMA PNEUMONIAE AB IGM (07/10/2014 6:27 PM CDT) [facility] Mycoplasma pneumoniae Antibody IgM <770 0 - 769 U/mL [facility] ([facility]) Comment: Negative <770 Clinically significant amount of M. pneumoniae antibody not detected. Low Positive 770 - 950 M. pneumoniae specific IgM presumptively detected. It is recommended that another sample be collected 1-2 weeks later to assure reactivity. Positive >950 Highly significant amount of M. pneumoniae specific IgM antibody detected. Blood specimen (specimen) 07/10/2014 6:27 PM CDT 07/10/2014 6:36 PM CDT Narrative [facility]) - 07/13/2014 3:18 PM CDT Performed at: [address] [place] [id number] Adoption Agent: Amaury Moctezuma PhD, Phone: [phone] Historical Provider LAB - SEROLOGY OR DERABLES Performing Organization Address [facility]/ZIP Co de Phone Number [facility]) * LDH BLOOD (07/10/2014 6:27 PM CDT) [facility] LDH Total 200 125 - 243 Units/L [facility] Blood specimen (specimen) 07/10/2014 6:27 PM CDT 07/10/2014 6:36 PM CDT Historical Provider LAB - CHEMISTRY O RDERABLES Performing Organization Address [facility]/ZIP Co de Phone Number [address] [phone] * TROPONIN I (07/09/2014 8:35 PM CDT) Only the most recent of2 resultswithin the time period is included. [facility] Troponin I <0.032 <0.032 ng/mL [facility] Blood specimen (specimen) BLOOD SPECIMEN / Unknown 07/09/2014 8:35 PM CDT 07/09/2014 9:06 PM CDT Historical Provider LAB - CHEMISTRY O RDERABLES Performing Organization Address [facility] Co de Phone Number [facility] [address] [phone] * (ABNORMAL) D-DIMER (06/10/2014 1:31 PM CDT) D-Dimer Quantitative 0.66(H) <0.50 mcg/mL [facility] ([facility]) Comment: The D-Dimer test is used frequently to exclude an acute PE or DVT. In patients with a low to moderate clinical risk assessment and a D-Dimer result <0.50 mcg/mL [facility], the likelihood of a PE or DVT is very low. However, a thromboembolic event should not be excluded solely on the basis of the D-Dimer level. Increased levels of D-Dimer are associated with a PE, DVT, DIC, malignancies, inflammation, sepsis, surgery, trauma, , and advancing patient age. [Arley 2006 11:295(2):199-207] Test Performed at: [facility] [address] [place] [address] HESHAM HOOKS DO,MPH Blood specimen (specimen) BLOOD SPECIMEN / Unknown 06/10/2014 1:31 PM CDT 06/10/2014 1:31 PM CDT Bonifacio Easton MD LAB - COAGULATION OR DERABLES [facility] ([facility]) * (ABNORMAL) PULSE OX EXERCISE - POCT (AMB) [facility] (06/05/2014) Impressions [facility] - 06/05/2014 12:00 AM CDT The patient's baseline O2 satutration was 94%The patient desaturated to 89% after walking 2 minutes. The patient developed severe wheezing. We administered Albuterol HFA and Arcaptaneohaler. Narrative Procedure Note Provider, Brianna, - 04/05/2018 IMPRESSION The patient's baseline O2 satutration was 94%The patient desaturated to 89% after walking 2 minutes. The patient developed severe wheezing. We administered Albuterol HFA and Arcaptaneohaler. Bonifacio Easton MD LAB - POINT OF CARE ORDERABLES Performing Organization Address [facility] de Phone Number [facility] * AFB SMEAR (04/12/2014 6:30 PM CDT) Only the most recent of7 resultswithin the time period is included. AFB Smear No acid fast bacilli seen [facility] Sputum specimen (specimen) 04/12/2014 6:30 PM CDT 04/12/2014 7:26 PM CDT Puneet Mike III, MD LAB - MICROBIOLO GY ORDERABLES Performing Organization Address [facility] de Phone Number [address] [phone] * CULTURE AFB (04/12/2014 6:29 PM CDT) Only the most recent of6 resultswithin the time period is included. Culture Acid Fast Bacilli No Growth of Acid Fast bacilli after 8 weeks. [facility] Sputum specimen (specimen) 04/12/2014 6:29 PM CDT 04/12/2014 7:26 PM CDT Puneet Mike III, MD LAB - MICROBIOLO GY ORDERABLES Performing Organization Address [facility] Phone Number [address] [phone] * VANCOMYCIN LEVEL TROUGH (04/12/2014 7:00 AM CDT) Only the most recent of5 resultswithin the time period is included. Vancomycin Trough 11.1 10.0 - 20.0 mcg/mL [facility] Blood specimen (specimen) BLOOD SPECIMEN / Unknown 04/12/2014 7:00 AM CDT 04/12/2014 7:16 AM CDT Nayely Redd MD LAB - CHEMISTRY MINESH HAMILTON [facility] [address] [place] [address], [facility] [phone] * PFT-LAB (04/08/2014 2:52 PM CDT) Impressions [facility] - 04/08/2014 2:52 PM CDT [facility] DEPARTMENT OF PULMONARY, CRITICAL CARE AND SLEEP MEDICINE PULMONARY FUNCTION TESTS Federico Lambert 04/09/2014 INTERPRETATION: Please see technologist's comments mentioned above. SPIROMETRY: Forced vital capacity is severely decreased. FEV1 is very severely decreased. FEV1/FVC ratio is decreased. There is no significant response to bronchodilator. The inspection of the patient's flow-volume loops revealed concavity of the expiratory limb and decreased peak expiratory flow suggestive of obstruction and normal configuration of the inspiratory and expiratory limbs. IMPRESSION: 1.Very severe obstructive ventilatory limitation.. 2.Compared with a prior spirometry performed on 12/08/2013: FVC has decreased by 1.90 L and FEV1 has decreased by 700mL. Ac Zavala MD I have personally reviewed the test and revised the interpretation. Bonifacio Easton M.D., [facility] Skiff Operator of Internal Medicine Interim Director, Division of Pulmonary, Critical Care, & Sleep Medicine Director, Adult Cystic Fibrosis Program Narrative Procedure Note Provider, MD Brianna - 04/05/2018 IMPRESSION [facility] DEPARTMENT OF PULMONARY, CRITICAL CARE AND SLEEP MEDICINE PULMONARY FUNCTION TESTS Federico Lambert 04/09/2014 INTERPRETATION: Please see technologist's comments mentioned above. SPIROMETRY: Forced vital capacity is severely decreased. FEV1 is very severely decreased. FEV1/FVC ratio is decreased. There is no significant response to bronchodilator. The inspection of the patient's flow-volume loops revealed concavity of the expiratory limb and decreased peak expiratory flow suggestive of obstruction and normal configuration of the inspiratory and expiratory limbs. IMPRESSION: 1.Very severe obstructive ventilatory limitation.. 2.Compared with a prior spirometry performed on 12/08/2013: FVC has decreased by 1.90 L and FEV1 has decreased by 700mL. Ac Zavala MD I have personally reviewed the test and revised the interpretation. Bonifacio Easton M.D., [facility] Sk[employer] Operator of Internal Medicine Interim Director, Division of Pulmonary, Critical Care, & Sleep Medicine Director, Adult Cystic Fibrosis Program Bonifacio Easton MD RESPIRATORY THERAPY ORDERABLES [facility] * CT SINUS WO CONTRAST (02/22/2014 12:29 PM CDT) Anatomical Region Laterality Modality Head Other Impressions 02/22/2014 12:57 PM CDT IMPRESSION: 1. Findings consistent with acute on chronic cowan-sinusitis as detailed above with increasing opacification in the maxillary and sphenoid sinuses relative to prior sinus CT from 2010. Evidence of extensive prior sinus surgery. No overt osseous destruction or intraorbital or intracranial extension is seen on this non-contrast CT examination. This report was electronically signed by CHRIS WATSON M.D. on 02/22/2014 12:57 PM . Narrative 02/22/2014 12:57 PM CDT EXAMINATION: CT of the maxillofacial bones, orbits, and paranasal sinuses without contrast HISTORY: History of CVID with multiple prior sinus surgeries and history of chronic sinusitis. TECHNIQUE: CT of the maxillofacial bones, orbits, and paranasal sinuses was performed without contrast according to standard protocol. FINDINGS: Comparison is made to prior sinus CT examination from 02/09/2011. Again seen are changes of extensive sinus surgery including bilateral uncinectomies and partial ethmoidectomies. Maxillary antrostomies appear patent on the left and partially patent on the right. There is complete opacification of the frontal sinuses and near complete opacification of the sphenoid sinuses with partial opacification of the remaining ethmoid air cells as well as of the maxillary sinuses. Hyperattenuating material is present in the ethmoid, sphenoid, and maxillary sinuses centrally which may represent inspissated secretions or possibly fungal elements. No evidence of overt osseous destruction is identified. No intracranial or intraorbital extension is seen on this non-contrast study. There is hyperostosis of the bone surrounding the sinuses most pronounced in the area of the sphenoid sinuses consistent with chronic sinusitis. No gross mass lesion is identified. The degree of opacification has increased in the maxillary and sphenoid sinuses when compared with the prior CT study but is relatively unchanged in the frontal and ethmoid sinuses. Visualized portions of the brain appear unremarkable. Procedure Note Chris Watson MD - 01/26/2018 EXAMINATION: CT of the maxillofacial bones, orbits, and paranasal sinuseswithout contrast HISTORY: History of CVID with multiple prior sinus surgeries and historyof chronic sinusitis. TECHNIQUE: CT of the maxillofacial bones, orbits, and paranasal sinuseswas performed without contrast according to standard protocol. FINDINGS: Comparison is made to prior sinus CT examination from02/09/2011. Again seen are changes of extensive sinus surgery including bilateraluncinectomies and partial ethmoidectomies. Maxillary antrostomies appearpatent on the left and partially patent on the right. There is completeopacification of the frontal sinuses and near complete opacification of the sphenoid sinuses with partialopacification of the remaining ethmoid air cells as well as of themaxillary sinuses. Hyperattenuating material is present in the ethmoid,sphenoid, and maxillary sinuses centrally which may represent inspissated secretions or possibly fungal elements. Noevidence of overt osseous destruction is identified. No intracranial orintraorbital extension is seen on this non-contrast study. There ishyperostosis of the bone surrounding the sinuses most pronounced in the area of the sphenoid sinuses consistentwith chronic sinusitis. No gross mass lesion is identified. The degree ofopacification has increased in the maxillary and sphenoid sinuses whencompared with the prior CT study but is relatively unchanged in the frontal and ethmoid sinuses. Visualizedportions of the brain appear unremarkable. IMPRESSION IMPRESSION: 1. Findings consistent with acute on chronic cowan-sinusitis as detailedabove with increasing opacification in the maxillary and sphenoid sinusesrelative to prior sinus CT from 2010. Evidence of extensive prior sinussurgery. No overt osseous destruction or intraorbital or intracranial extension is seen on this non-contrast CTexamination. This report was electronically signed by CHRIS WATSON M.D. on 02/22/201412:57 PM . Wilfrido Babin MD CT ORDERABLES * XR SINUSES 3VW OR MORE (02/21/2014 5:58 PM CDT) Anatomical Region Laterality Modality Head Other Impressions 02/22/2014 9:48 AM CDT Impression: Diffuse paranasal sinus disease. A CT of the maxillary sinuses could be obtained for further evaluation. Report dictated by Robert Quispe M.D. (workforce development vice president). Dr. LOUIE Webb M.D. have personally reviewed and interpreted this examination/study. This report was electronically signed by LOUIE JAMES M.D. on 02/22/2014 9:48 AM . Narrative 02/22/2014 9:48 AM CDT Exam: XR SINUSES 3+ VW Date: 02/21/2014 5:58 PM History: worsening congestion and SOB, common variable immune deficiency, history of sinus surgery Comparison: Comparison is made with a CT of the face dated 02/09/2011. Findings: There is partial opacification of the right maxillary sinus. Diffuse opacification of the frontal sinuses is noted. Multiple dental restorations are visible. Procedure Note Louie James MD - 01/26/2018 Exam: XR SINUSES 3+ VW Date: 02/21/2014 5:58 PM History: worsening congestion and SOB, common variable immune deficiency,history of sinus surgery Comparison: Comparison is made with a CT of the face dated 02/09/2011. Findings: There is partial opacification of the right maxillary sinus. Diffuseopacification of the frontal sinuses is noted. Multiple dentalrestorations are visible. IMPRESSION Impression: Diffuse paranasal sinus disease. A CT of the maxillary sinuses could beobtained for further evaluation. Report dictated by Robert Quispe M.D. (workforce development vice president). Dr. LOUIE Webb M.D. have personally reviewed and interpreted thisexamination/study. This report was electronically signed by LOUIE JAMES M.D. on02/22/2014 9:48 AM . Wilfrido Babin MD DIAGNOSTIC IMAGING O RDERABLES * CULTURE MRSA (02/21/2014 11:37 AM CDT) Culture MRSA Screen No Growth of Methicillin Resistant Staphylococcus aureus. [facility] Nasal SPECIMEN FROM NASOPHARYNGEAL STRUCTURE / Unknown 02/21/2014 11:37 AM CDT 02/21/2014 11:46 AM CDT Narrative [facility] - 02/22/2014 1:27 PM CDT Specimen Type->Nasal Swab Wilfrido Babin MD LAB - MICROBIOLOGY O RDERABLES Performing Organization Address [facility]/ZIP Co de Phone Number [address] [phone] * (ABNORMAL) BLOOD GASES TESSA (02/20/2014 11:02 PM CDT) pH Mixed Venous 7.40 7.30 - 7.40 [facility] pCO2 Mixed Venous 35(L) 40 - 46 mmHg [facility] pO2 Mixed Venous 53(H) 35 - 42 mmHg [facility] HCO3 Mixed Venous 20.7(L) 22.0 - 26.0 mmol/L [facility] TCO2 Mixed Venous 21.7(L) 25.0 - 29.0 mmol/L [facility] Base Excess Venous -3.0(L) -2.0 - 2.0 mmol/L [facility] Hemoglobin Mixed Venous 12.9 12.0 - 15.5 g/dL [facility] Oxyhemoglobin Mixed Venous 82.9(H) 66.0 - 77.0 % [facility] Carboxyhemoglobin Venous 1.5 0.0 - 3.0 % [facility] Methemoglobin 1.5 0.0 - 2.0 % [facility] FI O2 Mixed Venous 20.0 % [facility] Blood specimen (specimen) BLOOD SPECIMEN / Unknown 02/20/2014 11:02 PM CDT 02/20/2014 11:07 PM CDT Narrative [facility] - 02/21/2014 12:04 AM CDT FI02->20 Hesham Botello LAB - BLOOD GASES ORDERABLES [address] [phone] * CK + CKMB PANEL (02/20/2014 11:02 PM CDT) CK Total 93 30 - 200 Units/L [facility] CK-MB 2.3 0.0 - 6.6 ng/mL [facility] Blood specimen (specimen) BLOOD SPECIMEN / Unknown 02/20/2014 11:02 PM CDT 02/20/2014 11:07 PM CDT Hesham Botello LAB - CHEMISTRY OR DERABLES [place] [id number] [address] [phone] * ANTIPHOSPHOLIPID ANTIBODY PANEL (01/19/2014 11:31 AM CDT) Cardiolipin Antibody IgG <14 <=14 [facility] Comment: Cardiolipin Ab (IgG) Reference range: Value Units Interpretation <=14 GPL Negative 15-20 GPL Indeterminate 21-80 GPL Low to Medium Positive >80 GPL High Positive Test Performed at: [facility] [address] [id number] ROMAN SUAREZ MD Cardiolipin Antibody IgA <11 <=11 APL [facility] Comment: Cardiolipin Ab (IgA) Reference range: Value Units Interpretation <=11 APL Negative 12-20 APL Indeterminate 21-80 APL Low to Medium Positive >80 APL High Positive Cardiolipin Antibody IgM <12 <=12 MPL [facility] Comment: Cardiolipin Ab (IgM) Reference range: Value Units Interpretation <=12 MPL Negative 13-20 MPL Indeterminate 21-80 MPL Low to Medium Positive >80 MPL High Positive Phosphatidylserine Antibody IgG <10 <10 U/mL [facility] Phosphatidylserine Antibody IgM <25 <25 U/mL [facility] Phosphatidylserine Antibody IgA <20 <20 U/mL [facility] Comment: Phosphatidylserine (IgG) Reference range: <10 U/mL Negative 10-20 U/mL Equivocal - Found in small percentage of the healthy population; may be reactive >20 U/mL Positive - Risk factor for thrombosis and loss. Phosphatidylserine (IgM) Reference range: <25 U/mL Negative 25-35 U/mL Equivocal - Found in small percentage of the healthy population; may be reactive >35 U/mL Positive - Risk factor for thrombosis and loss Phosphatidylserine (IgA) Reference range: <20 U/mL Negative 20-30 U/mL Equivocal - Found in small percentage of the healthy population; may be reactive >30 U/mL Positive - Risk factor for thrombosis Beta-2 Glycoprotein 1 Antibody IgA <9 <=20 [facility]IL[facility] Beta-2 Glycoprotein 1 Antibody IgM <9 <=20 [facility] Beta-2 Glycoprotein 1 Antibody 1 IgG <9 <=20 [facility] Interpretive Comments see note [facility] Comment: The Antiphospholipid Antibody Syndrome (APS) is a clinical-pathologic correlation that includes a clinical event (e.g. thrombosis, loss, thrombocytopenia) and persistent positive Antiphospholipid Antibodies (IgM or IgG TOMMIE >40 MPL/GPL, IgM or IgG anti-B2GPI antibodies, or a Lupus Anticoagulant). The IgA isotype has been implicated in smaller studies, but have not yet been incorporated into the APS criteria. International consensus guidelines suggest waiting at least 12 weeks before retesting to confirm antibody persistence. Reference J Thromb Haemost 2006: 4; 295 01/19/2014 11:3 1 AM CDT 01/19/2014 11:33 AM CDT Bonifacio Easton MD LAB - SEROLOGY ORDER ROMINA [facility] * [place] SCREEN IFA+LUPUS PANEL (12/16/2013 12:39 PM TOOL CRIB LEAD) [place] Screen NEGATIVE NEGATIVE [facility] Comment: INTERPRETATION A negative [place], IFA indicates that numerous analytes associated with connective tissue disease, including lupus erythematosus, are negative. Test Performed at: [facility] [id number] [place] [address] HESHAM HOOKS DO,MPH 12/16/2013 12:3 9 PM TOOL CRIB LEAD 12/16/2013 12:39 PM TOOL CRIB LEAD Stanley Quezada MD LAB - SEROLOGY ORDER ROMINA [facility] * COMPLETE PFT W/WO BRONCHODILATOR (12/08/2013 11:16 AM TOOL CRIB LEAD) Impressions [facility] - 12/08/2013 11:16 AM TOOL CRIB LEAD [facility] DEPARTMENT OF PULMONARY, CRITICAL CARE, AND SLEEP MEDICINE PULMONARY FUNCTION TESTS Federico Lambert 12/09/2013 INTERPRETATION Please see technologist's comments mentioned above. SPIROMETRY: Forced vital capacity is normal. FEV1 is severely reduced. FEV1/FVC ratio is reduced. There is a significant response to bronchodilator therapy in FVC of 420 mL (12%). The inspection of the patient's flow-volume loops shows severe reduction of forced expiratory volume and concavity of the expiratory limbs. LUNG VOLUMES: Lung volumes by body plethysmography show severe Air trapping and mild hyperinflation. DLCO: Diffusing capacity adjusted for Hb and COHb is increased above the normal range. AIRWAY RESISTANCE: The airway resistance is increased and the specific conductance is decreased. There is a significant response to bronchodilator therapy. IMPRESSION: 1. Severe obstructive ventilatory limitation. 2. There is a significant response to bronchodilator therapy. 3. Severe air trapping. 4. Diffusion capacity adjusted for hemoglobin and carboxyhemoglobin is increased, possible causes can be obesity, polycythemia, asthma etc. Clinical correlation is advised. 5. The airway resistance is increased and the specific conductance is decreased. There is a significant response to bronchodilator therapy. 6. There is no previous study available for comparison. Delvis Neri MD ATTENDING PHYSICIAN ATTESTATION/LICHA HOOD M.D.: I have personally reviewed and interpreted the above test and I have made the necessary changes if needed to the above interpretation. Narrative Procedure Note ProviderBrianna MD - 04/05/2018 IMPRESSION [facility] DEPARTMENT OF PULMONARY, CRITICAL CARE, AND SLEEP MEDICINE PULMONARY FUNCTION TESTS Federico Lambert 12/09/2013 INTERPRETATION Please see technologist's comments mentioned above. SPIROMETRY: Forced vital capacity is normal. FEV1 is severely reduced. FEV1/FVC ratio is reduced. There is a significant response to bronchodilator therapy in FVC of 420 mL (12%). The inspection of the patient's flow-volume loops shows severe reduction of forced expiratory volume and concavity of the expiratory limbs. LUNG VOLUMES: Lung volumes by body plethysmography show severe Air trapping and mild hyperinflation. DLCO: Diffusing capacity adjusted for Hb and COHb is increased above the normal range. AIRWAY RESISTANCE: The airway resistance is increased and the specific conductance is decreased. There is a significant response to bronchodilator therapy. IMPRESSION: 1. Severe obstructive ventilatory limitation. 2. There is a significant response to bronchodilator therapy. 3. Severe air trapping. 4. Diffusion capacity adjusted for hemoglobin and carboxyhemoglobin is increased, possible causes can be obesity, polycythemia, asthma etc. Clinical correlation is advised. 5. The airway resistance is increased and the specific conductance is decreased. There is a significant response to bronchodilator therapy. 6. There is no previous study available for comparison. Delvis Neri MD ATTENDING PHYSICIAN ATTESTATION/LICHA HOOD M.D.: I have personally reviewed and interpreted the above test and I have made the necessary changes if needed to the above interpretation. Bonifacio Easton MD RESPIRATORY THERAPY ORDERABLES [facility] * [place] ANTIBODY A PANEL (10/20/2013 12:03 PM TOOL CRIB LEAD) [facility] [place] A Serum 2 <1:8 [facility] [place] A Serum 4 <1:8 [facility] [place] A Serum 7 <1:8 [facility] [place] A Serum 9 <1:8 [facility] [place] A Serum 10 <1:8 [facility] [place] A Serum 16 <1:8 [facility] Comment: REFERENCE RANGE: <1:8 INTERPRETIVE CRITERIA: <1:8 Antibody Not Detected > or = 1:8 Antibody Detected Single titers of > or = 1:32 are indicative of recent infection. Titers of 1:8 or 1:16 may be indicative of either past or recent infection, since CF antibody levels persist for only a few months. A four-fold or greater increase in titer between acute and convalescent specimens confirms the diagnosis. There is considerable crossreactivity among enteroviruses; however, the highest titer is usually associated with the infecting serotype. This test was developed and its performance characteristics have been determined by [employer]. Performance characteristics refer to the analytical performance of the test. Test Performed at: [facility] [address] [place] [phone] RAVINDER QUINTANILLA MD,PHD 10/20/2013 12:0 3 PM TOOL CRIB LEAD 10/20/2013 12:03 PM TOOL CRIB LEAD Judy Hebert MD LAB - SEROLOGY ORDER ROMINA Performing Organization Address [facility] de Phone Number [facility] * (ABNORMAL) PARVOVIRUS B19 IGG/IGM AB PANEL (10/20/2013 12:03 PM TOOL CRIB LEAD) Parvovirus B19 Antibody IgG 6.7(H) [facility] Comment: REFERENCE RANGE: <0.9 INTERPRETIVE CRITERIA: <0.9 Negative 0.9 - 1.1 Equivocal >1.1 Positive IgG persists for years and provides life-long immunity. To diagnose current infection, consider Parvovirus B19 DNA, PCR. Test Performed at: [facility] [address] [place] [phone] RAVINDER QUINTANILLA MD,PHD Parvovirus B19 Antibody IgM <0.1 [facility] Comment: REFERENCE RANGE: <0.9 INTERPRETIVE CRITERIA: <0.9 Negative 0.9 - 1.1 Equivocal >1.1 Positive Results from any one IgM assay should not be used as a sole determinant of a current or recent infection. Because IgM tests can yield false positive results and low levels of IgM antibody may persist for months post infection, reliance on a single test result could be misleading. If an acute infection is suspected, consider obtaining a new specimen and submit for both IgG and IgM testing in two or more weeks. To diagnose current infection, consider Parvovirus B19 DNA, PCR. 10/20/2013 12:0 3 PM TOOL CRIB LEAD 10/20/2013 12:03 PM TOOL CRIB LEAD Judy Hebert MD LAB - SEROLOGY ORDER ROMINA Performing Organization Address [facility] de Phone Number [facility] * VIRAL CULTURE STOOL (09/30/2013 1:45 PM TOOL CRIB LEAD) Pathologist [facility] Culture Viral Tissue No virus isolated. . [facility] Comment: Performed at: [address] [id number] Adoption Agent: Hesham Stout MD, Phone: [phone] Preliminary Report: No virus isolated at 4 days. Next report to follow after 7 days. Performed at: [address] [id number] Adoption Agent: Hesham Stout MD, Phone: [phone] Preliminary Report: No virus isolated at 24 hours. Next report to follow after 4 days. Performed at: [address] [id number] Adoption Agent: Hesham Stout MD, Phone: [phone] !! EDITED OR CORRECTED RESULTS !! RESULT PREVIOUSLY REPORTED : Preliminary Report: No virus isolated at 24 hours. Next report to follow after 4 days. Performed at: [address] [id number] Adoption Agent: Hesham Stout MD, Phone: [phone] NOTIFIED [] AT 1556 ON 10/06/13 !! EDITED OR CORRECTED RESULTS !! RESULT PREVIOUSLY REPORTED : Preliminary Report: No virus isolated at 4 days. Next report to follow after 7 days. Performed at: [address] [id number] Adoption Agent: Hesham Stout MD, Phone: [phone] Preliminary Report: No virus isolated at 24 hours. Next report to follow after 4 days. Performed at: [address] [id number] Adoption Agent: Hesham Stout MD, Phone: [phone] !! EDITED OR CORRECTED RESULTS !! RESULT PREVIOUSLY REPORTED : Preliminary Report: No virus isolated at 24 hours. Next report to follow after 4 days. Performed at: [address] [id number] Adoption Agent: Hesham Stout MD, Phone: [phone] NOTIFIED [] AT 1556 ON 10/06/13 NOTIFIED [] AT 1327 ON 10/09/13 Unspecified 09/30/2013 1:45 PM TOOL CRIB LEAD 09/30/2013 4:13 PM TOOL CRIB LEAD Narrative [facility] - 10/09/2013 1:27 PM TOOL CRIB LEAD SPECIMEN SOURCE? TISSUE Roman Braun LAB - MICROBIOLOGY O RDERABLES [facility] [address] [phone] * XR CHEST 2VW PNEUMONIA PROTCL (09/26/2013 5:40 PM TOOL CRIB LEAD) Anatomical Region Laterality Modality Other Impressions 09/27/2013 10:14 AM TOOL CRIB LEAD Impression: 1. No acute pulmonary disease. Report dictated by Robert Quispe M.D. (workforce development vice president). This report was approved by Robert Quispe M.D. on 09/27/2013 7:[address] NANCY Webb M.D. have personally reviewed and interpreted this examination/study. This report was electronically signed by NANCY HOLGUIN M.D. on 09/27/2013 10:14 AM . Narrative 09/27/2013 10:14 AM TOOL CRIB LEAD Exam: XR CHEST PA AND LATERAL PNEU PROTOCOL Date: 09/26/2013 5:35 PM History: cough Comparison: Comparison is made with a prior study dated 09/18/2013 Findings: A right internal jugular venous access port terminates in the superior vena cava. No focal consolidation, pleural effusion, or pneumothorax is identified. The heart size and mediastinal contours are normal. The visible bony thorax is intact. Procedure Note Nancy Holguin MD - 01/26/2018 Exam: XR CHEST PA AND LATERAL PNEU PROTOCOL Date: 09/26/2013 5:35 PM History: cough Comparison: Comparison is made with a prior study dated 09/18/2013 Findings: A right internal jugular venous access port terminates in the superiorvena cava. No focal consolidation, pleural effusion, or pneumothorax is identified.The heart size and mediastinal contours are normal. The visible bonythorax is intact. IMPRESSION Impression: 1. No acute pulmonary disease. Report dictated by Robert Quispe M.D. (workforce development vice president). This report was approved by Robert Quispe M.D. on 09/27/2013 7:[address] NANCY Webb M.D. have personally reviewed and interpreted thisexamination/study. This report was electronically signed by NANCY HOLGUIN M.D. on09/27/2013 10:14 AM . Hesham Hernandez Chris DIAGNOSTIC IMAGING ORDERABLES * EOSINOPHIL URINE SMEAR (09/18/2013 9:15 PM TOOL CRIB LEAD) Eosin Stain Urine NO EOSINOPHILS SEEN [facility] 09/18/2013 9:15 PM TOOL CRIB LEAD 09/18/2013 10:05 PM TOOL CRIB LEAD Jaya Almazan MD LAB - URINE CHEMISTR Y ORDERABLES Performing Organization Address City/State/[facility] Co de Phone Number [address] [phone] * IR KOSTAS CATH INSERT (09/09/2013 11:27 AM TOOL CRIB LEAD) Anatomical Region Laterality Modality Other Impressions 09/09/2013 5:15 PM TOOL CRIB LEAD Impression: Placement of a dual-lumen 8 Filipino lumen chest port, via right internal jugular vein, under fluoroscopic guidance, as described above. Note: Keep the dressing clean and dry for 5 days. Recommended port access after 5 days to minimize infection and allow better healing. Dr. Martinez was present and performed/supervised the entire procedure. This report was electronically signed by ALISSON MARTINEZ M.D. on 09/09/2013 5:15 PM . Narrative 09/09/2013 5:15 PM TOOL CRIB LEAD History: 43-year-old female with immunodeficiency syndrome. Double lumen port placement requested for antibiotic infusion. Indication: Port-A-Cath placement for antibiotic infusion. Operators: Dr. Martinez, Attending Physician Anesthesia: 1. Local anesthesia - 30 ml of 1 % lidocaine 2. Intravenous Conscious Sedation (Versed 2 mg and Fentanyl 100 mcg). Procedure: 1. Ultrasound-guided access of right internal jugular vein. 2. Creation of subcutaneous pocket and subcutaneous tunnel on the right chest. 3. Placement of Single Lumen 6 Filipino chest port via right internal jugular vein approach under fluoroscopic monitoring. Duration of the procedure: Appx 30 minutes. Fluoroscopy time: Less than one minutes. Procedure in detail: The procedure, risks and possible complications were explained to the patient in detail, and an informed consent was obtained. The patient was placed supine on the angiographic table. The patient was as prophylactic antibiotic. The right neck and upper chest were prepped and draped in the usual sterile manner. The patient received Intravenous Versed and Fentanyl for conscious sedation. A qualified radiology nurse monitored the patient?s vital signs throughout the procedure. Limited ultrasound of right lower neck demonstrated a patent and compressible internal jugular vein. A croft scale image was documented. After instillation with 1 % local lidocaine, a small incision was made in the right lower neck. Under real time ultrasound guidance, using a micropuncture needle, the right internal jugular vein was accessed. The needle entry was documented. Following a series of exchanges, a 0.035 wire was advanced through the right atrium into the IVC.? Following administration of 1 % local lidocaine anesthesia, a skin incision was made over the right upper chest and a subcutaneous pocket was created using blunt and sharp dissection techniques. Using a tunneling device, the catheter was tunneled from the pocket to the venotomy site in the right neck, after infiltrating 1% local lidocaine anesthesia along the tunnel. A 8 Filipino peel-away sheath and dilator combination was advanced over the guidewire into the right atrium, under fluoroscopic guidance. The guidewire and the dilator were removed and the catheter was advanced through the peel-away sheath into the right atrium with the patient suspending respiration. The peel-away was then removed. The catheter was cut to appropriate length and was connected to port and was placed in the pocket. The port was accessed, aspirated and flushed easily. Appropriate amount of heparin and was placed in the port as per the protocol. The pocket was closed in layers using 3.0 and 4.0 vicryl suture materials. The neck incision was closed with dermabond. A sterile dressing was applied. A final film was obtained, which revealed the port in right chest and the tip of the catheter in right atrium in good position with no kink along the course of the catheter. The patient tolerated the procedure well was transferred in stable condition. There were no immediate complications associated with the procedure. Procedure Note Alisson Martinez MD - 01/26/2018 History: 43-year-old female with immunodeficiency syndrome. Double lumenport placement requested for antibiotic infusion. Indication: Port-A-Cath placement for antibiotic infusion. Operators: Dr. Martinez, Attending Physician Anesthesia: 1. Local anesthesia - 30 ml of 1 % lidocaine 2. Intravenous Conscious Sedation (Versed 2 mg and Fentanyl 100 mcg). Procedure: 1. Ultrasound-guided access of right internal jugular vein. 2. Creation of subcutaneous pocket and subcutaneous tunnel on the rightchest. 3. Placement of Single Lumen 6 Filipino chest port via right internaljugular vein approach under fluoroscopic monitoring. Duration of the procedure: Appx 30 minutes. Fluoroscopy time: Less than one minutes. Procedure in detail: The procedure, risks and possible complications wereexplained to the patient in detail, and an informed consent was obtained.The patient was placed supine on the angiographic table. The patient wasas prophylactic antibiotic. The right neck and upper chest were prepped and draped in the usualsterile manner. The patient received Intravenous Versed and Fentanyl for conscioussedation. A qualified radiology nurse monitored the patient?s vital signsthroughout the procedure. Limited ultrasound of right lower neck demonstrated a patent andcompressible internal jugular vein. A croft scale image was documented.After instillation with 1 % local lidocaine, a small incision was made inthe right lower neck. Under real time ultrasound guidance, using a micropuncture needle, the right internaljugular vein was accessed. The needle entry was documented. Following aseries of exchanges, a 0.035 wire was advanced through the right atriuminto the IVC.? Following administration of 1 % local lidocaine anesthesia, a skinincision was made over the right upper chest and a subcutaneous pocket wascreated using blunt and sharp dissection techniques. Using a tunnelingdevice, the catheter was tunneled from the pocket to the venotomy site in the right neck, after infiltrating 1%local lidocaine anesthesia along the tunnel. A 8 Filipino peel-away sheathand dilator combination was advanced over the guidewire into the rightatrium, under fluoroscopic guidance. The guidewire and the dilator were removed and the catheter was advancedthrough the peel-away sheath into the right atrium with the patientsuspending respiration. The peel-away was then removed. The catheter wascut to appropriate length and was connected to port and was placed in the pocket. The port was accessed,aspirated and flushed easily. Appropriate amount of heparin and was placedin the port as per the protocol. The pocket was closed in layers using3.0 and 4.0 vicryl suture materials. The neck incision was closed with dermabond. A sterile dressing wasapplied. A final film was obtained, which revealed the port in right chest and thetip of the catheter in right atrium in good position with no kink alongthe course of the catheter. The patient tolerated the procedure well wastransferred in stable condition. There were no immediate complications associated with the procedure. IMPRESSION Impression: Placement of a dual-lumen 8 Filipino lumen chest port, via rightinternal jugular vein, under fluoroscopic guidance, as described above. Note: Keep the dressing clean and dry for 5 days. Recommended port accessafter 5 days to minimize infection and allow better healing. Dr. Martinez was present and performed/supervised the entire procedure. This report was electronically signed by ALISSON MARTINEZ M.D. on09/09/2013 5:15 PM . Wilfrido Babin MD IR ORDERABLES * IR PICC LINE INSERT (09/09/2013 11:27 AM TOOL CRIB LEAD) Anatomical Region Laterality Modality Other Impressions 09/09/2013 5:15 PM TOOL CRIB LEAD Impression: Placement of a dual-lumen 8 Filipino lumen chest port, via right internal jugular vein, under fluoroscopic guidance, as described above. Note: Keep the dressing clean and dry for 5 days. Recommended port access after 5 days to minimize infection and allow better healing. Dr. Martinez was present and performed/supervised the entire procedure. This report was electronically signed by ALISSON MARTINEZ M.D. on 09/09/2013 5:15 PM . Narrative 09/09/2013 5:15 PM TOOL CRIB LEAD History: 43-year-old female with immunodeficiency syndrome. Double lumen port placement requested for antibiotic infusion. Indication: Port-A-Cath placement for antibiotic infusion. Operators: Dr. Martinez, Attending Physician Anesthesia: 1. Local anesthesia - 30 ml of 1 % lidocaine 2. Intravenous Conscious Sedation (Versed 2 mg and Fentanyl 100 mcg). Procedure: 1. Ultrasound-guided access of right internal jugular vein. 2. Creation of subcutaneous pocket and subcutaneous tunnel on the right chest. 3. Placement of Single Lumen 6 Filipino chest port via right internal jugular vein approach under fluoroscopic monitoring. Duration of the procedure: Appx 30 minutes. Fluoroscopy time: Less than one minutes. Procedure in detail: The procedure, risks and possible complications were explained to the patient in detail, and an informed consent was obtained. The patient was placed supine on the angiographic table. The patient was as prophylactic antibiotic. The right neck and upper chest were prepped and draped in the usual sterile manner. The patient received Intravenous Versed and Fentanyl for conscious sedation. A qualified radiology nurse monitored the patient?s vital signs throughout the procedure. Limited ultrasound of right lower neck demonstrated a patent and compressible internal jugular vein. A croft scale image was documented. After instillation with 1 % local lidocaine, a small incision was made in the right lower neck. Under real time ultrasound guidance, using a micropuncture needle, the right internal jugular vein was accessed. The needle entry was documented. Following a series of exchanges, a 0.035 wire was advanced through the right atrium into the IVC.? Following administration of 1 % local lidocaine anesthesia, a skin incision was made over the right upper chest and a subcutaneous pocket was created using blunt and sharp dissection techniques. Using a tunneling device, the catheter was tunneled from the pocket to the venotomy site in the right neck, after infiltrating 1% local lidocaine anesthesia along the tunnel. A 8 Filipino peel-away sheath and dilator combination was advanced over the guidewire into the right atrium, under fluoroscopic guidance. The guidewire and the dilator were removed and the catheter was advanced through the peel-away sheath into the right atrium with the patient suspending respiration. The peel-away was then removed. The catheter was cut to appropriate length and was connected to port and was placed in the pocket. The port was accessed, aspirated and flushed easily. Appropriate amount of heparin and was placed in the port as per the protocol. The pocket was closed in layers using 3.0 and 4.0 vicryl suture materials. The neck incision was closed with dermabond. A sterile dressing was applied. A final film was obtained, which revealed the port in right chest and the tip of the catheter in right atrium in good position with no kink along the course of the catheter. The patient tolerated the procedure well was transferred in stable condition. There were no immediate complications associated with the procedure. Procedure Note Alisson Martinez MD - 01/26/2018 History: 43-year-old female with immunodeficiency syndrome. Double lumenport placement requested for antibiotic infusion. Indication: Port-A-Cath placement for antibiotic infusion. Operators: Dr. Martinez, Attending Physician Anesthesia: 1. Local anesthesia - 30 ml of 1 % lidocaine 2. Intravenous Conscious Sedation (Versed 2 mg and Fentanyl 100 mcg). Procedure: 1. Ultrasound-guided access of right internal jugular vein. 2. Creation of subcutaneous pocket and subcutaneous tunnel on the rightchest. 3. Placement of Single Lumen 6 Filipino chest port via right internaljugular vein approach under fluoroscopic monitoring. Duration of the procedure: Appx 30 minutes. Fluoroscopy time: Less than one minutes. Procedure in detail: The procedure, risks and possible complications wereexplained to the patient in detail, and an informed consent was obtained.The patient was placed supine on the angiographic table. The patient wasas prophylactic antibiotic. The right neck and upper chest were prepped and draped in the usualsterile manner. The patient received Intravenous Versed and Fentanyl for conscioussedation. A qualified radiology nurse monitored the patient?s vital signsthroughout the procedure. Limited ultrasound of right lower neck demonstrated a patent andcompressible internal jugular vein. A croft scale image was documented.After instillation with 1 % local lidocaine, a small incision was made inthe right lower neck. Under real time ultrasound guidance, using a micropuncture needle, the right internaljugular vein was accessed. The needle entry was documented. Following aseries of exchanges, a 0.035 wire was advanced through the right atriuminto the IVC.? Following administration of 1 % local lidocaine anesthesia, a skinincision was made over the right upper chest and a subcutaneous pocket wascreated using blunt and sharp dissection techniques. Using a tunnelingdevice, the catheter was tunneled from the pocket to the venotomy site in the right neck, after infiltrating 1%local lidocaine anesthesia along the tunnel. A 8 Filipino peel-away sheathand dilator combination was advanced over the guidewire into the rightatrium, under fluoroscopic guidance. The guidewire and the dilator were removed and the catheter was advancedthrough the peel-away sheath into the right atrium with the patientsuspending respiration. The peel-away was then removed. The catheter wascut to appropriate length and was connected to port and was placed in the pocket. The port was accessed,aspirated and flushed easily. Appropriate amount of heparin and was placedin the port as per the protocol. The pocket was closed in layers using3.0 and 4.0 vicryl suture materials. The neck incision was closed with dermabond. A sterile dressing wasapplied. A final film was obtained, which revealed the port in right chest and thetip of the catheter in right atrium in good position with no kink alongthe course of the catheter. The patient tolerated the procedure well wastransferred in stable condition. There were no immediate complications associated with the procedure. IMPRESSION Impression: Placement of a dual-lumen 8 Filipino lumen chest port, via rightinternal jugular vein, under fluoroscopic guidance, as described above. Note: Keep the dressing clean and dry for 5 days. Recommended port accessafter 5 days to minimize infection and allow better healing. Dr. Martinez was present and performed/supervised the entire procedure. This report was electronically signed by ALISSON MARTINEZ M.D. on09/09/2013 5:15 PM . Wilfrido Babin MD IR ORDERABLES * IR US GUIDE VASCULAR ACCESS (09/09/2013 11:27 AM TOOL CRIB LEAD) Anatomical Region Laterality Modality Other Impressions 09/09/2013 5:15 PM TOOL CRIB LEAD Impression: Placement of a dual-lumen 8 Filipino lumen chest port, via right internal jugular vein, under fluoroscopic guidance, as described above. Note: Keep the dressing clean and dry for 5 days. Recommended port access after 5 days to minimize infection and allow better healing. Dr. Martinez was present and performed/supervised the entire procedure. This report was electronically signed by ALISSON MARTINEZ M.D. on 09/09/2013 5:15 PM . Narrative 09/09/2013 5:15 PM TOOL CRIB LEAD History: 43-year-old female with immunodeficiency syndrome. Double lumen port placement requested for antibiotic infusion. Indication: Port-A-Cath placement for antibiotic infusion. Operators: Dr. Martinez, Attending Physician Anesthesia: 1. Local anesthesia - 30 ml of 1 % lidocaine 2. Intravenous Conscious Sedation (Versed 2 mg and Fentanyl 100 mcg). Procedure: 1. Ultrasound-guided access of right internal jugular vein. 2. Creation of subcutaneous pocket and subcutaneous tunnel on the right chest. 3. Placement of Single Lumen 6 Filipino chest port via right internal jugular vein approach under fluoroscopic monitoring. Duration of the procedure: Appx 30 minutes. Fluoroscopy time: Less than one minutes. Procedure in detail: The procedure, risks and possible complications were explained to the patient in detail, and an informed consent was obtained. The patient was placed supine on the angiographic table. The patient was as prophylactic antibiotic. The right neck and upper chest were prepped and draped in the usual sterile manner. The patient received Intravenous Versed and Fentanyl for conscious sedation. A qualified radiology nurse monitored the patient?s vital signs throughout the procedure. Limited ultrasound of right lower neck demonstrated a patent and compressible internal jugular vein. A croft scale image was documented. After instillation with 1 % local lidocaine, a small incision was made in the right lower neck. Under real time ultrasound guidance, using a micropuncture needle, the right internal jugular vein was accessed. The needle entry was documented. Following a series of exchanges, a 0.035 wire was advanced through the right atrium into the IVC.? Following administration of 1 % local lidocaine anesthesia, a skin incision was made over the right upper chest and a subcutaneous pocket was created using blunt and sharp dissection techniques. Using a tunneling device, the catheter was tunneled from the pocket to the venotomy site in the right neck, after infiltrating 1% local lidocaine anesthesia along the tunnel. A 8 Filipino peel-away sheath and dilator combination was advanced over the guidewire into the right atrium, under fluoroscopic guidance. The guidewire and the dilator were removed and the catheter was advanced through the peel-away sheath into the right atrium with the patient suspending respiration. The peel-away was then removed. The catheter was cut to appropriate length and was connected to port and was placed in the pocket. The port was accessed, aspirated and flushed easily. Appropriate amount of heparin and was placed in the port as per the protocol. The pocket was closed in layers using 3.0 and 4.0 vicryl suture materials. The neck incision was closed with dermabond. A sterile dressing was applied. A final film was obtained, which revealed the port in right chest and the tip of the catheter in right atrium in good position with no kink along the course of the catheter. The patient tolerated the procedure well was transferred in stable condition. There were no immediate complications associated with the procedure. Procedure Note Alisson Martinez MD - 01/26/2018 History: 43-year-old female with immunodeficiency syndrome. Double lumenport placement requested for antibiotic infusion. Indication: Port-A-Cath placement for antibiotic infusion. Operators: Dr. Martinez, Attending Physician Anesthesia: 1. Local anesthesia - 30 ml of 1 % lidocaine 2. Intravenous Conscious Sedation (Versed 2 mg and Fentanyl 100 mcg). Procedure: 1. Ultrasound-guided access of right internal jugular vein. 2. Creation of subcutaneous pocket and subcutaneous tunnel on the rightchest. 3. Placement of Single Lumen 6 Filipino chest port via right internaljugular vein approach under fluoroscopic monitoring. Duration of the procedure: Appx 30 minutes. Fluoroscopy time: Less than one minutes. Procedure in detail: The procedure, risks and possible complications wereexplained to the patient in detail, and an informed consent was obtained.The patient was placed supine on the angiographic table. The patient wasas prophylactic antibiotic. The right neck and upper chest were prepped and draped in the usualsterile manner. The patient received Intravenous Versed and Fentanyl for conscioussedation. A qualified radiology nurse monitored the patient?s vital signsthroughout the procedure. Limited ultrasound of right lower neck demonstrated a patent andcompressible internal jugular vein. A croft scale image was documented.After instillation with 1 % local lidocaine, a small incision was made inthe right lower neck. Under real time ultrasound guidance, using a micropuncture needle, the right internaljugular vein was accessed. The needle entry was documented. Following aseries of exchanges, a 0.035 wire was advanced through the right atriuminto the IVC.? Following administration of 1 % local lidocaine anesthesia, a skinincision was made over the right upper chest and a subcutaneous pocket wascreated using blunt and sharp dissection techniques. Using a tunnelingdevice, the catheter was tunneled from the pocket to the venotomy site in the right neck, after infiltrating 1%local lidocaine anesthesia along the tunnel. A 8 Filipino peel-away sheathand dilator combination was advanced over the guidewire into the rightatrium, under fluoroscopic guidance. The guidewire and the dilator were removed and the catheter was advancedthrough the peel-away sheath into the right atrium with the patientsuspending respiration. The peel-away was then removed. The catheter wascut to appropriate length and was connected to port and was placed in the pocket. The port was accessed,aspirated and flushed easily. Appropriate amount of heparin and was placedin the port as per the protocol. The pocket was closed in layers using3.0 and 4.0 vicryl suture materials. The neck incision was closed with dermabond. A sterile dressing wasapplied. A final film was obtained, which revealed the port in right chest and thetip of the catheter in right atrium in good position with no kink alongthe course of the catheter. The patient tolerated the procedure well wastransferred in stable condition. There were no immediate complications associated with the procedure. IMPRESSION Impression: Placement of a dual-lumen 8 Filipino lumen chest port, via rightinternal jugular vein, under fluoroscopic guidance, as described above. Note: Keep the dressing clean and dry for 5 days. Recommended port accessafter 5 days to minimize infection and allow better healing. Dr. Martinez was present and performed/supervised the entire procedure. This report was electronically signed by ALISSON MARTINEZ M.D. on09/09/2013 5:15 PM . Wilfrido Babin MD IR ORDERABLES * VANCOMYCIN LEVEL RANDOM (09/07/2013 6:39 PM TOOL CRIB LEAD) Only the most recent of2 resultswithin the time period is included. Vancomycin Random 1.8 mcg/mL [facility] Comment:REFERENCE RANGE: NON E ESTABLISHED FOR RANDOM SPECIMENS. Venous blood specimen (specimen) 09/07/2013 6:39 PM TOOL CRIB LEAD 09/07/2013 7:23 PM TOOL CRIB LEAD Wilfrido Babin MD LAB - CHEMISTRY [facility] Performing Organization Address City/[facility] Co de Phone Number [address] [phone] * ASPERGILLUS ANTIBODY BY ID (09/05/2013 8:00 PM TOOL CRIB LEAD) Aspergillus fumigatus Negative Neg:<1:1 [facility] Aspergillus flavus Negative Neg:<1:1 [facility] Aspergillus niger Negative Neg:<1:1 [facility] Comment: Performed at: [address] [id number] Adoption Agent: Hesham Stout MD, Phone: [phone] 09/05/2013 8:00 PM TOOL CRIB LEAD 09/05/2013 9:16 PM TOOL CRIB LEAD Wilfrido Babin MD LAB - [place]MISTRY [place] [address], [facility] [phone] * COMPLETE PFT W/WO BRONCHODILATOR (08/13/2013 1:58 PM CDT) Impressions [facility] - 08/13/2013 1:58 PM CDT [facility] DEPARTMENT OF PULMONARY, CRITICAL CARE, AND SLEEP MEDICINE PULMONARY FUNCTION TESTS Federico aLmbert 08/13/2013 INTERPRETATION Please see technologist's comments mentioned above. Post bronchodilator study is variable this could affect accuracy of the result. Lung volumes are variable. SPIROMETRY: Forced vital capacity is normal. FEV1 is reduced. FEV1/FVC ratio is reduced. There is significant response to bronchodilator therapy. The inspection of the patient's flow-volume loops shows normal configuration of the inspiratory limb. However, expiratory limbs shows scooped appearance. LUNG VOLUMES: Lung volumes were performed by body plethysmography. There is severe hyperinflation based on increased RV. DLCO: Diffusing capacity unadjusted for Hb and COHb is within normal limits. AIRWAY RESISTANCE: The airway resistance is normal. However, specific conductance is reduced. IMPRESSION: 1. Obstructive ventilatory limitation with significant bronchodilator response. 2. Normal unadjusted diffusion capacity. 3. As compared to 01/2013 - post bronchodilator FEV1 has decrease by 200 ml. Juvenal Leos MD Pulmonary/Critical Care Fellow ATTENDING PHYSICIAN GM/LICHA HOOD M.D.: I have personally reviewed and interpreted the above test and I have made the necessary changes if needed to the above interpretation. Narrative Procedure Note Provider, MD Brianna - 04/05/2018 IMPRESSION [facility] DEPARTMENT OF PULMONARY, CRITICAL CARE, AND SLEEP MEDICINE PULMONARY FUNCTION TESTS Federico Lambert 08/13/2013 INTERPRETATION Please see technologist's comments mentioned above. Post bronchodilator study is variable this could affect accuracy of the result. Lung volumes are variable. SPIROMETRY: Forced vital capacity is normal. FEV1 is reduced. FEV1/FVC ratio is reduced. There is significant response to bronchodilator therapy. The inspection of the patient's flow-volume loops shows normal configuration of the inspiratory limb. However, expiratory limbs shows scooped appearance. LUNG VOLUMES: Lung volumes were performed by body plethysmography. There is severe hyperinflation based on increased RV. DLCO: Diffusing capacity unadjusted for Hb and COHb is within normal limits. AIRWAY RESISTANCE: The airway resistance is normal. However, specific conductance is reduced. IMPRESSION: 1. Obstructive ventilatory limitation with significant bronchodilator response. 2. Normal unadjusted diffusion capacity. 3. As compared to 01/2013 - post bronchodilator FEV1 has decrease by 200 ml. Juvenal Leos MD Pulmonary/Critical Care Fellow ATTENDING PHYSICIAN ATTESTATION/LICHA HOOD M.D.: I have personally reviewed and interpreted the above test and I have made the necessary changes if needed to the above interpretation. Bonifacio Easton MD RESPIRATORY THERAPY ORDERABLES [facility] * COMPLETE PFT W/WO BRONCHODILATOR (12/10/2012 10:16 AM TOOL CRIB LEAD) Impressions [facility] - 12/10/2012 10:16 AM TOOL CRIB LEAD [facility] DEPARTMENT OF PULMONARY, CRITICAL CARE AND SLEEP MEDICINE PULMONARY FUNCTION TESTS Federico Lambert 12/13/2012 INTERPRETATION Please see technologist's comments mentioned above. SPIROMETRY: Forced vital capacity is mildly decreased. FEV1 is severely reduced. FEV1/FVC ratio is also reduced. There was a significant response to bronchodilator revealed by an increase in the FEV1 and FVC of 710 and 210 ml respectively. The inspection of the patient's flow-volume loops revealed concavity of the expiratory limb and decreased peak expiratory flow suggestive of obstruction. LUNG VOLUMES: Lung volumes by body plethysmography revealed a severely increased RV. ERV is severely reduced. DLCO: Diffusing capacity unadjusted for Hb and COHb is within normal limits. AIRWAY RESISTANCE: The airway resistance increased and the reduced specific conductance are normal. ARTERIAL BLOOD GAS ANALYSIS: ABG drawn on revealed normal oxygenation and acid-base balance. IMPRESSION: 1. Severe obstructive ventilatory limitation with significant response to bronchodilator. 2. Severe air-trapping 3. Increased airway resistance and decreased specific conductance. 4. Compared with a prior PFT on 04/22/2012 there was a significant reduction in the FVC and FEV1 of 650 and 780 ml respectively. Neno García MD I have reviewed this study and agree with Dr. García's interpretation. Elvis Avilez M.D. [employer] of Internal Medicine Division of Pulmonary, Critical Care and Sleep Medicine [facility] Narrative Procedure Note Provider, MD Brianna - 04/05/2018 IMPRESSION [facility] DEPARTMENT OF PULMONARY, CRITICAL CARE AND SLEEP MEDICINE PULMONARY FUNCTION TESTS Federico Lambert 12/13/2012 INTERPRETATION Please see technologist's comments mentioned above. SPIROMETRY: Forced vital capacity is mildly decreased. FEV1 is severely reduced. FEV1/FVC ratio is also reduced. There was a significant response to bronchodilator revealed by an increase in the FEV1 and FVC of 710 and 210 ml respectively. The inspection of the patient's flow-volume loops revealed concavity of the expiratory limb and decreased peak expiratory flow suggestive of obstruction. LUNG VOLUMES: Lung volumes by body plethysmography revealed a severely increased RV. ERV is severely reduced. DLCO: Diffusing capacity unadjusted for Hb and COHb is within normal limits. AIRWAY RESISTANCE: The airway resistance increased and the reduced specific conductance are normal. ARTERIAL BLOOD GAS ANALYSIS: ABG drawn on revealed normal oxygenation and acid-base balance. IMPRESSION: 1. Severe obstructive ventilatory limitation with significant response to bronchodilator. 2. Severe air-trapping 3. Increased airway resistance and decreased specific conductance. 4. Compared with a prior PFT on 04/22/2012 there was a significant reduction in the FVC and FEV1 of 650 and 780 ml respectively. Neno García MD I have reviewed this study and agree with Dr. García's interpretation. Elvis Avilez M.D. [employer] of Internal Medicine Division of Pulmonary, Critical Care and Sleep Medicine [facility] [facility] Bonifacio Easton MD RESPIRATORY THERAPY ORDERABLES Performing Organization Address City/[facility]/ZIP Co de Phone Number [facility] RADIOLOGY * PATHOLOGY REPORTS - HPF HISTORICAL (09/11/2012 3:10 PM TOOL CRIB LEAD) Only the most recent of2 resultswithin the time period is included. 09/11/2012 3:10 PM TOOL CRIB LEAD Narrative [facility] - 09/11/2012 3:10 PM TOOL CRIB LEAD Historical Provider LAB - PATHOLOGY/C YTOLOGY ORDERABLES Performing Organization Address City/[facility]/ZIP Co de Phone Number [facility] [address] [place] [address], [facility] * VIRAL CULTURE RESPIRATORY (08/22/2012 10:30 AM CDT) [facility] Viral Culture Respiratory Deep w/CMV No virus isolated. . [facility] Comment: Performed at: [address] [id number] Adoption Agent: Hesham Stout MD, Phone: [phone] Preliminary Report: No virus isolated at 4 days. Next report to follow after 7 days. Performed at: [address] [id number] Adoption Agent: Hesham Stout MD, Phone: [phone] Preliminary Report: No virus isolated at 24 hours. Next report to follow after 4 days. Performed at: [address] [id number] Adoption Agent: Hesham Stout MD, Phone: [phone] !! EDITED OR CORRECTED RESULTS !! RESULT PREVIOUSLY REPORTED : Preliminary Report: No virus isolated at 24 hours. Next report to follow after 4 days. Performed at: [address] [id number] Adoption Agent: Hesham Stout MD, Phone: [phone] NOTIFIED [] AT 1318 ON 08/27/12 !! EDITED OR CORRECTED RESULTS !! RESULT PREVIOUSLY REPORTED : Preliminary Report: No virus isolated at 4 days. Next report to follow after 7 days. Performed at: [address] [id number] Adoption Agent: Hesham Stuot MD, Phone: [phone] Preliminary Report: No virus isolated at 24 hours. Next report to follow after 4 days. Performed at: [address] [id number] Adoption Agent: Hesham Stout MD, Phone: [phone] !! EDITED OR CORRECTED RESULTS !! RESULT PREVIOUSLY REPORTED : Preliminary Report: No virus isolated at 24 hours. Next report to follow after 4 days. Performed at: [address] [id number] Adoption Agent: Hesham Stout MD, Phone: [phone] NOTIFIED [] AT 1318 ON 08/27/12 NOTIFIED [] AT 0608 ON 09/02/12 Bronchial [place] 08/22/2012 1 0:30 AM CDT 08/22/2012 11:02 AM CDT Narrative [facility] - 08/22/2012 11:02 AM CDT VCR BAL RML Bonifacio Easton MD LAB - MICROBIOLOGY O DEMETRI Performing Organization Address City/[facility]/ZIP Co de Phone Number [address] [phone] * CULTURE LEGIONELLA (08/22/2012 10:30 AM CDT) Culture Legionella NO GROWTH LEGIONELLA SPECIES AFTER ONE WEEK. [facility] Bronchoalveolar Lavage (Lung, right lobe) 08/22/2012 10:30 AM CDT 08/22/2012 11:03 AM CDT Narrative [facility] - 08/29/2012 8:19 AM CDT CLEG BAL RML Specimen Type->Bronchoalveolar lavage Bonifacio Easton MD LAB - MICROBIOLOGY O DEMETRI Performing Organization Address [facility]/ZIP Co de Phone Number [address] [phone] * CYCLIC CITRUL PEPTIDE AB IGG (CCP) (07/02/2012 9:24 AM CDT) Only the most recent of2 resultswithin the time period is included. CCP Antibody IgG < 0.5 0.5 - 5.0 U/mL [facility] 07/02/2012 9:24 AM CDT 07/02/2012 10:04 AM CDT Sosa Ramirez MD LAB - CHEM ISTRY ORDERABLES Performing Organization Address [facility]/ZIP Co de Phone Number [address] [phone] * PATHOLOGY/GENETICS HISTORICAL-ONBASE (06/07/2012) 06/07/2012 Narrative [facility] - 05/25/2014 12:17 PM CDT Historical Provider LAB - CHEMISTRY O RDERABLES Performing Organization Address [facility]/ZIP Co de Phone Number [facility] [address] * [place] TITER AND PATTERN RFLXD (04/22/2012 11:34 AM CDT) Only the most recent of2 resultswithin the time period is included. [place] IFA Negative . [facility] Comment: Negative <1:80 Borderline 1:80 Positive >1:80 Performed at: [facility] Lab[address] [id number] Adoption Agent: Suellen Richardson MD, Phone: [phone] 04/22/2012 11:3 4 AM CDT 04/22/2012 12:05 PM CDT Bonifacio Easton MD LAB - SEROLOGY ORDER ROMINA Performing Organization Address [facility] Co de Phone Number [address] [phone] * (ABNORMAL) [place] BLOOD SCREEN (04/22/2012 11:34 AM CDT) Only the most recent of3 resultswithin the time period is included. [place] POSITIVE( A) NONE DETECT [facility] Comment:SCREENING RESULT POS ITIVE, CONFIRMATION RESULT TO FOLLOW. 04/22/2012 11:3 4 AM CDT 04/22/2012 12:05 PM CDT Bonifacio Easton MD LAB - CHEMISTRY ORDShorty HAMILTON Performing Organization Address [facility]/ZIP Co de Phone Number [address] [phone] * SPIROMETRY W BD - POCT (AMB) U (04/05/2012 11:27 AM CDT) 04/05/2012 11:2 7 AM CDT Bonifacio Easton MD LAB - POINT OF CARE ORDERABLES Performing Organization Address [facility] Co de Phone Number [facility] [address] * SPIROMETRY - POCT (AMB) [facility] (04/05/2012 10:05 AM CDT) Only the most recent of8 resultswithin the time period is included. 04/05/2012 10:0 5 AM CDT Narrative [facility] - 04/05/2012 10:05 AM CDT Spirometry done today and shows severe obstructive ventilatory limitation. There is 460 melon decrease in FVC and a 340 multis in FEV1 when compared to the test performed on January 16, 2012 Bonifacio Easton MD LAB - POINT OF CARE ORDERABLES [facility] [address] * LUPUS ANTICOAGULANT PANEL (06/30/2010 4:50 PM CDT) APTT 29.2 24.0 - 38.0 SECONDS [facility] PT 12.9 12.8 - 15.1 SECONDS [facility] INR 1.0 [facility] [place] Buffer 47.7 SECONDS [facility] [place] Phospholipid 43.2 SECONDS [facility] [place] Delta Seconds 4.5 <9.0 SECONDS [facility] Interpretation [place] NEGATIVE NEGATIVE [facility] Comment: Up to 15-20% of patients with lupus anticoagulant associated with antiphospholipid antibody syndrome (APAS) will have negative STACLOT-LA results. For these patients we recommend additional testing to include the Dilute Crow Viper Venom Time (DRVVT) and dilute prothrombin time (Dilute PT) tests. Immunoassay measurements of anti-cardiolipin and anti-beta-2 glycoprotein 1 are recommended if the DRVVT, DIL-PT and STACLOT-LA tests are negative and there is clinical suspicion of APAS. 06/30/2010 4:50 PM CDT 06/30/2010 5:51 PM CDT Narrative [facility] - 07/06/2010 5:51 PM CDT # [id number] TUBES 1 Historical Provider LAB - HEMATOLOGY ORDERABLES [address] [phone] * [place] W REFLEX DS-DNA+LEO+SSJ (06/30/2010 4:50 PM CDT) [place] IFA Negative . [facility] Comment: Negative <1:80 Borderline 1:80 Positive >1:80 Performed at: - [facility] [id number] Adoption Agent: Suellen Richardson MD, Phone: [phone] 06/30/2010 4:50 PM CDT 06/30/2010 5:51 PM CDT Narrative [facility] - 07/06/2010 5:51 PM CDT HT# [id number] TUBES 1 Historical Provider LAB - SEROLOGY OR DERABLES [address] [phone] * SCLERODERMA 70 (SCL) ANTIBODY (06/30/2010 4:50 PM CDT) SCL-70 Antibody 4.5 0.0 - 19.9 Units [facility] Comment: * PLEASE NOTE NEW REFERENCE RANGE * REFERENCE RANGE/INTERPRETATION < 20.0 Units: Negative 20.0 - 39.0 Units: Weak Positive > 39.0 Units: Positive 06/30/2010 4:50 PM CDT 06/30/2010 5:51 PM CDT Narrative [facility] - 07/06/2010 5:51 PM CDT HT# [id number] TUBES 1 Historical Provider LAB - CHEMISTRY O RDERABLES [address] [phone] * GROSS + MICRO EXAM (07/16/2009 11:30 AM CDT) Only the most recent of2 resultswithin the time period is included. Result CASE NUMBER [id number] Comment: ORDERING PHYSICIAN MELYSSA NELSON SPECIMEN TYPE Esophageal Biopsy-duo Date 07/16/2009 Physician Omar Gross Description The specimen is received in two Formalin containers labeled with the patient's name, Federico Lambert. The first container is labeled biopsy, duodenum, and consists of multiple minute to 1 mm flecks and fragments of winkler red tissue, stained, and entirely submitted in cassette A. The second container is labeled biopsy, mid-esophagus, and consists of three 1 mm flecks and fragments of pale winkler tissue, stained, and entirely submitted in cassette B. [facility] Microscopic Exam 1. Sections show fragments of duodenal mucosa with unremarkable histology. The villi are normal. No acute or chronic inflammation is seen. There is no of atypia or malignancy. 2. Sections show fragments of esophagus squamous mucosa with unremarkable histology. No inflammation is seen. No intestinal metaplasia, dysplasia, or malignancy is seen. MC/dc Diagnosis 1. Duodenum, biopsy -- No pathologic diagnosis 2. Mid esophagus, biopsy -- No pathologic diagnosis MC/dc Specialized Developer DC Pathologist Brissa Bentley M.D. [place]. 07/17/2009 0942 <2> CPT code 74380 x2 MISCELLANEOUS SAMPLES / Unknown 07/16/2009 11:30 AM CDT 07/16/2009 1:54 PM CDT Historical Provider LAB - PATHOLOGY/C YTOLOGY ORDERABLES * HELICOBACTER PYLORI UREASE (07/16/2009 11:30 AM CDT) Helicobacter pylori Screen Gastric Negative [facility] GASTRIC CONTENTS SPECIMEN / Unknown 07/16/2009 11:30 AM CDT Melyssa Nelson MD LAB - MICROBIOLOG Y ORDERABLES [facility] [address] [place] [address] * ENDOSCOPY ORDER (07/16/2009 12:00 AM CDT) 07/16/2009 Narrative Procedure Note Melyssa Nelson MD - 07/16/2009 12:[facility] [address] [place] [id number] Endoscopy Note PATIENT NAME: FEDERICO LAMBERT MR#: [id number] ADMIT DATE: 07/16/2009 DATE OF SERVICE: 07/16/2009 : 1970 PROCEDURES: Gastroscopy/colonoscopy. FARM HELPER: MD Omar PREOPERATIVE DIAGNOSIS: 1. Dyspepsia/gastroesophageal reflux disease. 2. Family history of colon polyps/colon cancer and history of irritable bowel syndrome. POSTOPERATIVE DIAGNOSIS: Gastroscopy: 1. Normal gastroscopy with a few bile-stained secretions in the stomach. Biopsies obtained in the mid-esophagus to rule out eosinophilicesophagitis. 2. CLOtest obtained. 3. Duodenal biopsies obtained to rule out celiac sprue. Colonoscopy: Normal examination; however, the bowel prep fair, in several areas poor, and this is even after a 2-day bowel prep. Complications: None apparent. CONSENT: The procedures were discussed with the patient including risks involvedof drug reaction, bleeding, perforation, possible need for emergencysurgery, and the possibly of missing colonic polyps. She understood and agreed to proceed. MALLAMPATI AIRWAY CLASSIFICATION: Class I. INSTRUMENTS: Olympus video gastroscope [id number]. Olympus pediatric video colonoscope [id number]. PREOPERATIVE MEDICATION: Per anesthesia. BOWEL PREP: Fair to poor. TIME OF WITHDRAWAL FROM CECUM TO THE RECTUM: Ten minutes. HISTORY AND INDICATION: A 39-year-old white female whom I performed a colonoscopy on in 03/2004 because of change in bowel habits. It was a normal exam, but it was libertad poor bowel prep. The patient also has a family history of colon polypsin her father and colon cancer in paternal aunt. The patient also has had chronic gastroesophageal flux disease, has beenon treatment. She has had some increased symptoms recently. We were askedto gastroscope her as well. PAST MEDICAL HISTORY: 1. Asthma. 2. Hypertension. 3. Sinusitis. 4. History of allergies. 5. Status post knee surgery. 6. Status post foot surgery. 7. Status post appendectomy. 8. Status post sinus surgery x3. MEDICATIONS: There are two pages of medications, copies in the chart and I refer youto this. The patient can resume all her medicines. ALLERGIES: To aspirin and latex, and latex-free gloves were used during theprocedure. The patient also is allergic to aspirin, Motrin, Z-Tc, penicillin. PERTINENT PHYSICAL EXAMINATION: GENERAL: Middle-aged female; awake, alert and oriented x3. LUNGS: Clear to auscultation and percussion. No wheezes. CARDIOVASCULAR: Regular rate and rhythm. No murmur. ABDOMEN: Soft. Bowel sounds are present. No masses, tenderness or hepatosplenomegaly. DESCRIPTION OF PROCEDURE: Gastroscopy report: The patient was brought to the endoscopy suite and placed in leftlateral decubitus position. Bite block was inserted. The patient's oropharynx was not anesthetized. The Olympus video gastroscope was introduced into the oropharynx under direct visualization. The posterior pharynx appeared normal. The vocal cords were not visualized secondary to secretions. The esophagus was intubated without difficulty, and the upper, mid and distal esophagus appeared normal. I obtained random biopsies in the mid esophagus x4 to rule out the possibility of eosinophilic esophagitis. The stomach was entered. There were a few bile-stained secretions, but otherwise no abnormalities were seen. The pyloric channel, duodenal bulb and second portion of the duodenum were normal. Duodenal biopsies x3 were obtainedto rule out celiac sprue. The endoscope was withdrawn into the stomach. Two biopsies obtained in the antrum for CLOtest. Retroflexed view in the stomach revealed a normal cardia and fundus. The endoscope was straightened and withdrawn, and the patient tolerated the procedurewell. The gurney was turned 180 degrees and a colonoscopy performed. Colonoscopy report: The patient was maintained in left lateral decubitus position. Rectal examination was normal. The Olympus pediatric video colonoscope was introduced into the rectumand advanced slowly through the left colon. The bowel prep was fair, several areas poor; this is after a 2- day bowel prep. I advanced into thececum. The cecal pouch had some thick formed stool; I cleared most of it as I could. No abnormalities were noted. The ileocecal valve appeared normal. I withdrew the colonoscope slowly from the cecum back into the rectum.No abnormalities were noted. No diverticula. No evidence of colitis and no polyps. Retroflexed view. No polyps. However, certainly small or flat polyps could have been missed. Retroflexion in the rectum wasnormal. The endoscope was straightened and withdrawn. The patient tolerated the procedure well. This document has been reviewed and signed by Melyssa Nelson NWF - [id number] Sign Date/Time: 07/18/2009 9:41AM Melyssa Nelson M.D. cc: Madison Jessica Melyssa Nelson MD GI PROCEDURE [facility] Teams Data Collection Interviewer Relationship Specialty Start Date End Date Theodore Zamora DO [address] [place] [id number] PCP - General Family Medicine Geriatric Medicine 04/11/23 Gerardo Angeles MD Otolaryngology 07/16/19 Edgar Piper MD Otolaryngology 07/16/19 Ruby Manzano MD Dermatology 07/16/19 Stanley Quezada MD [address] [place] [id number] Allergy and Immunology 07/16/19
--- OUTSIDE RECORDS SUMMARY | 2024-12-14 13:22 | XMS_ITS | Data Portability ---
Author Organization [facility], Main Office Address [address] [place] [address] Assessment No assessment recorded. Plan of Treatment Reminders Order Date Submit Date Provider Last Modified By Organization Details Last Modified Time Details Appointments None recorded. Lab vitamin B12 + folate, serum or blood 2022 023 [facility], [address], [place], [address], 3 10:22:59 TSH + free T4, serum 2022 023 [facility], [address] Sydni [address], [address], [place], [address], 3 10:23:00 T3, free, serum or plasma 2022 023 [facility], [address], [place], [address], 3 10:23:00 CMP, serum or plasma 2022 023 [facility], [address], [place], [address], 3 10:23:00 thyroid peroxidase (tpo) Ab, serum 2022 023 [facility], [address], [place], [address], 3 10:22:59 Referral None recorded. Procedures None recorded. Surgeries None recorded. Imaging None recorded. Medication Orders Dodex 1000 mcg/mL injection solution 2022 023 [id number], [address], [place], [place], [id number], 10:24:04 Patient TargetsNo targets recorded. Patient InstructionsNo instructions recorded. Reason for Referral None Reported. Results Created Date Observation Date Name Description Value Unit Range Abnormal Flag Note LastModifiedBy Organization Detail LastModifiedTime 12/26/19 22 12/26/2021 URIC ACID SERUM uric acid 7.4 mg/dL 2.5-6. 2 high Not Available [facility] (Lab) [address] [place], [address], 12/26/2021 19:25:04 01/06/20 22 01/07/2022 URIC ACID, 24 HR URINE uric acid, urine 23.4 mg/dL not estab. Not Available [facility] (Lab) [address] [place], [address], 01/07/2022 10:12:40 01/06/20 22 01/07/2022 URIC ACID, 24 HR URINE uric acid, urine 24HR 538.2 mg/24 _HR 173.7- 902.1 Perfo rmed at: [place] [address] Lab Direc tor: Benjy moody PhD, Phone : [phone] Not Available [facility] (Lab) [address] [place], [address], 01/07/2022 10:12:40 11/02/19 22 11/02/2021 US, thyro id No observ ation record ed. [id number] [facility] [address], [place], [address], 12/27/2022 12:50:34 10/10/20 22 10/09/2022 US, neck, soft tissu e No observ ation record ed. [id number] [facility] [address], [place], [address], 12/27/2022 12:50:34 11/03/19 23 11/03/2022 CT, neck, soft tissu e, w/ contr ast No observ ation record ed. [id number] [facility] [address], [place], [address], 12/27/2022 12:50:34 Result Notes None recorded. Problems Name Problem SNOMED Code Status Onset Date Resolution Date Notes Provider Name and Address Organization Details Recorded Time Hypothyroidism 05068993 Active 2022 JORJE Gutierrez, [employer] [facility] [employer] [facility] 3 18:33:26 Vitamin B12 deficiency (non anemic) 77879925 Active 2022 JORJE Gutierrez, [employer] [facility] 3 18:33:59 Disorder of vitamin B12 505090405 Active 2022 Luciana Pratt MD [address] [facility], [facility] [address], [place], [address], [facility] 3 10:21:45 Cervical lymphadenopath y 458779949 Active 2022 Charlene Hodges null, [facility] 3 11:47:10 Problem Notes None recorded. Procedures Surgical History Date Name Laterality Status Provider Name and Address Organization Details Recorded Time 2 biopsy of uterus completed Not Available [facility] 12/27/2022 12:45:55 Imaging Results Imaging Date Name Status LastModified by Organiz [facility] Details LastModified Time 11/03/2022 CT, neck, soft tissue, w/ contrast completed [id number] [facility] [address], [place], [address], 12/27/2022 12:50:34 11/02/2021 US, thyroid completed [id number] [facility] [address], [place], [address], 12/27/2022 12:50:34 10/09/2022 US, neck, soft tissue completed [id number] [facility] [address], [place], [address], 12/27/2022 12:50:34 Procedure Notes None recorded. Medical Equipment None Reported. Allergies Allergen ID Allergen Name Allergen Category Reaction Reaction Severity Criticality Documentation Date Start Date Code Code System Note Provider Name and Address Organization Details Recorded Time 90908 terbinafi ne medicatio n Not available Not available Not available 12/27/2022 61413 RxNorm urtic aria Not Available [facility] 3 12:50:28 26668 sulfameth oxazole medicatio n Not available Not available Not available 12/27/2022 71744 RxNorm utica ji,f ever Not Available [facility] 3 12:50:28 67816 shellfish derived food,medi cation Not available Not available Not available 12/27/2022 60394 UNK SOB, Swell ing Not Available [facility] 3 12:50:28 52165 prochlorp erazine medicatio n Not available Not available Not available 12/27/2022 8704 RxNorm Not Available [facility] 3 12:50:28 33803 ondansetr on medicatio n Not available Not available Not available 12/27/2022 36008 RxNorm palpi tatio ns Not Available [facility] 3 12:50:28 15509 Non-stero idal anti-infl ammatory agent (product) medicatio n anaphylax is Not available Not available 12/27/2022 60857 005 SNOMED Urtic aria Not Available [facility] 3 12:50:29 78710 nifedipin e medicatio n Not available Not available Not available 12/27/2022 7417 RxNorm urtic aria, dizzi ness Not Available [facility] 3 12:50:29 54861 latex environme nt,medica tion Not available Not available Not available 12/27/2022 18026 91 RxNorm Not Available [facility] 3 12:50:29 10444 ibuprofen medicatio n anaphylax is Not available Not available 12/27/2022 5640 RxNorm Not Available [facility] 3 12:50:29 67903 heparin medicatio n Not available Not available Not available 12/27/2022 5224 RxNorm Not Available [facility] 3 12:50:29 20195 ciproflox acin medicatio n Not available Not available Not available 12/27/2022 2551 RxNorm rash Not Available [facility] 3 12:50:29 55865 aztreonam medicatio n Not available Not available Not available 12/27/2022 1272 RxNorm in dextr osere actio n-keanu h, fever , syste oskar Not Available [facility] 3 12:50:29 15885 aspirin medicatio n anaphylax is Not available Not available 12/27/2022 1191 RxNorm Not Available [facility] 3 12:50:30 27996 adhesive environme nt,medica tion Not available Not available Not available 12/27/2022 25381 UNK sensi tivit y Not Available [facility] 3 12:50:30 Medications Name Sig Start Date Stop Date Status Note LastModified by Organization Details LastModified Time furosemide 40 mg tablet TAKE 1 TABLET BY MOUTH EVERY DAY active Not Available Not Available No t Available prednisone 10 mg tablet 03/30 completed Not Available Not Available Not Available doxycycline hyclate 100 mg capsule TAKE 1 CAPSULE BY MOUTH TWICE DAILY AFTER MEALS FOR 10 DAYS 03/30 completed Not Available Not Available Not Available lamotrigine 200 mg tablet TAKE 1 TABLET BY MOUTH TWICE DAILY active Not Available Not Available No t Available albuterol sulfate 2.5 mg/3 mL (0.083 %) solution for nebulizatio n INHALE 1 VIAL VIA NEBULIZER EVERY 6 HOURS NEEDED active Not Available Not Available No t Available BD Luer-Calvin Syringe 3 mL 25 x 5/8 USE TO ADMINISTE R DIPHENHYD RAMINE FOR ALLERGIC REACTIONS ASSOCIATE D WITH IMMUNE GLOBULIN INFUSIONS FOR IMMUNODEF ICIENCY active Not Available Not Available No t Available azithromyci n 250 mg tablet 03/30 completed Not Available Not Available Not Available fluconazole 150 mg tablet TAKE 1 TABLET BY MOUTH EVERY WEEK 03/30 completed Not Available Not Available Not Available hydrocodone 5 mg-acetamin ophen 325 mg tablet TAKE 1 TABLET BY MOUTH EVERY 6 HOURS NEEDED FOR PAIN active Not Available Not Available No t Available ondansetron HCl 4 mg tablet TAKE 1 TABLET BY MOUTH PRE-OP FOR 1 DOSE active Not Available Not Available No t Available dexamethaso ne 6 mg tablet TAKE 1 TABLET BY MOUTH TWICE DAILY 03/30 completed Not Available Not Available Not Available clobetasol 0.05 % topical cream APPLY TO THE VULVAR AREA AT BEDTIME UNTIL FOLLOW UP APPOINTME NT active Not Available Not Available No t Available metronidazo le 500 mg tablet TAKE 1 TABLET BY MOUTH THREE TIMES DAILY FOR 7 DAYS 03/30 completed Not Available Not Available Not Available omeprazole 40 mg capsule,del ayed release TAKE 1 CAPSULE BY MOUTH TWICE DAILY BEFORE BREAKFAST AND SUPPER active Not Available Not Available No t Available liothyronin e 5 mcg tablet Take 1 tablet(s) twice a day by oral route around the clock for 90 days. 2022 active Not Available Not Available Not Avai lable triamcinolo ne acetonide 0.1 % topical cream APPLY TOPICALLY TO THE AFFECTED AREA TWICE DAILY active Not Available Not Available No t Available theophyllin e ER 300 mg tablet,exte nded release,12 hr TAKE 1 TABLET BY MOUTH TWICE DAILY active Not Available Not Available No t Available levothyroxi ne 25 mcg tablet TAKE 1 TABLET BY MOUTH DAILY ON TUESDAYS, THURSDAYS , SATURDAYS AND SUNDAYS, AND 2 TABLETS DAILY ON MONDAYS, SUNDAY S AND Fridays active Not Available Not Available Not Avai lable nystatin-tr iamcinolone 100,000 unit/gram-0 .1 % topical ointment APPLY EXTERNALL Y TO VULVA AND BUTTICK AREA TWICE DAILY FOR 2 WEESLKS active Not Available Not Available No t Available diphenhydra mine 50 mg/mL injection solution 03/30 completed Not Available Not Available Not Available linezolid 600 mg tablet TAKE 1 TABLET BY MOUTH EVERY 12 HOURS FOR 14 DAYS 03/30 completed Not Available Not Available Not Available amlodipine 10 mg tablet TAKE 1 TABLET BY MOUTH EVERY DAY active Not Available Not Available No t Available cephalexin 500 mg capsule TAKE ONE CAPSULE BY MOUTH TWICE DAILY FOR 1 DAY 03/30 completed Not Available Not Available Not Available cyanocobala min (vit B-12) 1,000 mcg/mL injection solution INJECT 1 ML SUBCUTANE OUSLY ONCE WEEKLY IN THE MORNING 2022 active Not Available Not Available Not Avai lable nystatin 100,000 unit/gram topical cream APPLY TOPICALLY TO THE AFFECTED AREA 2 TO 4 TIMES PER DAY active Not Available Not Available No t Available olopatadine 0.1 % eye drops INSTILL 1 DROP IN BOTH EYES TWICE DAILY active Not Available Not Available No t Available misoprostol 200 mcg tablet TAKE 5 TABLETS BY MOUTH EVERY NIGHT AT BEDTIME FOR 5 NIGHTS active Not Available Not Available No t Available prednisone 50 mg tablet 03/30 completed Not Available Not Available Not Available BD Safety-Calvin Tuberculin 1 mL 25 gauge x 5/8 syringe USE FOR B12 INJECTION ONCE A WEEK active Not Available Not Available No t Available folic acid 1 mg tablet TAKE 1 TABLET BY MOUTH EVERY DAY IN THE MORNING active Not Available Not Available No t Available insulin syringe U-100 with needle 1 mL 31 gauge x 5/16 INJECT BEFORE-12 SUBCUTANE OUSLY ONCE WEEKLY active Not Available Not Available No t Available ergocalcife rol (vitamin D2) 1,250 mcg (50,000 unit) capsule TAKE ONE CAPSULE BY MOUTH EVERY 7 DAYS ON SUNDAY EVENING active Not Available Not Available No t Available epinephrine 0.3 mg/0.3 mL injection, auto-inject or ADMINISTE R 0.3 ML IN THE MUSCLE 1 TIME NEEDED FOR ANAPHYLAX IS active Not Available Not Available No t Available cefprozil 250 mg tablet TAKE 2 TABLETS BY MOUTH TWICE DAILY FOR 7 DAYS 03/30 completed Not Available Not Available Not Available albuterol sulfate HFA 90 mcg/actuati on aerosol inhaler INHALE 2 PUFFS BY MOUTH EVERY 6 HOURS NEEDED FOR WHEEZING active Not Available Not Available No t Available morphine 15 mg immediate release tablet TAKE 1 TABLET BY MOUTH EVERY 6 HOURS NEEDED FOR PAIN OR SEVERE PAIN 03/30 completed Not Available Not Available Not Available cefdinir 300 mg capsule TAKE 1 CAPSULE BY MOUTH EVERY 12 HOURS active Not Available Not Available No t Available fluticasone propionate 50 mcg/actuati on nasal spray,suspe nsion SHAKE LIQUID AND USE 2 SPRAYS IN EACH NOSTRIL EVERY DAY active Not Available Not Available No t Available doxycycline hyclate 100 mg tablet TAKE 1 TABLET BY MOUTH TWICE DAILY FOR 10 DAYS active Not Available Not Available No t Available ramipril 5 mg capsule TAKE 1 CAPSULE BY MOUTH TWICE DAILY active Not Available Not Available No t Available progesteron e micronized 100 mg capsule TAKE 1 CAPSULE BY MOUTH AT BEDTIME active Not Available Not Available No t Available amoxicillin 875 mg-potassiu m clavulanate 125 mg tablet TAKE 1 TABLET BY MOUTH EVERY 12 HOURS AFTER MEALS FOR 10 DAYS 03/30 completed Not Available Not Available Not Available amoxicillin 500 mg-potassiu m clavulanate 125 mg tablet TAKE 1 TABLET BY MOUTH TWICE DAILY WITH THE MORNING AND EVENING MEAL 03/30 completed Not Available Not Available Not Available Mucinex 600 mg tablet, extended release active Not Available Not Available Not Available ciprofloxac in 0.3 %-dexametha sone 0.1 % ear drops,suspe nsion SHAKE WELL AND INSTILL 4 DROPS INTO BOTH EARS TWICE DAILY FOR 7 DAYS 03/30 completed Not Available Not Available Not Available Spiriva with HandiHaler 18 mcg and inhalation capsules INHALE THE CONTENTS OF 1 CAPSULE VIA INHALATIO N DEVICE EVERY DAY IN THE MORNING active Not Available Not Available No t Available nitrofurant oin monohydrate /macrocryst als 100 mg capsule 03/30 completed Not Available Not Available Not Available duloxetine 30 mg capsule,del ayed release Take 1 capsule every day by oral route in the morning for 90 days. 03/30 completed Not Available Not Available Not Available Flovent HFA 220 mcg/actuati on aerosol inhaler active Not Available Not Available Not Available UltiCare 1 mL 25 gauge x 5/8 syringe USE FOR B12 INJECTION ONCE PER WEEK active Not Available Not Available No t Available Dulera 200 mcg-5 mcg/actuati on HFA aerosol inhaler active Not Available Not Available Not Available Allergy Relief (fexofenadi ne) 180 mg tablet TAKE 1 TABLET BY MOUTH EVERY DAY active Not Available Not Available No t Available Xarelto 20 mg tablet TAKE 1 TABLET BY MOUTH DAILY WITH DINNER active Not Available Not Available No t Available Banophen 50 mg capsule 03/30 completed Not Available Not Available Not Available Spiriva Respimat 2.5 mcg/actuati on solution for inhalation active Not Available Not Available N ot Available clindamycin 1 %-benzoyl peroxide 5 % topical gel with pump APPLY TOPICALLY TO THE AFFECTED AREA TWICE DAILY DIRECTED 03/30 completed Not Available Not Available Not Available Evusheld (EUA) 150 mg/1.5 mL-150 mg/1.5 mL intramuscul ar solution Inject by intramusc ular route. 03/30 completed Not Available Not Available Not Available Vitals Date Recorded Body mass index (BMI) Body height Body height Body height Oxygen saturation Oxygen saturation in Arterial blood by Pulse oximetry Oxygen saturation Oxygen saturation in Arterial blood by Pulse oximetry Heart rate Heart rate Body temperature Body temperature Body weight Systolic blood pressure Diastolic blood pressure Systolic blood pressure Diastolic blood pressure Provider Name and Address Organization Details Last Updated DateTime 3 41.4 kg/m2 170.18 cm 170.18 cm 170.18 cm 96 % 96 % 96 % 96 % 80 /min 94 /min 97.8 [degF] 98 [degF] 459359. 54 g 118 mm[Hg] 80 mm[Hg] 110 mm[Hg] 75 mm[Hg] Not Available [facility] 3 12:46:32 Date Recorded Body height Body mass index (BMI) Body weight Body temperature Heart rate Systolic blood pressure Diastolic blood pressure Provider Name and Address Organization Details Last Updated DateTime 3 170.18 cm 39.6 kg/m2 587957. 87 g 98.3 [degF] 93 /min 127 mm[Hg] 86 mm[Hg] JORJE Gutierrez [facility] 3 09:50:54 Social History Question Answer Notes LastModified by Organizat ion Details LastModified Time Tobacco Smoking Status Never Smoker [email or web address] bernstein [facility] 03/30/2023 09:46:13 What Is Your Level Of Alcohol Consumption? Occasional [id number] Information not available 12/27/2022 What Is Your Level Of Caffeine Consumption? Occasional [id number] Information not available 12/27/2022 In The 14 Days Before Symptom Onset, Have You Had Close Contact With A Laboratory-confirm ed COVID-19 While That Case Was Ill? No [email or web address] Information n ot available 03/30/2023 In The 14 Days Before Symptom Onset, Have You Had Close Contact With A Person Who Is Under Investigation For COVID-19 While That Person Was Ill? No [email or web address] Information not available 03/30/2023 What Type Of Diet Are You Following? REGULAR [id number] Information not available 12/27/2022 What Is Your Relationship Status? [id number] Information not available 12/27/2022 Have You Recently Traveled Abroad? No [email or web address] Information not available 03/30/2023 Do You Have Any Dietary Restrictions? No [email or web address] Information not available 03/30/2023 Sex: Female Functional Status None recorded. Mental Status None recorded. Family History Relationship Description Onset Age of this Age Resolved Age Notes LastModified by Organization Details LastModified Time Mother Heart disease [id number] Not available 12/27/2022 12:45:55 Mother Rheumatoid arthritis [email or web address] Not available 03/30 09:46:11 Mother History of thyroid disorder Not available 03/30 09:46:11 Mother Dementia [email or web address] Not availab le 03/30/2023 09:46:11 Brother Gout [email or web address] Not availabl e 03/30/2023 09:46:11 Brother Rheumatoid arthritis [email or web address] Not available 03/30 09:46:11 Brother Diabetes mellitus [id number] Not available 12/27/2022 12:45:56 Brother Hypertensive disorder [id number] Not available 12/27/2022 12:45:56 Father Diabetes mellitus [id number] Not available 12/27/2022 12:45:56 Father Hypertensive disorder [id number] Not available 12/27/2022 12:45:56 Medical History Condition Response THYROID DISEASE Y ARTHRITIS Y HEADACHES/MIGRAINES Y GI PROBLEMS Y USE OF BLOOD THINNERS Y BLOOD CLOTS Y HYPOTHYROIDISM Y HAVE YOU BEEN HOSPITALIZED OR SEEN IN [facility] ER IN THE PAST YEAR ? Y HYPERTENSION Y HIGH CHOLESTEROL / HYPERLIPIDEMIA Y Gynecological HistoryNo gynecological history recorded. Obstetrics History GPAL:G 0 P 0 0 0 0 Past Encounters Encounter ID Performer Location Encounter Start Date Encounter Closed Date Diagnosis/Indication Diagnosis SNOMED-CT Code Diagnosis ICD10 Code Diagnosis Note [id number] [facility] [address] [place], [place] [address] 10/24/2021 00:00:00 10/24/2021 14:53:51 [id number] [facility] [address] [place], [place] [address] 12/26/2021 00:00:00 12/26/2021 11:28:35 [id number] [facility] [address] [place] [address] 03/28/2022 00:00:00 03/28/2022 13:04:30 [id number] [facility] [address] [place], [place] [address] 09/12/2022 00:00:00 09/12/2022 13:20:17 [id number] Luciana Pratt MD [facility] [address] [place] [address] 03/30/2023 09:42:45 03/30/2023 10:29:15 Hypothyroidism 61620780 E03.9 TSH and FT4 in ideal range- continue unithroid at 50 mcg on Sun/Sun/ and 25 mcg on / /Sun/ Sunday. She was reminded to take her unithroid on empty stomach with glass of water and wait one hour to eat or have her coffee in morning and up to 4 hours if ever taking any heartburn or reflux medication s to help optimize absorption . Discussed paleo like diet with restrictio n of GMOs to help with energy and to optimize absorption of vitamins and minerals and reduce inflammati on. Vitamin B1 2 deficiency (non anemic) 94766171 E53.8 Continue on vitamin B12 injections weekly along with folic acid 1 mg once daily. Spent up to 25 minutes preparing to see the patient (eg, review of tests), obtaining and/or reviewing separately obtained history, performing a medically appropriat e examinatio n and evaluation , counseling and educating the patient, ordering medication s, tests, along with documentin g clinical informatio n in the electronic health record, jocelyneen tly interpreti ng results and communicat ing results to the patient. RTC in 4-6 months. Patient was provided a handwritte n lab order which contains our fax number. If she chooses to go outside of the [facility] system to obtain labwork she was advised to provide our fax number and my informatio n to the lab she will be obtaining labwork from in order to have her labs properly forwarded over for me to review so there is no loss of follow up due to use of outside network. She was also advised to contact our clinic informing us that she has completed her labwork so we are aware we will need to reach out to the appropriat e laboratory to request her results be forwarded to us so I might have the ability to review and make further medical decision making in her case. She voiced understand ing. Health Concerns Section Related Observation LastModified by Organization Detai ls LastModified Time None Recorded Concern Status LastModified by Organization Details LastModified Time None Recorded Advance Directives Directive None Recorded Payers Encounter Date Sequence Insurance Name Policy Number Policy Clements Covered Member ID Clements Member ID Guarantor Name 03/30/2023 1 [place] Tracey Lambert [id number] Tracey Lambert 03/30/2023 2 [employer] - FOR LIFE (MEDICARE SUPPLEMENT) Hector Lambert [id number] Tracey Lambert Notes Date Note Type Note Provider Name and Address Organization Details Recorded Time 03/30/2023 text/html 52 yo female com es in for follow up in management of hypothyroidism and vit B12 def. last seen/telemedicine visit in Aug at that time we had patient alternate her unithroid at 50 mcg on Sun/Sun/Sunday and 25 mcg on / /Sun/Sunday. we continued B12 once weekly. She is also now taking folic acid 1 mg once daily. She has kept off 11 pounds since last summer. She hasn't made it to the gym lately. She had to have her powerport removed in December- it was recalled. New port placed without being properly mounted and she developed an infection in February /early-she went on doxycycline-she ended up with site infection - she went down for emergency removal of her port. She had this done 4 weeks ago. She goes for repeat port placement on April 11 on left subclavian. labs from 03/20/23:TSH of 1.510 uIU/mlFT4 of 1.23 ng/dLFT3 of 3.0 pg/mLB12/folate normal Luciana Pratt MD [address] [facility] [address], [place], [address], [facility] 03/30/2023 13:59:28 OBGyn Episode No OBEpisode recorded.
--- OUTSIDE RECORDS SUMMARY | 2024-12-14 13:22 | XMS_ITS | Encounter Summary ---
Author Organization [facility] Address [facility] [place] [address] Care Team Providers Care Paint Line Operator Name Role Phone Theodore Zamora DO Primary Care Provider + Nena Holland RN Unavailable [phone] Bonifacio Easton MD Unavailable Encounter Details Date Type Department Care Team (Late st Contact Info) Description 08/01/2023 MyChart Message Enc [facility] Family & Internal Medicine [facility] [address] [place] [address] Theodore Zamora DO [address] [place] [address] About port revision Social History Tobacco Use Types Packs/Day Years [...] Recorded Patient Health Questionnaire-2 Score 0 11/23/2022 Hunger Vital Sign Answer Date Recorded Within [...] place to sleep or slept in a m[facility] (including now)? No 07/30/2023 Comments No Sex and Gender Information Value Date Recorded Sex Assigned at Female 11/26/2024 1:20 PM AIR CONDITIONING MECHANIC Legal Sex Female 5:37 PM CDT Gender Identity Female 11/26/2024 1:20 PM AIR CONDITIONING MECHANIC Sexual Orientation Not on file Occupation Industry Job Start Date Job End Date unemployed Not on file Not on file Not on file documented as of this encounter Plan of Treatment Upcoming Encounters Date Type Department Care Team (Late st Contact Info) Description 12/16/2024 11:30 AM AIR CONDITIONING MECHANIC Appointment [facility] [address] [place] [address] None, MD Joycelyn 12/16/2024 1:00 PM AIR CONDITIONING MECHANIC Appointment [facility] [address] [place] [address] Patel Garay MD [address] [address] 02/24/2025 1:00 PM CDT Office Visit [facility] Family & Internal Medicine - [address] [address] Theodore Zamora, [address] [place] [address] documented as of this encounter Goals Goal Patient Goal Type Associated Problems Recent Progress Patient-Stated? Author Consistently take medications as Prescribed General On track(2024 3:27 PM AIR CONDITIONING MECHANIC) No Nena Holland RN Establish Plan for Symptom Monitoring- COPD/Asthma General On track(2024 3:27 PM AIR CONDITIONING MECHANIC) Nena Mohan RN Note: COPD/Asthma: Patient will recognize symptoms of COPD/Asthma exacerbation and report to the physician. If severe, patient will seek emergent treatment at [facility] or [facility]. 01/24/23: Patient seen by (Clearance Rep) on 01/10/23 and will f/u on 03/28/23. Reduce Blood Pressure Lifestyle On track(2024 3:27 PM AIR CONDITIONING MECHANIC) Nena Mohan RN Note: Patient to monitor blood pressure weekly and report the onset of any changes. Patient will take medications as directed. documented as of this encounter Visit Diagnoses Not on filedocumented in this encounter Additional Health Concerns Assessment Noted Time PHQ-9 Depression Total Score: 0 04/21/20 22 8:42 AM CDT documented as of this encounter Care Teams Paint Line Operator Relationship Specialty Start Date End Date Theodore Zamora DO [address] [place] [address] PCP - General FAMILY PRACTICE 03/15/22 [place] [address] [place] [address] [id number] Temperature Logging Operator (Ambulatory) REGISTERED NURSE 03/17/22 Bonifacio Easton MD [address] [place] [id number] PULMONARY DISEASE 08/29/22 documented as of this encounter
--- OUTSIDE RECORDS SUMMARY | 2024-12-14 13:22 | XMS_ITS | Encounter Summary ---
Author Organization [facility] Address [facility] [place] [address] Care Team Providers Care Mortgage Originator Name Role Phone Billgeovanny Theodore Ann Marie MARTINI Primary Care Provider + Nena Holland RN Unavailable [phone] Bonifacio Easton MD Unavailable Encounter Details Date Type Department Care Team (Late Contact Info) Description 04/25/2023 MyChart Message Enc [facility] [address] [place], [place] [id number] [employer], [facility] [place] Provider Air Quality Message Social History Tobacco Use Types Packs/Day Years Used Date Smoking Tobacco: Never Passive Smoke Exposure: Past Smokeless Tobacco: Never Alcohol Use Standard Drinks/Week Comments Yes 0 (1 standard drink = 0.6 oz pur e alcohol) occ PHQ-2 Answer Date Recorded Patient Health Questionnaire-2 Score 0 11/23/2022 Comments No Sex and Gender Information Value Date Recorded Sex Assigned at Female 11/26/2024 1:20 PM VALIDATION ANALYST Legal Sex Female 5:37 PM CDT Gender Identity Female 11/26/2024 1:20 PM VALIDATION ANALYST Sexual Orientation Not on file Occupation Industry Job Start Date Job End Date unemployed Not on file Not on file Not on file documented as of this encounter Plan of Treatment Upcoming Encounters Date Type Department Care Team (Late Contact Info) Description 12/16/2024 11:30 AM VALIDATION ANALYST Appointment [facility] [address] [place] [address] None, Provider, 12/16/2024 1:00 PM VALIDATION ANALYST Appointment [facility] [address] [place] [address] Patel Garay MD [address] [address] 02/24/2025 1:00 PM CDT Office Visit [facility] Family & Internal Medicine [address] [phone] Theodore Zamora DO [address] [place] [id number] documented as of this encounter Goals Goal Patient Goal Type Associated Problems Recent Progress Patient-Stated? Author Consistently take medications as Prescribed General On track(2024 3:27 PM VALIDATION ANALYST) No Nena Holland RN Establish Plan for Symptom Monitoring- COPD/Asthma General On track(2024 3:27 PM VALIDATION ANALYST) No Nena Holland, RN Note: COPD/Asthma: Patient will recognize symptoms of COPD/Asthma exacerbation and report to the physician. If severe, patient will seek emergent treatment at [facility] or [facility]. 01/24/23: Patient seen by (Plaster Helper) on 01/10/23 and will f/u on 03/28/23. Reduce Blood Pressure Lifestyle On track(2024 3:27 PM VALIDATION ANALYST) Nena Mohan, DUSTIN Note: Patient to monitor blood pressure weekly and report the onset of any changes. Patient will take medications as directed. documented as of this encounter Visit Diagnoses Not on filedocumented in this encounter Additional Health Concerns Assessment Noted Time PHQ-9 Depression Total Score: 0 04/21/20 22 8:42 AM CDT documented as of this encounter Care Teams Mortgage Originator Relationship Specialty Start Date End Date Theodore Zamora DO [address] [place] [id number] PCP - General FAMILY PRACTICE 03/15/22 Nena Holland RN [address] [place] [address] Automation And Controls Manager (Ambulatory) REGISTERED NURSE 03/17/22 Bonifacio Easton MD [address] [place] [id number] PULMONARY DISEASE 08/29/22 documented as of this encounter
--- OUTSIDE RECORDS SUMMARY | 2024-12-14 13:22 | XMS_ITS | Clinical Summary ---
Author Organization [facility] Address [facility] [place] [address] Care Team Providers Care Hat Lining Paster Name Role Phone BillTheodore small Ann Marie MARTINI Primary Care Provider + Nena Holland RN Unavailable [phone] Bonifacio Easton MD Unavailable Allergies Active Allergy Reactions Criticality Noted Date Comments Aspirin Anaphylaxis High 03/27/2019 Other reaction(s): anaphylaxis Aztreonam Rash High 03/27/2019 Other reaction(s): RASH Chlorhexidine Rash Low 08/29/2022 Ciprofloxacin Rash Low 03/27/2019 Other reaction(s): Unknown Heparin Other (see comment) Low 06/14/2020 Red areas where heparin was given subQ Ibuprofen Anaphylaxis High 03/27/2019 Iohexol Shortness of Breath High 08/22/2012 Latex Shortness of Breath High 03/27/2019 Other reaction(s): Dyspnea Misc. Sulfonamide Containing Compounds Unknown 05/29/2023 Nifedipine Hives,Dizziness 03/27/2019 Other reaction(s): Urticaria Nsaids Anaphylaxis,Hives High 03/27/2019 Ondansetron Palpitations Low 05/10/2021 When taken in high frequent doses Prochlorperazine Unknown 03/03/2021 Shellfish Allergy Swelling,Unknown High 12/06/2022 Shellfish-Derived Products Angioedema,Other (see comment),Shortness of Breath,Swelling High 03/27/2019 Reaction: LIP SWELLING, Sulfa Antibiotics Unknown 03/16/2022 Sulfamethizole Hives 02/21/2022 Sulfamethoxazole Hives High 12/06/2022 Tape Rash Low 03/27/2019 Other reaction(s): rash Terbinafine Hives 03/27/2019 Other reaction(s): Urticaria Trimethoprim Unknown 02/21/2022 Vancomycin Rash Low 03/27/2019 Medications docusate sodium 50 MG capsule Take 1 capsule (50 mg total) by mouth daily as needed. Active fluticasone propionate 50 MCG/ACT nasal spray 2 sprays by Nasal route 2 (two) times a day. Active immune globulin, Human, 10 GM/100ML Solution solution Inject 700 mLs (70 g total) into the vein every 28 days. Last dose 09/27/22 Active lamoTRIgine 200 MG tablet Take 1 tablet (200 mg total) by mouth 2 (two) times daily. Active ipratropium 0.02 % nebulizer solution Use daily as needed for sob Active diphenhydrAMINE 50 MG/ML injection Monthly Active Acetaminophen 500 MG Cap Take 500 mg by mouth. Every 8 to 10 hours prn Active EPINEPHrine 0.3 MG/0.3ML injection epinephrine 0.3 mg/0.3 mL injection, auto-injector INJECT 0.3 ML IN THE MUSCLE ONCE NEEDED FOR ANAPHYLAXIS Active nystatin cream as needed. Acti ve BD SYRINGE SLIP TIP 25G X 5/8 1 ML Misc 022 Active triamcinolone 0.1 % creamIndication s:Eczema, unspecified type Apply topically 2 (two) times daily. 80 g Active Additional Information Patient not taking.Reported on 12/05/2024 cetirizine (ZYRTEC) 10 MG tablet Take 1 tablet (10 mg total) by mouth daily as needed for Allergies. Active diphenhydrAMINE (BENADRYL) 25 MG capsule Take 1 capsule (25 mg total) by mouth every 6 (six) hours as needed for Itching. Active albuterol (PROVENTIL) (2.5 MG/3ML) 0.083% nebulizer solutionIndicat ions:Chronic obstructive pulmonary disease, unspecified COPD type (CMS/HCC [facility]/HCC) Take 3 mLs (2.5 mg total) by nebulization every 6 (six) hours as needed. 360 mL 2 023 Active Skin Oils (LUBRIDERM EX) Apply topically daily. Active albuterol sulfate HFA 108 (90 Base) MCG/ACT inhalerIndicati ons:Chronic obstructive pulmonary disease, unspecified COPD type ([facility]) INHALE 2 PUFFS BY MOUTH EVERY 6 HOURS NEEDED FOR WHEEZING 18 g 3 023 Active clobetasol (TEMOVATE) 0.05 % cream Apply to vulva area at bedtime Active ondansetron (ZOFRAN) 4 MG tabletIndicatio ns:Nausea Take 1 tablet (4 mg total) by mouth every 8 (eight) hours as needed. 20 tablet 023 Active olopatadine (PATANOL) 0.1 % ophthalmic solutionIndicat ions:Seasonal allergies Place 1 drop into both eyes 2 (two) times daily. In morning 5 mL 2 023 Active Additional Information Patient not taking.Reported on 12/05/2024 SPIRIVA RESPIMAT 2.5 MCG/ACT inhaler (SPIRIVA RESPIMAT) Inhale 2 puffs into the lungs daily. 024 Active benzonatate (TESSALON) 100 MG capsuleIndicati ons:Acute cough Take 1 capsule (100 mg total) by mouth 3 (three) times daily as needed for Cough. 30 capsule 024 Active FLOVENT HFA 220 MCG/ACT inhalerIndicati ons:Chronic obstructive pulmonary disease, unspecified COPD type ([facility]) USE 1 INHALATION TWICE A DAY 36 g 024 Active mupirocin (BACTROBAN) 2 % ointment 024 Active naloxone (NARCAN) 4 MG/0.1ML nasal sprayIndication s:Opioid use 1 spray by Nasal route as needed for Opioid reversal. may repeat every 2 to 3 minutes in alternating nostrils until medical assistance becomes available 1 each 024 2024 Active tacrolimus (PROTOPIC) 0.1 % ointment Apply topically 2 (two) times daily. Active rivaroxaban (XARELTO) 20 MG Tab tabletIndicatio ns:History of pulmonary embolism Take 1 tablet (20 mg total) by mouth daily with supper. 90 tablet 1 024 Active SYRINGE-NEEDLE, DISP, 3 ML (BD ECLIPSE SYRINGE/NEEDLE) 22G X 1 3 ML MiscIndications :Vitamin B12 deficiency (non anemic) 1 Device by Does not apply route once a week. 12 each 024 Active cyanocobalamin (B-12) 1000 MCG/ML injectionIndica tions:Vitamin B12 deficiency (non anemic) Inject 1 mL (1,000 mcg total) into the muscle once a week. 13 mL 024 Active furosemide (LASIX) 40 MG tabletIndicatio ns:Essential hypertension take 1 tablet by mouth every day 90 tablet 1 024 Active UNITHROID 25 MCG tabletIndicatio ns:Louise's disease,Thyroid nodule TAKE 2 TABLETS BY MOUTH SUNDAY, SUNDAY, AND SUNDAY, AND 1 TABLET ON SUNDAY, SUNDAY, SUNDAY AND SUNDAY 120 tablet 024 Active liothyronine (CYTOMEL) 5 MCG TabIndications: Louise's disease,Thyroid nodule TAKE 1 TABLET(5 MCG) BY MOUTH TWICE DAILY 180 tablet 1 024 Active vitamin D2, ergocalciferol, (DRISDOL) 1.25 mg capsuleIndicati ons:Vitamin D deficiency TAKE 1 CAPSULE BY MOUTH EVERY 7 DAYS ON SUNDAY EVENING 5 capsule 2 024 Active amLODIPine (NORVASC) 10 MG tabletIndicatio ns:Essential hypertension TAKE 1 TABLET(10 MG) BY MOUTH DAILY 90 tablet 1 024 Active mometasone-form oterol (DULERA) 200-5 MCG/ACT AerosolIndicati ons:Chronic obstructive pulmonary disease, unspecified COPD type (CMS/HCC [facility]/HCC) Inhale 2 puffs into the lungs 2 (two) times daily. 52 g 1 024 Active fexofenadine (LENA) 180 MG tabletIndicatio ns:Seasonal allergies TAKE 1 TABLET(180 MG) BY MOUTH DAILY 90 tablet 3 025 Active theophylline ER (THEODUR) 300 MG 12 hr tabletIndicatio ns:Chronic obstructive pulmonary disease, unspecified COPD type (CMS/HCC [facility]/HCC) TAKE 1 TABLET(300 MG) BY MOUTH TWICE DAILY 180 tablet 025 Active omeprazole (PRILOSEC) 40 MG capsuleIndicati ons:Gastroesoph ageal reflux disease, unspecified whether esophagitis present TAKE 1 CAPSULE BY MOUTH TWICE DAILY BEFORE BREAKFAST AND SUPPER 180 capsule 025 Active famotidine (PEPCID) 40 MG tablet Take 1 tablet (40 mg total) by mouth 2 (two) times daily. Active Insulin Syringe-Needle U-100 (INSULIN SYRINGE 1CC/31GX5/16 ) 31G X 5/16 1 ML MiscIndications :Vitamin B12 deficiency (non anemic) INJECT B12 SUBCUTANEOUSLY ONCE WEEKLY FOR 90 DAYS 10 each 2 025 Active HYDROcodone-sreekanth taminophen (NORCO) 5-325 MG tabletIndicatio ns:Chronic Pain Take 1 tablet by mouth every 6 (six) hours as needed for Pain. Indications: Chronic Pain 60 tablet 025 Active folic acid (FOLVITE) 1 MG tabletIndicatio ns:Vitamin B12 deficiency (non anemic) TAKE 1 TABLET(1 MG) BY MOUTH EVERY MORNING 90 tablet 025 Active rifAXIMin (XIFAXAN) 550 MG TabIndications: Small intestinal bacterial overgrowth (SIBO) Take 1 tablet (550 mg total) by mouth 3 (three) times daily for 14 days. 42 tablet 025 2024 Active ramipril (ALTACE) 5 MG capsuleIndicati ons:Essential hypertension TAKE 1 CAPSULE BY MOUTH TWICE DAILY 180 capsule 1 025 Active doxycycline monohydrate 100 MG capsuleIndicati ons:Diarrhea, unspecified type,Abdominal bloating,Small intestinal bacterial overgrowth (SIBO) Take 1 capsule (100 mg total) by mouth 2 (two) times daily for 14 days. 28 capsule 025 2024 Active Insulin Syringe-Needle U-100 (INSULIN SYRINGE 1CC/31GX5/16 ) 31G X 516 1 ML Misc INJECT B12 SUBCUTANEOUSLY ONCE WEEKLY FOR 90 DAYS 022 2024 Discontinued(R eorder) omeprazole (PRILOSEC) 40 MG capsuleIndicati ons:Gastroesoph ageal reflux disease, unspecified whether esophagitis present TAKE 1 CAPSULE BY MOUTH TWICE DAILY BEFORE BREAKFAST AND SUPPER 180 capsule 024 2024 Discontinued cholestyramine (QUESTRAN) 4 G packetIndicatio ns:Diarrhea, unspecified type MIX AND DRINK 1 PACKET(4 GRAMS) BY MOUTH DAILY NEEDED FOR DIARRHEA 90 each 024 2024 Discontinued(F ormulary change) folic acid (FOLVITE) 1 MG tabletIndicatio ns:Vitamin B12 deficiency (non anemic) TAKE 1 TABLET(1 MG) BY MOUTH EVERY MORNING 90 tablet 024 2024 Discontinued ramipril (ALTACE) 5 MG capsuleIndicati ons:Essential hypertension TAKE 1 CAPSULE BY MOUTH TWICE DAILY 180 capsule 024 2024 Discontinued potassium chloride CR (K-TAB) 10 MEQ Tab CR tabletIndicatio ns:Hypokalemia Take 1 tablet (10 mEq total) by mouth daily. 90 tablet 024 2024 Discontinued(D ose adjustment) HYDROcodone-sreekanth taminophen (NORCO) 5-325 MG tabletIndicatio ns:Chronic Pain Take 1 tablet by mouth every 6 (six) hours as needed for Pain. Indications: Chronic Pain Please have patient call the office to schedule a follow up appointment to prevent disruption in medications. 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 Lichen sclerosus 05/21/2024 Chronic pain syndrome 05/21/2024 Bimalleolar fracture of left ankle 09/04/2023 Infected venous access port 03/14/2023 Bacteremia associated with IV line 03/14/2023 Vitamin B12 deficiency (non anemic) 03/13/2023 Hypothyroidism 03/13/2023 ILD (interstitial lung disease) ([facility] ) 01/10/2023 Pulmonary nodule 1 cm or greater in diameter Care Management 03/20/2022 Incisional hernia, without obstruction or gangre ne 03/16/2022 Hyperuricemia 11/09/2021 Thrombocytosis 02/23/2021 Hand dermatitis 11/15/2020 Overview (03/16/2022): Last Assessment & Plan: Favor irritant dermatitis due to hand washing - Start triamcinolone 0.1% cream BID to affected areas on hands, SE of topical steroids including skin atrophy discussed - Recommended emolliation after hand washing Multiple nevi 11/15/2020 Overview (03/16/2022): Last Assessment & Plan: - Reassured patient if benign appearance today - Continue in office and self skin examinations - ABCDE of melanoma discussed - Continue sun protection with sunscreen, sun protective clothing and sun avoidance Functional dyspepsia 08/16/2020 Slow transit constipation 08/16/2020 Colonic stricture ([facility]) 02/24/2020 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 08/13/2019 Non-seasonal allergic rhinitis 07/16/2019 Dysphagia 03/28/2019 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 Thyroid nodule 03/28/2019 Vitamin D deficiency 02/05/2019 Food allergy 05/03/2018 Overview (03/16/2022): Shellfish, soy CVID (common variable immunodeficiency) ([facility]) 02/20/2018 Poorly controlled severe per sistent asthma without complication ([facility]) 02/20/2018 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 06/28/2016 Anxiety 06/17/2014 Overview (03/16/2022): Overview: Anxiety Anxiety 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 Overview (03/16/2022): Deficiency, immunity, common variable History of pulmonary embolism 04/22/2014 Overview (03/16/2022): Healed or old pulmonary embolism Chronic obstructive pulmonary disease ([facility]) 03/15/2012 Raynaud's syndrome 07/11/2007 Hypogammaglobulinemia ([facility]) 07/25/20 05 Polycystic ovaries 05/04/2004 Essential hypertension Hyperlipidemia Resolved Problems Problem Noted Date Diagnosed Date Resolved Date Port-A-Cath in place 09/04/2023 023 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 03/19/2022 Overview (03/16/2022): Last Assessment & Plan: - Reassured of benign appearance today Pulmonary embolism ([facility]) 06/05/2014 03/16/2022 Overview (03/16/2022): Overview: ICD-10 Update History of blood clots 04/21 Encounters Date Type Department Care Team Description 12/11/2024 Orders Only [facility] - [address] [place] [address] Jonnathan Aragon PA-C 12/11/2024 [facility] - [address] [place] [address] Patel Garay MD Medication Problem 12/09/2024 Patient Outreach [facility] Family & Internal Medicine [address] [phone] Nena Holland RN Care Management 12/09/2024 [facility] - [address] [place] [address] Patel Garay MD Referral 12/05/2024 1:00 PM PLASTIC SHEETING CUTTER Office Visit [facility] [address] [phone] Theodore Zamora DO Kim, Peter S, MD New Patient (New patient) 12/05/2024 Travel 11/26/2024 1:00 PM PLASTIC SHEETING CUTTER Office Visit [facility] Internal [address] [phone] Theodore Zamora, Hypertension (Routine follow up. No concerns ) 11/26/[address] [phone] Theodore Zamora, Question 11/26/2024 Travel 11/13/[address] [phone] Theodore Zamora, Refill Request; Follow Up Call 11/13/2024 Patient Outreach [address] [phone] Nena Holland, RN Care Management 11/11/[address] [phone] Theodore Zamora, Record Request 11/10/2024 [employer] INFO SRVCS Scanned, [facility] Mammogram (SCAN) 10/23/2024 MyChart Message Enc [address] [phone] Theodore Zamora, Rheumatology panel 10/07/[address] [phone] Theodore Zamora, DO Refill Request; Concerns 10/07/2024 Patient Outreach [facility] Internal [address] [phone] Nena Holland, RN Care Management 10/01/2024 Scan HEALTH INFO SRVCS Scanned, [facility] Endoscopy (SCAN) 09/19/[address] [phone] Theodore Zamora, DO Results 09/18/2024 Patient Outreach [address] [phone] Nena Holland, RN Care Management from Last 3 Months Immunizations Name Administration Dates Next Due FLUCELVAX (ccIIV3, TRIVALENT, 0.5mL) 08/04/2024 H1N1 Injectable 2008 Influenza 11/01/2009 Hepatitis A/Hepatitis B(Twinrix) 03/07/2004,1212/2002,08/19/2003 Influenza (FluMist) 07/19/2010 Influenza (Generic) 07/25/2021, 9,07/13/2018,2017,06/28/2016,08/06/2015,07/28/2014,0 07/15/2013,07/19/2012,07/19/2010, 010,08/19/2003,10/03/2002 Influenza Adult (Generic) 08/12/2023,11/2021,06/30/2020,2018,07/16/2018,08/06/2017,07/11/2009 MMR (MMRII) 03/21/1990 MODERNA COVID-19 (12+) MRNA, LNP-S, PF, 100 MCG/ 0.5 ML DOSE 01/09/2021 PFIZER COVID-19 (12+) MRNA, LNP-S, PF, RICKIE-SUCROSE, 30 MCG/0.3 ML (COMIRNATY) 08/22/2024 PFIZER COVID-19 (ORIGINAL FORMULATION, PURPLE CAP) mRNA, LNP-S, PF, 30 MCG/0.3 ML DOSE 06/21/2021,02/14/2021,01/09/2021 PFIZER COVID-19 BIVALENT (12 +) mRNA, LNP-S, PF, 30 MCG/0.3 ML DOSE 08/06/2022 Pneumococcal (Generic) 10/29/2015 Pneumococcal (Pneumovax 23) 07/16/2018, 8,08/04/2003 Pneumococcal (Prevnar 13) 09/02/2015,10/29/2014 Pneumococcal (Prevnar 20) 04/18/2023 Polio Opv (Generic) 04/03/1975 Shingrix 12/07/2021,08/24/2021 Td (TDVAX) 05/10/2007,07/25/1999 Tdap (Generic) 06/19/2022,10/14/2014 Family History Medical History Relation Comments Asthma Father COPD Father Cancer Father Diabetes Father Arthritis Mother Heart Attack Mother Heart Disease Mother Hypertension Mother Open Heart Mother Stent Cardiac Mother Relation Status Comments Brother Alive Father Mother Alive Paternal Grandmother (Age 80s) Social History Tobacco Use Types Packs/Day Years Used Date Smoking Tobacco: Never Passive Smoke Exposure: Past Smokeless Tobacco: Never Tobacco Cessation:Counseling Given: Not Answered Alcohol Use Standard Drinks/Week Comments Yes 0 (1 standard drink = 0.6 oz pur e alcohol) occasional Overall Financial Resource Strain (CARDIA) Answe r Date Recorded How hard is it for you to pa y for the very basics like food, housing, medical care, and heating? Not hard at all 07/30/2023 PHQ-2 Answer Date Recorded Patient Health Questionnaire-2 Score 0 12/05/2024 Hunger Vital Sign Answer Date Recorded Within [...] place to sleep or slept in a detention (including now)? No 07/30/2023 Comments No Sex and Gender Information Value Date Recorded Sex Assigned at Female 11/26/2024 1:20 PM PLASTIC SHEETING CUTTER Legal Sex Female 5:37 PM CDT Gender Identity Female 11/26/2024 1:20 PM PLASTIC SHEETING CUTTER Sexual Orientation Not on file Occupation Industry Job Start Date Job End Date unemployed Not on file Not on file Not on file Last Filed Vital Signs Vital Sign Reading Time Taken Comments Blood Pressure 122/82 12/05/2024 1:07 PM PLASTIC SHEETING CUTTER Pulse 97 12/05/2024 1:07 PM PLASTIC SHEETING CUTTER Temperature 36.9 C (98.4 F) 12/05/2024 1:07 PM PLASTIC SHEETING CUTTER Respiratory Rate 18 12/05/2024 1:0 7 PM PLASTIC SHEETING CUTTER Oxygen Saturation 95% 12/05/2024 1:0 7 PM PLASTIC SHEETING CUTTER Inhaled Oxygen Concentration - - Weight 115.7 kg (255 lb) 03/01/2023 9:0 7 AM CDT Patient declined. Height 170.2 cm (5' 7 ) 12/05/2024 1:07 PM PLASTIC SHEETING CUTTER Body Mass Index 39.94 03/01/2023 9:07 AM CDT Plan of Treatment Upcoming Encounters Date Type Department Care Team (Late st Contact Info) Description 12/16/2024 11:30 AM PLASTIC SHEETING CUTTER Appointment [facility] [address] [place] [address] None, MD Joycelyn 12/16/2024 1:00 PM PLASTIC SHEETING CUTTER Appointment [facility] [address] [place] [address] Patel Garay MD [address] [address] 02/24/2025 1:00 PM CDT Office Visit [facility] Family & Internal Medicine - [address] [phone] Patricia Zamoranando Jesus [address] [place] [phone] Health Maintenance Due Date Last Done Comments Annual Physical 1972 Cervical Cancer Screening Pap with HPV Testing (Age 30 to 64) Every 5 Years 1999 Cervical Cancer Screening Pap Smear (Age 30 to 64) Every 3 Years 12/27/2024 12/27/2021, 12/27/2021, 11/29/2020 Cervical Cancer Screening with HPV 12/27/2024 Mammogram Screening 11/10/2025 11/10/2024, 11/10/2024, 07/27/2023, Additional history exists COVID-19 Vaccine ( season) 2025 08/22/2024, 08/12/2023, 08/06/2022, Additional history exists Postponed from 10/17/2024 (Patient Refused) Colorectal Cancer Screening Colonoscopy (10 Years) 10/11/2030 10/11/2020, 12/24/2019 DTaP, Tdap and Td Vaccines (3 - Td or Tdap) 06/19/2032 06/19/2022, 10/14/2014, 05/10/2007, Additional history exists Hepatitis B Vaccines Completed 03/07/2004, 09/30/2003, 08/19/2003 Zoster Vaccines Completed 12/07/2021, 08/24/2021 Pneumococcal Vaccine: Pediatrics (0 to 5 Years) and At-Risk Patients (6 to 64 Years) Completed 04/18/2023, 07/16/2018, 07/13/2018, Additional history exists Influenza Adult Completed 08/04/2024, 07/29, 07/30/2022, Additional history exists Hepatitis C Completed 08/26/2024 PHQ-2 (Physician [place]) Completed 12/05/2024 Meningococcal B Vaccine Aged Out No l onger eligible based on patient's age to complete this topic Meningococcal Vaccine Aged Out No erika elsa eligible based on patient's age to complete this topic RSV Immunizations Under 20 Months Aged Out No longer eligible based on patient's age to complete this topic Goals Goal Patient Goal Type Associated Problems Recent Progress Patient-Stated? Author Consistently take medications as Prescribed General On track(2024 3:27 PM PLASTIC SHEETING CUTTER) Nena Mohan RN Establish Plan for Symptom Monitoring- COPD/Asthma General On track(2024 3:27 PM PLASTIC SHEETING CUTTER) Nena Mohan RN Note: COPD/Asthma: Patient will recognize symptoms of COPD/Asthma exacerbation and report to the physician. If severe, patient will seek emergent treatment at [facility] or ER. 01/24/23: Patient seen by (Uniform Attendant) on 01/10/23 and will f/u on 03/28/23. Reduce Blood Pressure Lifestyle On track(2024 3:27 PM PLASTIC SHEETING CUTTER) Nena Mohan RN Note: Patient to monitor blood pressure weekly and report the onset of any changes. Patient will take medications as directed. Medical Devices Implanted Type Area Beef Cattle Specialist Device Identifier Shelf Expiration Date Model / Serial / Lot Mesh Umbilical Explanted Type Area [employer] Cattle Specialist Device Identifier Shelf Expiration Date Model / Serial / Lot Port-Right Side Explanted:Qty: 1 on 01/15/2023 by Tramaine Soler MD at [facility] Procedures Procedure Name Priority Date/Time Associated Diagnosis Comments MG/PCCL UDS W CONF Routine 11/26/2024 1: 05 PM PLASTIC SHEETING CUTTER Chronic pain syndrome Encounter for long-term (current) use of medications MAMMOGRAM GENERIC (SCAN ORDER) 11/10/2024 MAMMOGRAM GENERIC (SCAN ORDER) 11/10/2024 ENDOSCOPY (SCAN ORDER) 10/01/2024 HEPATITIS C ANTIBODY W/RFX TO HCV RNA Routine 08/26/2024 12:50 PM CDT Need for hepatitis C screening test Annual physical exam OUTSIDE CYTOPATH CERV/VAG INTERPRET (PAP) (SCAN ORDER) 12/27/2021 COLONOSCOPY GENERIC (SCAN ORDER) Routine 10/11/2020 from Last 3 Months or Most Recently Relevant to Health Maintenance Results * (ABNORMAL) MG/PCCL UDS W CONF (11/26/2024 1:05 PM PLASTIC SHEETING CUTTER) RESULT SUMMARY [employer] [facility] Comment: Prescribed Prescribed Not Prescribed Consistent Inconsistent Inconsistent [place](TM) PRESCRIBED DRUG 1 (U) [place](TM) [facility] [place] SCREEN (U) NEGATIVE <0.5 ng/mL [facility] MORPHINE (U) NEGATIVE <10 ng/mL [facility] DESMETHYLTRAMADOL (U) NEGATIVE <100 ng/mL [facility] TRAMADOL (U) NEGATIVE <100 ng/mL [facility] TRAMADOL COMMENTS [facility] Comment:See LDT Notes AMPHETAMINES PM NEGATIVE <500 ng/mL [facility] BARBITURATES PM (U) NEGATIVE <300 ng/mL [facility] BENZODIAZEPINES PM (U) NEGATIVE <100 ng/mL [facility] COCAINE METABOLITE PM (U) NEGATIVE <150 ng/mL [facility] MARIJUANA METABOLITE PM (U) NEGATIVE <20 ng/mL [facility] METHADONE PM (U) NEGATIVE <100 ng/mL [facility] OPIATES PM (U) POSITIVE(A) <100 ng/mL [facility] CODEINE PM (U) NEGATIVE <50 ng/mL [facility] HYDROCODONE PM (U) 214(H) <50 ng/mL [facility] HYDROCODONE PM MEDMATCH (U) CONSISTENT [facility] HYDROMORPHONE PM (U) NEGATIVE <50 ng/mL [facility] MORPHINE PM (U) NEGATIVE <50 ng/mL [facility] NORHYDROCODONE PM (U) 442(H) <50 ng/mL [facility] NORHYDROCODONE PM MM (U) CONSISTENT [facility] OPIATES COMMENTS [facility] Comment:See Opiates Notes, L DT Notes OXYCODONE PM (U) NEGATIVE <100 ng/mL [employer] [facility] [place] CREATININE RANDOM (U) 36.3 > or = 20.0 mg/dL [facility] pH PM (U) 5.8 4.5 - 9.0 [facility] [place] OXIDANT NEGATIVE <200 mcg/mL [employer] [place] NOTE [employer] [facility] Comment: This drug testing is for medical treatment only. Analysis was performed as non-forensic testing and these results should be used only by healthcare providers to render diagnosis or treatment, or to monitor progress of medical conditions. Opiates Notes: Hydrocodone, Norhydrocodone detected is consistent with the use of the drug Hydrocodone. The metabolite Hydromorphone is not present at or above the cutoff. LDT Notes: Confirmation tests were developed and their analytical performance characteristics have been determined by [facility]. It has not been cleared or approved by the FDA. This assay has been validated pursuant to the CLIA regulations and is used for clinical purposes. medMATCH(R) enables providers to identify if drug use is consistent or inconsistent with a corresponding prescribed medication(s) list. Healthcare Providers needing Interpretation assistance, please contact us at [phone] ( ) M-F, 8am to 10pm EST URINE SPECIMEN / Unknown 11/26/2024 1:05 PM PLASTIC SHEETING CUTTER 11/27/2024 4:54 AM PLASTIC SHEETING CUTTER Narrative Resulting Agency Comment Performing Organization Information: Site ID: [id number] Name: [employer] Address: [address] [place] [id number] Director: Edgar Singh Site ID: [id number] Name: [facility] Address: [address] [place] [address] Director: Danay Muñoz MD us Theodore Zamora DO URINE ORDERABLES Final R esult [employer] - LEVY ORDERS [facility] [address] [facility] [place] [address], [employer] [address] [place] [address] * MAMMOGRAM GENERIC (SCAN ORDER) (11/10/2024) Only the most recent of2 resultswithin the time period is included. Anatomical Region Laterality Modality Other 11/10/2024 [facility] Scanned SCANNING Final Resu lt * ENDOSCOPY (SCAN ORDER) (10/01/2024) 10/01/2024 [facility] Scanned SCANNING Final Resu lt * HEPATITIS C ANTIBODY W/RFX TO HCV RNA ([facility] ONLY) (08/26/2024 12:50 PM CDT) HEPATITIS C AB Non Reactive Non Reacti [facility] 1 INTERPRETATION Comment [facility] 1 Comment: Not infected with HCV unless early or acute infection is suspected (which may be delayed in an immunocompromised individual), or other evidence exists to indicate HCV infection. 08/26/2024 12:5 0 PM CDT 08/26/2024 Narrative [facility] - 08/27/2024 8:21 AM CDT Performed at: [facility] [id number] Lead Installer: Silvano Solitario PhD, Phone: [phone] us Theodore Zamora DO LABORATORY Final Re sult [facility] [address] [place] [address] [facility] 1 * PAP SMEAR (12/27/2021) 12/27/2021 Narrative 12/27/2021 Ordered by an unspecified provider. us Documents Scanned SCANNING Final Result * COLONOSCOPY (10/11/2020) us Documents Scanned SCANNING Final Result Performing Organization Address City/[facility]/ZIP Co de Phone Number [facility] ON[facility] from Last 3 Months or Most Recently Relevant to Health Maintenance Insurance MEDICARE [facility] MEDICARE [facility] Care Teams Hat Lining Paster Relationship Specialty Start Date End Date Theodore Zamora DO [address] [place] [address] PCP - General FAMILY PRACTICE 03/15/22 Nena Holland RN [address] [place], [place] [address] Assistant Professor Surgical Technology (Ambulatory) REGISTERED NURSE 03/17/22 Bonifacio Easton MD [facility] [place] [address] PULMONARY DISEASE 08/29/22
--- OUTSIDE RECORDS SUMMARY | 2024-12-14 13:22 | XMS_ITS | Encounter Summary ---
Author Organization [facility] Address [address] [place] [address] Care Team Providers Care Assisted Living Administrator Name Role Phone Theodore Zamora DO Primary Care Provider + Nena Holland RN Unavailable [phone] Bonifacio Easton MD Unavailable Encounter Details Date Type Department Care Team (Late st Contact Info) Description 05/15/2023 MyChart Message Enc [facility] Group Family & Internal Medicine [facility] [address] [place] [address] Theodore Zamora DO [address] [place] [address] Gyno biopsy Social History Tobacco Use Types Packs/Day Years Used Date Smoking Tobacco: Never Passive Smoke Exposure: Past Smokeless Tobacco: Never Alcohol Use Standard Drinks/Week Comments Yes 0 (1 standard drink = 0.6 oz pur e alcohol) occ PHQ-2 Answer Date Recorded Patient Health Questionnaire-2 Score 0 11/23/2022 Comments No Sex and Gender Information Value Date Recorded Sex Assigned at Female 11/26/2024 1:20 PM LEAD EMBEDDED SOFTWARE ENGINEER Legal Sex Female 5:37 PM CDT Gender Identity Female 11/26/2024 1:20 PM LEAD EMBEDDED SOFTWARE ENGINEER Sexual Orientation Not on file Occupation Industry Job Start Date Job End Date unemployed Not on file Not on file Not on file documented as of this encounter Progress Notes * Theodore Zamora DO - 05/18/2023 8:51 AM CDT Completed this. documented in this encounter Plan of Treatment Upcoming Encounters Date Type Department Care Team (Late st Contact Info) Description 12/16/2024 11:30 AM LEAD EMBEDDED SOFTWARE ENGINEER [facility]ointment [facility] [address] [place] [address] None, MD Joycelyn 12/16/2024 1:00 PM LEAD EMBEDDED SOFTWARE ENGINEER [facility]ointment [facility] [address] [place] [address] Patel Garay MD [address] [address] 02/24/2025 1:00 PM CDT Office Visit [facility] Family & Internal Medicine [facility] [address] [place] [address] Theodore Zamora DO [address] [place] [address] documented as of this encounter Goals Goal Patient Goal Type Associated Problems Recent Progress Patient-Stated? Author Consistently take medications as Prescribed General On track(2024 3:27 PM LEAD EMBEDDED SOFTWARE ENGINEER) No Nena Holland RN Establish Plan for Symptom Monitoring- COPD/Asthma General On track(2024 3:27 PM LEAD EMBEDDED SOFTWARE ENGINEER) Nena Mohan RN Note: COPD/Asthma: Patient will recognize symptoms of COPD/Asthma exacerbation and report to the physician. If severe, patient will seek emergent treatment at [facility] or ER. 01/24/23: Patient seen by (Fixed Interest Dealer) on 01/10/23 and will f/u on 03/28/23. Reduce Blood Pressure Lifestyle On track(2024 3:27 PM LEAD EMBEDDED SOFTWARE ENGINEER) No Holland, Nnea R, RN Note: Patient to monitor blood pressure weekly and report the onset of any changes. Patient will take medications as directed. documented as of this encounter Visit Diagnoses Not on filedocumented in this encounter Additional Health Concerns Assessment Noted Time PHQ-9 Depression Total Score: 0 04/21/20 8:42 AM CDT documented as of this encounter Care Teams Assisted Living Administrator Relationship Specialty Start Date End Date Theodore Zamora DO [address] [place] [address] PCP - General FAMILY PRACTICE 03/15/22 Nena Holland RN [facility] [place] [address] Marble Machine Tender (Ambulatory) REGISTERED NURSE 03/17/22 Bonifacio Easton MD [address] [place] [phone] PULMONARY DISEASE 08/29/22 documented as of this encounter
--- OUTSIDE RECORDS SUMMARY | 2024-12-14 13:22 | XMS_ITS | Encounter Summary ---
Author Organization [facility] Address [facility] [place] [address] Care Team Providers Care Hand Sprayer Name Role Phone Graciela Artis MD Primary Care Provider [phone] Derian Gilliam MD Unavailable [phone] Theodore Zamora DO Primary Care Provider + Nena Holland RN Unavailable [phone] Bonifacio Easton MD Unavailable Encounter Details Date Type Department Care Team (Late st Contact Info) Description 04/11/2019 Abstract [facility] at [address] [address] Melo Patino MA Social History Tobacco Use Types Packs/Day Years Used Date Smoking Tobacco: Never Smokeless Tobacco: Never Alcohol Use Standard Drinks/Week Comments Yes 0 (1 standard drink = 0.6 oz pur e alcohol) occ Comments Unknown Sex and Gender Information Value Date Recorded Sex Assigned at Female 11/26/2024 1:20 PM INSPECTOR FINAL ASSEMBLY CONVEYOR LINE Legal Sex Female 5:37 PM CDT Gender Identity Female 11/26/2024 1:20 PM INSPECTOR FINAL ASSEMBLY CONVEYOR LINE Sexual Orientation Not on file Occupation Industry Job Start Date Job End Date unemployed Not on file Not on file Not on file documented as of this encounter Plan of Treatment Upcoming Encounters Date Type Department Care Team (Late Contact Info) Description 12/16/2024 11:30 AM INSPECTOR FINAL ASSEMBLY CONVEYOR LINE Appointment [facility] [address] [place] [address] None, MD Joycelyn 12/16/2024 1:00 PM INSPECTOR FINAL ASSEMBLY CONVEYOR LINE Appointment [facility] [address] [place] [address] Patel Garay MD 3 [facility] [address] [place] [address] 02/24/2025 1:00 PM CDT Office Visit [facility] Medical Group Family & Internal Medicine [facility] [address] [place] [address] Theodore Zamora DO [address] [place], [place] [id number] documented as of this encounter Procedures Procedure Name Priority Date/Time Associated Diagnosis Comments ESR (OUTSIDE LAB) Routine 12/25/2018 CBC (OUTSIDE LAB) Routine 12/25/2018 COMPREHENSIVE METABOLIC PANEL Routine 12/25/2018 C-REACTIVE PROTEIN Routine 12/25/2018 THYROID STIM HORMONE TSH Routine 12/25/2018 VITAMIN D, 25 OH Routine 12/25/2018 FERRITIN Routine 12/25/2018 documented in this encounter Results * COMPREHENSIVE METABOLIC PANEL (12/25/2018) SODIUM S/P/B 134 POTASSIUM S/P/B 4.4 CO2 27 CHLORIDE S/P/B 101 GLUCOSE 102 mg/dL CALCIUM S/P/B 9.0 BUN 13 CREATININE S/P/B 0.89 0.5 - 1.0 EGFR AFR. AMER. 76 <=90 EGFR NON-AFR. AMER. 88 <=90 ALKALINE PHOSPHATASE S/P/B 61 ALT 12 AST 13 BILIRUBIN TOTAL S/P/B 0.3 ALBUMIN S/P/B 4.3 3.5 - 5.0 TOTAL PROTEIN S/P/B 7.1 GLOBULIN 2.8 12/25/2018 us Doc [facility] LABORATORY Final Result * CBC (OUTSIDE LAB) (12/25/2018) WBC 9.5 HGB 12.7 HCT 37.9 PLT 454 12/25/2018 us Doc [facility] LAB-OUTSIDE/ABSTRACTED Final Result * VITAMIN D, 25 OH (12/25/2018) Pathologist [facility] VITAMIN D 25 HYDROXY S/P/B 6 12/25/2018 us Doc [facility] LABORATORY Final Result * ESR (OUTSIDE LAB) (12/25/2018) SED RATE 29 0 - 30 mm/hr 12/25/2018 [facility] LAB-OUTSIDE/ABSTRACTED Edite d Result - Final * FERRITIN (12/25/2018) Pathologist [facility] FERRITIN 11 12/25/2018 us Doc [facility] LABORATORY Edited Resul t - Final * C-REACTIVE PROTEIN (12/25/2018) CRP 7.3 12/25/2018 us Doc [facility] LABORATORY Edited Resul t - Final * THYROID STIM HORMONE, TSH (12/25/2018) TSH 1.15 12/25/2018 us Doc [facility] LABORATORY Edited Resul t - Final documented in this encounter Visit Diagnoses Not on filedocumented in this encounter Care Teams Hand Sprayer Relationship Specialty Start Date End Date Graciela Artis MD [facility] [address] [place] [address] PCP - General FAMILY PRACTICE 02/19/19 03/14/22 Theodore Zamora DO [address] [place] [address] PCP - General FAMILY PRACTICE 03/15/22 Derian Gilliam MD [address] [address] [place]oy Surveillance Inspector CARDIOVASCULAR DISEASE 03/17/19 03/14/22 Nena Holland, RN [address] [place], [place] [phone] Outside Sales Inspector (Ambulatory) REGISTERED NURSE 03/17/22 Bonifacio Easton MD [facility]1 [place], [place] [address] PULMONARY DISEASE 08/29/22 documented as of this encounter
--- OUTSIDE RECORDS SUMMARY | 2024-12-14 13:22 | XMS_ITS | Encounter Summary ---
Author Organization [facility] Address [facility] [address] Care Team Providers Care Supervisor Word Processing Name Role Phone Theodore Zamora DO Primary Care Provider + Nena Holland RN Unavailable [phone] Bonifacio Easton MD Unavailable Encounter Details Date Type Department Care Team (Late st Contact Info) Description 08/02/2023 MyChart Message Enc [facility] Family & Internal Medicine [facility] [address] [place] [address] Theodore Zamora DO [address] [place] [address] Mammogram Results Social History Tobacco Use Types Packs/Day Years [...] Sex Assigned at Female 11/26/2024 1:20 PM FILM REPLACEMENT ORDERER Legal Sex Female 5:37 PM CDT Gender Identity Female 11/26/2024 1:20 PM FILM REPLACEMENT ORDERER Sexual Orientation Not on file Occupation Industry Job Start Date Job End Date unemployed Not on file Not on file Not on file documented as of this encounter Plan of Treatment Upcoming Encounters Date Type Department Care Team (Late st Contact Info) Description 12/16/2024 11:30 AM FILM REPLACEMENT ORDERER Appointment [facility] [address] [place] [address] None, MD Joycelyn 12/16/2024 1:00 PM FILM REPLACEMENT ORDERER Appointment [facility] [address] [place] [address] Patel Garay MD [address] [address] 02/24/2025 1:00 PM CDT Office Visit [facility] Medical Group Family & Internal Medicine - [address] [address] Theodore Zamora, [address] [place] [address] documented as of this encounter Goals Goal Patient Goal Type Associated Problems Recent Progress Patient-Stated? Author Consistently take medications as Prescribed General On track(2024 3:27 PM FILM REPLACEMENT ORDERER) No Nena Holland RN Establish Plan for Symptom Monitoring- COPD/Asthma General On track(2024 3:27 PM FILM REPLACEMENT ORDERER) Nena Mohan RN Note: COPD/Asthma: Patient will recognize symptoms of COPD/Asthma exacerbation and report to the physician. If severe, patient will seek emergent treatment at [facility] or ER. 01/24/23: Patient seen by (Park Aide) on 01/10/23 and will f/u on 03/28/23. Reduce Blood Pressure Lifestyle On track(2024 3:27 PM FILM REPLACEMENT ORDERER) Nena Mohan RN Note: Patient to monitor blood pressure weekly and report the onset of any changes. Patient will take medications as directed. documented as of this encounter Visit Diagnoses Not on filedocumented in this encounter Additional Health Concerns Assessment Noted Time PHQ-9 Depression Total Score: 0 04/21/20 22 8:42 AM CDT documented as of this encounter Care Teams Supervisor Word Processing Relationship Specialty Start Date End Date Theodore Zamora DO [address] [place] [address] PCP - General FAMILY PRACTICE 03/15/22 [place] [address] [place] [phone] Geotechnical Field Technician (Ambulatory) REGISTERED NURSE 03/17/22 Bonifacio Easton MD [address] [place] [phone] PULMONARY DISEASE 08/29/22 documented as of this encounter
--- OUTSIDE RECORDS SUMMARY | 2024-12-14 13:22 | XMS_ITS | Encounter Summary ---
Author Organization [facility] Address [address] [place] [address] Care Team Providers Care Masonry Teacher Name Role Phone Theodore Zamora DO Primary Care Provider + Nena Holland RN Unavailable [phone] Bonifacio Easton MD Unavailable Encounter Details Date Type Department Care Team (Late st Contact Info) Description 04/11/2023 MyChart Message Enc [facility] Group Family & Internal Medicine [facility] [address] [place] [address] Theodore Zamora DO [address] [place] [address] Port surgery. Social History Tobacco Use Types Packs/Day Years Used Date Smoking Tobacco: Never Passive Smoke Exposure: Past Smokeless Tobacco: Never Alcohol Use Standard Drinks/Week Comments Yes 0 (1 standard drink = 0.6 oz pur e alcohol) occ PHQ-2 Answer Date Recorded Patient Health Questionnaire-2 Score 0 11/23/2022 Comments No Sex and Gender Information Value Date Recorded Sex Assigned at Female 11/26/2024 1:20 PM SERVICE DELIVERY ANALYST Legal Sex Female 5:37 PM CDT Gender Identity Female 11/26/2024 1:20 PM SERVICE DELIVERY ANALYST Sexual Orientation Not on file Occupation Industry Job Start Date Job End Date unemployed Not on file Not on file Not on file COVID-19 Exposure Response Date Recorded In the last 10 days, have yo u been in contact with someone who was confirmed or suspected to have Coronavirus/COVID-19? No / Unsure 03/14/2023 9:41 AM CDT documented as of this encounter Plan of Treatment Upcoming Encounters Date Type Department Care Team (Late st Contact Info) Description 12/16/2024 11:30 AM SERVICE DELIVERY ANALYST Appointment [facility] [address] [place] [address] None, MD Joycelyn 12/16/2024 1:00 PM SERVICE DELIVERY ANALYST Appointment [facility] [address] [place] [address] Patel Garay MD [address] [address] 02/24/2025 1:00 PM CDT Office Visit [facility] Group Family & Internal Medicine [facility] [address] [place] [address] Theodore Zamora DO [address] [place] [address] documented as of this encounter Goals Goal Patient Goal Type Associated Problems Recent Progress Patient-Stated? Author Consistently take medications as Prescribed General On track(2024 3:27 PM SERVICE DELIVERY ANALYST) No Nena Holland RN Establish Plan for Symptom Monitoring- COPD/Asthma General On track(2024 3:27 PM SERVICE DELIVERY ANALYST) Nena Mohan RN Note: COPD/Asthma: Patient will recognize symptoms of COPD/Asthma exacerbation and report to the physician. If severe, patient will seek emergent treatment at [facility] or ER. 01/24/23: Patient seen by (Industrial Order Clerk) on 01/10/23 and will f/u on 03/28/23. Reduce Blood Pressure Lifestyle On track(2024 3:27 PM SERVICE DELIVERY ANALYST) Nena Mohan RN Note: Patient to monitor blood pressure weekly and report the onset of any changes. Patient will take medications as directed. documented as of this encounter Visit Diagnoses Not on filedocumented in this encounter Additional Health Concerns Assessment Noted Time PHQ-9 Depression Total Score: 0 04/21/20 22 8:42 AM CDT documented as of this encounter Care Teams Masonry Teacher Relationship Specialty Start Date End Date Theodore Zamora DO [address] [place] [address] PCP - General FAMILY PRACTICE 03/15/22 Nena Holland RN [address] [place] [address] Door Person (Ambulatory) REGISTERED NURSE 03/17/22 Bonifacio Easton MD [address] [place] [address] PULMONARY DISEASE 08/29/22 documented as of this encounter
--- OUTSIDE RECORDS SUMMARY | 2024-12-14 13:23 | XMS_ITS | Continuity of Care Document ---
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 It does not include entries that were removed or entered in error. 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 BOTTLE Cancele d [id number] : 2023 0 Pharmac y Data Transac tion Service Facilit y AMLODIPINE BESYLATE (amlodipine besylate), 10 MG, TABLET, ORAL, LUPIN PHARMACEU, 1000 ea. BOTTLE Cancele d [id number] : 2023 0 Pharmac y Data Transac tion Service Facilit y AMLODIPINE BESYLATE (amlodipine besylate), 10 MG, TABLET, ORAL, LUPIN PHARMACEU, 1000 ea. BOTTLE Active [id number] 4 2023 90 Pharmac y Data Transac tion Service Facilit y Benzonatate ([employer]) 100 CAPSULE in 1 BOTTLE Active [id number] 11/14/19 2 4 2023 30 Pharmac y Data Transac tion Service Facilit y benzonatate 100 mg oral capsule TAKE ONE CAPSULE THREE TIMES DAILY DIRECTED , # 270 EA, 3 total refill(s ), Acute Complet ed 01/09/2024 270.0 Ambulat ory Pharmac y CEPHALEXIN (CEPHALEXIN MONOHYDRATE ), 500MG, CAPSULE, ORAL, AUROBINDO PHARM, 500 ea. BOTTLE Active [id number] 4 2023 14 Pharmac y Data Transac tion Service Facilit y CICLOPIROX (CICLOPIROX ), 8%, SOLUTION, TOPICAL, PERR[employer]., 6.6 ml BOTTLE Cancele d [id number] : 2023 0 Pharmac y Data Transac tion Service Facilit y CICLOPIROX (CICLOPIROX ), 8%, SOLUTION, TOPICAL, PERR[employer]O [employer]., 6.6 ml BOTTLE Cancele d [id number] : 2023 0 Pharmac y Data Transac tion Service Facilit y CICLOPIROX (CICLOPIROX ), 8%, SOLUTION, TOPICAL, PERRIGO CO., 6.6 ml BOTTLE Active [id number] 4 2023 6.6 Pharmac y Data Transac tion Service Facilit y CIPROFLOXAC IN-DEXAMETH ASONE (ciprofloxa jose c HCl/dexamet hasone), 0.3 %-0.1%, DROPS SUSP, OTIC (EAR), 'S LAB, 7.5 ml DROP BTL Active [id number] 2023 7.5 Pharmac y Data Transac tion Service Facilit y CLOBETASOL PROPIONATE (clobetasol propionate) , 0.05 %, CREAM (G), TOPICAL, ENCUBE ETHICALS, 60 g TUBE Cancele d [id number] : 2023 0 Pharmac y Data Transac tion Service Facilit y CLOBETASOL PROPIONATE (clobetasol propionate) , 0.05 %, OINT. (G), TOPICAL, ENCUBE ETHICALS, 30 g TUBE Active [id number] 2023 60 Pharmac y Data Transac tion Service Facilit y CYANOCOBALA MIN INJECTION (cyanocobal aguirre (vitamin B-12)), 1000MCG/ML, VIAL, INJECTION, VITRUVIAS THERA, 1 ml VIAL Cancele d [id number] : 2023 0 Pharmac y Data Transac tion Service Facilit y DOXYCYCLINE HYCLATE (doxycyclin e hyclate), 100 MG, CAPSULE, ORAL, [employer], 500 ea. BOTTLE Active [id number] 4 2023 28 Pharmac y Data Transac tion Service Facilit y DULERA (mometasone furoate/for moterol fumarate), 200-5 MCG, HFA AER AD, INHALATION, [employer], 13 g AER W/ADAP Active [id number] 2023 39 Pharmac y Data Transac tion Service Facilit y DULERA (mometasone furoate/for moterol fumarate), 200-5 MCG, HFA AER AD, INHALATION, [employer] LLC, 13 g AER W/ADAP Active [id number] 2023 39 Pharmac y Data Transac tion Service Facilit y FEXOFENADIN E HCL (fexofenadi ne HCl), 180 MG, TABLET, ORAL, 'S LAB, 30 ea. BOTTLE Active [id number] 2023 90 Pharmac y Data Transac tion Service Facilit y FEXOFENADIN E HCL (fexofenadi ne HCl), 180 MG, TABLET, ORAL, 'S LAB, 30 ea. BOTTLE Active [id number] 4 2023 90 Pharmac y Data Transac tion Service Facilit y FLOVENT HFA (FLUTICASON E PROPIONATE) , 220 MCG, AER W/ADAP, INHALATION, GLAXOSMITHK LINE, 12 g AER W/ADAP Cancele d [id number] : 2023 0 Pharmac y Data Transac tion Service Facilit y FLOVENT HFA (FLUTICASON E PROPIONATE) , 220 MCG, AER W/ADAP, INHALATION, GLAXOSMITHK LINE, 12 g AER W/ADAP Active [id number] 2023 12 Pharmac y Data Transac tion Service Facilit y FOLIC ACID (folic acid), 1 MG, TABLET, ORAL, [employer], 90 ea. BOTTLE Cancele d [id number] : 2023 0 Pharmac y Data Transac tion Service Facilit y FOLIC ACID (folic acid), 1 MG, TABLET, ORAL, [employer], 90 ea. BOTTLE Cancele d [id number] : 2023 0 Pharmac y Data Transac tion Service Facilit y guaiFENesin 600 mg oral tablet, extended release TAKE ONE TABLET BY MOUTH EVERY TWELVE HOURS NEEDED FOR COUGH, # 90 EA, 3 total refill(s ), Acute Complet ed 01/09/2024 90.0 Ambulat ory Pharmac y HYDROCODONE -ACETAMINOP HEN (HYDROCODON E/ACETAMINO PHEN), 5MG-325MG, TABLET, ORAL, MALLINCKROD T PH, 500 ea. BOTTLE Active [id number] 4 2023 60 Pharmac y Data Transac tion Service Facilit y HYDROCODONE -ACETAMINOP HEN (HYDROCODON E/ACETAMINO PHEN), 5MG-325MG, TABLET, ORAL, MALLINCKROD T PH, 500 ea. BOTTLE Active [id number] 4 2023 60 Pharmac y Data Transac tion Service Facilit y HYDROCODONE -ACETAMINOP HEN (HYDROCODON E/ACETAMINO PHEN), 5MG-325MG, TABLET, ORAL, MALLINCKROD T PH, 500 ea. BOTTLE Active [id number] 4 2023 60 Pharmac y Data Transac tion Service Facilit y HYDROCODONE -ACETAMINOP HEN (HYDROCODON E/ACETAMINO PHEN), 5MG-325MG, TABLET, ORAL, MALLINCKROD T PH, 500 ea. BOTTLE Active [id number] 2023 60 Pharmac y Data Transac tion Service Facilit y HYDROCODONE -ACETAMINOP HEN (HYDROCODON E/ACETAMINO PHEN), 5MG-325MG, TABLET, ORAL, MALLINCKROD T PH, 500 ea. BOTTLE Active [id number] 2023 60 Pharmac y Data Transac tion Service Facilit y HYDROCODONE -ACETAMINOP HEN (HYDROCODON E/ACETAMINO PHEN), 5MG-325MG, TABLET, ORAL, MALLINCKROD T PH, 500 ea. BOTTLE Active [id number] 2023 60 Pharmac y Data Transac tion Service Facilit y HYDROCODONE -ACETAMINOP HEN (HYDROCODON E/ACETAMINO PHEN), 5MG-325MG, TABLET, ORAL, MALLINCKROD T PH, 500 ea. BOTTLE Active [id number] 2023 30 Pharmac y Data Transac tion Service Facilit y HYDROCODONE -ACETAMINOP HEN (HYDROCODON E/ACETAMINO PHEN), 5MG-325MG, TABLET, ORAL, MALLINCKROD T PH, 500 ea. BOTTLE Active [id number] 2023 30 Pharmac y Data Transac tion Service Facilit y HYDROCODONE -ACETAMINOP HEN (HYDROCODON E/ACETAMINO PHEN), 5MG-325MG, TABLET, ORAL, MALLINCKROD T PH, 500 ea. BOTTLE Active [id number] 4 2023 30 Pharmac y Data Transac tion Service Facilit y HYDROCODONE -ACETAMINOP HEN (HYDROCODON E/ACETAMINO PHEN), 5MG-325MG, TABLET, ORAL, MALLINCKROD T PH, 500 ea. BOTTLE Active [id number] 2023 30 Pharmac y Data Transac tion Service Facilit y HYDROCODONE -ACETAMINOP HEN (HYDROCODON E/ACETAMINO PHEN), 5MG-325MG, TABLET, ORAL, MALLINCKROD T PH, 500 ea. BOTTLE Active [id number] 2022 30 Pharmac y Data Transac tion Service Facilit y HYDROCODONE -ACETAMINOP HEN (HYDROCODON E/ACETAMINO PHEN), 5MG-325MG, TABLET, ORAL, MALLINCKROD T PH, 500 ea. BOTTLE Active [id number] 3 2022 30 Pharmac y Data Transac tion Service Facilit y Lamotrigine (Lamotrigin e), 200mg, Tablet, Oral, Auro[employer] Pharm, 60 Ea. Bottle Active [id number] 4 2023 180 Pharmac y Data Transac tion Service Facilit y Lamotrigine (Lamotrigin e), 200mg, Tablet, Oral, [employer] [place], 60 Ea. Bottle Active [id number] 2023 180 Pharmac y Data Transac tion Service Facilit y LIOTHYRONIN E SODIUM (liothyroni ne sodium), 5 MCG, TABLET, ORAL, SIGMAPHARM LABO, 90 ea. BOTTLE Active [id number] 2023 180 Pharmac y Data Transac tion Service Facilit y MUPIROCIN (MUPIROCIN) , 2%, OINT.(GM), TOPICAL, PERRIGO CO., 22 g TUBE Active [id number] 4 2023 22 Pharmac y Data Transac tion Service Facilit y NALOXONE HCL (naloxone HCl), 4 MG, SPRAY, NASAL, TEVA USA, 2 ea. BLIST PACK Active [id number] 2023 2 Pharmac y Data Transac tion Service Facilit y OLOPATADINE HCL (olopatadin e HCl), 0.1 %, DROPS, OPHTHALMIC, SOMERSET THERAP, 5 ml DROP BTL Cancele d [id number] : 2023 0 Pharmac y Data Transac tion Service Facilit y OLOPATADINE HCL (olopatadin e HCl), 0.1 %, DROPS, OPHTHALMIC, SOMERSET THERAP, 5 ml DROP BTL Cancele d [id number] : 2023 0 Pharmac y Data Transac tion Service Facilit y OMEPRAZOLE (OMEPRAZOLE ), 40 MG, CAPSULE DR, ORAL, ZYDUS PHARMACEU, 1000 ea. BOTTLE Active [id number] 4 2023 180 Pharmac y Data Transac tion Service Facilit y OMEPRAZOLE (OMEPRAZOLE ), 40 MG, CAPSULE DR, ORAL, ZYDUS PHARMACEU, 1000 ea. BOTTLE Active [id number] 4 2023 180 Pharmac y Data Transac tion Service Facilit y ONDANSETRON HCL (ONDANSETRO N HCL), 4MG, TABLET, ORAL, AUROBINDO PHARM, 30 ea. BOTTLE Active [id number] 2023 30 Pharmac y Data Transac tion Service Facilit y OXYCODONE-A CETAMINOPHE N (OXYCODONE HCL/ACETAMI NOPHEN), 7.5-325MG, TABLET, ORAL, MALLINKRT PHARM, 100 ea. BOTTLE Active [id number] 4 2023 5 Pharmac y Data Transac tion Service Facilit y PREDNISONE (prednisone ), 20 MG, TABLET, ORAL, NOVITIUM/AN I PH, 500 ea. BOTTLE Active [id number] 2023 10 Pharmac y Data Transac tion Service Facilit y RIVAROXABAN 20 MG ORAL TAB Take or use exactly as directed .Obtain advice for OTCs.Donna ck with your doctor before becoming .Take with food. 10/30/2024 [id number] 2023 90 [employer] Dre [facility] ([facility]) Spiriva Respimat 2.5 mcg inhaler (4g) See [...] (tacrolimus ), 0.1 %, OINT. (G), TOPICAL, Marvin PHARMA, 30 g TUBE Active [id number] 2023 30 Pharmac y Data Transac tion Service Facilit y THEOPHYLLIN E ER (theophylli ne anhydrous), 300 MG, TAB ER 12H, ORAL, TEVA PHARM, 100 ea. BOTTLE Cancele d [id number] : 2023 0 Pharmac y Data Transac tion Service Facilit y THEOPHYLLIN E ER (theophylli ne anhydrous), 300 MG, TAB ER 12H, ORAL, TEVA PHARM, 100 ea. BOTTLE Active [id number] 4 2023 180 Pharmac y Data Transac tion Service Facilit y THEOPHYLLIN E ER (theophylli ne anhydrous), 300 MG, TAB ER 12H, ORAL, TEVA PHARM, 100 ea. BOTTLE Active [id number] 2022 180 Pharmac y Data Transac tion Service Facilit y THEOPHYLLIN E ER (theophylli ne anhydrous), 300 MG, TAB ER 12H, ORAL, TEVA PHARM, 100 ea. BOTTLE Active [id number] 2023 180 Pharmac y Data Transac tion Service Facilit y tiotropium 18 mcg inhalation capsule INHALE CONTENTS OF ONE CAPSULE VIA HANDIHAL ER ONCE DAILY DIRECTED , # 30 EA, 4 total refill(s ), Acute Complet ed 08/14/2023 30.0 Ambulat ory Pharmac y UNITHROID (LEVOTHYROX INE SODIUM), 25 MCG, TABLET, ORAL, [employer], 100 ea. BOTTLE Active [id number] 4 2023 120 Pharmac y Data Transac tion Service Facilit y UNITHROID (LEVOTHYROX INE SODIUM), 25 MCG, TABLET, ORAL, LUCILA LABORATO, 100 ea. BOTTLE Active [id number] 4 2023 120 Pharmac y Data Transac tion Service Facilit y VITAMIN D2 (ergocalcif talisha (vitamin D2)), 1250 MCG, CAPSULE, ORAL, EP[employer] LLC, 100 ea. BOTTLE Active [id number] 4 2023 5 Pharmac y Data Transac tion Service Facilit y VITAMIN D2 (ergocalcif talisha (vitamin D2)), 1250 MCG, CAPSULE, ORAL, [employer], 100 ea. BOTTLE Active [id number] 4 2023 5 Pharmac y Data Transac tion Service Facilit y VITAMIN D2 (ergocalcif talisha (vitamin D2)), 1250 MCG, CAPSULE, ORAL, [employer], 100 ea. BOTTLE Active [id number] 4 2023 5 Pharmac y Data Transac tion Service Facilit y VITAMIN D2 (ergocalcif talisha (vitamin D2)), 1250 MCG, CAPSULE, ORAL, [employer], 100 ea. BOTTLE Active [id number] 4 2023 5 Pharmac y Data Transac tion Service Facilit y VITAMIN D2 (ergocalcif talisha (vitamin D2)), 1250 MCG, CAPSULE, ORAL, [employer], 100 ea. BOTTLE Active [id number] 4 2023 5 Pharmac y Data Transac tion Service Facilit y VITAMIN D2 (ergocalcif talisha (vitamin D2)), 1250 MCG, CAPSULE, ORAL, [employer], 100 ea. BOTTLE Active [id number] 4 2023 5 Pharmac y Data Transac tion Service Facilit y XARELTO (RIVAROXABA N), 20 MG, TABLET, ORAL, [employer] PH[employer]., 30 ea. BOTTLE Active [id number] 4 2023 30 Pharmac y Data Transac [...] Drug allergy (disorder ) Unknown active [address] [place] [address] Dre HAHN ([facility]) aspirin Drug allergy Anaphylaxis Severe Active 4 ANAPHYLAXIS (PER 3066 5--03) Ambulator y Pharmacy IBUPROFEN (IBUPROFEN ) Drug allergy (disorder ) Unknown active [address] [place] [address] Dre HAHN ([facility]) ibuprofen Drug allergy Unknown Unknown Active 4 per 3066 (3-6-03) Ambulator y Pharmacy NSAID Drug allergy (disorder ) Unknown active [address] [place] [address] Dre [facility] NSAIDs Drug allergy Anaphylaxis Severe Active [facility] Ambulato r y Pharmacy OTHER Drug allergy (disorder ) Unknown active 4 [facility] Dre [facility] ([facility]) Immunizations Combined list of available immunizations from the Department of Defense and Veterans Affairs facilities. Immunization Series Date Given Administered By Site Reaction Lot Number CVX Code Drug Cv Rn Status Comments Source Tdap 2021 ALUL, () Not Given Tdap DoD COVID-19, mRNA, LNP-S, PF, 30 mcg/0.3 mL dose, abdirahman-sucrose 2021 TURABELIDZE,G EORGE [employer] (PFR) Not Given COVID-19, mRNA, LNP-S, [...] PF, 30 mcg/0.3 mL dose 2020 MAGNO, [employer] [facility] (PFR) Not Given COVID-19, mRNA, LNP-S, [...] ent DoD influenza virus vaccine, live 2009 [id number] 111 [employer] patrick t ed influenza virus vaccine, live 07/19/10 Given Ambulat ory Pharmac y influenza virus vaccine, live, attenuated, for intranasal use 1 2009 Unknown, Provider [id number] 111 [employer] (MED) complet ed influenza virus vaccine, live, attenuate d, for intranasa l use DoD Novel influenza-H1N 1-09, injectable 2009 zzLef t Arm [id number] 1 127 [employer]is [employer] ls complet ed Novel influenza -[id number], injectabl e 11/01/09 Given Ambulat ory Pharmac y Novel influenza-H1N 1-09, injectable 1 2009 Unknown, Provider [id number] 1 127 [employer]is [employer] [place]. (NOV) complet ed Novel influenza -[id number], injectabl e DoD influenza virus vaccine,split 2008 [...] hepatitis A-hepatitis B vaccine 2003 Olivier Arm [id number] 6 104 GlaxoSmithKli ne complet ed hepatitis A-hepatit is B vaccine 03/07/04 Given Ambulat ory Pharmac y hepatitis A and hepatitis B vaccine 3 2003 Unknown, Provider [id number] 6 104 [employer] (SKB) complet ed hepatitis A and hepatitis B vaccine DoD hepatitis A-hepatitis B vaccine 2002 zzRig ht Arm [id number] 6 104 GlaxoSmithKli ne complet ed hepatitis A-hepatit is B vaccine 09/30/03 Given Ambulat ory Pharmac y hepatitis A and hepatitis B vaccine 2 2002 Unknown, Provider [id number] 6 104 [employer] (SKB) complet ed hepatitis A and hepatitis B vaccine DoD influenza virus vaccine, whole virus 2002 zzLef t Arm [id number] 16 sanofi pasteur complet ed influenza virus vaccine, whole virus 08/19/03 Given Ambulat ory Pharmac y hepatitis A-hepatitis B vaccine 2002 zzLef t Arm [id number] 6 104 GlaxoSmithKli mn complet ed hepatitis A-hepatit is B vaccine 08/19/03 Given Ambulat ory Pharmac y influenza virus vaccine, whole virus 1 2002 Unknown, Provider [id number] 16 Sanofi Pasteur ([facility]) complet ed influenza virus vaccine, whole virus DoD hepatitis A and hepatitis B vaccine 1 2002 Unknown, Provider [id number] 6 104 [facility] (SKB) complet ed hepatitis A and hepatitis [...] vaccine, whole virus 2001 zzLef t Arm [id number] 16 sanofi pasteur complet ed influenza virus vaccine, whole virus 10/03/02 Given Ambulat ory Pharmac y influenza virus vaccine, whole virus 1 2001 Unknown, Provider [id number] 16 Sanofi Pasteur ([facility]) complet ed influenza virus vaccine, whole virus DoD tuberculin purified protein derivative 2001 zzLef t Arm [id number] 96 sanofi pasteur complet ed Patient Tolerance : Negative Ambulat ory Pharmac y tuberculin skin test; purified protein derivative solution, intradermal 1 2001 Unknown, Provider [id number] 96 Sanofi Pasteur ([facility]) complet ed tuberculi n skin test; purified protein derivativ e solution, intraderm al DoD tuberculin purified protein derivative 2000 [id number] 96 [facility] complet ed tuberculi n purified protein derivativ e 07/02/01 Given Ambulat ory Pharmac y tuberculin purified protein derivative 1998 2503-[address] [facility] complet ed tuberculi n purified protein derivativ e 07/25/99 Given Ambulat ory Pharmac y tetanus-dipht h toxoids (Td) adult/adol 1998 [id number] 09 [facility] complet ed tetanus-d iphth toxoids (Td) adult/ado l 07/25/99 Given Ambulat ory Pharmac y tetanus and diphtheria toxoids, adsorbed, preservative free, for adult use (2 Lf of tetanus toxoid and 2 Lf of diphtheria toxoid) 1 1998 Unknown, Provider [id number] 09 [place] (CON) complet ed tetanus and [...] ADM Date DC Date Status Disposition Source [address] [place] [address] Dre [facility] OUTPATIENT [id number] follow- up JERRICA MITCHELL 04/27 Released w/o Limitations [address] [place] [address] Dre [facility] [employer] T[facility]) [address] [place] [address] Dre [facility] ) TELE CONSULT [id number] biologist consult JERRICA MITCHELL 05/[address] [place] [address] Dre [facility] Tm) [address] [place] [address] Dre [facility]) TELE CONSULT [id number] ANTONIO COFFMAN 07/07 [employer] [facility] ([facility]A llergy Resourc e Sharing ) [employer] [facility] ([facility]All [facility]) TELE CONSULT [id number] ANTONIO COFFMAN 07/06 [employer] [facility] ([facility]A llergy Resourc e Sharing ) [employer] [facility] ([facility]All ergy Resource Sh[facility]) TELE CONSULT [id number] Lab results ANTONIO COFFMAN 07/11 [facility] ([facility]A llergy Resourc e Sharing ) [employer] [facility] ([facility]All ergy Resource Sharing) TELE CONSULT [id number] lab results [id number] ANTONIO COFFMAN 07/25 [facility] ([facility]A llergy Resourc e Sharing ) [facility] ([facility])(All ergy) TELE CONSULT [id number] hypogam jan bautista. ELIO HERRON 07/18 [facility]A llergy) [facility]Fam polo Practice Non-GME FHI1) OUTPATIENT [id number] naf physicbella l/ph#[phone] JIM DURÁN 07/09 Released w/o Limitations [employer] [facility]F amily Practic e Non-GME FHI1) [facility] ) TELE CONSULT [id number] NAF Physica l - ALIREZA Byrne 06/02 Referred for Appointment [employer] [facility]) [facility] ) OUTPATIENT [id number] NAF OCHOA Mock 06/23 Released w/o Limitations [address] [place] [address] Group [facility]) Procedures [...] Color Vision Testing Extensive Color Vision Testing 22365 0 QIANA, OCHOA E DoD Screening Test Of Visual Acuity, Quantitative, Bilateral Screening Test Of Visual Acuity, Quantitative, Bilateral 95700 0 QIANA, OCHOA E DoD Threshold Audiogram (Pure Tone) Threshold Audiogram (Pure Tone) 60637 0 QIANA, OCHOA E DoD BRONCHODILATION RESPONSIVENESS, [place] [address], PRE- AND POST-BRONCHODILATOR ADMINISTRATION 1 DoD INTRACUTANEOUS [...] LOOP 3 DoD BRONCHODILATION RESPONSIVENESS, [place] [address], PRE- AND POST-BRONCHODILATOR ADMINISTRATION 3 DoD IPRATROPIUM [...] at Department of Defense and Veterans Affairs ([place]).NE Functional Sterling Measurement (FIM) Scale: 1 = Total Assistance (Subject = 0% +), 2 = Maximal Assistance (Subject = 25% +), 3 = Moderate Assistance (Subject = 50% +), 4 = Minimal Assistance (Subject = 75% +), 5 = Supervision, 6 = Modified Sterling (Device), 7 = Complete Sterling (Timely, Safely). Assessment Date/Time Source Assessment Type Assessment Skill Assessment Score Assessment Details No data available for this section
[2024-12-14 13:50] VITALS: BP 140/79; PULSE 97; RESP 18; TEMP 36.6; O2SAT 95
--- NOTE | 2024-12-14 14:33 | ED.EYEPROB ---
HPI - Eye Problem General Chief complaint: Eye Problems Stated complaint: Bilateral Eye infection Source: patient Mode of arrival: ambulatory Limitations: no limitations History of Present Illness HPI Narrative: 54-year-old female presents to [facility] complaints of bilateral eye burning, minimal redness, drainage, minimal film type sensation to bilateral eyes and watery drainage for the past 1-2 weeks. Patient reports her was diagnosed with pinkeye yesterday. Patient wears glasses to drive. Patient does take [id number] Nneka daily for allergies. Patient denies injury to her eyes. Patient denies decreased vision, fever, body aches, chills, nausea vomiting or diarrhea chief complaint: eye pain Onset (ago): week(s) (1-2) Location: both eyes Eye Symptoms: redness, itching and discharge Mechanism: none Associated symptoms: none Related Data Home Medications ?Medication ?Instructions ?Recorded ?Confirmed ?Last Taken ?Type albuterol sulfate 2.5 mg/3 mL 2.5 mg inhalation Q6H PRN Dyspnea 09/03/19 03/31/24 08/24/23 09:00 History (0.083 %) solution for nebulization amlodipine 10 mg tablet 10 mg PO DAILY 09/03/19 03/31/24 08/24/23 09:00 History epinephrine 0.3 mg/0.3 mL 0.3 mg subcut DIRECTED PRN 09/03/19 03/31/24 Unknown History injection, auto-injector Anaphylaxis ergocalciferol (vitamin D2) 1,250 50,000 unit PO WEEKLY 09/03/19 03/31/24 08/17/23 09:00 History mcg (50,000 unit) capsule furosemide 40 mg tablet 40 mg PO DAILY 09/03/19 03/31/24 08/24/23 09:00 History guaifenesin 600 mg tablet, 600 mg PO BID PRN Cough 09/03/19 03/31/24 Unknown History extended release 12 hr (Mucinex) lamotrigine 200 mg tablet 200 mg PO BID 09/03/19 03/31/24 08/24/23 09:00 History omeprazole 20 mg capsule,delayed 60 mg PO BID 09/03/19 03/31/24 08/24/23 09:00 History release ondansetron HCl 4 mg tablet 4 mg PO Q8H PRN Nausea And Vomiting 09/03/19 03/31/24 11/13/21 History rivaroxaban 20 mg tablet (Xarelto) 20 mg PO DAILY 09/03/19 03/31/24 03/03/24 History theophylline 300 mg 300 mg PO BID 09/03/19 03/31/24 08/24/23 09:00 History tablet,extended release,12 hr tiotropium bromide 18 mcg capsule 18 mcg inhalation DAILY 09/03/19 03/31/24 08/23/23 09:00 History with inhalation device (Spiriva with HandiHaler) mometasone-formoterol HFA 200 2 puff inhalation BID 11/03/19 03/31/24 08/24/23 09:00 History mcg-5 mcg/actuation aerosol inhaler (Dulera) fexofenadine 180 mg tablet 180 mg PO DAILY 11/04/20 03/31/24 08/24/23 09:00 History (Nneka Allergy) ramipril 5 mg capsule (Altace) 5 mg PO BID 11/04/20 03/31/24 08/24/23 09:00 History diphenhydramine HCl 25 mg capsule 50 mg PO Q28D 01/25/21 03/31/24 11/13/21 History (Allergy (diphenhydramine)) fluticasone propionate 110 1 puff inhalation BID 01/25/21 03/31/24 08/24/23 09:00 History mcg/actuation HFA aerosol inhaler (Flovent HFA) folic acid 1 mg tablet 1 mg PO QAM 03/02/23 03/31/24 08/24/23 07:00 History levothyroxine 25 mcg tablet 50 mcg PO QMWF 03/02/23 03/31/24 08/24/23 07:00 History (Unithroid) Ivig See Rx Instructions .Route .COMPLEX 04/04/23 03/31/24 07/28/23 09:00 History liothyronine 5 mcg tablet 5 mcg PO BID 05/02/23 03/31/24 08/24/23 09:00 History acetaminophen 325 mg tablet 650 mg PO Q6H PRN pain or fever 08/24/23 03/31/24 Unknown History (Tylenol) lansoprazole 15 mg capsule,delayed 15 mg PO BID 08/24/23 03/31/24 Unknown History release (Prevacid 24Hr) levothyroxine 25 mcg tablet 25 mcg PO QTUTHSASU 08/24/23 03/31/24 08/23/23 09:00 History (Unithroid) hydrocodone 5 mg-acetaminophen 325 1 tablet PO Q6-8H PRN pain 03/04/24 03/31/24 Unknown History mg tablet Allergies Allergy/AdvReac Type Severity Reaction Status Date / Time aspirin Allergy Severe anaphylaxis Verified 03/31/24 13:05 aztreonam Allergy Severe RASH Verified 03/31/24 13:05 ibuprofen Allergy Severe Anaphylaxis Verified 03/31/24 13:05 NSAIDS (Non-Steroidal Allergy Severe Anaphylactic Verified 03/31/24 13:05 Anti-Inflamma Shock shellfish derived Allergy Severe Swelling Verified 03/31/24 13:05 of Lip/Tongue/Throat adhesive Allergy Intermediate rash Verified 03/31/24 13:05 ciprofloxacin Allergy Intermediate Hives Verified 03/31/24 13:05 latex Allergy Intermediate Dyspnea Verified 03/31/24 13:05 nifedipine Allergy Intermediate Urticaria Verified 03/31/24 13:05 sulfamethizole Allergy Intermediate Urticaria Verified 03/31/24 13:05 terbinafine Allergy Intermediate Urticaria Verified 03/31/24 13:05 trimethoprim Allergy Intermediate Hives Verified 03/31/24 13:05 vancomycin Allergy Intermediate Rash Verified 03/31/24 13:05 Review of Systems Constitutional: Constitutional: Denies chills, Denies fatigue, Denies fever(s) and Denies weakness Eyes: Eyes: Denies change in vision Comments: Bilateral eye redness, burning, watery discharge ENT: Denies vertigo, Denies dizziness and Denies epistaxis Respiratory: Respiratory: Denies cough, Denies dyspnea and Denies wheezing Gastrointestinal: Gastrointestinal: Denies diarrhea, Denies nausea and Denies vomiting Musculoskeletal: Musculoskeletal: Denies arthralgias and Denies joint swelling Integumentary/Breasts: Skin/Breast: Denies erythema Neurologic: Denies syncope and Denies headache(s) [facility] Past Medical History Medical History Degenerative arthritis of knee, bilateral Encounter for postoperative care Common variable immunodeficiency Irritable bowel IgM deficiency GI bleed Depression Anxiety Foot fracture, left Arthropathy of right knee Arthritis Fibromyalgia PCOS (polycystic ovarian syndrome) GERD (gastroesophageal reflux disease) Pulmonary embolism Asthma Emphysema of lung COPD (chronic obstructive pulmonary disease) DVT (deep venous thrombosis) HTN (hypertension) HLD (hyperlipidemia) Raynauds syndrome Colitis Dx 03 September 2019 Surgical History Surgical History History of hysteroscopy October of 2021 History of incision and drainage Removal of right subclavian port-a-cath and I&D of right chest abscess on 03/02/23. History of knee surgery x 2 right x 1 left H/O laminectomy History of ventral hernia repair (12/28/20) S/P laparoscopic-assisted sigmoidectomy (~03/2020) Performed due to: Stricture resulting in right ventral hernia H/O dilation and curettage History of endometrial ablation Hx of appendectomy H/O sinus surgery Hx of tonsillectomy Family History Family History Father Diabetes mellitus Hypertension Mother Rheumatoid arthritis Acute myocardial infarction Heart disease Hypertension Sibling Hypertension Diabetes mellitus Other Family history of gout Family history of obesity Family history unknown Social History Social History Social History: Surrogate medical decision maker: Hector Lambert, spouse. Code status: Full code. Smoking status: Never smoker Second hand tobacco smoke exposure: No Alcohol intake: current Drinks per week: 1 Alcohol use details: FEW A MONTH Substance use: never Substance use type: does not use Lack of Transportation: No Lack of Food: Never True Current Housing: I Have Housing Concerned About Future Housing: No Difficulty Paying Gas/Electric Bills: No Difficulty Paying for Meds: No Currently Unemployed: No Education: Associate Degree Difficulty w/ Childcare or Family Care: No Living arrangements: with family Spiritual care concerns: No Comments At time of signature, I agree with nursing past medical, surgical, social and family history. There is no relevant family history pertinent to the presenting complaint. Exam Const: General: healthy appearing and no acute distress Nutritional Appearance: well nourished Orientation/consciousness: patient oriented x3 Limitations: no limitations HENMT: Head: normal to inspection Eyes: Conjunctivae: conjunctival abnormality bilateral and localized Pupils: Equal, round and reactive pupils present Direct Ophthalmoscopy: no photophobia Other: Minimal erythema noted to bilateral conjunctiva. There is no active drainage noted Neck: Neck: normal visual inspection Resp: Effort & Inspection: normal respiratory effort and not labored Auscultation: clear to auscultation bilaterally, no crackles, no rales, no rhonchi and no wheezes Cardio: Rate: regular rate Rhythm: regular rhythm Heart sounds: no murmurs Skin: General skin exam: normal color Rashes: no rashes Neuro: General: patient oriented x3 and moves all extremities Speech: normal speech Gait exam (Neuro): Normal gait present Psych: Affect: normal affect Attitude: cooperative Course Course Level of Care: Express Care Visit Vital Signs Vital signs: Vital Signs Temperature 36.6 C 12/14/24 13:50 Pulse Rate 97 12/14/24 13:50 Respiratory Rate 18 12/14/24 13:50 Blood Pressure 140/79 12/14/24 13:50 Pulse Oximetry 95 12/14/24 13:50 Oxygen Delivery Room Air 12/14/24 13:50 Temperature 36.6 C 12/14/24 13:50 Pulse Rate 97 12/14/24 13:50 Respiratory Rate 18 12/14/24 13:50 Blood Pressure 140/79 12/14/24 13:50 Pulse Oximetry 95 12/14/24 13:50 Oxygen Delivery Room Air 12/14/24 13:50 MDM - Eye Problem MDM Narrative Medical decision making narrative: Instructed patient to continue taking Nneka daily. Instructed patient to use eyedrops as prescribed and follow-up with eye doctor if symptoms not improved Differential Diagnosis Differential diagnosis: Likely corneal abrasion and conjunctivitis Critical Care Time Critical Care Time Critical Care Time: No Discharge Plan Discharge Clinical Impression: Bacterial conjunctivitis Patient Disposition: Home, Self-Care Condition: Stable Instructions: Conjunctivitis (ED) Additional Instructions: Use eye drops as prescribed Continue taking Nneka daily Follow-up with eye doctor if symptoms not improved Patient Language: Albanian Prescriptions: New ofloxacin 0.3 % drops 1 drp EACH EYE QID 7 Days Qty: 5 0RF No Action Dulera 200-5 mcg/actuation HFA aerosol inhaler 2 puff INHALATION BID fexofenadine [Nneka Allergy] 180 mg tablet 180 mg PO DAILY ramipril [Altace] 5 mg capsule 5 mg PO BID furosemide 40 mg tablet 40 mg PO DAILY lamotrigine 200 mg tablet 200 mg PO BID albuterol sulfate 2.5 mg /3 mL (0.083 %) solution for nebulization 2.5 mg inhalation Q6H PRN (Reason: Dyspnea) ondansetron HCl 4 mg tablet 4 mg PO Q8H PRN (Reason: Nausea And Vomiting) theophylline 300 mg tablet extended release 12 hr 300 mg PO BID amlodipine 10 mg tablet 10 mg PO DAILY Patient Comments: QAM omeprazole 20 mg capsule,delayed release(DR/EC) 60 mg PO BID ergocalciferol (vitamin D2) 50,000 unit capsule 50,000 unit PO WEEKLY Rx Instructions: takes on sunday epinephrine 0.3 mg/0.3 mL auto-injector 0.3 mg subcut DIRECTED PRN (Reason: Anaphylaxis) tiotropium bromide [Spiriva with HandiHaler] 18 mcg capsule, w/inhalation device 18 mcg INHALATION DAILY Xarelto 20 mg tablet 20 mg PO DAILY guaifenesin [Mucinex] 600 mg tablet extended release 12hr 600 mg PO BID PRN (Reason: Cough) Ivig See Rx Instructions .ROUTE .COMPLEX Patient Comments: Was going to recieve 08/25/2023 Rx Instructions: 70 G IV INFUSION Q28 DAYS liothyronine 5 mcg Tablet 5 mcg PO BID Rx Instructions: TAKE 1 TAB TWICE DAILY AROUND THE CLOCK cephalexin 500 mg capsule 500 mg PO Q12H Qty: 14 0RF diphenhydramine HCl [Allergy (diphenhydramine)] 25 mg Capsule 50 mg PO Q28D Patient Comments: Taken with IVIG fluticasone propionate [Flovent HFA] 110 mcg/actuation Hfa Aerosol Inhaler 1 puff INHALATION BID levothyroxine [Unithroid] 25 mcg tablet 50 mcg PO QMWF Patient Comments: F SUKHDEV DANIELLE 25MCG Rx Instructions: 50mg M, W, F. 25mg Yonatan Downing, Asuncion Love. folic acid 1 mg tablet 1 mg PO QAM Rx Instructions: With Unthyroid levothyroxine [Unithroid] 25 mcg tablet 25 mcg PO QTUTHSASU acetaminophen [Tylenol] 325 mg Tablet 650 mg PO Q6H PRN (Reason: pain or fever) lansoprazole [Prevacid 24Hr] 15 mg Capsule,Delayed Release(Dr/Ec) 15 mg PO BID hydrocodone-acetaminophen 5-325 mg tablet 1 tablet PO Q6-8H PRN (Reason: pain) Follow-up/Referrals: Sera,DO Theodore [Primary Care Provider] - Time of Disposition: 14:42
== END 2024-12-14 14:48 | disposition home or self-care (01) ==
PROVIDERS: Emergency Provider Nurse Practitioner Family; PCP Student in an Organized Health Care Education/Training Program
DX: H10.9 Unspecified conjunctivitis (principal); D80.4 Selective deficiency of immunoglobulin M [IgM]; M19.90 Unspecified osteoarthritis, unspecified site; M79.7 Fibromyalgia; E28.2 Polycystic ovarian syndrome; K21.9 Gastro-esophageal reflux disease without esophagitis; J44.9 Chronic obstructive pulmonary disease, unspecified; I10 Essential (primary) hypertension; E78.5 Hyperlipidemia, unspecified; I73.00 Raynaud's syndrome without gangrene; M17.0 Bilateral primary osteoarthritis of knee; F32.A Depression, unspecified; Z86.711 Personal history of pulmonary embolism; Z79.01 Long term (current) use of anticoagulants
CPT/HCPCS: 99213; G0463

== ENCOUNTER 2025-06-07 11:04 | Emergency (ER) | payer MEDICARE, OTHER, SELFPAY ==
--- NOTE | ~2025-06-07 | CT_ITS ---
EXAMINATION: CT abdomen pelvis wo con DATE: 06/07/2025 11:54 INDICATION: Right flank pain and hematuria TECHNIQUE: Computed tomography (CT) of the abdomen and pelvis was performed without intravenous contr ast. Automated exposure control and iterative reconstruction technique were employed. The dose-length product was 437.24 mGy-cm. COMPARISON: 03/12/2024 and 08/16/2023 FINDINGS: Discoid atelectasis at the right middle lobe and lingula. Continued evolution of a now mixed solid an d cavitary nodule at the basilar left lower lobe currently measuring 1.7 x 1.2 cm but predominantly c avitary where as it measured slightly smaller at 1.5 x 1.0 cm but entirely solid on CT dated 08/06/23. This would favor a chronic infectious over malignant etiology. Heart size is normal. No pericardial or pleural effusion. Cholecystectomy clips in the gallbladder fossa. Liver, spleen, pancreas and bila teral adrenal glands are normal. Kidneys and ureters are normal with no urolithiasis, hydroureteronep hrosis or perinephric/ureteral stranding. Bladder is normal. Prior likely sigmoidectomy with aspect t o joint the distal aspect of the relatively short sigmoid colon. Bowels are otherwise unremarkable wi th no obstruction. The appendix is not visualized. No pericecal inflammatory change to suggest acute appendicitis. No free intraperitoneal gas or fluid. No pathologically enlarged abdominal or pelvic l ymphadenopathy. Interval repair of a prior right pelvic ventral hernia with removal of a mass associa tamar with an earlier umbilical hernia repair. Moderate lower lumbar spondylosis with grade 1 anterolis thesis L4 on L5. . IMPRESSION: 1. No urolithiasis or acute intra-abdominal/pelvic process. 2. Slight increase in size but decrease in the solid component of a now 1.7 x 1.2 cm mixed solid and cavitary nodule at the left lower lobe. The decrease in the solid component favors a benign etiology likely sequela of chronic infection. Recommend additional 6 month follow-up noncontrast chest CT. Reviewed, dictated and finalized at location A. IMPRESSION: 1. No urolithiasis or acute intra-abdominal/pelvic process. 2. Slight increase in size but decrease in the solid component of a now 1.7 x 1 .2 cm mixed solid and cavitary nodule at the left lower lobe. The decrease in t he solid component favors a benign etiology likely sequela of chronic infection . Recommend additional 6 month follow-up noncontrast chest CT.
--- OUTSIDE RECORDS SUMMARY | 2025-06-07 11:07 | XMS_ITS | Encounter Summary ---
Author Organization [facility] Address [facility] [place] [address] Care Team Providers Care Meat Service Team Member Name Role Phone Theodore Zamora DO Primary Care Provider + Nena Holland RN Unavailable [phone] Bonifacio Easton MD Unavailable Encounter Details Date Type Department Care Team (Late st Contact Info) Description 06/02/2025 Results Follow-Up [facility] Family & Internal Medicine [facility] [address] [place] [address] Theodore Zamora DO [address] [place] [address] URINALYSIS AUTO DIP, URINE BACTERIA CULTURE Social History Tobacco Use Types Packs/Day Years Used Date Smoking Tobacco: Never Passive Smoke Exposure: Past Smokeless Tobacco: Never Alcohol Use Standard Drinks/Week Comments Yes 0 (1 standard drink = 0.6 oz pur e alcohol) occasional Overall Financial Resource Strain (CARDIA) Filippoe r Date Recorded How hard is it [...] place to sleep or slept in a [place] facility (including now)? No 07/30/2023 Comments No Sex and Gender Information Value Date Recorded Sex Assigned at Female 11/26/2024 1:20 PM SEED TECHNICIAN Legal Sex Female 5:37 PM CDT Gender Identity Female 11/26/2024 1:20 PM SEED TECHNICIAN Sexual Orientation Not on file Occupation Industry Job Start Date Job End Date unemployed Not on file Not on file Not on file documented as of this encounter Plan of Treatment Upcoming Encounters Date Type Department Care Team (Late st Contact Info) Description 06/10/2025 1:30 PM CDT Appointment [facility] [address] [place] [address] Theodore Zamora DO [address] [place] [address] 09/15/2025 1:00 PM SEED TECHNICIAN Office Visit [facility] Family & Internal Medicine [facility] [address] [place] [address] Theodore Zamora DO [address] [place] [address] documented as of this encounter Goals Goal Patient Goal Type Associated Problems Recent Progress Patient-Stated? Author Consistently take medications as Prescribed General On track(2024 10:15 AM CDT) No Nena Holland RN Establish Plan for Symptom Monitoring- COPD/Asthma General On track(2024 10:15 AM CDT) Nena Mohan RN Note: COPD/Asthma: Patient will recognize symptoms of COPD/Asthma exacerbation and report to the physician. If severe, patient will seek emergent treatment at [facility] or [facility]. 01/24/23: Patient seen by (Director Family) on 01/10/23 and will f/u on 03/28/23. Reduce Blood Pressure Lifestyle On track(2024 10:15 AM CDT) Nena Mohan RN Note: Patient to monitor blood pressure weekly and report the onset of any changes. Patient will take medications as directed. documented as of this encounter Visit Diagnoses Not on filedocumented in this encounter Additional Health Concerns Assessment Noted Time PHQ-9 Depression Total Score: 0 12/05/19 25 1:07 PM SEED TECHNICIAN documented as of this encounter Care Teams Meat Service Team Member Relationship Specialty Start Date End Date Theodore Zamora DO [address] [place] [id number] PCP - General FAMILY PRACTICE 03/15/22 Nena Holland RN [address] [place], [place] [address] Mechanical Inspector (Ambulatory) REGISTERED NURSE 03/17/22 Bonifacio Easton MD [address] [place], [place] [address] PULMONARY DISEASE 08/29/22 documented as of this encounter
--- OUTSIDE RECORDS SUMMARY | 2025-06-07 11:07 | XMS_ITS | Encounter Summary ---
Author Organization [facility] Address [facility] [place] [address] Care Team Providers Care Forestry Aid Name Role Phone Theodore Zamora DO Primary Care Provider + Nena Holland RN Unavailable [phone] Bonifacio Easton MD Unavailable Encounter Details Date Type Department Care Team (Late st Contact Info) Description 06/21/[address] [facility] Family & Internal Medicine [facility] [address] [place] [address] Theodore Zamora DO [facility] [place] [address] Medication. Social History Tobacco Use [...] Sex Assigned at Female 11/26/2024 1:20 PM SAFETY LEAD Legal Sex Female 5:37 PM CDT Gender Identity Female 11/26/2024 1:20 PM SAFETY LEAD Sexual Orientation Not on file Occupation Industry [...] 3:42 PM CDT We do not have [facility] ID. ENT will order ID if it [...] And if so is there on at [facility]. I need 2 refills on medications. My Hydrocodone. And my Amlodipine. To Man in [place]. Thank you. Tracey Lambert. [phone] documented in this encounter Plan of Treatment Upcoming Encounters Date Type Department Care Team (Late st Contact Info) Description 06/10/2025 1:30 PM CDT Appointment [place] [address] [place] [address] Theodore Zamora DO [address] [place] [address] 09/15/2025 1:00 PM SAFETY LEAD Office Visit [facility] Family & Internal Medicine [facility] [address] [place] [address] Theodore Zamora DO [address] [place] [address] documented as of this encounter Goals Goal Patient Goal Type Associated Problems Recent Progress Patient-Stated? Author Consistently take medications as Prescribed General On track(2024 10:15 AM CDT) Nena Mohan RN Establish Plan for Symptom Monitoring- COPD/Asthma General On track(2024 10:15 AM CDT) Nena Mohan RN Note: COPD/Asthma: Patient will recognize symptoms of COPD/Asthma exacerbation and report to the physician. If severe, patient will seek emergent treatment at [facility] or [facility]. 01/24/23: Patient seen by (Gear Finisher) on 01/10/23 and will f/u on 03/28/23. [...] documented as of this encounter Care Teams Forestry Aid Relationship Specialty Start Date End Date Theodore Zamora DO [address] [place] [id number] PCP - General FAMILY PRACTICE 03/15/22 Nena Holland RN [address] [place], [place] [phone] Collector (Ambulatory) REGISTERED NURSE 03/17/22 Bonifacio Easton MD [address] [place] [address] PULMONARY DISEASE 08/29/22 documented as of this encounter
--- OUTSIDE RECORDS SUMMARY | 2025-06-07 11:07 | XMS_ITS | Encounter Summary ---
Author Organization [facility] Address [facility] [place] [address] Care Team Providers Care Manager Corporate Marketing Name Role Phone Theodore Zamora DO Primary Care Provider + Nena Holland RN Unavailable [phone] Bonifacio Easton MD Unavailable Encounter Details Date Type Department Care Team (Late st Contact Info) Description 04/12/2024 MyChart Message Enc [facility] Family & Internal Medicine [facility] [address] [place] [address] Theodore Zamora DO [address] [place] [address] Base refills Social History Tobacco [...] place to sleep or slept in a long term (including now)? No 07/30/2023 Comments No Sex and Gender Information Value Date Recorded Sex Assigned at Female 11/26/2024 1:20 PM SHELLACKER Legal Sex Female 5:37 PM CDT Gender Identity Female 11/26/2024 1:20 PM SHELLACKER Sexual Orientation Not on file Occupation Industry Job Start Date Job End Date unemployed Not on file Not on file Not on file documented as of this encounter Progress Notes * Theodore Zamora DO - 04/15/2024 8:38 AM CDT We have trouble filling that one sometimes from a cost perspective; I'd recommend having her yarder engineer continue filling that. * Liliana Erickson MA [...] inhaler 2. Xarelto Thank you, Tracey Lambert [phone]. documented in this encounter Plan of Treatment Upcoming Encounters Date Type Department Care Team (Late st Contact Info) Description 06/10/2025 1:30 PM CDT Appointment [facility] [address] [place] [address] [place] [address] [place] [id number] 09/15/2025 1:00 PM SHELLACKER Office Visit [facility] Family & Internal Medicine [facility] [address] [place] [address] Theodore Zamora, DO [address] [place] [address] documented as of this encounter Goals Goal Patient Goal Type Associated Problems Recent Progress Patient-Stated? Author Consistently take medications as Prescribed General On track(2024 10:15 AM CDT) No Nena Holland RN Establish Plan for Symptom Monitoring- COPD/Asthma General On track(2024 10:15 AM CDT) No Nena Holland RN Note: COPD/Asthma: Patient will recognize symptoms of COPD/Asthma exacerbation and report to the physician. If severe, patient will seek emergent treatment at [facility] or [facility]. 01/24/23: Patient seen by (Oiler And Greaser) on 01/10/23 and will f/u on 03/28/23. [...] documented as of this encounter Care Teams Manager Corporate Marketing Relationship Specialty Start Date End Date Theodore Zamora DO [address] [place] [id number] PCP - General FAMILY PRACTICE 03/15/22 Nena Holland RN [address] [place] [address] Lump Receiver (Ambulatory) REGISTERED NURSE 03/17/22 Bonifacio Easton MD [address] [place] [id number] PULMONARY DISEASE 08/29/22 documented as of this encounter
--- OUTSIDE RECORDS SUMMARY | 2025-06-07 11:07 | XMS_ITS | Clinical Summary ---
Author Organization [facility] Address [address] [place] [address] Care Team Providers Care Seat Installer Name Role Phone Theodore Zamora Primary Care Provide r Allergies Active Allergy [...] meds, no artifical airway needed per 3066 (3-03) Iohexol Shortness of breath High 08/22/2012 Latex [...] latent hives Medications Flovent HFA 220 mcg/actuation inhalerIndicati ons:Maintenance Therapy for Asthma Inhale 1 puff every morning 1 Active albuterol 2.5 mg /3 mL (0.083 %) nebulizer solutionIndicat ions:Acute Asthma Attack,Chronic Obstructive Pulmonary Disease Take 3 mL (2.5 mg total) by nebulization 4 (four) times a day as needed for wheezing or shortness of breath 5 Active Mucinex 600 mg 12 hr tablet Take 1 tablet (600 mg total) by mouth as needed for congestion or cough 1 Active theophylline (THEODUR) 300 mg 12 hr tabletIndicatio ns:asthma Take 1 tablet (300 mg total) by mouth 2 (two) times a day 1 Active HYDROcodone-sreekanth taminophen (NORCO) 5-325 mg per tablet Take 1 tablet by mouth every 6 (six) hours as needed for pain 1 Active Xarelto 20 mg tabletIndicatio ns:VTE Prophylaxis Take 1 tablet (20 mg total) by mouth nightly 1 Active omeprazole (PriLOSEC) 40 mg capsuleIndicati ons:Stress Ulcer Prophylaxis Take 1 capsule (40 mg total) by mouth 2 (two) times a day 1 Active fexofenadine (LENA) 180 mg tabletIndicatio ns:Allergic Rhinitis Take 1 tablet (180 mg total) by mouth every morning 1 Active ergocalciferol (VITAMIN D) 50,000 unit capsuleIndicati ons:Vitamin D Deficiency Take 1 capsule (50,000 Units total) by mouth once a week Sunday 1 Active Dulera 200-5 mcg/actuation inhalerIndicati ons:Maintenance Therapy for Asthma Inhale 2 puffs 2 (two) times a day 1 Active immune globulin (GAMMAGARD S-D) infusionIndicat ions:CVID Infuse 1,400 mL (70 g total) into a venous catheter once every four weeks 8 Active EPINEPHrine 0.3 mg/0.3 mL auto-injection syringe Inject 0.3 mL (0.3 mg total) into the muscle as instructed as needed for anaphylaxis 1 Active amLODIPine (NORVASC) 10 mg tabletIndicatio ns:hypertension Take 1 tablet (10 mg total) by mouth every morning 1 Active furosemide (LASIX) 40 mg tabletIndicatio ns:Edema,hypert ension Take 1 tablet (40 mg total) by mouth every morning 1 Active lamoTRIgine (LaMICtal) 200 mg tabletIndicatio ns:anxiety Take 1 tablet (200 mg total) by mouth 2 (two) times a day 1 Active ramipriL (ALTACE) 5 mg capsuleIndicati ons:hypertensio n Take 1 capsule (5 mg total) by mouth 2 (two) times a day 1 Active albuterol HFA (PROVENTIL HFA,VENTOLIN HFA,PROAIR HFA) 90 mcg/actuation inhalerIndicati ons:Acute Asthma Attack,Chronic Obstructive Pulmonary Disease Inhale 2 puffs every 6 (six) hours as needed for wheezing Active fluticasone propionate (FLONASE) 50 mcg/actuation nasal sprayIndication s:Allergic Rhinitis Administer 1 spray into each nostril every morning Active acetaminophen 500 mg capsuleIndicati ons:Pain Take 1 capsule (500 mg total) by mouth every 4 (four) hours as needed (pain) Active olopatadine (PATANOL) 0.1 % ophthalmic solution Administer 1 drop into both eyes as needed for allergies 1 Active clobetasoL (TEMOVATE) 0.05 % cream Apply 1 Application topically as needed (RAsh) Active cyanocobalamin (Vitamin B-12) 1,000 mcg/mL injectionIndica tions:Preventio n of Vitamin B12 Deficiency Inject 1 mL (1,000 mcg total) into the muscle as instructed once a week Sunday 4 Active folic acid (FOLVITE) 1 mg tabletIndicatio ns:Folate Deficiency Take 1 tablet (1 mg total) by 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 4 Active naloxone (NARCAN) 4 mg/actuation spray,non-aeros olIndications:O piate-Induced Respiratory Depression Administer 1 spray into affected nostril(s) as needed for respiratory depression 4 Active tacrolimus (PROTOPIC) 0.1 % ointment Apply 1 Application topically as needed (rash) 4 Active triamcinolone (KENALOG) 0.1 % cream Apply topically 2 (two) times a day 2 Active Spiriva Respimat 2.5 mcg/actuation inhalerIndicati ons:Bronchospas m Prevention with COPD,Maintenanc e Therapy for Asthma Inhale 2 puffs every morning 4 Active famotidine (PEPCID) 40 mg tabletIndicatio ns:Heartburn,He artburn Prevention,lou roesophageal reflux disease Take 1 tablet (40 mg total) by mouth 2 (two) times a day Active potassium chloride ER 10 mEq CR tablet 4 Active diphenhydrAMINE 25 mg capsuleIndicati ons:Allergic Rhinitis Take 1 tablet/capsule (25 mg total) by mouth every 6 (six) hours as needed for itching Active benzonatate (TESSALON) 100 mg capsuleIndicati ons:Cough Take 1 capsule (100 mg total) by mouth 3 (three) times a day as needed for cough Active levothyroxine (SYNTHROID) 50 mcg tablet Take 1 tablet (50 mcg total) by 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 Sun, Wed, and Sun Active miscellaneous medical supply misc Administer 3 L into affected nostril(s) as needed (SOB) Active polyethylene glycol (MIRALAX) 17 gram/dose bulk powderIndicatio ns:constipation Take 17 g by mouth daily 510 g 5 Active liothyronine (CYTOMEL) 5 mcg tabletIndicatio ns:Hypothyroidi sm due to Louise thyroiditis TAKE 1 TABLET(5 MCG) BY MOUTH TWICE DAILY 180 tablet 3 5 Active Unithroid 25 mcg tablet TAKE 2 TABLETS ON SUNDAY, WEDNESDAYS AND FRIDAYS, AND ONE TABLET ON TUESDAYS, THURSDAYS, SATURDAYS AND SUNDAY 120 tablet 1 5 Active Active Problems Problem Noted Date Diagnosed Date History of incisional hernia repair 01/05/2025 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 Assessment & Plan (09/01/2024 11:02 AM CURAM DEVELOPER): Chronic, stable reviewed and discussed patient recent thyroid lab results Recommend to continue current dose of Unithroid and liothyronine Follow-up in 1 year Vitamin B12 deficiency 09/01/2024 Assessment & Plan (09/01/2024 11:05 AM CURAM DEVELOPER): Chronic, Unknown status Patient currently on replacement therapy Recheck levels and further plans based on it Vitamin D deficiency 09/01/2024 Assessment & Plan (09/01/2024 11:05 AM CURAM DEVELOPER): Chronic, Unknown status Patient currently on replacement therapy Check levels today and further plans based on it Thrombocytosis 02/23/2021 Anxiety 06/17/2014 Overview (02/01/2017): Anxiety High risk drug monitoring status 04/22/2014 Overview (02/01/2017): Chronic anticoagulation Benign hypertension 04/22/2014 Overview (02/01/2017): HTN (hypertension), benign History of pulmonary embolism 04/22/2014 Overview (02/01/2017): Healed or old pulmonary embolism Coagulation disorder 04/22/2014 Overview (02/01/2017): Coagulopathy 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 (02/01/2017): Deficiency, immunity, common variable Chronic infection of sinus 10/07/2012 Resolved Problems Problem Noted Date Diagnosed Date Resolved Date Recurrent incisional hernia with incarceration 08/11/2024 01/05/2025 Immunizations Immunization Administration Dates Next Due Influenza, [...] Anxiety disorder Anxiety Arthritis Asthma Emphysema lung Hypercholesteremia Thyroid disease Pneumonia Bronchitis Mononucleosis PONV (postoperative nausea and vomiting) Recurrent incisional hernia with incarceration 1 Family History Medical History Relation Name Comments [...] do you have a drink containing alcohol? 2-4 times a month 02/09/2025 Q2: How many drinks containi ng alcohol do you have on a typical day when you are drinking? 1 or 2 Q3: How often do you have si x or more drinks on one occasion? Patient unable to answer 02/09/2025 Personal Safety Answer Date Recorded Have you ever been in or are you currently in a harmful physical or emotional relationship or is someone making you feel afraid or unsafe? Denies 12/22/2024 Comments No Sex and Gender Information Value Date Recorded Sex Assigned at Not on file Legal Sex Female 9:35 AM CURAM DEVELOPER Gender Identity Female 03/03/2021 1:42 PM CDT Sexual Orientation Not on file Obstetrics History Last Filed Vital Signs Vital Sign Reading Time Taken Comments Blood Pressure 152/92 02/09/2025 10:56 AM CDT Pulse 93 02/09/2025 10:56 AM CDT Temperature 37.5 C (99.5 F) 12/26/2024 4:25 PM CURAM DEVELOPER Respiratory Rate 16 12/26/2024 4:25 PM CURAM DEVELOPER Oxygen Saturation 97% 02/09/2025 10:56 AM CDT Inhaled Oxygen Concentration - - Weight 104.3 kg (230 lb) 12/22/2024 2:00 PM CURAM DEVELOPER Height 170.2 cm (5' 7) 01/05/2025 12:50 PM CDT Body Mass Index 36.02 12/22/2024 2:00 PM CURAM DEVELOPER Plan of Treatment Health Maintenance Due Date Last Done Comments Breast Cancer Screening-Mammogram 1969 Cervical Cancer Screening 1969 Colon Cancer Screening-Colonoscopy 1969 Depression Screening 1969 Hepatitis C Screening 1969 Regular Well Visit/Exam 18-64 1987 Pneumococcal vaccine <65 (4 of 4 - PCV20 or PCV21) 07/16/2023 07/16/2018, 10/29/2015, 10/29/2015, Additional history exists Covid-19 Vaccine (4 - 2023-2 5 season) 2024 06/21/2021, 02/14/2021, 01/09/2021, Additional history exists Influenza Vaccine (#1) 2025 , 08/12/2023, 07/30/2022, Additional history exists DTaP/Tdap/Td Vaccine (3 - Td or Tdap) 06/19/2032 06/19/2022, 10/14/2014 Hepatitis B Screening Completed 03/07/2004 , 09/30/2003, 08/19/2003 Zoster Vaccine Completed 12/07/2021, 08/24/2021 Medical Devices Implanted Type Area Correctional Officer Sergeant Device Identifier Shelf Expiration Date Model / Serial / Lot [employer]/C R Bard Mesh 30x30 Phasix Bard [id number] - Sn/A - [id number] Implanted:Qty : 1 on 12/22/2024 by Davide Catherine MD at [facility] Mesh N/A: Abdomen [employer] R Bard [id number] 06/25/2026 [id number] / N/A / [id number] Insurance MEDICARE [facility] [employer] LIFE MEDICARE [employer] LIFE MEDICARE Advance Directives For more information, please contact: [phone] * Full Code (Latest Code Status on File) Date Activated Date Inactivated Comments 12/22/2024 2:06 PM 12/26/2024 11:19 PM Care Teams Seat Installer Relationship Specialty Start Date End Date Theodore Zamora DO [address] [place] [address] PCP - General Family Medicine 03/20/24
--- OUTSIDE RECORDS SUMMARY | 2025-06-07 11:07 | XMS_ITS | Encounter Summary ---
Author Organization [facility] Address [address] [place] [address] Care Team Providers Care Grader Tender Name Role Phone Gerardo [place] MD Unavailable [phone] Edgar Piper MD Unavailable [phone] Ruby Manzano MD Unavailable Unavailable Stanley Quezada MD Unavailable [phone] Graciela Artis MD Primary Care Provider [phone] Theodore Zamora DO Primary Care Provider + Encounter Details Date Type Department Care Team (Late st Contact Info) Description 04/02/2023 Telephone [facility] - Allergy [address] [place] [address], [place] [address] Stanley Quezada MD [address] [place] [address] OF ALLERGY/[place] [address] Social History Tobacco Use Types Packs/Day Years [...] Date Recorded PHQ2 TOTAL SCORE 0 06/28/2022 Comments No Sex and Gender Information Value Date Recorded Sex Assigned at Not on file Legal Sex Female 7:52 AM BUS INFO CONSULTANT Gender Identity Not on file Sexual Orientation Not on file documented as of this encounter Functional Status * Is person deaf or have serious hearing difficulty? Answer Date of Assessment Author No 01/25/2021 6:45 PM CDT Enedina Harvey RN * Is person blind or have serious difficulty seeing? Answer Date of Assessment Author No 01/25/2021 6:45 PM CDT Enedina Harvey RN * Does person have serious difficulty walking/climbing stairs? Answer Date of Assessment Author No 01/25/2021 6:45 PM CDT Enedina Harvey RN * Does person have difficulty dressing/bathing? Answer Date of Assessment Author No 01/25/2021 6:45 PM CDT Enedina Harvey RN * Does person have difficulty doing errands alone? Answer Date of Assessment Author No 01/25/2021 6:45 PM CDT Enedina Harvey RN documented as of this encounter Mental Status * Does person have difficulty concentrating/remembering/making decisions? Answer Entry Date Author No 01/25/2021 6:45 PM CDT Enedina Harvey RN documented in this encounter Miscellaneous Notes * Telephone Encounter - Stanley Quezada MD - 04/02/2023 5:24 PM CDT 04/02/2023 Received message taken in clinic to call back Dr. Lazar. Called [phone], left VM message at 5.30 PM. Subsequently spoke to him, discussed timing of IVIG vs surgical procedure. Plan to give dose of IVIG within days of surgical procedure. INFO CONSULTANT documented in this encounter Plan of Treatment Upcoming Encounters Date Type Department Care Team (Latest Contact Info) Description 06/15/2025 9:30 AM CDT Office Visit [facility] - Pulmonology [address] [place] [address], [facility] [place] [phone] Bonifacio Easton MD [address] [place] [address] 2L DIV OF PULMONARY/[place] [address] 07/02/2025 7:20 AM CDT Hospital Encounter [facility] [address] [place] [address] Gerardo Angeles MD [address] [place] [address] 2L [place] [address] Surgery General 07/02/2025 7:20 AM CDT - 07/02/2025 9:40 AM CDT Surgery [facility] [address] [place] [phone] Gerardo Angeles MD [address] [place] [address] [place] [address] MAXILLARY ANTROSTOMY, FRONTAL SINUSOTOMY, TOTAL ETHMOIDECTOMY, SPHENOIDOTOMY, Bilateral middle ear polyp resection with bilateral tympanolysis 12/04/2025 12:00 PM BUS INFO CONSULTANT Office Visit [facility] - Allergy [address] [place] [address], [place] [phone] Stanley Quezada MD [address] [place] [address] 2L DIV OF ALLERGY/[place] [address] Scheduled Procedures Name Priority Associated Diagnoses Date/Ti pr ENDOSCOPIC SINUS/NASAL SURGERY [facility] (HCC) Nasal polyps Chronic pansinusitis 07/02/2025 7:20 AM CDT documented as of this encounter Goals Goal [...] on filedocumented in this encounter Care Teams Grader Tender Relationship Specialty Start Date End Date Graciela Artis MD [address] [place] [phone] PCP - General 07/04/22 04/10/23 Theodore Zamora DO [address] [place] [address] PCP - General Family Medicine Geriatric Medicine 04/11/23 Gerardo Angeles MD Otolaryngology 07/16/19 Edgar Piper MD Otolaryngology 07/16/19 Ruby Manzano MD Dermatology 07/16/19 Stanley Quezada MD [address] [place] [address] Allergy and Immunology 07/16/19 documented as of this encounter
--- OUTSIDE RECORDS SUMMARY | 2025-06-07 11:07 | XMS_ITS | Encounter Summary ---
Author Organization [facility] Address [address] [place] [address] Care Team Providers Care Direct Casting Operator Name Role Phone Sera Theodore Jesus DO Primary Care Provider + Nena Holland RN Unavailable [phone] Bonifacio Easton MD Unavailable Reason for Visit * Reason Comments Generic Orders (SCAN) Encounter Details Date Type Department Care Team (Late st Contact Info) Description 04/30/2025 Scan HEALTH INFO SRVCS Scanned, Doc Med Group Generic Orders (SCAN) Social History Tobacco Use Types Packs/Day Years [...] place to sleep or slept in a retirement (including now)? No 07/30/2023 Comments No Sex and Gender Information Value Date Recorded Sex Assigned at Female 11/26/2024 1:20 PM SAP PORTAL DEVELOPER Legal Sex Female 5:37 PM CDT Gender Identity Female 11/26/2024 1:20 PM SAP PORTAL DEVELOPER Sexual Orientation Not on file Occupation Industry Job Start Date Job End Date unemployed Not on file Not on file Not on file documented as of this encounter Plan of Treatment Upcoming Encounters Date Type Department Care Team (Late st Contact Info) Description 06/10/2025 1:30 PM CDT Appointment [facility] [address] [place] [address] Theodore Zamora DO [address] [place] [address] 09/15/2025 1:00 PM SAP PORTAL DEVELOPER Office Visit [facility] Family & Internal Medicine [facility] [address] [place] [address] Theodore Zamora DO [address] [place] [address] documented as of this encounter Goals Goal [...] care or ER. 01/24/23: Patient seen by (Truck Body Repairer) on 01/10/23 and will f/u on 03/28/23. Reduce Blood Pressure Lifestyle On track(2024 10:15 AM CDT) Nena Mohan RN Note: Patient to monitor blood pressure weekly and report the onset of any changes. Patient will take medications as directed. documented as of this encounter Procedures Procedure Name Priority Date/Time Associated Diagnosis Comments SPIROMETRY GENERIC (SCAN ORDER) 04/30/2025 documented in this encounter Results * SPIROMETRY GENERIC (SCAN ORDER) (04/30/2025) 04/30/2025 us Doc Med Group Scanned SCANNING Final Resu lt documented in this encounter Visit Diagnoses Not on filedocumented in this encounter Additional Health Concerns Assessment Noted Time PHQ-9 Depression Total Score: 0 12/05/19 25 1:07 PM SAP PORTAL DEVELOPER documented as of this encounter Care Teams Direct Casting Operator Relationship Specialty Start Date End Date Theodore Zamora DO [address] [place] [address] PCP - General FAMILY PRACTICE 03/15/22 Nena Holland RN [address] [place] [address] Fire Investigation Lieutenant (Ambulatory) REGISTERED NURSE 03/17/22 Bonifacio Easton MD [facility] [place] [address] PULMONARY DISEASE 08/29/22 documented as of this encounter
--- OUTSIDE RECORDS SUMMARY | 2025-06-07 11:07 | XMS_ITS | Encounter Summary ---
Author Organization [facility] Address [address] [place] [address] Care Team Providers Care Chronometer Tester Name Role Phone Gerardo [place] MD Unavailable [phone] Edgar Piper MD Unavailable [phone] Ruby Manzano MD Unavailable Unavailable Stanley Quezada MD Unavailable [phone] Theodore Zamora DO Primary Care Provider + Reason for Visit * Reason Onset Date Comments MEDICATION REFILL 04/28/2024 Encounter Details Date Type Department Care Team (Late st Contact Info) Description 04/28/2024 Refill [facility] - Pulmonology [address], [address] [place] [address] Bonifacio Easton MD [address] [facility] 2L DIV OF PULMONARY/[place] [address] MEDICATION REFILL Social History Tobacco [...] Recorded Patient Health Questionnaire-2 Score 0 02/15/2024 Comments No Sex and Gender Information Value Date Recorded Sex Assigned at Not on file Legal Sex Female 7:52 AM INSURANCE ACCOUNT EXECUTIVE Gender Identity Not on file Sexual Orientation [...] PM CDT Refill Request Tracey Lambert ASIF: 11/26/23Aug scheduled: 05/26/2024 LRF: Qty Disp: # of [...] Description 06/15/2025 9:30 AM CDT Office Visit [facility] - Pulmonology [address] [place] [address], [facility] [place] [address] Bonifacio Easton MD [address] [place] [address] OF PULMONARY/[place] [address] 07/02/2025 7:20 AM CDT Hospital Encounter [facility] [address] [place] [address] Gerardo [place] MD [address] [place] [address] [place] [address] Surgery General 07/02/2025 7:20 AM CDT - 07/02/2025 9:40 AM CDT Surgery [facility] [address] [place] [address] Gerardo [place] MD [address] [place] [address] [place] [address] MAXILLARY ANTROSTOMY, FRONTAL SINUSOTOMY, TOTAL ETHMOIDECTOMY, SPHENOIDOTOMY, Bilateral middle ear polyp resection with bilateral tympanolysis 12/04/2025 12:00 PM INSURANCE ACCOUNT EXECUTIVE Office Visit [facility] - Allergy [address] [place] [address], [place] [address] Stanley Quezada MD [address] [place] [address] 2L DIV OF ALLERGY/[place] [address] Scheduled Procedures Name Priority Associated Diagnoses Date/Ti vt ENDOSCOPIC SINUS/NASAL SURGERY [facility] (HCC) Nasal [...] obstructive pulmonary disease, unspecified COPD type (HCC) [facility] (HCC) Extrinsic asthma, unspecified Nasal polyps Chronic pansinusitis Other chronic sinusitis documented in this encounter Care Teams Chronometer Tester Relationship Specialty Start Date End Date Theodore Zamora DO [address] [place] [address] PCP - General Family Medicine Geriatric Medicine 04/11/23 Gerardo [place] MD Otolaryngology 07/16/19 Edgar Piper MD Otolaryngology 07/16/19 Ruby Manzano MD Dermatology 07/16/19 Stanley Quezada MD [facility] [place] [address] Allergy and Immunology 07/16/19 documented as of this encounter
--- OUTSIDE RECORDS SUMMARY | 2025-06-07 11:07 | XMS_ITS | Encounter Summary ---
Author Organization [facility] Address [address] [place] [address] Care Team Providers Care Security Operations Analyst Name Role Phone Sera Theodore Jesus DO Primary Care Provider + Nena Holland RN Unavailable [phone] Bonifaico Easton MD Unavailable Reason for Visit * Reason Comments PFT (SCAN) Encounter Details Date Type Department Care Team (Latest Contact Info) Description 05/28/2025 Scan HEALTH INFO SRVCS Scanned, Doc Med Group PFT (SCAN) Social History Tobacco Use Types Packs/Day [...] place to sleep or slept in a correction (including now)? No 07/30/2023 Comments No Sex and Gender Information Value Date Recorded Sex Assigned at Female 11/26/2024 1:20 PM CUSTOMER RELATIONS CONSULTANT Legal Sex Female 5:37 PM CDT Gender Identity Female 11/26/2024 1:20 PM CUSTOMER RELATIONS CONSULTANT Sexual Orientation Not on file Occupation Industry Job Start Date Job End Date unemployed Not on file Not on file Not on file documented as of this encounter Plan of Treatment Upcoming Encounters Date Type Department Care Team (Late st Contact Info) Description 06/10/2025 1:30 PM CDT Appointment [facility] [address] [place] [address] Theodore Zamora DO [address] [place] [address] 09/15/2025 1:00 PM CUSTOMER RELATIONS CONSULTANT Office Visit [facility] Medical [facility] Family & Internal Medicine [facility] [address] [place] [address] Theodore Zamora DO [address] [place] [address] documented as of this encounter Goals Goal [...] care or ER. 01/24/23: Patient seen by (Homebound Teacher) on 01/10/23 and will f/u on 03/28/23. Reduce Blood Pressure Lifestyle On track(2024 10:15 AM CDT) Nena Mohan RN Note: Patient to monitor blood pressure weekly and report the onset of any changes. Patient will take medications as directed. documented as of this encounter Procedures Procedure Name Priority Date/Time Associated Diagnosis Comments PFT GENERIC (SCAN ORDER) 05/28/2025 documented in this encounter Results * PFT GENERIC (SCAN ORDER) (05/28/2025) 05/28/2025 us Doc Med Group Scanned SCANNING Final Resu lt documented in this encounter Visit Diagnoses Not on filedocumented in this encounter Additional Health Concerns Assessment Noted Time PHQ-9 Depression Total Score: 0 12/05/19 25 1:07 PM CUSTOMER RELATIONS CONSULTANT documented as of this encounter Care Teams Security Operations Analyst Relationship Specialty Start Date End Date Theodore Zamora DO [address] [place] [address] PCP - General FAMILY PRACTICE 03/15/22 Nena Holland RN [address] [place] [address] Gas Combustion Engineer (Ambulatory) REGISTERED NURSE 03/17/22 Bonifacio Easton MD [address] [place] [address] PULMONARY DISEASE 08/29/22 documented as of this encounter
--- OUTSIDE RECORDS SUMMARY | 2025-06-07 11:07 | XMS_ITS | Continuity of Care Document ---
Author Name [facility] Organization [facility] Care Team Providers Care Electronics Department Manager Name Role Phone [facility] Unavailable Unavailable Problems Combined list of problems from Department of Defense and Veterans Affairs facilities. It does not include entries that were removed or entered in error. Problem Status Onset Date Problem Type Date of Resolution Comments Source visit for: occupational health / fitness exam Active Condition DoD visit for: administrative purpose Active Condition [facility] RAYNAUD'S DISEASE Active Condition DoD HYPOGAMMAGLOBULINEMIA Active Condition [facility] ASTHMA INTRINSIC Active Condition DoD SELECTIVE IgM DEFICIENCY Active Condition [facility] POLYCYSTIC OVARIAN SYNDROME Active Condition [facility] pain during urination (dysuria) Inactive Condition [facility] ASTHMA Active Condition DoD Medications Combined list of outpatient medications from Department of Defense and Veterans Affairs facilities.Medications provided include 1) outpatient medications from the last 15 months, and 2) patient-reported medications. Medication Details Route Status Patient Instructions Prescription Expires Prescription Number Last Dispense Date Ordering Provider Order Date Order Qty Source AMLODIPINE BESYLATE (amlodipine besylate), 10 MG, TABLET, ORAL, LUPIN PHARMACEU, 1000 ea. BOTTLE Cancele d [id number] : 2023 0 Pharmac y Data Transac tion Service Facilit y benzonatate 100 mg oral capsule TAKE ONE CAPSULE THREE TIMES DAILY DIRECTED , # 270 EA, 3 total refill(s ), Acute Complet ed 01/09/20242023 270.0 Ambulat ory Pharmac y CEPHALEXIN (CEPHALEXIN MONOHYDRATE ), 500MG, CAPSULE, ORAL, AUROBINDO PHARM, 500 ea. BOTTLE Active [id number] 4 2023 14 Pharmac y Data Transac tion Service Facilit y CLOBETASOL PROPIONATE (clobetasol propionate) , 0.05 %, CREAM (G), TOPICAL, ENCUBE ETHICALS, 60 g TUBE Cancele d [id number] : 2023 0 Pharmac y Data Transac tion Service Facilit y CLOBETASOL PROPIONATE (clobetasol propionate) , 0.05 %, OINT. (G), TOPICAL, ENCUBE ETHICALS, 30 g TUBE Active [id number] 4 2023 60 Pharmac y Data Transac tion Service Facilit y FOLIC ACID (folic acid), 1 MG, TABLET, ORAL, CHARTWELL RX LL, 90 ea. BOTTLE Cancele d [id number] : 2023 0 Pharmac y Data Transac tion Service Facilit y guaiFENesin 600 mg oral tablet, extended release TAKE ONE TABLET BY MOUTH EVERY TWELVE HOURS NEEDED FOR COUGH, # 90 EA, 3 total refill(s ), Acute Complet ed 01/09/20242023 90.0 Ambulat ory Pharmac y HYDROCODONE -ACETAMINOP HEN (HYDROCODON E/ACETAMINO PHEN), 5MG-325MG, TABLET, ORAL, MALLINCKROD T PH, 500 ea. BOTTLE Active [id number] 2023 60 Pharmac y Data Transac tion Service Facilit y HYDROCODONE -ACETAMINOP HEN (HYDROCODON E/ACETAMINO PHEN), 5MG-325MG, TABLET, ORAL, MALLINCKROD T PH, 500 ea. BOTTLE Active [id number] 2023 60 Pharmac y Data Transac tion Service Facilit y Lamotrigine (Lamotrigin e), 200mg, Tablet, Oral, Aurobindo Pharm, 60 Ea. Bottle Active [id number] 2023 180 Pharmac y Data Transac tion Service Facilit y LIOTHYRONIN E SODIUM (liothyroni ne sodium), 5 MCG, TABLET, ORAL, SIGMAPHARM LABO, 90 ea. BOTTLE Active [id number] 4 2023 180 Pharmac y Data Transac tion Service Facilit y OLOPATADINE HCL (olopatadin e HCl), 0.1 %, DROPS, OPHTHALMIC, SOMERSET THERAP, 5 ml DROP BTL Cancele d [id number] : 2023 0 Pharmac y Data Transac tion Service Facilit y OLOPATADINE HCL (olopatadin e HCl), 0.1 %, DROPS, OPHTHALMIC, SOMERSET THERAP, 5 ml DROP BTL Cancele d [id number] : 2023 0 Pharmac y Data Transac tion Service Facilit y rivaroxaban 20 mg tablet = 1 tab(s), Oral, Daily, with supper, # 90 EA, 1 total refill(s ), Soft Stop Oral (given by mouth) Ordered 5 2024 90.0 Ambulat ory Pharmac y Spiriva Respimat 2.5 mcg inhaler (4g) See Instruct ions, Inhale, # 4 g, 11 total refill(s ), Hard Stop Inhala tion (breat he in) Complet ed 04/17/2024 4 2023 4.0 Ambulat ory Pharmac y TACROLIMUS (tacrolimus ), 0.1 %, OINT. (G), TOPICAL, [employer] PHARMA, 30 g TUBE Active [id number] 4 2023 30 Pharmac y Data Transac tion Service Facilit y THEOPHYLLIN E ER (theophylli ne anhydrous), 300 MG, TAB ER 12H, ORAL, TEVA PHARM, 100 ea. BOTTLE Cancele d [id number] : 2023 0 Pharmac y Data Transac tion Service Facilit y THEOPHYLLIN E ER (theophylli ne anhydrous), 300 MG, TAB ER 12H, ORAL, TEVA PHARM, 100 ea. BOTTLE Active [id number] 4 2023 180 Pharmac y Data Transac tion Service Facilit y tiotropium 18 mcg inhalation capsule INHALE CONTENTS OF ONE CAPSULE VIA HANDIHAL ER ONCE DAILY DIRECTED , # 30 EA, 4 total refill(s ), Acute Complet ed 08/14/20232022 30.0 Ambulat ory Pharmac y tiotropium 2.5 mcg inhaler (4g, 60 inh) See Instruct ions, # 4 g, 11 total refill(s ), Hard Stop Complet ed 04/30/2025 5 2024 4.0 Ambulat ory Pharmac y UNITHROID (LEVOTHYROX INE SODIUM), 25 MCG, TABLET, ORAL, LUCILA LABORATO, 100 ea. BOTTLE Active [id number] 4 2023 120 Pharmac y Data Transac tion Service Facilit y XARELTO (RIVAROXABA N), 20 MG, TABLET, ORAL, RUDDY PHARM., 30 ea. BOTTLE Active [id number] 4 2023 30 Pharmac y Data Transac tion Service Facilit y Xarelto 20 mg tablet See Instruct ions, # 90 EA, 1 total refill(s ), Hard Stop Complet ed 05/21/2025 4 2024 90.0 Ambulat ory Pharmac y Xarelto 20 mg tablet See Instruct ions, # 90 EA, 1 total refill(s ), Hard Stop Complet ed 04/02/2024 3 2023 90.0 Ambulat ory Pharmac y Xarelto 20 mg tablet See Instruct ions, # 90 EA, 1 total refill(s ), Hard Stop Discont inued 04/14/2024 4 2023 90.0 Ambulat ory Pharmac y Allergies, Adverse Reactions, Alerts Combined list of allergies from Department of Defense and Veterans Affairs facilities. It does not include entries that were removed or entered in error. Substance Category Reaction Severity Reaction type Status Date Reported Comments Source ASPIRIN (ASPIRIN) Drug allergy (disorder ) Unknown active [address] [place] [address] Dre B ([facility] aspirin Drug allergy Anaphylaxis Severe Active 4 ANAPHYLAXIS (PER 3066 03-18-03) Ambulator y Pharmacy IBUPROFEN (IBUPROFEN ) Drug allergy (disorder ) Unknown active [address] [place] [address] Dre [facility] ibuprofen Drug allergy Unknown Unknown Active 4 per 3066 (3-6-03) Ambulator y Pharmacy NSAID Drug allergy (disorder ) Unknown active [address] [place] [address] Dre [facility] NSAIDs Drug allergy Anaphylaxis Severe Active ASA Ambulato r y Pharmacy OTHER Drug allergy (disorder ) Unknown active [address] [place], [place] [address]B ([facility]) Immunizations Combined list of available immunizations from the Department of Defense and Veterans Affairs facilities. Immunization Series Date Given Administered By Site Reaction Lot Number CVX Code Drug Funding Analyst Status Comments Source Tdap 2021 ALUL, () Not Given Tdap DoD COVID-19, mRNA, LNP-S, PF, 30 mcg/0.3 mL dose, abdirahman-sucrose 2021 TURABELIDZE,G EORGE [employer] [place] (PFR) Not Given COVID-19, mRNA, LNP-S, PF, 30 mcg/0.3 mL dose, abdirahman-sucr ose DoD zoster recombinant 2021 JOÃO MCCRACKEN () Not Given zoster recombina nt DoD zoster recombinant 2020 ALUL, () Not Given zoster recombina nt DoD Influenza, injectable, MDCK, preservative free, quadrivalent 2020 MACIEL, () Not Given Influenza , injectabl e, MDCK, preservat mario free, quadrival ent DoD COVID-19, mRNA, LNP-S, PF, 30 mcg/0.3 mL dose 2020 MAGNO, [employer] [place] (PFR) Not Given COVID-19, mRNA, LNP-S, PF, 30 mcg/0.3 mL dose DoD COVID-19, mRNA, LNP-S, PF, 100 mcg or 50 mcg dose 2020 MACIEL [facility] [employer] (MOD) Not Given COVID-19, mRNA, LNP-S, PF, 100 mcg or 50 mcg dose DoD Influenza, injectable, MDCK, preservative free, quadrivalent 2019 ALUL, () Not Given Influenza , injectabl e, MDCK, preservat mario free, quadrival ent DoD influenza virus vaccine, live 2009 [id number] 111 [employer] [place] ed influenza virus vaccine, live 07/19/10 Given Ambulat ory Pharmac y influenza virus vaccine, live, attenuated, for intranasal use 1 2009 Unknown, Provider [id number] 111 [employer] (MED) complet ed influenza virus vaccine, live, attenuate d, for intranasa l use DoD Novel influenza-H1N 1-09, injectable 2009 zzLef t Arm [id number] 1 127 Novartis [employer] complet ed Novel influenza -[id number], injectabl e 11/01/09 Given Ambulat ory Pharmac y Novel influenza-H1N 1-09, injectable 1 2009 Unknown, Provider [id number] 1 127 Novartis [employer] [place]. (NOV) complet ed Novel influenza -[id number], injectabl e DoD influenza virus vaccine,split 2008 [...] toxoid) DoD hepatitis A-hepatitis B vaccine 2003 zChantel Arm [id number] 6 104 GlaxoSmithKli ne complet ed hepatitis A-hepatit is B vaccine 03/07/04 Given Ambulat ory Pharmac y hepatitis A and hepatitis B vaccine 3 2003 Unknown, Provider [id number] 6 104 SmithKline (SKB) complet ed hepatitis A and hepatitis B vaccine DoD hepatitis A-hepatitis B vaccine 2002 zzRig Arm [id number] 6 104 GlaxoSmithKli ne complet ed hepatitis A-hepatit is B vaccine 09/30/03 Given Ambulat ory Pharmac y hepatitis A and hepatitis B vaccine 2 2002 Unknown, Provider [id number] 6 104 SmithKline (SKB) complet ed hepatitis A and hepatitis B vaccine DoD influenza virus vaccine, whole virus 2002 zzLef t Arm [id number] 16 sanofi pasteur complet ed influenza virus vaccine, whole virus 08/19/03 Given Ambulat ory Pharmac y hepatitis A-hepatitis B vaccine 2002 zzLef t Arm [id number] 6 104 GlaxoSmithKli ne complet ed hepatitis A-hepatit is B vaccine 08/19/03 Given Ambulat ory Pharmac y influenza virus vaccine, whole virus 1 2002 Unknown, Provider [id number] 16 Sanofi Pasteur ([facility]) complet ed influenza virus vaccine, whole virus DoD hepatitis A and hepatitis B vaccine 1 2002 Unknown, Provider [id number] 6 104 Smithine (SKB) complet ed hepatitis A and hepatitis [...] vaccine, whole virus 2001 zzLef t Arm [id number] 16 sanofi pasteur complet ed influenza virus vaccine, whole virus 10/03/02 Given Ambulat ory Pharmac y influenza virus vaccine, whole virus 1 2001 Unknown, Provider [id number] 16 Sanofi Pasteur ([facility]) complet ed influenza virus vaccine, whole virus DoD tuberculin purified protein derivative 2001 zef t Arm [id number] 96 sanofi pasteur complet ed Patient Tolerance : Negative Ambulat ory Pharmac y tuberculin skin test; purified protein derivative solution, intradermal 1 2001 Unknown, Provider [id number] 96 Sanofi Pasteur ([facility]) complet ed tuberculi n skin test; purified protein derivativ e solution, intraderm al DoD tuberculin purified protein derivative 2000 [id number] 96 [facility] complet ed tuberculi n purified protein derivativ e 07/02/01 Given Ambulat ory Pharmac y tuberculin purified protein derivative 1998 [id number] 96 [facility] complet ed tuberculi n purified protein derivativ e 07/25/99 Given Ambulat ory Pharmac y tetanus-dipht h toxoids (Td) adult/adol 1998 [id number] 09 [facility] complet ed tetanus-d iphth toxoids (Td) adult/ado l 07/25/99 Given Ambulat ory Pharmac y tetanus and diphtheria toxoids, adsorbed, preservative free, for adult use (2 Lf of tetanus toxoid and 2 Lf of diphtheria toxoid) 1 1998 Unknown, Provider [id number] 09 Jimmy (CON) complet ed tetanus and diphtheri a [...] ADM Date DC Date Status Disposition Source [address] [place] [address] Dre [facility] ) OUTPATIENT [id number] follow- up JERRICA MITCHELL 04/27 Released w/o Limitations [facility] Dre [facility]S cott Flight Medicin e Tm) [address] [place] [address] Dre [facility] ) TELE CONSULT [id number] basin tender consult JERRICA MITCHELL 05/[address] [place] [address] Group Dre [facility]S [address] Flight Medicin e Tm) [address] [place] [address] Dre [facility]All ergy Resource Sharing) TELE CONSULT [id number] ANTONIO COFFMAN 07/[address] [place] [address] Dre [facility]A llergy Resourc e Sharing ) [address] [place] [address] Dre [facility]All ergy Resource Sharing) TELE CONSULT [id number] ANTONIO COFFMAN 07/06 [facility] [employer] Dre [facility]A llergy Resourc e Sharing ) [address] [place] [address] Dre [facility]All ergy Resource Sharing) TELE CONSULT [id number] Lab results ANTONIO COFMFAN 07/11 [facility] Dre [facility] ([facility])(A llergy Resourc e Sharing ) [address] [place] [address] Dre [facility]All ergy Resource Sharing) TELE CONSULT [id number] lab results [phone] ANTONIO COFFMAN 07/25 [facility] Dre [facility] ([facility])(A llergy Resourc e Sharing ) [address] [place] [address] Dre [facility]) TELE CONSULT [id number] elias bautista. ELIO HERRON 07/[address] [place] [address] Group Dre [facility]A llergy) [address] [place] [address] Dre [facility])(Fam polo Practice Non-GME FHI1) OUTPATIENT [id number] naf physica l/ph#[phone] JIM DURÁN 07/09 Released w/o Limitations [address] [place] [address] Dre [facility]F amily Practic e Non-GME FHI1) [address] [place] [address] Dre [facility])([facility] ) TELE CONSULT [id number] NAF Physica l - ALIREZA Byrne 06/02 Referred for Appointment [address] [place] [address] Dre [facility] Flight Medicin e Tm) [address] [place] [address] Dre [facility])([facility] ) OUTPATIENT [id number] NAF Physica l OCHOA KIRAN 06/23 Released w/o Limitations [address] [place] [address] Dre [facility])(S [facility] Flight Medicin e Tm) Procedures Combined list of: 1) Procedures from Department of Veterans Affairs facilities [facility], not all VA non-surgical procedures are included; 2) All procedures from the Department of Defense facilities. Procedure Procedure Type Code Date Perfomer Comments Sourc e No data available for this section Ambulatory Pharmacy Extensive Color Vision Testing Extensive Color Vision Testing 93589 0 QIANA, OCHOA Oro DoD Screening Test Of Visual Acuity, Quantitative, Bilateral Screening Test Of Visual Acuity, Quantitative, Bilateral 97632 0 QIANA, OCHOA E DoD Threshold Audiogram (Pure Tone) Threshold Audiogram (Pure Tone) 70741 0 QIANA, OCHOA Oro DoD BRONCHODILATION RESPONSIVENESS, [place] [address], PRE- AND POST-BRONCHODILATOR ADMINISTRATION 1 DoD INTRACUTANEOUS [...] LOOP 3 DoD BRONCHODILATION RESPONSIVENESS, [place] [address], PRE- AND POST-BRONCHODILATOR ADMINISTRATION 3 DoD IPRATROPIUM [...] Plan No data available for this section 06/07/2025 Ambulatory Pharmacy Functional Status Combined list of recent functional and cognitive assessments recorded at Department of Defense and Veterans Affairs (VA).VA Functional Bronson Measurement (FIM) Scale: 1 = Total Assistance (Subject = 0% +), 2 = Maximal Assistance (Subject = 25% +), 3 = Moderate Assistance (Subject = 50% +), 4 = Minimal Assistance (Subject = 75% +), 5 = Supervision, 6 = Modified Bronson (Device), 7 = Complete Bronson (Timely, Safely). Assessment Date/Time Source Assessment Type Assessment Skill Assessment Score Assessment Details No data available for this section
--- OUTSIDE RECORDS SUMMARY | 2025-06-07 11:07 | XMS_ITS | Encounter Summary ---
Author Organization [facility] Address [address] [facility] [place] [address] Care Team Providers Care Broadcast Meteorologist Name Role Phone Gerardo Angeles MD Unavailable [phone] Edgar Piper MD Unavailable [phone] Ruby Manzano MD Unavailable Unavailable Stanley Quezada MD Unavailable Theodore Zamora DO Primary Care Provider + Encounter Details Date Type Department Care Team (Late st Contact Info) Description 03/07/2024 Telephone [facility] - Allergy [address] [facility], [place] [address] Renate Lynn MD [address] [place] [address] Social History Tobacco Use Types [...] on file Legal Sex Female 7:52 AM PAINTER SET Gender Identity Not on file Sexual Orientation [...] Description 06/15/2025 9:30 AM CDT Office Visit [facility] - Pulmonology [address] [facility], [place] [phone] Bonifacio Easton MD [address] [place] [address] [address] DIV OF PULMONARY/[place] [phone] 07/02/2025 7:20 AM CDT Hospital Encounter [facility] [address] [place] [phone] Gerardo Angeles MD [address] [place] [address] DE[place] [address] Surgery General 07/02/2025 7:20 AM CDT - 07/02/2025 9:40 AM CDT Surgery [facility] [address] [place] [address] Gerardo Angeles MD [address] [place] [address] DE[place] [address] MAXILLARY ANTROSTOMY, FRONTAL SINUSOTOMY, TOTAL ETHMOIDECTOMY, SPHENOIDOTOMY, Bilateral middle ear polyp resection with bilateral tympanolysis 12/04/2025 12:00 PM PAINTER SET Office Visit [facility] - Allergy [address] [place] [address], [place] [address] Stanley Quezada MD [address] [place] [address] DIV [place] [address] Scheduled Procedures Name Priority Associated Diagnoses Date/Ti me ENDOSCOPIC SINUS/NASAL SURGERY [facility] (HCC) Nasal polyps Chronic pansinusitis 07/02/2025 7:20 AM CDT documented as of this encounter Goals Goal Patient Goal Type Associated Problems Recent Progress Patient-Stated? Author Medication Management General On track( 020 8:56 AM CDT) Ac Rodriguez, DUSTIN Note: Expected end date: ongoing Interventions: Take all medications as prescribed Let your doctor know right away about any changes in your medications Make sure to request a refill of your medication at least one week prior to your last dose documented as of this encounter Visit Diagnoses Not on filedocumented in this encounter Care Teams Broadcast Meteorologist Relationship Specialty Start Date End Date Theodore Zamora DO [address] [place] [address] PCP - General Family Medicine Geriatric Medicine 04/11/23 Gerardo Angeles MD Otolaryngology 07/16/19 Edgar Piper MD Otolaryngology 07/16/19 Ruby Manzano MD Dermatology 07/16/19 [place] [address] [place] [address] Allergy and Immunology 07/16/19 documented as of this encounter
--- OUTSIDE RECORDS SUMMARY | 2025-06-07 11:07 | XMS_ITS | Encounter Summary ---
Author Organization [facility] Address [address] [place] [address] Care Team Providers Care Cooking Instructor Name Role Phone Theodore Zamora DO Primary Care Provider + Nena Holland RN Unavailable [phone] Bonifacio Easton MD Unavailable Encounter Details Date Type Department Care Team (Late st Contact Info) Description 03/03/2023 MyChart Message Enc [facility] Family & Internal Medicine [facility] [address] [place] [address] Theodore Zamora DO [address] [place] [address] [facility] Social History Tobacco Use Types Packs/Day Years Used Date Smoking Tobacco: Never Passive Smoke Exposure: Past Smokeless Tobacco: Never Alcohol Use Standard Drinks/Week Comments Yes 0 (1 standard drink = 0.6 oz pur e alcohol) occ PHQ-2 Answer Date Recorded Patient Health Questionnaire-2 Score 0 11/23/2022 Comments No Sex and Gender Information Value Date Recorded Sex Assigned at Female 11/26/2024 1:20 PM SAMPLE PULLER Legal Sex Female 5:37 PM CDT Gender Identity Female 11/26/2024 1:20 PM SAMPLE PULLER Sexual Orientation Not on file Occupation Industry [...] Info) Description 06/10/2025 1:[address] [place] [address] [place] [address] Theodore Zamora, DO [address] [place] [address] 09/15/2025 1:00 PM SAMPLE PULLER Office Visit [facility] Family & Internal Medicine - [place] [address] [place] [phone] Theodore Zamora, DO [address] [place] [address] documented as of this encounter Goals Goal Patient Goal Type Associated Problems Recent Progress Patient-Stated? Author Consistently take medications as Prescribed General On track(2024 10:15 AM CDT) No Nena Holland, DUSTIN Establish Plan for Symptom Monitoring- COPD/Asthma General On track(2024 10:15 AM CDT) Nena Mohan, RN Note: COPD/Asthma: Patient will recognize symptoms of COPD/Asthma exacerbation and report to the physician. If severe, patient will seek emergent treatment at [facility] or ER. 01/24/23: Patient seen by (Crayon Sorting Machine Feeder) on 01/10/23 and will f/u on 03/28/23. Reduce Blood Pressure Lifestyle On track(2024 10:15 AM CDT) No Nena Holland, RN Note: Patient to monitor blood pressure weekly and report the onset of any changes. Patient will take medications as directed. documented as of this encounter Visit Diagnoses Not on filedocumented in this encounter Additional Health Concerns Assessment Noted Time PHQ-9 Depression Total Score: 0 04/21/20 22 8:42 AM CDT documented as of this encounter Care Teams Cooking Instructor Relationship Specialty Start Date End Date Theodore Zamora DO [address] [place] [address] PCP - General FAMILY PRACTICE 03/15/22 Nena Holland, RN [address] [place] [address] Telephone Diaphragm Assembler (Ambulatory) REGISTERED NURSE 03/17/22 Bonifacio Easton MD [address] [place] [address] PULMONARY DISEASE 08/29/22 documented as of this encounter
--- OUTSIDE RECORDS SUMMARY | 2025-06-07 11:07 | XMS_ITS | Encounter Summary ---
Author Organization [facility] Address [address] [place] [address] Care Team Providers Care Social Services Manager Name Role Phone Sera Theodore Jesus DO Primary Care Provider + Nena Holland RN Unavailable [phone] Bonifacio Easton MD Unavailable Encounter Details Date Type Department Care Team (Late st Contact Info) Description 03/23/2022 [facility] Message Enc [facility] Family & Internal Medicine [address] [address] [facility] Provider Previous PCP Social History Tobacco Use [...] Sex Assigned at Female 11/26/2024 1:20 PM POLYMERIZATION OVEN TENDER Legal Sex Female 5:37 PM CDT Gender Identity Female 11/26/2024 1:20 PM POLYMERIZATION OVEN TENDER Sexual Orientation Not on file Occupation Industry [...] 1:[address] [place] [address] [place] [address] Theodore Zamora DO [address] [place] [address] 09/15/2025 1:00 PM POLYMERIZATION OVEN TENDER Office Visit [facility] Family & Internal Medicine - [place] [address] [place] [address] Theodore Zamora DO [address] [place] [address] documented as of this encounter Goals Goal Patient Goal Type Associated Problems Recent Progress Patient-Stated? Author Consistently take medications as Prescribed General On track(2024 10:15 AM CDT) No Nena Holland RN Establish Plan for Symptom Monitoring- COPD/Asthma General On track(2024 10:15 AM CDT) No Nena Holland, RN Note: COPD/Asthma: Patient will recognize symptoms of COPD/Asthma exacerbation and report to the physician. If severe, patient will seek emergent treatment at [facility] or ER. 01/24/23: Patient seen by (Drying And Winding Supervisor) on 01/10/23 and will f/u on 03/28/23. Reduce Blood Pressure Lifestyle On track(2024 10:15 AM CDT) No Nena Holland, RN Note: Patient to monitor blood pressure weekly and report the onset of any changes. Patient will take medications as directed. documented as of this encounter Visit Diagnoses Not on filedocumented in this encounter Care Teams Social Services Manager Relationship Specialty Start Date End Date Theodore Zamora DO [address] [place] [address] PCP - General FAMILY PRACTICE 03/15/22 Nena Holland RN [address] [place] [address] Multimedia Engineer (Ambulatory) REGISTERED NURSE 03/17/22 Bonifacio Easton MD [address] [place] [address] PULMONARY DISEASE 08/29/22 documented as of this encounter
--- OUTSIDE RECORDS SUMMARY | 2025-06-07 11:07 | XMS_ITS | Encounter Summary ---
Author Organization [facility] Address [address] [place] [address] Care Team Providers Care Die Holder Name Role Phone Theodore Zamora DO Primary Care Provider + Nena Holland RN Unavailable [phone] Bonifacio Easton MD Unavailable Encounter Details Date Type Department Care Team (Late st Contact Info) Description 03/02/2023 MyChart Message Enc [facility] Medical [facility] Family & Internal Medicine [facility] [address] [place] [address] Theodore Zamora DO [address] [place] [address] [facility]. Social History Tobacco Use Types Packs/Day Years Used Date Smoking Tobacco: Never Passive Smoke Exposure: Past Smokeless Tobacco: Never Alcohol Use Standard Drinks/Week Comments Yes 0 (1 standard drink = 0.6 oz pur e alcohol) occ PHQ-2 Answer Date Recorded Patient Health Questionnaire-2 Score 0 11/23/2022 Comments No Sex and Gender Information Value Date Recorded Sex Assigned at Female 11/26/2024 1:20 PM SHAKE PACKER Legal Sex Female 5:37 PM CDT Gender Identity Female 11/26/2024 1:20 PM SHAKE PACKER Sexual Orientation Not on file Occupation Industry [...] Info) Description 06/10/2025 1:30 PM CDT Appointment [facility] [address] [place] [address] Theodore Zamora DO [address] [place] [address] 09/15/2025 1:00 PM SHAKE PACKER Office Visit [facility] Medical Group Family & Internal Medicine [facility] [address] [place] [address] Theodore Zamora DO [address] [place] [address] documented as of this encounter Goals Goal [...] care or ER. 01/24/23: Patient seen by (Prison Guard) on 01/10/23 and will f/u on 03/28/23. Reduce Blood Pressure Lifestyle On track(2024 10:15 AM CDT) Nena Mohan, RN Note: Patient to monitor blood pressure weekly and report the onset of any changes. Patient will take medications as directed. documented as of this encounter Visit Diagnoses Not on filedocumented in this encounter Additional Health Concerns Assessment Noted Time PHQ-9 Depression Total Score: 0 04/21/20 8:42 AM CDT documented as of this encounter Care Teams Die Holder Relationship Specialty Start Date End Date Theodore Zamora DO [address] [place] [address] PCP - General FAMILY PRACTICE 03/15/22 Nena Holland, RN [address] [place] [address] Lump Maker (Ambulatory) REGISTERED NURSE 03/17/22 Bonifacio Easton MD [address] [place] [id number] PULMONARY DISEASE 08/29/22 documented as of this encounter
--- OUTSIDE RECORDS SUMMARY | 2025-06-07 11:07 | XMS_ITS | Encounter Summary ---
Author Organization [facility] Address [address] [place] [address] Care Team Providers Care Staffing Branch Manager Name Role Phone Theodore Zamora DO Primary Care Provider + Nena Holland RN Unavailable [phone] Bonifacio Easton MD Unavailable Encounter Details Date Type Department Care Team (Late Contact Info) Description 07/25/[address] [facility] Medical Group Family & Internal Medicine [facility] [address] [place] [address] Theodore Zamora DO [facility] [place] [address] Medication sent to [email or web address]. Social History Tobacco Use Types Packs/Day Years [...] Sex Assigned at Female 11/26/2024 1:20 PM PIGSKIN TRIMMER Legal Sex Female 5:37 PM CDT Gender Identity Female 11/26/2024 1:20 PM PIGSKIN TRIMMER Sexual Orientation Not on file Occupation Industry Job Start Date Job End Date unemployed Not on file Not on file Not on file documented as of this encounter Plan of Treatment Upcoming Encounters Date Type Department Care Team (Late st Contact Info) Description 06/10/2025 1:[address] [place] [place] [address] [place] [address] Theodore Zamora DO [address] [place] [address] 09/15/2025 1:00 PM PIGSKIN TRIMMER Office Visit [facility] Medical Group Family & Internal Medicine - [place] [address] [place] [address] Theodore Zamora, [address] [place] [address] documented as of this encounter Goals Goal [...] care or ER. 01/24/23: Patient seen by (Coach Driver) on 01/10/23 and will f/u on 03/28/23. [...] documented as of this encounter Care Teams Staffing Branch Manager Relationship Specialty Start Date End Date Theodore Zamora DO [address] [place] [address] PCP - General FAMILY PRACTICE 03/15/22 Nena Holland RN [address] [place] [address] Director Clinical Information Services (Ambulatory) REGISTERED NURSE 03/17/22 Bonifacio Easton MD [address] [place] [address] PULMONARY DISEASE 08/29/22 documented as of this encounter
--- OUTSIDE RECORDS SUMMARY | 2025-06-07 11:08 | XMS_ITS | Encounter Summary ---
Author Organization [facility] Address [facility] [place] [address] Care Team Providers Care Parts Back Counter Man Name Role Phone Theodore Zamora DO Primary Care Provider + Nena Holland RN Unavailable [phone] Bonifacio Easton MD Unavailable Encounter Details Date Type Department Care Team (Late st Contact Info) Description 08/01/2023 MyChart Message Enc [facility] Family & Internal Medicine [facility] [address] [place] [address] Theodore Zamora DO [address] [place] [address] About port revision Social History [...] place to sleep or slept in a residential (including now)? No 07/30/2023 Comments No Sex and Gender Information Value Date Recorded Sex Assigned at Female 11/26/2024 1:20 PM WOOD TOOL MAKER Legal Sex Female 5:37 PM CDT Gender Identity Female 11/26/2024 1:20 PM WOOD TOOL MAKER Sexual Orientation Not on file Occupation Industry Job Start Date Job End Date unemployed Not on file Not on file Not on file documented as of this encounter Plan of Treatment Upcoming Encounters Date Type Department Care Team (Late st Contact Info) Description 06/10/2025 1:30 PM CDT Appointment [facility] [address] [place] [address] Theodore Zamora DO [address] [place] [address] 09/15/2025 1:00 PM WOOD TOOL MAKER Office Visit [facility] Family & Internal Medicine [facility] [address] [place] [phone] Theodore Zamora DO [address] [place] [address] documented as of this encounter Goals Goal [...] care or ER. 01/24/23: Patient seen by (Welt Pocket Machine Operator) on 01/10/23 and will f/u on 03/28/23. [...] documented as of this encounter Care Teams Parts Back Counter Man Relationship Specialty Start Date End Date Theodore Zamora DO [address] [place] [address] PCP - General FAMILY PRACTICE 03/15/22 Nena Holland RN [address] [place], [place] [address] Food And Beverage Intern (Ambulatory) REGISTERED NURSE 03/17/22 Bonifacio Easton MD [address] [place], [place] [address] PULMONARY DISEASE 08/29/22 documented as of this encounter
--- OUTSIDE RECORDS SUMMARY | 2025-06-07 11:08 | XMS_ITS | Encounter Summary ---
Author Organization [facility] Address [facility] [place] [address] Care Team Providers Care Research And Development Specialist Name Role Phone Theodore Zamora DO Primary Care Provider + Nena Holland RN Unavailable [phone] Bonifacio Easton MD Unavailable Encounter Details Date Type Department Care Team (Late st Contact Info) Description 08/02/2023 MyChart Message Enc [facility] Medical Group Family & Internal Medicine [facility] [address] [place] [address] Theodore Zamora DO [address] [place] [address] Mammogram Results Social History Tobacco [...] place to sleep or slept in a jail (including now)? No 07/30/2023 Comments No Sex and Gender Information Value Date Recorded Sex Assigned at Female 11/26/2024 1:20 PM PAPERHANGER AND PAINTER Legal Sex Female 5:37 PM CDT Gender Identity Female 11/26/2024 1:20 PM PAPERHANGER AND PAINTER Sexual Orientation Not on file Occupation Industry Job Start Date Job End Date unemployed Not on file Not on file Not on file documented as of this encounter Plan of Treatment Upcoming Encounters Date Type Department Care Team (Late st Contact Info) Description 06/10/2025 1:30 PM CDT Appointment [facility] [address] [place] [address] Theodore Zamora DO [address] [place] [address] 09/15/2025 1:00 PM PAPERHANGER AND PAINTER Office Visit [facility] Group Family & Internal Medicine [facility] [address] [place] [phone] Theodore Zamora DO [address] [place] [address] documented as of this encounter Goals Goal [...] care or ER. 01/24/23: Patient seen by (Certified Maintenance Welder) on 01/10/23 and will f/u on 03/28/23. [...] documented as of this encounter Care Teams Research And Development Specialist Relationship Specialty Start Date End Date Theodore Zamora DO [address] [place] [address] PCP - General FAMILY PRACTICE 03/15/22 Nena Holland RN [address] [place], [place] [address] Glass Calibrator (Ambulatory) REGISTERED NURSE 03/17/22 Bonifacio Easton MD [address] [place], [place] [address] PULMONARY DISEASE 08/29/22 documented as of this encounter
--- OUTSIDE RECORDS SUMMARY | 2025-06-07 11:08 | XMS_ITS | Clinical Summary ---
Author Organization [facility] Address [address] [place] [address] Care Team Providers Care Frame Cleaner Name Role Phone Gerardo Angeles MD Unavailable [phone] Edgar Piper MD Unavailable [phone] Ruby Manzano MD Unavailable Unavailable Stanley Quezada MD Unavailable [phone] Theodore Zamora DO Primary Care Provider + Source Comments [facility],non-owned Affiliates and Associated Physician Practices is amultiple site organization consisting of ambulatory clinics and hospital sitesin [place], [place], [place]. This disclosure is being madepursuant to the Care Everywhere program and may not contain all information available regarding this patient. 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 Alwaysverify current medications with the patient. amLODIPine (NORVASC) 10 MG tablet Take 1 (one) tablet by mouth once daily 0 02/07/20 18 Active furosemide (LASIX) 40 MG tablet Take 1 (one) tablet by mouth once daily 12/21/19 18 Active lamoTRIgine (LAMICTAL) 200 MG tablet Take 1 (one) tablet by mouth 2 times daily 5 11/20/19 18 Active ramipril (ALTACE) 5 MG capsule Take 1 (one) capsule by mouth 2 times daily 0 02/07/20 18 Active immune globulin, human, (GAMUNEX-C) infusionIndicat ions:CVID (common variable immunodeficienc y) (HCC) 70 g by Intravenous route every 28 days 700 mL 11 03/06/20 18 Active albuterol (PROVENTIL;VENT GIL) (2.5 MG/3ML) 0.083% nebulizer solution Inhale 2.5 (two and one-half) mg by mouth 4 times daily as needed for Shortness of Breath or Wheezing Active diphenhydrAMINE (BENADRYL) 25 mg/50 mL infusion 25 (twenty five) mg by Intravenous route every 28 days For IVIG Active fluticasone propionate (FLONASE) 50 MCG/ACT nasal spray Cornucopia 2 (two) sprays into each nostril once daily Active albuterol HFA (PROVENTIL;VENT GIL;PROAIR) 108 (90 Base) MCG/ACT inhaler Inhale 2 (two) puffs by mouth every 6 hours as needed Active cetirizine-pseu doephedrine 12hr (ZYRTEC-D) 5-120 MG tablet Take 1 (one) tablet by mouth as needed Active fexofenadine (LENA) 180 MG tablet Take by mouth once daily 11/30/19 21 Active theophylline CR 12hr (THEODUR) 300 MG tablet Take 1 (one) tablet by mouth 2 times daily 01/28/20 21 Active olopatadine (PATANOL) 0.1 % ophthalmic solution 04/18/20 21 Active acetaminophen (TYLENOL) 500 MG capsule Take 1 (one) capsule by mouth every 4 hours as needed for Fever or Pain Active mometasone-form oterol (DULERA) 200-5 MCG/ACT inhalerIndicati ons:Asthma,Program Review Director jerilyn Obstructive Pulmonary Disease Inhale 2 (two) puffs by mouth 2 times daily Reasons: Asthma, Chronic Obstructive Lung Disease 39 g 3 11/01/19 22 Active levothyroxine (SYNTHROID) 25 MCG tablet Take by mouth once daily Mon, wed, fri-2 tabs, , Th-1 tab 12/28/19 22 Active HYDROcodone-sreekanth taminophen ([place]) 5-325 MG tablet Take 1 (one) tablet by mouth every 6 hours as needed for Pain Active benzonatate (Tessalon) 100 MG capsule Take 1 (one) capsule by mouth 3 times daily 270 capsule 4 01/11/20 23 Active guaiFENesin ER 12hr (Mucinex) 600 MG tablet Take 1 (one) tablet by mouth every 12 hours as needed for Cough 90 tablet 3 01/11/20 23 Active diphenhydrAMINE (Benadryl) 25 MG capsule Take 1 (one) capsule by mouth every 6 hours as needed for Allergies Active vitamin D, ergocalciferol, (Drisdol) 1.25 MG (97756 UT) capsule Take 1 (one) capsule by mouth every 7 days 11/05/19 24 Active omeprazole (PriLOSEC) 40 MG capsule Take 1 (one) capsule by mouth 2 times daily, before breakfast and supper 11/28/19 24 Active ciclopirox (Penlac) 8 % solution Apply to affected area 2 times daily 6.6 mL 4 02/15/20 24 Active mupirocin (Bactroban) 2 % ointment Apply to affected area 3 times daily 22 g 02/15/20 24 Active cetirizine (ZyrTEC) 10 MG tablet Take 1 (one) tablet by mouth once daily as needed Active UltiCare Tuberculin Safety Syr 25G X 5/8 1 ML MISC USE ONCE A WEEK DIRECTED 05/29/20 24 Active clobetasol (Temovate) 0.05 % cream APPLY TO THE VULVAR AREA AT BEDTIME UNTIL FOLLOW UP APPOINTMENT Active cyanocobalamin (Vitamin B-12) injection Inject 1,000 (one thousand) mcg into muscle 05/21/20 24 Active folic acid (Folvite) 1 MG tablet Take 1 (one) tablet by mouth once daily 06/09/20 24 Active liothyronine (Cytomel) 5 MCG tablet Take 1 (one) tablet by mouth 2 times daily 09/01/20 24 025 Active famotidine (Pepcid) 40 MG tablet Take 1 (one) tablet by mouth 2 times daily Active levothyroxine (Unithroid) 25 MCG tablet Take 1 (one) tablet by mouth daily before breakfast Active rivaroxaban (Xarelto) 10 MG tablet Take 1 (one) tablet by mouth daily with dinner 90 tablet 3 03/30/20 25 026 Active fluticasone-ume clidin-vilant (Trelegy Ellipta) 200-62.5-25 MCG/ACT inhaler Inhale 1 (one) puff by mouth once daily for 90 days 2 Each 3 03/30/20 25 025 Active tacrolimus (Protopic) 0.1 % ointmentIndicat ions:Morphea,Li stark sclerosus Apply twice daily as needed for rash on the trunk and extremities. Ok to use on face if necessary 100 g 6 04/01/20 25 Active docusate sodium (Colace) 100 MG capsule Take 1 (one) capsule by mouth as needed for Constipation 12/29/19 25 Active naloxone HCl (Narcan) 4 MG/0.1ML nasal spray Cornucopia 1 (one) spray into the nose as needed 03/06/20 24 Active oxyCODONE, immediate release, (Roxicodone) 10 MG tablet Take 1 (one) tablet by mouth as directed 12/28/19 25 Active fluticasone-ume clidin-vilant (Trelegy Ellipta) 200-62.5-25 MCG/ACT inhaler Inhale 1 (one) puff by mouth once daily Active lansoprazole, disintegrating, (Prevacid Solutab) 15 MG tablet Take 20 mg by mouth 2 times daily, before breakfast and supper Active ondansetron (Zofran) 4 MG tablet Take 1 (one) tablet by mouth every 6 hours as needed for Nausea/Vomiting Active EPINEPHrine (Epipen) 0.3 MG/0.3ML auto-injector penIndications: Food allergy Inject 0.3 mL into muscle once as needed for Anaphylaxis 2 Each 1 05/20/20 25 Active ondansetron (Zofran) 4 MG tabletIndicatio ns:CVID (common variable immunodeficienc y) ([facility]) Take 1 (one) tablet by mouth every 8 hours as needed for Nausea/Vomiting 30 tablet 3 05/20/20 25 Active ondansetron (Zofran) 4 MG tabletIndicatio ns:CVID (common variable immunodeficienc y) ([facility]) Take 1 (one) tablet by mouth every 8 hours as needed for Nausea/Vomiting 30 tablet 3 02/15/20 24 025 Discontin ued(Reord er) EPINEPHrine (Epipen) 0.3 MG/0.3ML auto-injector penIndications: Food allergy Inject 0.3 mL into muscle once as needed for Anaphylaxis 2 Each 1 08/27/20 24 025 Discontin ued(Reord er) Active Problems Problem Noted Date Diagnosed Date Moderate persistent asthma 03/30/2025 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 ILD (interstitial lung disease) 01/10/[address] 01/10/2023 Gastroesophageal reflux disease without esophagi tis 09/20/2022 Hyperuricemia 11/09/2021 Multiple nevi 11/15/2020 Assessment & Plan (11/15/2020 12:23 PM CLIENT CARE SPECIALIST): - Reassured patient if benign appearance today - Continue in office and self skin examinations - ABCDE of melanoma discussed - Continue sun protection with sunscreen, sun protective clothing and sun avoidance Slow transit constipation 08/16/2020 Epigastric pain 08/16/2020 Functional dyspepsia 08/16/2020 Colonic stricture 02/24/2020 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 08/13/2019 Non-seasonal allergic rhinitis 07/16/2019 Hyperlipidemia 06/18/2019 Dysphagia 03/28/2019 Thyroid nodule 03/28/2019 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 Arthralgia 02/05/2019 Vitamin D deficiency 02/05/2019 Autoimmune thyroiditis 02/05/2019 Eosinophilia 05/04/2018 Food allergy 05/03/2018 Overview (05/03/2018): Shellfish, soy Severe persistent asthma 02/20/2018 CVID (common variable immunodeficiency) 02/21/20 18 Recurrent respiratory infection 02/20/2018 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 MSSA infection, non-invasive 02/11/2016 Chronic pansinusitis 02/17/2015 Chronic sinus bradycardia 12/21/2014 Essential hypertension, benign 09/07/2014 Anxiety 06/17/2014 Overview (01/08/2019): Overview: Anxiety Pulmonary embolism 06/05/2014 Overview (03/20/2018): Overview: ICD-10 Update Chronic obstructive pulmonary disease 03/15/2012 Nasal polyps 03/28/2011 Raynaud's syndrome 07/11/2007 Hypogammaglobulinemia 07/25/2005 Polycystic ovaries 05/04/2004 Incisional hernia, without obstruction or gangre ne Resolved Problems Problem Noted Date Diagnosed Date Resolved Date History of pulmonary embolism 05/26/2024 04/08/2025 Severe persistent asthma wit h acute exacerbation 11/26/2023 12/10/2023 History of pneumothorax 05/28/202310/30 SOB (shortness of breath) 05/18/2023 History of pulmonary embolism 04/18/2023 11/21/2023 Lung nodule 04/18/2023 04/08/2025 Pleuritic chest pain 04/18/2023 025 Recurrent sinus infections 04/18/2023 0 11/21/2023 Encounter for monitoring of theophylline therapy 01/10/2023 11/21/2023 Chronic cough 01/10/2023 04/08/2025 Persistent asthma with undetermined severity 04/08/2025 Perennial allergic rhinitis 09/20/2022 04/08/2025 Adverse food reaction 11/09/20212021 Intra-abdominal abscess 01/24/2021 04/0 03/2022 Sepsis 01/24/2021 04/08/2025 Hand dermatitis 11/15/2020 04/08/2025 Assessment & Plan (11/15/2020 12:25 PM CLIENT CARE SPECIALIST): Favor irritant dermatitis due to hand washing - Start triamcinolone 0.1% cream BID to affected areas on hands, SE of topical steroids including skin atrophy discussed - Recommended emolliation after hand washing Inflamed seborrheic keratosis 11/15/2020 04/08/2025 Assessment & Plan (11/15/2020 12:23 PM CLIENT CARE SPECIALIST): - Benign, reassured patient - Given bothersome, treated with LN2 in clinic today, see procedure note 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 04/08/2025 Assessment & Plan (11/15/2020 12:26 PM CLIENT CARE SPECIALIST): - Reassured of benign appearance today S/P laparoscopic-assisted sigmoidectomy 08/16/2020 02/01/2022 Bilious vomiting with nausea 08/16/2020 04/08/2025 Abdominal pain, LLQ (left lower quadrant) 08/12/2020 02/01/2022 Polycystic ovaries 02/23/2020 History of blood clots 06/18/201902/01 Body mass index (bmi) 36.0-36.9, adult 03/28/2019 02/01/2022 Myalgia 02/05/2019 04/08/2025 Low ferritin 02/05/2019 04/08/2025 Encounter for occupational h istory and physical examination 01/08/2019 02/01/2022 Allergic rhinitis 02/20/2018 05/03/2018 History of pulmonary embolism 02/20/2018 09/01/2020 Cough 08/23/2016 04/17/2018 Carrier of Staphylococcus aureus 06/28/2016 06/21/2022 Non-allergic rhinitis 11/12/20152017 Right forearm injury, initial encounter 08/18/2015 02/01/2022 Dyspnea 01/25/2015 02/01/2022 Calf pain 05/21/2014 09/01/2020 Allergy to multiple antibiotics 05/15/2014 09/01/2020 Chronic respiratory failure 05/15/2014 02/01/2022 Coagulation disorder 04/22/2014 025 Overview (01/08/2019): Overview: Coagulopathy Unknown and unspecified causes of morbidity 04/22/2014 02/01/2022 Overview (01/08/2019): Overview: Chronic anticoagulation Pneumonia due to methicillin sensitive Staphylococcus aureus 04/08/2014 05/04/2018 Pneumonia due to organism 04/08/2014 Overview (03/20/2018): Overview: Probable S. aureaus ICD-10 update 2015 Asthma exacerbation 04/06/2014 04/03/20 18 Respiratory distress 02/24/2014 025 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 05/03/2018 Encounters Date Type Department Care Team Description 05/28/2025 9:16 AM CDT - 05/28/2025 11:59 PM CDT Hospital Encounter [facility] PFT [address] [place] [phone] Bonifacio Easton MD Discharge Disposition: Home or Self Care 05/28/2025 Travel 05/20/2025 3:00 PM CDT Office Visit [facility] - Allergy [address] [facility] [facility] [place] [address] Stanley Quezada MD CVID (common variable immunodeficiency) (HCC) (Primary Dx); Chronic otitis media, unspecified otitis media type; Poorly controlled severe persistent asthma without complication (HCC); Nonallergic rhinitis; Food allergy 05/20/2025 Travel 04/10/2025 9:19 AM CDT - 04/10/2025 11:59 PM CDT Hospital Encounter [facility] CAT SCAN [address] [place] [phone] Bonifacio Easton MD Discharge Disposition: Home or Self Care 04/10/2025 Travel 04/09/2025 Orders Only [facility] - ENT [address] [place] [phone] Edgar Piper MD Polyp of both middle ears ; Jose's triad (HCC); Mixed conductive and sensorineural hearing loss of right ear with restricted hearing of left ear 04/08/2025 1:15 PM CDT Office [facility] [address] [place] [phone] Gerardo Angeles MD Samter's triad (HCC) (Primary Dx); Non-seasonal allergic rhinitis, unspecified trigger; Nasal polyps; Chronic pansinusitis 04/08/2025 Travel 04/06/2025 1:00 PM CDT Office Visit [facility] - ENT [address] [place] [phone] Edgar Piper MD Samter's triad (HCC) (Primary Dx); Dysfunction of both eustachian tubes; Chronic diffuse otitis externa of both ears; Polyp of right middle ear; Perforation of right tympanic membrane; Polyp of both middle ears; Perforation of both tympanic membranes 04/06/2025 Travel 04/01/2025 1:00 PM CDT Office Visit [facility] - Dermatology [address] [place] [phone] Ty Molina MD Sebaceous hyperplasia (Primary Dx); Morphea; Lichen sclerosus; Lentigo; Bautista angioma; Lipoma of left lower extremity 04/01/2025 Travel 03/31/2025 Telephone [facility] - Pulmonology [address] [place] [phone] Bonifacio Easton MD Med Question 03/30/2025 11:00 AM CDT Office Visit [facility] - Pulmonology [address] [place] [phone] Bonifacio Easton MD Persistent asthma with undetermined severity (HCC) (Primary Dx); Chronic obstructive pulmonary disease, unspecified COPD type (HCC); Recurrent respiratory infection; CVID (common variable immunodeficiency) (HCC); History of pulmonary embolism; Lung nodule; Severe persistent asthma, unspecified whether complicated (HCC) 03/30/2025 Orders Only [facility] - Pulmonology [address] [place] [phone] Bonifacio Easton MD Persistent asthma with undetermined severity (HCC); Chronic obstructive pulmonary disease, unspecified COPD type (HCC); Recurrent respiratory infection; CVID (common variable immunodeficiency) (HCC) 03/30/2025 Travel 03/16/2025 Travel from Last 3 Months Immunizations Immunization Administration Dates Next Due COVID PFIZER 12+YR 30MCG/0.3mL 08/22/2024,2022 Covid Moderna primary monova lent 12+ yr 0.5mL 01/09/2021 Covid Pfizer primary Monoval ent 12+ yr 0.3ml 02/01/2022 Covid Pfizer primary monoval ent 12+ yr 0.3mL Purple cap 01/09/2021 FLU VACCINE TRI IIV3 SPLIT I M (FLUVIRIN) 07/25/2021 FLU, HISTORIC VACCINE 07/19/2010, 010,08/19/2003,2002,10/03/2002,10/03/2002 HEP A/HEP B 03/07/2004,09/30/2003,08/19/2003 INFLUENZA [id number], HISTORIC VACCINE 11/01/2009,0 11/01/2009,11/01/2009 INFLUENZA VACCINE 08/12/2023, 2,07/25/2021,2019,06/29/2019,07/16/2018,07/13/2018,0 10/29/2017,08/06/2017,06/28/2016, 015,07/28/2014,07/15/2013,07/19/2012,,07/19/2010,11/01/2009,07/11/20 09,08/19/2003,10/03/2002 INFLUENZA VACCINE, CELL CULT [...] POLIO OPV 04/03/1975 Pneumococcal Pcv13 Conj 09/02/2015,10/29/2014 RSV ABRYSVO PREG OR 60y+ 0.5mL 12/11/2024 TDAP (7yrs+) 06/19/2022,10/14/2014 Td (Adult), 2 Lf [...] Date Recorded Patient Health Questionnaire-2 Score 0 05/20/2025 Comments No Sex and Gender Information Value Date Recorded Sex Assigned at Not on file Legal Sex Female 7:52 AM CLIENT CARE SPECIALIST Gender Identity Not on file Sexual Orientation Not on file Last Filed Vital Signs Vital Sign Reading Time Taken Comments Blood Pressure 123/76 05/20/2025 2:06 PM CDT Pulse 97 05/20/2025 2:06 PM CDT Temperature 36.8 C (98.2 F) 05/20/2025 2:06 PM CDT Respiratory Rate 17 03/30/2025 10:47 AM CDT Oxygen Saturation 95% 05/20/2025 2:06 PM CDT Inhaled Oxygen Concentration 21% 02/01/2021 8 :33 AM CDT Weight 108.9 kg (240 lb) 05/26/2024 11:07 AM CDT Height 170.2 cm (5' 7) 05/20/2025 2:06 PM CDT Body Mass Index 36.49 05/26/2024 11:07 AM CDT Plan of Treatment Upcoming Encounters Date Type Department Care Team (Latest Contact Info) Description 06/15/2025 9:30 AM CDT Office Visit [facility] - Pulmonology [address] [place] [phone] Bonifacio Easton MD [address] [place] [address] [address] DIV OF PULMONARY/[facility] [phone] 07/02/2025 7:20 AM CDT Hospital Encounter [facility] [address] [place] [phone] Gerardo Angeles MD [address] [place] [address] [place] [address] Surgery General 07/02/2025 7:20 AM CDT - 07/02/2025 9:40 AM CDT Surgery [facility] [address] [place] [phone] Gerardo Angeles MD [address] [place] [address] [place] [address] MAXILLARY ANTROSTOMY, FRONTAL SINUSOTOMY, TOTAL ETHMOIDECTOMY, SPHENOIDOTOMY, Bilateral middle ear polyp resection with bilateral tympanolysis 12/04/2025 12:00 PM CLIENT CARE SPECIALIST Office Visit [facility] - Allergy [address] [place] [phone] Stanley Quezada MD [address] [place] [address] [address] DIV OF ALLERGY/[place] [address] Scheduled Procedures Name Priority Associated Diagnoses Date/Ti me ENDOSCOPIC SINUS/NASAL SURGERY Samter's triad (HCC) Nasal polyps Chronic pansinusitis 07/02/2025 7:20 AM CDT Health Maintenance Due Date Last Done Comments COLOGUARD (AGES 45-75) - COLON CA SCREENING 1969 CT COLONOGRAPHY - COLON CA SCREENING 1969 FIT - COLON CA SCREENING 1969 FLEX SIG - COLON CA SCREENING 1969 MEDICARE AWV 12 MONTHS 1969 PAP SMEAR 1990 COVID-19 VACCINE (9 - Mixed Product risk season) 2025 08/22/2024, 08/12/2023, 08/06/2022, Additional history exists INFLUENZA VACCINE (#1) 2025 , 08/12/2023, 08/12/2023, Additional history exists MAMMOGRAM 11/10/2026 11/10/2024, 10/29, 07/27/2023, Additional history exists SCREENING FOR DIABETES 10/16/2027 , 08/26/2024, 08/26/2024, Additional history exists LIPID TESTING 08/26/2029 08/26/2024, 04/2023, 03/22/2022 DTAP/TDAP/TD VACCINES (3 - Td or Tdap) 06/19/2032 06/19/2022, 10/14/2014, 05/10/2007, Additional history exists COLON MONITORING 05/08/2035 05/08/2025, , 10/11/2020, Additional history exists COLONOSCOPY - COLON CA SCREENING 05/08/2035 05/08/2025, 10/11/2020, 10/11/2020, Additional history exists Colorectal Cancer Screening 05/08/2035 HEPATITIS B VACCINE Completed 03/07/2004, 09/30/2003, 08/19/2003 HIV SCREENING Completed 07/13/2014 ZOSTER VACCINE Completed 12/07/2021, 08/24/2021 PNEUMOCOCCAL VACCINE 50+ Completed 023, 07/16/2018, 07/13/2018, Additional history exists HEPATITIS C SCREENING Completed 08/26/2024 DEPRESSION SCREENING Completed 05/20/2025, 02/15/2024, 05/25/2023, Additional history exists HIB VACCINE Aged Out No longer eligi ble based on patient's age to complete this topic HPV VACCINE Aged Out No longer eligi ble based on patient's age to complete this topic MENINGOCOCCAL (Group B) VACCINE SHARED DECISION-MAKING Aged Out No longer eligible based on patient's age to complete this topic MENINGOCOCCAL GROUPS A/C/Y/W VACCINE Aged Out No longer eligible based on patient's age to complete this topic Goals Goal Patient Goal Type Associated Problems Recent Progress Patient-Stated? Author Medication Management General On track( 020 8:56 AM CDT) Ac Rodriguez RN Note: Expected end date: ongoing Interventions: Take all medications as prescribed Let your doctor know right away about any changes in your medications Make sure to request a refill of your medication at least one week prior to your last dose Medical Devices Implanted Type Area Certified Coding Specialist Device Identifier Shelf Expiration Date Model / Serial / Lot Mesh Srg Ventralight St Sepra 8x6in Implanted:Qty: 1 on 03/11/2019 by Vishal Zhou MD at [facility] [employer] 11/25/2020 [id number] / / [id number] Tube Vnt T Flng Grmt 12mm 9.5mm 1.14mm Implanted:Qty: 1 on 06/17/2020 by Edgar Piper MD at [facility] Right: Ear [employer] [id number] / / [id number] Sys Fx 37cm Cpsr Str Ss Peek Perm Hndl Implanted:Qty: 1 on 12/28/2020 by Vishal Zhou MD at [facility] Right: Abdomen [employer] 07/26/2022 [id number] / / [id number]ight [address] Sepra 8x6in Implanted:Qty: 1 on 12/28/2020 by Vishal Zhou MD at [facility] Right: Abdomen [employer] 04/25/2022 [id number] / / [id number] Procedures Procedure Name Priority Date/Time Associated Diagnosis Comments PFT-LAB Routine 05/28/2025 2:01 PM CDT Persistent asthma with undetermined severity (HCC) Chronic obstructive pulmonary disease, unspecified COPD type (HCC) CVID (common variable immunodeficiency) (HCC) HOME O2 EVAL (DESATURATION SCREEN) Routine 05/28/2025 1:25 PM CDT Persistent asthma with undetermined severity (HCC) Chronic obstructive pulmonary disease, unspecified COPD type (HCC) CVID (common variable immunodeficiency) (HCC) SIX MINUTE WALK Routine 05/28/2025 1:22 PM CDT Persistent asthma with undetermined severity (HCC) Chronic obstructive pulmonary disease, unspecified COPD type (HCC) CVID (common variable immunodeficiency) (HCC) CT CHEST WO CONT SUPER DIMENSION Routine 04/10/2025 9:31 AM CDT Persistent asthma with undetermined severity (HCC) Chronic obstructive pulmonary disease, unspecified COPD type (HCC) Recurrent respiratory infection CVID (common variable immunodeficiency) (HCC) Lung nodule IA NASAL ENDOSCOPY,DX Routine 04/08/2025 1:34 PM CDT Samter's triad (HCC) Non-seasonal allergic rhinitis, unspecified trigger Nasal polyps Chronic pansinusitis IA EAR MICROSCOPY EXAMINATION Routine 04/06/2025 1:09 PM CDT Dysfunction of both eustachian tubes COMPREHENSIVE METABOLIC PANEL Routine 10/16/2024 9:45 AM CLIENT CARE SPECIALIST Localized scleroderma Polyarthralgia ENDOSCOPY, COLON, SCREENING Routine 10/11/2020 10:30 AM CLIENT CARE SPECIALIST HIV-1 HIV-2 ANTIGEN/ANTIBODY Add on 07/13/2014 1:36 PM CDT from Last 3 Months or Most Recently Relevant to Health Maintenance Results * COMPLETE PFT (05/28/2025 2:01 PM CDT) Narrative Elvis Avilez MD - 05/28/2025 2:01 PM CDT Elvis Avilez MD 06/03/2025 4:58 PM us Bonifacio Easton MD RESPIRATORY THERAPY ORDERABLES E dited Result - Final * AMBULATORY OXIMETRY (05/28/2025 1:25 PM CDT) Narrative Elvis Avilez MD - 05/28/2025 1:25 PM CDT Elvis Avilez MD 06/03/2025 4:58 PM us Bonifacio Easton MD RESPIRATORY THERAPY ORDERABLES E dited Result - Final * SIX MINUTE WALK (05/28/2025 1:22 PM CDT) Narrative Elvis Avilez MD - 05/28/2025 1:22 PM CDT Elvis Avilez MD 06/03/2025 4:58 PM Bonifacio Easton MD RESPIRATORY THERAPY ORDERABLES E dited Result - Final * CT Chest Wo Cont Super Dimension (04/10/2025 9:31 AM CDT) Anatomical Region Laterality Modality Chest Computed Tomogra phy 04/10/2025 11:4 1 AM CDT Impressions 04/10/2025 11:47 AM CDT Impression: 1.Unchanged 1.8 cm nodular opacity in the left lower lobe. Continued follow-up is recommended. > Interpreting Provider: Dionisio Bach MD on 04/10/2025 11:47 AM Narrative 04/10/2025 11:47 AM CDT PROCEDURE: CT CHEST WO CONT SUPER DIMENSION DATE/TIME OF EXAM: 04/10/2025 9:31 AM CLINICAL INFORMATION: None relevant/not provided if blank. Indication: J45.998: Persistent asthma with undetermined severity ([facility]) J44.9: Chronic obstructive pulmonary disease, unspecified COPD type ([facility]) J98.8: Recurrent respiratory infection D83.9: CVID (common variable immunodeficiency) ([facility]) R91.1: Lung nodule Additional History: COMPARISON: 06/23/2024, CT CHEST WO CONT AND HIRES TECHNIQUE: CT of the chest was performed without intravenous contrast utilizing standard protocol. CT dose reduction technique was used, including Automated Exposure Control. FINDINGS: Right internal jugular approach central venous catheter terminates in the distal superior vena cava. Lower Neck and Axillae: Normal. Lungs: No significant change in a bronchocentric pulmonary nodule in the left lower lobe that measures approximately 1.8 cm in transverse dimension (Series 4, Image 237). Bronchial wall thickening present in the lower lobes bilaterally which could indicate chronic aspiration. No pleural fluid or pneumothorax is present. Heart and Pericardium: The cardiac chambers are normal in size. No pericardial fluid or thickening is present. Mediastinum and Gogo: Subcentimeter mediastinal lymph nodes without lymphadenopathy. Thoracic Vasculature: Mild aortic calcifications. Bones and Chest Wall: Bone windows demonstrate no suspicious lytic or blastic lesions. The visible osseous structures are intact. Upper Abdomen: The visible portions of the upper abdominal organs are normal. Gallbladder is absent. Procedure Note Dionisio Bach MD - 04/10/2025 PROCEDURE: CT CHEST WO CONT SUPER DIMENSION DATE/TIME OF EXAM: 04/10/2025 9:31 AM CLINICAL INFORMATION: None relevant/not provided if blank. Indication: J45.998: Persistent asthma with undetermined severity (HCC) J44.9: Chronic obstructive pulmonary disease, unspecified COPD type(HCC) J98.8: Recurrent respiratory infection D83.9: CVID (common variable immunodeficiency) (HCC) R91.1: Lung nodule Additional History: COMPARISON: 06/23/2024, CT CHEST WO CONT AND BELA TECHNIQUE: CT of the chest was performed without intravenous contrast utilizing standard protocol. CT dose reduction technique was used, including Automated ExposureControl. FINDINGS: Right internal jugular approach central venous catheter terminates inthe distal superior vena cava. Lower Neck and Axillae: Normal. Lungs: No significant change in a bronchocentric pulmonary nodule in the left lower lobe that measures approximately 1.8 cm in transverse dimension (Series 4, Image 237). Bronchial wall thickening present in the lowerlobes bilaterally which could indicate chronic aspiration. No pleural fluidor pneumothorax is present. Heart and Pericardium: The cardiac chambers are normal in size. No pericardial fluid orthickening is present. Mediastinum and Gogo: Subcentimeter mediastinal lymph nodes without lymphadenopathy. Thoracic Vasculature: Mild aortic calcifications. Bones and Chest Wall: Bone windows demonstrate no suspicious lytic or blastic lesions. The visible osseous structures are intact. Upper Abdomen: The visible portions of the upper abdominal organs are normal.Gallbladder is absent. Impression: 1.Unchanged 1.8 cm nodular opacity in the left lower lobe. Continued follow-up is recommended. > Interpreting Provider: Dionisio Bach MD on 04/10/2025 11:47 AM us Bonifacio Easton MD CT ORDERABLES Final Result * IA NASAL ENDOSCOPY,DX (04/08/2025 1:34 PM CDT) Gerardo Rudolph MD - 04/08/2025 1:34 PM CDT Gerardo Angeles MD 04/10/2025 10:44 AM Procedure: Rigid Nasal Endoscopy Anesthesia: none Detail: Rigid nasal endoscopy performed bilaterally. We visualized the entire septum as well as the inferior turbinate, middle turbinate, superior turbinate and sphenoethmoid recess. We also visualized the nasopharynx. Unless mentioned below these structures were normal. Septum was relatively midline. Large posterior septectomy is stable. On both sides there is thick allergic mucin filling the maxillary sinus and the maxillary opening is relatively small due to mucosal hypertrophy. Within the sphenoid sinus on both sides there is some thick allergic mucin. Superiorly into the frontal outflow tract and [place] cavity there is some dried allergic mucin but both sides are widely open. There is hypertrophic mucosa but no blanche polyps. Patient tolerated well. EBL: none Gerardo Angeles MD PROCEDURE/MINOR SURGICAL OR DERABLES Final Result * IA EAR MICROSCOPY EXAMINATION (04/06/2025 1:09 PM CDT) Narrative Edgar Piper MD - 04/06/2025 1:09 PM CDT Edgar Piper MD 04/06/2025 1:10 PM Procedure: Microscopic exam of the ear(s) Findings: See main note. Procedure in detail: The binocular operating microscope and and ear speculum were used to exam the ear(s). The patient tolerated the procedure well and there was no bleeding. Edgar Piper MD Edgar Piper MD PROCEDURE/MINOR SURGICAL OR DERABLES Final Result * (ABNORMAL) COMPREHENSIVE METABOLIC PANEL (10/16/2024 9:45 AM CLIENT CARE SPECIALIST) Glucose 101(H) 65 - 99 mg/dL [facility] [...] 29 U/L [facility] Comment: Test Performed at: [facility] [id number] [place] [address] TUCKER CULVER MD Blood BLOOD SPECIMEN / Unknown 10/16/2024 9:45 AM CLIENT CARE SPECIALIST 10/16/2024 9:48 AM CLIENT CARE SPECIALIST us Ryan Morris MD LAB - CHEMISTRY ORDERABLES Final Result [facility] [address] [place] [address] * ENDOSCOPY, COLON, SCREENING (10/11/2020 10:30 AM CLIENT CARE SPECIALIST) Report Endoscopy POC Endoscopy Department Report _ [...] and oxygen saturations were monitored continuously. The [id number] was introduced through the anus and advanced to the cecum, identified by appendiceal orifice and ileocecal valve. The colonoscopy was performed without difficulty. The patient tolerated the procedure well. The ileocecal valve, appendiceal orifice, and rectum were photographed. The quality of the bowel preparation was evaluated using the BBPS ([place] Bowel Preparation Scale) with scores of: Right [...] non-gray portions. Procedure Code(s): --- Professional --- 81240, Colonoscopy, flexible; with biopsy, single or multiple Diagnosis Code(s): --- Professional --- Z12.11, Encounter for screening for malignant neoplasm of colon K63.5, Polyp of colon Z98.0, Intestinal bypass and anastomosis status CPT copyright 2019 [employer]. All rights reserved. The codes documented in this report are preliminary and upon solar photovoltaic electrician review may be revised to meet current compliance requirements. Humza Wiley MD 10/11/2020 11:33:23 AM Note Initiated On: 10/11/2020 10:30 AM Number of Addenda: 0 [facility] [address] [place] [address] 10/11/2020 10:3 0 AM CLIENT CARE SPECIALIST us Humza Wiley MD GI PROCEDURE ORDERAB LES Edited Result - Final [facility] * HIV-1 HIV-2 ANTIGEN/ANTIBODY (07/13/2014 1:36 PM CDT) HIV Antigen/Antibod y 1 & 2 Non-reacti ve Non-react mario [facility] Comment: Neither HIV-1 p24 Antigen nor HIV-1/HIV-2 Antibodies are detected. Blood specimen (specimen) BLOOD SPECIMEN / Unknown 07/13/2014 1:36 PM CDT 07/13/2014 1:43 PM CDT us James Calderon MD LAB - HEMATOLOGY ORDERABLES Final Result Performing Organization Address [facility] Co de Phone Number [facility] [address] [place] [address] from Last 3 Months or Most Recently Relevant to Health Maintenance Insurance MEDICARE [facility] MEDICARE [facility] MEDICARE Advance Directives * Full Code (Latest Code [...] 11:50 AM 09/16/2018 3:31 PM Care Teams Frame Cleaner Relationship Specialty Start Date End Date Theodore Zamora DO [address] [place] [id number] PCP - General Family Medicine Geriatric Medicine 04/11/23 Gerardo Angeles MD Otolaryngology 07/16/19 Edgar Piper MD Otolaryngology 07/16/19 Ruby Manzano MD Dermatology 07/16/19 Stanley Quezada MD [facility] [place] [id number] Allergy and Immunology 07/16/19
--- OUTSIDE RECORDS SUMMARY | 2025-06-07 11:08 | XMS_ITS | Clinical Summary ---
Author Organization [facility] Address [facility] [place] [address] Care Team Providers Care Highway Safety Engineer Name Role Phone BillKarissa small Ann Marie MARTINI Primary Care Provider + Nena Holland RN Unavailable [phone] Bonifacio Easton MD Unavailable Allergies Active Allergy [...] Nasal route 2 (two) times a day. 018 Active immune globulin, Human, 10 GM/100ML Solution solution Inject 700 mLs (70 g total) into the vein every 28 days. Last dose 09/27/22 Active lamoTRIgine 200 MG tablet Take 1 tablet (200 mg total) by mouth 2 (two) times daily. 11 Active ipratropium 0.02 % nebulizer solution Use daily as needed for sob Active diphenhydrAMINE 50 MG/ML injection Monthly Active Acetaminophen 500 MG Cap Take 500 mg by mouth. Every 8 to 10 hours prn Active EPINEPHrine 0.3 MG/0.3ML injection epinephrine 0.3 mg/0.3 mL injection, auto-injector INJECT 0.3 ML IN THE MUSCLE ONCE NEEDED FOR ANAPHYLAXIS Active nystatin cream as needed. Acti ve triamcinolone 0.1 % creamIndication s:Eczema, unspecified type Apply topically 2 (two) times daily. 80 g 022 Active Additional Information Patient taking differently:Topical2 times daily PRN, Reported on 06/02/2025 cetirizine (ZYRTEC) 10 MG tablet Take 1 tablet (10 mg total) by mouth daily as needed for Allergies. Active diphenhydrAMINE (BENADRYL) 25 MG capsule Take 1 capsule (25 mg total) by mouth every 6 (six) hours as needed for Itching. Active albuterol (PROVENTIL) (2.5 MG/3ML) 0.083% nebulizer solutionIndicat ions:Chronic obstructive pulmonary disease, unspecified COPD type (CMS/HCC HHS/HCC) Take 3 mLs (2.5 mg total) by nebulization every 6 (six) hours as needed. 360 mL 2 023 Active Additional Information Patient taking differently:2.5 mg Nebulization,(No frequency reported), Every 4 to 6 hours prn, Reported on 06/02/2025 Skin Oils (LUBRIDERM EX) Apply topically daily. Active albuterol sulfate HFA 108 (90 Base) MCG/ACT inhalerIndicati ons:Chronic obstructive pulmonary disease, unspecified COPD type (CMS/HCC HHS/HCC) INHALE 2 PUFFS BY MOUTH EVERY 6 HOURS NEEDED FOR WHEEZING 18 g 3 023 Active clobetasol (TEMOVATE) 0.05 % cream Apply topically daily as needed. Apply to vulva area at bedtime Active ondansetron (ZOFRAN) 4 MG tabletIndicatio ns:Nausea Take 1 tablet (4 mg total) by mouth every 8 (eight) hours as needed. 20 tablet 023 Active olopatadine (PATANOL) 0.1 % ophthalmic solutionIndicat ions:Seasonal allergies Place 1 drop into both eyes 2 (two) times daily. In morning 5 mL 2 023 Active Additional Information Patient taking differently:1 drop Both Eyes2 times daily PRN, In morning, Reported on 06/02/2025 mupirocin (BACTROBAN) 2 % ointment 024 Active tacrolimus (PROTOPIC) 0.1 % ointment Apply topically 2 (two) times daily as needed. Active liothyronine (CYTOMEL) 5 MCG TabIndications: Louise's disease,Thyroid nodule TAKE 1 TABLET(5 MCG) BY MOUTH TWICE DAILY 180 tablet 1 024 Active Additional Information Patient taking differently: 5 mcg 2 times daily, Takes at 1:00 PM and 7:00 PM, Reported on 06/02/2025 fexofenadine (LENA) 180 MG tabletIndicatio ns:Seasonal allergies TAKE 1 TABLET(180 MG) BY MOUTH DAILY 90 tablet 3 025 Active famotidine (PEPCID) 40 MG tablet Take 1 tablet (40 mg total) by mouth 2 (two) times daily. Active ramipril (ALTACE) 5 MG capsuleIndicati ons:Essential hypertension TAKE 1 CAPSULE BY MOUTH TWICE DAILY 180 capsule 1 025 Active cyclobenzaprine (FLEXERIL) 10 MG tablet Take 1 tablet (10 mg total) by mouth every 8 (eight) hours as needed. 025 Active rivaroxaban (XARELTO) 20 MG Tab tabletIndicatio ns:History of pulmonary embolism Take 1 tablet (20 mg total) by mouth daily with supper. 90 tablet 1 025 Active amLODIPine (NORVASC) 10 MG tabletIndicatio ns:Essential hypertension TAKE 1 TABLET(10 MG) BY MOUTH DAILY 90 tablet 025 Active furosemide (LASIX) 40 MG tabletIndicatio ns:Essential hypertension TAKE 1 TABLET BY MOUTH EVERY DAY 90 tablet 025 Active vitamin D2, ergocalciferol, (DRISDOL) 1.25 mg capsuleIndicati ons:Vitamin D deficiency TAKE 1 CAPSULE BY MOUTH EVERY 7 DAYS ON SUNDAY EVENING 5 capsule 1 025 Active DULERA 200-5 MCG/ACT AerosolIndicati ons:Chronic obstructive pulmonary disease, unspecified COPD type (CMS/[facility] HHS/HCC) USE 2 INHALATIONS TWICE A DAY 39 g 3 025 Active Additional Information Patient taking differently:2 puff InhalationEvery 6 hours PRN, short of breath, As rescue inhaler. Per pulmonology, Reported on 06/02/2025 vitamin B-12 (CYANOCOBALAMIN ) (CYANOCOBALAMIN ) 1000 mcg tablet Take 1 tablet (1,000 mcg total) by mouth daily. Active levothyroxine (UNITHROID) 25 MCG tablet Take by mouth every morning. 50 mcg on and 25 mcg the rest of the week. Active theophylline ER (THEODUR) 300 MG 12 hr tabletIndicatio ns:Chronic obstructive pulmonary disease, unspecified COPD type (CMS/HCC HHS/HCC) TAKE 1 TABLET(300 MG) BY MOUTH TWICE DAILY 180 tablet 025 Active omeprazole (PRILOSEC) 40 MG capsuleIndicati ons:Gastroesoph ageal reflux disease, unspecified whether esophagitis present TAKE 1 CAPSULE BY MOUTH TWICE DAILY BEFORE BREAKFAST AND SUPPER 180 capsule 025 Active HYDROcodone-sreekanth taminophen (NORCO) 5-325 MG tabletIndicatio ns:Chronic Pain Take 1 tablet by mouth every 6 (six) hours as needed for Pain. Indications: Chronic Pain 60 tablet Active folic acid (FOLVITE) 1 MG tabletIndicatio ns:Vitamin B12 deficiency (non anemic) TAKE 1 TABLET(1 MG) BY MOUTH EVERY MORNING 90 tablet Active cefdinir (OMNICEF) 300 MG Cap capsuleIndicati ons:Acute cystitis with hematuria Take 1 capsule (300 mg total) by mouth 2 (two) times daily. 20 capsule Active theophylline ER (THEODUR) 300 MG 12 hr tabletIndicatio ns:Chronic obstructive pulmonary disease, unspecified COPD type ([facility]) TAKE 1 TABLET(300 MG) BY MOUTH TWICE DAILY 180 tablet 025 2024 Discontinued omeprazole (PRILOSEC) 40 MG capsuleIndicati ons:Gastroesoph ageal reflux disease, unspecified whether esophagitis present TAKE 1 CAPSULE BY MOUTH TWICE DAILY BEFORE BREAKFAST AND SUPPER 180 capsule 025 2024 Discontinued folic acid (FOLVITE) 1 MG tabletIndicatio ns:Vitamin B12 deficiency (non anemic) TAKE 1 TABLET(1 MG) BY MOUTH EVERY MORNING 90 tablet 025 2024 Discontinued TRELEGY ELLIPTA 200-62.5-25 MCG/ACT AEROSOL POWDER, BREATH ACTIVATED Inhale 1 puff into the lungs daily. 025 2024 Discontinued(C ost of medication) HYDROcodone-sreekanth taminophen (NORCO) 5-325 MG tabletIndicatio ns:Chronic Pain Take 1 tablet by mouth every 6 (six) hours as needed for Pain. Indications: Chronic Pain 60 tablet 025 2024 Discontinued(R eorder) Active Problems Problem Noted Date Diagnosed Date Bloating 01/07/2025 History of GI bleed 01/06/2025 Diarrhea 01/06/2025 Common variable immunodefici ency, unspecified ([facility]) 05/21/2024 Lichen sclerosus 05/21/2024 Chronic pain syndrome 05/21/2024 Bimalleolar fracture of left ankle 09/04/2023 Infected venous access port 03/14/2023 Bacteremia associated with IV line 03/14/2023 Vitamin B12 deficiency (non anemic) 03/13/2023 Hypothyroidism 03/13/2023 ILD (interstitial lung disease) ([facility] ) 01/10/2023 Pulmonary nodule 1 cm or greater in diameter Care Management 03/20/2022 Hyperuricemia 11/09/2021 Thrombocytosis 02/23/2021 Hand dermatitis 11/15/2020 [...] 08/16/2020 Slow transit constipation 08/16/2020 Colonic stricture ([facility]) 02/24/2020 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 08/13/2019 Non-seasonal allergic rhinitis 07/16/2019 Dysphagia 03/28/2019 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 Thyroid nodule 03/28/2019 Vitamin D deficiency 02/05/2019 Food allergy 05/03/2018 Overview (03/16/2022): Shellfish, soy CVID (common variable immunodeficiency) ([facility]) 02/20/2018 Poorly controlled severe per sistent asthma without complication ([facility]) 02/20/2018 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 06/28/2016 Anxiety 06/17/2014 Overview (03/16/2022): Overview: Anxiety Anxiety Common variable agammaglobulinemia ([facility]) Overview (03/16/2022): Deficiency, immunity, common variable History of pulmonary embolism 04/22/2014 Overview (03/16/2022): Healed or old pulmonary embolism Chronic obstructive pulmonary disease ([facility] /[facility]) 03/15/2012 Raynaud's syndrome 07/11/2007 Hypogammaglobulinemia ([facility]) 07/25/2005 Polycystic ovaries 05/04/2004 Essential hypertension Hyperlipidemia Resolved Problems Problem Noted Date Diagnosed Date Resolved Date Port-A-Cath in place 09/04/2023 023 Incisional hernia, without o bstruction or gangrene 03/16/2022 01/08/2025 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 03/19/2022 Overview (03/16/2022): Last Assessment & Plan: - Reassured of benign appearance today Pulmonary embolism ([facility]) 06/05/2014 03/16/2022 Overview (03/16/2022): Overview: ICD-10 Update History of blood clots 04/21 Encounters Date Type Department Care Team Description 06/02/2025 1:00 PM CDT Office Visit [facility] Family & Internal Medicine [address] [phone] Karissa Caro, DO Follow Up (Patient is here for a 3 month follow up.); Hypertension; Pain; Urinary Symptoms (Patient c/o cloudy urine, urinary frequency, 101 fever, dysuria, lower abd pain and intermittent incontinence.) 06/02/2025 - 06/02/2025 11:59 PM CDT Hospital Encounter [facility] [address] [place] [address] Karissa Caro, DO Discharge Disposition: Home or Self Care (Routine Discharge) 06/02/2025 Results Follow-Up [facility] Family & Internal Medicine [place] [address] [place] [phone] Karissa Caro, DO URINALYSIS AUTO DIP, URINE BACTERIA CULTURE 06/02/2025 Travel 05/28/2025 Scan [facility] SRV[facility] Scanned, [facility] PFT (SCAN) 05/08/2025 10:52 AM CDT Anesthesia Event [facility] Surgery [address] [place] [address] Alex May, Franko Valdovinos MD 05/08/2025 10:35 AM CDT - 05/08/2025 11:12 AM CDT Surgery [facility] [address] [place] [address] Patel Garay MD Upper Endoscopy 05/08/2025 9:13 AM CDT - 05/08/2025 11:55 AM CDT Hospital Encounter [facility] [address] [place] [id number] Patel Garay MD Discharge Disposition: Home or Self Care (Routine Discharge) 05/08/2025 Travel 04/30/2025 Scan [facility] Scanned, [facility] Generic Orders (SCAN) 04/30/2025 Telephone [facility] One Day Services [address] [place] [address] Patel Garay MD Concerns 04/28/2025 Patient Outreach [facility] Family & Internal [address] [phone] Nena Holland, RN Care Management 04/20/2025 1:40 PM CDT Allied Health/Nurse Visit [facility] Family & Internal [address] [phone] Karissa Caro, DO Allied Health Visit (BP check) 04/20/2025 Travel 04/20/2025 Telephone [facility] Family & Internal [address] [phone] Karissa Caro, DO Follow Up Call 04/20/2025 Patient Outreach [facility] Family & Internal [address] [phone] Nena Holland, RN Care Management 04/17/2025 Telephone [facility] Family & Internal [address] [phone] Karissa Caro, DO Medication Reconciliation 04/08/2025 Scan [facility] Scanned, [facility] 04/08/2025 Telephone [facility]ispecialty Care - [address], [address] [place] [phone] Patel Garay MD Prior Authorization (Colonoscopy [id number]) 04/07/2025 Scan [facility] Scanned, [facility] 03/18/2025 Patient Outreach [facility] Internal [address] [phone] Nena Holland RN Care Management 03/10/2025 10:44 AM CDT - 03/10/2025 11:59 PM CDT Hospital Encounter [facility] Imaging [address] [place] [address] Karissa Caro, DO Discharge Disposition: Home or Self Care (Routine Discharge) 03/10/2025 Travel from Last 3 Months Immunizations Immunization Administration Dates Next Due FLUCELVAX (ccIIV3, TRIVALENT, 0.5mL) 08/04/2024 H1N1 Injectable 2009 Influenza 11/01/2009 Hepatitis A/Hepatitis B(Twinrix) 03/07/2004,12/0 12/2002,08/19/2003 Influenza (FluMist) 07/19/2010 Influenza (Generic) 07/25/2021, 9,07/13/2018,2017,06/28/2016,08/06/2015,07/28/2014,0 [...] Past Smokeless Tobacco: Never Tobacco Cessation:Counseling Given: No Alcohol Use Standard Drinks/Week Comments Yes 0 [...] place to sleep or slept in a fdc (including now)? No 07/30/2023 Comments No Sex and Gender Information Value Date Recorded Sex Assigned at Female 11/26/2024 1:20 PM SHERIFF DEPUTY Legal Sex Female 5:37 PM CDT Gender Identity Female 11/26/2024 1:20 PM SHERIFF DEPUTY Sexual Orientation Not on file Occupation Industry Job Start Date Job End Date unemployed Not on file Not on file Not on file Last Filed Vital Signs Vital Sign Reading Time Taken Comments Blood Pressure 120/66 06/02/2025 1:06 PM CDT Pulse 95 06/02/2025 1:06 PM CDT Temperature 36.8 C (98.2 F) 06/02/2025 1:06 PM CDT Respiratory Rate 18 05/08/2025 11:38 AM CDT Oxygen Saturation 98% 06/02/2025 1:06 PM CDT Inhaled Oxygen Concentration - - Weight 99.8 kg (220 lb) 05/08/2025 10:00 AM CDT Height 170.2 cm (5' 7) 06/02/2025 1:06 PM CDT Body Mass Index 34.46 05/08/2025 10:00 AM CDT Plan of Treatment Upcoming Encounters Date Type Department Care Team (Late st Contact Info) Description 06/10/2025 1:30 PM CDT Appoint[place] [address] [place] [address] [place] [address] [place] [id number] 09/15/2025 1:00 PM SHERIFF DEPUTY Office Visit [facility] Family & Internal Medicine [address] [phone] Karissa Caro, DO [address] [place] [address] Health Maintenance Due Date Last Done Comments Annual Physical 1972 Cervical Cancer Screening Pap with HPV Testing (Age 30 to 64) Every 5 Years 1999 Cervical Cancer Screening Pap Smear (Age 30 to 64) Every 3 Years 12/27/2024 12/27/2021, 12/27/2021, 11/29/2020 Cervical Cancer Screening with HPV 12/27/2024 Mammogram Screening 11/10/2025 11/10/2024, 11/10/2024, 07/27/2023, Additional history exists COVID-19 Vaccine (9 - Mixed Product risk season) 2025 08/22/2024, 08/12/2023, 08/06/2022, Additional history exists Postponed from 02/20/2025 (Patient Refused) Colorectal Cancer Screening Colonoscopy (10 Years) 05/08/2032 05/08/2025, 10/11/2020, 12/24/2019 DTaP, Tdap and Td Vaccines (3 - Td or Tdap) 06/19/2032 06/19/2022, 10/14/2014, 05/10/2007, Additional history exists Hepatitis B Vaccines Completed 03/07/2004, 09/30/2003, 08/19/2003 Zoster Vaccines Completed 12/07/2021, 08/24/2021 Pneumococcal Vaccine: 50+ Years Completed 04/18/2023, 07/16/2018, 07/13/2018, Additional history exists Hepatitis C Completed 08/26/2024 PHQ-2 (Physician [place]) Completed 12/05/2024 Meningococcal B Vaccine Aged Out [...] care or ER. 01/24/23: Patient seen by (Custom Motorcycle Painter) on 01/10/23 and will f/u on 03/28/23. Reduce Blood Pressure Lifestyle On track(2024 10:15 AM CDT) No Nena Holland RN Note: Patient to monitor blood pressure weekly and report the onset of any changes. Patient will take medications as directed. Medical Devices Implanted Type Area Director Electronics Device Identifier Shelf Expiration Date Model / Serial / Lot Mesh Umbilical Explanted Type Area Director Electronics Device Identifier Shelf Expiration Date Model / Serial / Lot Port-Right Side Explanted:Qty: 1 on 01/15/2023 by Tramaine Soler MD at [facility] Procedures Procedure Name Priority Date/Time Associated Diagnosis Comments COLLECTION VENOUS BLOOD VENIPUNCTURE Routine 06/02/2025 1:29 PM CDT Vitamin D deficiency Essential hypertension URINE BACTERIA CULTURE Routine 06/02/2025 1:14 PM CDT Dysuria URINALYSIS AUTO DIP Routine 06/02/2025 Dysuria PFT GENERIC (SCAN ORDER) 05/28/2025 COLONOSCOPY FLX DX W/COLLJ SPEC WHEN PFRMD 05/08/2025 10:48 AM CDT History of GI bleed Diarrhea, unspecified type Bloating Case Notes C UPPER GI ENDOSCOPY,DIAGNOSIS 05/08/2025 10:48 AM CDT History of GI bleed Diarrhea, unspecified type Bloating Case Notes C SPIROMETRY GENERIC (SCAN ORDER) 04/30/2025 BONE DENSITY/DEXA Routine 03/10/2025 11: 11 AM CDT Postmenopausal MAMMOGRAM GENERIC (SCAN ORDER) 11/10/2024 HEPATITIS C ANTIBODY W/RFX TO HCV RNA Routine 08/26/2024 12:50 PM CDT Need for hepatitis C screening test Annual physical exam OUTSIDE CYTOPATH CERV/VAG INTERPRET (PAP) (SCAN ORDER) 12/27/2021 COLONOSCOPY GENERIC (SCAN ORDER) Routine 10/11/2020 from Last 3 Months or Most Recently Relevant to Health Maintenance Results * URINE BACTERIA CULTURE (06/02/2025 1:14 PM CDT) SPEC DESCRIPTION URINE CLEAN CATCH 06/02/2025 1:14 PM CDT [facility] SPECIAL REQUESTS NO SPECIAL REQUEST 06/02/2025 1:14 PM CDT [facility] CULTURE RESULT >50,000 TO 99,999 CFU/mL ESCHERICHIA COLI 06/05/2025 8:15 AM CDT [facility] URINE SPECIMEN OBTAINED BY CLEAN CATCH PROCEDURE / Unknown 06/02/2025 1:14 PM CDT 06/02/2025 8:39 PM CDT Narrative Organism Antibiotic Method Susceptibility Escherichia coli AMPICILLIN NICOLETTE (VITEK) Sensitive Escherichia coli AMOXICILLIN/CLAVULANIC A NICOLETTE (VITEK) Sensitive Escherichia coli AZTREONAM NICOLETTE (VITEK) Sensitive Escherichia coli CEFEPIME NICOLETTE (VITEK) Sensitive Escherichia coli CEFTRIAXONE NICOLETTE (VITEK) Sensitive Escherichia coli CEFAZOLIN NICOLETTE (VITEK) Sensitive Escherichia coli CIPROFLOXACIN NICOLETTE (VITEK) Sensitive Escherichia coli ESBL NICOLETTE (VITEK) NEG: Sensitive Escherichia coli ERTAPENEM NICOLETTE (VITEK) Sensitive Escherichia coli NITROFURANTOIN NICOLETTE (VITEK) Sensitive Escherichia coli GENTAMICIN NICOLETTE (VITEK) Sensitive Escherichia coli IMIPENEM NICOLETTE (VITEK) Sensitive Escherichia coli LEVOFLOXACIN NICOLETTE (VITEK) Sensitive Escherichia coli MEROPENEM NICOLETTE (VITEK) Sensitive Escherichia coli PIPERACILLIN/TAZOBACTAM NICOLETTE (VITEK) Sensitive Escherichia coli TRIMETH-SULFAMETH. NICOLETTE (VITEK) Sensitive Escherichia coli TETRACYCLINE NICOLETTE (VITEK) Sensitive Karissa Caro DO MICROBIOLOGY - GENERAL O RDERABLES Final Result [facility] [address] [place] [address], [id number] * (ABNORMAL) URINALYSIS AUTO DIP (06/02/2025) COLOR (U) YELLOW YELLOW [facility] TRANSPARENCY TURBID(A) CLEAR [facility] GLUCOSE (U) NEGATIVE NEGATIVE MG/DL [facility] BILIRUBIN (U) NEGATIVE NEGATIVE [facility] KETONES MG/DL (U) 5 (TRACE)(A) NEGATIVE MG/DL [facility] SPECIFIC GRAVITY (U) 1.025 1.001 - 1.035 [facility] BLOOD (U) MODERATE (2+ Hemolyzed, About 50 rbc/uL)(A) NEGATIVE [facility] U PH 6.0 5.0 - 9.0 [facility] PROTEIN (U) 2+ (100)(A) NEGATIVE mg/dL [facility] UROBILINOGEN 0.2 0.2 - 1.0 EU/dL = mg/dL [facility] NITRITES NEGATIVE NEGATIVE MG/DL [facility] LEUKOCYTES (U) 1+ (SMALL)(A) NEGATIVE [facility] URINE SPECIMEN OBTAINED BY CLEAN CATCH PROCEDURE / Unknown 06/02/2025 Karissa Caro DO URINE ORDERABLES Final R esult [facility] [address] [place] [address], [place] * PFT GENERIC (SCAN ORDER) (05/28/2025) 05/28/2025 [facility] Scanned SCANNING Final Resu lt * SPIROMETRY GENERIC (SCAN ORDER) (04/30/2025) 04/30/2025 Result [facility] Scanned SCANNING Final Resu lt * BONE DENSITY/DEXA (03/10/2025 11:11 AM CDT) Anatomical Region Laterality Modality Bone Bone Density 03/13/2025 10:4 9 PM CDT Impressions 03/13/2025 10:51 PM CDT Impression: The bone mineral density is within normal limits. Ordered By: KARISSA CARO Interpreted By: Elvis De La Rosa DO, 03/13/2025 10:49 PM Narrative 03/13/2025 10:[address] [facility] [address] [place] [address] Examination: DEXA Bone densitometry Clinical history: Postmenopausal. Osteoporosis screening. Technique: DEXA bone mineral density evaluation was performed in the AP projection over the lumbar spine and over both hips in the AP projection utilizing standard imaging techniques. COMPARISON: None. Assessment: The BMD measured at the AP spine L1-L4 is 1.254 g/cm2 with a T-score of 1.9 and a Z-Score of 3.0. The BMD of the total left femur is 0.945 g/cm2, the femoral neck measures 0.743 g/cm2, with a T-score of -1.0 and a Z-Score of 0.1. The BMD of the total right femur is 0.957 g/cm2, the femoral neck measures 0.756 g/cm2, with a T-score of -0.8 and a Z-Score of 0.2. Based upon the above measurements, the patient has normal bone mineral density. FRAX not reported as the bone mineral density values fall within normal limits. Based on these results, a followup exam is recommended in 3-5 years or sooner if clinically indicated. Procedure Note Elvis De La Rosa DO - 03/13/2025 [facility] [address] [facility] [place] [address] Examination: DEXA Bone densitometry Clinical history: Postmenopausal. Osteoporosis screening. Technique: DEXA bone mineral density evaluation was performed in the APprojection over the lumbar spine and over both hips in the AP projectionutilizing standard imaging techniques. COMPARISON: None. Assessment: The BMD measured at the AP spine L1-L4 is 1.254 g/cm2 with a T-score of1.9 and a Z-Score of 3.0. The BMD of the total left femur is 0.945 g/cm2, the femoral neck measures0.743 g/cm2, with a T-score of -1.0 and a Z-Score of 0.1. The BMD of the total right femur is 0.957 g/cm2, the femoral neck measures0.756 g/cm2, with a T-score of -0.8 and a Z-Score of 0.2. Based upon the above measurements, the patient has normal bone mineraldensity. FRAX not reported as the bone mineral density values fall within normallimits. Based on these results, a followup exam is recommended in 3-5 years orsooner if clinically indicated. Impression: The bone mineral density is within normal limits. Ordered By: KARISSA CARO Interpreted By: Elvis De La Rosa DO, 03/13/2025 10:49 PM us Karissa Caro DO DEXA Final Re sult * MAMMOGRAM GENERIC (SCAN ORDER) (11/10/2024) Anatomical Region Laterality Modality Other 11/10/2024 us [...] - 08/27/2024 8:21 AM CDT Performed at: [facility] [id number] Program Administrator: Silvano Solitario PhD, Phone: [phone] us Karissa Caro DO LABORATORY Final Re sult Performing Organization Address [facility] Co de Phone Number [id number] [address] [place] [address] [facility] 1 * PAP SMEAR (12/27/2021) 12/27/2021 Narrative 12/27/2021 Ordered by an unspecified provider. us Documents Scanned SCANNING Final Result * COLONOSCOPY (10/11/2020) us Documents Scanned SCANNING Final Result Performing Organization Address City/[facility] Co de Phone Number [facility] ONBASE from Last 3 Months or Most Recently Relevant to Health Maintenance Insurance MEDICARE [facility] MEDICARE HUMAN Care Teams Highway Safety Engineer Relationship Specialty Start Date End Date Karissa Caro DO [address] [place] [id number] PCP - General FAMILY PRACTICE 03/15/22 Nena Holland, RN [address] [place] [address] Opening Machine Cleaner (Ambulatory) REGISTERED NURSE 03/17/22 Bonifacio Easton MD [facility] [place] [address] PULMONARY DISEASE 08/29/22
--- OUTSIDE RECORDS SUMMARY | 2025-06-07 11:08 | XMS_ITS | Encounter Summary ---
Author Organization [facility] Address [address] [place] [address] Care Team Providers Care Consulting Intern Name Role Phone Theodore Zamora DO Primary Care Provider + Nena Holland RN Unavailable [phone] Bonifacio Easton MD Unavailable Encounter Details Date Type Department Care Team (Late st Contact Info) Description 04/11/2023 MyChart Message Enc [facility] Family & Internal Medicine [facility] [address] [place] [address] Theodore Zamora DO [address] [place] [address] Port surgery. Social History Tobacco [...] Sex Assigned at Female 11/26/2024 1:20 PM VISUAL JOURNALIST Legal Sex Female 5:37 PM CDT Gender Identity Female 11/26/2024 1:20 PM VISUAL JOURNALIST Sexual Orientation Not on file Occupation Industry [...] 1:[address] [place] [address] [place] [address] Theodore Zamora, DO [address] [place] [address] 09/15/2025 1:00 PM VISUAL JOURNALIST Office Visit [facility] Family & Internal Medicine - [place] [address] [place] [phone] Theodore Zamora, DO [address] [place] [address] documented as of this encounter Goals Goal [...] care or ER. 01/24/23: Patient seen by (Crosscutter) on 01/10/23 and will f/u on 03/28/23. [...] documented as of this encounter Care Teams Consulting Intern Relationship Specialty Start Date End Date Theodore Zamora DO [address] [place] [address] PCP - General FAMILY PRACTICE 03/15/22 Nena Holland RN [address] [place] [address] Rec Therapist (Ambulatory) REGISTERED NURSE 03/17/22 Bonifacio Easton MD [address] [place] [address] PULMONARY DISEASE 08/29/22 documented as of this encounter
--- OUTSIDE RECORDS SUMMARY | 2025-06-07 11:08 | XMS_ITS | Encounter Summary ---
Author Organization [facility] Address [facility] [place] [address] Care Team Providers Care Diesel Tractor Engine Mechanic Name Role Phone Graciela Artis MD Primary Care Provider [phone] Derian Gilliam MD Unavailable [phone] Theodore Zamora DO Primary Care Provider + Nena Holland RN Unavailable [phone] Bonifacio Easton MD Unavailable Encounter Details Date Type Department Care Team (Late st Contact Info) Description 04/11/2019 Abstract [facility] at [address] [address] Melo Patino MA Social History Tobacco Use Types Packs/Day Years Used Date Smoking Tobacco: Never Smokeless Tobacco: Never Alcohol Use Standard Drinks/Week Comments Yes 0 (1 standard drink = 0.6 oz pur e alcohol) occ Comments Unknown Sex and Gender Information Value Date Recorded Sex Assigned at Female 11/26/2024 1:20 PM BAKING FACTORY WORKER Legal Sex Female 5:37 PM CDT Gender Identity Female 11/26/2024 1:20 PM BAKING FACTORY WORKER Sexual Orientation Not on file Occupation Industry Job Start Date Job End Date unemployed Not on file Not on file Not on file documented as of this encounter Plan of Treatment Upcoming Encounters Date Type Department Care Team (Late st Contact Info) Description 06/10/2025 1:[address] [facility] [address] [place] [address] SeraJosieTheodore P, DO [address] [place] [address] 09/15/2025 1:00 PM BAKING FACTORY WORKER Office Visit [facility] Family & Internal Medicine - [place] [address] [place] [phone] Billgeovanny Theodore P, DO [address] [place] [address] documented as of this encounter Procedures Procedure [...] Final Result * CBC (OUTSIDE LAB) (12/25/2018) Pathologist [facility] WBC 9.5 HGB 12.7 HCT 37.9 PLT 454 12/25/2018 [facility] Abstract LAB-OUTSIDE/ABSTRACTED Final Result * VITAMIN D, 25 OH (12/25/2018) Pathologist [facility] VITAMIN D 25 HYDROXY S/P/B 6 12/25/2018 [facility] Abstract LABORATORY Final Result * ESR (OUTSIDE LAB) (12/25/2018) Pathologist [facility] SED RATE 29 0 - 30 mm/hr 12/25/2018 [facility] Abstract LAB-OUTSIDE/ABSTRACTED Edite d Result - Final * FERRITIN (12/25/2018) Pathologist [facility] FERRITIN 11 12/25/2018 us [facility] Abstract LABORATORY Edited Resul t - Final * C-REACTIVE PROTEIN (12/25/2018) Pathologist [facility] CRP 7.3 12/25/2018 [facility] Abstract LABORATORY Edited Resul t - Final * THYROID STIM HORMONE, TSH (12/25/2018) Pathologist [facility] TSH 1.15 12/25/2018 us Doc [facility] Abstract LABORATORY Edited Resul t - Final documented in this encounter Visit Diagnoses Not on filedocumented in this encounter Care Teams Diesel Tractor Engine Mechanic Relationship Specialty Start Date End Date Graciela Artis MD [facility] [address] [place], [place] [id number] PCP - General FAMILY PRACTICE 02/19/19 03/14/22 Theodore Zamora DO [address] [place] [address] PCP - General FAMILY PRACTICE 03/15/22 Derian Gilliam MD [facility]. [address] [address] [place] Small Appliance Assembly Supervisor CARDIOVASCULAR DISEASE 03/17/19 03/14/22 Nena Holland RN [address] [place] [address] Stuffer (Ambulatory) REGISTERED NURSE 03/17/22 Bonifacio Easton MD [address] [place] [address] PULMONARY DISEASE 08/29/22 documented as of this encounter
--- OUTSIDE RECORDS SUMMARY | 2025-06-07 11:08 | XMS_ITS | Encounter Summary ---
Author Organization [facility] Address [address] [place] [address] Care Team Providers Care Manager Wastewater Name Role Phone Theodore Zamora DO Primary Care Provider + Nena Holland RN Unavailable [phone] Bonifacio Easton MD Unavailable Encounter Details Date Type Department Care Team (Late Contact Info) Description 04/25/2023 MyChart Message Enc [facility] - [facility] [address] [place], [place] [phone] [place], [facility] Provider Air Quality Message Social History Tobacco [...] Sex Assigned at Female 11/26/2024 1:20 PM FACULTY ADMINISTRATOR Legal Sex Female 5:37 PM CDT Gender Identity Female 11/26/2024 1:20 PM FACULTY ADMINISTRATOR Sexual Orientation Not on file Occupation Industry Job Start Date Job End Date unemployed Not on file Not on file Not on file documented as of this encounter Plan of Treatment Upcoming Encounters Date Type Department Care Team (Late st Contact Info) Description 06/10/2025 1:30 PM CD[place] [address] [place], [place] [phone] Theodore Zamora DO [address] [place] [address] 09/15/2025 1:00 PM FACULTY ADMINISTRATOR Office Visit [facility] Family & Internal Medicine - [place] [address] [place] [address] Theodore Zamora DO [address] [place] [address] documented as of this encounter Goals Goal [...] care or ER. 01/24/23: Patient seen by (Probation Manager) on 01/10/23 and will f/u on 03/28/23. [...] as of this encounter Care Teams Manager Wastewater Relationship Specialty Start Date End Date Theodore Zamora DO [address] [place] [address] PCP - General FAMILY PRACTICE 03/15/22 Nena Holland, RN [facility] [place] [address] Mobile Paint Specialist (Ambulatory) REGISTERED NURSE 03/17/22 Bonifacio Easton MD [address] [place] [address] PULMONARY DISEASE 08/29/22 documented as of this encounter
--- OUTSIDE RECORDS SUMMARY | 2025-06-07 11:08 | XMS_ITS | Encounter Summary ---
Author Organization [facility] Address [address] [place] [address] Care Team Providers Care It Intern Name Role Phone Theodore Zamora DO Primary Care Provider + Nena Holland RN Unavailable [phone] Bonifacio Easton MD Unavailable Encounter Details Date Type Department Care Team (Late st Contact Info) Description 05/15/2023 MyChart Message Enc [facility] Family & Internal Medicine [facility] [address] [place] [address] Theodore Zamora DO [address] [place] [address] Gyno biopsy Social History Tobacco [...] Sex Assigned at Female 11/26/2024 1:20 PM CUT OFF OPERATOR SCORER Legal Sex Female 5:37 PM CDT Gender Identity Female 11/26/2024 1:20 PM CUT OFF OPERATOR SCORER Sexual Orientation Not on file Occupation Industry [...] Description 06/10/2025 1:[address] [place] [address] [place] [address] Theodore Zamora DO [address] [place] [address] 09/15/2025 1:00 PM CUT OFF OPERATOR SCORER Office Visit [facility] Group Family & Internal Medicine - [address] [address] Theodore Zamora DO [address] [place] [address] documented as of this encounter Goals Goal [...] care or ER. 01/24/23: Patient seen by (Hot Dipper) on 01/10/23 and will f/u on 03/28/23. [...] documented as of this encounter Care Teams It Intern Relationship Specialty Start Date End Date Theodore Zamora DO [address] [place] [address] PCP - General FAMILY PRACTICE 03/15/22 Nena Holland RN [address] [place] [address] Shelter Case Manager (Ambulatory) REGISTERED NURSE 03/17/22 Bonifacio Easton MD [address] [place] [address] PULMONARY DISEASE 08/29/22 documented as of this encounter
--- OUTSIDE RECORDS SUMMARY | 2025-06-07 11:09 | XMS_ITS | Encounter Summary ---
Author Organization [facility] [place] [address] Care Team Providers Care Analytics Associate Name Role Phone Sera Theodore Jesus DO Primary Care Provider + Nena Holland RN Unavailable [phone] Bonifacio Easton MD Unavailable Encounter Details Date Type Department Care Team (Late st Contact Info) Description 12/24/2024 College Snack Attackt Message Enc [facility] [address] [address] Patel Garay MD [address] [place] [address] scan Social History Tobacco Use Types Packs/Day Years [...] place to sleep or slept in a custodial (including now)? No 07/30/2023 Comments No Sex and Gender Information Value Date Recorded Sex Assigned at Female 11/26/2024 1:20 PM FUMIGATOR AND STERILIZER Legal Sex Female 5:37 PM CDT Gender Identity Female 11/26/2024 1:20 PM FUMIGATOR AND STERILIZER Sexual Orientation Not on file Occupation Industry Job Start Date Job End Date unemployed Not on file Not on file Not on file documented as of this encounter Plan of Treatment Upcoming Encounters Date Type Department Care Team (Late st Contact Info) Description 06/10/2025 1:[address] [facility] [address] [place] [address] Theodore Zamora DO [address] [place] [address] 09/15/2025 1:00 PM FUMIGATOR AND STERILIZER Office Visit [facility] Family & Internal Medicine [facility] [address] [place] [address] Theodore Zamora DO [address] [place] [address] documented as of this encounter Goals Goal [...] care or ER. 01/24/23: Patient seen by (Sheet Metal Smith) on 01/10/23 and will f/u on 03/28/23. [...] Total Score: 0 12/05/19 25 1:07 PM FUMIGATOR AND STERILIZER documented as of this encounter Care Teams Analytics Associate Relationship Specialty Start Date End Date Theodore Zamora DO [address] [place] [phone] PCP - General FAMILY PRACTICE 03/15/22 Nena Holland RN [address] [place], [place] [address] Fermenter Helper (Ambulatory) REGISTERED NURSE 03/17/22 Bonifacio Easton MD [address] [place], [place] [address] PULMONARY DISEASE 08/29/22 documented as of this encounter
[2025-06-07 11:11] VITALS: BP 135/80; PULSE 97; RESP 20; TEMP 36.5; O2SAT 95
--- OUTSIDE RECORDS SUMMARY | 2025-06-07 11:27 | XMS_ITS | Clinical Summary ---
Author Organization [facility] Address [address] [place] [address] Care Team Providers Care Research Microbiologist Name Role Phone Theodore Zamora Primary Care [...] 1 tablet (1 mg total) by mouth chemical production technician before breakfast 4 Active naloxone (NARCAN) 4 [...] 1 tablet (50 mcg total) by mouth chemical production technician before breakfast Sun, Wed, and Sun Active [...] 01/2024 Assessment & Plan (09/01/2024 11:02 AM TAR HEEL): Chronic, stable reviewed and discussed patient recent thyroid lab results Recommend to continue current dose of Unithroid and liothyronine Follow-up in 1 year Vitamin B12 deficiency 09/01/2024 Assessment & Plan (09/01/2024 11:05 AM TAR HEEL): Chronic, Unknown status Patient currently on replacement therapy Recheck levels and further plans based on it Vitamin D deficiency 09/01/2024 Assessment & Plan (09/01/2024 11:05 AM TAR HEEL): Chronic, Unknown status Patient currently on replacement [...] on file Legal Sex Female 9:35 AM TAR HEEL Gender Identity Female 03/03/2021 1:42 PM CDT Sexual Orientation Not on file Obstetrics History Last Filed Vital Signs Vital Sign Reading Time Taken Comments Blood Pressure 152/92 02/09/2025 10:56 AM CDT Pulse 93 02/09/2025 10:56 AM CDT Temperature 37.5 C (99.5 F) 12/26/2024 4:25 PM TAR HEEL Respiratory Rate 16 12/26/2024 4:25 PM TAR HEEL Oxygen Saturation 97% 02/09/2025 10:56 AM CDT Inhaled Oxygen Concentration - - Weight 104.3 kg (230 lb) 12/22/2024 2:00 PM TAR HEEL Height 170.2 cm (5' 7) 01/05/2025 12:50 PM CDT Body Mass Index 36.02 12/22/2024 2:00 PM TAR HEEL Plan of Treatment Health Maintenance Due Date [...] 12/07/2021, 08/24/2021 Medical Devices Implanted Type Area Sample Tester Device Identifier Shelf Expiration Date Model / Serial / Lot [employer]/C R Bard Mesh 30x30 Phasix Bard [id number] - Sn/A - [id number] Implanted:Qty : 1 on 12/22/2024 by Davide Catherine MD at [facility] Mesh N/A: Abdomen [employer]/C R Bard [id number] 06/25/2026 [id number] / N/A / [id number] Insurance MEDICARE [facility] [employer] LIFE MEDICARE [employer] LIFE MEDICARE Advance Directives For more information, please contact: [phone] * Full Code (Latest Code Status on File) Date Activated Date Inactivated Comments 12/22/2024 2:06 PM 12/26/2024 11:19 PM Care Teams Research Microbiologist Relationship Specialty Start Date End Date Theodore Zamora DO [address] [place] [address] PCP - General Family Medicine 03/20/24
--- OUTSIDE RECORDS SUMMARY | 2025-06-07 11:27 | XMS_ITS | Encounter Summary ---
Author Organization [facility] Address [address] [place] [address] Care Team Providers Care Mold Capper Name Role Phone Theodore Zamora DO Primary Care Provider + Nena Holland RN Unavailable [phone] Bonifacio Easton MD Unavailable Encounter Details Date Type Department Care Team (Late Contact Info) Description 07/25/2022 MyCMa-papeteriet Message Enc [facility] Family & Internal Medicine [facility] [address] [place] [address] Theodore Zamora DO [facility] [place] [address] Medication sent to [email or web address]. Social History Tobacco Use Types Packs/Day Years [...] Sex Assigned at Female 11/26/2024 1:20 PM FINAL ASSEMBLY INSPECTOR Legal Sex Female 5:37 PM CDT Gender Identity Female 11/26/2024 1:20 PM FINAL ASSEMBLY INSPECTOR Sexual Orientation Not on file Occupation Industry Job Start Date Job End Date unemployed Not on file Not on file Not on file documented as of this encounter Plan of Treatment Upcoming Encounters Date Type Department Care Team (Late st Contact Info) Description 06/10/2025 1:[address] [place] [address] [place] [address] Theodore Zamora DO [address] [place] [address] 09/15/2025 1:00 PM FINAL ASSEMBLY INSPECTOR Office Visit [facility] Family & Internal Medicine - [place] [address] [place] [address] Theodore Zamora, [address] [place] [address] documented as of this encounter Goals Goal [...] care or ER. 01/24/23: Patient seen by (Experimental Electronics Developer) on 01/10/23 and will f/u on 03/28/23. [...] documented as of this encounter Care Teams Mold Capper Relationship Specialty Start Date End Date Theodore Zamora DO [address] [place] [address] PCP - General FAMILY PRACTICE 03/15/22 Nena Holland RN [address] [place] [address] Brazer Crawler Torch (Ambulatory) REGISTERED NURSE 03/17/22 Bonifacio Easton MD [address] [place] [address] PULMONARY DISEASE 08/29/22 documented as of this encounter
--- OUTSIDE RECORDS SUMMARY | 2025-06-07 11:27 | XMS_ITS | Encounter Summary ---
Author Organization [facility] Address [address] [place] [address] Care Team Providers Care Grades 1 6 Tutor Name Role Phone Sera Theodore Jesus DO Primary Care Provider + Nena Holland RN Unavailable [phone] Bonifacio Easton MD Unavailable Encounter Details Date Type Department Care Team (Late st Contact Info) Description 03/23/2022 [email or web address] Message Enc [facility] Group Family & Internal Medicine [address] [address] [facility] Provider Previous PCP Social History Tobacco Use [...] Sex Assigned at Female 11/26/2024 1:20 PM SALES REPRESENTATIVE PRINTING SUPPLIES Legal Sex Female 5:37 PM CDT Gender Identity Female 11/26/2024 1:20 PM SALES REPRESENTATIVE PRINTING SUPPLIES Sexual Orientation Not on file Occupation Industry [...] 1:[address] [place] [address] [place] [address] Theodore Zamora DO [address] [place] [address] 09/15/2025 1:00 PM SALES REPRESENTATIVE PRINTING SUPPLIES Office Visit [facility] Group Family & Internal Medicine - [place] [address] [place] [address] Theodore Zamora DO [address] [place] [address] documented as of this encounter Goals Goal [...] care or ER. 01/24/23: Patient seen by (Mess Attendant) on 01/10/23 and will f/u on 03/28/23. Reduce Blood Pressure Lifestyle On track(2024 10:15 AM CDT) No Nena Holland, RN Note: Patient to monitor blood pressure weekly and report the onset of any changes. Patient will take medications as directed. documented as of this encounter Visit Diagnoses Not on filedocumented in this encounter Care Teams Grades 1 6 Tutor Relationship Specialty Start Date End Date Theodore Zamora DO [address] [place] [address] PCP - General FAMILY PRACTICE 03/15/22 Nena Holland RN [address] [place] [address] Disbursing Agent (Ambulatory) REGISTERED NURSE 03/17/22 Bonifacio Easton MD [address] [place] [address] PULMONARY DISEASE 08/29/22 documented as of this encounter
--- OUTSIDE RECORDS SUMMARY | 2025-06-07 11:27 | XMS_ITS | Continuity of Care Document ---
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 It does not include entries that were removed or entered in error. 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 BOTTLE Cancele d [id number] : 2023 0 Pharmac y Data Transac tion Service Facilit y benzonatate 100 mg oral capsule TAKE ONE CAPSULE THREE TIMES DAILY DIRECTED , # 270 EA, 3 total refill(s ), Acute Complet ed 01/09/20242023 270.0 Ambulat ory Pharmac y CEPHALEXIN (CEPHALEXIN MONOHYDRATE ), 500MG, CAPSULE, ORAL, AUROBINDO PHARM, 500 ea. BOTTLE Active [id number] 4 2023 14 Pharmac y Data Transac tion Service Facilit y CLOBETASOL PROPIONATE (clobetasol propionate) , 0.05 %, CREAM (G), TOPICAL, ENCUBE ETHICALS, 60 g TUBE Cancele d [id number] : 2023 0 Pharmac y Data Transac tion Service Facilit y CLOBETASOL PROPIONATE (clobetasol propionate) , 0.05 %, OINT. (G), TOPICAL, ENCUBE ETHICALS, 30 g TUBE Active [id number] 2023 60 Pharmac y Data Transac tion Service Facilit y FOLIC ACID (folic acid), 1 MG, TABLET, ORAL, CHARTWELL RX LL, 90 ea. BOTTLE Cancele d [id number] : 2023 0 Pharmac y Data Transac tion Service Facilit y guaiFENesin 600 mg oral tablet, extended release TAKE ONE TABLET BY MOUTH EVERY TWELVE HOURS NEEDED FOR COUGH, # 90 EA, 3 total refill(s ), Acute Complet ed 01/09/20242023 90.0 Ambulat ory Pharmac y HYDROCODONE -ACETAMINOP HEN (HYDROCODON E/ACETAMINO PHEN), 5MG-325MG, TABLET, ORAL, MALLINCKROD T PH, 500 ea. BOTTLE Active [id number] 2023 60 Pharmac y Data Transac tion Service Facilit y HYDROCODONE -ACETAMINOP HEN (HYDROCODON E/ACETAMINO PHEN), 5MG-325MG, TABLET, ORAL, MALLINCKROD T PH, 500 ea. BOTTLE Active [id number] 2023 60 Pharmac y Data Transac tion Service Facilit y Lamotrigine (Lamotrigin e), 200mg, Tablet, Oral, Aurobindo Pharm, 60 Ea. Bottle Active [id number] 2023 180 Pharmac y Data Transac tion Service Facilit y LIOTHYRONIN E SODIUM (liothyroni ne sodium), 5 MCG, TABLET, ORAL, SIGMAPHARM LABO, 90 ea. BOTTLE Active [id number] 4 2023 180 Pharmac y Data Transac tion Service Facilit y OLOPATADINE HCL (olopatadin e HCl), 0.1 %, DROPS, OPHTHALMIC, SOMERSET THERAP, 5 ml DROP BTL Cancele d [id number] : 2023 0 Pharmac y Data Transac tion Service Facilit y OLOPATADINE HCL (olopatadin e HCl), 0.1 %, DROPS, OPHTHALMIC, SOMERSET THERAP, 5 ml DROP BTL Cancele d [id number] : 2023 0 Pharmac y Data Transac [...] (tacrolimus ), 0.1 %, OINT. (G), TOPICAL, [employer] PHARMA, 30 g TUBE Active [id number] 2023 30 Pharmac y Data Transac tion Service Facilit y THEOPHYLLIN E ER (theophylli ne anhydrous), 300 MG, TAB ER 12H, ORAL, TEVA PHARM, 100 ea. BOTTLE Cancele d [id number] : 2023 0 Pharmac y Data Transac tion Service Facilit y THEOPHYLLIN E ER (theophylli ne anhydrous), 300 MG, TAB ER 12H, ORAL, TEVA PHARM, 100 ea. BOTTLE Active [id number] 2023 180 Pharmac y Data Transac [...] ORAL, LUCILA LABORATO, 100 ea. BOTTLE Active [id number] 2023 120 Pharmac y Data Transac tion Service Facilit y XARELTO (RIVAROXABA N), 20 MG, TABLET, ORAL, RUDDY PHARM., 30 ea. BOTTLE Active [id number] 4 2023 30 Pharmac y Data Transac [...] Drug allergy (disorder ) Unknown active [address] [place] [address] Dre B ([facility]) aspirin Drug allergy Anaphylaxis Severe Active 4 ANAPHYLAXIS (PER 3066 03-18-03) Ambulator y Pharmacy IBUPROFEN (IBUPROFEN ) Drug allergy (disorder ) Unknown active [address] [place] [address] Dre [facility] ibuprofen Drug allergy Unknown Unknown Active 4 per 3066 (3-6-03) Ambulator y Pharmacy NSAID Drug allergy (disorder ) Unknown active [address] [place] [address] Dre [facility]) NSAIDs Drug allergy Anaphylaxis Severe Active ASA Ambulato r y Pharmacy OTHER Drug allergy (disorder ) Unknown active [address] [place], [place] [address]B ([facility]) Immunizations Combined list of available immunizations from the Department of Defense and Veterans Affairs facilities. Immunization Series Date Given Administered By Site Reaction Lot Number CVX Code Drug Manager Hydraulic Status Comments Source Tdap 2021 ALUL, () Not Given Tdap DoD COVID-19, mRNA, LNP-S, PF, 30 mcg/0.3 mL dose, abdirahman-sucrose 2021 TURABELIDZE,G EORGE [employer] [place] (PFR) Not Given COVID-19, mRNA, LNP-S, [...] PF, 30 mcg/0.3 mL dose 2020 MAGNO, [employer] [place] (PFR) Not Given COVID-19, mRNA, LNP-S, PF, 30 mcg/0.3 mL dose DoD COVID-19, mRNA, LNP-S, PF, 100 mcg or 50 mcg dose 2020 MACIEL [facility] [employer] (MOD) Not Given COVID-19, mRNA, LNP-S, PF, 100 mcg or 50 mcg dose DoD Influenza, injectable, MDCK, preservative free, quadrivalent 2019 ALUL, () Not Given Influenza , injectabl e, MDCK, preservat mario free, quadrival ent DoD influenza virus vaccine, live 2009 [id number] [employer] [facility] t ed influenza virus vaccine, live 07/19/10 Given Ambulat ory Pharmac y influenza virus vaccine, live, attenuated, for intranasal use 1 2009 Unknown, Provider [id number] 111 [employer] (MED) complet ed influenza virus vaccine, live, attenuate d, for intranasa l use DoD Novel influenza-H1N 1-09, injectable 2009 zzLef t Arm [id number] 1 127 [employer]is [employer] complet ed Novel influenza -D5X3-91, injectabl e 11/01/09 Given Ambulat ory Pharmac y Novel influenza-H1N 1-09, injectable 1 2009 Unknown, Provider [id number] 1 127 Novartis CohesiveFT [place]. (NOV) complet ed Novel influenza -M2L2-55, injectabl e DoD influenza virus vaccine,split 2008 [...] hepatitis A-hepatitis B vaccine 2003 zChantel Arm [id number] 6 104 GlaxoSmithKli ne complet ed hepatitis A-hepatit is B vaccine 03/07/04 Given Ambulat ory Pharmac y hepatitis A and hepatitis B vaccine 3 2003 Unknown, Provider [id number] 6 104 SmithKline (SKB) complet ed hepatitis A and hepatitis B vaccine DoD hepatitis A-hepatitis B vaccine 2002 zzRig Arm [id number] 6 104 GlaxoSmithKli ne complet ed hepatitis A-hepatit is B vaccine 09/30/03 Given Ambulat ory Pharmac y hepatitis A and hepatitis B vaccine 2 2002 Unknown, Provider [id number] 6 104 [employer]Kline (SKB) complet ed hepatitis A and hepatitis B vaccine DoD influenza virus vaccine, whole virus 2002 zzLef t Arm [id number] 16 sanofi pasteur complet ed influenza virus vaccine, whole virus 08/19/03 Given Ambulat ory Pharmac y hepatitis A-hepatitis B vaccine 2002 zzLef t Arm [id number] 6 104 GlaxoSmithKli ne complet ed hepatitis A-hepatit is B vaccine 08/19/03 Given Ambulat ory Pharmac y influenza virus vaccine, whole virus 1 2002 Unknown, Provider [id number] 16 Sanofi Pasteur ([facility]) complet ed influenza virus vaccine, whole virus DoD hepatitis A and hepatitis B vaccine 1 2002 Unknown, Provider [id number] 6 104 Smithine (SKB) complet ed hepatitis [...] vaccine, whole virus 2001 zzLef t Arm [id number] 16 sanofi pasteur complet ed influenza virus vaccine, whole virus 10/03/02 Given Ambulat ory Pharmac y influenza virus vaccine, whole virus 1 2001 Unknown, Provider [id number] 16 Sanofi Pasteur ([facility]) complet ed influenza virus vaccine, whole virus DoD tuberculin purified protein derivative 2001 zef t Arm [id number] 96 sanofi pasteur complet ed Patient Tolerance : Negative Ambulat ory Pharmac y tuberculin skin test; purified protein derivative solution, intradermal 1 2001 Unknown, Provider [id number] 96 Sanofi Pasteur ([facility]) complet ed tuberculi n skin test; purified protein derivativ e solution, intraderm al DoD tuberculin purified protein derivative 2000 [id number] 96 [facility] complet ed tuberculi n purified protein derivativ e 07/02/01 Given Ambulat ory Pharmac y tuberculin purified protein derivative 1998 [id number] 96 [facility] complet ed tuberculi n purified protein derivativ e 07/25/99 Given Ambulat ory Pharmac y tetanus-dipht h toxoids (Td) adult/adol 1998 [id number] 09 [facility] complet ed tetanus-d iphth toxoids (Td) adult/ado l 07/25/99 Given Ambulat ory Pharmac y tetanus and diphtheria toxoids, adsorbed, preservative free, for adult use (2 Lf of tetanus toxoid and 2 Lf of diphtheria toxoid) 1 1998 Unknown, Provider [id number] Jimmy (CON) complet ed tetanus and [...] ADM Date DC Date Status Disposition Source [address] [place] [address] Dre [facility])([facility] Flight Medicine ) OUTPATIENT [id number] follow- up JERRICA MITCHELL 04/27 Released w/o Limitations [facility] Dre [facility])(S cott Flight Medicin e Tm) [address] [place] [address] Dre [facility])(Ndo tt Flight Medicine ) TELE CONSULT [phone] weapons engineer consult JERRICA MITCHELL 05/[address] [place] [address] Group Dre [facility])(S InVisioneer Flight Medicin e Tm) [address] [place] [address] Dre [facility])(All ergy Resource Sharing) TELE CONSULT [id number] ANTONIO COFFMAN 07/[address] [place] [address] Dre [facility])(A llergy Resourc e Sharing ) [address] [place] [address] Dre [facility])(All ergy Resource Sharing) TELE CONSULT [id number] ANTONIO COFFMAN 07/06 375 [employer] Dre [facility])(A llergy Resourc e Sharing ) [address] [place] [address] Dre [facility])(All ergy Resource Sharing) TELE CONSULT [id number] Lab results ANTONIO COFFMAN 07/11 [facility] Dre [facility] ([facility])(A llergy Resourc e Sharing ) [address] [place] [address] Dre [facility]All ergy Resource Sharing) TELE CONSULT [id number] lab results [phone] ANTONIO COFFMAN 07/25 [facility] Dre [facility] ([facility])(A llergy Resourc e Sharing ) [address] [place] [address] Dre [facility]All ergy) TELE CONSULT [phone] elias bautista. ELIO HERRON 07/[address] [place] [address] Group Dre [facility]A llergy) [address] [place] [address] Dre [facility])(Fam polo Practice Non-GME FHI1) OUTPATIENT [id number] naf physica l/ph#[phone] JIM DURÁN 07/09 Released w/o Limitations [address] [place] [address] Dre [facility])(F amily Practic e Non-GME FHI1) [address] [place] [address] Dre [facility])([facility] Flight Medicine ) TELE CONSULT [phone] NAF Physica l - ALIREZA Byrne 06/02 Referred for Appointment [address] [place] [address] Dre [facility]S [facility] Flight Medicin e Tm) [address] [place] [address] Dre [facility])([facility] Medicine ) OUTPATIENT [id number] NAF Physica l OCHOA KIRAN 06/23 Released w/o Limitations [address] [place] [address] Dre [facility])(S [facility] Flight Medicin e Tm) Procedures Combined list of: 1) Procedures from Department of Veterans Affairs facilities [facility], not all VA non-surgical procedures are included; 2) All procedures from the Department of Defense facilities. Procedure Procedure Type Code Date Perfomer Comments Sourc e No data available for this section Ambulatory Pharmacy Extensive Color Vision Testing Extensive Color Vision Testing 71909 0 QIANA, OCHOA Oro DoD Screening Test Of Visual Acuity, Quantitative, Bilateral Screening Test Of Visual Acuity, Quantitative, Bilateral 79628 0 QIANA, OCHOA E DoD Threshold Audiogram (Pure Tone) Threshold Audiogram (Pure Tone) 44963 0 QIANA, OCHOA Oro DoD BRONCHODILATION RESPONSIVENESS, [place] [address], PRE- AND POST-BRONCHODILATOR ADMINISTRATION 1 DoD INTRACUTANEOUS [...] LOOP 3 DoD BRONCHODILATION RESPONSIVENESS, [place] [address], PRE- AND POST-BRONCHODILATOR ADMINISTRATION 3 DoD IPRATROPIUM [...] of Defense and Veterans Affairs (VA).VA Functional Higdon Measurement (FIM) Scale: 1 = Total Assistance (Subject = 0% +), 2 = Maximal Assistance (Subject = 25% +), 3 = Moderate Assistance (Subject = 50% +), 4 = Minimal Assistance (Subject = 75% +), 5 = Supervision, 6 = Modified Higdon (Device), 7 = Complete Higdon (Timely, Safely). Assessment Date/Time Source Assessment Type Assessment Skill Assessment Score Assessment Details No data available for this section
--- OUTSIDE RECORDS SUMMARY | 2025-06-07 11:27 | XMS_ITS | Encounter Summary ---
Author Organization [facility] Address [facility] [place] [address] Care Team Providers Care Filter Screen Cleaner Name Role Phone Theodore Zamora DO Primary Care Provider + Nena Holland RN Unavailable [phone] Bonifacio Easton MD Unavailable Encounter Details Date Type Department Care Team (Late st Contact Info) Description 06/21/2022 MyChart Message Enc [facility] Medical Group Family & Internal Medicine [facility] [address] [place] [address] Theodore Zamora DO [facility] [place] [address] Medication. Social History Tobacco Use [...] Sex Assigned at Female 11/26/2024 1:20 PM ADVANCED PRACTICE REGISTERED NURSE Legal Sex Female 5:37 PM CDT Gender Identity Female 11/26/2024 1:20 PM ADVANCED PRACTICE REGISTERED NURSE Sexual Orientation Not on file Occupation Industry [...] 3:42 PM CDT We do not have [facility] ID. ENT will order ID if [...] And if so is there on at [facility]. I need 2 refills on medications. My Hydrocodone. And my Amlodipine. To Man in [place]. Thank you. Tracey Lambert. [phone] documented in this encounter Plan of Treatment Upcoming Encounters Date Type Department Care Team (Late st Contact Info) Description 06/10/2025 1:30 PM CDT [place] [address] [place] [address] Theodore Zamora DO [address] [place] [address] 09/15/2025 1:00 PM ADVANCED PRACTICE REGISTERED NURSE Office Visit [facility] Medical Group Family & Internal Medicine [facility] [address] [place] [address] Theodore Zamora DO [address] [place] [address] documented as of this encounter Goals Goal [...] care or ER. 01/24/23: Patient seen by (Manufacturing Applications Engineer) on 01/10/23 and will f/u on 03/28/23. [...] documented as of this encounter Care Teams Filter Screen Cleaner Relationship Specialty Start Date End Date Theodore Zamora DO [address] [place] [id number] PCP - General FAMILY PRACTICE 03/15/22 Nena Holland RN [address] [place], [place] [address] Transformer Shop Supervisor (Ambulatory) REGISTERED NURSE 03/17/22 Bonifacio Easton MD [address] [place] [address] PULMONARY DISEASE 08/29/22 documented as of this encounter
[2025-06-07 11:38] LABS: Add Urine Microscopic? YES; Appearance Urine Cloudy (Clear); Glucose Urine UA Negative (Negative); Leukocyte Esterase Ur 3+ LEU/UL (Negative); Need Manual Microscopic Reviewed; Nitrate Urine Positive (Negative); Non Pathogenic Casts 0-2; Specific Grav Ur 1.017 (1.001-1.035)
[2025-06-07 11:53] LABS: Alanine Aminotransferase 17 U/L (6-35); Albumin Level 4.4 g/dL (3.5-5.1); Alkaline Phosphatase 72 U/L (38-126); Anion Gap 12 mmol/L (4-12); Aspartate Amino Transferase 27 U/L (14-36); Bilirubin,Total 0.4 mg/dL (0.2-1.3); Blood Urea Nitrogen 14 mg/dL (7-17); Calcium 9.3 mg/dL (8.4-10.2); Carbon Dioxide 21 mmol/L (22-30); Chloride 104 mmol/L (98-107); Estimated CRCL calculation 76 ml/min; Estimated Glomerular Filt Rate > 60; Glucose 103 mg/dL (65-110); Potassium 3.7 mmol/L (3.4-5.0); Sodium 137 mmol/L (137-145); Total Protein 8.7 g/dL (6.3-8.2)
[2025-06-07 12:23] LABS: Hematocrit 38.6 % (37.0-47.0); Hemoglobin 12.5 g/dL (12.0-15.0); Immature Granulocyte Percent A 0.2 % (0-0.5); Lymphocytes Absolute Auto 2.62 K/mm3 (0.9-3.2); Mean Corpuscular HGB Conc 32.4 g/dl (32-36); Mean Corpuscular Hemoglobin 29.1 pg (26-34); Mean Corpuscular Volume 89.8 fl (80-100); Nucleated Red Blood Cells Absolute Auto 0.000 K/mm3 (0.0-0.012); Nucleated Red Blood Cells Perc 0.0 % (0.0-0.2); Platelet Count Result 360 k/mm3 (150-375); Red Blood Count 4.30 M/mm3 (4.2-5.4); White Blood Count 8.1 K/mm3 (4.5-10.0)
--- NOTE | 2025-06-07 12:59 | ED_ITS ---
HPI - General Adult General Chief complaint: Urogenital-Female Stated complaint: UTI symptoms Time Seen by Provider: 06/07/25 11:08 History of Present Illness HPI narrative: Patient is a 54-year-old female who presents ER with concerns for UTI. She has had it for approximately 10 days. She was started on cefdinir few days ago. She feels like she should getting better but she is still having dysuria with blood in her urine. Reports subjective fevers. No body aches. Related Data Home Medications ?Medication ?Instructions ?Recorded ?Confirmed ?Last Taken ?Type albuterol sulfate 2.5 mg/3 mL 2.5 mg inhalation Q6H PRN Dyspnea 09/03/19 03/31/24 08/24/23 09:00 History (0.083 %) solution for nebulization amlodipine 10 mg tablet 10 mg PO DAILY 09/03/19 03/31/24 08/24/23 09:00 History epinephrine 0.3 mg/0.3 mL 0.3 mg subcut DIRECTED PRN 09/03/19 03/31/24 Unknown History injection, auto-injector Anaphylaxis ergocalciferol (vitamin D2) 1,250 50,000 unit PO WEEKLY 09/03/19 03/31/24 08/17/23 09:00 History mcg (50,000 unit) capsule furosemide 40 mg tablet 40 mg PO DAILY 09/03/19 03/31/24 08/24/23 09:00 History guaifenesin 600 mg tablet, 600 mg PO BID PRN Cough 09/03/19 03/31/24 Unknown History extended release 12 hr (Mucinex) lamotrigine 200 mg tablet 200 mg PO BID 09/03/19 03/31/24 08/24/23 09:00 History omeprazole 20 mg capsule,delayed 60 mg PO BID 09/03/19 03/31/24 08/24/23 09:00 History release ondansetron HCl 4 mg tablet 4 mg PO Q8H PRN Nausea And Vomiting 09/03/19 03/31/24 11/13/21 History rivaroxaban 20 mg tablet (Xarelto) 20 mg PO DAILY 09/03/19 03/31/24 03/03/24 History theophylline 300 mg 300 mg PO BID 09/03/19 03/31/24 08/24/23 09:00 History tablet,extended release,12 hr tiotropium bromide 18 mcg capsule 18 mcg inhalation DAILY 09/03/19 03/31/24 08/23/23 09:00 History with inhalation device (Spiriva with HandiHaler) mometasone-formoterol HFA 200 2 puff inhalation BID 11/03/19 03/31/24 08/24/23 09:00 History mcg-5 mcg/actuation aerosol inhaler (Dulera) fexofenadine 180 mg tablet 180 mg PO DAILY 11/04/20 03/31/24 08/24/23 09:00 History (Nneka Allergy) ramipril 5 mg capsule (Altace) 5 mg PO BID 11/04/20 03/31/24 08/24/23 09:00 History diphenhydramine HCl 25 mg capsule 50 mg PO Q28D 01/25/21 03/31/24 11/13/21 History (Allergy (diphenhydramine)) fluticasone propionate 110 1 puff inhalation BID 01/25/21 03/31/24 08/24/23 09:00 History mcg/actuation HFA aerosol inhaler (Flovent HFA) folic acid 1 mg tablet 1 mg PO QAM 03/02/23 03/31/24 08/24/23 07:00 History levothyroxine 25 mcg tablet 50 mcg PO QMWF 03/02/23 03/31/24 08/24/23 07:00 History (Unithroid) Ivig See Rx Instructions .Route .COMPLEX 04/04/23 03/31/24 07/28/23 09:00 History liothyronine 5 mcg tablet 5 mcg PO BID 05/02/23 03/31/24 08/24/23 09:00 History acetaminophen 325 mg tablet 650 mg PO Q6H PRN pain or fever 08/24/23 03/31/24 Unknown History (Tylenol) lansoprazole 15 mg capsule,delayed 15 mg PO BID 08/24/23 03/31/24 Unknown History release (Prevacid 24Hr) levothyroxine 25 mcg tablet 25 mcg PO QTUTHSASU 08/24/23 03/31/24 08/23/23 09:00 History (Unithroid) hydrocodone 5 mg-acetaminophen 325 1 tablet PO Q6-8H PRN pain 03/04/24 03/31/24 Unknown History mg tablet Allergies Allergy/AdvReac Type Severity Reaction Status Date / Time aspirin Allergy Severe anaphylaxis Verified 06/07/25 11:14 aztreonam Allergy Severe RASH Verified 06/07/25 11:14 ibuprofen Allergy Severe Anaphylaxis Verified 06/07/25 11:14 NSAIDS (Non-Steroidal Allergy Severe Anaphylactic Verified 06/07/25 11:14 Anti-Inflamma Shock shellfish derived Allergy Severe Swelling Verified 06/07/25 11:14 of Lip/Tongue/Throat adhesive Allergy Intermediate rash Verified 06/07/25 11:14 ciprofloxacin Allergy Intermediate Hives Verified 06/07/25 11:14 latex Allergy Intermediate Dyspnea Verified 06/07/25 11:14 nifedipine Allergy Intermediate Urticaria Verified 06/07/25 11:14 sulfamethizole Allergy Intermediate Urticaria Verified 06/07/25 11:14 terbinafine Allergy Intermediate Urticaria Verified 06/07/25 11:14 trimethoprim Allergy Intermediate Hives Verified 06/07/25 11:14 vancomycin Allergy Intermediate Rash Verified 06/07/25 11:14 PMFSH Past Medical History Medical History Degenerative arthritis of knee, bilateral Encounter for postoperative care Common variable immunodeficiency Irritable bowel IgM deficiency GI bleed Depression Anxiety Foot fracture, left Arthropathy of right knee Arthritis Fibromyalgia PCOS (polycystic ovarian syndrome) GERD (gastroesophageal reflux disease) Pulmonary embolism Asthma Emphysema of lung COPD (chronic obstructive pulmonary disease) DVT (deep venous thrombosis) HTN (hypertension) HLD (hyperlipidemia) Raynauds syndrome Colitis Dx 03 September 2019 Surgical History Surgical History History of hysteroscopy October of 2021 History of incision and drainage Removal of right subclavian port-a-cath and I&D of right chest abscess on 03/02/23. History of knee surgery x 2 right x 1 left H/O laminectomy History of ventral hernia repair (12/28/20) S/P laparoscopic-assisted sigmoidectomy (~03/2020) Performed due to: Stricture resulting in right ventral hernia H/O dilation and curettage History of endometrial ablation Hx of appendectomy H/O sinus surgery Hx of tonsillectomy Family History Family History Father Diabetes mellitus Hypertension Mother Rheumatoid arthritis Acute myocardial infarction Heart disease Hypertension Sibling Hypertension Diabetes mellitus Other Family history of gout Family history of obesity Family history unknown Social History Social History Social History: Surrogate medical decision maker: Hector Lambert, spouse. Code status: Full code. Smoking status: Never smoker Second hand tobacco smoke exposure: No Alcohol intake: current Drinks per week: 1 Alcohol use details: FEW A MONTH Substance use: never Substance use type: does not use Lack of Transportation: No Lack of Food: Never True Current Housing: I Have Housing Concerned About Future Housing: No Difficulty Paying Gas/Electric Bills: No Difficulty Paying for Meds: No Currently Unemployed: No Education: Associate Degree Difficulty w/ Childcare or Family Care: No Living arrangements: with family Spiritual care concerns: No Exam 2 Narrative: GENERAL: Well-appearing, well-nourished, and in no acute distress. HEAD: Normocephalic, atraumatic ENT: Mucous membranes moist. CHEST: Clear to auscultation. No respiratory distress. HEART: Regular rate and rhythm. Normal peripheral pulses. ABDOMEN: Soft, nontender, nondistended. No CVA tenderness. EXTREMITIES: Normal range of motion. No edema. SKIN: Warm, dry, no rash. NEURO: Alert and oriented x3. PSYCH: Normal mood and affect. Course Course Emergency Course: Discussed recent urine culture and allergy list. Patient will receive IV ceftriaxone here x1 and then be started on Macrobid. She is comfortable with this plan. Appropriate for discharge. Discussed lung nodule. Vital Signs Vital signs: Vital Signs Temperature 97.7 F 06/07/25 11:11 Pulse Rate 97 06/07/25 11:11 Respiratory Rate 20 06/07/25 11:11 Blood Pressure 135/80 06/07/25 11:11 Pulse Oximetry 95 06/07/25 11:11 Oxygen Delivery Room Air 06/07/25 11:11 Temperature 97.7 F 06/07/25 11:11 Pulse Rate 73 06/07/25 13:34 Respiratory Rate 18 06/07/25 13:34 Blood Pressure 143/87 H 06/07/25 13:34 Pulse Oximetry 98 06/07/25 13:34 Oxygen Delivery Room Air 06/07/25 11:11 Medical Decision Making Vital Signs Vital Signs: Vital Signs Temperature 97.7 F 06/07/25 11:11 Pulse Rate 97 06/07/25 11:11 Respiratory Rate 20 06/07/25 11:11 Blood Pressure 135/80 06/07/25 11:11 Pulse Oximetry 95 06/07/25 11:11 Oxygen Delivery Room Air 06/07/25 11:11 Temperature 97.7 F 06/07/25 11:11 Pulse Rate 73 06/07/25 13:34 Respiratory Rate 18 06/07/25 13:34 Blood Pressure 143/87 H 06/07/25 13:34 Pulse Oximetry 98 06/07/25 13:34 Oxygen Delivery Room Air 06/07/25 11:11 Lab Data 06/07/25 12:14 06/07/25 11:34 Labs: Lab Results 06/07/25 06/07/25 06/07/25 Range/Units 11:17 11:34 12:14 WBC 8.1 (4.5-10.0) K/mm3 RBC 4.30 (4.2-5.4) M/mm3 Hgb 12.5 (12.0-15.0) g/dL Hct 38.6 (37.0-47.0) % MCV 89.8 (80-100) fl MCH 29.1 (26-34) pg MCHC 32.4 (32-36) g/dl RDW 15.2 H (11.5-14.5) % Plt Count 360 (150-375) k/mm3 MPV 9.0 (7.4-10.4) fl Immature Gran % (Auto) 0.2 (0-0.5) % Neut % (Auto) 47.6 (45.5-73.1) % Lymph % (Auto) 32.3 (18.3-44.2) % [place] % (Auto) 6.7 (2.6-8.5) % Eos % (Auto) 12.3 H (0-4.4) % Baso % (Auto) 0.9 (0.2-1.2) % Lymph # (Auto) 2.62 (0.9-3.2) K/mm3 [place] # (Auto) 0.5 (0.1-0.6) K/mm3 Eos # (Auto) 1.0 H (0-0.3) K/mm3 Baso # (Auto) 0.1 (0.0-0.1) K/mm3 Abs Immat Gran (auto) 0.02 (0.00-0.031) K/mm3 Absolute Neuts (auto) 3.9 (1.3-6.7) K/mm3 Absolute Nucleated RBC 0.000 (0.0-0.012) K/mm3 Nucleated RBC % 0.0 (0.0-0.2) % Sodium 137 (137-145) mmol/L Potassium 3.7 (3.4-5.0) mmol/L Chloride 104 (98-107) mmol/L Carbon Dioxide 21 L (22-30) mmol/L Anion Gap 12 (4-12) mmol/L BUN 14 (7-17) mg/dL Creatinine 0.90 (0.7-1.0) mg/dL Estim Creat Clear Calc 76 ml/min Estimated GFR > 60 (59 - ) Glucose 103 (65-110) mg/dL Lactic Acid 0.7 (0.7-2.0) mmol/L Calcium 9.3 (8.4-10.2) mg/dL Total Bilirubin 0.4 (0.2-1.3) mg/dL AST 27 (14-36) U/L ALT 17 (6-35) U/L Alkaline Phosphatase 72 (38-126) U/L Total Protein 8.7 H (6.3-8.2) g/dL Albumin 4.4 (3.5-5.1) g/dL Urine Color Yellow (Yellow) Urine Appearance Cloudy H (Clear) Urine pH 6.0 (5.0-9.0) Ur Specific [place] 1.017 (1.001-1.035) Urine Protein 2+ H (Negative) mg/dL Urine Glucose (UA) Negative (Negative) mg/dL Urine Ketones Negative (Negative) mg/dL Ur Blood (Man) 2+ H (Negative) Urine Nitrate Positive H (Negative) Urine Bilirubin Negative (Negative) Urine Urobilinogen 0.2 (<2.0) mg/dL Add Ur Microanalysis Reviewed Leukocyte Esterase Rfl 3+ H (Negative) FAUSTO/UL Urine RBC 21-50 H (0-2) /hpf Urine WBC >100 H (0-3) /hpf Ur Squamous Epith Cells Occasional (Few) /hpf Urine Bacteria Rare /hpf Urine Casts 0-2 Imaging Data Radiologist's impression: ITS Impressions Abdomen/Pelvis CT 06/07/25 12:00 IMPRESSION: 1. No urolithiasis or acute intra-abdominal/pelvic process. 2. Slight increase in size but decrease in the solid component of a now 1.7 x 1.2 cm mixed solid and cavitary nodule at the left lower lobe. The decrease in the solid component favors a benign etiology likely sequela of chronic infection. Recommend additional 6 month follow-up noncontrast chest CT. Discharge Plan Discharge Clinical Impression: UTI (urinary tract infection) Patient Disposition: Home Condition: Stable Instructions: Urinary Tract Infection in Women (ED) Additional Instructions: You should return to the emergency department if you develop severe nausea and vomiting and are unable to keep liquids down, if you develop severe back/flank or stomach pain, or if your symptoms are not clearly improving at home. Patient Language: [place] Prescriptions: New nitrofurantoin monohyd/m-cryst [Macrobid] 100 mg capsule 100 mg PO Q12H 7 Days Qty: 14 0RF Rx Instructions: must administer with a meal/food No Action ofloxacin 0.3 % drops 1 drp EACH EYE QID 7 Days Qty: 5 0RF Dulera 200-5 mcg/actuation HFA aerosol inhaler 2 puff INHALATION BID fexofenadine [Nneka Allergy] 180 mg tablet 180 mg PO DAILY ramipril [Altace] 5 mg capsule 5 mg PO BID furosemide 40 mg tablet 40 mg PO DAILY lamotrigine 200 mg tablet 200 mg PO BID albuterol sulfate 2.5 mg /3 mL (0.083 %) solution for nebulization 2.5 mg inhalation Q6H PRN (Reason: Dyspnea) ondansetron HCl 4 mg tablet 4 mg PO Q8H PRN (Reason: Nausea And Vomiting) theophylline 300 mg tablet extended release 12 hr 300 mg PO BID amlodipine 10 mg tablet 10 mg PO DAILY Patient Comments: QAM omeprazole 20 mg capsule,delayed release(DR/EC) 60 mg PO BID ergocalciferol (vitamin D2) 50,000 unit capsule 50,000 unit PO WEEKLY Rx Instructions: takes on sunday epinephrine 0.3 mg/0.3 mL auto-injector 0.3 mg subcut DIRECTED PRN (Reason: Anaphylaxis) tiotropium bromide [Spiriva with HandiHaler] 18 mcg capsule, w/inhalation device 18 mcg INHALATION DAILY Xarelto 20 mg tablet 20 mg PO DAILY guaifenesin [Mucinex] 600 mg tablet extended release 12hr 600 mg PO BID PRN (Reason: Cough) Ivig See Rx Instructions .ROUTE .COMPLEX Patient Comments: Was going to recieve 08/25/2023 Rx Instructions: 70 G IV INFUSION Q28 DAYS liothyronine 5 mcg Tablet 5 mcg PO BID Rx Instructions: TAKE 1 TAB TWICE DAILY AROUND THE CLOCK cephalexin 500 mg capsule 500 mg PO Q12H Qty: 14 0RF diphenhydramine HCl [Allergy (diphenhydramine)] 25 mg Capsule 50 mg PO Q28D Patient Comments: Taken with IVIG fluticasone propionate [Flovent HFA] 110 mcg/actuation Hfa Aerosol Inhaler 1 puff INHALATION BID levothyroxine [Unithroid] 25 mcg tablet 50 mcg PO QMWF Patient Comments: MWF LUCAE CHANTEL DANIELLE 25MCG Rx Instructions: 50mg M, W, F. 25mg Chantel Downing, Asuncion Love. folic acid 1 mg tablet 1 mg PO QAM Rx Instructions: With Unthyroid levothyroxine [Unithroid] 25 mcg tablet 25 mcg PO QTUTHSASU acetaminophen [Tylenol] 325 mg Tablet 650 mg PO Q6H PRN (Reason: pain or fever) lansoprazole [Prevacid 24Hr] 15 mg Capsule,Delayed Release(Dr/Ec) 15 mg PO BID hydrocodone-acetaminophen 5-325 mg tablet 1 tablet PO Q6-8H PRN (Reason: pain) Follow-up/Referrals: Sera,DO Theodore [Primary Care Provider] - 1 Week
[2025-06-07] MEDS: cefTRIAXone 1 GM in SODIUM CHLORIDE 0.9% IV 50 ML 100 ML IVPB (13:32)
[2025-06-07 13:34] VITALS: BP 143/87; PULSE 73; RESP 18; O2SAT 98
== END 2025-06-07 14:15 | disposition home or self-care (01) ==
PROVIDERS: Emergency Provider Emergency Medicine; PCP Student in an Organized Health Care Education/Training Program
DX: N39.0 Urinary tract infection, site not specified (principal); J43.9 Emphysema, unspecified; I10 Essential (primary) hypertension; I73.00 Raynaud's syndrome without gangrene; E78.5 Hyperlipidemia, unspecified; E28.2 Polycystic ovarian syndrome; D80.4 Selective deficiency of immunoglobulin M [IgM]; D83.9 Common variable immunodeficiency, unspecified; K58.9 Irritable bowel syndrome, unspecified; K21.9 Gastro-esophageal reflux disease without esophagitis; M79.7 Fibromyalgia; M17.0 Bilateral primary osteoarthritis of knee; Z86.718 Personal history of other venous thrombosis and embolism; Z90.49 Acquired absence of other specified parts of digestive tract; Z79.01 Long term (current) use of anticoagulants; Z79.899 Other long term (current) drug therapy; R91.1 Solitary pulmonary nodule
CPT/HCPCS: 36415; 74176; 80053; 81001; 83605; 85025; 87086; 96365; 99284; J0696

== ENCOUNTER 2025-09-30 12:34 | Outpatient (CLI) | payer MEDICARE, OTHER, SELFPAY ==
--- NOTE | ~2025-09-30 | US_ITS ---
EXAMINATION: US pelvic complete INDICATION: Postmenopausal bleeding Comparison:No prior studies for comparison. TECHNIQUE: Multiple transabdominal and endovaginal sonographic images of the pelvis performed. FINDINGS: The uterus measures 3.4 x 1.4 x 2.5 cm. The endometrial complex measures 3 mm. The right ovary not visualized. Left ovary measures 1.8 x 1.4 x 1.4 cm. There is no free fluid in the pelvis. There are no abnormal masses seen on either side. IMPRESSION: 1. Atrophic uterus. Otherwise, unremarkable pelvic ultrasound. Reviewed, dictated and finalized at location I. 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
== END 2025-09-30 12:35 | disposition home or self-care (01) ==
LOC: MICIMG 12:38
PROVIDERS: PCP Student in an Organized Health Care Education/Training Program
DX: N85.8 Other specified noninflammatory disorders of uterus (principal); N93.8 Other specified abnormal uterine and vaginal bleeding
CPT/HCPCS: 76856